=== PATIENT | female | born 1955 | race Caucasian/White ===

== ENCOUNTER 2019-01-13 17:05 | Inpatient (IN) ==
[2019-01-13] MEDS ORDERED: ALBUT/IPRATROP 3MG/0.5MG NEB 3 ML VIAL NEB STA ×2 (17:35→19:48)
--- NOTE | 2019-01-13 17:56 | XRay Report ---
XR chest 1V portable HISTORY: 63 years-old Female febrile, cough, hypoxic, ro pna acute cough with fever and hypoxia COMPARISON: Chest CT 02/14/2016, chest radiograph 02/14/2016 TECHNIQUE: Portable AP view of the chest FINDINGS: Cardiac silhouette is enlarged, unchanged. Mild pulmonary vascular congestion without pneumothorax, l arge pleural effusion or overt pulmonary edema. Ill-defined bibasilar opacities. Bones of the chest a ppear grossly intact. IMPRESSION: 1. Cardiomegaly without overt pulmonary edema. 2. Bibasilar opacities are likely secondary to summation density with mild atelectasis or pneumonitis also in the differential. The above report was generated using voice recognition software. It may contain grammatical, syntax o r spelling errors. Electronically signed by: Bismark Lieberman M.D. 01/13/2019 5:55 PM
[2019-01-13 18:09] LABS: Basophils # (auto) 0.02 K/uL (0-0.2); Basophils % (auto) 0.2 %; Eosinophils # (auto) 0.07 K/uL (0-0.5); Eosinophils % (auto) 0.8 %; Hematocrit (blood only) 45.1 % (37-47); Hemoglobin 13.9 g/dL (12.0-16.0); Immature Granulocytes # (auto) 0.02 K/uL (0.00-0.02); Immature Granulocytes % (auto) 0.2 %; Lymphocytes # (auto) 1.43 K/uL (1.2-3.4); Lymphocytes % (auto) 15.6 %; Mean Corpuscular Hgb Conc 30.8 g/dL (32-36); Mean Corpuscular Volume 97.6 fL (80-100); Mean Platelet Volume 10.3 fL (7.4-10.4); Monocytes # (auto) 0.49 K/uL (0.11-0.59); Monocytes % (auto) 5.4 %; Neutrophils # (auto) 7.11 K/uL (1.4-6.5); Neutrophils % (auto) 77.8 %; Platelet Count 211 K/uL (130-400); RDW Coefficient of Variation 15.3 % (11.5-14.5); RDW Standard Deviation 54.6 fL (36.4-46.3); Red Blood Count 4.62 M/uL (4.2-5.4); White Blood Count 9.14 K/uL (4.8-10.8)
[2019-01-13 18:25] LABS: Base Excess VBG 6.6 mEq/L; Oxygen Saturation VBG 70.8 %; pH VBG 7.37 (7.36-7.41)
[2019-01-13] MEDS ORDERED: KETOROLAC (**for OR use only**) 30 MG/ML VIAL IV ONE (18:25)
[2019-01-13] MEDS ORDERED: METOCLOPRAMIDE HCL INJ 5 MG/ML 2 ML VIAL IV ONE (18:28)
[2019-01-13] MEDS ORDERED: DiphenhydrAMINE HCL 50 MG/ML VIAL IV STA (18:28)
[2019-01-13 18:33] LABS: Alanine Aminotransferase 27 U/L (12-78); Albumin Level 3.6 gm/dl (3.4-5.0); Aspartate Aminotransferase 17 U/L (15-37); BUN Creatinine Ratio 28.3 (10-20); Bilirubin Direct 0.1 mg/dl (0-0.2); Blood Urea Nitrogen 17 mg/dl (7-18); Calcium 9.1 mg/dl (8.5-10.1); Carbon Dioxide 32 mmol/L (21-32); Chloride 99 mmol/L (98-107); Creatinine Clr Calc Pharmacy 103.6 ml/min; Est GFR (African American) 113.4; Est GFR (Non-African American) 97.8; Glucose 107 mg/dl (70-99); Potassium 4.6 mmol/L (3.5-5.1); Sodium 135 mmol/L (136-145)
[2019-01-13 18:37] LABS: Alkaline Phosphatase 79 U/L (45-117); Bilirubin,Total 0.4 mg/dl (0.2-1); Total Protein 8.1 gm/dl (6.4-8.2)
[2019-01-13 18:44] LABS: Appearance Urine Clear (Clear); Bacteria Urine Automated 1+ (Negative); Bilirubin Urine Negative (Negative); Blood Urine Negative (Negative); Color Urine Yellow; Epithelial Cell Urine Auto >30 /lpf (0-5); Glucose Urine UA Negative (Negative); Ketones Urine Negative (Negative); Leukocyte Esterase Urine Negative (Negative); Nitrite Urine Negative (Negative); Protein Urine Trace (Negative); RBC Urine Automated 0-4 /hpf (0-4); Specific Gravity Urine 1.019 (1.000-1.030); Urobilinogen Urine Negative (Negative); pH Urine 6.5 (4.5-7.5)
[2019-01-13 18:48] LABS: Influenza A virus by PCR Neg for Influ A (Neg); Influenza B virus by PCR Neg for Influ B (Neg)
[2019-01-13 18:49] LABS: Partial Thromboplastin Time 26.8 Seconds (21.0-31.0); Prothrombin Time 10.4 Seconds (9.0-12.0)
[2019-01-13 18:59] LABS: Troponin I < 0.015 ng/ml (0-0.045)
[2019-01-13] MEDS ORDERED: OPTIRAY 320 125ml IV PRN (19:19)
--- NOTE | 2019-01-13 19:31 | CT Scan Report ---
CT OF THE HEAD WITHOUT CONTRAST CLINICAL HISTORY: Headache. COMPARISON STUDY: No previous studies for comparison. CT DOSE: 537.48 mGy.cm TECHNIQUE: Helical axial images of the head were obtained without IV contrast. Automated exposure con trol was utilized for the study. A dose lowering technique was utilized adhering to the principles o f ALARA. FINDINGS: No acute intracranial hemorrhage, midline shift or mass effect is present. Exam is mildly c ompromised by artifact. The basilar cisterns are patent. There are no extra-axial collections. Ventri cular system is normal. Aguilar-white differentiation is maintained. There are no findings to suggest ac [place]vik dural sinus thrombosis or acute territorial infarct. There are no significant calvarial abnormali ties. IMPRESSION: No acute intracranial findings. Electronically signed by: Nehemias Holt M.D. 01/13/2019 7:29 PM
--- NOTE | 2019-01-13 19:42 | CT Scan Report ---
CT ANGIOGRAPHY OF THE CHEST, PULMONARY EMBOLUS PROTOCOL CLINICAL HISTORY: Shortness of breath. Evaluate for pulmonary embolus. COMPARISON STUDY: Chest CT February 14, 2016. Chest radiograph performed earlier today. TECHNIQUE: Following IV administration of 119 mL of Optiray-320, helical axial images of the chest we re obtained utilizing the pulmonary embolus protocol. Maximal intensity projections and sagittal and coronal reformats were viewed on an independent 3D workstation. IV contrast was administered withou t complication. Automated exposure control was utilized for the study. A dose lowering technique wa s utilized adhering to the principles of ALARA. CT DOSE: 817.72 mGy.cm FINDINGS: No pulmonary emboli are identified. There is mild dilatation of the central pulmonary daisha kiah. The heart is moderately enlarged. There is moderate coronary artery calcification. There is no pericardial effusion. No enlarged axillary, mediastinal or hilar lymph nodes are present. Central air ways are patent. There is mild emphysema. Mild right lower lobe airspace opacity is present. Mild int erlobular septal thickening is present. There is no pneumothorax or pleural effusion. Bony thorax is unremarkable. Upper abdomen is unremarkable. A 5 mm subpleural lingular nodule on axial image 116 of [address] of February 14, 2016. This is benign given stability. IMPRESSION: 1. No pulmonary emboli identified. 2. Mild right lower lobe airspace opacity which favors atelectasis although a small focus of pneumoni a could appear similar. 3. Moderate cardiomegaly and coronary artery calcification. 4. Mild dilatation of the central pulmonary arteries which raises the possibility of portal hypertens ion. 5. Mild interstitial pulmonary edema. Electronically signed by: Nehemias Holt M.D. 01/13/2019 7:41 PM
[2019-01-13] MEDS ORDERED: methylPREDNISolone 125 MG/2 ML VIAL IV STA (19:48)
--- NOTE | 2019-01-13 20:05 | Emergency Department Note ---
Entered by Moose Denney acting as a scribe for Shaun Mcnulty History of Present Illness General Chief complaint: Fever Stated complaint: FEVER OXYGEN LOW Time Seen by Provider: 01/13/19 17:30 Source: patient Mode of arrival: ambulatory History of Present Illness Provider complaint: Fever Onset (ago): hour(s) 3 Location: head Pain Consistency: + constant Maximum Pain Intensity: 10 Current Pain Intensity: 10 Associated symptoms: + headaches and + shortness of breath; no chest pain Patient is a 63 year old female who presents herself to the ER with complaint of a difficult he breathing beginning yesterday. Patient has been having accompanying symptoms of headaches and subjective fevers. Patient has been a past smoker for 47 years having smoked 2 packs a day. She currently rates her pain as constant at value of 10 on the pain intensity scale. Patient denies chest pain. No nausea, vomiting, diarrhea, neck pain, pain with urination. Home Medications Home Medications Medication Instructions Recorded Confirmed Type acetaminophen [Tylenol Extra 1,500 mg PO Q4H PRN 01/13/19 01/13/19 History Strength] amlodipine 5 mg PO M 01/13/19 01/13/19 History aspirin 81 mg PO QA 01/13/19 01/13/19 History carvedilol 3.125 mg PO BID 01/13/19 01/13/19 History fluticasone propionate [Flonase 2 spray INTRANASAL QA 01/13/19 01/13/19 History Allergy Relief] furosemide 20 mg PO HS 01/13/19 01/13/19 History ipratropium-albuterol [Combivent 1 puff INHALATION Q4H PRN 01/13/19 01/13/19 History Respimat] levothyroxine 125 mcg PO QAM 01/13/19 01/13/19 History lisinopril 40 mg PO QAM 01/13/19 01/13/19 History loratadine 10 mg PO QAM 01/13/19 01/13/19 History simvastatin 20 mg PO HS 01/13/19 01/13/19 History Allergies Allergy/AdvReac Type Severity Reaction Status Date / Time metoprolol AdvReac Mild Hypertensio Verified 01/13/19 18:40 n tetracycline AdvReac Mild HEADACHE Verified 01/13/19 18:00 Past Med/Surg History Medical History Constipation Social History Preferred Language: Bahraini Feels Safe at Home: Yes Smoking Status: Current every day smoker Review of Systems See HPI for pertinent positives & negatives. and A total of 10 systems reviewed and were otherwise negative Physical Exam Vital Signs Vital Signs - 24 hr 01/13/19 17:24 01/13/19 17:50 01/13/19 18:00 Temperature 36.7 C Temperature Source Oral Sepsis Recent Fever Within 48 Hours No Sepsis Action Taken by Nursing No Action Required Pulse Rate 79 80 79 Pulse Rate from SpO2 Sensor 79 79 Pulse Rhythm Regular Pulse Strength Normal Respiratory Rate 16 17 21 Respiratory Effort / Characteristics Non-Labored Respiratory Depth Normal Respiratory Pattern Regular Blood Pressure 160/81 H 171/95 H Blood Pressure Mean 107 120 Blood Pressure Position Sitting Pulse Oximetry 82 L 94 94 Oxygen Delivery Method Room Air Room Air Oxygen Flow Rate 01/13/19 18:01 01/13/19 18:05 01/13/19 18:10 Temperature Temperature Source Sepsis Recent Fever Within 48 Hours Sepsis Action Taken by Nursing Pulse Rate 78 77 Pulse Rate from SpO2 Sensor 79 77 Pulse Rhythm Pulse Strength Respiratory Rate 24 13 Respiratory Effort / Characteristics Respiratory Depth Respiratory Pattern Blood Pressure 178/87 H Blood Pressure Mean 117 Blood Pressure Position Pulse Oximetry 93 94 93 Oxygen Delivery Method Nasal Cannula Nasal Cannula Oxygen Flow Rate 3 3 01/13/19 18:21 01/13/19 18:30 01/13/19 18:32 Temperature Temperature Source Sepsis Recent Fever Within 48 Hours Sepsis Action Taken by Nursing Pulse Rate 84 75 79 Pulse Rate from SpO2 Sensor 75 81 Pulse Rhythm Pulse Strength Respiratory Rate 16 12 12 Respiratory Effort / Characteristics Respiratory Depth Respiratory Pattern Blood Pressure 161/71 H Blood Pressure Mean 101 Blood Pressure Position Pulse Oximetry 93 94 Oxygen Delivery Method Oxygen Flow Rate 01/13/19 18:40 01/13/19 18:50 01/13/19 19:00 Temperature Temperature Source Sepsis Recent Fever Within 48 Hours Sepsis Action Taken by Nursing Pulse Rate 75 81 76 Pulse Rate from SpO2 Sensor 76 80 76 Pulse Rhythm Pulse Strength Respiratory Rate 21 20 23 Respiratory Effort / Characteristics Respiratory Depth Respiratory Pattern Blood Pressure Blood Pressure Mean Blood Pressure Position Pulse Oximetry 93 91 94 Oxygen Delivery Method Oxygen Flow Rate 01/13/19 19:01 01/13/19 19:10 Temperature Temperature Source Sepsis Recent Fever Within 48 Hours Sepsis Action Taken by Nursing Pulse Rate 74 78 Pulse Rate from SpO2 Sensor 75 78 Pulse Rhythm Pulse Strength Respiratory Rate 20 20 Respiratory Effort / Characteristics Respiratory Depth Respiratory Pattern Blood Pressure 141/91 H Blood Pressure Mean 107 Blood Pressure Position Pulse Oximetry 93 95 Oxygen Delivery Method Oxygen Flow Rate GENERAL: She is oriented to person, place, and time. She appears well-developed and well-nourished. She does not appear distressed. HENT: Exam performed. Head: Normocephalic and atraumatic. Pain on palpation of the frontal and maxillary sinuses reproducing the complaint of headache Right Ear: External ear normal. No mastoid tenderness. Left Ear: External ear normal. No mastoid tenderness. Mouth/Throat: The oropharynx is clear and moist. No trismus in the jaw. No dental abscesses or uvula swelling. No oropharyngeal exudate or tonsillar abscesses. EYES: Conjunctivae and EOM are normal. Pupils are equal, round, and reactive to light. Right eye exhibits no discharge. Left eye exhibits no discharge. No scleral icterus. NECK: Normal range of motion. Neck supple. No JVD present. No spinous process tenderness present. No carotid bruit present. No rigidity. No tracheal deviation and normal range of motion present. No Brudzinski's sign and no Kernig's sign noted. CV: Normal rate, regular rhythm, normal heart sounds and intact distal pulses. There is no peripheral edema. Palpable radial pulses bue. PULM/CHEST: Diminished breath sounds bilaterally Chest Wall: She exhibits no tenderness. ABD: The abdomen is soft. Bowel sounds are normal. She has no distension. No mass is present. There is no tenderness. There is no rebound, no guarding, no Jones's sign and no tenderness at McBurney's point. Rovsig negative MUSC/SKEL: Normal range of motion. There is no peripheral edema, tenderness or deformity. LYMPH: No cervical adenopathy. NEURO: She is alert and oriented to person, place, and time. She has normal strength. No cranial nerve deficit or sensory deficit. Coordination and gait no rmal. GCS eye subscore is 4. GCS verbal subscore is 5. GCS motor subscore is 6. cerbellar tests wnl. SKIN: Skin is warm and dry. She is not diaphoretic. PSYCH: She has a normal mood and affect. Her behavior is normal. Judgment and thought content normal. Course 173: Past medical records reviewed. The patient was evaluated in room A10. A complete history and physical examination was performed. She was found to be 82% on room room air 1 pulse oximetry was applied. Placed on 2 L nasal cannula which improved her condition. 1932: The patients vital signs are stable on continuous nasal cannula oxygen. Patient has mild expiratory wheezing. Status post Benadryl and Reglan medication, the headache pain is now 1 out of 10. 1951: Vital signs stable on nasal cannula oxygen. Labs within normal limits. Head CT within normal limits. CTA of the chest showed no PE, mild right lower lobe airspace opacity favoring atelectasis, however the radiologist could not rule out small focus of pneumonia. Patient continues to have mild expiratory wh eezing. We will treat with repeat duo nebs and steroids. Patient will be admitted for hypoxia, although the patient never been formally diagnosed with COPD, it is thought that she has an underlying diagnosis of COPD given her clinical presentation as well as her long smoking history. I spoke with Dr. Harmon regarding the patient's case. He will admit the patient under his care for further treatment. The patient has verbalized agreement of the treatment plan. Dr. Harmon who states that he wishes to evaluate the patient first and determine which if any antibiotics are needed at this time. Administered Medications Ioversol (Optiray 320 125ml) 119 ml IV ONCE PRN PRN Reason: Interaction Checking Stop: 01/17/19 19:18 Last Admin: 01/13/19 19:20 Dose: 119 ml Documented by: [id number] Discontinued Medications Albuterol (Duoneb) 3 ml NEB NOW STA Stop: 01/13/19 17:36 Last Admin: 01/13/19 18:12 Dose: 3 ml Documented by: [id number] Diphenhydramine HCl (Benadryl) 25 mg IV NOW STA Stop: 01/13/19 18:29 Last Admin: 01/13/19 18:39 Dose: 25 mg Documented by: [id number] Ketorolac Tromethamine (Toradol (For Or Use Only)) 15 mg IV ONE ONE Stop: 01/13/19 18:26 Last Admin: 01/13/19 18:43 Dose: Not Given Documented by: [id number] Metoclopramide HCl (Reglan) 5 mg IV ONE ONE Stop: 01/13/19 18:29 Last Admin: 01/13/19 18:39 Dose: 5 mg Documented by: [id number] Medical Decision Making Medical Records Attestation: I reviewed the patient's medical records. Home Medications Current Medication List: was personally reviewed by me Laboratory Data Attestation: I reviewed the patient's lab results. Result diagrams: 01/13/19 17:59 01/13/19 17:59 Lab Results 01/13/19 01/13/19 01/13/19 Range/Units 17:59 17:59 17:59 WBC 9.14 (4.8-10.8) K/uL RBC 4.62 (4.2-5.4) M/uL Hgb 13.9 (12.0-16.0) g/dL Hct 45.1 (37-47) % MCV 97.6 (80-100) fL MCH 30.1 (25-34) pg MCHC 30.8 L (32-36) g/dL RDW Std Deviation 54.6 H (36.4-46.3) fL RDW Coeff of Naa 15.3 H (11.5-14.5) % Plt Count 211 (130-400) K/uL MPV 10.3 (7.4-10.4) fL Immature Gran % (Auto) 0.2 % Neut % (Auto) 77.8 % Lymph % (Auto) 15.6 % [place] % (Auto) 5.4 % Eos % (Auto) 0.8 % Baso % (Auto) 0.2 % Immature Gran # (Auto) 0.02 (0.00-0.02) K/uL Neut # (Auto) 7.11 H (1.4-6.5) K/uL Lymph # (Auto) 1.43 (1.2-3.4) K/uL [place] # (Auto) 0.49 (0.11-0.59) K/uL Eos # (Auto) 0.07 (0-0.5) K/uL Baso # (Auto) 0.02 (0-0.2) K/uL PT 10.4 (9.0-12.0) Seconds INR 1.0 (0.9-1.1) APTT 26.8 (21.0-31.0) Seconds PTT Ratio 1.0 VBG pH (7.36-7.41) VBG pCO2 (38-50) mmHg VBG pO2 mmHg VBG HCO3 mmol/L VBG O2 Saturation % VBG Base Excess mEq/L Barometric Pressure mm/Hg Sodium 135 L (136-145) mmol/L Potassium 4.6 (3.5-5.1) mmol/L Chloride 99 (98-107) mmol/L Carbon Dioxide 32 (21-32) mmol/L Anion Gap 5.0 (3-11) BUN 17 (7-18) mg/dl Creatinine 0.61 (0.6-1.2) mg/dl Est Cr Clr Drug Dosing 103.6 ml/min Est GFR ( Amer) 113.4 Est GFR (Non-Af Amer) 97.8 BUN/Creatinine Ratio 28.3 H (10-20) Glucose 107 H (70-99) mg/dl Lactate (0.4-2.0) mmol/L Calcium 9.1 (8.5-10.1) mg/dl Magnesium 2.0 (1.8-2.4) mg/dl Total Bilirubin 0.4 (0.2-1) mg/dl Direct Bilirubin 0.1 (0-0.2) mg/dl AST 17 (15-37) U/L ALT 27 (12-78) U/L Alkaline Phosphatase 79 (45-117) U/L Troponin I < 0.015 (0-0.045) ng/ml Total Protein 8.1 (6.4-8.2) gm/dl Albumin 3.6 (3.4-5.0) gm/dl Lipase 105 (73-393) U/L Urine Color Urine Appearance (Clear) Urine pH (4.5-7.5) Ur Specific [place] (1.000-1.030) Urine Protein (Negative) Urine Glucose (UA) (Negative) Urine Ketones (Negative) Urine Blood (Negative) Urine Nitrite (Negative) Urine Bilirubin (Negative) Urine Urobilinogen (Negative) Ur Leukocyte Esterase (Negative) Urine WBC (Auto) (0-5) /hpf Urine RBC (Auto) (0-4) /hpf U Hyaline Cast (Auto) (0-5) /lpf U Epithel Cells (Auto) (0-5) /lpf Urine Bacteria (Auto) (Negative) Influenza Type A (PCR) (Neg) Influenza Type B (PCR) (Neg) 01/13/19 01/13/19 01/13/19 Range/Units 17:59 17:59 17:59 WBC (4.8-10.8) K/uL RBC (4.2-5.4) M/uL Hgb (12.0-16.0) g/dL Hct (37-47) % MCV (80-100) fL MCH (25-34) pg MCHC (32-36) g/dL RDW Std Deviation (36.4-46.3) fL RDW Coeff of Naa (11.5-14.5) % Plt Count (130-400) K/uL MPV (7.4-10.4) fL Immature Gran % (Auto) % Neut % (Auto) % Lymph % (Auto) % [place] % (Auto) % Eos % (Auto) % Baso % (Auto) % Immature Gran # (Auto) (0.00-0.02) K/uL Neut # (Auto) (1.4-6.5) K/uL Lymph # (Auto) (1.2-3.4) K/uL [place] # (Auto) (0.11-0.59) K/uL Eos # (Auto) (0-0.5) K/uL Baso # (Auto) (0-0.2) K/uL PT (9.0-12.0) Seconds INR (0.9-1.1) APTT (21.0-31.0) Seconds PTT Ratio VBG pH 7.37 (7.36-7.41) VBG pCO2 61 H (38-50) mmHg VBG pO2 39 mmHg VBG HCO3 34 mmol/L VBG O2 Saturation 70.8 % VBG Base Excess 6.6 mEq/L Barometric Pressure 733.3 mm/Hg Sodium (136-145) mmol/L Potassium (3.5-5.1) mmol/L Chloride (98-107) mmol/L Carbon Dioxide (21-32) mmol/L Anion Gap (3-11) BUN (7-18) mg/dl Creatinine (0.6-1.2) mg/dl Est Cr Clr Drug Dosing ml/min Est GFR ( Amer) Est GFR (Non-Af Amer) BUN/Creatinine Ratio (10-20) Glucose (70-99) mg/dl Lactate 1.0 (0.4-2.0) mmol/L Calcium (8.5-10.1) mg/dl Magnesium Cancelled (1.8-2.4) mg/dl Total Bilirubin (0.2-1) mg/dl Direct Bilirubin (0-0.2) mg/dl AST (15-37) U/L ALT (12-78) U/L Alkaline Phosphatase (45-117) U/L Troponin I Cancelled (0-0.045) ng/ml Total Protein (6.4-8.2) gm/dl Albumin (3.4-5.0) gm/dl Lipase Cancelled (73-393) U/L Urine Color Urine Appearance (Clear) Urine pH (4.5-7.5) Ur Specific [place] (1.000-1.030) Urine Protein (Negative) Urine Glucose (UA) (Negative) Urine Ketones (Negative) Urine Blood (Negative) Urine Nitrite (Negative) Urine Bilirubin (Negative) Urine Urobilinogen (Negative) Ur Leukocyte Esterase (Negative) Urine WBC (Auto) (0-5) /hpf Urine RBC (Auto) (0-4) /hpf U Hyaline Cast (Auto) (0-5) /lpf U Epithel Cells (Auto) (0-5) /lpf Urine Bacteria (Auto) (Negative) Influenza Type A (PCR) (Neg) Influenza Type B (PCR) (Neg) 01/13/19 01/13/19 Range/Units 18:10 18:22 WBC (4.8-10.8) K/uL RBC (4.2-5.4) M/uL Hgb (12.0-16.0) g/dL Hct (37-47) % MCV (80-100) fL MCH (25-34) pg MCHC (32-36) g/dL RDW Std Deviation (36.4-46.3) fL RDW Coeff of Naa (11.5-14.5) % Plt Count (130-400) K/uL MPV (7.4-10.4) fL Immature Gran % (Auto) % Neut % (Auto) % Lymph % (Auto) % [place] % (Auto) % Eos % (Auto) % Baso % (Auto) % Immature Gran # (Auto) (0.00-0.02) K/uL Neut # (Auto) (1.4-6.5) K/uL Lymph # (Auto) (1.2-3.4) K/uL [place] # (Auto) (0.11-0.59) K/uL Eos # (Auto) (0-0.5) K/uL Baso # (Auto) (0-0.2) K/uL PT (9.0-12.0) Seconds INR (0.9-1.1) APTT (21.0-31.0) Seconds PTT Ratio VBG pH (7.36-7.41) VBG pCO2 (38-50) mmHg VBG pO2 mmHg VBG HCO3 mmol/L VBG O2 Saturation % VBG Base Excess mEq/L Barometric Pressure mm/Hg Sodium (136-145) mmol/L Potassium (3.5-5.1) mmol/L Chloride (98-107) mmol/L Carbon Dioxide (21-32) mmol/L Anion Gap (3-11) BUN (7-18) mg/dl Creatinine (0.6-1.2) mg/dl Est Cr Clr Drug Dosing ml/min Est GFR ( Amer) Est GFR (Non-Af Amer) BUN/Creatinine Ratio (10-20) Glucose (70-99) mg/dl Lactate (0.4-2.0) mmol/L Calcium (8.5-10.1) mg/dl Magnesium (1.8-2.4) mg/dl Total Bilirubin (0.2-1) mg/dl Direct Bilirubin (0-0.2) mg/dl AST (15-37) U/L ALT (12-78) U/L Alkaline Phosphatase (45-117) U/L Troponin I (0-0.045) ng/ml Total Protein (6.4-8.2) gm/dl Albumin (3.4-5.0) gm/dl Lipase (73-393) U/L Urine Color Yellow Urine Appearance Clear (Clear) Urine pH 6.5 (4.5-7.5) Ur Specific [place] 1.019 (1.000-1.030) Urine Protein Trace H (Negative) Urine Glucose (UA) Negative (Negative) Urine Ketones Negative (Negative) Urine Blood Negative (Negative) Urine Nitrite Negative (Negative) Urine Bilirubin Negative (Negative) Urine Urobilinogen Negative (Negative) Ur Leukocyte Esterase Negative (Negative) Urine WBC (Auto) 1-5 (0-5) /hpf Urine RBC (Auto) 0-4 (0-4) /hpf U Hyaline Cast (Auto) 1-5 (0-5) /lpf U Epithel Cells (Auto) >30 H (0-5) /lpf Urine Bacteria (Auto) 1+ H (Negative) Influenza Type A (PCR) Neg for Influ A (Neg) Influenza Type B (PCR) Neg for Influ B (Neg) Imaging Data Attestation: I personally reviewed and interpreted this imaging study as follows: Radiologist's Impression: Radiology results as stated below per my review and the radiologist's interpretation: XR chest 1V portable HISTORY: 63 years-old Female febrile, cough, hypoxic, ro pna acute cough with fever and hypoxia COMPARISON: Chest CT 02/14/2016, chest radiograph 02/14/2016 TECHNIQUE: Portable AP view of the chest FINDINGS: Cardiac silhouette is enlarged, unchanged. Mild pulmonary vascular congestion wi thout pneumothorax, large pleural effusion or overt pulmonary edema. Ill-defined bibasilar opacities. Bones of the chest appear grossly intact. IMPRESSION: 1. Cardiomegaly without overt pulmonary edema. CT OF THE HEAD WITHOUT CONTRAST CLINICAL HISTORY: Headache. COMPARISON STUDY: No previous studies for comparison. CT DOSE: 537.48 mGy.cm TECHNIQUE: Helical axial images of the head were obtained without IV contrast. Automated exposure control was utilized for the study. A dose lowering technique was utilized adhering to the principles of ALARA. FINDINGS: No acute intracranial hemorrhage, midline shift or mass effect is present. Exam is mildly compromised by artifact. The basilar cisterns are patent. There are no extra-axial collections. Ventricular system is normal. Aguilar-white differentiation is maintained. There are no findings to suggest acute dural sinus thrombosis or acute territorial infarct. There are no significant calvarial abnormalities. IMPRESSION: No acute intracranial findings. Electronically signed by: Nehemias Holt M.D. 01/13/2019 7:29 PM Dictated: 01/13/191926 Transcribed: 01/13/191926 2. Bibasilar opacities are likely secondary to summation density with mild atelectasis or pneumonitis also in the differential. The above report was generated using voice recognition software. It may contain grammatical, syntax or spelling errors. Electronically signed by: Bismark Lieberman M.D. 01/13/2019 5:55 PM Dictated: 01/13/191752 Transcribed: 01/13/191752 CT ANGIOGRAPHY OF THE CHEST, PULMONARY EMBOLUS PROTOCOL CLINICAL HISTORY: Shortness of breath. Evaluate for pulmonary embolus. COMPARISON STUDY: Chest CT February 14, 2016. Chest radiograph performed earlier today. TECHNIQUE: Following IV administration of 119 mL of Optiray-320, helical axial images of the chest were obtained utilizing the pulmonary embolus protocol. Maximal intensity projections and sagittal and coronal reformats were viewed on an independent 3D workstation. IV contrast was administered without complication. Automated exposure control was utilized for the study. A dose lowering technique was utilized adhering to the principles of ALARA. CT DOSE: 817.72 mGy.cm FINDINGS: No pulmonary emboli are identified. There is mild dilatation of the central pulmonary arteries. The heart is moderately enlarged. There is moderate coronary artery calcification. There is no pericardial effusion. No enlarged axillary, mediastinal or hilar lymph nodes are present. Central airways are patent. There is mild emphysema. Mild right lower lobe airspace opacity is present. Mild interlobular septal thickening is present. There is no pneumothorax or pleural effusion. Bony thorax is unremarkable. Upper abdomen is unremarkable. A 5 mm subpleural lingular nodule on axial image 116 of [address] of February 14, 2016. This is benign given stability. IMPRESSION: 1. No pulmonary emboli identified. 2. Mild right lower lobe airspace opacity which favors atelectasis although a small focus of pneumonia could appear similar. 3. Moderate cardiomegaly and coronary artery calcification. 4. Mild dilatation of the central pulmonary arteries which raises the possibil ity of portal hypertension. 5. Mild interstitial pulmonary edema. Electronically signed by: Nehemias Holt M.D. 01/13/2019 7:41 PM Dictated: 01/13/191930 Transcribed: 01/13/191930 ECG Data Attestation: I personally reviewed and interpreted this ECG as follows: Indication: other (Fever) Rate (beats per minute): 79 Rhythm: normal sinus Findings: + other (Pr qrs qtc wnl ); no ST depression and no ST elevation Blood Pressure Blood Pressure Findings: Elevated blood pressure Blood Pressure Disposition: Referred to patients primary care provider [facility] Narrative 1731: Past medical records reviewed. The patient was evaluated in room A10. A complete history and physical examination was performed. She was found to be 82% on room room air 1 pulse oximetry was applied. Placed on 2 L nasal cannula which improved her condition. 1932: The patients vital signs are stable on continuous nasal cannula oxygen. Patient has mild expiratory wheezing. Status post Benadryl and Reglan medication, the headache pain is now 1 out of 10. 1951: Vital signs stable on nasal cannula oxygen. Labs within normal limits. Head CT within normal limits. CTA of the chest showed no PE, mild right lower lobe airspace opacity favoring atelectasis, however the radiologist could not rule out small focus of pneumonia. Patient continues to have mild expiratory wheezing. We will treat with repeat duo nebs and steroids. Patient will be admitted for hypoxia, although the patient never been formally diagnosed with COPD, it is thought that she has an underlying diagnosis of COPD given her clinical presentation as well as her long smoking history. I spoke with Dr. Harmon regarding the patient's case. He will admit the patient under his care for further treatment. The patient has verbalized agreement of the treatment plan. Dr. Harmon who states that he wishes to evaluate the patient first and determine which if any antibiotics are needed at this time. Impression & Plan Hypoxia Discharge Plan Visit Data Chief Complaint: Fever Stated Complaint: FEVER OXYGEN LOW ED Provider: Shaun Mcnulty Discharge Problem: Hypoxia Forms Stand Alone Forms: My [facility] Prescriptions Prescriptions: No Action amlodipine 5 mg tablet 5 mg PO QAM RF: 0 aspirin 81 mg Tablet,Delayed Release (Dr/Ec) 81 mg PO QAM RF: 0 acetaminophen [Tylenol Extra Strength] 500 mg Tablet 1,500 mg PO Q4H PRN (Reason: Pain) RF: 0 carvedilol 3.125 mg tablet 3.125 mg PO BID RF: 0 simvastatin 20 mg tablet 20 mg PO HS RF: 0 levothyroxine 125 mcg tablet 125 mcg PO QAM RF: 0 furosemide 20 mg tablet 20 mg PO HS RF: 0 lisinopril 40 mg tablet 40 mg PO QAM RF: 0 fluticasone propionate [Flonase Allergy Relief] 50 mcg/actuation [place] ,Suspension 2 spray INTRANASAL QAM RF: 0 loratadine 10 mg Tablet 10 mg PO QAM RF: 0 Combivent Respimat 20-100 mcg/actuation Mist 1 puff INHALATION Q4H PRN (Reason: Wheezing) RF: 0 Referrals Referrals: Jesse Hannon MD [Primary Care Provider] - The scribe's documentation has been prepared under my direction and personally reviewed by me in its entirety. I confirm that the note above accurately reflects all work, treatment, procedures, and medical decision making performed by me.
[2019-01-13] MEDS ORDERED: NITROGLYCERIN SL 0.4 MG/TAB TAB SL PRN (21:41)
[2019-01-13] MEDS ORDERED: IPRATROPIUM BROMIDE/ALBUTEROL respimat INH INH PRN (21:41)
[2019-01-13] MEDS ORDERED: FUROSEMIDE 20 MG TAB PO SCH (21:41)
[2019-01-13] MEDS ORDERED: ONDANSETRON INJ 2 MG/ML 2 ML VIAL IV PRN (21:41)
[2019-01-13] MEDS: HEPARIN SOD 5,000 UNIT/0.5 ML VIAL SQ SCH (22:39)
[2019-01-13] MEDS: SIMVASTATIN 20 MG TAB PO SCH (22:39)
[2019-01-13] MEDS: CARVEDILOL 3.125 MG TAB PO SCH (22:39)
[2019-01-13] MEDS: LEVOFLOXACIN/D5W 750 MG/150 ML BAG IV SCH (22:40)
[2019-01-13] MEDS: IPRATROPIUM BROMIDE NEB SOLN 0.02% 2.5 ML VIAL INH SCH (22:44)
[2019-01-13] MEDS: LEVALBUTEROL 1.25MG/0.5ML NEB INH SCH (22:46)
--- NOTE | 2019-01-13 23:36 | History and Physical Report ---
DATE OF ADMISSION: 01/13/2019 CHIEF COMPLAINT: Headache and fever. HISTORY OF PRESENT ILLNESS: This is a 63-year-old female with past medical history significant for hyperlipidemia, hypothyroidism, prediabetes, coronary artery disease, chronic diastolic heart failure, carotid stenosis, obesity and tobacco use disorder who went to convenient care visit with severe headache and there in the convenient care she was found to have temperature of 101 and she was sent here. In the Emergency Room, her oxygen saturation was 82% on room air and she is saturating okay on 3 liters. She states the headaches are better now. She states she then felt short of breath. Denies any cough. She was having some sinus drainage, but that has improved. No earache. No blurred vision. No sore throat. No difficulty swallowing. Appetite is okay. No chest pain. No nausea. No abdominal pain. Normal bowel and bladder movements. No hematuria. No burning micturition. No melena or hematochezia. No rash. Currently feeling better. She lives alone. She walks without any help. Daughter is in the room. Daughter thinks she snores in the night when asked about it. ALLERGIES: METOPROLOL AND TETRACYCLINE. PAST MEDICAL HISTORY: As mentioned above. PAST SURGICAL HISTORY: Dilatation and curettage, laparoscopic cholecystectomy with cholangiography, ligation of oviducts, tonsillectomy. MEDICATIONS: The patient is on amlodipine 5 mg p.o. daily, levothyroxine 125 mcg p.o. daily, Coreg 3.125 mg p.o. b.i.d., Lasix 20 mg p.o. daily, lisinopril 40 mg p.o. daily, simvastatin 20 mg p.o. at bedtime, Flonase 2 sprays into each nostril daily, Claritin 10 mg p.o. daily, Combivent 1 puff every 4 hours p.r.n., Tylenol 325 mg p.o. q. 6 hours p.r.n. and aspirin 81 mg p.o. daily. FAMILY HISTORY: Significant for mother had rheumatoid arthritis and osteoarthritis, heart disorder in her 60s. Father had chronic obstructive pulmonary disease and asthma. Brother and sister have diabetes. SOCIAL HISTORY: She lives alone. Her about a month ago, quit smoking in 2017, smoked on average 1 pack a day for 35 years. Alcohol occasionally. No drug use. REVIEW OF SYMPTOMS: As per HPI. Rest of the review of symptoms is negative. PHYSICAL EXAMINATION: GENERAL: The patient is obese, currently not in acute distress. VITAL SIGNS: Temperature 36.7, pulse 77, respiratory rate 20, blood pressure 140/73 and oxygen 91% on 3 liters. HEENT: No pallor. No icterus. Pupils are equal, round and reactive to light. NECK: No JVD. No neck masses. No carotid bruits. CARDIOVASCULAR: S1, S2 heard. Regular rate and rhythm. No murmur. No gallop. RESPIRATORY: Normal AP diameter. No accessory muscle use. Diminished bilateral breath sounds. Occasional rhonchi. No wheezing. ABDOMEN: Soft. Bowel sounds present. Nontender. No distention. CENTRAL NERVOUS SYSTEM: Cranial nerves II through XII grossly intact. Nonfocal. EXTREMITIES: Trace pedal edema. No erythema seen. LABORATORY DATA: WBC 9.1, hemoglobin 13.9, hematocrit 45.1 and platelets 211. PT 10.4. INR 1. APTT 26.8. Venous blood gas: pH of 7.3, CO2 of 61, O2 of 39 and bicarbonate 34. Sodium 135, potassium 3.6, chloride 99, bicarbonate 32, BUN 17, creatinine 0.6, serum glucose 107, lactate 1, calcium 9.1, magnesium 2, total bilirubin 0.4, direct bilirubin 0.1, AST 17, ALT 27 and alkaline phosphatase 79. Troponin I less than 0.015. Lipase 105. Urinalysis, trace protein, otherwise unremarkable. Influenza A and B negative PCR. CT of the head, no acute intracranial findings. CT of the chest, no pulmonary emboli identified. Mild right lower airspace opacity which reveals atelectasis although small focus of pneumonia could also appear similar, cardiomegaly and coronary artery calcification, mild dilatation of central pulmonary arteries which there is a possibility of portal hypertension. Chest x-ray, cardiomegaly without overt pulmonary edema, bibasilar opacities mild atelectasis or pneumonitis. Electrocardiogram, normal sinus rhythm with rate of [address] changes seen. ASSESSMENT AND PLAN: This is a 63-year-old female went to care visit with severe headache and found to have fever and sent here to the Emergency Room and found to be in hypoxic at 82% on room air. The patient has a history of tobacco abuse, quit in 2017, smoked about 1 pack a day for 35 years. 1. Hypoxia, could be from chronic obstructive pulmonary disease exacerbation with diminished breath sounds and also possible pneumonia in right lower lobe, received Solu-Medrol and nebs in the Emergency Room. Currently saturating okay on 3 liters. We will continue oxygen, place on I.V. Solu-Medrol 40 mg t.i.d. and I.V. Levaquin. Follow the blood cultures. Nebs around the clock. Closely monitor on Med/Surg Tele. 2. History of non-ST elevation myocardial infarction, status post stent. Continue home medications of aspirin, Coreg and statin. Currently stable. 3. History of hypertension, continue Norvasc, Coreg and lisinopril. Monitor the blood pressure. 4. History of chronic diastolic congestive heart failure, continue home Lasix. The patient is on Coreg and lisinopril. 5. Hyperlipidemia, continue statin. 6. Prediabetes, we will place on diabetic diet and follow HbA1c level. Monitor blood sugars while on steroids. 7. Hypothyroidism, continue Synthroid. 8. Tobacco, quit in 2017. 9. Morbid obesity, may need nocturnal pulse ox study and two step prior to discharge and also may need sleep study as outpatient. 10. Deep venous thrombosis prophylaxis, we will place on heparin subQ. DISPOSITION: Closely monitor in the Med/Surg Tele. Level 1 full code. Physical therapy and occupational therapy prior to discharge. Social Service to help with discharge planning. TALID
[2019-01-14] MEDS: IPRATROPIUM BROMIDE NEB SOLN 0.02% 2.5 ML VIAL INH SCH ×4 (01:57→19:03)
[2019-01-14] MEDS: LEVALBUTEROL 1.25MG/0.5ML NEB INH SCH ×4 (01:58→19:03)
[2019-01-14] MEDS ORDERED: XOPENEX/ATROVENT 1.25mg/0.5MG NEB COMBO NEB SCH (02:00)
[2019-01-14] MEDS: methylPREDNISolone 40 MG in SYRINGE 0 ML IV SCH ×3 (03:57→21:21)
[2019-01-14 05:18] LABS: Eosinophils # (auto) 0.01 K/uL (0-0.5); Eosinophils % (auto) 0.1 %; Hematocrit (blood only) 45.5 % (37-47); Hemoglobin 14.5 g/dL (12.0-16.0); Immature Granulocytes # (auto) 0.03 K/uL (0.00-0.02); Immature Granulocytes % (auto) 0.3 %; Lymphocytes # (auto) 0.61 K/uL (1.2-3.4); Lymphocytes % (auto) 5.7 %; Mean Corpuscular Hgb Conc 31.9 g/dL (32-36); Mean Corpuscular Volume 96.4 fL (80-100); Mean Platelet Volume 9.7 fL (7.4-10.4); Monocytes # (auto) 0.08 K/uL (0.11-0.59); Monocytes % (auto) 0.8 %; Neutrophils # (auto) 9.91 K/uL (1.4-6.5); Neutrophils % (auto) 93.1 %; Platelet Count 195 K/uL (130-400); RDW Coefficient of Variation 14.9 % (11.5-14.5); RDW Standard Deviation 52.7 fL (36.4-46.3); Red Blood Count 4.72 M/uL (4.2-5.4); White Blood Count 10.64 K/uL (4.8-10.8)
[2019-01-14 05:45] LABS: BUN Creatinine Ratio 22.1 (10-20); Creatinine Clr Calc Pharmacy 91.6 ml/min; Est GFR (African American) 108.9; Magnesium 1.9 mg/dl (1.8-2.4); Potassium 4.4 mmol/L (3.5-5.1)
[2019-01-14] MEDS: HEPARIN SOD 5,000 UNIT/0.5 ML VIAL SQ SCH ×3 (06:22→21:23)
[2019-01-14] MEDS: LEVOTHYROXINE SODIUM 125 MCG TABLET PO SCH (06:23)
[2019-01-14 06:34] LABS: Estimated Average Glucose 146 mg/dl; Hemoglobin A1C 6.7 % (4.5-5.6)
[2019-01-14] MEDS: LISINOPRIL 40 MG TAB PO SCH (07:34)
[2019-01-14] MEDS: AMLODIPINE BESYLATE 5 MG TAB PO SCH (07:34)
[2019-01-14] MEDS: FLUTICASONE PROPIONATE NA SPR 16 GM BTL SCH (07:34)
[2019-01-14] MEDS: LORATADINE 10 MG TAB PO SCH (07:34)
[2019-01-14] MEDS: CARVEDILOL 3.125 MG TAB PO SCH ×2 (07:34→21:22)
[2019-01-14] MEDS: ASPIRIN 81 MG ECTAB PO SCH (07:34)
[2019-01-14] MEDS: ACETAMINOPHEN 325 MG TAB PO PRN ×2 (07:37→19:23)
[2019-01-14] MEDS ORDERED: CARBOHYDRATES FOR HYPOGLYCEMIA PO PRN (10:59)
[2019-01-14] MEDS ORDERED: GLUCAGON FOR INJ 1 MG VIAL SQ PRN (10:59)
[2019-01-14] MEDS ORDERED: GLUCOSE 10 TABS/TUBE PO PRN (10:59)
[2019-01-14] MEDS ORDERED: DEXTROSE 50% 50 ML SYRINGE IV PRN (10:59)
[2019-01-14] MEDS ORDERED: GLUCOSE 40% GEL 15 GM TUBE PO PRN (10:59)
[2019-01-14] MEDS ORDERED: PHARMACY GLYCEMIC MGMT CONSULT PRN (11:23)
--- NOTE | 2019-01-14 11:52 | Hospitalist Progress Note ---
Date of Service January 14, 2019 Assessment & Plan (1) Hypoxia: (2) Pneumonia: (3) Obesity (BMI 30.0-34.9): (4) Chronic diastolic (congestive) heart failure: (5) Pre-diabetes: (6) CAD (coronary artery disease): (7) Carotid stenosis: (8) HLD (hyperlipidemia): (9) Hypothyroid: Continue Abx, Nebs and steroids. Continue O2 and titrate as tolerated, Not on home O2, Spirometry, Ambulate, Lasix ROS-No Headache, No Visual Changes, No Nausea, No Vomiting, No Fever, No Chills, No Neck Pain or Stiffness, No Chest Pain, No Palpitations, No SOB, No PLASCENCIA, No Cough, No Sputum, No Wheezing, No Abdominal Pain, No Diarrhea, No Hematemesis, No Hemoptysis, No Unexpected Weight Loss, No Flank pain, No Melena, No Hematochezia, No Frequency, No Urgency, No Burning, No Hematuria, No Rashes, No Diaphoresis. Appetite is Normal, Feels fine Physical Exam Gen-AAO x 3, NAD, Afebrile, Pleasant, Obese, On 3 L to maintain 92% Head-NCAT, EOMI, PERRLA, Anicteric Sclera, No Posterior Pharyngeal Erythema Neck-Supple, No JVD, No Thyromegaly, No Masses, No LAD, No Bruits Lungs-Clear to Auscultation Bilaterally, No Rales, No Rhonchi, No Wheezing, No Crepitus Chest-No S4, +S1, +S2, No S3, No Murmurs, No Rubs, No Gallops, No Ectopy Abdomen-Soft, Bowel Sounds Present, Non Tender, Non Distended, No Hepatomegaly, No Splenomegaly, No Palpable Masses, No Rebound, No Rigidity, No Guarding Musculoskeletal-Full Range of Motion Bilaterally, No CVAT Extremities-No Cyanosis, No Clubbing, No Edema Nuero-Cranial Nerves II-XII grossly intact, Motor WNL, DTRs WNL, Strength WNL, Non Focal Psych-Normal Mood Results & Data Vital Signs (Past 12 Hours) Vital Signs Temp Pulse Pulse Resp BP Pulse Ox 01/14/19 11:17 36.7 C 75 20 118/68 92 01/14/19 08:00 79 01/14/19 07:29 37.1 C 79 18 134/75 90 01/14/19 07:11 76 18 90 01/14/19 04:29 36.6 C 70 18 139/72 96 01/14/19 01:58 84 16 95 01/14/19 01:41 83 Allergies metoprolol Adverse Reaction (Mild, Verified 01/13/19 18:40) Hypertension tetracycline Adverse Reaction (Mild, Verified 01/13/19 18:00) HEADACHE Height/Weight/Isolation Height 5 ft Weight 100.2 kg Chemistry 01/13/19 01/14/19 17:59 05:09 Sodium 135 L 133 L Potassium 4.6 4.4 Chloride 99 97 L Carbon Dioxide 32 34 H Anion Gap 5.0 2.0 L BUN 17 15 Creatinine 0.61 0.69 Glucose 107 H 157 H Urinalysis 01/13/19 18:22 Urine Color Yellow Urine Appearance Clear Urine pH 6.5 Ur Specific [place] 1.019 Urine Protein Trace H Urine Glucose (UA) Negative Urine Ketones Negative Urine Blood Negative Urine Nitrite Negative Urine Bilirubin Negative Microbiology 01/13/19 21:50 Blood Blood Culture - Pending 01/13/19 21:58 Blood Blood Culture - Pending 01/13/19 18:22 Urine,Clean Catch Urine Culture - Pending
[2019-01-14] MEDS: FUROSEMIDE 20 MG in SYRINGE 0 ML IV SCH ×2 (12:06→17:24)
[2019-01-14] MEDS: INSULIN ASPART 100 UNITS/ML 3 ML PEN SC SCH ×3 (12:06→21:21)
[2019-01-14] MEDS ORDERED: INSULIN GLARGINE SOLOSTAR 100 UNITS/ML 3 ML PEN SC ONE ×2 (12:45→20:45)
--- NOTE | 2019-01-14 15:48 | Pharmacy Report ---
Glycemic Control Consultation - Date of Service January 14, 2019 - Scope Scope: Glycemic Pharmacist consulted by Dr Valdez on 5-3 for glycemic control and to write orders per [facility] inpatient glycemic control protocol - Objective Weight: 100.2 kg Accuchecks BSG (last 24hrs): 01/13/19 01/14/19 01/14/19 17:59 05:09 11:23 Glucose 107 H 157 H POC Glucose 226 H Laboratory Data (last 24hrs): 01/13/19 01/14/19 17:59 05:09 Potassium 4.6 4.4 Carbon Dioxide 32 34 H Anion Gap 5.0 2.0 L Creatinine 0.61 0.69 Est Cr Clr Drug Dosing 103.6 91.6 HbA1c: Hemoglobin A1c 6.7 % (4.5-5.6) H 01/14/19 05:09 - Recent Pertinent Medications Outpatient Anti-diabetic Regimen: * none * A1C 6.7% Risk Factors for Insulin Resistance: * Steroids: methylpred 40 iv q 8hr * Diet: T2DM - Assessment & Plan Assessment & Plan: ASSESSMENT: * 63 year old admitted with fever/POZO. PMH significant for hld, hypothyroidism, CAD, HF. No hx of diabetes per H&P * Currently receiving steroids - anticipate steriod induced hyperglycemia, will utilize basal/bolus dosing PLAN FOR INPATIENT GLYCEMIC CONTROL: * Basal insulin * Lantus 15 x 1, then scale for tonight 0-20 units based upon BSG * Bolus insulin * NovoLog per scale ACHS or Q6hrs while NPO * Goal Range: Low 110 mg/dL - High 140 mg/dL * Correction Factor: 20 mg/dL/unit * Nutritional / Prandial insulin per carb ratio of 1 unit per 7 grams CHO consumed * Please note that the plan above was derived based on current level of insulin resistance and hospital stress. These recommendations are appropriate for inpati ent admission only. Plan of care upon discharge will need to be reassessed to avoid potential outpatient hypo/hyperglycemia. Thank you.
[2019-01-14] MEDS ORDERED: INSULIN GLARGINE SOLOSTAR 100 UNITS/ML 3 ML PEN SC SCH (21:00)
[2019-01-14] MEDS: LEVOFLOXACIN/D5W 750 MG/150 ML BAG IV SCH (21:23)
[2019-01-14] MEDS: SIMVASTATIN 20 MG TAB PO SCH (21:23)
[2019-01-15] MEDS: INSULIN ASPART 100 UNITS/ML 3 ML PEN SC SCH ×6 (01:05→21:17)
[2019-01-15] MEDS: LEVALBUTEROL 1.25MG/0.5ML NEB INH SCH ×3 (02:05→13:56)
[2019-01-15] MEDS: IPRATROPIUM BROMIDE NEB SOLN 0.02% 2.5 ML VIAL INH SCH ×3 (02:05→13:56)
[2019-01-15] MEDS: methylPREDNISolone 40 MG in SYRINGE 0 ML IV SCH ×3 (04:30→20:05)
[2019-01-15] MEDS: HEPARIN SOD 5,000 UNIT/0.5 ML VIAL SQ SCH ×3 (07:12→21:20)
[2019-01-15] MEDS: LEVOTHYROXINE SODIUM 125 MCG TABLET PO SCH (07:12)
[2019-01-15] MEDS: LORATADINE 10 MG TAB PO SCH (08:22)
[2019-01-15] MEDS: CARVEDILOL 3.125 MG TAB PO SCH ×2 (08:22→21:16)
[2019-01-15] MEDS: ASPIRIN 81 MG ECTAB PO SCH (08:23)
[2019-01-15] MEDS: FUROSEMIDE 20 MG in SYRINGE 0 ML IV SCH ×2 (08:23→16:07)
[2019-01-15] MEDS: AMLODIPINE BESYLATE 5 MG TAB PO SCH (08:23)
[2019-01-15] MEDS: FLUTICASONE PROPIONATE NA SPR 16 GM BTL SCH (08:23)
[2019-01-15] MEDS: LISINOPRIL 40 MG TAB PO SCH (08:23)
[2019-01-15] MEDS: INSULIN GLARGINE SOLOSTAR 100 UNITS/ML 3 ML PEN SC SCH ×2 (08:23→21:18)
[2019-01-15 08:54] LABS: Hematocrit (blood only) 46.1 % (37-47); Hemoglobin 14.4 g/dL (12.0-16.0); Mean Corpuscular Hgb Conc 31.2 g/dL (32-36); Mean Corpuscular Volume 98.5 fL (80-100); Mean Platelet Volume 10.1 fL (7.4-10.4); Platelet Count 209 K/uL (130-400); RDW Coefficient of Variation 15.3 % (11.5-14.5); RDW Standard Deviation 54.8 fL (36.4-46.3); Red Blood Count 4.68 M/uL (4.2-5.4); White Blood Count 11.74 K/uL (4.8-10.8)
[2019-01-15 09:21] LABS: BUN Creatinine Ratio 35.7 (10-20); Calcium 9.3 mg/dl (8.5-10.1); Creatinine Clr Calc Pharmacy 90.6 ml/min; Est GFR (African American) 108.9; Potassium 4.3 mmol/L (3.5-5.1)
--- NOTE | 2019-01-15 11:00 | Pharmacy Report ---
Pharmacy Glycemic Short Note 2 - Date of Service January 15, 2019 - Glycemic Short BSG Results (Last 24 hours): 01/14/19 01/14/19 01/14/19 11:23 16:45 20:02 Glucose POC Glucose 226 H 159 H 254 H 01/15/19 01/15/19 01/15/19 00:00 04:21 07:36 Glucose POC Glucose 137 H 159 H 134 H 01/15/19 08:31 Glucose 202 H POC Glucose OUTPATIENT ANTIDIABETIC REGIMEN: * N/A- no previous diagnosis ASSESSMENT: * 63yo newly diagnosed T2DM per A1c. * Pt with significant, sustained, hyperglycemia secondary to RTC high dose steroids with Solumedrol 40mg IV Q8hrs * Typically patients require ~0.9units/kg/day (~ 90-100 units/day for patient) for hyperglycemia secondary to high dose steroids. * Will hold outpatient oral antidiabetic medications and start weight based/stress of 3 SQ basal bolus insulin regimen * Will titrate dosing based on BSG trends and add BSG scale to Lantus to prevent hypo/hyperglycemia * Will decrease steroids with each step down in steroid dosing to prevent hypogl ycemia PLAN FOR INPATIENT GLYCEMIC CONTROL: * Hold outpatient oral diabetes medications * Basal insulin * Lantus 17-25 units SQ BID based on BSG/degree of hyperglycemia * Bolus insulin * NovoLog per scale ACHS or Q6hrs while NPO * Goal Range: Low 110 mg/dL - High 140 mg/dL * Correction Factor: 15 mg/dL/unit * Nutritional / Prandial insulin per carb ratio of 1 unit per 5 grams CHO consumed PLAN FOR DISCHARGE: * HbA1c - 6.7% on 01/14/19 * HbA1c of 5.7-6.4% indicates "pre-diabetes" --> ADA recommendation is to insti tute diabetes and atherosclerosis prevention * Recommend starting with first line therapy per ADA of metformin + lifestyle changes (weight reduction + physical activity) * Recommend starting Metformin XR 500mg PO daily with evening meal. Continue to titrate metformin dosing upwards as recommended. Dosage increases should be made in increments of 500 mg weekly, up to 2,000 mg/day PO, given in divided doses. Doses above 2000 mg/day may be better tolerated if divided and given 3 times per day with meals. Max: 2,550 mg/day PO, in divided doses
--- NOTE | 2019-01-15 12:35 | Hospitalist Progress Note ---
Date of Service January 15, 2019 Assessment & Plan (1) Hypoxia: (2) Pneumonia: (3) Obesity (BMI 30.0-34.9): (4) Chronic diastolic (congestive) heart failure: (5) Pre-diabetes: (6) CAD (coronary artery disease): (7) Carotid stenosis: (8) HLD (hyperlipidemia): (9) Hypothyroid: Continue Abx, Nebs and steroids. 2 step today, Now on 1 liter, DC 1-2 days on O2 if qualifies, Continue O2 and titrate as tolerated, Not on home O2, Spirometry, Ambulate, Another Lasix Dose ROS-No Headache, No Visual Changes, No Nausea, No Vomiting, No Fever, No Chills, No Neck Pain or Stiffness, No Chest Pain, No Palpitations, No SOB, No PLASCENCIA, No Cough, No Sputum, No Wheezing, No Abdominal Pain, No Diarrhea, No Hematemesis, No Hemoptysis, No Unexpected Weight Loss, No Flank pain, No Melena, No Hematochezia, No Frequency, No Urgency, No Burning, No Hematuria, No Rashes, No Diaphoresis. Appetite is Normal, Feels fine Physical Exam Gen-AAO x 3, NAD, Afebrile, Pleasant, Obese, On 1 L to maintain 90% Head-NCAT, EOMI, PERRLA, Anicteric Sclera, No Posterior Pharyngeal Erythema Neck-Supple, No JVD, No Thyromegaly, No Masses, No LAD, No Bruits Lungs-Clear to Auscultation Bilaterally, No Rales, No Rhonchi, No Wheezing, No Crepitus Chest-No S4, +S1, +S2, No S3, No Murmurs, No Rubs, No Gallops, No Ectopy Abdomen-Soft, Bowel Sounds Present, Non Tender, Non Distended, No Hepatomegaly, No Splenomegaly, No Palpable Masses, No Rebound, No Rigidity, No Guarding Musculoskeletal-Full Range of Motion Bilaterally, No CVAT Extremities-No Cyanosis, No Clubbing, No Edema Nuero-Cranial Nerves II-XII grossly intact, Motor WNL, DTRs WNL, Strength WNL, Non Focal Psych-Normal Mood Results & Data Vital Signs (Past 12 Hours) Vital Signs Temp Pulse Pulse Resp BP Pulse Ox 01/15/19 12:00 36.4 C L 71 18 134/80 90 05/04/19 08:00 62 01/15/19 07:39 68 18 96 01/15/19 07:04 36.7 C 60 18 118/67 93 01/15/19 04:00 36.7 C 66 20 136/82 92 01/15/19 02:05 70 18 90 01/15/19 01:15 68 Current Diagnoses Hypothyroidism, unspecified (01/13/19) Obesity, unspecified (01/13/19) Hyperlipidemia, unspecified (01/13/19) Atherosclerotic heart disease of [place] coronary artery without angina pectoris (01/13/19) Chronic diastolic (congestive) heart failure (01/13/19) Occlusion and stenosis of unspecified carotid artery (01/13/19) Pneumonia, unspecified organism (01/13/19) Hypoxemia (01/13/19) Prediabetes (01/13/19) Allergies metoprolol Adverse Reaction (Mild, Verified 01/13/19 18:40) Hypertension tetracycline Adverse Reaction (Mild, Verified 01/13/19 18:00) HEADACHE Height/Weight/Isolation Height 5 ft Weight 99.4 kg Chemistry 01/13/19 01/14/19 01/15/19 17:59 05:09 08:31 Sodium 135 L 133 L 138 Potassium 4.6 4.4 4.3 Chloride 99 97 L 99 Carbon Dioxide 32 34 H 31 Anion Gap 5.0 2.0 L 8.0 BUN 17 15 25 H D Creatinine 0.61 0.69 0.69 Glucose 107 H 157 H 202 H Urinalysis 01/13/19 18:22 Urine Color Yellow Urine Appearance Clear Urine pH 6.5 Ur Specific [place] 1.019 Urine Protein Trace H Urine Glucose (UA) Negative Urine Ketones Negative Urine Blood Negative Urine Nitrite Negative Urine Bilirubin Negative Microbiology 01/13/19 18:22 Urine,Clean Catch Urine Culture - Final Three types of organisms present, all low counts probable skin dunia. No further identifications or sensitivities to follow. 01/13/19 21:58 Blood Blood Culture - Preliminary No growth to date. 01/13/19 21:50 Blood Blood Culture - Preliminary No growth to date.
[2019-01-15] MEDS ORDERED: FUROSEMIDE 40 MG in SYRINGE 0 ML IV ONE (13:00)
[2019-01-15] MEDS: ACETAMINOPHEN 325 MG TAB PO PRN ×2 (16:07→21:24)
[2019-01-15] MEDS ORDERED: LEVALBUTEROL 1.25MG/0.5ML NEB INH PRN (18:14)
[2019-01-15] MEDS ORDERED: IPRATROPIUM BROMIDE NEB SOLN 0.02% 2.5 ML VIAL INH PRN (18:14)
[2019-01-15] MEDS: SIMVASTATIN 20 MG TAB PO SCH (21:16)
[2019-01-15] MEDS: IPRATROPIUM BROMIDE/ALBUTEROL respimat INH INH SCH (21:16)
[2019-01-15] MEDS: LEVOFLOXACIN/D5W 750 MG/150 ML BAG IV SCH (21:20)
[2019-01-16] MEDS: methylPREDNISolone 40 MG in SYRINGE 0 ML IV SCH ×2 (03:24→12:22)
[2019-01-16] MEDS: HEPARIN SOD 5,000 UNIT/0.5 ML VIAL SQ SCH ×2 (05:58→14:10)
[2019-01-16] MEDS: LEVOTHYROXINE SODIUM 125 MCG TABLET PO SCH (05:59)
[2019-01-16] MEDS: IPRATROPIUM BROMIDE/ALBUTEROL respimat INH INH SCH ×2 (08:10→12:22)
[2019-01-16] MEDS: LORATADINE 10 MG TAB PO SCH (08:10)
[2019-01-16] MEDS: INSULIN GLARGINE SOLOSTAR 100 UNITS/ML 3 ML PEN SC SCH (08:11)
[2019-01-16] MEDS: FLUTICASONE PROPIONATE NA SPR 16 GM BTL SCH (08:11)
[2019-01-16] MEDS: LISINOPRIL 40 MG TAB PO SCH (08:11)
[2019-01-16] MEDS: ASPIRIN 81 MG ECTAB PO SCH (08:11)
[2019-01-16] MEDS: AMLODIPINE BESYLATE 5 MG TAB PO SCH (08:11)
[2019-01-16] MEDS: FUROSEMIDE 20 MG in SYRINGE 0 ML IV SCH (08:11)
[2019-01-16] MEDS: CARVEDILOL 3.125 MG TAB PO SCH (08:11)
[2019-01-16] MEDS: INSULIN ASPART 100 UNITS/ML 3 ML PEN SC SCH ×2 (08:12→12:22)
[2019-01-16 08:42] LABS: Hematocrit (blood only) 48.2 % (37-47); Hemoglobin 14.7 g/dL (12.0-16.0); Mean Corpuscular Hgb Conc 30.5 g/dL (32-36); Mean Corpuscular Volume 98.4 fL (80-100); Mean Platelet Volume 10.5 fL (7.4-10.4); Platelet Count 204 K/uL (130-400); RDW Coefficient of Variation 15.2 % (11.5-14.5); RDW Standard Deviation 55.4 fL (36.4-46.3); White Blood Count 11.06 K/uL (4.8-10.8)
--- NOTE | 2019-01-16 09:11 | Pharmacy Report ---
Pharmacy Glycemic Short Note 2 - Date of Service January 16, 2019 - Glycemic Short BSG Results (Last 24 hours): 01/15/19 01/15/19 01/15/19 08:31 11:34 16:38 Glucose 202 H POC Glucose 179 H 109 H 01/15/19 01/16/19 01/16/19 20:32 01:38 07:41 Glucose POC Glucose 106 H 122 H 147 H OUTPATIENT ANTIDIABETIC REGIMEN: * N/A- no previous diagnosis ASSESSMENT: * 63yo newly diagnosed T2DM per A1c. * Pt with significant, sustained, hyperglycemia secondary to RTC high dose steroids with Solumedrol 40mg IV Q8hrs * Typically patients require ~0.9units/kg/day (~ 90-100 units/day for patient) for hyperglycemia secondary to high dose steroids. * Started weight based/stress of 3 SQ basal bolus insulin regimen yesterday * Pt received 77 units of insulin over the past 24hrs * BSGs ranging 106-179mg/dl. No changes needed to regimen today; however, will need to decrease insulin regimen if Solumedrol tapered * Will continue to titrate dosing based on BSG trends and add BSG scale to Lantus to prevent hypo/hyperglycemia * Will decrease steroids with each step down in steroid dosing to prevent hypoglycemia PLAN FOR INPATIENT GLYCEMIC CONTROL: No changes needed at this time. Lantus will need decreased if/when Solumedrol tapered * Basal insulin * Lantus 17-25 units SQ BID based on BSG/degree of hyperglycemia * Bolus insulin * NovoLog per scale ACHS or Q6hrs while NPO * Goal Range: Low 110 mg/dL - High 140 mg/dL * Correction Factor: 15 mg/dL/unit * Nutritional / Prandial insulin per carb ratio of 1 unit per 5 grams CHO consumed PLAN FOR DISCHARGE: * HbA1c - 6.7% on 01/14/19 * HbA1c of 5.7-6.4% indicates "pre-diabetes" --> ADA recommendation is to institute diabetes and atherosclerosis prevention * Recommend starting with first line therapy per ADA of metformin + lifestyle changes (weight reduction + physical activity) * Recommend starting Metformin XR 500mg PO daily with evening meal. Continue to titrate metformin dosing upwards as recommended. Dosage increases should be made in increments of 500 mg weekly, up to 2,000 mg/day PO, given in divided doses. Doses above 2000 mg/day may be better tolerated if divided and given 3 times per day with meals. Max: 2,550 mg/day PO, in divided doses
[2019-01-16 09:15] LABS: BUN Creatinine Ratio 44.2 (10-20); Calcium 9.3 mg/dl (8.5-10.1); Creatinine Clr Calc Pharmacy 102.9 ml/min; Est GFR (African American) 113.4; Est GFR (Non-African American) 97.8; Potassium 4.2 mmol/L (3.5-5.1)
--- NOTE | 2019-01-16 12:35 | Discharge Summary ---
Date of Service January 16, 2019 Admission HPI Per Admitting Provider 63-year-old female with past medical history significant for hyperlipidemia, hypothyroidism, prediabetes, coronary artery disease, chronic diastolic heart failure, carotid stenosis, obesity and tobacco use disorder who went to convenient care visit with severe headache and there in the convenient care she was found to have temperature of 101 and she was sent here. In the Emergency Room, her oxygen saturation was 82% on room air and she is saturating okay on 3 liters. She states the headaches are better now. She states she then felt short of breath. Denies any cough. She was having some sinus drainage, but that has improved. No earache. No blurred vision. No sore throat. No difficulty swallowing. Appetite is okay. No chest pain. No nausea. No abdominal pain. Normal bowel and bladder movements. No hematuria. No burning micturition. No melena or hematochezia. No rash. Currently feeling better. She lives alone. She walks without any help. Daughter is in the room. Daughter thinks she snores in the night when asked about it. Admission Exam Per Admitting Provider GENERAL: The patient is obese, currently not in acute distress. VITAL SIGNS: Temperature 36.7, pulse 77, respiratory rate 20, blood pressure 140/73 and oxygen 91% on 3 liters. HEENT: No pallor. No icterus. Pupils are equal, round and reactive to light. NECK: No JVD. No neck masses. No carotid bruits. CARDIOVASCULAR: S1, S2 heard. Regular rate and rhythm. No murmur. No gallop. RESPIRATORY: Normal AP diameter. No accessory muscle use. Diminished bilateral breath sounds. Occasional rhonchi. No wheezing. ABDOMEN: Soft. Bowel sounds present. Nontender. No distention. CENTRAL NERVOUS SYSTEM: Cranial nerves II through XII grossly intact. Nonfocal. EXTREMITIES: Trace pedal edema. No erythema seen. Principal Diagnosis Hypoxic Resp Failure CAD HLD Pneumonia Chronic Diastolic CHF Obesity Hypothyroid Discharge Data Allergies Allergy/AdvReac Type Severity Reaction Status Date / Time metoprolol AdvReac Mild Hypertensio Verified 01/13/19 18:40 n tetracycline AdvReac Mild HEADACHE Verified 01/13/19 18:00 Consultations 01/13/19 19:48 ED Decision to Admit Stat 01/13/19 21:41 Consult Case Management - Discharge Planning Routine Ordered Studies 01/13/19 18:24 CT angio chest PE protocol Stat 01/13/19 18:28 CT head/brain wo con Stat Hospital Course (1) Hypoxia: (2) Pneumonia: (3) Obesity (BMI 30.0-34.9): (4) Chronic diastolic (congestive) heart failure: (5) Pre-diabetes: (6) CAD (coronary artery disease): (7) Carotid stenosis: (8) HLD (hyperlipidemia): (9) Hypothyroid: Continue Abx, Nebs and steroids. 2 step today, Now on 1 liter, DC 1-2 days on O2 if qualifies, Continue O2 and titrate as tolerated, Not on home O2, Spirometry, Ambulate, Another Lasix Dose ROS-No Headache, No Visual Changes, No Nausea, No Vomiting, No Fever, No Chills, No Neck Pain or Stiffness, No Chest Pain, No Palpitations, No SOB, No PLASCENCIA, No Cough, No Sputum, No Wheezing, No Abdominal Pain, No Diarrhea, No Hematemesis, No Hemoptysis, No Unexpected Weight Loss, No Flank pain, No Melena, No Hematochezia, No Frequency, No Urgency, No Burning, No Hematuria, No Rashes, No Diaphoresis. Appetite is Normal, Feels fine Physical Exam Gen-AAO x 3, NAD, Afebrile, Pleasant, Obese, On 1 L to maintain 90% Head-NCAT, EOMI, PERRLA, Anicteric Sclera, No Posterior Pharyngeal Erythema Neck-Supple, No JVD, No Thyromegaly, No Masses, No LAD, No Bruits Lungs-Clear to Auscultation Bilaterally, No Rales, No Rhonchi, No Wheezing, No Crepitus Chest-No S4, +S1, +S2, No S3, No Murmurs, No Rubs, No Gallops, No Ectopy Abdomen-Soft, Bowel Sounds Present, Non Tender, Non Distended, No Hepatomegaly, No Splenomegaly, No Palpable Masses, No Rebound, No Rigidity, No Guarding Musculoskeletal-Full Range of Motion Bilaterally, No CVAT Extremities-No Cyanosis, No Clubbing, No Edema Nuero-Cranial Nerves II-XII grossly intact, Motor WNL, DTRs WNL, Strength WNL, Non Focal Psych-Normal Mood Total Time Total Time Spent Total Time Spent (In Minutes): 45 min Discharge Plan Discharge Items Patient Disposition: Home - Self-Care Reason For Visit: HEADACHE,FEVER Discharge Diagnosis: Hypoxic Resp Failure CAD HLD Pneumonia Chronic Diastolic CHF Obesity Hypothyroid Discharge Goals: Improve function Activity: Resume your previous activity Lifting: Gradually increase as tolerated Bathing: No limitations Sexual Activity: When tolerated Exercise/Sports: Gradually increase as tolerated Driving/Machine Use: No limitations Weightbearing: Left weightbearing and Right weightbearing Non-emergency contact: Primary Care Provider Call non-emergency contact if: you have any medication questions and your symptoms worsen Follow-up/Referrals: Jesse Hannon MD [Primary Care Provider] - 01/18/19 11:25 am Diet: Carb Consistent or DM2 and Heart Healthy Addtl Provider Instructions: f/u Pneumonia to full resolution Prescriptions: New furosemide [Lasix] 40 mg tablet 40 mg PO QAM Qty: 30 RF: 0 levofloxacin [Levaquin] 500 mg tablet 500 mg PO DAILY 7 Days Qty: 7 RF: 0 Continued amlodipine 5 mg tablet 5 mg PO QAM RF: 0 aspirin 81 mg Tablet,Delayed Release (Dr/Ec) 81 mg PO QAM RF: 0 acetaminophen [Tylenol Extra Strength] 500 mg Tablet 1,500 mg PO Q4H PRN (Reason: Pain) RF: 0 carvedilol 3.125 mg tablet 3.125 mg PO BID RF: 0 simvastatin 20 mg tablet 20 mg PO HS RF: 0 levothyroxine 125 mcg tablet 125 mcg PO QAM RF: 0 lisinopril 40 mg tablet 40 mg PO QAM RF: 0 fluticasone propionate [Flonase Allergy Relief] 50 mcg/actuation [place],Suspension 2 spray INTRANASAL QAM RF: 0 loratadine 10 mg Tablet 10 mg PO QAM RF: 0 Combivent Respimat 20-100 mcg/actuation Mist 1 puff INHALATION Q4H PRN (Reason: Wheezing) RF: 0 Discontinued furosemide 20 mg tablet 20 mg PO HS RF: 0 Stand-Alone Forms: My [employer], Work/School Release (Inpt) [employer]/Other Patient Handouts: Prediabetes, Diabetes Type 2 Coping, Diabetes Meal Planning, Diabetes Type 2 Discharge Orders: Discharge Order (Routine); Ordered 01/16/19 Ordered By: Rafael Valdez Admission Data Admit Date/Time: 05/02/19 20:29 Attending Provider: Rafael Valdez Admit Provider: Catrachito Harmon Primary Care Provider: Jesse Hannon Other Providers: Catrachito Harmon Service: Telemetry Medical
--- NOTE | 2019-01-16 12:52 | Discharge Summary ---
Date of Service January 16, 2019 Admission HPI Per Admitting Provider 63-year-old female with past medical history significant for hyperlipidemia, hypothyroidism, prediabetes, coronary artery disease, chronic diastolic heart failure, carotid stenosis, obesity and tobacco use disorder who went to convenient care visit with severe headache and there in the convenient care she was found to have temperature of 101 and she was sent here. In the Emergency Room, her oxygen saturation was 82% on room air and she is saturating okay on 3 liters. She states the headaches are better now. She states she then felt short of breath. Denies any cough. She was having some sinus drainage, but that has improved. No earache. No blurred vision. No sore throat. No difficulty swallowing. Appetite is okay. No chest pain. No nausea. No abdominal pain. Normal bowel and bladder movements. No hematuria. No burning micturition. No melena or hematochezia. No rash. Currently feeling better. She lives alone. She walks without any help. Daughter is in the room. Daughter thinks she snores in the night when asked about it. Principal Diagnosis (1) Hypoxia: (2) Pneumonia: (3) Obesity (BMI 30.0-34.9): (4) Chronic diastolic (congestive) heart failure: (5) Pre-diabetes: (6) CAD (coronary artery disease): (7) Carotid stenosis: (8) HLD (hyperlipidemia): (9) Hypothyroid: Discharge Exam ROS-No Headache, No Visual Changes, No Nausea, No Vomiting, No Fever, No Chills, No Neck Pain or Stiffness, No Chest Pain, No Palpitations, No SOB, No PLASCENCIA, No Cough, No Sputum, No Wheezing, No Abdominal Pain, No Diarrhea, No Hematemesis, No Hemoptysis, No Unexpected Weight Loss, No Flank pain, No Melena, No Hematochezia, No Frequency, No Urgency, No Burning, No Hematuria, No Rashes, No Diaphoresis. Appetite is Normal Physical Exam Gen-AAO x 3, NAD, Afebrile Head-NCAT, EOMI, PERRLA, Anicteric Sclera, No Posterior Pharyngeal Erythema Neck-Supple, No JVD, No Thyromegaly, No Masses, No LAD, No Bruits Lungs-Clear to Auscultation Bilaterally, No Rales, No Rhonchi, No Wheezing, No Crepitus Chest-No S4, +S1, +S2, No S3, No Murmurs, No Rubs, No Gallops, No Ectopy Abdomen-Soft, Bowel Sounds Present, Non Tender, Non Distended, No Hepatomegaly, No Splenomegaly, No Palpable Masses, No Rebound, No Rigidity, No Guarding Musculoskeletal-Full Range of Motion Bilaterally, No CVAT Extremities-No Cyanosis, No Clubbing, No Edema Nuero-Cranial Nerves II-XII grossly intact, Motor WNL, DTRs WNL, Strength WNL, Non Focal Psych-Normal Mood Discharge Data Allergies Allergy/AdvReac Type Severity Reaction Status Date / Time metoprolol AdvReac Mild Hypertensio Verified 01/13/19 18:40 n tetracycline AdvReac Mild HEADACHE Verified 01/13/19 18:00 Consultations 01/13/19 19:48 ED Decision to Admit Stat 01/13/19 21:41 Consult Case Management - Discharge Planning Routine Ordered Studies 01/13/19 18:24 CT angio chest PE protocol Stat 01/13/19 18:28 CT head/brain wo con Stat Current Diagnoses Hypothyroidism, unspecified (01/13/19) Obesity, unspecified (01/13/19) Hyperlipidemia, unspecified (01/13/19) Atherosclerotic heart disease of [place] coronary artery without angina pectoris (01/13/19) Chronic diastolic (congestive) heart failure (01/13/19) Occlusion and stenosis of unspecified carotid artery (01/13/19) Pneumonia, unspecified organism (01/13/19) Hypoxemia (01/13/19) Prediabetes (01/13/19) Allergies metoprolol Adverse Reaction (Mild, Verified 01/13/19 18:40) Hypertension tetracycline Adverse Reaction (Mild, Verified 01/13/19 18:00) HEADACHE Height/Weight/Isolation Height 5 ft Weight 100 kg Chemistry 01/15/19 01/16/19 08:31 08:13 Sodium 138 137 Potassium 4.3 4.2 Chloride 99 100 Carbon Dioxide 31 32 Anion Gap 8.0 5.0 BUN 25 H D 27 H Creatinine 0.69 0.61 Glucose 202 H 130 H Microbiology 01/13/19 18:22 Urine,Clean Catch Urine Culture - Final Three types of organisms present, all low counts p robable skin dunia. No further identifications or sensitivities to follow. 01/13/19 21:58 Blood Blood Culture - Preliminary No growth to date. 01/13/19 21:50 Blood Blood Culture - Preliminary No growth to date. Hospital Course (1) Pneumonia: Assessment & Plan (1) Hypoxia: (2) Pneumonia: (3) Obesity (BMI 30.0-34.9): (4) Chronic diastolic (congestive) heart failure: (5) Pre-diabetes: (6) CAD (coronary artery disease): (7) Carotid stenosis: (8) HLD (hyperlipidemia): (9) Hypothyroid: DC home on Levaquin x 7 days, Lasix 40 mg QQAM, Now off O2. RTW 01/18, Has f/u appt c Dr Hannon 01/18 at 1125 ROS-No Headache, No Visual Changes, No Nausea, No Vomiting, No Fever, No Chills, No Neck Pain or Stiffness, No Chest Pain, No Palpitations, No SOB, No PLASCENCIA, No Cough, No Sputum, No Wheezing, No Abdominal Pain, No Diarrhea, No Hematemesis, No Hemoptysis, No Unexpected Weight Loss, No Flank pain, No Melena, No Hematochezia, No Frequency, No Urgency, No Burning, No Hematuria, No Rashes, No Diaphoresis. Appetite is Normal, Feels fine Physical Exam Gen-AAO x 3, NAD, Afebrile, Pleasant, Obese, Off O2 Head-NCAT, EOMI, PERRLA, Anicteric Sclera, No Posterior Pharyngeal Erythema Neck-Supple, No JVD, No Thyromegaly, No Masses, No LAD, No Bruits Lungs-Clear to Auscultation Bilaterally, No Rales, No Rhonchi, No Wheezing, No Crepitus Chest-No S4, +S1, +S2, No S3, No Murmurs, No Rubs, No Gallops, No Ectopy Abdomen-Soft, Bowel Sounds Present, Non Tender, Non Distended, No Hepatomegaly, No Splenomegaly, No Palpable Masses, No Rebound, No Rigidity, No Guarding Musculoskeletal-Full Range of Motion Bilaterally, No CVAT Extremities-No Cyanosis, No Clubbing, No Edema Nuero-Cranial Nerves II-XII grossly intact, Motor WNL, DTRs WNL, Strength WNL, Non Focal Psych-Normal Mood Total Time Total Time Spent Total Time Spent (In Minutes): 45 min Total Time Includes: Examination of the Patient, Discharge Planning, Medication Reconciliation and Communication With Other Providers Discharge Plan Discharge Items Patient Disposition: Home - Self-Care Reason For Visit: HEADACHE,FEVER Discharge Diagnosis: Hypoxic Resp Failure CAD HLD Pneumonia Chronic Diastolic CHF Obesity Hypothyroid Discharge Goals: Improve function Activity: Resume your previous activity Lifting: Gradually increase as tolerated Bathing: No limitations Sexual Activity: When tolerated Exercise/Sports: Gradually increase as tolerated Driving/Machine Use: No limitations Weightbearing: Left weightbearing and Right weightbearing Non-emergency contact: Primary Care Provider Call non-emergency contact if: you have any medication questions and your symptoms worsen Follow-up/Referrals: Jesse Hannon MD [Primary Care Provider] - 01/18/19 11:25 am Diet: Carb Consistent or DM2 and Heart Healthy Addtl Provider Instructions: f/u Pneumonia to full resolution Prescriptions: New furosemide [Lasix] 40 mg tablet 40 mg PO QAM Qty: 30 RF: 0 levofloxacin [Levaquin] 500 mg tablet 500 mg PO DAILY 7 Days Qty: 7 RF: 0 Continued amlodipine 5 mg tablet 5 mg PO QAM RF: 0 aspirin 81 mg Tablet,Delayed Release (Dr/Ec) 81 mg PO QAM RF: 0 acetaminophen [Tylenol Extra Strength] 500 mg Tablet 1,500 mg PO Q4H PRN (Reason: Pain) RF: 0 carvedilol 3.125 mg tablet 3.125 mg PO BID RF: 0 simvastatin 20 mg tablet 20 mg PO HS RF: 0 levothyroxine 125 mcg tablet 125 mcg PO QAM RF: 0 lisinopril 40 mg tablet 40 mg PO QAM RF: 0 fluticasone propionate [Flonase Allergy Relief] 50 mcg/actuation [place],Suspension 2 spray INTRANASAL QAM RF: 0 loratadine 10 mg Tablet 10 mg PO QAM RF: 0 Combivent Respimat 20-100 mcg/actuation Mist 1 puff INHALATION Q4H PRN (Reason: Wheezing) RF: 0 Discontinued furosemide 20 mg tablet 20 mg PO HS RF: 0 Stand-Alone Forms: My [employer], Work/School Release (Inpt) [employer]/Other Patient Handouts: Prediabetes, Diabetes Type 2 Coping, Diabetes Meal Planning, Diabetes Type 2 Discharge Orders: Discharge Order (Routine); Ordered 01/16/19 Ordered By: Rafael Valdez Admission Data Admit Date/Time: 01/13/19 20:29 Attending Provider: Rafael Valdez Admit Provider: Catrachito Harmon Primary Care Provider: Jesse Hannon Other Providers: Catrachito Harmon Service: Telemetry Medical
[2019-01-16] MEDS ORDERED: FUROSEMIDE 60 MG in SYRINGE 0 ML IV ONE (13:00)
== END 2019-01-16 15:50 | disposition home or self-care (01) | DRG 190 ==
LOC: ED 17:05 → 2W 20:29

== ENCOUNTER 2021-03-18 14:33 | Inpatient (IN) ==
[2021-03-18] MEDS ORDERED: ALBUT/IPRATROP 3MG/0.5MG NEB 3 ML VIAL NEB STA ×2 (15:12→16:27)
[2021-03-18 15:20] LABS: Basophils # (auto) 0.02 K/uL (0-0.2); Basophils % (auto) 0.2 %; Eosinophils # (auto) 0.09 K/uL (0-0.5); Eosinophils % (auto) 0.9 %; Hematocrit (blood only) 48.5 % (37-47); Hemoglobin 14.8 g/dL (12.0-16.0); Immature Granulocytes # (auto) 0.03 K/uL (0.00-0.02); Immature Granulocytes % (auto) 0.3 %; Lymphocytes # (auto) 0.78 K/uL (1.2-3.4); Lymphocytes % (auto) 7.7 %; Mean Corpuscular Hemoglobin 31.8 pg (25-34); Mean Corpuscular Hgb Conc 30.5 g/dL (32-36); Mean Corpuscular Volume 104.1 fL (80-100); Mean Platelet Volume 10.4 fL (7.4-10.4); Monocytes # (auto) 0.71 K/uL (0.11-0.59); Neutrophils # (auto) 8.54 K/uL (1.4-6.5); Neutrophils % (auto) 83.9 %; Platelet Count 227 K/uL (130-400); RDW Coefficient of Variation 15.5 % (11.5-14.5); RDW Standard Deviation 59.3 fL (36.4-46.3); Red Blood Count 4.66 M/uL (4.2-5.4); White Blood Count 10.17 K/uL (4.8-10.8)
[2021-03-18 15:29] LABS: INR 1.1 (0.9-1.1); Partial Thromboplastin Time 27.5 Seconds (21.0-31.0); Prothrombin Time 10.9 Seconds (9.0-12.0)
[2021-03-18 15:32] LABS: Base Excess VBG 7.2 mEq/L; Oxygen Saturation VBG 91.8 %; pH VBG 7.37 (7.36-7.41)
[2021-03-18 15:35] LABS: Alanine Aminotransferase 41 U/L (12-78); Albumin Level 3.7 gm/dl (3.4-5.0); Aspartate Aminotransferase 14 U/L (15-37); BUN Creatinine Ratio 17.3 (10-20); Blood Urea Nitrogen 10 mg/dl (7-18); Calcium 8.9 mg/dl (8.5-10.1); Carbon Dioxide 36 mmol/L (21-32); Chloride 97 mmol/L (98-107); Creatinine Clr Calc Pharmacy 101.1 ml/min; Est GFR (African American) 111.6 ml/min; Est GFR (Non-African American) 96.3 ml/min; Glucose 139 mg/dl (70-99); Magnesium 1.6 mg/dl (1.8-2.4); Sodium 135 mmol/L (136-145)
[2021-03-18 15:41] LABS: Albumin Globulin Ratio 0.9 (0.9-2); Alkaline Phosphatase 84 U/L (45-117); Bilirubin,Total 0.6 mg/dl (0.2-1); Globulin 4.1 gm/dl (2.5-4.0); NT Pro B Type Natriuretic Pept 780 pg/ml (0-900); Total Protein 7.8 gm/dl (6.4-8.2); Troponin I < 0.015 ng/ml (0-0.045)
--- NOTE | 2021-03-18 15:47 | Emergency Department Note ---
Impression & Plan COPD exacerbation, Hypoxia ED Provider Note -NAME: NATO PETTIT AGE: 66 SEX: F : 1955 ARRIVES VIA: Walk-In INFORMANT: Patient, ED PROVIDER(S): Dillon Lopez DO CHIEF COMPLAINT: Shortness of breath HPI: The patient is a 66-year-old female who presented to the emergency department for an evaluation of shortness of breath. The patient describes significant shortness of breath that she has been experiencing over the course the last week. She denies having any nausea or vomiting. She has had weight gain as well as lower extremity swelling. She has a history of tobacco use in the past but has not used tobacco in 3 years. She does have a history of COPD. She was seen by her recruiting and selection consultant a few weeks ago for similar complaints. She continues to have worsening symptoms. She presented to the emergency department today because she was unable to ambulate without having severe shortness of breath. The patient has been compliant with all of her usual outpatient medications. The patient states her symptoms also worsens when she lays flat. ROS: See above HPI for pertinent positives & negatives. A total of 10 systems reviewed and were otherwise negative. PAST MEDICAL HISTORY: See Below PAST SURGICAL HISTORY: See Below FAMILY HISTORY: See Below SOCIAL HISTORY: See Below HOME MEDICATIONS: See Below ALLERGIES: See Below VITALS: See Below PHYSICAL EXAMINATION: GENERAL: The patient is awake and alert. She is somewhat anxious appearing. EYES: The conjunctivae are clear. The pupils are round and reactive. EARS, NOSE, MOUTH AND THROAT: The nose is without any evidence of any deformity. Mucous membranes are moist. Tongue is midline. NECK: The neck is nontender and supple. RESPIRATORY: Diminished breath sounds are noted throughout. Significant conversational dyspnea was noted. Rales were noted at both bases. CARDIOVASCULAR: Regular rate and rhythm noted there no murmurs rubs or gallops normal S1 normal S2. GASTROINTESTINAL: The abdomen is soft. Abdomen is nontender. MUSCULOSKELETAL/EXTREMITIES: There is no evidence of gross deformity full range of motion is noted in the hips and shoulders. SKIN: Skin was warm and dry. Pedal edema was noted bilaterally. NEUROLOGIC: Patient is awake alert and oriented x3. MEDICAL DECISION MAKING: The patient is a 66-year-old female who presented to the emergency department for an evaluation of shortness of breath. The patient also complained of lower extremity swelling. The patient was initially hypoxic. She was placed on supplemental oxygen and given a bronchodilator treatment. She was also treated with IV steroids. I discussed the patient's laboratory and radiographic studies with her. At this time I do feel that her condition is likely consistent with COPD. [facility] have agreed to evaluate the patient in the emergency department for further management and disposition. The patient was also treated with IV steroids and IV antibiotics. Triage Nursing notes reviewed. Prior medical records reviewed Vital Signs: reviewed and remarkable for hypoxia and hypertension. Differential diagnosis: Reactive airway disease, pneumonia, pneumothorax, COPD, CHF, infections, cardiac ischemia, pulmonary embolism, musculoskeletal, gastrointestinal, as well as other pathologies. ER treatment provided: See below Diagnostics interpreted by me: ECG: EKG was obtained in the emergency department. My interpretation is sinus rhythm at 67 bpm. Anterior T wave inversions were noted. There is no ectopy. This was compared to a tracing from January 132018. No significant changes were noted. Cardiac Monitoring: An order was placed for continuous cardiac monitoring. The monitor shows a rate of 69 bpm with sinus rhythm. Laboratory studies: As stated above and show below. Imaging studies: See below Consultation(s): [id number]: I discussed this case with Claudia Velasco who [facility] They will evaluate the patient in the emergency department for further management and disposition. Past Med/Surg History Medical History (Updated 03/18/21 @ 17:24 by Claudia Velasco PA-C) Alcohol use CAD (coronary artery disease) Carotid stenosis Chronic diastolic (congestive) heart failure Constipation Diabetes mellitus, type II HLD (hyperlipidemia) Hypothyroid Obesity (BMI 30.0-34.9) Pneumonia Surgical History S/P cholecystectomy Family History Other Asthma Diabetes Social History (Updated 03/18/21 @ 17:17 by Claudia Velasco PA-C) Smoking Status: Former smoker Smoking End Date: 2016; Do You Dip or Chew Tobacco: No; Hx Alcohol Use: Yes Alcohol type: beer Alcohol type Comment: 3-5 coors light daily Alcohol Intake Frequency: 4 or More x per/Week Hx Substance Use: No Preferred Language: Italian Communication Ability: Effective Beliefs That Will Affect Care: None marital status: / Current Living Situation: Alone Other Information That Helps Us Care for You: No Feels Safe at Home: No Is there a partner from a previous relationship who is making you feel unsafe now?: No Any Concerns about Your Family Situation: No Would You Like to Speak to Someone About Your Situation: No Safety Concerns: Feels Safe At This Time Assistive Devices: Denture - Upper, Denture - Lower and Glasses Allergies Allergies Allergy/AdvReac Type Severity Reaction Status Date / Time metoprolol AdvReac Mild Hypertensio Verified 03/18/21 16:34 n tetracycline AdvReac Mild HEADACHE Verified 03/18/21 16:34 Home Meds Home Medications Medication Instructions Recorded Confirmed Combivent Respimat 1 puff INHALATION Q4H PRN 01/13/19 03/18/21 acetaminophen [Tylenol Extra 1,000 mg PO Q4H PRN 01/13/19 03/18/21 Strength] aspirin 81 mg PO QAM 01/13/19 03/18/21 carvedilol 3.125 mg PO BID 01/13/19 03/18/21 fluticasone propionate [Flonase 2 spray INTRANASAL QAM PRN 01/13/19 03/18/21 Allergy Relief] levothyroxine 125 mcg PO QAM 01/13/19 03/18/21 lisinopril 40 mg PO QAM 01/13/19 03/18/21 loratadine 10 mg PO QAM 01/13/19 03/18/21 simvastatin 20 mg PO HS 01/13/19 03/18/21 Black Elderberry 1 tab PO DAILY 03/18/21 amlodipine 2.5 mg PO DAILY 03/18/21 03/18/21 ezetimibe 10 mg PO DAILY 03/18/21 03/18/21 metformin 500 mg PO BID 03/18/21 03/18/21 turmeric 200 mg PO DAILY 03/18/21 03/18/21 Previous Rx's Medication Instructions Recorded furosemide [Lasix] 40 mg PO QAM #30 tab 01/16/19 Results & Data (ED) Vital Signs Vital Signs - 24 hr 03/18/21 14:48 03/18/21 14:53 03/18/21 14:58 Temperature 36.3 C L Temperature Source Temporal Artery Scan Pulse Rate 76 63 Pulse Rate [Apical] Pulse Rate from SpO2 Sensor 63 Pulse Rhythm Regular Pulse Strength Normal Respiratory Rate 26 H 19 Respiratory Effort / Characteristics Non-Labored Spontaneous Respiratory Depth Normal Respiratory Pattern Regular Blood Pressure 163/89 H 181/97 H Blood Pressure Mean 113 125 Blood Pressure Position Sitting Pulse Oximetry 63 L 89 L 96 Oxygen Delivery Method Room Air Nasal Cannula Oxygen Flow Rate 4 Sepsis Recent Fever Within 48 Hours No Sepsis New/Unexplained Change in Mental Status No Sepsis Action Taken by Nursing No Action Required 03/18/21 15:00 03/18/21 15:12 03/18/21 15:22 Temperature Temperature Source Pulse Rate 62 64 Pulse Rate [Apical] 69 Pulse Rate from SpO2 Sensor 64 Pulse Rhythm Pulse Strength Respiratory Rate 20 17 18 Respiratory Effort / Characteristics Non-Labored Non-Labored Spontaneous Respiratory Depth Respiratory Pattern Blood Pressure Blood Pressure Mean Blood Pressure Position Pulse Oximetry 95 96 95 Oxygen Delivery Method Nasal Cannula Nasal Cannula Oxygen Flow Rate 4 4 Sepsis Recent Fever Within 48 Hours Sepsis New/Unexplained Change in Mental Status Sepsis Action Taken by Nursing 03/18/21 15:30 03/18/21 15:53 03/18/21 16:00 Temperature Temperature Source Pulse Rate 61 61 59 L Pulse Rate [Apical] Pulse Rate from SpO2 Sensor 61 62 60 Pulse Rhythm Pulse Strength Respiratory Rate 22 17 22 Respiratory Effort / Characteristics Respiratory Depth Respiratory Pattern Blood Pressure 146/83 H 138/82 Blood Pressure Mean 104 100 Blood Pressure Position Pulse Oximetry 92 91 89 L Oxygen Delivery Method Oxygen Flow Rate Sepsis Recent Fever Within 48 Hours Sepsis New/Unexplained Change in Mental Status Sepsis Action Taken by Nursing 03/18/21 16:30 03/18/21 16:31 03/18/21 16:37 Temperature Temperature Source Pulse Rate 61 60 Pulse Rate [Apical] 63 Pulse Rate from SpO2 Sensor 61 60 Pulse Rhythm Pulse Strength Respiratory Rate 23 18 19 Respiratory Effort / Characteristics Non-Labored Spontaneous Respiratory Depth Respiratory Pattern Blood Pressure 140/76 Blood Pressure Mean 97 Blood Pressure Position Pulse Oximetry 91 90 91 Oxygen Delivery Method Nasal Cannula Oxygen Flow Rate 4 Sepsis Recent Fever Within 48 Hours Sepsis New/Unexplained Change in Mental Status Sepsis Action Taken by [facility] Medications Current Medication List: was personally reviewed by me Laboratory Data Attestation: I reviewed the patient's lab results. Result diagrams: 03/18/21 15:10 03/18/21 15:10 Lab Results 0703/18/21 03/18/21 Range/Units 15:10 15:10 15:10 WBC 10.17 (4.8-10.8) K/uL RBC 4.66 (4.2-5.4) M/uL Hgb 14.8 (12.0-16.0) g/dL Hct 48.5 H (37-47) % MCV 104.1 H (80-100) fL MCH 31.8 (25-34) pg MCHC 30.5 L (32-36) g/dL RDW Std Deviation 59.3 H (36.4-46.3) fL RDW Coeff of Naa 15.5 H (11.5-14.5) % Plt Count 227 (130-400) K/uL MPV 10.4 (7.4-10.4) fL Immature Gran % (Auto) 0.3 % Neut % (Auto) 83.9 % Lymph % (Auto) 7.7 % [place] % (Auto) 7.0 % Eos % (Auto) 0.9 % Baso % (Auto) 0.2 % Neut # (Auto) 8.54 H (1.4-6.5) K/uL Lymph # (Auto) 0.78 L (1.2-3.4) K/uL [place] # (Auto) 0.71 H (0.11-0.59) K/uL Eos # (Auto) 0.09 (0-0.5) K/uL Baso # (Auto) 0.02 (0-0.2) K/uL Immature Gran # (Auto) 0.03 H (0.00-0.02) K/uL PT 10.9 (9.0-12.0) Seconds INR 1.1 (0.9-1.1) APTT 27.5 (21.0-31.0) Seconds PTT Ratio 1.0 VBG pH (7.36-7.41) VBG pCO2 (38-50) mmHg VBG pO2 mmHg VBG HCO3 mmol/L VBG O2 Saturation % VBG Base Excess mEq/L Barometric Pressure mm/Hg Sodium 135 L (136-145) mmol/L Potassium 4.0 (3.5-5.1) mmol/L Chloride 97 L (98-107) mmol/L Carbon Dioxide 36 H (21-32) mmol/L Anion Gap 2.0 L (3-11) BUN 10 (7-18) mg/dl Creatinine 0.60 (0.6-1.2) mg/dl Est Cr Clr Drug Dosing 101.1 ml/min Est GFR ( Amer) 111.6 ml/min Est GFR (Non-Af Amer) 96.3 ml/min BUN/Creatinine Ratio 17.3 (10-20) Glucose 139 H (70-99) mg/dl Calcium 8.9 (8.5-10.1) mg/dl Magnesium 1.6 L (1.8-2.4) mg/dl Total Bilirubin 0.6 (0.2-1) mg/dl AST 14 L (15-37) U/L ALT 41 (12-78) U/L Alkaline Phosphatase 84 (45-117) U/L Troponin I < 0.015 (0-0.045) ng/ml NT-Pro-B Natriuret Pep 780 (0-900) pg/ml Total Protein 7.8 (6.4-8.2) gm/dl Albumin 3.7 (3.4-5.0) gm/dl Globulin 4.1 H (2.5-4.0) gm/dl Albumin/Globulin Ratio 0.9 (0.9-2) COVID-19 Eval Order SARS-CoV-2 (PCR) (Negative) 03/18/21 03/18/21 03/18/21 Range/Units 15:23 15:55 15:55 WBC (4.8-10.8) K/uL RBC (4.2-5.4) M/uL Hgb (12.0-16.0) g/dL Hct (37-47) % MCV (80-100) fL MCH (25-34) pg MCHC (32-36) g/dL RDW Std Deviation (36.4-46.3) fL RDW Coeff of Naa (11.5-14.5) % Plt Count (130-400) K/uL MPV (7.4-10.4) fL Immature Gran % (Auto) % Neut % (Auto) % Lymph % (Auto) % [place] % (Auto) % Eos % (Auto) % Baso % (Auto) % Neut # (Auto) (1.4-6.5) K/uL Lymph # (Auto) (1.2-3.4) K/uL [place] # (Auto) (0.11-0.59) K/uL Eos # (Auto) (0-0.5) K/uL Baso # (Auto) (0-0.2) K/uL Immature Gran # (Auto) (0.00-0.02) K/uL PT (9.0-12.0) Seconds INR (0.9-1.1) APTT (21.0-31.0) Seconds PTT Ratio VBG pH 7.37 (7.36-7.41) VBG pCO2 62 H (38-50) mmHg VBG pO2 63 mmHg VBG HCO3 35 mmol/L VBG O2 Saturation 91.8 % VBG Base Excess 7.2 mEq/L Barometric Pressure 732.9 mm/Hg Sodium (136-145) mmol/L Potassium (3.5-5.1) mmol/L Chloride (98-107) mmol/L Carbon Dioxide (21-32) mmol/L Anion Gap (3-11) BUN (7-18) mg/dl Creatinine (0.6-1.2) mg/dl Est Cr Clr Drug Dosing ml/min Est GFR ( Amer) ml/min Est GFR (Non-Af Amer) ml/min BUN/Creatinine Ratio (10-20) Glucose (70-99) mg/dl Calcium (8.5-10.1) mg/dl Magnesium (1.8-2.4) mg/dl Total Bilirubin (0.2-1) mg/dl AST (15-37) U/L ALT (12-78) U/L Alkaline Phosphatase (45-117) U/L Troponin I (0-0.045) ng/ml NT-Pro-B Natriuret Pep (0-900) pg/ml Total Protein (6.4-8.2) gm/dl Albumin (3.4-5.0) gm/dl Globulin (2.5-4.0) gm/dl Albumin/Globulin Ratio (0.9-2) COVID-19 Eval Order Covid19 at [facility] SARS-CoV-2 (PCR) NEGATIVE (Negative) Administered Medications Albuterol (Albut/Ipratrop 3mg/0.5mg Neb 3 Ml Vial) 3 ml NEB QIDR NABEEL Stop: 04/17/21 19:41 Last Admin: 03/18/21 19:57 Dose: 3 ml Documented by: [id number] Carvedilol (Carvedilol 3.125 Mg Tab) 3.125 mg PO BID NABEEL Stop: 04/17/21 20:59 Last Admin: 03/18/21 21:10 Dose: 3.125 mg Documented by: [id number] Ezetimibe (Ezetimibe 10 Mg Tablet) 10 mg PO DAILY NABEEL Stop: 04/18/21 08:59 Last Admin: 03/18/21 21:10 Dose: 10 mg Documented by: [id number] Enoxaparin Sodium (Enoxaparin Inj 40 Mg/0.4 Ml Syr) 40 mg SQ Q24H NABEEL Stop: 04/17/21 20:59 Last Admin: 03/18/21 21:10 Dose: 40 mg Documented by: [id number] Magnesium Sulfate/Dextrose (Magnesium Sulfate / D5w) 1 gm in 100 mls @ 50 mls/hr IV Q2H NABEEL Stop: 03/18/21 23:14 Last Admin: 03/18/21 22:20 Dose: 50 mls/hr Documented by: [id number] Infusion: 03/18/21 22:19 Dose: 0 mls/hr Documented by: [id number] Admin: 03/18/21 21:08 Dose: 50 mls/hr Documented by: [id number] Insulin Aspart (Insulin Aspart 100 Units/Ml 3 Ml Pen) 0 units SC ACHS NABEEL Stop: 04/17/21 20:59 Last Admin: 03/18/21 21:22 Dose: 6 units Documented by: [id number] Cosigned by: [id number] Simvastatin (Simvastatin 20 Mg Tab) 20 mg PO HS NABEEL Stop: 04/17/21 20:59 Last Admin: 03/18/21 21:10 Dose: 20 mg Documented by: [id number] Discontinued Medications Albuterol (Albut/Ipratrop 3mg/0.5mg Neb 3 Ml Vial) 3 ml NEB NOW STA Stop: 03/18/21 15:13 Last Admin: 03/18/21 15:22 Dose: 3 ml Documented by: [id number] Albuterol (Albut/Ipratrop 3mg/0.5mg Neb 3 Ml Vial) 3 ml NEB NOW STA Stop: 03/18/21 16:28 Last Admin: 03/18/21 16:37 Dose: 3 ml Documented by: [id number] Piperacillin Sod/Tazobactam Sod (Zosyn) 4.5 gm in 120 mls @ 240 mls/hr IV NOW ONE Stop: 03/18/21 16:48 Last Infusion: 03/18/21 17:36 Dose: 0 mls/hr Documented by: [id number] Admin: 03/18/21 17:06 Dose: 240 mls/hr Documented by: [id number] Methylprednisolone (Methylprednisolone 125 Mg/2 Ml Vial) 125 mg IV NOW STA Stop: 03/18/21 16:20 Last Admin: 03/18/21 17:06 Dose: 125 mg Documented by: [id number] Imaging Data Radiologist's Impression: Chest X-Ray 03/18/21 15:04 SINGLE VIEW CHEST CLINICAL HISTORY: Dyspnea. FINDINGS: An AP, portable, upright chest radiograph is compared to chest x-ray and chest CT dated 01/13/2019. The heart is enlarged noting atherosclerotic calcification of the thoracic aorta. The pulmonary vasculature is noncongested. There are small pleural effusions with bibasilar airspace opacities. No pneumothorax is seen. The skeletal structures are osteopenic. The bony thorax is grossly intact. IMPRESSION: 1. Cardiomegaly without radiographic evidence of congestive failure. 2. Small pleural effusions with bibasilar airspace opacities, left greater than right. This could represent atelectasis versus an infectious/inflammatory pneumonitis and clinical correlation will be required. ACT 112: Negative or not required by law. Electronically signed by: Aris Cobian M.D. 03/18/2021 3:53 PM Discharge Plan Visit Data Chief Complaint: Shortness of Breath/Dyspnea Stated Complaint: SOB ED Provider: Dillon Lopez Discharge Problem: COPD exacerbation, Hypoxia Patient Disposition: Admitted As Inpatient Condition: Good Discharge Instructions Interventions: ED Discharge Assessment Last Done: 03/18/21 19:35
--- NOTE | 2021-03-18 15:55 | XRay Report ---
SINGLE VIEW CHEST CLINICAL HISTORY: Dyspnea. FINDINGS: An AP, portable, upright chest radiograph is compared to chest x-ray and chest CT dated 01/13. The heart is enlarged noting atherosclerotic calcification of the thoracic aorta. The pulmonar y vasculature is noncongested. There are small pleural effusions with bibasilar airspace opacities. N o pneumothorax is seen. The skeletal structures are osteopenic. The bony thorax is grossly intact. IMPRESSION: 1. Cardiomegaly without radiographic evidence of congestive failure. 2. Small pleural effusions with bibasilar airspace opacities, left greater than right. This could rep resent atelectasis versus an infectious/inflammatory pneumonitis and clinical correlation will be req uired. ACT 112: Negative or not required by law. Electronically signed by: Aris Cobian M.D. 03/18/2021 3:53 PM
[2021-03-18] MEDS ORDERED: methylPREDNISolone 125 MG/2 ML VIAL IV STA (16:19)
[2021-03-18] MEDS ORDERED: PIPERACILL/TAZOBAC CONSULT ACTIVE PRN (16:19)
[2021-03-18] MEDS ORDERED: PIPERACILLIN/TAZOBACTAM 4.5 GM/120 ML BAG IV ONE (16:19)
--- NOTE | 2021-03-18 16:41 | History & Physical Report ---
Date of Service March 18, 2021 Assessment & Plan (1) Acute respiratory failure with hypoxia: (2) Pneumonia: (3) COPD exacerbation: This is a 66-year-old female with PMH of COPD, history of long standing tobacco use but quit 3 years ago, alcohol dependence, CAD s/p stent in 2008, type 2 diab etes, chronic diastolic heart failure, hypothyroidism and other medical problems listed below who presents from home with worsening shortness of breath over the past month and was found to have COPD exacerbation and possible PNA. History of URI 1 mo ago with worsening SOB, cough, hypoxia in the mornings in high 60s per home pulse ox - is not on home O2 Initially hypoxic at 63% on RA in ER, now 93% on 4L NC O2 CXR with cardiomegaly without radiographic evidence of congestive failure, small pleural effusions with bibasilar airspace opacities, left > right. This could represent atelectasis versus an infectious/inflammatory pneumonitis Afebrile, no leukocytosis, blood cultures drawn, procal pending Given nebs in ER along with 125mg IV Solu-medrol 125mg x 1 and started on Zosyn Considered likelihood of PE but SOB correlates with URI and seems more consistent with infectious source and COPD- consider CTA chest if no improvement overnight on regimen Continue Zosyn, follow blood cultures, DuoNeb QIDR, Solu-medrol 40mg IV in AM Supplemental O2 Likely underlying nocturnal hypoxemia per history - needs nocturnal pulse ox prior to discharge (4) Chronic diastolic (congestive) heart failure: Appears compensated BNP WNL, no evidence of decompensated heart failure on CXR Continue home dose Lasix 40 mg daily, low-sodium diet (5) Alcohol use: Drinks 3-5 beers every night, cannot remember the last time she did not drink. Denies any history of withdrawal Alcohol withdrawal protocol ordered, at risk Ativan as needed Monitor on telemetry (6) Diabetes mellitus, type II: Hemoglobin A1c 6.5 from December 2020 Hold home agents SSI while in-patient - tightened correction scale due to likely hyperglycemia in setting of IV steroids BSG AC HS (7) HLD (hyperlipidemia): Continue statin (8) Hypothyroid: Continue levothyroxine DVT Ppx: SQ Lovenox Code status: FULL PCP: Rachel Dispo: Admitted to PCU Patient seen in collaboration with Dr. Odell. Please see addendum. History of Present Illness Chief Complaint: Shortness of breath Primary Care Provider: Bipin Ramos MD This is a 66-year-old female with PMH of COPD, history of long standing tobacco use but quit 3 years ago, alcohol dependence, CAD s/p stent in 2008, type 2 diabetes, chronic diastolic heart failure, hypothyroidism and other medical problems listed below who presents from home with worsening shortness of breath over the past month. Had a URI 1 month ago that started to get better before patient again became short of breath. Has pulse ox at home and is usually between 90 to 95% on room air but over the past 10 days, patient has been hypoxic at 67 to 70% in the morning and sometimes throughout the day. Daughter convinced her to come to the ER today for further evaluation. States she is able to do normal tasks around the house but is felt significantly more tired lately. Endorses dry cough and intermittent wheezing as well as nausea. Denies any fever, chills, lightheadedness, headache, chest pain, vomiting, abdominal pain, dysuria, diarrhea or constipation. Patient uses Combivent inhaler as needed every 4 hours at home and has been using much more frequently over the past 3 days. Drinks 3-5 beers every evening and cannot remember the last evening she did not drink. Denies any history of alcohol withdrawal. Denies weight gain, lower extremity edema or orthopnea. Is able to sleep lying flat without issue. Denies any recent medication changes. Allergies Allergy/AdvReac Type Severity Reaction Status Date / Time metoprolol AdvReac Mild Hypertensio Verified 03/18/21 16:34 n tetracycline AdvReac Mild HEADACHE Verified 03/18/21 16:34 Home Medications Medication Instructions Recorded Confirmed Type acetaminophen 500 mg tablet 1,000 mg PO Q4H PRN 01/13/19 03/18/21 History (Tylenol Extra Strength) aspirin 81 mg tablet,delayed 81 mg PO QAM 01/13/19 03/18/21 History release carvedilol 3.125 mg tablet 3.125 mg PO BID 01/13/19 03/18/21 History fluticasone propionate 50 2 spray INTRANASAL QAM PRN 01/13/19 03/18/21 History mcg/actuation nasal spray,suspension (Flonase Allergy Relief) ipratropium 20 mcg-albuterol 100 1 puff INHALATION Q4H PRN 01/13/19 03/18/21 History mcg/actuation mist for inhalation (Combivent Respimat) levothyroxine 125 mcg tablet 125 mcg PO QAM 01/13/19 03/18/21 History lisinopril 40 mg tablet 40 mg PO QAM 01/13/19 03/18/21 History loratadine 10 mg tablet 10 mg PO QAM 01/13/19 03/18/21 History simvastatin 20 mg tablet 20 mg PO HS 01/13/19 03/18/21 History furosemide 40 mg tablet (Lasix) 40 mg PO QAM #30 tab 01/16/19 03/18/21 Rx Black Elderberry 1 tab PO DAILY 03/18/21 History amlodipine 2.5 mg tablet 2.5 mg PO DAILY 03/18/21 03/18/21 History ezetimibe 10 mg tablet 10 mg PO DAILY 03/18/21 03/18/21 History metformin 500 mg tablet 500 mg PO BID 03/18/21 03/18/21 History turmeric 400 mg capsule 200 mg PO DAILY 03/18/21 03/18/21 History budesonide-formoterol HFA 80 2 inh INHALATION BID #10.2 g 03/21/21 Rx mcg-4.5 mcg/actuation aerosol inhaler (Symbicort) prednisone 10 mg tablet 10 mg PO UD #9 tab 03/21/21 Rx tiotropium bromide 18 mcg capsule 1 cap INHALATION DAILY #30 inh 03/21/21 Rx with inhalation device (Spiriva with HandiHaler) Past Med/Surg History Medical History (Updated 03/18/21 @ 17:24 by Claudia Velasco PA-C) Alcohol use CAD (coronary artery disease) Carotid stenosis Chronic diastolic (congestive) heart failure Constipation Diabetes mellitus, type II HLD (hyperlipidemia) Hypothyroid Obesity (BMI 30.0-34.9) Pneumonia Surgical History S/P cholecystectomy Family History Other Asthma Diabetes Social History (Updated 03/18/21 @ 17:17 by Claudia Velasco PA-C) Smoking Status: Former smoker Smoking End Date: 2016; Do You Dip or Chew Tobacco: No; Hx Alcohol Use: Yes Alcohol type: beer Alcohol type Comment: 3-5 coors light daily Alcohol Intake Frequency: 4 or More x per/Week Hx Substance Use: No Preferred Language: Telugu Communication Ability: Effective Beliefs That Will Affect Care: None marital status: / Current Living Situation: Alone Other Information That Helps Us Care for You: No Feels Safe at Home: No Is there a partner from a previous relationship who is making you feel unsafe now?: No Any Concerns about Your Family Situation: No Would You Like to Speak to Someone About Your Situation: No Safety Concerns: Feels Safe At This Time Assistive Devices: None Review of Systems Review of Systems: At least ten systems reviewed and negative except as noted in the HPI. Physical Exam Physical Exam: General Appearance: WD/WN, vitals as above, NAD, sitting up in bed, pleasant, obese, conversing easily Head: normocephalic, atraumatic Eyes: normal inspection, PERRL, conjunctivae normal, anicteric sclerae ENT: external ear and nose normal, oropharynx normal Neck: normal visual inspection, trachea midline, no thyromegaly Respiratory: normal respiratory effort, coarse lung sounds at bases, lung sounds diminished throughout, no wheeze, rales or rhonchi. No accessory muscle use Cardiovascular: regular rate, rhythm, no murmur, normal peripheral pulses, trace BLE edema. Vessels: no JVD Chest: normal inspection of chest Abdomen/GI: normal bowel sounds, soft, nontender, no hepatosplenomegaly Extremities/Musculoskeletal: no cyanosis or clubbing, extremities motor strength 5/5 Neurologic: PERRL, EOMI, accommodation nl, no face palsy, no dysarthria, CN's II-XI intact bilaterally and moves all extremities Psychiatric: A+Ox3, euthymic affect Skin: no rashes, normal color, warm/dry Results & Data Results & Data ([facility]) Vital Signs (Past 12 Hours) Vital Signs Temp Pulse Pulse Resp BP Pulse Ox 03/18/21 16:37 63 19 91 03/18/21 16:00 59 L 22 138/82 89 L 03/18/21 15:53 61 17 146/83 H 91 03/18/21 15:30 61 22 92 03/18/21 15:22 69 18 95 03/18/21 15:12 64 17 96 03/18/21 15:00 62 20 95 03/18/21 14:58 63 19 181/97 H 96 03/18/21 14:53 89 L 03/18/21 14:48 36.3 C L 76 26 H 163/89 H 63 L Laboratory Results Short CBC 03/18/21 Range/Units 15:10 WBC 10.17 (4.8-10.8) K/uL Hgb 14.8 (12.0-16.0) g/dL Hct 48.5 H (37-47) % Plt Count 227 (130-400) K/uL BMP 03/18/21 15:10 Sodium 135 L Potassium 4.0 Chloride 97 L Carbon Dioxide 36 H BUN 10 Creatinine 0.60 Glucose 139 H Calcium 8.9 Cardiac Enzymes 03/18/21 Range/Units 15:10 Troponin I < 0.015 (0-0.045) ng/ml Liver Function 03/18/21 Range/Units 15:10 Total Bilirubin 0.6 (0.2-1) mg/dl AST 14 L (15-37) U/L ALT 41 (12-78) U/L Alkaline Phosphatase 84 (45-117) U/L Albumin 3.7 (3.4-5.0) gm/dl Diagnostic Findings Chest X-Ray 03/18/21 15:04 SINGLE VIEW CHEST CLINICAL HISTORY: Dyspnea. FINDINGS: An AP, portable, upright chest radiograph is compared to chest x-ray and chest CT dated 01/13/2019. The heart is enlarged noting atherosclerotic calcification of the thoracic aorta. The pulmonary vasculature is noncongested. There are small pleural effusions with bibasilar airspace opacities. No pneumothorax is seen. The skeletal structures are osteopenic. The bony thorax is grossly intact. IMPRESSION: 1. Cardiomegaly without radiographic evidence of congestive failure. 2. Small pleural effusions with bibasilar airspace opacities, left greater than right. This could represent atelectasis versus an infectious/inflammatory pneumonitis and clinical correlation will be required. ACT 112: Negative or not required by law. Electronically signed by: Aris Cobian M.D. 03/18/2021 3:53 PM Code Status & VTE Plan VTE Prophylaxis Plan VTE Prophylaxis will be ordered: Yes Supervising Physician Co-Signing Physician Notes Pt was seen and examined. Agreed with Claudia TESFAYE exam, assessment and plan. 66-year-old female with PMH of COPD, history of long standing tobacco used, alcohol dependence, CAD s/p stent in 2008, type 2 diabetes, chronic diastolic heart failure, hypothyroidism who presents from home with worsening shortness of breath over the past month. Pt said that about 1 month ago he had an URI 1 month, but about in the last few days her breathing got worst. Daughter said that her oxygen sat dropped in the 70%. Denies any fever, chills, lightheadedness, headache, chest pain, vomiting, abdominal pain, dysuria, diarrhea or constipation. CXR in the ER showed Small pleural effusions with bibasilar airspace opacities, left greater than right. in ER received 125mg IV Solu-medrol 125mg x 1 and IV Zosyn. Will continue Zosyn, follow blood cultures, DuoNeb QIDR, Solu-medrol 40mg IV in AM. Continue Neb treatment and supplement oxygen. Will continue monitor closely. MD Jose R
[2021-03-18] MEDS ORDERED: CARBOHYDRATES FOR HYPOGLYCEMIA PO PRN (19:42)
[2021-03-18] MEDS ORDERED: DEXTROSE 50% 50 ML SYRINGE IV PRN (19:42)
[2021-03-18] MEDS ORDERED: IPRATROPIUM BROMIDE/ALBUTEROL respimat INH INH PRN (19:42)
[2021-03-18] MEDS ORDERED: ONDANSETRON INJ 2 MG/ML 2 ML VIAL IV PRN (19:42)
[2021-03-18] MEDS ORDERED: POLYETHYLENE (MIRALAX) 17 GM PACK PO PRN (19:42)
[2021-03-18] MEDS ORDERED: LORazepam 1 MG/2 ML VIAL IV PRN (19:42)
[2021-03-18] MEDS ORDERED: GLUCAGON FOR INJ 1 MG VIAL SQ PRN (19:42)
[2021-03-18] MEDS ORDERED: FLUTICASONE PROPIONATE NA SPR 16 GM BTL NAE PRN (19:42)
[2021-03-18] MEDS ORDERED: GLUCOSE 10 TABS/TUBE PO PRN (19:42)
[2021-03-18] MEDS ORDERED: GLUCOSE 40% GEL 15 GM TUBE PO PRN (19:42)
[2021-03-18] MEDS: ALBUT/IPRATROP 3MG/0.5MG NEB 3 ML VIAL NEB SCH (19:57)
[2021-03-18] MEDS: MAGNESIUM SULFATE / D5W 1 GM/100 ML BAG IV SCH ×2 (21:08→22:20)
[2021-03-18] MEDS: ENOXAPARIN INJ 40 MG/0.4 ML SYR SQ SCH (21:10)
[2021-03-18] MEDS: SIMVASTATIN 20 MG TAB PO SCH (21:10)
[2021-03-18] MEDS: carvediloL 3.125 MG TAB PO SCH (21:10)
[2021-03-18] MEDS: EZETIMIBE 10 MG TABLET PO SCH (21:10)
[2021-03-18] MEDS: INSULIN ASPART 100 UNITS/ML 3 ML PEN SC SCH (21:22)
[2021-03-18] MEDS ORDERED: Albuterol HFA 8 GM Inhaler (Combivent Respimat P&T Subs) INH SCH (23:00)
[2021-03-18] MEDS ORDERED: Ipratropium HFA Inhaler (Combivent Respimat P&T Subs) INH SCH (23:00)
[2021-03-18] MEDS ORDERED: Albuterol HFA 8 GM Inhaler (Combivent Respimat P&T Subs) INH PRN (23:00)
[2021-03-18] MEDS ORDERED: Ipratropium HFA Inhaler (Combivent Respimat P&T Subs) INH PRN (23:00)
[2021-03-18] MEDS: PIPERACILLIN/TAZOBACTAM 4.5 GM in DEXTROSE 5% 100 ML IV SCH (23:30)
[2021-03-19] MEDS: PIPERACILLIN/TAZOBACTAM 4.5 GM in DEXTROSE 5% 100 ML IV SCH ×3 (05:53→22:03)
[2021-03-19] MEDS: LEVOTHYROXINE SODIUM 125 MCG TABLET PO SCH (05:53)
[2021-03-19] MEDS: ACETAMINOPHEN 325 MG TAB PO PRN ×2 (05:57→22:03)
--- NOTE | 2021-03-19 06:07 | Electrocardiogram Report ---
Test Reason : Blood Pressure : / mmHG Vent. Rate : 067 BPM Atrial Rate : 067 BPM P-R Int : 128 ms QRS Dur : 086 ms QT Int : 400 ms P-R-T Axes : 057 073 035 degrees QTc Int : 422 ms Normal sinus rhythm Possible Left atrial enlargement T wave abnormality, consider anterior ischemia Abnormal ECG When compared with ECG of 13-JAN-2019 18:05, T wave inversion more evident in Anterior leads Confirmed by Jonathon Wasserman ([id number]) on 03/19/2021 6:07:38 AM Referred By: Confirmed By:Jonathon Wasserman
[2021-03-19 06:48] LABS: Hemoglobin 14.4 g/dL (12.0-16.0); Mean Corpuscular Hgb Conc 30.6 g/dL (32-36); Mean Corpuscular Volume 104.4 fL (80-100); Mean Platelet Volume 10.4 fL (7.4-10.4); Platelet Count 216 K/uL (130-400); RDW Coefficient of Variation 15.3 % (11.5-14.5); RDW Standard Deviation 58.7 fL (36.4-46.3); White Blood Count 9.32 K/uL (4.8-10.8)
[2021-03-19 07:18] LABS: Estimated Average Glucose 131 mg/dl; Hemoglobin A1C 6.2 % (4.5-5.6)
[2021-03-19 07:25] LABS: BUN Creatinine Ratio 18.1 (10-20); Calcium 8.6 mg/dl (8.5-10.1); Creatinine Clr Calc Pharmacy 109.6 ml/min; Est GFR (African American) 114.9 ml/min; Est GFR (Non-African American) 99.1 ml/min; Potassium 4.1 mmol/L (3.5-5.1)
[2021-03-19] MEDS: ALBUT/IPRATROP 3MG/0.5MG NEB 3 ML VIAL NEB SCH ×4 (07:46→19:34)
[2021-03-19] MEDS: INSULIN ASPART 100 UNITS/ML 3 ML PEN SC SCH ×4 (08:32→21:10)
[2021-03-19] MEDS: LORATADINE 10 MG TAB PO SCH (08:33)
[2021-03-19] MEDS: amLODIPine BESYLATE 5 MG TAB PO SCH (08:33)
[2021-03-19] MEDS: FUROSEMIDE 40 MG TAB PO SCH (08:33)
[2021-03-19] MEDS: lisinopril 40 MG TAB PO SCH (08:33)
[2021-03-19] MEDS: ASPIRIN 81 MG ECTAB PO SCH (08:33)
[2021-03-19] MEDS: carvediloL 3.125 MG TAB PO SCH ×2 (08:34→20:09)
[2021-03-19] MEDS ORDERED: methylPREDNISolone 40 MG in SYRINGE 0 ML IV SCH (09:00)
[2021-03-19] MEDS: EZETIMIBE 10 MG TABLET PO SCH (09:44)
--- NOTE | 2021-03-19 18:10 | Hospitalist Progress Note ---
Date of Service March 19, 2021 Assessment & Plan (1) Acute respiratory failure with hypoxia: (2) Pneumonia: (3) COPD exacerbation: 66-year-old female with PMH of COPD, history of tobacco abuse, alcohol dependence, CAD s/p stent in 2008, type 2 diabetes, chronic diastolic heart failure, hypothyroidism presented to the ER for worsening shortness of breath and hypoxia for the past few weeks. CXR on admission with cardiomegaly without radiographic evidence of congestive failure, small pleural effusions with bibasilar airspace opacities, left > right. No leukocytosis with normal procalcitonin In the ER received IV Solu-Medrol and IV Zosyn We will transition IV Zosyn to Levaquin Will transition to PO steroid Continue neb treatment and oxygen supplement flutter valve and guaifenesin added Case discussed with pulmonology (no official consult placed). As per pulmonology recommend to discharge on Incruse We will consider to wean off from the oxygen Blood culture pending Monitor to get overnight multiple oxygen Consider two-step exercise plan discharge (4) Chronic diastolic (congestive) heart failure: Appears compensated BNP WNL, no evidence of decompensated heart failure on CXR Continue home dose Lasix 40 mg daily, low-sodium diet (5) Alcohol use: Drinks 3-5 beers every night, cannot remember the last time she did not drink. Denies any history of withdrawal Alcohol withdrawal protocol ordered, at risk Ativan as needed (6) Diabetes mellitus, type II: Most recent Hemoglobin A1c 6.5 on 03/19/21 Continue to hold home agents On insulin/NovoLog sliding scale (7) HLD (hyperlipidemia): Continue statin (8) Hypothyroid: Continue levothyroxine DVT Ppx: SQ Lovenox Code status: FULL PCP: Rachel Disposition We will discharge once stable Admission and Anticipated Discharge Date Admission Date: March 18, 2021 Subjective Patient was seen and examined for follow-up of shortness of breath Sitting in bed with no distress Patient said that her breathing felt 10 times much better She said that she continues to cough Denies any chest pain, palpitation, dizziness, shortness of breath. Review of Systems Review of Systems: All systems reviewed & are unremarkable except as noted in Subjective Physical Exam Physical Exam: General- No acute distress Head- atraumatic Eyes- PERRL, EOMI, ENT- oropharynx clear Neck- supple, no JVD Lungs- Diminished breath sound Heart- regular rhythm; no murmur Abdomen- normal bowel sounds, soft, nontender Extremities- no calf tenderness Neuro- alert, oriented x 3; PERRL, EOMI; no facial palsy; no dysarthria Skin- warm & dry Results & Data Results & Data ([facility]) Vital Signs (Past 12 Hours) Vital Signs Temp Pulse Resp BP BP Pulse Ox 03/19/21 15:01 76 18 88 L 03/19/21 14:56 36.8 C 63 16 155/75 H 100 03/19/21 11:44 36.6 C 70 18 137/82 90 03/19/21 11:02 70 16 92 03/19/21 07:46 66 15 91 03/19/21 07:27 36.6 C 64 18 137/83 93
[2021-03-19] MEDS: SIMVASTATIN 20 MG TAB PO SCH (20:09)
[2021-03-19] MEDS: ENOXAPARIN INJ 40 MG/0.4 ML SYR SQ SCH (20:09)
[2021-03-20] MEDS: guaiFENesin 200 MG TAB PO SCH ×4 (01:06→21:06)
[2021-03-20] MEDS ORDERED: SODIUM CHLORIDE 0.9% 500 ML IV ONE ×2 (03:51→04:36)
--- NOTE | 2021-03-20 03:53 | Communication Note ---
Date of Service: March 20, 2021 Notified by RN of SBP 70 to 80s. Patient asymptomatic. AP Hypotension IVF Hold amlodipine, lisinopril, Lasix for now Will relay to AM provider.
[2021-03-20] MEDS ORDERED: methylPREDNISolone 40 MG in SYRINGE 0 ML IV SCH (03:55)
[2021-03-20 04:29] LABS: Basophils # (auto) 0.01 K/uL (0-0.2); Basophils % (auto) 0.1 %; Eosinophils # (auto) 0.01 K/uL (0-0.5); Eosinophils % (auto) 0.1 %; Hemoglobin 13.6 g/dL (12.0-16.0); Immature Granulocytes # (auto) 0.02 K/uL (0.00-0.02); Immature Granulocytes % (auto) 0.2 %; Lymphocytes % (auto) 14.9 %; Mean Corpuscular Hemoglobin 31.2 pg (25-34); Mean Corpuscular Hgb Conc 29.6 g/dL (32-36); Mean Corpuscular Volume 105.5 fL (80-100); Monocytes # (auto) 0.81 K/uL (0.11-0.59); Monocytes % (auto) 7.5 %; Neutrophils # (auto) 8.31 K/uL (1.4-6.5); Neutrophils % (auto) 77.2 %; Platelet Count 226 K/uL (130-400); RDW Coefficient of Variation 15.4 % (11.5-14.5); RDW Standard Deviation 59.4 fL (36.4-46.3); Red Blood Count 4.36 M/uL (4.2-5.4); White Blood Count 10.76 K/uL (4.8-10.8)
[2021-03-20 04:31] LABS: BUN Creatinine Ratio 24.7 (10-20); Calcium 8.4 mg/dl (8.5-10.1); Creatinine Clr Calc Pharmacy 70.9 ml/min; Est GFR (African American) 83.9 ml/min; Est GFR (Non-African American) 72.4 ml/min
[2021-03-20 05:00] LABS: Potassium 3.8 mmol/L (3.5-5.1)
[2021-03-20 05:01] LABS: Magnesium 2.3 mg/dl (1.8-2.4)
[2021-03-20] MEDS: LEVOTHYROXINE SODIUM 125 MCG TABLET PO SCH (05:28)
[2021-03-20] MEDS: PIPERACILLIN/TAZOBACTAM 4.5 GM in DEXTROSE 5% 100 ML IV SCH (05:52)
[2021-03-20] MEDS: ALBUT/IPRATROP 3MG/0.5MG NEB 3 ML VIAL NEB SCH ×4 (07:08→19:20)
[2021-03-20] MEDS: ACETAMINOPHEN 325 MG TAB PO PRN ×2 (07:45→20:43)
[2021-03-20] MEDS: predniSONE 20 MG TAB PO SCH (07:46)
[2021-03-20] MEDS: ASPIRIN 81 MG ECTAB PO SCH (07:46)
[2021-03-20] MEDS: EZETIMIBE 10 MG TABLET PO SCH (07:47)
[2021-03-20] MEDS: INSULIN ASPART 100 UNITS/ML 3 ML PEN SC SCH ×4 (07:51→21:09)
[2021-03-20] MEDS: amLODIPine BESYLATE 5 MG TAB PO SCH (11:08)
[2021-03-20] MEDS: carvediloL 3.125 MG TAB PO SCH ×2 (11:08→21:06)
[2021-03-20] MEDS: LORATADINE 10 MG TAB PO SCH (11:08)
[2021-03-20] MEDS: levoFLOXacin 750 MG TAB PO SCH (12:03)
--- NOTE | 2021-03-20 16:30 | Hospitalist Progress Note ---
Date of Service March 20, 2021 Assessment & Plan (1) Acute respiratory failure with hypoxia: (2) Pneumonia: (3) COPD exacerbation: 66-year-old female with PMH of COPD, history of tobacco abuse, alcohol dependence, CAD s/p stent in 2008, type 2 diabetes, chronic diastolic heart failure, hypothyroidism presented to the ER for worsening shortness of breath and hypoxia for the past few weeks. CXR on admission with cardiomegaly without radiographic evidence of congestive failure, small pleural effusions with bibasilar airspace opacities, left > right. No leukocytosis with normal procalcitonin In the ER received IV Solu-Medrol and IV Zosyn We will transition IV Zosyn to Levaquin Continue on p.o. steroids Case discussed with pulmonology (no official consult placed). As per pulmonology recommend to discharge on Incruse Patient is currently in room air Ordered for nocturnal pulse oximetry two-step exercise tomorrow to assess home oxygen needs (4) Chronic diastolic (congestive) heart failure: Appears compensated BNP WNL, no evidence of decompensated heart failure on CXR Continue home dose Lasix 40 mg daily, low-sodium diet (5) Alcohol use: Drinks 3-5 beers every night, cannot remember the last time she did not drink. No sign of symptoms of alcohol withdrawal at present (6) Diabetes mellitus, type II: Most recent Hemoglobin A1c 6.5 on 03/19/21 Continue to hold home agents On insulin/NovoLog sliding scale (7) HLD (hyperlipidemia): Continue statin (8) Hypothyroid: Continue levothyroxine DVT Ppx: SQ Lovenox Code status: FULL PCP: Rachel Disposition Possible discharge home tomorrow. Admission and Anticipated Discharge Date Admission Date: March 18, 2021 Subjective Patient was seen and examined for follow-up of shortness of breath Patient reports her shortness of breath has much improved today, does not have any cough No fever no chills Review of Systems Review of Systems: All systems reviewed & are unremarkable except as noted in Subjective Physical Exam Constitutional: WD/WN, vitals as above no acute distress Eyes: PERRL, conjunctivae normal, anicteric sclerae ENMT: external ear and nose normal, oropharynx normal Neck: trachea midline, no thyromegaly Respiratory: Auscultation: + diminished lung sounds and + wheezes; no crackles and no rales Cardiovascular: RRR, no murmur, no edema Gastrointestinal (Abdomen): Percussion/Palpation: abdomen soft; abdomen nontender Musculoskeletal: no cyanosis or clubbing, extremities motor strength 5/5 Skin: no rashes, warm and dry Neurologic: PERRL, EOMI, accommodation nl, no face palsy, no dysarthria Psychiatric: A+Ox3, euthymic affect Results & Data Results & Data ([facility]) Vital Signs (Past 12 Hours) Vital Signs Temp Pulse Pulse Pulse Resp BP Pulse Ox 03/20/21 16:00 68 03/20/21 15:28 36.7 C 71 18 147/82 H 90 03/20/21 14:56 70 18 91 03/20/21 11:46 36.6 C 76 20 120/68 90 03/20/21 10:44 78 18 98 03/20/21 08:00 66 03/20/21 07:38 36.6 C 81 18 103/67 90 03/20/21 07:11 74 16 91 03/20/21 05:05 53 L 115/75
[2021-03-20] MEDS: SIMVASTATIN 20 MG TAB PO SCH (21:06)
[2021-03-21] MEDS: LEVOTHYROXINE SODIUM 125 MCG TABLET PO SCH (05:58)
[2021-03-21] MEDS: guaiFENesin 200 MG TAB PO SCH ×2 (05:58→13:55)
[2021-03-21] MEDS: ALBUT/IPRATROP 3MG/0.5MG NEB 3 ML VIAL NEB SCH ×3 (07:17→15:04)
[2021-03-21] MEDS: LORATADINE 10 MG TAB PO SCH (08:10)
[2021-03-21] MEDS: carvediloL 3.125 MG TAB PO SCH (08:10)
[2021-03-21] MEDS: ASPIRIN 81 MG ECTAB PO SCH (08:10)
[2021-03-21] MEDS: amLODIPine BESYLATE 5 MG TAB PO SCH (08:10)
[2021-03-21] MEDS: predniSONE 20 MG TAB PO SCH (08:10)
[2021-03-21] MEDS: EZETIMIBE 10 MG TABLET PO SCH (08:10)
[2021-03-21] MEDS: INSULIN ASPART 100 UNITS/ML 3 ML PEN SC SCH ×2 (08:11→12:09)
[2021-03-21] MEDS: FUROSEMIDE 40 MG TAB PO SCH (08:49)
[2021-03-21] MEDS: lisinopril 40 MG TAB PO SCH (08:49)
--- NOTE | 2021-03-21 10:21 | Hospitalist Progress Note ---
Date of Service March 21, 2021 Assessment & Plan (1) Acute respiratory failure with hypoxia: (2) Pneumonia: (3) COPD exacerbation: 66-year-old female with PMH of COPD, history of tobacco abuse, alcohol dependence, CAD s/p stent in 2008, type 2 diabetes, chronic diastolic heart failure, hypothyroidism presented to the ER for worsening shortness of breath and hypoxia for the past few weeks. Admitted on acute hypoxemic respiratory failure secondary to COPD exacerbation CXR on admission with cardiomegaly without radiographic evidence of congestive failure, small pleural effusions with bibasilar airspace opacities, left > right. No leukocytosis with normal procalcitonin We will discontinue antibiotic, given normal procalcitonin Nocturnal pulse oximetry and two-step exercise shows patient requires 2 L oxygen during nighttime and at rest, 3 L with activity Patient is concerned with her chronic oxygen use, and she may not be able to continue her work at [employer] Currently without oxygen, she is high risk for developing respiratory failure, updated patient, She should be followed with a lung specialist/pulmonology, will send message to her primary care physician to schedule As her COPD improves, and with pulmonology help, her oxygen requirement can get less in the future, Will also need a formal lung function test But at present time, patient needs to be on continuous oxygen with above setting, patient voiced understanding (4) Chronic diastolic (congestive) heart failure: Compensated BNP WNL, no evidence of decompensated heart failure on CXR Continue home dose Lasix 40 mg daily, low-sodium diet (5) Alcohol use: Drinks 3-5 beers every night, cannot remember the last time she did not drink. No sign of symptoms of alcohol withdrawal at present Patient counseled to quit drinking alcohol (6) Diabetes mellitus, type II: Most recent Hemoglobin A1c 6.5 on 03/19/21 Home agents resumed on discharge On insulin/NovoLog sliding scale during hospital stay (7) HLD (hyperlipidemia): Continue statin (8) Hypothyroid: Continue levothyroxine DVT Ppx: SQ Lovenox Code status: FULL PCP: Rachel Disposition Stable to be discharged home today Admission and Anticipated Discharge Date Admission Date: March 18, 2021 Subjective She reports of feeling better, Cough and shortness of breath has improved No complaint of chest pain, no fever or chills Patient will need continuous oxygen on discharge home, Review of Systems Review of Systems: All systems reviewed & are unremarkable except as noted in Subjective Physical Exam Constitutional: WD/WN, vitals as above no acute distress Eyes: PERRL, conjunctivae normal, anicteric sclerae ENMT: external ear and nose normal, oropharynx normal Neck: trachea midline, no thyromegaly Respiratory: Auscultation: + diminished lung sounds; no crackles, no rales and no wheezes Cardiovascular: RRR, no murmur, no edema Gastrointestinal (Abdomen): Percussion/Palpation: abdomen soft; abdomen nonten sudha Musculoskeletal: no cyanosis or clubbing, extremities motor strength 5/5 Skin: no rashes, warm and dry Neurologic: PERRL, EOMI, accommodation nl, no face palsy, no dysarthria Psychiatric: A+Ox3, euthymic affect Results & Data Results & Data ([facility]) Vital Signs (Past 12 Hours) Vital Signs Temp Pulse Pulse Pulse Pulse Pulse Pulse 03/21/21 08:00 36.8 C 68 03/21/21 07:45 57 L 71 80 62 03/21/21 07:19 60 03/21/21 03:20 36.4 C L 64 03/21/21 02:47 03/21/21 01:21 66 03/20/21 22:50 36.6 C 67 Pulse Resp Resp Resp Resp Resp Resp 03/21/21 08:00 16 03/21/21 07:45 62 18 20 20 18 18 03/21/21 07:19 18 03/21/21 03:20 18 03/21/21 02:47 72 03/21/21 01:21 03/20/21 22:50 18 BP Pulse Ox Pulse Ox Pulse Ox Pulse Ox Pulse Ox Pulse Ox 03/21/21 08:00 142/68 H 98 03/21/21 07:45 90 92 86 L 90 82 L 03/21/21 07:19 95 03/21/21 03:20 136/84 91 03/21/21 02:47 93 03/21/21 01:21 03/20/21 22:50 143/77 H 95
[2021-03-21] MEDS: levoFLOXacin 750 MG TAB PO SCH (11:15)
[2021-03-21] MEDS: ACETAMINOPHEN 325 MG TAB PO PRN (11:15)
--- NOTE | 2021-03-21 11:18 | Discharge Summary ---
Date of Service March 21, 2021 Admission HPI Per Admitting Provider This is a 66-year-old female with PMH of COPD, history of long standing tobacco use but quit 3 years ago, alcohol dependence, CAD s/p stent in 2008, type 2 diabetes, chronic diastolic heart failure, hypothyroidism and other medical problems listed below who presents from home with worsening shortness of breath over the past month. Had a URI 1 month ago that started to get better before patient again became short of breath. Has pulse ox at home and is usually between 90 to 95% on room air but over the past 10 days, patient has been hypoxic at 67 to 70% in the morning and sometimes throughout the day. Daughter convinced her to come to the ER today for further evaluation. States she is able to do normal tasks around the house but is felt significantly more tired lately. Endorses dry cough and intermittent wheezing as well as nausea. Denies any fever, chills, lightheadedness, headache, chest pain, vomiting, abdominal pain, dysuria, diarrhea or constipation. Patient uses Combivent inhaler as needed every 4 hours at home and has been using much more frequently over the past 3 days. Drinks 3-5 beers every evening and cannot remember the last evening she did not drink. Denies any history of alcohol withdrawal. Denies weight gain, lower extremity edema or orthopnea. Is able to sleep lying flat without issue. Denies any recent medication changes. Principal Diagnosis COPD exacerbation Chronic CHF Type 2 diabetes Discharge Exam Constitutional WD/WN, vitals as above no acute distress Eyes PERRL, conjunctivae normal, anicteric sclerae ENMT external ear and nose normal, oropharynx normal Neck trachea midline, no thyromegaly Respiratory Auscultation: + diminished lung sounds; no crackles, no rales and no wheezes Cardiovascular RRR, no murmur, no edema Gastrointestinal (Abdomen) Percussion/Palpation: abdomen soft; abdomen nontender Musculoskeletal no cyanosis or clubbing, extremities motor strength 5/5 Skin no rashes, warm and dry Neurologic PERRL, EOMI, accommodation nl, no face palsy, no dysarthria Psychiatric A+Ox3, euthymic affect Discharge Data Allergies Allergy/AdvReac Type Severity Reaction Status Date / Time metoprolol AdvReac Mild Hypertensio Verified 03/18/21 16:34 n tetracycline AdvReac Mild HEADACHE Verified 03/18/21 16:34 Consultations 03/18/21 16:33 ED Decision to Admit Stat Hospital Course (1) Acute respiratory failure with hypoxia: (2) Pneumonia: (3) COPD exacerbation: 66-year-old female with PMH of COPD, history of tobacco abuse, alcohol dependence, CAD s/p stent in 2008, type 2 diabetes, chronic diastolic heart failure, hypothyroidism presented to the ER for worsening shortness of breath and hypoxia for the past few weeks. Admitted on acute hypoxemic respiratory failure secondary to COPD exacerbation CXR on admission with cardiomegaly without radiographic evidence of congestive failure, small pleural effusions with bibasilar airspace opacities, left > right. No leukocytosis with normal procalcitonin We will discontinue antibiotic, given normal procalcitonin Nocturnal pulse oximetry and two-step exercise shows patient requires 2 L oxygen during nighttime and at rest, 3 L with activity Patient is concerned with her chronic oxygen use, and she may not be able to continue her work at [employer] Currently without oxygen, she is high risk for developing respiratory failure, updated patient, She should be followed with a lung specialist/pulmonology, will send message to her primary care physician to schedule As her COPD improves, and with pulmonology help, her oxygen requirement can get less in the future, Will also need a formal lung function test But at present time, patient needs to be on continuous oxygen with above setting, patient voiced understanding Patient discharged on prednisone taper (4) Chronic diastolic (congestive) heart failure: Compensated BNP WNL, no evidence of decompensated heart failure on CXR Continue home dose Lasix 40 mg daily, low-sodium diet (5) Alcohol use: Drinks 3-5 beers every night, cannot remember the last time she did not drink. No sign of symptoms of alcohol withdrawal at present Patient counseled to quit drinking alcohol (6) Diabetes mellitus, type II: Most recent Hemoglobin A1c 6.5 on 03/19/21 Home agents resumed on discharge On insulin/NovoLog sliding scale during hospital stay (7) HLD (hyperlipidemia): Continue statin (8) Hypothyroid: Continue levothyroxine DVT Ppx: SQ Lovenox Code status: FULL PCP: Rachel Disposition Stable to be discharged home today Total Time Total Time Spent Total Time Spent (In Minutes): 35 minutes Total Time Includes: Examination of the Patient, Discharge Planning and Medication Reconciliation Discharge Plan Discharge Items Patient Disposition: Home - Self-Care Reason For Visit: ACUTE HYPOXIC RESP FAILURE, COPD EXACERBATION Discharge Diagnosis: COPD exacerbation Chronic CHF Type 2 diabetes Condition on Discharge: Good Activity: Resume your previous activity Non-emergency contact: Primary Care Provider Call non-emergency contact if: you have any medication questions Follow-up/Referrals: Bipin Ramos MD [Primary Care Provider] - (Date & Time 03/26/2021 3:20 PM Provider Bipin Ramos MD Department [facility] ) Diet: Heart Healthy Add Attending Provider Instructions: Please take all medications as instructed on discharge list below. It is recommended that you follow-up with your primary care physician within 1-2 weeks of hospital discharge to ensure you are still doing well. Please call if you have any questions or problems. You can reach a [facility] hospitalist on duty at [facility] 24 hours a day by calling [phone] [employer]tl Ye[employer] Provider Instructions: Need to follow-up with pulmonology for your chronic lung condition, Continue to use 2 L oxygen during nighttime and at rest, and 3 L during activity Need a formal lung function test/pulmonary function test Pending Studies at Discharge: No Stand-Alone Forms: My [facility], Smoking Cessation Medications and DC Order Prescriptions: New budesonide-formoterol [Symbicort] 80-4.5 mcg/actuation HFA aerosol inhaler 2 inh inhalation BID Qty: 10.2 RF: 3 Spiriva with HandiHaler 18 mcg capsule, w/inhalation device 1 cap inhalation DAILY Qty: 30 RF: 3 prednisone 10 mg tablet 10 mg PO UD Qty: 9 RF: 0 Continued aspirin 81 mg Tablet,Delayed Release (Dr/Ec) 81 mg PO QAM RF: 0 acetaminophen [Tylenol Extra Strength] 500 mg Tablet 1,000 mg PO Q4H PRN (Reason: Pain) RF: 0 carvedilol 3.125 mg tablet 3.125 mg PO BID RF: 0 simvastatin 20 mg tablet 20 mg PO HS RF: 0 levothyroxine 125 mcg tablet 125 mcg PO QAM RF: 0 lisinopril 40 mg tablet 40 mg PO QAM RF: 0 fluticasone propionate [Flonase Allergy Relief] 50 mcg/actuation [place],Suspension 2 spray INTRANASAL QAM PRN (Reason: allergies) RF: 0 loratadine 10 mg Tablet 10 mg PO QAM RF: 0 Combivent Respimat 20-100 mcg/actuation Mist 1 puff INHALATION Q4H PRN (Reason: Wheezing) RF: 0 furosemide [Lasix] 40 mg tablet 40 mg PO QAM Qty: 30 RF: 0 metformin 500 mg tablet 500 mg PO BID RF: 0 amlodipine 2.5 mg tablet 2.5 mg PO DAILY RF: 0 ezetimibe 10 mg tablet 10 mg PO DAILY RF: 0 turmeric 400 mg Capsule 200 mg PO DAILY RF: 0 Black Elderberry 1 tab PO DAILY RF: 0 Discharge Orders: Discharge Order (Routine); Ordered 03/21/21 Ordered By: Sharifa Dickson/Other Patient Handouts: High Blood Sugar (Hyperglycemia), Hypoglycemia (Low Blood Sugar), Managing Type 2 Diabetes, Pulmonary Function Tests, Diagnosing COPD, A1C Admission Data Admit Date/Time: 03/18/21 16:40 Attending Provider: Sharifa Sanderson Admit Provider: Bernadette Odell Primary Care Provider: Bipin Ramos Other Providers: Bernadette Odell
--- NOTE | 2021-04-01 13:23 | Coding Query ---
CODING QUERY To promote full compliance with coding requirements relating to patient care, provider participation is requested in all cases of wholesale loan processor uncertainty. Please assist us with the question(s) below: Coding Question(s): Possible Pneumonia is documented on H&P and Progress Notes and Discharge Summary document Pneumonia and Progress Note 03/19 documents, "No leukocytosis with normal procalcitonin In the ER received IV Solu-Medrol and IV Zosyn We will transition IV Zosyn to Levaquin Will transition to PO steroid", and Progress Note 03/21 and Discharge Summary document, "No leukocytosis with normal procalcitonin We will discontinue antibiotic, given normal procalcitonin" and the Discharge Summary does not list the Pneumonia in the Principal Diagnosis area so it is not clear if possible Pneumonia was ruled-out or was still possible and treated. Please specify below, in your clinical opinion, regarding possible Pneumonia. ( ) Possible Pneumonia was treated during this admission ( x ) Possible Pneumonia was Ruled-Out ( ) Other: Please Specify Physician's Response(s): Thank you Judy Chinchilla Principal Diagnosis: "that condition established after study, to be chiefly responsible for occasioning the admission of the patient to the hospital for care." Co-Existing Principal Diagnosis: "when two or more diagnoses equally meet the criteria for principal diagnosis as determined by the circumstances of admission, diagnostic work up, and/or therapy provided, and the Alphabetic Index, Tabular List, or another coding guideline does not provide sequencing direction, any one of the diagnoses may be sequenced first." "When the physician has documented what appears to be a current diagnosis in the body of the record, but has not included the diagnosis in the final diagnostic statement, the physician should be asked whether the diagnosis should be added." (Source Coding Clinic 2 QTR90. p3-4) ESTEPHANIA
== END 2021-03-21 16:05 | disposition home or self-care (01) | DRG 190 ==
LOC: ED 14:33 → 2S 16:40 → SUATTDRO 16:40 → 2S 19:35

== ENCOUNTER 2022-10-18 12:38 | Inpatient (IN) ==
--- NOTE | 2022-10-18 13:37 | XRay Report ---
XR chest 1V portable HISTORY: 67 years-old Female Sepsis acute shortness breath with hypertension COMPARISON: Chest CT 07/25/2022 TECHNIQUE: AP view of the chest FINDINGS: Cardiac silhouette is enlarged. Pulmonary vascular congestion with interstitial coarsening. Small ple ural effusions with bibasilar consolidation. No pneumothorax. The previously noted suspicious lesion of the right lower lobe is not well visualized. Bones appear grossly intact. IMPRESSION: 1. Cardiomegaly with pulmonary edema. 2. Small pleural effusions with right greater than left bibasilar consolidation. ACT 112: Negative or not required by law. The above report was generated using voice recognition software. It may contain grammatical, syntax o r spelling errors. Electronically signed by: Jon Lieberman M.D. 10/18/2022 1:35 PM
[2022-10-18 13:45] LABS: Basophils # (auto) 0.04 K/uL (0-0.2); Basophils % (auto) 0.4 %; Hematocrit (blood only) 40.9 % (37.0-47.0); Hemoglobin 12.9 g/dl (12.0-16.0); Immature Granulocytes # (auto) 0.06 K/uL (0.01-0.20); Immature Granulocytes % (auto) 0.6 %; Lymphocytes % (auto) 9.2 %; Mean Corpuscular Hemoglobin 31.5 pg (25.0-34.0); Mean Corpuscular Hgb Conc 31.5 g/dL (32.0-36.0); Mean Platelet Volume 10.6 fL (9.4-12.4); Monocytes # (auto) 0.45 K/uL (0.11-0.59); Monocytes % (auto) 4.6 %; Neutrophils # (auto) 8.27 K/uL (1.40-6.50); Neutrophils % (auto) 84.2 %; Platelet Count 229 K/uL (130-400); RDW Coefficient of Variation 14.4 % (11.5-14.5); RDW Standard Deviation 52.3 fL (36.4-46.3); Red Blood Count 4.09 M/uL (4.20-5.40); White Blood Count 9.82 K/ul (4.8-10.8)
[2022-10-18 14:24] LABS: Alanine Aminotransferase 26 U/L (7-52); Albumin Level 4.5 gm/dl (3.4-5.0); Alkaline Phosphatase 91 U/L (34-104); Anion Gap 8 (3-11); BUN Creatinine Ratio 29.2 (10-20); Bilirubin,Total 0.4 mg/dl (0.2-1.0); Blood Urea Nitrogen 21 mg/dl (6-23); Calcium 9.5 mg/dl (8.5-10.1); Carbon Dioxide 32 mmol/L (21-32); Chloride 98 mmol/L (98-107); Est GFR (African American) 101.9 ml/min; Est GFR (Non-African American) 87.9 ml/min; Glucose 108 mg/dl (70-99(Fasting)); Magnesium 1.7 mg/dl (1.7-2.4); Sodium 138 mmol/L (136-145); Total Protein 8.1 gm/dl (6.0-8.3); Troponin I High Sensitivity 7.5 pg/ml (0-14)
[2022-10-18 14:29] LABS: Bilirubin Direct 0.1 mg/dl (0-0.2)
[2022-10-18 14:34] LABS: Base Excess ABG 7.6 mEq/L (-9-1.8); HCO3 ABG 34 mmol/L (19-24); Oxygen Saturation ABG 94.2 % (90-95); PCO2 ABG 55 mmHg (35-46); PO2 ABG 68 mmHg (80-95)
[2022-10-18 14:35] LABS: Aspartate Aminotransferase 19 U/L (13-39)
[2022-10-18 14:35] LABS: Allen Test Pos (Pos)
[2022-10-18] MEDS ORDERED: FUROSEMIDE 40 MG/4 ML VIAL IV ONE (14:41)
[2022-10-18] MEDS: SODIUM CHLORIDE 0.9% 1000ML 1,000 ML IV SCH (14:49)
[2022-10-18] MEDS ORDERED: ALBUTEROL 0.5% NEB SOLN 2.5 MG/0.5 ML VIAL NEB STA (14:50)
--- NOTE | 2022-10-18 14:50 | Emergency Department Note ---
Impression & Plan Hypoxia, CHF (congestive heart failure), Asthma exacerbation in COPD ED Provider Note INFORMANT: Patient ED PROVIDER(S): Mannie Drew DO CHIEF COMPLAINT: Shortness of breath PLAN: Disposition: Admission Condition: Stable Outpatient prescription management: none Referral: I spoke with the hospitalist, who will see the patient for admission/observation and further evaluation and consultation. MEDICAL DECISION MAKING: This is a 67-year-old female who presents to the ED with a chief complaint of shortness of breath. She reports that she has been short of breath for the past 2 to 3 days. She has been taking some extra fluid pills without much improvement. She has a history of COPD and CHF. The patient received a DuoNeb treatment at urgent care and was sent here for further evaluation. Her oxygen saturations were low. She does use total liters of oxygen at home. She reports an increased cough the past couple of days. No changes in her pedal edema. Her symptoms are worse with exertion. The patient is tachypneic on vital signs. She is afebrile. Oxygen saturations were 92% on 6 L. She normally is on 2 L saturating in the 90% range. The patient's chest x-ray suggested pulmonary edema. She may have a right greater than left consolidation. Her CBC did not show leukocytosis. Chemistry panel was unremarkable without electrolyte abnormality. Procalcitonin was negative and troponin was negative. The patient initially was ordered IV fluids as she was felt to be an infectious although this was not started. She was given IV Lasix. She empirically given some IV cefepime for the possibility of pneumonia. She will be seen by the hospitalist for further evaluation and care. Triage Nursing notes reviewed. Vital Signs: reviewed Prior /Outside records reviewed: none Differential diagnosis: Differential includes pneumonia, congestive heart failure, pulmonary edema, COPD exacerbation, other. Diagnostics, as interpreted by me: 12 lead ECG: Normal sinus rhythm at a rate of 70 with T wave inversions anteriorly. No ST elevation. No PVCs. Normal QTC. Cardiac Monitoring ordered: none Medical decision rules: none Imaging studies: Chest x-ray: Pulmonary edema with right greater than left consolidations. Procedures: none. Critical care: none. HPI: See MDM above. PAST MEDICAL HISTORY: See Below PAST SURGICAL HISTORY: See Below SOCIAL HISTORY: See Below HOME MEDICATIONS: See Below ALLERGIES: See Below VITALS: See Below PHYSICAL EXAMINATION: CONSTITUTIONAL/VITAL SIGNS: Reviewed GENERAL: Non-toxic in appearance. INTEGUMENTARY: Warm, dry, and [place]. HEAD: Normocephalic. EYES: without scleral icterus. ENT/OROPHARYNX: clear and moist. RESPIRATORY: No increased work of breathing. Lungs diminished with some basilar crackles. CARDIOVASCULAR: Regular rate. Regular rhythm. GI/ABDOMEN: Soft and nontender. . EXTREMITIES: Normal NEUROLOGICAL: Intact without focal deficits. PSYCHIATRIC: Normal affect. MUSCULOSKELETAL: Normal. TRIAGE NURSING DOCUMENTATION REVIEWED. Past Med/Surg History Medical History Alcohol use CAD (coronary artery disease) Carotid stenosis Chronic diastolic (congestive) heart failure Constipation Diabetes mellitus, type II HLD (hyperlipidemia) Hypothyroid Obesity (BMI 30.0-34.9) Pneumonia Surgical History S/P cholecystectomy Family History (Updated 03/19/22 @ 08:02 by Dixie Hatfield RN) Mother , age 69 Heart disease Rheumatoid arthritis Osteoarthritis Father , age 69 Myocardial infarction Asthma COPD (chronic obstructive pulmonary disease) Sister , age 29 Lung disease Other Diabetes Social History (Updated 03/19/22 @ 08:18 by Dixie Hatfield RN) Smoking Status: Former smoker Tobacco Type: Cigarettes Age Started Using Tobacco: 18; Age Quit Using Tobacco: 60; packs per day: 2; Second Hand Exposure: Yes; Hx Alcohol Use: Yes Alcohol type: beer Alcohol type Comment: 3-5 coors light daily Alcohol Intake Frequency: 4 or More x per/Week Hx Substance Use: No Preferred Language: Maltese Communication Ability: Effective Beliefs That Will Affect Care: None marital status: / Current Living Situation: Alone current occupational status: retired and disabled 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 [employer] How many Children do You have: 3 Feels Safe at Home: Yes caffeine: Yes (Diet pepsi - 4 cans/day) Assistive Devices: None Allergies Allergies Allergy/AdvReac Type Severity Reaction Status Date / Time metoprolol AdvReac Mild Hypertensio Verified 07/29/22 10:46 n tetracycline AdvReac Mild HEADACHE Verified 07/29/22 10:46 Home Meds Home Medications Medication Instructions Recorded Confirmed aspirin 81 mg tablet,delayed 81 mg PO QAM 01/13/19 07/29/22 release carvedilol 3.125 mg tablet 3.125 mg PO BID 01/13/19 07/29/22 lisinopril 40 mg tablet 40 mg PO QAM 01/13/19 07/29/22 Black Elderberry 1 tab PO QAM 03/18/21 07/29/22 amlodipine 2.5 mg tablet 2.5 mg PO QAM 03/18/21 07/29/22 ezetimibe 10 mg tablet 10 mg PO HS 03/18/21 07/29/22 metformin 500 mg tablet 500 mg PO BIDM 03/18/21 07/29/22 turmeric 400 mg capsule 200 mg PO QAM 03/18/21 07/29/22 albuterol sulfate 90 mcg/actuation 2 puff inhalation Q6H PRN 03/19/22 07/29/22 aerosol inhaler (Ventolin HFA) fluticasone propionate 50 2 spray intranasal DAILY 03/19/22 07/29/22 mcg/actuation nasal spray,suspension (Flonase Allergy Relief) levothyroxine 125 mcg tablet 150 mcg PO QAM 03/19/22 07/29/22 pravastatin 20 mg tablet 20 mg PO DAILY 03/19/22 07/29/22 acetaminophen 650 mg 650 mg PO Q8H 04/16/22 07/29/22 tablet,extended release (Tylenol Arthritis Pain) Previous Rx's Medication Instructions Recorded furosemide 40 mg tablet (Lasix) 40 mg PO QAM #30 tabs 01/16/19 budesonide-formoterol HFA 80 2 inh inhalation BID #10.2 grams 03/21/21 mcg-4.5 mcg/actuation aerosol inhaler (Symbicort) tiotropium bromide 18 mcg capsule 1 cap inhalation DAILY #30 09/15/21 with inhalation device (Spiriva inhalations with HandiHaler) Results & Data (ED) Vital Signs Vital Signs - 24 hr 10/18/22 12:42 10/18/22 13:19 10/18/22 13:19 Temperature 36.4 C L Temperature Source Temporal Artery Scan Pulse Rate 77 Pulse Rate [Apical] Pulse Rhythm [Apical] Pulse Strength [Apical] Respiratory Rate 19 Respiratory Effort / Characteristics Labored Respiratory Depth Shallow Respiratory Pattern Tachypnea Blood Pressure 157/67 H Blood Pressure [Right Arm] Blood Pressure Mean 97 Blood Pressure Mean [Right Arm] Pulse Oximetry 83 L Oxygen Delivery Method Nasal Cannula Nasal Cannula Nasal Cannula Oxygen Flow Rate 3 6 6 Sepsis Recent Fever Within 48 Hours No Sepsis New/Unexplained Change in Mental Status N/A Sepsis Action Taken by Nursing No Action Required 10/18/22 13:19 10/18/22 13:19 Temperature Temperature Source Pulse Rate Pulse Rate [Apical] 71 Pulse Rhythm [Apical] Regular Pulse Strength [Apical] Normal Respiratory Rate 28 H Respiratory Effort / Characteristics Labored Respiratory Depth Shallow Respiratory Pattern Tachypnea Blood Pressure Blood Pressure [Right Arm] 113/59 L Blood Pressure Mean Blood Pressure Mean [Right Arm] 77 Pulse Oximetry 91 92 Oxygen Delivery Method Nasal Cannula Nasal Cannula Oxygen Flow Rate 6 6 Sepsis Recent Fever Within 48 Hours Sepsis New/Unexplained Change in Mental Status Sepsis Action Taken by Nursing Laboratory Data 10/18/22 13:25 10/18/22 13:25 Lab Results 10/18/22 10/18/22 10/18/22 Range/Units 13:25 13:25 13:25 WBC 9.82 (4.8-10.8) K/ul RBC 4.09 L (4.20-5.40) M/uL Hgb 12.9 (12.0-16.0) g/dl Hct 40.9 (37.0-47.0) % MCV 100.0 (80.0-100.0) fL MCH 31.5 (25.0-34.0) pg MCHC 31.5 L (32.0-36.0) g/dL RDW Std Deviation 52.3 H (36.4-46.3) fL RDW Coeff of Naa 14.4 (11.5-14.5) % Plt Count 229 (130-400) K/uL MPV 10.6 (9.4-12.4) fL Immature Gran % (Auto) 0.6 % Neut % (Auto) 84.2 % Lymph % (Auto) 9.2 % [place] % (Auto) 4.6 % Eos % (Auto) 1.0 % Baso % (Auto) 0.4 % Neut # (Auto) 8.27 H (1.40-6.50) K/uL Lymph # (Auto) 0.90 L (1.2-3.4) K/uL [place] # (Auto) 0.45 (0.11-0.59) K/uL Eos # (Auto) 0.10 (0-0.50) K/uL Baso # (Auto) 0.04 (0-0.2) K/uL Immature Gran # (Auto) 0.06 (0.01-0.20) K/uL ABG pH (7.35-7.45) ABG pCO2 (35-46) mmHg ABG pO2 (80-95) mmHg ABG HCO3 (19-24) mmol/L ABG O2 Saturation (90-95) % ABG Base Excess (-9-1.8) mEq/L Christian Test (Pos) Oxygen Given Sodium 138 (136-145) mmol/L Potassium 5.0 (3.5-5.1) mmol/L Chloride 98 (98-107) mmol/L Carbon Dioxide 32 (21-32) mmol/L Anion Gap 8 (3-11) BUN 21 (6-23) mg/dl Creatinine 0.72 (0.6-1.2) mg/dl Est Cr Clr Drug Dosing Not Reportable Est GFR ( Amer) 101.9 ml/min Est GFR (Non-Af Amer) 87.9 ml/min BUN/Creatinine Ratio 29.2 H (10-20) Glucose 108 H (70-99(Fasting)) mg/dl Calcium 9.5 (8.5-10.1) mg/dl Magnesium 1.7 (1.7-2.4) mg/dl Total Bilirubin 0.4 (0.2-1.0) mg/dl Direct Bilirubin 0.1 (0-0.2) mg/dl AST 19 (13-39) U/L ALT 26 (7-52) U/L Alkaline Phosphatase 91 (34-104) U/L Troponin I High Sens 7.5 (0-14) pg/ml Total Protein 8.1 (6.0-8.3) gm/dl Albumin 4.5 (3.4-5.0) gm/dl Procalcitonin < 0.05 (0-0.5) ng/ml 10/18/22 Range/Units 14:23 WBC (4.8-10.8) K/ul RBC (4.20-5.40) M/uL Hgb (12.0-16.0) g/dl Hct (37.0-47.0) % MCV (80.0-100.0) fL MCH (25.0-34.0) pg MCHC (32.0-36.0) g/dL RDW Std Deviation (36.4-46.3) fL RDW Coeff of Naa (11.5-14.5) % Plt Count (130-400) K/uL MPV (9.4-12.4) fL Immature Gran % (Auto) % Neut % (Auto) % Lymph % (Auto) % [place] % (Auto) % Eos % (Auto) % Baso % (Auto) % Neut # (Auto) (1.40-6.50) K/uL Lymph # (Auto) (1.2-3.4) K/uL [place] # (Auto) (0.11-0.59) K/uL Eos # (Auto) (0-0.50) K/uL Baso # (Auto) (0-0.2) K/uL Immature Gran # (Auto) (0.01-0.20) K/uL ABG pH 7.40 (7.35-7.45) ABG pCO2 55 H (35-46) mmHg ABG pO2 68 L (80-95) mmHg ABG HCO3 34 H (19-24) mmol/L ABG O2 Saturation 94.2 (90-95) % ABG Base Excess 7.6 H (-9-1.8) mEq/L Christian Test Pos (Pos) Oxygen Given 6L Sodium (136-145) mmol/L Potassium (3.5-5.1) mmol/L Chloride (98-107) mmol/L Carbon Dioxide (21-32) mmol/L Anion Gap (3-11) BUN (6-23) mg/dl Creatinine (0.6-1.2) mg/dl Est Cr Clr Drug Dosing Est GFR ( Amer) ml/min Est GFR (Non-Af Amer) ml/min BUN/Creatinine Ratio (10-20) Glucose (70-99(Fasting)) mg/dl Calcium (8.5-10.1) mg/dl Magnesium (1.7-2.4) mg/dl Total Bilirubin (0.2-1.0) mg/dl Direct Bilirubin (0-0.2) mg/dl AST (13-39) U/L ALT (7-52) U/L Alkaline Phosphatase (34-104) U/L Troponin I High Sens (0-14) pg/ml Total Protein (6.0-8.3) gm/dl Albumin (3.4-5.0) gm/dl Procalcitonin (0-0.5) ng/ml Imaging Data Radiologist's Impression: Chest X-Ray 10/18/22 12:58 XR chest 1V portable HISTORY: 67 years-old Female Sepsis acute shortness breath with hypertension COMPARISON: Chest CT 07/25/2022 TECHNIQUE: AP view of the chest FINDINGS: Cardiac silhouette is enlarged. Pulmonary vascular congestion with interstitial coarsening. Small pleural effusions with bibasilar consolidation. No pneumothorax. The previously noted suspicious lesion of the right lower lobe is not well visualized. Bones appear grossly intact. IMPRESSION: 1. Cardiomegaly with pulmonary edema. 2. Small pleural effusions with right greater than left bibasilar consolidation. ACT 112: Negative or not required by law. The above report was generated using voice recognition software. It may contain grammatical, syntax or spelling errors. Electronically signed by: Jon Lieberman M.D. 10/18/2022 1:35 PM Discharge Plan Visit Data Chief Complaint: Shortness of Breath/Dyspnea Stated Complaint: DYSPNEA, REFERRED BY URGENT CARE ED Provider: Mannie Drew Discharge Problem: Hypoxia, CHF (congestive heart failure), Asthma exacerbation in COPD Forms Stand Alone Forms: My [facility] [employer] Prescriptions Prescriptions: No Action pravastatin 20 mg tablet 20 mg PO DAILY fluticasone propionate [Flonase Allergy Relief] 50 mcg/actuation spray,suspension 2 spray intranasal DAILY Rx Instructions: administer into each nostril albuterol sulfate [Ventolin HFA] 90 mcg/actuation HFA aerosol inhaler 2 puff inhalation Q6H PRN acetaminophen [Tylenol Arthritis Pain] 650 mg tablet extended release 650 mg PO Q8H aspirin 81 mg Tablet,Delayed Release (Dr/Ec) 81 mg PO QAM carvedilol 3.125 mg tablet 3.125 mg PO BID lisinopril 40 mg tablet 40 mg PO QAM furosemide [Lasix] 40 mg tablet 40 mg PO QAM Qty: 30 0RF levothyroxine 125 mcg tablet 150 mcg PO QAM metformin 500 mg tablet 500 mg PO BIDM amlodipine 2.5 mg tablet 2.5 mg PO QAM ezetimibe 10 mg tablet 10 mg PO HS turmeric 400 mg Capsule 200 mg PO QAM Black Elderberry 1 tab PO QAM budesonide-formoterol [Symbicort] 80-4.5 mcg/actuation HFA aerosol inhaler 2 inh inhalation BID Qty: 10.2 3RF Spiriva with HandiHaler 18 mcg capsule, w/inhalation device 1 cap inhalation DAILY Qty: 30 0RF Rx Instructions: puncture 1 cap using device; one dose = 2 inhalations Referrals Referrals: Bipin Ramos MD [Primary Care Provider] -
[2022-10-18] MEDS ORDERED: CEFEPIME 2,000 MG/20 ML VIAL IV STA (14:53)
--- NOTE | 2022-10-18 16:21 | History & Physical Report ---
Date of Service October 18, 2022 Assessment & Plan (1) Acute on chronic respiratory failure with hypoxia: (2) Acute on chronic diastolic CHF (congestive heart failure): (3) COPD, group D, by GOLD 2017 classification: Plan: Admit to [facility] with telemetry Patient presenting from home with reports of worsening shortness of breath and increased O2 requirements for the past 2 to 3 days. In the ED, patient found to be hypoxic at 83% on chronic 2 L of oxygen. Curren tly requiring 6 L of oxygen via nasal cannula. CXR shows cardiomegaly with pulmonary edema and bilateral pleural effusions with bibasilar consolidation. Patient is afebrile, no leukocytosis, negative procalcitonin, no change in sputum Bio fire negative Check proBNP S/p Lasix 40 mg IV in the ED, continue Lasix 40 mg IV daily Update echo Consider cardiology consult Given underlying COPD, will cover empirically with IV ceftriaxone and p.o. doxycycline. Hold on steroids at this time (4) CAD (coronary artery disease): Plan: Appears stable, no reports of chest pain Continue ASA, statin, beta-mike (5) HTN (hypertension): Plan: BP controlled, continue amlodipine, carvedilol, lisinopril (6) Hypothyroid: Plan: Continue levothyroxine (7) BHAVIK on CPAP: Plan: CPAP as per home setting (8) Diabetes mellitus, type II: Plan: Hgb A1c 6.3 01/2022 Hold oral agents and utilize NovoLog per protocol while hospitalized Update A1c with a.m. lab DVT PROPHYLAXIS SQ Lovenox History of Present Illness Chief Complaint: Shortness of breath Primary Care Provider: Bipin Ramos MD 67-year-old female with PMH DM type II, COPD, chronic hypoxic respiratory failure on 2 L of oxygen, BHAVIK on CPAP, lung cancer s/p radiation treatment, CAD with history of NSTEMI in 2009 without stenting, carotid stenosis, and other problems listed below who presents to the ED for evaluation of shortness of breath. Patient reports she has been feeling sick for the past 2 to 3 days. P atient reports she typically wears 2 L of oxygen at rest and 3-4 with activity however has had increased oxygen requirements and also has taken her longer to recover from activity. Patient was seen at urgent care today and was found to have crackles on exam and hypoxia, patient was sent to the ED for further evaluation. Patient reports a minimal cough. No fevers or chills. She denies chest pain and palpitations. No lightheadedness, dizziness, diaphoresis, syncopal events. Patient denies abdominal pain, nausea, vomiting, diarrhea. No urinary symptoms. In the ED, patient was found to be hypoxic at 83% on chronic 2 L of oxygen. Currently requiring 6 L of oxygen via nasal cannula. CXR shows cardiomegaly with pulmonary edema, small bilateral pleural effusions with bibasilar consolidation. Patient is afebrile, no leukocytosis. She was given nebulizer treatment, IV cefepime, IV furosemide. Allergies Allergy/AdvReac Type Severity Reaction Status Date / Time metoprolol AdvReac Mild Hypertensio Verified 10/18/22 16:45 n tetracycline AdvReac Mild HEADACHE Verified 10/18/22 16:45 Home Medications Medication Instructions Recorded Confirmed Type aspirin 81 mg tablet,delayed 81 mg PO QAM 01/13/19 10/18/22 History release carvedilol 3.125 mg tablet 3.125 mg PO BID 01/13/19 10/18/22 History lisinopril 40 mg tablet 40 mg PO QAM 01/13/19 10/18/22 History furosemide 40 mg tablet (Lasix) 40 mg PO QAM #30 tabs 01/16/19 10/18/22 Rx Black Elderberry 1 tab PO QAM 03/18/21 10/18/22 History amlodipine 2.5 mg tablet 2.5 mg PO QAM 03/18/21 10/18/22 History ezetimibe 10 mg tablet 10 mg PO HS 03/18/21 10/18/22 History metformin 500 mg tablet 500 mg PO BIDM 03/18/21 10/18/22 History turmeric 400 mg capsule 200 mg PO QAM 03/18/21 10/18/22 History budesonide-formoterol HFA 80 2 inh inhalation BID #10.2 grams 03/21/21 10/18/22 Rx mcg-4.5 mcg/actuation aerosol inhaler (Symbicort) tiotropium bromide 18 mcg capsule 1 cap inhalation DAILY #30 09/15/21 10/18/22 Rx with inhalation device (Spiriva inhalations with HandiHaler) albuterol sulfate 90 mcg/actuation 2 puff inhalation Q6H PRN 03/19/22 10/18/22 History aerosol inhaler (Ventolin HFA) Shortness Of Breath fluticasone propionate 50 2 spray intranasal DAILY 03/19/22 10/18/22 History mcg/actuation nasal spray,suspension (Flonase Allergy Relief) levothyroxine 125 mcg tablet 150 mcg PO QAM 03/19/22 10/18/22 History pravastatin 20 mg tablet 20 mg PO DAILY 03/19/22 10/18/22 History Past Med/Surg History Medical History (Updated 10/18/22 @ 17:26 by BOAZ Benton) Alcohol use CAD (coronary artery disease) NSTEMI 2008 - moderate nonobstructive disease, no stenting Carotid stenosis Chronic diastolic (congestive) heart failure Chronic respiratory failure with hypoxia Constipation COPD, group D, by GOLD 2017 classification Diabetes mellitus, type II HLD (hyperlipidemia) HTN (hypertension) Hypothyroid Obesity (BMI 30.0-34.9) BHAVIK on CPAP Primary cancer of right lower lobe of lung (01/31/22) s/p radiation Surgical History S/P cholecystectomy Family History Mother , age 69 Heart disease Rheumatoid arthritis Osteoarthritis Father , age 69 Myocardial infarction Asthma COPD (chronic obstructive pulmonary disease) Sister , age 29 Lung disease Other Diabetes Social History Smoking Status: Former smoker Tobacco Type: Cigarettes Age Started Using Tobacco: 18; Age Quit Using Tobacco: 60; packs per day: 2; Second Hand Exposure: No; Do You Dip or Chew Tobacco: No; Tobacco Cessation Education Requested by Patient: No Hx Alcohol Use: Yes Alcohol type: beer Alcohol type Comment: 3-5 coors light daily Alcohol Intake Frequency: 4 or More x per/Week Hx Substance Use: No Preferred Language: Malawian Communication Ability: Effective Cinetechnician Required: No Beliefs That Will Affect Care: None marital status: / Current Living Situation: Alone current occupational status: retired and disabled 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 [employer] How many Children do You have: 3 Other Information That Helps Us Care for You: No Feels Safe at Home: No Is there a partner from a previous relationship who is making you feel unsafe now?: No Any Concerns about Your Family Situation: No Would You Like to Speak to Someone About Your Situation: No Safety Concerns: Feels Safe At This Time caffeine: Yes (Diet pepsi - 4 cans/day) Assistive Devices: Glasses and Nebulizer Review of Systems Review of Systems: ROS per HPI, all other systems reviewed and negative Physical Exam Constitutional: WD/WN, vitals as above Eyes: PERRL, conjunctivae normal, anicteric sclerae ENMT: external ear and nose normal, oropharynx normal Respiratory: normal respiratory effort; no respiratory distress Auscultation: + diminished lung sounds Cardiovascular: Rate/Rhythm: regular rate and regular rhythm Vessels: normal peripheral pulses Extremities: + edema (+1 edema BLE) Gastrointestinal (Abdomen): normal bowel sounds, soft, nontender, no hepatosplenomegaly Musculoskeletal: no cyanosis or clubbing, extremities motor strength 5/5 Skin: no rashes, warm and dry Neurologic: PERRL, EOMI, accommodation nl, no face palsy, no dysarthria Psychiatric: A+Ox3, euthymic affect Results & Data Results & Data ([facility]) Vital Signs (Past 12 Hours) Vital Signs Temp Pulse Pulse Resp BP BP Pulse Ox 10/18/22 16:00 65 17 95 10/18/22 15:50 70 18 95 10/18/22 15:40 66 18 95 10/18/22 15:31 76 30 H 10/18/22 15:20 72 25 H 93 10/18/22 15:10 66 17 94 10/18/22 15:00 67 19 95 10/18/22 15:00 97/60 L 10/18/22 14:50 65 23 10/18/22 14:40 68 15 10/18/22 14:30 67 16 10/18/22 14:30 111/70 10/18/22 14:20 67 26 H 10/18/22 14:10 72 15 10/18/22 14:00 66 17 10/18/22 14:00 103/48 L 10/18/22 13:50 72 19 10/18/22 13:40 72 14 92 10/18/22 13:30 70 16 93 10/18/22 13:30 103/58 L 10/18/22 13:20 82 34 H 94 10/18/22 13:19 92 10/18/22 13:19 71 28 H 113/59 L 91 10/18/22 13:19 10/18/22 13:19 10/18/22 12:42 36.4 C L 77 19 157/67 H 83 L O2 Del Method O2 Flow Rate 10/18/22 16:00 10/18/22 15:50 10/18/22 15:40 10/18/22 15:31 10/18/22 15:20 10/18/22 15:10 10/18/22 15:00 10/18/22 15:00 10/18/22 14:50 10/18/22 14:40 10/18/22 14:30 10/18/22 14:30 10/18/22 14:20 10/18/22 14:10 10/18/22 14:00 10/18/22 14:00 10/18/22 13:50 10/18/22 13:40 10/18/22 13:30 10/18/22 13:30 10/18/22 13:20 10/18/22 13:19 Nasal Cannula 6 10/18/22 13:19 Nasal Cannula 6 10/18/22 13:19 Nasal Cannula 6 10/18/22 13:19 Nasal Cannula 6 10/18/22 12:42 Nasal Cannula 3 Laboratory Results Short CBC 10/18/22 Range/Units 13:25 WBC 9.82 (4.8-10.8) K/ul Hgb 12.9 (12.0-16.0) g/dl Hct 40.9 (37.0-47.0) % Plt Count 229 (130-400) K/uL BMP 10/18/22 13:25 Sodium 138 Potassium 5.0 Chloride 98 Carbon Dioxide 32 BUN 21 Creatinine 0.72 Glucose 108 H Calcium 9.5 Liver Function 10/18/22 Range/Units 13:25 Total Bilirubin 0.4 (0.2-1.0) mg/dl Direct Bilirubin 0.1 (0-0.2) mg/dl AST 19 (13-39) U/L ALT 26 (7-52) U/L Alkaline Phosphatase 91 (34-104) U/L Albumin 4.5 (3.4-5.0) gm/dl Diagnostic Findings Chest X-Ray 10/18/22 12:58 XR chest 1V portable HISTORY: 67 years-old Female Sepsis acute shortness breath with hypertension COMPARISON: Chest CT 07/25/2022 TECHNIQUE: AP view of the chest FINDINGS: Cardiac silhouette is enlarged. Pulmonary vascular congestion with interstitial coarsening. Small pleural effusions with bibasilar consolidation. No pneumothorax. The previously noted suspicious lesion of the right lower lobe is not well visualized. Bones appear grossly intact. IMPRESSION: 1. Cardiomegaly with pulmonary edema. 2. Small pleural effusions with right greater than left bibasilar consolidation. ACT 112: Negative or not required by law. The above report was generated using voice recognition software. It may contain grammatical, syntax or spelling errors. Electronically signed by: Jon Lieberman M.D. 10/18/2022 1:35 PM Code Status & VTE Plan Code Status Patient is a full code as per my discussion with her. VTE Prophylaxis Plan VTE Prophylaxis will be ordered: Yes Supervising Physician Co-Signing Physician Notes Attending addendum The patient was seen and examined in the emergency room in presence of the daughter He has been complaining of more shortness of breath for the last 2 to 3 days No chest pain and/or palpitation No cough and or wheezing Denies any fever and or chills and denies any weight gain On examination Sitting at the edge of the bed without any apparent distress Hemodynamically stable Chest-decreased breath sounds bilaterally with minimal crackles at the bases Heart-S1-S2, regular Abdomen-benign Extremities-trace edema bilaterally Her admission labs, EKG and imaging studies reviewed Likely has acute on chronic heart failure Doubt any COPD exacerbation but may have bronchitis Agree with assessment and plan as outlined above by Mayra Elkins
[2022-10-18 17:14] LABS: Adenovirus PCR Not Detected (NotDetected); Bordetella parapertussis PCR Not Detected (NotDetected); Bordetella pertussis PCR Not Detected (NotDetected); Chlamydia pneumoniae PCR Not Detected (NotDetected); Coronavirus 229E PCR Not Detected (NotDetected); Coronavirus CoV-2 (COVID19)PCR Not Detected (NotDetected); Coronavirus HKU1 PCR Not Detected (NotDetected); Coronavirus NL63 PCR Not Detected (NotDetected); Coronavirus OC43PCR Not Detected (NotDetected); Human Metapneumovirus PCR Not Detected (NotDetected); Influenza A PCR Not Detected (NotDetected); Influenza B PCR Not Detected (NotDetected); Mycoplasma pneumoniae PCR Not Detected (NotDetected); Parainfluenza Virus 1 PCR Not Detected (NotDetected); Parainfluenza Virus 2 PCR Not Detected (NotDetected); Parainfluenza Virus 3 PCR Not Detected (NotDetected); Parainfluenza Virus 4 PCR Not Detected (NotDetected); Respiratory Syncytial VirusPCR Not Detected (NotDetected); Rhinovirus/Enterovirus PCR Not Detected (NotDetected)
[2022-10-18] MEDS ORDERED: DEXTROSE 50% 50 ML SYRINGE IV PRN (20:06)
[2022-10-18] MEDS ORDERED: ALBUT/IPRATROP 3MG/0.5MG NEB 3 ML VIAL NEB PRN (20:06)
[2022-10-18] MEDS ORDERED: GLUCAGON FOR INJ 1 MG VIAL SQ PRN (20:06)
[2022-10-18] MEDS ORDERED: GLUCOSE 10 TAB/TUBE PO PRN (20:06)
[2022-10-18] MEDS ORDERED: GLUCOSE 40% GEL 15 GM TUBE PO PRN (20:06)
[2022-10-18] MEDS ORDERED: CARBOHYDRATES FOR HYPOGLYCEMIA PO PRN (20:06)
[2022-10-18] MEDS: EZETIMIBE 10 MG TABLET PO SCH (23:29)
[2022-10-18] MEDS: DOXYCYCLINE HYCLATE 100 MG CAP PO SCH (23:30)
[2022-10-18] MEDS: carvediloL 3.125 MG TAB PO SCH (23:33)
[2022-10-18] MEDS: INSULIN ASPART PER UNIT SC SCH (23:34)
[2022-10-18 23:49] LABS: Appearance Urine Cloudy (Clear); Bacteria Urine Automated Negative (Negative); Bilirubin Urine Negative (Negative); Blood Urine Negative (Negative); Color Urine Yellow; Epithelial Cell Urine Auto >30 /lpf (0-5); Glucose Urine UA Negative (Negative); Ketones Urine Trace (Negative); Leukocyte Esterase Urine 1+ (Negative); Nitrite Urine Negative (Negative); Protein Urine Trace (Negative); RBC Urine Automated 0-4 /hpf (0-4); Specific Gravity Urine 1.019 (1.000-1.030); Urobilinogen Urine Negative (Negative)
[2022-10-19] MEDS: cefTRIAXone SODIUM 1,000 MG in DEXTROSE 5% AD-VAN 50 ML IV SCH ×2 (00:52→21:30)
[2022-10-19] MEDS: ENOXAPARIN INJ 40 MG/0.4 ML SYR SQ SCH ×3 (00:52→21:33)
[2022-10-19] MEDS: LEVOTHYROXINE SODIUM 150 MCG TABLET PO SCH (06:30)
[2022-10-19 06:55] LABS: Hematocrit (blood only) 38.7 % (37.0-47.0); Mean Corpuscular Hemoglobin 31.1 pg (25.0-34.0); Mean Corpuscular Volume 100.3 fL (80.0-100.0); Mean Platelet Volume 10.5 fL (9.4-12.4); Platelet Count 225 K/uL (130-400); RDW Coefficient of Variation 14.4 % (11.5-14.5); RDW Standard Deviation 53.2 fL (36.4-46.3); Red Blood Count 3.86 M/uL (4.20-5.40); White Blood Count 10.54 K/ul (4.8-10.8)
[2022-10-19 07:32] LABS: BUN Creatinine Ratio 29.9 (10-20); Calcium 9.4 mg/dl (8.5-10.1); Creatinine Clr Calc Pharmacy 62.9 ml/min; Est GFR (Non-African American) 61.3 ml/min; Potassium 4.6 mmol/L (3.5-5.1)
[2022-10-19] MEDS: ACETAMINOPHEN 325 MG TAB PO PRN (08:05)
[2022-10-19] MEDS: INSULIN ASPART PER UNIT SC SCH ×4 (08:05→21:18)
[2022-10-19] MEDS: UMECLIDINIUM BROMIDE 62.5MCG/BLISTER 7 PUFFS/INHALER INH SCH (08:08)
[2022-10-19] MEDS: FLUTICASONE/VILANTEROL 100/25MCG 14 PUFFS/INHALER INH SCH (08:08)
[2022-10-19] MEDS: PRAVASTATIN SOD 20 MG TAB PO SCH (08:09)
[2022-10-19] MEDS: DOXYCYCLINE HYCLATE 100 MG CAP PO SCH ×2 (08:09→21:30)
[2022-10-19] MEDS: carvediloL 3.125 MG TAB PO SCH ×2 (08:09→21:22)
[2022-10-19] MEDS: amLODIPine BESYLATE 5 MG TAB PO SCH (08:09)
[2022-10-19] MEDS: ASPIRIN 81 MG ECTAB PO SCH (08:09)
[2022-10-19] MEDS: lisinopril 40 MG TAB PO SCH (08:10)
[2022-10-19 09:00] LABS: D Dimer 7310 ug/L FEU (0-500)
[2022-10-19] MEDS ORDERED: FUROSEMIDE 40 MG/4 ML VIAL IV SCH (09:00)
--- NOTE | 2022-10-19 10:33 | Electrocardiogram Report ---
Test Reason : Blood Pressure : / mmHG Vent. Rate : 071 BPM Atrial Rate : 071 BPM P-R Int : 136 ms QRS Dur : 084 ms QT Int : 400 ms P-R-T Axes : 053 032 020 degrees QTc Int : 434 ms Normal sinus rhythm Possible Left atrial enlargement T wave abnormality, consider anterior ischemia Abnormal ECG When compared with ECG of 15-SEP-2021 10:48, No significant change was found Confirmed by Dillon Ames ([id number]) on 10/19/2022 10:33:22 AM Referred By: REFERRED SELF Confirmed By:Dillon Ames
[2022-10-19] MEDS ORDERED: OPTIRAY 320 500ml IV ONE (11:04)
--- NOTE | 2022-10-19 11:33 | CT Scan Report ---
CT ANGIOGRAM OF THE CHEST CLINICAL HISTORY: Dyspnea. COMPARISON STUDY: Prior chest CT scans, most recently dated 07/25/2022 TECHNIQUE: Following the IV administration of 120 cc of Optiray 320, CT angiogram of the chest is per formed from the upper abdomen to the thoracic inlet using the pulmonary embolus protocol. 3-D MIPS im ages are created and assessed. Images are reviewed in the axial, sagittal, and coronal planes. IV con trast was administered without complication. A dose lowering technique was utilized adhering to the principles of ALARA. CT DOSE: 854.30 mGy.cm FINDINGS: Thyroid: Imaged portions of the thyroid gland are normal in size and attenuation. Thoracic aorta: There is atherosclerotic calcification of the thoracic aorta, which is normal in tesha anais and demonstrates 4-vessel variant arch anatomy. No dissection is seen. Pulmonary vasculature: The main pulmonary arteries are dilated suggesting pulmonary artery hypertensi on. There are no filling defects identified in the main, lobar, or segmental pulmonary arteries to in dicate pulmonary embolus. Heart: The heart is enlarged and without pericardial effusion. The coronary arteries are densely calc ified. Lungs and pleural spaces: Emphysematous change is noted. Diffuse intralobular septal thickening sugge sts congestive failure. There is a small to moderate right pleural effusion with right basilar consol idation. This largely obscures the patient's known right lower lobe lesion. A 7 mm pleural-based nodu le in the lingula on image #106 is unchanged. No new pulmonary lesion is identified. Subsegmental ate lectasis is noted at the left lung base. Mediastinum: There are numerous mildly enlarged mediastinal lymph nodes. A right paratracheal node on image #169 measures 18 mm in short axis. A pretracheal node on image #183 measures 12 mm in short ax is. A prevascular node on image #158 measures 10 mm short axis. Hermila: There is right hilar adenopathy. These nodes measure up to 14 mm in short axis. Axillae: There is no axillary lymphadenopathy. Upper abdomen: The liver appears enlarged and stable ptotic. There is a tiny hiatal hernia. A mildly enlarged gastrohepatic node on image #12 measures 11 mm in short axis. Skeletal structures: The skeletal structures are osteopenic. There are tiny osteoblastic lesions. The largest lesion is in the body of T10 on image #90 and measures 9 mm. Additional smaller lesions are seen in the body of T7 on image #141 and the body of T4 on image #206. There the also be a tiny lesio n in the body of the sternum as seen on image #133. IMPRESSION: 1. There is no evidence of pulmonary embolus in the main, lobar, or segmental pulmonary arteries. 2. Cardiomegaly and emphysema with evidence of fluid overload/congestive failure. 3. There is a small to moderate right pleural effusion with right basilar consolidation. This could r epresent atelectasis versus pneumonia/aspiration pneumonitis. Clinical correlation will be required a nd radiographic follow-up to resolution is recommended. 4. Right lower lobe consolidation largely obscures the patient's known right lower lobe pulmonary les ion. 5. Mediastinal and hilar lymph nodes are nonspecific and likely similar to previous. These could be r eactive and/or neoplastic. 6. There are subtle osteoblastic lesions identified in the thoracic spine which were not present on o lder examinations. These are suspicious for metastases. 7. There is a pathologically enlarged gastrohepatic node seen in the upper abdomen. 8. A subpleural nodule in the lingula is unchanged from prior examinations. 9. Additional findings as above. ACT 112: Negative or not required by law. Electronically signed by: Aris Cobian M.D. 10/19/2022 11:31 AM
--- NOTE | 2022-10-19 13:21 | Hospitalist Progress Note ---
Date of Service October 19, 2022 Assessment & Plan (1) Acute on chronic respiratory failure with hypoxia: (2) Acute on chronic diastolic CHF (congestive heart failure): (3) COPD, group D, by GOLD 2017 classification: Plan: Admitted to [facility] telemetry and is transferred to telemetry unit Patient presenting from home with reports of worsening shortness of breath and increased O2 requirements for the past 2 to 3 days. In the ED, patient found to be hypoxic at 83% on chronic 2 L of oxygen. Currently requiring 6 L of oxygen via nasal cannula. CXR shows cardiomegaly with pulmonary edema and bilateral pleural effusions with bibasilar consolidation. Patient is afebrile, no leukocytosis, negative procalcitonin, no change in sputum Bio fire negative Check proBNP-normal S/p Lasix 40 mg IV in the ED, continue Lasix 40 mg IV daily Update echo-not done yet Consider cardiology consult Given underlying COPD, will cover empirically with IV ceftriaxone and p.o. doxycycline. Hold on steroids at this time CT did not show [id number] right pleural effusion with right basilar consolidation suggestive of pneumonia/pneumonitis We will continue current antibiotic Short duration of shortness of breath History of CT of the lung D-dimer is highly elevated likely secondary to history of cancer CTA did not show any pulmonary embolism Showed 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 and pathologically enlarged gastrohepatic node Will need to have a follow-up with oncologist following discharge (4) CAD (coronary artery disease): Plan: Appears stable, no reports of chest pain Continue ASA, statin, beta-mike No acute cardiac symptoms (5) HTN (hypertension): Plan: BP controlled, continue amlodipine, carvedilol, lisinopril (6) Hypothyroid: Plan: Continue levothyroxine (7) BHAVIK on CPAP: Plan: CPAP as per home setting (8) Diabetes mellitus, type II: Plan: Hgb A1c 6.3 01/2022 Hold oral agents and utilize NovoLog per protocol while hospitalized Update A1c with a.m. lab DVT PROPHYLAXIS SQ Lovenox Admission and Anticipated Discharge Date Admission Date: October 18, 2022 Subjective 10/19/2022 The patient was seen and examined in medical telemetry unit She has been feeling a little better Denies any wheezing and has minimal shortness of breath at rest No chest pain and/or palpitation Review of Systems Review of Systems: All systems reviewed and are unremarkable except as noted below Respiratory: Minimal shortness of breath at rest Cardiovascular: Additional Comments: No palpitation Gastrointestinal: No nausea and or vomiting Neurologic: Generally weak Physical Exam Physical Exam: Sitting at the edge of the bed without any acute distress Constitutional: well developed, well nourished, + ill appearing and + obese Eyes: PERRL, conjunctivae normal, anicteric sclerae ENMT: external ear and nose normal, oropharynx normal Neck: trachea midline, no thyromegaly Respiratory: + respiratory distress (Minimal distress at rest); no labored breathing Auscultation: + diminished lung sounds and + crackles (Minimal bibasilar crackles) Cardiovascular: Rate/Rhythm: regular rate and regular rhythm; not tachycardic Heart Sounds: normal S1 and normal S2; no murmur Extremities: + edema (1+ edema bilaterally) Gastrointestinal (Abdomen): Inspection/Auscultation: normal bowel sounds; abdomen not distended Percussion/Palpation: abdomen soft; abdomen nontender Musculoskeletal: No acute arthritis involving any of the joints Neurologic: Alert, awake and oriented x3. Generally weak but no focal sensory or no motor deficit appreciated Lymphatic: no cervical or axillary lymphadenopathy Results & Data Results & Data ([facility]) Vital Signs (Past 12 Hours) Vital Signs Temp Pulse Pulse Resp BP Pulse Ox O2 Del Method 10/19/22 12:48 60 92 Nasal Cannula 10/19/22 11:51 36.8 C 64 20 112/63 90 Nasal Cannula 10/19/22 08:00 93 Nasal Cannula 10/19/22 08:00 Nasal Cannula 10/19/22 07:22 36.6 C 63 20 100/64 92 Nasal Cannula 10/19/22 06:01 63 10/19/22 02:38 36.6 C 66 18 102/62 90 Nasal Cannula O2 Flow Rate 10/19/22 12:48 6 10/19/22 11:51 6 10/19/22 08:00 6 10/19/22 08:00 6 10/19/22 07:22 6 10/19/22 06:01 10/19/22 02:38 6 Laboratory Results Short CBC 10/18/22 10/19/22 Range/Units 13:25 06:14 WBC 9.82 10.54 (4.8-10.8) K/ul Hgb 12.9 12.0 (12.0-16.0) g/dl Hct 40.9 38.7 (37.0-47.0) % Plt Count 229 225 (130-400) K/uL BMP 10/18/22 10/19/22 13:25 06:14 Sodium 138 137 Potassium 5.0 4.6 Chloride 98 99 Carbon Dioxide 32 35 H BUN 21 29 H Creatinine 0.72 0.97 Glucose 108 H 101 H Calcium 9.5 9.4 Liver Function 10/18/22 Range/Units 13:25 Total Bilirubin 0.4 (0.2-1.0) mg/dl Direct Bilirubin 0.1 (0-0.2) mg/dl AST 19 (13-39) U/L ALT 26 (7-52) U/L Alkaline Phosphatase 91 (34-104) U/L Albumin 4.5 (3.4-5.0) gm/dl Urine 10/18/22 Range/Units 23:15 Urine Color Yellow Urine Appearance Cloudy A (Clear) Urine pH 5.0 (4.5-7.5) Ur Specific Hale 1.019 (1.000-1.030) Urine Protein Trace H (Negative) Urine Glucose (UA) Negative (Negative) Medications Administered Current Inpatient Medications Acetaminophen (Acetaminophen 325 Mg Tab) 650 mg PO Q4H PRN PRN Reason: Pain or Fever Stop: 11/17/22 20:05 Last Admin: 10/19/22 08:05 Dose: 650 mg Albuterol (Albut/Ipratrop 3mg/0.5mg Neb 3 Ml Vial) 3 ml NEB Q4R PRN; Protocol PRN Reason: Shortness Of Breath Or Wheezing Stop: 11/17/22 20:05 Amlodipine Besylate (Amlodipine Besylate 5 Mg Tab) [facility] [place] [place] Stop: 11/18/22 08:59 Last Admin: 10/19/22 08:09 Dose: 2.5 mg Aspirin (Aspirin 81 Mg Ectab) 81 mg PO QAM [facility] Stop: 11/18/22 08:59 Last Admin: 10/19/22 08:09 Dose: 81 mg Carvedilol (Carvedilol 3.125 Mg Tab) 3.125 mg PO BID [facility] Stop: 11/17/22 20:59 Last Admin: 10/19/22 08:09 Dose: 3.125 mg Dextrose (Dextrose 50% 50 Ml Syringe) 25 - 50 ml IV UD PRN; Protocol PRN Reason: Hypoglycemia Protocol Stop: 11/17/22 20:05 Doxycycline Hyclate (Doxycycline Hyclate 100 Mg Cap) 100 mg PO BID [facility] Stop: 10/25/22 20:59 Last Admin: 10/19/22 08:09 Dose: 100 mg Ezetimibe (Ezetimibe 10 Mg Tablet) 10 mg PO HS [facility] Stop: 11/17/22 20:59 Last Admin: 10/18/22 23:29 Dose: 10 mg Enoxaparin Sodium (Enoxaparin Inj 40 Mg/0.4 Ml Syr) 40 mg SQ Q24H [facility] Stop: 11/17/22 20:59 Last Admin: 10/19/22 00:52 Dose: Not Given Fluticasone/Vilanterol (Fluticasone/Vilanterol 100/25mcg 14 Puffs/Inhaler) 1 puffs INH DAILY [facility] Stop: 11/18/22 08:59 Last Admin: 10/19/22 08:08 Dose: 1 puffs Furosemide (Furosemide 40 Mg/4 Ml Vial) 40 mg IV DAILY [facility] Stop: 11/18/22 08:59 Last Admin: 10/19/22 08:10 Dose: 40 mg Glucagon (Glucagon For Inj 1 Mg Vial) 1 mg SQ UD PRN; Protocol PRN Reason: Hypoglycemia Protocol Stop: 11/17/22 20:05 Glucose (Glucose 40% Gel 15 Gm Tube) 15 - 30 gm PO UD PRN; Protocol PRN Reason: Hypoglycemia Protocol Stop: 11/17/22 20:05 Glucose (Glucose 10 Tab/Tube) 4 - 8 tab PO UD PRN; Protocol PRN Reason: Hypoglycemia Treatment Stop: 11/17/22 20:05 Ceftriaxone Sodium 1,000 mg/ (Dextrose) 50 mls @ 100 mls/hr IV Q24H [facility]; Protocol Stop: 10/25/22 20:59 Last Infusion: 10/19/22 02:19 Dose: Infused Insulin Aspart (Insulin Aspart Per Unit) 0 units SC ACHS [facility] Stop: 11/17/22 20:59 Last Admin: 10/19/22 11:57 Dose: 3 units Levothyroxine Sodium (Levothyroxine Sodium 150 Mcg Tablet) 150 mcg PO DAILYBB [facility] Stop: 11/18/22 06:29 Last Admin: 10/19/22 06:30 Dose: 150 mcg Lisinopril (Lisinopril 40 Mg Tab) 40 mg PO QAM [facility] Stop: 11/18/22 08:59 Last Admin: 10/19/22 08:10 Dose: 40 mg Miscellaneous (Carbohydrates For Hypoglycemia ) 15 - 30 gm PO UD PRN PRN Reason: Hypoglycemia Protocol Stop: 11/17/22 20:05 Pravastatin Sodium (Pravastatin Sod 20 Mg Tab) 20 mg PO DAILY [facility] Stop: 11/18/22 08:59 Last Admin: 10/19/22 08:09 Dose: 20 mg Umeclidinium Diamond (Umeclidinium Diamond 62.5mcg/Blister 7 Puffs/Inhaler) 1 puffs INH DAILY [facility] Stop: 11/18/22 08:59 Last Admin: 10/19/22 08:08 Dose: 1 puffs
[2022-10-19] MEDS ORDERED: SODIUM CHLORIDE 0.9% 1000ML 1,000 ML IV SCH (13:30)
[2022-10-19] MEDS: EZETIMIBE 10 MG TABLET PO SCH (21:31)
[2022-10-20 07:06] LABS: Basophils # (auto) 0.06 K/uL (0-0.2); Basophils % (auto) 0.7 %; Eosinophils # (auto) 0.16 K/uL (0-0.50); Eosinophils % (auto) 1.9 %; Hematocrit (blood only) 39.7 % (37.0-47.0); Hemoglobin 11.8 g/dl (12.0-16.0); Immature Granulocytes # (auto) 0.04 K/uL (0.01-0.20); Immature Granulocytes % (auto) 0.5 %; Lymphocytes # (auto) 0.82 K/uL (1.2-3.4); Lymphocytes % (auto) 9.8 %; Mean Corpuscular Hemoglobin 30.7 pg (25.0-34.0); Mean Corpuscular Hgb Conc 29.7 g/dL (32.0-36.0); Mean Corpuscular Volume 103.4 fL (80.0-100.0); Mean Platelet Volume 10.3 fL (9.4-12.4); Monocytes # (auto) 0.59 K/uL (0.11-0.59); Monocytes % (auto) 7.1 %; Neutrophils # (auto) 6.68 K/uL (1.40-6.50); Platelet Count 210 K/uL (130-400); RDW Coefficient of Variation 14.6 % (11.5-14.5); RDW Standard Deviation 55.8 fL (36.4-46.3); Red Blood Count 3.84 M/uL (4.20-5.40); White Blood Count 8.35 K/ul (4.8-10.8)
[2022-10-20] MEDS: LEVOTHYROXINE SODIUM 150 MCG TABLET PO SCH (07:19)
[2022-10-20 07:22] LABS: BUN Creatinine Ratio 34.7 (10-20); Calcium 9.1 mg/dl (8.5-10.1); Creatinine Clr Calc Pharmacy 65.4 ml/min; Est GFR (African American) 72.8 ml/min; Est GFR (Non-African American) 62.9 ml/min; Potassium 4.7 mmol/L (3.5-5.1)
[2022-10-20 07:34] LABS: Estimated Average Glucose 126 mg/dl
[2022-10-20] MEDS: ASPIRIN 81 MG ECTAB PO SCH (08:02)
[2022-10-20] MEDS: FLUTICASONE/VILANTEROL 100/25MCG 14 PUFFS/INHALER INH SCH (08:02)
[2022-10-20] MEDS: UMECLIDINIUM BROMIDE 62.5MCG/BLISTER 7 PUFFS/INHALER INH SCH (08:02)
[2022-10-20] MEDS: PRAVASTATIN SOD 20 MG TAB PO SCH (08:03)
[2022-10-20] MEDS: DOXYCYCLINE HYCLATE 100 MG CAP PO SCH ×2 (08:03→20:41)
[2022-10-20] MEDS: INSULIN ASPART PER UNIT SC SCH ×4 (08:08→20:51)
[2022-10-20] MEDS: carvediloL 3.125 MG TAB PO SCH ×2 (08:15→20:46)
[2022-10-20] MEDS: amLODIPine BESYLATE 5 MG TAB PO SCH (08:15)
[2022-10-20] MEDS: lisinopril 40 MG TAB PO SCH (08:19)
--- NOTE | 2022-10-20 16:00 | Hospitalist Progress Note ---
Date of Service October 20, 2022 Assessment & Plan (1) Acute on chronic respiratory failure with hypoxia: (2) Acute on chronic diastolic CHF (congestive heart failure): (3) COPD, group D, by GOLD 2017 classification: Plan: Admitted to [facility] telemetry and is transferred to telemetry unit Patient presenting from home with reports of worsening shortness of breath and increased O2 requirements for the past 2 to 3 days. In the ED, patient found to be hypoxic at 83% on chronic 2 L of oxygen. Currently requiring 6 L of oxygen via nasal cannula. CXR shows cardiomegaly with pulmonary edema and bilateral pleural effusions with bibasilar consolidation. Patient is afebrile, no leukocytosis, negative procalcitonin, no change in sputum Bio fire negative Check proBNP-normal S/p Lasix 40 mg IV in the ED, continue Lasix 40 mg IV daily Update echo-not done yet Consider cardiology consult Given underlying COPD, will cover empirically with IV ceftriaxone and p.o. doxycycline. 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 and pathologically enlarged gastrohepatic node Will need to have a follow-up with oncologist following discharge Likely discharge tomorrow (4) CAD (coronary artery disease): Plan: Appears stable, no reports of chest pain Continue ASA, statin, beta-mike No acute cardiac symptoms (5) HTN (hypertension): Plan: BP controlled, continue amlodipine, carvedilol, lisinopril Blood pressure is controlled with current medications (6) Hypothyroid: Plan: Continue levothyroxine (7) BHAVIK on CPAP: Plan: CPAP as per home setting (8) Diabetes mellitus, type II: Plan: Hgb A1c 6.3 01/2022 Hold oral agents and utilize NovoLog per protocol while hospitalized Update A1c with a.m. lab-6.0 T. bili elevated DVT PROPHYLAXIS SQ Lovenox Admission and Anticipated Discharge Date Admission Date: October 18, 2022 Subjective 10/19/2022 The patient was seen and examined in medical telemetry unit She has been feeling a little better Denies any wheezing and has minimal shortness of breath at rest No chest pain and/or palpitation 10/20/2022 The patient was seen and examined in medical telemetry unit She has been feeling much better but not yet ready to be discharged Still requiring considerable amount of oxygen to maintain saturation Review of Systems Review of Systems: All systems reviewed and are unremarkable except as noted below Respiratory: Minimal shortness of breath at rest Cardiovascular: Additional Comments: No palpitation Gastrointestinal: No nausea and or vomiting Neurologic: Generally weak Physical Exam Physical Exam: Sitting at the edge of the bed without any acute distress Constitutional: well developed, well nourished, + ill appearing and + obese Eyes: PERRL, conjunctivae normal, anicteric sclerae ENMT: external ear and nose normal, oropharynx normal Neck: trachea midline, no thyromegaly Respiratory: + respiratory distress (Minimal distress at rest); no labored breathing Auscultation: + diminished lung sounds and + crackles (Minimal bibasilar crackles) Cardiovascular: Rate/Rhythm: regular rate and regular rhythm; not tachycardic Heart Sounds: normal S1 and normal S2; no murmur Extremities: + edema (1+ edema bilaterally) Gastrointestinal (Abdomen): Inspection/Auscultation: normal bowel sounds; abdomen not distended Percussion/Palpation: abdomen soft; abdomen nontender Musculoskeletal: No acute arthritis involving any joint Neurologic: Alert, awake and oriented x3. No focal sensory or motor deficit appreciated Lymphatic: no cervical or axillary lymphadenopathy Results & Data Results & Data ([facility]) Vital Signs (Past 12 Hours) Vital Signs Temp Pulse Pulse Resp BP Pulse Ox O2 Del Method 10/20/22 14:14 70 10/20/22 12:08 36.5 C 66 16 117/76 96 Nasal Cannula 10/20/22 08:20 63 10/20/22 08:13 36.4 C L 57 L 16 104/67 98 Nasal Cannula 10/20/22 07:51 Nasal Cannula 10/20/22 05:59 63 O2 Flow Rate 10/20/22 14:14 10/20/22 12:08 10/20/22 08:20 10/20/22 08:13 6 10/20/22 07:51 6 10/20/22 05:59 Laboratory Results Short CBC 10/20/22 Range/Units 06:19 WBC 8.35 (4.8-10.8) K/ul Hgb 11.8 L (12.0-16.0) g/dl Hct 39.7 (37.0-47.0) % Plt Count 210 (130-400) K/uL [facility] 10/20/22 06:19 Sodium 135 L Potassium 4.7 Chloride 99 Carbon Dioxide 33 H BUN 33 H Creatinine 0.95 Glucose 107 H Calcium 9.1 Medications Administered Current Inpatient Medications Acetaminophen (Acetaminophen 325 Mg Tab) 650 mg PO Q4H PRN PRN Reason: Pain or Fever Stop: 11/17/22 20:05 Last Admin: 10/19/22 08:05 Dose: 650 mg Albuterol (Albut/Ipratrop 3mg/0.5mg Neb 3 Ml Vial) 3 ml NEB Q4R PRN; Protocol PRN Reason: Shortness Of Breath Or Wheezing Stop: 11/17/22 20:05 Amlodipine Besylate (Amlodipine Besylate 5 Mg Tab) 2.5 mg PO QAM [facility] Stop: 11/18/22 08:59 Last Admin: 10/20/22 08:15 Dose: 2.5 mg Aspirin (Aspirin 81 Mg Ectab) 81 mg PO QAM NABEEL Stop: 11/18/22 08:59 Last Admin: 10/20/22 08:02 Dose: 81 mg Carvedilol (Carvedilol 3.125 Mg Tab) 3.125 mg PO BID NABEEL Stop: 11/17/22 20:59 Last Admin: 10/20/22 08:15 Dose: 3.125 mg Dextrose (Dextrose 50% 50 Ml Syringe) 25 - 50 ml IV UD PRN; Protocol PRN Reason: Hypoglycemia Protocol Stop: 11/17/22 20:05 Doxycycline Hyclate (Doxycycline Hyclate 100 Mg Cap) 100 mg PO BID NABEEL Stop: 10/25/22 20:59 Last Admin: 10/20/22 08:03 Dose: 100 mg Ezetimibe (Ezetimibe 10 Mg Tablet) 10 mg PO HS NABEEL Stop: 11/17/22 20:59 Last Admin: 10/19/22 21:31 Dose: 10 mg Enoxaparin Sodium (Enoxaparin Inj 40 Mg/0.4 Ml Syr) 40 mg SQ Q24H NABEEL Stop: 11/17/22 20:59 Last Admin: 10/19/22 21:33 Dose: Not Given Fluticasone/Vilanterol (Fluticasone/Vilanterol 100/25mcg 14 Puffs/Inhaler) 1 puffs INH DAILY [facility] Stop: 11/18/22 08:59 Last Admin: 10/20/22 08:02 Dose: 1 puffs Furosemide (Furosemide 40 Mg/4 Ml Vial) 40 mg IV DAILY NABEEL Stop: 11/18/22 08:59 Last Admin: 10/19/22 08:10 Dose: 40 mg Glucagon (Glucagon For Inj 1 Mg Vial) 1 mg SQ UD PRN; Protocol PRN Reason: Hypoglycemia Protocol Stop: 11/17/22 20:05 Glucose (Glucose 40% Gel 15 Gm Tube) 15 - 30 gm PO UD PRN; Protocol PRN Reason: Hypoglycemia Protocol Stop: 11/17/22 20:05 Glucose (Glucose 10 Tab/Tube) 4 - 8 tab PO UD PRN; Protocol PRN Reason: Hypoglycemia Treatment Stop: 11/17/22 20:05 Ceftriaxone Sodium 1,000 mg/ (Dextrose) 50 mls @ 100 mls/hr IV Q24H [facility], [facility]; Protocol Stop: 10/25/22 20:59 Last Infusion: 10/19/22 22:01 Dose: Infused Insulin Aspart (Insulin Aspart Per Unit) 0 units SC ACHS [facility], [facility]1983 Stop: 11/17/22 20:59 Last Admin: 10/20/22 12:09 Dose: 2 units Levothyroxine Sodium (Levothyroxine Sodium 150 Mcg Tablet) 150 mcg PO DAILYBB [facility] Stop: 11/18/22 06:29 Last Admin: 10/20/22 07:19 Dose: 150 mcg Lisinopril (Lisinopril 40 Mg Tab) 40 mg PO QAM NABEEL Stop: 11/18/22 08:59 Last Admin: 10/20/22 08:19 Dose: 40 mg Miscellaneous (Carbohydrates For Hypoglycemia ) 15 - 30 gm PO UD PRN PRN Reason: Hypoglycemia Protocol Stop: 11/17/22 20:05 Pravastatin Sodium (Pravastatin Sod 20 Mg Tab) 20 mg PO DAILY [facility] Stop: 11/18/22 08:59 Last Admin: 10/20/22 08:03 Dose: 20 mg Umeclidinium [place] (Umeclidinium [place] 62.5mcg/Blister 7 Puffs/Inhaler) 1 puffs INH DAILY [facility], [facility] Stop: 11/18/22 08:59 Last Admin: 10/20/22 08:02 Dose: 1 puffs
[2022-10-20] MEDS: EZETIMIBE 10 MG TABLET PO SCH (20:44)
[2022-10-20] MEDS: ACETAMINOPHEN 325 MG TAB PO PRN (20:44)
[2022-10-20] MEDS: ENOXAPARIN INJ 40 MG/0.4 ML SYR SQ SCH (20:45)
[2022-10-20] MEDS: cefTRIAXone SODIUM 1,000 MG in DEXTROSE 5% AD-VAN 50 ML IV SCH (20:58)
[2022-10-21] MEDS: LEVOTHYROXINE SODIUM 150 MCG TABLET PO SCH (06:30)
[2022-10-21] MEDS: FLUTICASONE/VILANTEROL 100/25MCG 14 PUFFS/INHALER INH SCH (08:38)
[2022-10-21] MEDS: UMECLIDINIUM BROMIDE 62.5MCG/BLISTER 7 PUFFS/INHALER INH SCH (08:38)
[2022-10-21] MEDS: PRAVASTATIN SOD 20 MG TAB PO SCH (08:39)
[2022-10-21] MEDS: lisinopril 40 MG TAB PO SCH (08:39)
[2022-10-21] MEDS: ASPIRIN 81 MG ECTAB PO SCH (08:39)
[2022-10-21] MEDS: amLODIPine BESYLATE 5 MG TAB PO SCH (08:40)
[2022-10-21] MEDS: carvediloL 3.125 MG TAB PO SCH (08:40)
[2022-10-21] MEDS: ACETAMINOPHEN 325 MG TAB PO PRN (08:46)
[2022-10-21] MEDS: INSULIN ASPART PER UNIT SC SCH ×2 (08:46→12:15)
[2022-10-21] MEDS: DOXYCYCLINE HYCLATE 100 MG CAP PO SCH (08:48)
[2022-10-21 11:32] VITALS: TEMP 97.3; O2SAT 96
--- NOTE | 2022-10-21 11:46 | Hospitalist Progress Note ---
Date of Service October 21, 2022 Assessment & Plan (1) Acute on chronic respiratory failure with hypoxia: (2) Acute on chronic diastolic CHF (congestive heart failure): (3) COPD, group D, by GOLD 2017 classification: Plan: Admitted to [facility] telemetry and is transferred to telemetry unit Patient presenting from home with reports of worsening shortness of breath and increased O2 requirements for the past 2 to 3 days. In the ED, patient found to be hypoxic at 83% on chronic 2 L of oxygen. Currently requiring 6 L of oxygen via nasal cannula. CXR shows cardiomegaly with pulmonary edema and bilateral pleural effusions with bibasilar consolidation. Patient is afebrile, no leukocytosis, negative procalcitonin, no change in sputum Bio fire negative Check proBNP-normal S/p Lasix 40 mg IV in the ED, continue Lasix 40 mg IV daily Echo of the heart showed-EF of 55 to 60%, mild concentric LVH, grade 1 diastolic dysfunction, mild tricuspid regurgitation and estimated systolic pulmonary artery pressure is 51 mmHg Given underlying COPD, will cover empirically with IV ceftriaxone and p.o. doxycycline. Hold on steroids at this time CT did show [id number] right pleural effusion with right basilar consolidation suggestive of pneumonia/pneumonitis We will continue current antibiotic Has been improving and moving around in the room without any difficulties She has been back to her baseline and has been requiring 4 L of oxygen via nasal cannula to maintain saturation as she has been using at home She ambulates in the room and in the hallway without any acute distress She will be discharged home this afternoon Will be discharged on oral Ceftin and doxycycline to finish the course of 7 days of antibiotic Short duration of shortness of breath History of CT of the lung D-dimer is highly elevated likely secondary to history of cancer CTA did not show any pulmonary embolism Showed 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 and pathologically enlarged gastrohepatic node Will need to have a follow-up with oncologist following discharge Discharge home this afternoon (4) CAD (coronary artery disease): Plan: Appears stable, no reports of chest pain Continue ASA, statin, beta-mike No acute cardiac symptoms (5) HTN (hypertension): Plan: BP controlled, continue amlodipine, carvedilol, lisinopril Blood pressure is controlled with current medications (6) Hypothyroid: Plan: Continue levothyroxine (7) BHAVIK on CPAP: Plan: CPAP as per home setting (8) Diabetes mellitus, type II: Plan: Hgb A1c 6.3 01/2022 Hold oral agents and utilize NovoLog per protocol while hospitalized Update A1c with a.m. lab-6.0 T. bili elevated DVT PROPHYLAXIS SQ Lovenox Admission and Anticipated Discharge Date Admission Date: October 18, 2022 Subjective 10/19/2022 The patient was seen and examined in medical telemetry unit She has been feeling a little better Denies any wheezing and has minimal shortness of breath at rest No chest pain and/or palpitation 10/20/2022 The patient was seen and examined in medical telemetry unit She has been feeling much better but not yet ready to be discharged Still requiring considerable amount of oxygen to maintain saturation 10/21/2022 The patient was seen and examined in medical telemetry unit She has been feeling much better and is back to her baseline Requires 4 L of oxygen as at home to maintain saturation Has been ambulating without any symptoms She wants to go home this afternoon Review of Systems Review of Systems: All systems reviewed and are unremarkable except as noted below Respiratory: No shortness of breath at rest Cardiovascular: Additional Comments: No palpitation Gastrointestinal: No nausea and or vomiting Neurologic: Generally weak Physical Exam Physical Exam: Lying in bed without any acute distress Constitutional: well developed, well nourished and + obese; not ill appearing Eyes: PERRL, conjunctivae normal, anicteric sclerae ENMT: external ear and nose normal, oropharynx normal Neck: trachea midline, no thyromegaly Respiratory: no respiratory distress (Minimal distress at rest) and no labored breathing Auscultation: + diminished lung sounds and + crackles (Minimal bibasilar crackles) Cardiovascular: Rate/Rhythm: regular rate and regular rhythm; not tachycardic Heart Sounds: normal S1 and normal S2; no murmur Extremities: + edema (1+ edema bilaterally) Gastrointestinal (Abdomen): Inspection/Auscultation: normal bowel sounds; abdomen not distended Percussion/Palpation: abdomen soft; abdomen nontender Musculoskeletal: No acute arthritis involving any joint Neurologic: Alert, awake and oriented x3. No focal sensory or motor deficit appreciated Lymphatic: no cervical or axillary lymphadenopathy Results & Data Results & Data ([facility]) Vital Signs (Past 12 Hours) Vital Signs Temp Pulse Pulse Pulse Resp BP Pulse Ox 10/21/22 11:31 36.3 C L 54 L 16 104/66 96 10/21/22 10:37 10/21/22 07:58 36.8 C 57 L 14 110/68 95 10/21/22 05:59 66 10/21/22 02:44 36.9 C 64 20 101/67 90 10/21/22 00:37 60 10/21/22 00:26 78 O2 Del Method O2 Flow Rate 10/21/22 11:31 Nasal Cannula 4 10/21/22 10:37 Nasal Cannula 4 10/21/22 07:58 Nasal Cannula 4 10/21/22 05:59 10/21/22 02:44 Nasal Cannula 4 10/21/22 00:37 10/21/22 00:26 Medications Administered Current Inpatient Medications Acetaminophen (Acetaminophen 325 Mg Tab) 650 mg PO Q4H PRN PRN Reason: Pain or Fever Stop: 11/17/22 20:05 Last Admin: 10/21/22 08:46 Dose: 650 mg Albuterol (Albut/Ipratrop 3mg/0.5mg Neb 3 Ml Vial) 3 ml NEB Q4R PRN; Protocol PRN Reason: Shortness Of Breath Or Wheezing Stop: 11/17/22 20:05 Amlodipine Besylate (Amlodipine Besylate 5 Mg Tab) 2.5 mg PO QAM [facility] Stop: 11/18/22 08:59 Last Admin: 10/21/22 08:40 Dose: 2.5 mg Aspirin (Aspirin 81 Mg Ectab) 81 mg PO QAM NABEEL Stop: 11/18/22 08:59 Last Admin: 10/21/22 08:39 Dose: 81 mg Carvedilol (Carvedilol 3.125 Mg Tab) 3.125 mg PO BID NABEEL Stop: 11/17/22 20:59 Last Admin: 10/21/22 08:40 Dose: 3.125 mg Dextrose (Dextrose 50% 50 Ml Syringe) 25 - 50 ml IV UD PRN; Protocol PRN Reason: Hypoglycemia Protocol Stop: 11/17/22 20:05 Doxycycline Hyclate (Doxycycline Hyclate 100 Mg Cap) 100 mg PO BID NABEEL Stop: 10/25/22 20:59 Last Admin: 10/21/22 08:48 Dose: 100 mg Ezetimibe (Ezetimibe 10 Mg Tablet) 10 mg PO HS NABEEL Stop: 11/17/22 20:59 Last Admin: 10/20/22 20:44 Dose: 10 mg Enoxaparin Sodium (Enoxaparin Inj 40 Mg/0.4 Ml Syr) 40 mg SQ Q24H [facility] Stop: 11/17/22 20:59 Last Admin: 10/20/22 20:45 Dose: 40 mg Fluticasone/Vilanterol (Fluticasone/Vilanterol 100/25mcg 14 Puffs/Inhaler) 1 puffs INH DAILY NABEEL Stop: 11/18/22 08:59 Last Admin: 10/21/22 08:38 Dose: 1 puffs Furosemide (Furosemide 40 Mg/4 Ml Vial) 40 mg IV DAILY NABEEL Stop: 11/18/22 08:59 Last Admin: 10/19/22 08:10 Dose: 40 mg Glucagon (Glucagon For Inj 1 Mg Vial) 1 mg SQ UD PRN; Protocol PRN Reason: Hypoglycemia Protocol Stop: 11/17/22 20:05 Glucose (Glucose 40% Gel 15 Gm Tube) 15 - 30 gm PO UD PRN; Protocol PRN Reason: Hypoglycemia Protocol Stop: 11/17/22 20:05 Glucose (Glucose 10 Tab/Tube) 4 - 8 tab PO UD PRN; Protocol PRN Reason: Hypoglycemia Treatment Stop: 11/17/22 20:05 Ceftriaxone Sodium 1,000 mg/ (Dextrose) 50 mls @ 100 mls/hr IV Q24H [facility]; Protocol Stop: 10/25/22 20:59 Last Infusion: 10/20/22 21:29 Dose: Infused Insulin Aspart (Insulin Aspart Per Unit) 0 units SC ACHS NABEEL Stop: 11/17/22 20:59 Last Admin: 10/21/22 08:46 Dose: 3 units Levothyroxine Sodium (Levothyroxine Sodium 150 Mcg Tablet) 150 mcg PO DAILYBB NABEEL Stop: 11/18/22 06:29 Last Admin: 10/21/22 06:30 Dose: 150 mcg Lisinopril (Lisinopril 40 Mg Tab) 40 mg PO QAM NABEEL Stop: 11/18/22 08:59 Last Admin: 10/21/22 08:39 Dose: 40 mg Miscellaneous (Carbohydrates For Hypoglycemia ) 15 - 30 gm PO UD PRN PRN Reason: Hypoglycemia Protocol Stop: 11/17/22 20:05 Pravastatin Sodium (Pravastatin Sod 20 Mg Tab) 20 mg PO DAILY [facility] Stop: 11/18/22 08:59 Last Admin: 10/21/22 08:39 Dose: 20 mg Umeclidinium [place] (Umeclidinium [place] 62.5mcg/Blister 7 Puffs/Inhaler) 1 puffs INH DAILY [facility] Stop: 11/18/22 08:59 Last Admin: 10/21/22 08:38 Dose: 1 puffs
[2022-10-21] MEDS ORDERED: cefUROXime axetil 500 MG TAB PO SCH (12:00)
[2022-10-21 13:54] VITALS: BP 91/60; PULSE 57
--- NOTE | 2022-10-22 07:54 | Discharge Summary ---
Date of Service October 21, 2022 Admission HPI Per Admitting Provider 67-year-old female with PMH DM type II, COPD, chronic hypoxic respiratory failure on 2 L of oxygen, BHAVIK on CPAP, lung cancer s/p radiation treatment, CAD with history of NSTEMI in 2008 without stenting, carotid stenosis, and other problems listed below who presents to the ED for evaluation of shortness of breath. Patient reports she has been feeling sick for the past 2 to 3 days. Patient reports she typically wears 2 L of oxygen at rest and 3-4 with activity however has had increased oxygen requirements and also has taken her longer to recover from activity. Patient was seen at urgent care today and was found to have crackles on exam and hypoxia, patient was sent to the ED for further evaluation. Patient reports a minimal cough. No fevers or chills. She denies chest pain and palpitations. No lightheadedness, dizziness, diaphoresis, syncopal events. Patient denies abdominal pain, nausea, vomiting, diarrhea. No urinary symptoms. In the ED, patient was found to be hypoxic at 83% on chronic 2 L of oxygen. Currently requiring 6 L of oxygen via nasal cannula. CXR shows cardiomegaly with pulmonary edema, small bilateral pleural effusions with bibasilar consolidation. Patient is afebrile, no leukocytosis. She was given nebulizer treatment, IV cefepime, IV furosemide. Admission Exam Per Admitting Provider Constitutional: WD/WN, vitals as above Eyes: PERRL, conjunctivae normal, anicteric sclerae ENMT: external ear and nose normal, oropharynx normal Respiratory: normal respiratory effort; no respiratory distress Auscultation: + diminished lung sounds Cardiovascular: Rate/Rhythm: regular rate and regular rhythm Vessels: normal peripheral pulses Extremities: + edema (+1 edema BLE) Gastrointestinal (Abdomen): normal bowel sounds, soft, nontender, no hepatosplenomegaly Musculoskeletal: no cyanosis or clubbing, extremities motor strength 5/5 Skin: no rashes, warm and dry Neurologic: PERRL, EOMI, accommodation nl, no face palsy, no dysarthria Psychiatric: A+Ox3, euthymic affect Principal Diagnosis Acute on chronic hypoxic respiratory failure , COPD ,small right basilar pneumonia, hypertension, BHAVIK on CPAP, CAD Discharge Exam Lying in bed without any acute distress Constitutional well developed, well nourished and + obese; not ill appearing Eyes PERRL, conjunctivae normal, anicteric sclerae ENMT external ear and nose normal, oropharynx normal Neck trachea midline, no thyromegaly Respiratory no respiratory distress (Minimal distress at rest) and no labored breathing Auscultation: + diminished lung sounds and + crackles (Minimal bibasilar crackles) Cardiovascular Rate/Rhythm: regular rate and regular rhythm; not tachycardic Heart Sounds: normal S1 and normal S2; no murmur Extremities: + edema (1+ edema bilaterally) Gastrointestinal (Abdomen) Inspection/Auscultation: normal bowel sounds; abdomen not distended Percussion/Palpation: abdomen soft; abdomen nontender Lymphatic no cervical or axillary lymphadenopathy Discharge Data Allergies Allergy/AdvReac Type Severity Reaction Status Date / Time metoprolol AdvReac Mild Hypertensio Verified 10/18/22 16:45 n tetracycline AdvReac Mild HEADACHE Verified 10/18/22 16:45 Consultations 10/18/22 14:47 ED Decision to Admit Stat Ordered Studies 10/19/22 09:03 CTA chest w con [CT angio chest w con] Urgent Hospital Course (1) Acute on chronic respiratory failure with hypoxia: (2) Acute on chronic diastolic CHF (congestive heart failure): (3) COPD, group D, by GOLD 2017 classification: Admitted to [facility] telemetry and is transferred to telemetry unit Patient presenting from home with reports of worsening shortness of breath and increased O2 requirements for the past 2 to 3 days. In the ED, patient found to be hypoxic at 83% on chronic 2 L of oxygen. Currently requiring 6 L of oxygen via nasal cannula. CXR shows cardiomegaly with pulmonary edema and bilateral pleural effusions with bibasilar consolidation. Patient is afebrile, no leukocytosis, negative procalcitonin, no change in sputum Bio fire negative Check proBNP-normal S/p Lasix 40 mg IV in the ED, continue Lasix 40 mg IV daily Echo of the heart showed-EF of 55 to 60%, mild concentric LVH, grade 1 diastolic dysfunction, mild tricuspid regurgitation and estimated systolic pulmonary artery pressure is 51 mmHg Given underlying COPD, will cover empirically with IV ceftriaxone and p.o. doxycycline. Hold on steroids at this time CT did show [id number] right pleural effusion with right basilar consolidation suggestive of pneumonia/pneumonitis We will continue current antibiotic Has been improving and moving around in the room without any difficulties She has been back to her baseline and has been requiring 4 L of oxygen via nasal cannula to maintain saturation as she has been using at home She ambulates in the room and in the hallway without any acute distress She will be discharged home this afternoon Will be discharged on oral Ceftin and doxycycline to finish the course of 7 days of antibiotic Short duration of shortness of breath History of CT of the lung D-dimer is highly elevated likely secondary to history of cancer CTA did not show any pulmonary embolism Showed 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 and pathologically enlarged gastrohepatic node Will need to have a follow-up with oncologist following discharge Discharge home this afternoon (4) CAD (coronary artery disease): Appears stable, no reports of chest pain Continue ASA, statin, beta-mike No acute cardiac symptoms (5) HTN (hypertension): BP controlled, continue amlodipine, carvedilol, lisinopril Blood pressure is controlled with current medications (6) Hypothyroid: Continue levothyroxine (7) BHAVIK on CPAP: CPAP as per home setting (8) Diabetes mellitus, type II: Hgb A1c 6.3 01/2022 Hold oral agents and utilize NovoLog per protocol while hospitalized Update A1c with a.m. lab-6.0 T. bili elevated DVT PROPHYLAXIS SQ Lovenox Total Time Total Time Spent Total Time Spent (In Minutes): 35 minutes Discharge Plan Discharge Items Patient Disposition: Home - Self-Care Reason For Visit: HYPOXIA Discharge Diagnosis: Acute on chronic hypoxic respiratory failure , COPD ,small right basilar pneumonia, hypertension, BHAVIK on CPAP, CAD Condition on Discharge: Good Activity: Resume your previous activity Non-emergency contact: Primary Care Provider Call non-emergency contact if: you have any medication questions and your symptoms worsen Follow-up/Referrals: Bipin Ramos MD [Primary Care Provider] - (Date & Time 10/27/2022 3:20 PM Provider Bipin Ramos MD Department Family Practice [facility] ) Diet: Carb Consistent or DM2 Addtl Attending Provider Instructions: Please take precautions to avoid falls Please finish the course of antibiotic Please give appointments with your healthcare providers Pending Studies at Discharge: No Stand-Alone Forms: My Checki[employer], Smoking Cessation Medications and DC Order Prescriptions: New doxycycline hyclate 100 mg Capsule 100 mg PO BID 4 Days Qty: 8 0RF cefuroxime axetil 500 mg Tablet 500 mg PO BID 4 Days Qty: 8 0RF Continued pravastatin 20 mg tablet 20 mg PO DAILY fluticasone propionate [Flonase Allergy Relief] 50 mcg/actuation spray,suspension 2 spray intranasal DAILY Rx Instructions: administer into each nostril albuterol sulfate [Ventolin HFA] 90 mcg/actuation HFA aerosol inhaler 2 puff inhalation Q6H PRN (Reason: Shortness Of Breath) aspirin 81 mg Tablet,Delayed Release (Dr/Ec) 81 mg PO QAM carvedilol 3.125 mg tablet 3.125 mg PO BID lisinopril 40 mg tablet 40 mg PO QAM furosemide [Lasix] 40 mg tablet 40 mg PO QAM Qty: 30 0RF levothyroxine 125 mcg tablet 150 mcg PO QAM metformin 500 mg tablet 500 mg PO BIDM amlodipine 2.5 mg tablet 2.5 mg PO QAM ezetimibe 10 mg tablet 10 mg PO HS turmeric 400 mg Capsule 200 mg PO QAM Black Elderberry 1 tab PO QAM budesonide-formoterol [Symbicort] 80-4.5 mcg/actuation HFA aerosol inhaler 2 inh inhalation BID Qty: 10.2 3RF Spiriva with HandiHaler 18 mcg capsule, w/inhalation device 1 cap inhalation DAILY Qty: 30 0RF Rx Instructions: puncture 1 cap using device; one dose = 2 inhalations Discharge Orders: Discharge Order (Routine); Ordered 10/21/22 Ordered By: Vidal Dickson/Other Patient Handouts: Managing Type 2 Diabetes Admission Data Admit Date/Time: 10/18/22 15:23 Attending Provider: Vidal Elkins Admit Provider: Vidal Elkins Primary Care Provider: Bipin Ramos Other Providers: Vidal Elkins Other Interventions: Discharge Summary Assessment (RN) Last Done: 10/21/22 13:54
== END 2022-10-21 15:45 | disposition home or self-care (01) | DRG 291 ==
LOC: ED 12:38 → EDINP 15:23 → 2W 21:44 → 2N 10-20 18:51

== ENCOUNTER 2022-10-24 12:38 | Inpatient (IN) ==
--- NOTE | 2022-10-24 12:49 | Emergency Department Note ---
Impression & Plan Acute respiratory failure with hypoxia and hypercarbia, Pulmonary edema, COPD with acute exacerbation ED Provider Note Name: NATO PETTIT Age: 67 Sex: F Arrives Via: Walk-In Informant: Patient, respiratory staff from code and patient's daughter ED Provider: Pedro Melo MD Chief Complaint: Respiratory distress Impression: As per impressions above Medical Decision Makin-year-old female with extensive past medical history of COPD, CHF, diabetes, CAD, hyperlipidemia, hypothyroid amongst alcohol use and hypertension arrives for evaluation of worsening respiratory distress. Patient was a code purple in the parking lot as she was coming to the hospital. Patient is in severe respiratory distress on arrival, she is hypoxic, she is cyanotic and she is quite confused. She was placed on a nonrebreather and O2 started coming up along with confusion mildly improved. She is switched over to BiPAP with vast improvement. At bedside POC ABG does reveal significant acidosis with hypercapnia. Her chest x-ray is with diffuse pulmonary edema but looking at the previous chest x-ray is actually relatively similar. Blood pressure is a little on the soft side thus we will hold off on doing IV Lasix at this time as I suspect this is more respiratory related failure rather than cardiogenic in failure. That said blood pressure 95/50 will hold off on a fluid bolus given her known congestive failure. She does not appear septic she does not have a fever she does not have a significant white count elevation compared to baseline she is not complaining of any specific illness. We will hold off on treating is septic at this time. Labs are relatively stable compared to baseline. I do not feel this is consistent with a PE given her known other histories. I discussed this with the hospitalist and they will evaluate her for further management. Prior Medical Record and Triage/Nursing Notes reviewed by Me Extensive chart review by me including recent hospitalization discharge summary Differentials:COPD exacerbation, CHF, pneumothorax, pneumonia, ischemia, PE, multiple other pathologies considered Vital Signs: reviewed and remarkable for hypoxia Interventions: DuoNeb continuous, BiPAP, Decadron 10 mg IV Labs:Reviewed and remarkable for ABG with acidosis and hypercapnia. White blood cell count at 14. Imagin view chest x-ray interpreted by me reveals bilateral pulmonary edema but is relatively similar to previous chest x-ray EKG:Interpretation by me indication respiratory failure. Normal sinus rhythm at 92 bpm with a QTc of 430. There is no ectopy nor ischemia. When compared to an EKG from October 18, 2022 there is no significant change. Cardiac/Tele Monitoring: Cardiac Monitoring: An Order was placed for continuous cardiac monitoring. The monitor shows a rate of 90 with a normal sinus rhythm. Consults:Michelle gottiist service Plan: Disposition:Hospitalization. Condition: Fair History of Present Illness:67-year-old female arrives for evaluation acute shortness of breath. Patient notes she was recently hospitalized and as she has been feeling short of breath since she was discharged patient. She was in the biking a lot this afternoon and became worsening shortness of breath. She was a code purple. Oxygen was in the 70s despite nasal cannula O2. Despite nonrebre ather oxygen came up to 80. She states she feels severely short of breath. She notes she feels a bit confused. She denies any fevers, chills, chest pain, syncope, abdominal pain, swelling or other concerning signs or symptoms. She has a history of COPD, CHF amongst multiple other comorbidities. She has previously been admitted for acute on chronic respiratory failure. She is a full code. Past History:See Below Home Medications:See Below Allergies:metoprolol, tetracycline Vitals:Blood Pressure: 102/50, Pulse 90, RR 28, T 37.0C, O2 40% on RA Physical Exam: GENERAL: Patient is unwell appearing and in moderate distress. EYES: No scleral icterus, unremarkable pupils. RESPIRATORY: Dyspneic tachypneic with diffuse tight lung sounds. CARDIOVASCULAR: Regular rate and rhythm.No murmurs, rubs, gallops appreciated. GASTROINTESTINAL: Abdomen soft, non-tender, no peritonitis.Bowel sounds positive.No masses appreciated. EXTREMITIES: Normal motion all extremities, no cyanosis, no edema. NEUROLOGIC: Alert and oriented, no focal gross neurologic deficit. SKIN: No rash, no jaundice, no diaphoresis. PSYCH: Appropriate GCS: 15 ED Course: Times/Reassessments: Frequent repeat evaluations patient is much improved with BiPAP Critical Care: I have personally spent 40 minutes of critical care time in the direct management of this patient. Acute hypercapnic and hypoxic respiratory failure requiring bipap. This was a life/limb threatening event. This 40 minutes is in excess of all separately billable procedures. Pedro Melo MD Past Med/Surg History Medical History (Updated 10/24/22 @ 16:54 by Siena Regan PA-C) Alcohol use CAD (coronary artery disease) NSTEMI 2009 - moderate nonobstructive disease, no stenting Carotid stenosis Chronic diastolic (congestive) heart failure Chronic respiratory failure with hypoxia Constipation COPD, group D, by GOLD 2017 classification Diabetes mellitus, type II HLD (hyperlipidemia) HTN (hypertension) Hypothyroid Obesity (BMI 30.0-34.9) BHAVIK on CPAP Primary cancer of right lower lobe of lung (01/31/22) s/p radiation Surgical History S/P cholecystectomy Family History Mother , age 69 Heart disease Rheumatoid arthritis Osteoarthritis Father , age 69 Myocardial infarction Asthma COPD (chronic obstructive pulmonary disease) Sister , age 29 Lung disease Other Diabetes Social History Smoking Status: Former smoker Tobacco Type: Cigarettes Age Started Using Tobacco: 18; Age Quit Using Tobacco: 60; packs per day: 2; Second Hand Exposure: No; Hx Alcohol Use: Yes Alcohol type: beer Alcohol type Comment: 3-5 coors light daily Alcohol Intake Frequency: 4 or More x per/Week Hx Substance Use: No Preferred Language: Cymraes Communication Ability: Effective Electrical Apprentice Required: No Beliefs That Will Affect Care: Spiritual marital status: / Current Living Situation: Alone current occupational status: retired and disabled 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 [employer] How many Children do You have: 3 Feels Safe at Home: Yes caffeine: Yes (Diet pepsi - 4 cans/day) Assistive Devices: CPAP and Oxygen - Continuous Allergies Allergies Allergy/AdvReac Type Severity Reaction Status Date / Time metoprolol AdvReac Mild Hypertensio Verified 10/24/22 16:27 n tetracycline AdvReac Mild HEADACHE Verified 10/24/22 16:27 Home Meds Home Medications Medication Instructions Recorded Confirmed aspirin 81 mg tablet,delayed 81 mg PO QAM 01/13/19 10/24/22 release carvedilol 3.125 mg tablet 3.125 mg PO BID 01/13/19 10/24/22 lisinopril 40 mg tablet 40 mg PO QAM 01/13/19 10/24/22 Black Elderberry 1 tab PO QAM 03/18/21 10/24/22 amlodipine 2.5 mg tablet 2.5 mg PO DAILY 03/18/21 10/24/22 ezetimibe 10 mg tablet 10 mg PO DAILY 03/18/21 10/24/22 metformin 500 mg tablet 500 mg PO BIDM 03/18/21 10/24/22 albuterol sulfate 90 mcg/actuation 2 puff inhalation Q4 PRN Wheezing 03/19/22 10/24/22 aerosol inhaler (Ventolin HFA) fluticasone propionate 50 2 spray intranasal DAILY PRN 03/19/22 10/24/22 mcg/actuation nasal Congestion spray,suspension (Flonase Allergy Relief) budesonide-formoterol HFA 80 2 inh inhalation AMHS 10/24/22 10/24/22 mcg-4.5 mcg/actuation aerosol inhaler (Symbicort) levothyroxine 150 mcg tablet 150 mcg PO QAM 10/24/22 10/24/22 tiotropium bromide 18 mcg capsule 1 cap inhalation QAM 10/24/22 10/24/22 with inhalation device (Spiriva with HandiHaler) turmeric 400 mg capsule 400 mg PO DAILY 10/24/22 10/24/22 Previous Rx's Medication Instructions Recorded furosemide 40 mg tablet (Lasix) 40 mg PO QAM #30 tabs 01/16/19 cefuroxime axetil 500 mg tablet 500 mg PO BID 4 days #8 tabs 10/21/22 doxycycline hyclate 100 mg capsule 100 mg PO BID 4 days #8 caps 10/21/22 Results & Data (ED) Vital Signs Vital Signs - 24 hr 10/24/22 12:47 10/24/22 12:47 10/24/22 13:02 Temperature 37.0 C Temperature Source Axillary Pulse Rate 87 Pulse Rate [Apical] Pulse Rate from SpO2 Sensor Pulse Rhythm Regular Pulse Strength Normal Respiratory Rate 25 H Respiratory Effort / Characteristics Labored Labored Respiratory Depth Respiratory Pattern Regular Blood Pressure 147/69 H Blood Pressure Mean 95 Blood Pressure Position Lying Pulse Oximetry 91 40 L Oxygen Delivery Method BiPAP Room Air Fraction of Inspired Oxygen Sepsis Recent Fever Within 48 Hours No Sepsis New/Unexplained Change in Mental Status No Sepsis Action Taken by Nursing No Action Required Pulse Oximetry Post Tiitration 94 10/24/22 13:00 10/24/22 13:15 10/24/22 13:30 Temperature Temperature Source Pulse Rate 87 85 83 Pulse Rate [Apical] Pulse Rate from SpO2 Sensor 88 Pulse Rhythm Pulse Strength Respiratory Rate 19 22 25 H Respiratory Effort / Characteristics Respiratory Depth Respiratory Pattern Blood Pressure 147/69 H 136/63 127/73 Blood Pressure Mean 95 87 91 Blood Pressure Position Pulse Oximetry 90 96 96 Oxygen Delivery Method BiPAP BiPAP BiPAP Fraction of Inspired Oxygen Sepsis Recent Fever Within 48 Hours Sepsis New/Unexplained Change in Mental Status Sepsis Action Taken by Nursing Pulse Oximetry Post Tiitration 10/24/22 13:46 10/24/22 12:45 10/24/22 12:45 Temperature Temperature Source Pulse Rate 78 91 H Pulse Rate [Apical] 91 H Pulse Rate from SpO2 Sensor 78 Pulse Rhythm Pulse Strength Respiratory Rate 20 22 22 Respiratory Effort / Characteristics Spontaneous Spontaneous Short of Breath Respiratory Depth Shallow Respiratory Pattern Blood Pressure 103/62 Blood Pressure Mean 75 Blood Pressure Position Pulse Oximetry 96 94 94 Oxygen Delivery Method BiPAP BiPAP Fraction of Inspired Oxygen 70 70 Sepsis Recent Fever Within 48 Hours Sepsis New/Unexplained Change in Mental Status Sepsis Action Taken by Nursing Pulse Oximetry Post Tiitration 10/24/22 14:01 10/24/22 14:15 10/24/22 14:20 Temperature Temperature Source Pulse Rate 76 71 72 Pulse Rate [Apical] Pulse Rate from SpO2 Sensor 76 72 Pulse Rhythm Pulse Strength Respiratory Rate 19 19 19 Respiratory Effort / Characteristics Respiratory Depth Respiratory Pattern Blood Pressure 104/52 L 95/54 L Blood Pressure Mean 69 67 Blood Pressure Position Pulse Oximetry 96 96 96 Oxygen Delivery Method Room Air BiPAP Fraction of Inspired Oxygen Sepsis Recent Fever Within 48 Hours Sepsis New/Unexplained Change in Mental Status Sepsis Action Taken by Nursing Pulse Oximetry Post Tiitration 10/24/22 14:30 10/24/22 14:30 10/24/22 14:44 Temperature Temperature Source Pulse Rate 64 66 Pulse Rate [Apical] Pulse Rate from SpO2 Sensor 66 Pulse Rhythm Pulse Strength Respiratory Rate 19 18 Respiratory Effort / Characteristics Respiratory Depth Respiratory Pattern Blood Pressure 97/50 L Blood Pressure Mean 65 Blood Pressure Position Pulse Oximetry 98 Oxygen Delivery Method Fraction of Inspired Oxygen Sepsis Recent Fever Within 48 Hours Sepsis New/Unexplained Change in Mental Status Sepsis Action Taken by Nursing Pulse Oximetry Post Tiitration 10/24/22 14:45 10/24/22 14:45 10/24/22 14:50 Temperature Temperature Source Pulse Rate 71 61 Pulse Rate [Apical] Pulse Rate from SpO2 Sensor 69 62 Pulse Rhythm Pulse Strength Respiratory Rate 16 19 Respiratory Effort / Characteristics Respiratory Depth Respiratory Pattern Blood Pressure 97/66 L Blood Pressure Mean 76 Blood Pressure Position Pulse Oximetry 97 95 Oxygen Delivery Method Fraction of Inspired Oxygen Sepsis Recent Fever Within 48 Hours Sepsis New/Unexplained Change in Mental Status Sepsis Action Taken by Nursing Pulse Oximetry Post Tiitration 10/24/22 15:00 10/24/22 15:00 10/24/22 15:10 Temperature Temperature Source Pulse Rate 76 63 Pulse Rate [Apical] Pulse Rate from SpO2 Sensor 63 Pulse Rhythm Pulse Strength Respiratory Rate 17 16 Respiratory Effort / Characteristics Respiratory Depth Respiratory Pattern Blood Pressure 102/55 L Blood Pressure Mean 70 Blood Pressure Position Pulse Oximetry 95 Oxygen Delivery Method Fraction of Inspired Oxygen Sepsis Recent Fever Within 48 Hours Sepsis New/Unexplained Change in Mental Status Sepsis Action Taken by Nursing Pulse Oximetry Post Tiitration 10/24/22 15:20 10/24/22 15:30 10/24/22 15:30 Temperature Temperature Source Pulse Rate 60 64 Pulse Rate [Apical] Pulse Rate from SpO2 Sensor 61 Pulse Rhythm Pulse Strength Respiratory Rate 15 19 Respiratory Effort / Characteristics Respiratory Depth Respiratory Pattern Blood Pressure 106/63 Blood Pressure Mean 77 Blood Pressure Position Pulse Oximetry 95 Oxygen Delivery Method Fraction of Inspired Oxygen Sepsis Recent Fever Within 48 Hours Sepsis New/Unexplained Change in Mental Status Sepsis Action Taken by Nursing Pulse Oximetry Post Tiitration 10/24/22 15:40 10/24/22 15:50 10/24/22 16:00 Temperature Temperature Source Pulse Rate 66 62 Pulse Rate [Apical] Pulse Rate from SpO2 Sensor 66 63 Pulse Rhythm Pulse Strength Respiratory Rate 20 18 Respiratory Effort / Characteristics Respiratory Depth Respiratory Pattern Blood Pressure 127/89 Blood Pressure Mean 101 Blood Pressure Position Pulse Oximetry 95 94 Oxygen Delivery Method Fraction of Inspired Oxygen Sepsis Recent Fever Within 48 Hours Sepsis New/Unexplained Change in Mental Status Sepsis Action Taken by Nursing Pulse Oximetry Post Tiitration 10/24/22 16:00 10/24/22 16:10 10/24/22 16:20 Temperature Temperature Source Pulse Rate 68 65 78 Pulse Rate [Apical] Pulse Rate from SpO2 Sensor 68 65 77 Pulse Rhythm Pulse Strength Respiratory Rate 23 22 18 Respiratory Effort / Characteristics Respiratory Depth Respiratory Pattern Blood Pressure Blood Pressure Mean Blood Pressure Position Pulse Oximetry 94 94 96 Oxygen Delivery Method Fraction of Inspired Oxygen Sepsis Recent Fever Within 48 Hours Sepsis New/Unexplained Change in Mental Status Sepsis Action Taken by Nursing Pulse Oximetry Post Tiitration 10/24/22 16:30 10/24/22 16:30 10/24/22 16:40 Temperature Temperature Source Pulse Rate 67 72 Pulse Rate [Apical] Pulse Rate from SpO2 Sensor 72 Pulse Rhythm Pulse Strength Respiratory Rate 21 22 Respiratory Effort / Characteristics Respiratory Depth Respiratory Pattern Blood Pressure 144/71 H Blood Pressure Mean 95 Blood Pressure Position Pulse Oximetry 94 Oxygen Delivery Method Fraction of Inspired Oxygen Sepsis Recent Fever Within 48 Hours Sepsis New/Unexplained Change in Mental Status Sepsis Action Taken by Nursing Pulse Oximetry Post Tiitration 10/24/22 16:50 10/24/22 17:00 10/24/22 17:10 Temperature Temperature Source Pulse Rate 74 78 88 Pulse Rate [Apical] Pulse Rate from SpO2 Sensor 75 79 86 Pulse Rhythm Pulse Strength Respiratory Rate 24 22 24 Respiratory Effort / Characteristics Respiratory Depth Respiratory Pattern Blood Pressure Blood Pressure Mean Blood Pressure Position Pulse Oximetry 95 94 93 Oxygen Delivery Method Fraction of Inspired Oxygen Sepsis Recent Fever Within 48 Hours Sepsis New/Unexplained Change in Mental Status Sepsis Action Taken by Nursing Pulse Oximetry Post Tiitration Laboratory Data 10/24/22 12:54 10/24/22 12:54 Lab Results 10/24/22 10/24/22 10/24/22 Range/Units 12:49 12:54 12:54 WBC 14.38 H (4.8-10.8) K/ul RBC 4.11 L (4.20-5.40) M/uL Hgb 12.7 (12.0-16.0) g/dl POC Hgb 14.3 (12.0-16.0) g/dl Hct 42.7 (37.0-47.0) % POC Hct 42 (37-47) % MCV 103.9 H (80.0-100.0) fL MCH 30.9 (25.0-34.0) pg MCHC 29.7 L (32.0-36.0) g/dL RDW Std Deviation 53.0 H (36.4-46.3) fL RDW Coeff of Naa 13.8 (11.5-14.5) % Plt Count 282 (130-400) K/uL MPV 10.9 (9.4-12.4) fL Immature Gran % (Auto) 1.0 % Neut % (Auto) 79.1 % Lymph % (Auto) 10.4 % [place] % (Auto) 7.5 % Eos % (Auto) 1.3 % Baso % (Auto) 0.7 % Neut # (Auto) 11.37 H (1.40-6.50) K/uL Lymph # (Auto) 1.49 (1.2-3.4) K/uL [place] # (Auto) 1.08 H (0.11-0.59) K/uL Eos # (Auto) 0.19 (0-0.50) K/uL Baso # (Auto) 0.10 (0-0.2) K/uL Immature Gran # (Auto) 0.15 (0.01-0.20) K/uL PT 10.9 (9.0-12.0) Seconds INR 1.0 (0.9-1.1) POC pH 7.06 L* (7.35-7.45) POC pCO2 > 115 H (35-46) mmHg POC pO2 172 H (80-95) mmHg POC HCO3 33 H (19-24) janice/L POC Total CO2 36 H (24-31) mmol/L POC Base Excess 3.0 H (-9-1.8) janice/L POC ABG O2 Sat 99.0 H (90-95) % POC Sodium 140 (135-144) mmol/L Sodium (136-145) mmol/L POC Potassium 5.2 H (3.3-5.0) mmol/L Potassium (3.5-5.1) mmol/L Chloride (98-107) mmol/L Carbon Dioxide (21-32) mmol/L Anion Gap (3-11) BUN (6-23) mg/dl Creatinine (0.6-1.2) mg/dl Est Cr Clr Drug Dosing ml/min Est GFR ( Amer) ml/min Est GFR (Non-Af Amer) ml/min BUN/Creatinine Ratio (10-20) Glucose (70-99(Fasting)) mg/dl Lactate (0.4-2.0) mmol/L Calcium (8.5-10.1) mg/dl Magnesium (1.7-2.4) mg/dl Total Bilirubin (0.2-1.0) mg/dl Direct Bilirubin (0-0.2) mg/dl AST (13-39) U/L ALT (7-52) U/L Alkaline Phosphatase (34-104) U/L Troponin I High Sens (0-14) pg/ml B-Natriuretic Peptide (0-100) pg/ml Total Protein (6.0-8.3) gm/dl Albumin (3.4-5.0) gm/dl SARS-CoV-2 (PCR) (Negative) Influenza Type A (PCR) (Neg) Influenza Type B (PCR) (Neg) RSV (RT-PCR) (Neg) 10/24/22 10/24/22 10/24/22 Range/Units 12:54 12:54 16:43 WBC (4.8-10.8) K/ul RBC (4.20-5.40) M/uL Hgb (12.0-16.0) g/dl POC Hgb (12.0-16.0) g/dl Hct (37.0-47.0) % POC Hct (37-47) % MCV (80.0-100.0) fL MCH (25.0-34.0) pg MCHC (32.0-36.0) g/dL RDW Std Deviation (36.4-46.3) fL RDW Coeff of Naa (11.5-14.5) % Plt Count (130-400) K/uL MPV (9.4-12.4) fL Immature Gran % (Auto) % Neut % (Auto) % Lymph % (Auto) % [place] % (Auto) % Eos % (Auto) % Baso % (Auto) % Neut # (Auto) (1.40-6.50) K/uL Lymph # (Auto) (1.2-3.4) K/uL [place] # (Auto) (0.11-0.59) K/uL Eos # (Auto) (0-0.50) K/uL Baso # (Auto) (0-0.2) K/uL Immature Gran # (Auto) (0.01-0.20) K/uL PT (9.0-12.0) Seconds INR (0.9-1.1) POC pH (7.35-7.45) POC pCO2 (35-46) mmHg POC pO2 (80-95) mmHg POC HCO3 (19-24) janice/L POC Total CO2 (24-31) mmol/L POC Base Excess (-9-1.8) janice/L POC ABG O2 Sat (90-95) % POC Sodium (135-144) mmol/L Sodium 140 (136-145) mmol/L POC Potassium (3.3-5.0) mmol/L Potassium 5.2 H (3.5-5.1) mmol/L Chloride 102 (98-107) mmol/L Carbon Dioxide 33 H (21-32) mmol/L Anion Gap 5 (3-11) BUN 30 H (6-23) mg/dl Creatinine 0.71 (0.6-1.2) mg/dl Est Cr Clr Drug Dosing 91.8 ml/min Est GFR ( Amer) 103.6 ml/min Est GFR (Non-Af Amer) 89.4 ml/min BUN/Creatinine Ratio 42.3 H (10-20) Glucose 228 H (70-99(Fasting)) mg/dl Lactate (0.4-2.0) mmol/L Calcium 9.5 (8.5-10.1) mg/dl Magnesium 1.8 (1.7-2.4) mg/dl Total Bilirubin 0.4 (0.2-1.0) mg/dl Direct Bilirubin 0.0 (0-0.2) mg/dl AST 20 (13-39) U/L ALT 35 (7-52) U/L Alkaline Phosphatase 103 (34-104) U/L Troponin I High Sens 18.8 H 52.8 H* D (0-14) pg/ml B-Natriuretic Peptide 291 H (0-100) pg/ml Total Protein 8.4 H (6.0-8.3) gm/dl Albumin 4.3 (3.4-5.0) gm/dl SARS-CoV-2 (PCR) (Negative) Influenza Type A (PCR) (Neg) Influenza Type B (PCR) (Neg) RSV (RT-PCR) (Neg) 10/24/22 10/24/22 Range/Units 16:44 Unknown WBC (4.8-10.8) K/ul RBC (4.20-5.40) M/uL Hgb (12.0-16.0) g/dl POC Hgb (12.0-16.0) g/dl Hct (37.0-47.0) % POC Hct (37-47) % MCV (80.0-100.0) fL MCH (25.0-34.0) pg MCHC (32.0-36.0) g/dL RDW Std Deviation (36.4-46.3) fL RDW Coeff of Naa (11.5-14.5) % Plt Count (130-400) K/uL MPV (9.4-12.4) fL Immature Gran % (Auto) % Neut % (Auto) % Lymph % (Auto) % [place] % (Auto) % Eos % (Auto) % Baso % (Auto) % Neut # (Auto) (1.40-6.50) K/uL Lymph # (Auto) (1.2-3.4) K/uL [place] # (Auto) (0.11-0.59) K/uL Eos # (Auto) (0-0.50) K/uL Baso # (Auto) (0-0.2) K/uL Immature Gran # (Auto) (0.01-0.20) K/uL PT (9.0-12.0) Seconds INR (0.9-1.1) POC pH (7.35-7.45) POC pCO2 (35-46) mmHg POC pO2 (80-95) mmHg POC HCO3 (19-24) janice/L POC Total CO2 (24-31) mmol/L POC Base Excess (-9-1.8) janice/L POC ABG O2 Sat (90-95) % POC Sodium (135-144) mmol/L Sodium (136-145) mmol/L POC Potassium (3.3-5.0) mmol/L Potassium (3.5-5.1) mmol/L Chloride (98-107) mmol/L Carbon Dioxide (21-32) mmol/L Anion Gap (3-11) BUN (6-23) mg/dl Creatinine (0.6-1.2) mg/dl Est Cr Clr Drug Dosing ml/min Est GFR ( Amer) ml/min Est GFR (Non-Af Amer) ml/min BUN/Creatinine Ratio (10-20) Glucose (70-99(Fasting)) mg/dl Lactate 1.1 (0.4-2.0) mmol/L Calcium (8.5-10.1) mg/dl Magnesium (1.7-2.4) mg/dl Total Bilirubin (0.2-1.0) mg/dl Direct Bilirubin (0-0.2) mg/dl AST (13-39) U/L ALT (7-52) U/L Alkaline Phosphatase (34-104) U/L Troponin I High Sens (0-14) pg/ml B-Natriuretic Peptide (0-100) pg/ml Total Protein (6.0-8.3) gm/dl Albumin (3.4-5.0) gm/dl SARS-CoV-2 (PCR) NEGATIVE (Negative) Influenza Type A (PCR) Negative (Neg) Influenza Type B (PCR) Negative (Neg) RSV (RT-PCR) Negative (Neg) Administered Medications Discontinued Medications Albuterol (Albut/Ipratrop 3mg/0.5mg Neb 3 Ml Vial) 12 ml NEB ONE ONE; Protocol Stop: 10/24/22 12:52 Last Admin: 10/24/22 12:51 Dose: 12 ml Documented By: EM Dexamethasone Sodium Phosphate (DexamethasonePf 10 Mg/Ml Vial) 10 mg IV NOW ONE Stop: 10/24/22 12:52 Last Admin: 10/24/22 13:04 Dose: 10 mg Documented By: RDD Imaging Data Radiologist's Impression: Chest X-Ray 10/24/22 12:43 XR chest 1V portable CLINICAL HISTORY: short of breath. Lung cancer. COMPARISON STUDY: Chest radiograph October 18, 2022. Chest CT October 19, 2022. FINDINGS: The known right lower lobe lesion is obscured on this exam. There is no pneumothorax. Small bilateral pleural effusions with associated bibasilar opacities are greater on the right. Cardiomegaly is unchanged. Interstitial pulmonary edema persists. IMPRESSION: 1. Persistent pulmonary edema. 2. Small bilateral pleural effusions with associated bibasilar opacities, greater on the right. ACT 112: Negative or not required by law. Electronically signed by: Nehemias Holt M.D. 10/24/2022 1:11 PM Discharge Plan Visit Data Chief Complaint: Shortness of Breath/Dyspnea ED Provider: Pedro Melo Discharge Problem: Acute respiratory failure with hypoxia and hypercarbia, Pulmonary edema, COPD with acute exacerbation Forms Stand Alone Forms: My [facility] Prescriptions Prescriptions: No Action fluticasone propionate [Flonase Allergy Relief] 50 mcg/actuation spray,suspension 2 spray intranasal DAILY PRN (Reason: Congestion) Rx Instructions: administer into each nostril albuterol sulfate [Ventolin HFA] 90 mcg/actuation HFA aerosol inhaler 2 puff inhalation Q4 PRN (Reason: Wheezing) aspirin 81 mg Tablet,Delayed Release (Dr/Ec) 81 mg PO QAM carvedilol 3.125 mg tablet 3.125 mg PO BID lisinopril 40 mg tablet 40 mg PO QAM furosemide [Lasix] 40 mg tablet 40 mg PO QAM Qty: 30 0RF doxycycline hyclate 100 mg Capsule 100 mg PO BID 4 Days Qty: 8 0RF cefuroxime axetil 500 mg Tablet 500 mg PO BID 4 Days Qty: 8 0RF metformin 500 mg tablet 500 mg PO BIDM amlodipine 2.5 mg tablet 2.5 mg PO DAILY ezetimibe 10 mg tablet 10 mg PO DAILY Black Elderberry 1 tab PO QAM levothyroxine 150 mcg tablet 150 mcg PO QAM Spiriva with HandiHaler 18 mcg capsule, w/inhalation device 1 cap inhalation QAM Rx Instructions: puncture 1 cap using device; one dose = 2 inhalations budesonide-formoterol [Symbicort] 80-4.5 mcg/actuation HFA aerosol inhaler 2 inh inhalation AMHS turmeric 400 mg Capsule 400 mg PO DAILY Referrals Referrals: Bipin Ramos MD [Primary Care Provider] - : Pulmonary edema Qualifiers: Chronicity: acute Qualified Code(s): J81.0 - Acute pulmonary edema
[2022-10-24] MEDS ORDERED: ALBUT/IPRATROP 3MG/0.5MG NEB 3 ML VIAL NEB ONE (12:51)
[2022-10-24] MEDS ORDERED: dexAMETHasone**PF** 10 MG/ML VIAL IV ONE (12:51)
[2022-10-24 13:02] LABS: iSTAT Arterial Blood Gas HCO3 33 meg/L (19-24); iSTAT Arterial Blood Gas pCO2 > 115 mmHg (35-46); iSTAT Arterial Blood Gas pH 7.06 (7.35-7.45); iSTAT Arterial Blood Gas pO2 172 mmHg (80-95); iSTAT Carbon Dioxide 36 mmol/L (24-31); iSTAT Hematocrit 42 % (37-47); iSTAT Hemoglobin 14.3 g/dl (12.0-16.0); iSTAT Potassium 5.2 mmol/L (3.3-5.0); iSTAT Sodium 140 mmol/L (135-144)
--- NOTE | 2022-10-24 13:13 | XRay Report ---
XR chest 1V portable CLINICAL HISTORY: short of breath. Lung cancer. COMPARISON STUDY: Chest radiograph October 18, 2022. Chest CT October 19, 2022. FINDINGS: The known right lower lobe lesion is obscured on this exam. There is no pneumothorax. Small bilateral pleural effusions with associated bibasilar opacities are greater on the right. Cardiomega ly is unchanged. Interstitial pulmonary edema persists. IMPRESSION: 1. Persistent pulmonary edema. 2. Small bilateral pleural effusions with associated bibasilar opacities, greater on the right. ACT 112: Negative or not required by law. Electronically signed by: Nehemias Holt M.D. 10/24/2022 1:11 PM
[2022-10-24 13:20] LABS: Basophils % (auto) 0.7 %; Eosinophils # (auto) 0.19 K/uL (0-0.50); Eosinophils % (auto) 1.3 %; Hematocrit (blood only) 42.7 % (37.0-47.0); Hemoglobin 12.7 g/dl (12.0-16.0); Immature Granulocytes # (auto) 0.15 K/uL (0.01-0.20); Lymphocytes # (auto) 1.49 K/uL (1.2-3.4); Lymphocytes % (auto) 10.4 %; Mean Corpuscular Hemoglobin 30.9 pg (25.0-34.0); Mean Corpuscular Hgb Conc 29.7 g/dL (32.0-36.0); Mean Corpuscular Volume 103.9 fL (80.0-100.0); Mean Platelet Volume 10.9 fL (9.4-12.4); Monocytes # (auto) 1.08 K/uL (0.11-0.59); Monocytes % (auto) 7.5 %; Neutrophils # (auto) 11.37 K/uL (1.40-6.50); Neutrophils % (auto) 79.1 %; Platelet Count 282 K/uL (130-400); RDW Coefficient of Variation 13.8 % (11.5-14.5); Red Blood Count 4.11 M/uL (4.20-5.40); White Blood Count 14.38 K/ul (4.8-10.8)
[2022-10-24 13:35] LABS: Albumin Level 4.3 gm/dl (3.4-5.0); BUN Creatinine Ratio 42.3 (10-20); Bilirubin,Total 0.4 mg/dl (0.2-1.0); Calcium 9.5 mg/dl (8.5-10.1); Creatinine Clr Calc Pharmacy 91.8 ml/min; Est GFR (African American) 103.6 ml/min; Est GFR (Non-African American) 89.4 ml/min; Magnesium 1.8 mg/dl (1.7-2.4); Potassium 5.2 mmol/L (3.5-5.1); Total Protein 8.4 gm/dl (6.0-8.3)
[2022-10-24 13:39] LABS: Troponin I High Sensitivity 18.8 pg/ml (0-14)
[2022-10-24 13:43] LABS: Prothrombin Time 10.9 Seconds (9.0-12.0)
[2022-10-24 14:29] LABS: Influenza A virus by PCR Negative (Neg); Influenza B virus by PCR Negative (Neg); RSV by PCR Negative (Neg); SARS CoV2 RNA(COVID-19) Ceph NEGATIVE (Negative)
--- NOTE | 2022-10-24 15:36 | History & Physical Report ---
Date of Service October 24, 2022 Assessment & Plan (1) Acute respiratory failure with hypoxia and hypercarbia: (2) Acute respiratory acidosis: (3) COPD with acute exacerbation: (4) Pulmonary edema: Plan: -Admit to PCU -Continue with Solu-Medrol IV 40 mg every 12 for now with wheezing, received 10 mg IV dexamethasone in the ER -Continue nebulizer treatments, spiriva, symbicort inh -Remain on BiPAP for now, wean as tolerated, patient wears 4 L O2 via NC at base line -ABG with pH initially 7.0, PCO2 >115, bicarb of 33, PO2 172 : Recheck ABG now -Patient was scheduled to finish course of cefdinir and doxycycline p.o. tomorrow, since she has received 7-day course of antibiotics will hold on further antibiotics -White count is 14.38, was 8.35 at time of discharge 3 d ago, afebrile -Pt denies smoking and quit several years ago (5) Diabetes mellitus, type II: Plan: -A1c of 6.0 recently checked during last hospital stay -ISS with Accu-Cheks ACHS -Holding metformin (6) Chronic diastolic (congestive) heart failure: (7) CAD (coronary artery disease): (8) HLD (hyperlipidemia): Plan: -Continue amlodipine, baby aspirin, carvedilol, lisinopril -Holding Lasix secondary to Borderline low BP, noted that BNP is elevated at 291, and pulmonary edema seen on chest x-ray, if blood pressure improves can consider diuretic if suspected underlying CHF exacerbation however at this time it appears to be more COPD -Troponin slightly elevated at 18.8, trending x1 more set (9) Obesity (BMI 30.0-34.9): Plan: - BMI of 41.2, diet and exercise to be encouraged prior to discharge (10) Hypothyroid: Plan: - Cont levothyroxine DVT ppx: - scds, lovenox subq CODE: Full code Dispo: From home, likely to remain in the hospital x 1-2 days A total of 78 minutes were spent with greater than 50% of that time face to face with the patient, personally reviewing all current laboratories, imaging studies, past medication reconciliation, outpatient chart review, and discussion with specialists to collaborate care for the patient with attending. Please see attending documentation for corrections and/or additions. History of Present Illness Chief Complaint: Shortness of breath Primary Care Provider: Bipin Ramos MD This is a 67-year-old female with PMHx of acute on chronic respiratory failure, chronic diastolic CHF, COPD, CAD, HTN, hypothyroidism, BHAVIK on CPAP, DM type II who was recently admitted here at [facility] 10/18 to 10/21 for acute on chronic respiratory failure where she was treated with IV antibiotics for suspected underlying pneumonia, and sent home on a course of Ceftin and Doxy p.o. to complete a 7-day course which would have completed on 10/25/22. Today the patient was called a code purple as she arrived into the parking lot and was found to be in acute distress and short of breath. She was driving here to the hospital with her 3 small grandchildren to visit a new baby that was born yesterday. The oldest grandchild called their father, who then alerted the hospital. They waved down staff member to get her into the ER. She was hypoxic in the 70s upon presentation to the ER and was found to be on 4 L portable concentrator in her car. She has been placed on BiPAP in the ER. Initially her ABG showed that her pH was 7.0, PCO2 => 115, O2 172, bicarb 33. BNP is elevated to 291, troponin is slightly elevated 18.8, glucose is 228. Her BP is soft at 95/54. At present she appears comfortable on bipap and is able to recall events and talk to me in full sentences. She denies acute distress currently. Her daughter, Ghazala and three grandchildren are present with her at bedside. Allergies Allergy/AdvReac Type Severity Reaction Status Date / Time metoprolol AdvReac Mild Hypertensio Verified 10/24/22 16:27 n tetracycline AdvReac Mild HEADACHE Verified 10/24/22 16:27 Home Medications Medication Instructions Recorded Confirmed Type aspirin 81 mg tablet,delayed 81 mg PO QAM 01/13/19 10/24/22 History release carvedilol 3.125 mg tablet 3.125 mg PO BID 01/13/19 10/24/22 History lisinopril 40 mg tablet 40 mg PO QAM 01/13/19 10/24/22 History furosemide 40 mg tablet (Lasix) 40 mg PO QAM #30 tabs 01/16/19 10/24/22 Rx Black Elderberry 1 tab PO QAM 03/18/21 10/24/22 History amlodipine 2.5 mg tablet 2.5 mg PO DAILY 03/18/21 10/24/22 History ezetimibe 10 mg tablet 10 mg PO DAILY 03/18/21 10/24/22 History metformin 500 mg tablet 500 mg PO BIDM 03/18/21 10/24/22 History albuterol sulfate 90 mcg/actuation 2 puff inhalation Q4 PRN Wheezing 03/19/22 10/24/22 History aerosol inhaler (Ventolin HFA) fluticasone propionate 50 2 spray intranasal DAILY PRN 03/19/22 10/24/22 History mcg/actuation nasal Congestion spray,suspension (Flonase Allergy Relief) cefuroxime axetil 500 mg tablet 500 mg PO BID 4 days #8 tabs 10/21/22 10/24/22 Rx doxycycline hyclate 100 mg capsule 100 mg PO BID 4 days #8 caps 10/21/22 Rx budesonide-formoterol HFA 80 2 inh inhalation AMHS 10/24/22 10/24/22 History mcg-4.5 mcg/actuation aerosol inhaler (Symbicort) levothyroxine 150 mcg tablet 150 mcg PO QAM 10/24/22 10/24/22 History tiotropium bromide 18 mcg capsule 1 cap inhalation QAM 10/24/22 10/24/22 History with inhalation device (Spiriva with HandiHaler) turmeric 400 mg capsule 400 mg PO DAILY 10/24/22 10/24/22 History Past Med/Surg History Medical History (Updated 10/24/22 @ 16:54 by Siena Regan PA-C) Alcohol use CAD (coronary artery disease) NSTEMI 2008 - moderate nonobstructive disease, no stenting Carotid stenosis Chronic diastolic (congestive) heart failure Chronic respiratory failure with hypoxia Constipation COPD, group D, by GOLD 2017 classification Diabetes mellitus, type II HLD (hyperlipidemia) HTN (hypertension) Hypothyroid Obesity (BMI 30.0-34.9) BHAVIK on CPAP Primary cancer of right lower lobe of lung (01/31/22) s/p radiation Surgical History S/P cholecystectomy Family History Mother , age 69 Heart disease Rheumatoid arthritis Osteoarthritis Father , age 69 Myocardial infarction Asthma COPD (chronic obstructive pulmonary disease) Sister , age 29 Lung disease Other Diabetes Social History Smoking Status: Former smoker Tobacco Type: Cigarettes Age Started Using Tobacco: 18; Age Quit Using Tobacco: 60; packs per day: 2; Second Hand Exposure: No; Hx Alcohol Use: Yes Alcohol type: beer Alcohol type Comment: 3-5 coors light da gabe Alcohol Intake Frequency: 4 or More x per/Week Hx Substance Use: No Preferred Language: Andorran Communication Ability: Effective Manager Of Tax Required: No Beliefs That Will Affect Care: None marital status: / Current Living Situation: Alone current occupational status: retired and disabled current occupation: [employer] How many Children do You have: 3 Other Information That Helps Us Care for You: No Feels Safe at Home: Yes Safety Concerns: Feels Safe At This Time caffeine: Yes (Diet pepsi - 4 cans/day) Assistive Devices: Glasses, Nebulizer and Oxygen - Continuous Review of Systems Review of Systems: Constitutional: No fever, sweats or chills Eyes: No diplopia, no worsening or blurred vision ENT: normal hearing, no trouble swallowing Respiratory: + cough, sputum, dyspnea at rest and exertion new today Cardiovascular: No chest pain, tightness or palpitations Abdomen: No pain, nausea, vomiting, diarrhea or constipation Musculoskeletal: No joint pain, calf pain, + lower leg swelling bilaterally, worse on the left Neurologic: No weakness, numbness/tingling, or balance problems Psychiatric: No anxiety or depression Skin: No rash or itch Physical Exam Physical Exam: General: awake, alert, no apparent distress, morbidly obese with BMI of 41.2 Head: Normocephalic, atraumatic ENT: PERRL, EOMI, no pharyngeal exudate, mucous membranes moist Chest: On bipap, diminished breath sounds throughout, faint expiratory wheeze heard in the posterior GRACIELA, no crackles or rales Cardiac: Regular rate and rhythm, + soft systolic murmur, no JVD, normal peripheral pulses, good capillary refill Abdominal: NABS x 4 quadrants, soft, nondistended, nontender to palpation, no rebound or guarding Extremities: Normal inspection,1+ peripheral pitting edema L>R, no erythema, calfs nontender to palpation Psych: Normal mood and affect Neuro: AAO x 3, strength intact bilaterally and rated 5/5, no motor deficits, speech is clear, no peripheral sensory deficits Results & Data Results & Data ([facility]) Vital Signs (Past 12 Hours) Vital Signs Temp Pulse Pulse Resp BP Pulse Ox O2 Del Method 10/24/22 14:15 71 19 95/54 L 96 BiPAP 10/24/22 14:01 76 19 104/52 L 96 Room Air 10/24/22 12:45 91 H 22 94 10/24/22 12:45 91 H 22 94 BiPAP 10/24/22 13:46 78 20 103/62 96 BiPAP 10/24/22 13:30 83 25 H 127/73 96 BiPAP 10/24/22 13:15 85 22 136/63 96 BiPAP 10/24/22 13:00 87 19 147/69 H 90 BiPAP 10/24/22 13:02 40 L Room Air 10/24/22 12:47 37.0 C 87 25 H 147/69 H 91 BiPAP FiO2 10/24/22 14:15 10/24/22 14:01 10/24/22 12:45 70 10/24/22 12:45 70 10/24/22 13:46 10/24/22 13:30 10/24/22 13:15 10/24/22 13:00 10/24/22 13:02 10/24/22 12:47 Laboratory Results Short CBC 10/24/22 Range/Units 12:54 WBC 14.38 H (4.8-10.8) K/ul Hgb 12.7 (12.0-16.0) g/dl Hct 42.7 (37.0-47.0) % Plt Count 282 (130-400) K/uL BMP 10/24/22 12:54 Sodium 140 Potassium 5.2 H Chloride 102 Carbon Dioxide 33 H BUN 30 H Creatinine 0.71 Glucose 228 H Calcium 9.5 Liver Function 10/24/22 Range/Units 12:54 Total Bilirubin 0.4 (0.2-1.0) mg/dl Direct Bilirubin 0.0 (0-0.2) mg/dl AST 20 (13-39) U/L ALT 35 (7-52) U/L Alkaline Phosphatase 103 (34-104) U/L Albumin 4.3 (3.4-5.0) gm/dl Diagnostic Findings Chest X-Ray 10/24/22 12:43 XR chest 1V portable CLINICAL HISTORY: short of breath. Lung cancer. COMPARISON STUDY: Chest radiograph October 18, 2022. Chest CT October 19, 2022. FINDINGS: The known right lower lobe lesion is obscured on this exam. There is no pneumothorax. Small bilateral pleural effusions with associated bibasilar opacities are greater on the right. Cardiomegaly is unchanged. Interstitial pulmonary edema persists. IMPRESSION: 1. Persistent pulmonary edema. 2. Small bilateral pleural effusions with associated bibasilar opacities, greater on the right. ACT 112: Negative or not required by law. Electronically signed by: Nehemias Holt M.D. 10/24/2022 1:11 PM ECG Additional Comments: 24-OCT-2022 12:48:01 [facility]-EDSTAT ROUTINE RETRIEVAL Normal sinus rhythm Low voltage QRS Borderline ECG When compared with ECG of 18-OCT-2022 13:15, No significant change was found 25mm/s10mm/[id number] 241 HDCID: 12Referred by: REFERRED SELF Unconfirmed Vent. rate 92 BPM TX interval 148 ms QRS duration 86 ms QT/QTc 348/430 ms Code Status & VTE Plan Code Status Full code Supervising Physician Co-Signing Physician Notes I have seen and examined the patient and have discussed the case with the provider above. I agree with the assessment and plan as stated with the following exceptions. 67-year-old female presented in acute respiratory failure with hypercarbia. She reports starting to feel more short of breath last night but was able to sleep without much issue. She did report trying to go to the bathroom overnight and was short of breath with exertion. This morning her breathing became worse as she was driving. She has been on BiPAP and is feeling better but remains acidotic. She denies any fevers or other acute symptoms leading up to this and has been on antibiotics for the past week including what was given to her in the hospital. On physical exam she is morbidly obese and in NAD on BIPAP. She is mentating clearly. Lung sounds are diminished but present throughout, decreased at the bases and with scant wheezing. Cardiac exam reveals regular rate and rhythm with S1/2 heard and no murmurs. There is no peripheral edema present. Abdomen is soft NTND. She has no gross focal neuromuscular deficits present. Her BP coming in was 95/54. She was recently admitted for acute on chronic respiratory failure with hypoxia, acute diastolic CHF and was given intravenous diuretics and a course of antibiotics. Work-up reveals a CBC with an elevated white blood cell count of 14 K. H&H is normal and MCV is 104. ABG reveals pH of 7.06 with a PCO2 of greater than 115 and a PO2 of 172. Chemistry reveals a normal sodium with a potassium of 5.2, CO2 of 33, BUN 30 and creatinine 0.71. Glucose is elevated at 228. Lactate is 1.1. Mag is 1.8. LFTs are within normal limits. Highly sensitive troponin is 18 and trended up to 53. BNP is 291. Procalcitonin is pending. Flu RSV and COVID swab is negative. Chest x-ray reveals persistent pulmonary edema with small bilateral pleural effusions and associated bibasilar opacities greater on the right. 1. Acute respiratory failure with acute respiratory acidosis 2. Acute heart failure exacerbation with pulmonary edema 3. Recently treated for pneumonia 4. 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 5. h/o right lower lobe NSCLC (adenocarcinoma) s/p XRT therapy 6. BHAVIK on CPAP Admitted to PCU and continued on BIPAP. Persistent respiratory acidosis after 2-3 hours on BIPAP. Lasix was originally held because of hypotension, however, was then able to give after BP anuel to 140. With ongoing need for persistent BIPAP, nitro paste was later then added. Consulting ICU to assist to evaluate her for intubation. After discussion, will plan to repeat ABG now as she is mentating well. Will plan to continue with intravenous lasix. She has completed a course of antibiotics, so will hold off on this now. Recent echo performed on 10/19 with Grade I diastolic dysfunction, pulmonary hypertension, preserved right and left systolic function, and EF 55-60%. Rising troponin is likely related to demand ischemia in setting of acute heart failure exacerbation. DO Neo (1) Pulmonary edema Chronicity: acute Qualified Code(s): J81.0 - Acute pulmonary edema
--- NOTE | 2022-10-24 17:25 | Electrocardiogram Report ---
Test Reason : Blood Pressure : / mmHG Vent. Rate : 092 BPM Atrial Rate : 092 BPM P-R Int : 148 ms QRS Dur : 086 ms QT Int : 348 ms P-R-T Axes : 055 062 037 degrees QTc Int : 430 ms Normal sinus rhythm Low voltage QRS Borderline ECG When compared with ECG of 18-OCT-2022 13:15, No significant change was found Confirmed by Bipin De Anda ([id number]) on 10/24/2022 5:25:07 PM Referred By: REFERRED SELF Confirmed By:Bipin De Anda
[2022-10-24 17:44] LABS: Base Excess ABG 0.5 mEq/L (-9-1.8); HCO3 ABG 31 mmol/L (19-24); PCO2 ABG 84 mmHg (35-46); PO2 ABG 77 mmHg (80-95)
[2022-10-24] MEDS ORDERED: ONDANSETRON INJ 2 MG/ML 2 ML VIAL IV PRN (18:34)
[2022-10-24] MEDS ORDERED: DEXTROSE 50% 50 ML SYRINGE IV PRN (18:34)
[2022-10-24] MEDS ORDERED: FUROSEMIDE 40 MG/4 ML VIAL IV ONE (18:34)
[2022-10-24] MEDS ORDERED: FLUTICASONE PROPIONATE NA SPR 16 GM BTL PRN (18:34)
[2022-10-24] MEDS ORDERED: GLUCOSE 10 TAB/TUBE PO PRN (18:34)
[2022-10-24] MEDS ORDERED: GLUCAGON FOR INJ 1 MG VIAL SQ PRN (18:34)
[2022-10-24] MEDS ORDERED: CARBOHYDRATES FOR HYPOGLYCEMIA PO PRN (18:34)
[2022-10-24] MEDS ORDERED: GLUCOSE 40% GEL 15 GM TUBE PO PRN (18:34)
[2022-10-24 18:59] LABS: pH ABG 7.18 (7.35-7.45)
[2022-10-24 19:01] LABS: Allen Test Pos (Pos)
[2022-10-24] MEDS: INSULIN ASPART PER UNIT SC SCH ×2 (19:33→21:00)
[2022-10-24] MEDS: NITROGLYCERIN 2% OINTMENT 30GM TUBE EXT SCH (20:00)
[2022-10-24] MEDS: ALBUT/IPRATROP 3MG/0.5MG NEB 3 ML VIAL NEB SCH ×2 (20:19→23:33)
[2022-10-24] MEDS: methylPREDNISolone 40 MG in SYRINGE 0 ML IV SCH (20:35)
[2022-10-24] MEDS: carvediloL 3.125 MG TAB PO SCH (20:38)
[2022-10-24 20:50] LABS: Base Excess ABG 6.2 mEq/L (-9-1.8); HCO3 ABG 36 mmol/L (19-24); Oxygen Saturation ABG 95.1 % (90-95); PCO2 ABG 81 mmHg (35-46); PO2 ABG 71 mmHg (80-95); pH ABG 7.26 (7.35-7.45)
[2022-10-24 21:00] LABS: Allen Test POS (Pos)
[2022-10-24] MEDS ORDERED: LANTUS PER UNIT CHARGE SQ SCH (21:00)
[2022-10-24] MEDS: LANTUS PER UNIT CHARGE SQ SCH (21:34)
--- NOTE | 2022-10-24 22:09 | Critical Care Consultation ---
Date of Consultation October 24, 2022 Assessment & Plan (1) Acute respiratory failure with hypoxia and hypercarbia: Impression: 67-year-old female with diastolic heart failure and severe COPD presents with acute on chronic hypoxic and hypercarbic respiratory failure, requiring continuous BiPAP. Neuro - [facility] ICU: Negative Cardiac - CADEKG with normal sinus rhythm, QTc 430. No ST elevations -Mildly elevated troponin likely due to demand ischemia in the setting of hypoxia. Trend - continue ASA Diastolic heart failureecho from 10/19/2022 with EF 55 to 60% and mild concentric left ventricular hypertrophy with grade 1 diastolic dysfunction, mild tricuspid regurg -BNP elevated to 91 on admission -Continue with diuresis 40 mg Lasix IV twice daily to maintain negative fluid balance -Strict I's and O's and daily weights -Continuous monitor on telemetry -Cardiology consulted Respiratory - Acute on chronic respiratory failure with hypercapnia and hypoxiaimproving with current therapy and BiPAP. Current BiPAP settings 14/8 on 60% FiO2. Most recent ABG 7.26/81/71/36 -Patient currently on 4 L nasal cannula at baseline for severe COPD. Suspect this is mixed etiology between heart failure and COPD exacerbation -Chest x-ray with small bilateral pleural effusions and bibasilar opacities a nd persistent pulmonary edema. Continue with diuresis to maintain negative fluid balance -Continue IV Solu-Medrol and scheduled DuoNeb every 4 hours -Follow-up repeat ABG and chest x-ray in a.m. -Continuous monitoring on pulse ox on PCU -Wean from BiPAP as tolerated -Sign off from ICU service and will follow with pulmonary GI - N.p.o. for now RENAL/LYTES - Creatinine within normal limits. Borderline elevated potassium of 5.2. Expect this will improve following albuterol and Lasix and no indication for treatment at this time. Follow-up on routine BMP in a.m. - Foleystrict I's and O's ENDO - DM type IIhold metformin in favor of sliding scale. Hyperglycemic protocol Hypothyroidcontinue Synthroid HEME - H&H stable, monitor routine CBC ID - Recent treatment for presumed pneumonia and completed 7 day course of antibiotics -COVID, influenza, RSV negative -Procalcitonin negative, lactate WNL, and afebrile. Mild leukocytosis which could be reactionary -No productive cough at this time to obtain sputum culture -Chest x-ray with small bilateral pleural effusions, bibasilar opacities, and persistent pulmonary edema -Hold on antibiotic therapy at this time and continue to trend fever curve LINES/IV ACCESS - Peripheral IVs DVT PROPHYLAXIS - Temo Solano Thank you for allowing us to participate in the care of this patient. Please refer to my attending physician's documentation for any further recommendations. (2) COPD with acute exacerbation: (3) Pulmonary edema: (4) BHAVIK on CPAP: (5) HTN (hypertension): (6) Acute on chronic diastolic CHF (congestive heart failure): (7) Diabetes mellitus, type II: (8) Obesity (BMI 30.0-34.9): (9) CAD (coronary artery disease): (10) HLD (hyperlipidemia): (11) Hypothyroid: History of Present Illness Attending Physician: Sheri Larson DO History of Present Illness Patient is a 67-year-old female with past medical history of COPD (on 4 L nasal cannula baseline), diastolic heart failure, CAD, HTN, hypothyroid, DM type II, BHAVIK (on CPAP at bedtime) who was recently admitted at the beginning of the month for acute on chronic respiratory failure where she was treated with antibiotics for suspected pneumonia and recently completed her 7-day course. Today patient became increasingly short of breath and was found in the ED parking light in her personal vehicle in acute respiratory distress with oxygen saturations in the 70s on 4 L. Patient was taken into the emergency department and placed on BiPAP. Her initial ABG showed CO2 greater than 115 and pH 7.0. She had elevated BNP and mildly elevated troponin. Repeat ABG showed some improvement following BiPAP and patient appeared to be comfortable. She was started on Solu-Medrol and nebulizers and was admitted to PCU. Diuresis was initially held due to soft blood pressure but was given this evening as patient became normotensive. I was consulted by the patient's primary team for persistent hypoxia and respiratory acidosis despite BiPAP. On evaluation the patient is alert and oriented without acute distress. Repeat ABG shows pH now 7.26 with CO2 81 and PO2 of 71 with FiO2 60% on BiPAP. Dominguez was inserted following IV Lasix administration and patient has produced 1 L of urine at this time. She curren tly denies dizziness, headache, fevers, sore throat, congestion, chest pain or palpitations, abdominal pain, nausea vomiting or diarrhea, swelling in hands and feet, changes in gait. She does report a chronic dry cough which has been ongoing for some time and worsening shortness of breath as of today. She denies shortness of breath while on BiPAP. At this time patient appears to be stable to remain in PCU. She is currently being monitored on continuous pulse ox. I did increase her BiPAP settings to 14/8 and will follow-up ABG in a.m. Agree with current plan with treatment of COPD and CHF exacerbations and would continue with diuresis, scheduled nebs, and IV Solu-Medrol. No ICU services needed at this time and would defer to pulmonary for further recommendations regarding respiratory failure. If patient were to deteriorate and need transfer to ICU, please recontact ICU services. Allergies Allergy/AdvReac Type Severity Reaction Status Date / Time metoprolol AdvReac Mild Hypertensio Verified 10/24/22 16:27 n tetracycline AdvReac Mild HEADACHE Verified 10/24/22 16:27 Home Medications Medication Instructions Recorded Confirmed Type aspirin 81 mg tablet,delayed 81 mg PO QAM 01/13/19 10/24/22 History release carvedilol 3.125 mg tablet 3.125 mg PO BID 01/13/19 10/24/22 History lisinopril 40 mg tablet 40 mg PO QAM 01/13/19 10/24/22 History furosemide 40 mg tablet (Lasix) 40 mg PO QAM #30 tabs 01/16/19 10/24/22 Rx Black Elderberry 1 tab PO QAM 03/18/21 10/24/22 History amlodipine 2.5 mg tablet 2.5 mg PO DAILY 03/18/21 10/24/22 History ezetimibe 10 mg tablet 10 mg PO DAILY 03/18/21 10/24/22 History metformin 500 mg tablet 500 mg PO BIDM 03/18/21 10/24/22 History albuterol sulfate 90 mcg/actuation 2 puff inhalation Q4 PRN Wheezing 03/19/22 10/24/22 History aerosol inhaler (Ventolin HFA) fluticasone propionate 50 2 spray intranasal DAILY PRN 03/19/22 10/24/22 History mcg/actuation nasal Congestion spray,suspension (Flonase Allergy Relief) cefuroxime axetil 500 mg tablet 500 mg PO BID 4 days #8 tabs 10/21/22 10/24/22 Rx doxycycline hyclate 100 mg capsule 100 mg PO BID 4 days #8 caps 10/21/22 10/24/22 Rx budesonide-formoterol HFA 80 2 inh inhalation AMHS 10/24/22 10/24/22 History mcg-4.5 mcg/actuation aerosol inhaler (Symbicort) levothyroxine 150 mcg tablet 150 mcg PO QAM 10/24/22 10/24/22 History tiotropium bromide 18 mcg capsule 1 cap inhalation QAM 10/24/22 10/24/22 History with inhalation device (Spiriva with HandiHaler) turmeric 400 mg capsule 400 mg PO DAILY 10/24/22 10/24/22 History Patient History Medical History (Updated 10/24/22 @ 16:54 by Siena Regan PA-C) Alcohol use CAD (coronary artery disease) NSTEMI 2008 - moderate nonobstructive disease, no stenting Carotid stenosis Chronic diastolic (congestive) heart failure Chronic respiratory failure with hypoxia Constipation COPD, group D, by GOLD 2017 classification Diabetes mellitus, type II HLD (hyperlipidemia) HTN (hypertension) Hypothyroid Obesity (BMI 30.0-34.9) BHAVIK on CPAP Primary cancer of right lower lobe of lung (01/31/22) s/p radiation Surgical History S/P cholecystectomy Family History Mother , age 69 Heart disease Rheumatoid arthritis Osteoarthritis Father , age 69 Myocardial infarction Asthma COPD (chronic obstructive pulmonary disease) Sister , age 29 Lung disease Other Diabetes Social History Smoking Status: Former smoker Tobacco Type: Cigarettes Age Started Using Tobacco: 18; Age Quit Using Tobacco: 60; packs per day: 2; Second Hand Exposure: No; Hx Alcohol Use: Yes Alcohol type: beer Alcohol type Comment: 3-5 coors light daily Alcohol Intake Frequency: 4 or More x per/Week Hx Substance Use: No Preferred Language: Ukrainian Communication Ability: Effective Vp Analysis Required: No Beliefs That Will Affect Care: None marital status: / Current Living Situation: Alone current occupational status: retired and disabled 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 [employer] How many Children do You have: 3 Other Information That Helps Us Care for You: No Feels Safe at Home: Yes Safety Concerns: Feels Safe At This Time caffeine: Yes (Diet pepsi - 4 cans/day) Assistive Devices: Glasses, Nebulizer and Oxygen - Continuous Review of Systems Review of Systems: All systems reviewed & are unremarkable except as noted in HPI & below Physical Exam Constitutional: + obese, cooperative and comfortable; no acute distress Eyes: PERRL, conjunctivae normal, anicteric sclerae ENMT: external ear and nose normal, oropharynx normal Neck: trachea midline, no thyromegaly Respiratory: normal respiratory effort and symmetric chest movement; no labored breathing and no tripod positioning Auscultation: lungs clear to auscultation bilaterally; no crackles and no wheezes Cardiovascular: RRR, no murmur, no edema Heart Sounds: normal S1 and normal S2 Vessels: no JVD Extremities: no edema Gastrointestinal (Abdomen): normal bowel sounds, soft, nontender, no hepato splenomegaly Musculoskeletal: no cyanosis or clubbing, extremities motor strength 5/5 Skin: no rashes, warm and dry Neurologic: PERRL, EOMI, accommodation nl, no face palsy, no dysarthria Psychiatric: A+Ox3, euthymic affect Genitourinary: Indwelling Dominguez catheter present Results & Data Results & Data ([facility]) Vital Signs (Past 12 Hours) Vital Signs Temp Pulse Pulse Pulse Resp BP BP 10/24/22 20:37 77 128/76 10/24/22 20:19 85 30 H 10/24/22 20:19 85 30 H 10/24/22 19:59 85 130/76 10/24/22 18:34 10/24/22 18:34 10/24/22 18:26 10/24/22 18:21 36.5 C 94 H 28 H 169/96 H 10/24/22 17:10 88 24 10/24/22 17:00 78 22 10/24/22 16:50 74 24 10/24/22 16:40 72 22 10/24/22 16:30 67 21 10/24/22 16:30 144/71 H 10/24/22 16:20 78 18 10/24/22 16:10 65 22 10/24/22 16:00 68 23 10/24/22 16:00 127/89 10/24/22 15:50 62 18 10/24/22 15:40 66 20 10/24/22 15:30 64 19 10/24/22 15:30 106/63 10/24/22 15:20 60 15 10/24/22 15:10 63 16 10/24/22 15:00 76 17 10/24/22 15:00 102/55 L 10/24/22 14:50 61 19 10/24/22 14:45 97/66 L 10/24/22 14:45 71 16 10/24/22 14:44 66 18 10/24/22 14:30 64 19 10/24/22 14:30 97/50 L 10/24/22 14:20 72 19 10/24/22 14:15 71 19 95/54 L 10/24/22 14:01 76 19 104/52 L 10/24/22 12:45 91 H 22 10/24/22 12:45 91 H 22 10/24/22 13:46 78 20 103/62 10/24/22 13:30 83 25 H 127/73 10/24/22 13:15 85 22 136/63 10/24/22 13:00 87 19 147/69 H 10/24/22 13:02 10/24/22 12:47 37.0 C 87 25 H 147/69 H Pulse Ox Pulse Ox O2 Del Method O2 Del Method FiO2 10/24/22 20:37 10/24/22 20:19 91 60 10/24/22 20:19 91 BiPAP 10/24/22 19:59 10/24/22 18:34 BiPAP 60 10/24/22 18:34 91 BiPAP 10/24/22 18:26 BiPAP 10/24/22 18:21 92 BiPAP 60 10/24/22 17:10 93 10/24/22 17:00 94 10/24/22 16:50 95 10/24/22 16:40 94 10/24/22 16:30 10/24/22 16:30 10/24/22 16:20 96 10/24/22 16:10 94 10/24/22 16:00 94 10/24/22 16:00 10/24/22 15:50 94 10/24/22 15:40 95 10/24/22 15:30 10/24/22 15:30 10/24/22 15:20 95 10/24/22 15:10 95 10/24/22 15:00 10/24/22 15:00 10/24/22 14:50 95 10/24/22 14:45 10/24/22 14:45 97 10/24/22 14:44 10/24/22 14:30 98 10/24/22 14:30 10/24/22 14:20 96 10/24/22 14:15 96 BiPAP 10/24/22 14:01 96 Room Air 10/24/22 12:45 94 70 10/24/22 12:45 94 BiPAP 70 10/24/22 13:46 96 BiPAP 10/24/22 13:30 96 BiPAP 10/24/22 13:15 96 BiPAP 10/24/22 13:00 90 BiPAP 10/24/22 13:02 40 L Room Air 10/24/22 12:47 91 BiPAP Coding Level of Care Code INP/OBS CONSULT LVL 3, 45 MIN Diagnoses Acute respiratory failure with hypoxia and hypercarbia J96.01; J96.02 COPD with acute exacerbation J44.1 Pulmonary edema J81.0 Chronicity: acute BHAVIK on CPAP G47.33; Z99.89 HTN (hypertension) I10 Acute on chronic diastolic CHF (congestive heart failure) I50.33 Diabetes mellitus, type II E11.9 Obesity (BMI 30.0-34.9) E66.9 CAD (coronary artery disease) I25.10 HLD (hyperlipidemia) E78.5 Hypothyroid E03.9 Time Spent (min) 55 (1) Pulmonary edema Chronicity: acute Qualified Code(s): J81.0 - Acute pulmonary edema
[2022-10-25] MEDS: INSULIN ASPART PER UNIT SC SCH ×4 (00:02→18:26)
[2022-10-25] MEDS: NITROGLYCERIN 2% OINTMENT 30GM TUBE EXT SCH ×4 (01:50→20:13)
[2022-10-25] MEDS: ALBUT/IPRATROP 3MG/0.5MG NEB 3 ML VIAL NEB SCH ×5 (02:16→19:18)
[2022-10-25] MEDS: LEVOTHYROXINE SODIUM 150 MCG TABLET PO SCH (05:51)
[2022-10-25 06:09] LABS: Base Excess ABG 3.4 mEq/L (-9-1.8); HCO3 ABG 33 mmol/L (19-24); Oxygen Saturation ABG 97.4 % (90-95); PCO2 ABG 73 mmHg (35-46); PO2 ABG 89 mmHg (80-95); pH ABG 7.26 (7.35-7.45)
[2022-10-25 06:19] LABS: Hematocrit (blood only) 36.2 % (37.0-47.0); Hemoglobin 11.1 g/dl (12.0-16.0); Mean Corpuscular Hemoglobin 31.1 pg (25.0-34.0); Mean Corpuscular Hgb Conc 30.7 g/dL (32.0-36.0); Mean Corpuscular Volume 101.4 fL (80.0-100.0); Mean Platelet Volume 10.8 fL (9.4-12.4); Platelet Count 213 K/uL (130-400); RDW Coefficient of Variation 13.7 % (11.5-14.5); RDW Standard Deviation 51.6 fL (36.4-46.3); Red Blood Count 3.57 M/uL (4.20-5.40); White Blood Count 6.89 K/ul (4.8-10.8)
[2022-10-25 06:20] LABS: Allen Test Pos (Pos)
[2022-10-25 06:33] LABS: BUN Creatinine Ratio 48.4 (10-20); Calcium 9.5 mg/dl (8.5-10.1); Creatinine Clr Calc Pharmacy 101.2 ml/min; Est GFR (African American) 108.5 ml/min; Est GFR (Non-African American) 93.6 ml/min; Magnesium 1.8 mg/dl (1.7-2.4)
[2022-10-25] MEDS ORDERED: FUROSEMIDE 40 MG/4 ML VIAL IV STA (07:15)
[2022-10-25] MEDS ORDERED: DEXTROSE 50% 50 ML SYRINGE IV STA ×2 (07:38)
[2022-10-25] MEDS ORDERED: ALBUTEROL 0.5% NEB SOLN 2.5 MG/0.5 ML VIAL NEB STA (07:38)
[2022-10-25] MEDS ORDERED: INSULIN HUMAN REGULAR PER UNIT 10 UNITS in SYRINGE 0 ML IV STA (07:38)
[2022-10-25] MEDS ORDERED: STAT IV STA ×2 (07:38)
[2022-10-25] MEDS ORDERED: CALCIUM GLUCONATE 10% 1,000 MG in DEXTROSE 5% 50 ML IV ONE (07:38)
[2022-10-25] MEDS ORDERED: CALCIUM GLUCONATE 10% 1,000 MG in DEXTROSE 5% 50 ML IV STA (07:38)
--- NOTE | 2022-10-25 07:39 | Critical Care Progress Note ---
Date of Service October 25, 2022 Assessment & Plan (1) Acute respiratory failure with hypoxia and hypercarbia: (2) COPD with acute exacerbation: (3) Pulmonary edema: (4) BHAVIK on CPAP: (5) HTN (hypertension): (6) Acute on chronic diastolic CHF (congestive heart failure): (7) Diabetes mellitus, type II: (8) Obesity (BMI 30.0-34.9): (9) CAD (coronary artery disease): (10) HLD (hyperlipidemia): (11) Hypothyroid: Plan Impression: 67-year-old female with diastolic heart failure and severe COPD presents with acute on chronic hypoxic and hypercarbic respiratory failure, requ iring continuous BiPAP. Neuro - [facility] ICU: Negative Cardiac - CADEKG with normal sinus rhythm, QTc 430. No ST elevations -- Elevated troponin Likely type II [place] Continue to trend Diastolic heart failureecho from 10/19/2022 with EF 55 to 60% and mild concentric left ventricular hypertrophy with grade 1 diastolic dysfunction, mild tricuspid regurg -BNP elevated to 91 on admission -Continue with diuresis -Strict I's and O's and daily weights -Continuous monitor on telemetry -Cardiology on board Respiratory - Acute on chronic respiratory failure with hypercapnia and hypoxia Combination of CHF and COPD exacerbation BiPAP nightly and as needed shortness of breath GI - N.p.o. for now RENAL/LYTES - --Hyperkalemia Give hyperkalemia cocktail Repeat BMP in 4 hours - Foleystrict I's and O's ENDO - DM type II Continue with ICU hypoglycemia protocol Hypothyroid continue Synthroid HEME - H&H stable, monitor routine CBC ID - Recent treatment for presumed pneumonia and completed 7 day course of antibiotics -COVID, influenza, RSV negative -Procalcitonin negative, lactate WNL, and afebrile. Mild leukocytosis which could be reactionary -No productive cough at this time to obtain sputum culture -Chest x-ray with small bilateral pleural effusions, bibasilar opacities, and persistent pulmonary edema -Hold on antibiotic therapy at this time and continue to trend fever curve --Prophylaxis VTE: Lovenox GI: Pantoprazole Lines: Peripheral Diet: N.p.o. Plan: In/out: -750 mL Patient oxygen requirement is increasing. Give 40 mg of Lasix right now IV We will consider increasing to 40 mg every 8 hours based on the response. Potassium is trending up. We will give the patient Lokelma 10 mg 3 times daily. Hyperkalemia cocktail given to the patient Continue steroid for now. We will make adjustment to the IPAP Change Breo to nebulized Brovana and budesonide If there is any worsening in the respiratory status will intubate the patient Case was discussed with cardiology Magnesium being replaced I have personally spent 55 minutes of critical care time in the direct management of this patient. This is a life/limb threatening event. This includes time spent evaluating patient, direct bedside care, chart review, placing orders, interpretation of diagnostic studies, discussion with consultants, patient, and family members, as well as other required patient management activities. This time is exclusive of all separately billable procedures, and teaching time and separate from and in addition to any other critical care service time. Please note the above document was generated using voice recognition software. It may contain grammatical, syntax or spelling errors. Admission and Anticipated Discharge Date Admission Date: October 24, 2022 Subjective Patient seen and examined at bedside in the ICU. No acute distress She was on BiPAP 14/5, 70% saturating 94% I changed the BiPAP setting to 16/8, 60%. She says she was feeling better since coming to the hospital Denies any chest pain, has been coughing and bringing up clear phlegm Denies any fever. Occasional chills No dysuria, no diarrhea Review of Systems Review of Systems: All systems reviewed & are unremarkable except as noted in Subjective Physical Exam Physical Exam: Constitutional: No acute distress HEENT: EOMI, PERRLA Respiratory system: Decreased air entry bilaterally, no wheeze, rhonchi, positive crackles bilateral lower lobes CVS: S1-S2 positive, no murmurs or gallops, distant heart sounds Abdomen: Soft, nontender, nondistended, positive bowel sounds x4, obese Extremities: +2 pulses bilaterally radialis/ dorsalis pedis, no cyanosis, +2 pitting edema bilateral lower extremity Neuro: Awake alert oriented x3 Psych: Normal mood and affect G/U: Positive Dominguez Skin: no rashes, warm and dry Lymphatic: no cervical or axillary lymphadenopathy Results & Data Results & Data ([facility]) Vital Signs (Past 12 Hours) Vital Signs Temp Pulse Pulse Pulse Resp BP BP 10/25/22 07:11 92 H 23 10/25/22 07:11 92 H 23 10/25/22 04:26 36.7 C 83 20 151/77 H 10/25/22 02:22 68 15 10/25/22 02:17 68 15 10/25/22 01:47 78 112/72 10/24/22 23:29 76 10/24/22 23:06 37.0 C 72 18 121/69 10/24/22 20:00 10/24/22 23:33 67 17 10/24/22 23:33 68 17 10/24/22 20:37 77 128/76 10/24/22 20:19 85 30 H 10/24/22 20:19 85 30 H 10/24/22 19:49 85 130/76 Pulse Ox O2 Del Method FiO2 10/25/22 07:11 95 70 10/25/22 07:11 95 BiPAP 70 10/25/22 04:26 93 BiPAP 10/25/22 02:22 92 80 10/25/22 02:17 92 BiPAP 80 10/25/22 01:47 10/24/22 23:29 10/24/22 23:06 90 BiPAP 10/24/22 20:00 BiPAP 10/24/22 23:33 92 70 10/24/22 23:33 93 BiPAP 70 10/24/22 20:37 10/24/22 20:19 91 60 10/24/22 20:19 91 BiPAP 10/24/22 19:49 Laboratory Results 10/25/22 06:00 10/25/22 06:00 Coding Level of Care Code Critical Care 1st 30-74 mins Diagnoses Acute respiratory failure with hypoxia and hypercarbia J96.01; J96.02 COPD with acute exacerbation J44.1 Pulmonary edema J81.0 Chronicity: acute BHAVIK on CPAP G47.33; Z99.89 HTN (hypertension) I10 Acute on chronic diastolic CHF (congestive heart failure) I50.33 Diabetes mellitus, type II E11.9 Obesity (BMI 30.0-34.9) E66.9 CAD (coronary artery disease) I25.10 HLD (hyperlipidemia) E78.5 Hypothyroid E03.9 Time Spent (min) 55 (1) Pulmonary edema Chronicity: acute Qualified Code(s): J81.0 - Acute pulmonary edema
[2022-10-25] MEDS ORDERED: INSULIN HUMAN REGULAR PER UNIT 10 UNITS in SYRINGE 9.9 ML IV STA (07:42)
[2022-10-25] MEDS: methylPREDNISolone 40 MG in SYRINGE 0 ML IV SCH ×2 (08:01→20:11)
[2022-10-25] MEDS ORDERED: FLUTICASONE/VILANTEROL 100/25MCG 14 PUFFS/INHALER INH SCH (09:00)
[2022-10-25] MEDS ORDERED: amLODIPine BESYLATE 5 MG TAB PO SCH (09:00)
[2022-10-25] MEDS ORDERED: LEVOTHYROXINE SODIUM 150 MCG TABLET PO SCH (09:00)
[2022-10-25] MEDS ORDERED: lisinopril 40 MG TAB PO SCH (09:00)
[2022-10-25] MEDS: FUROSEMIDE 40 MG/4 ML VIAL IV SCH ×2 (09:39→20:09)
[2022-10-25] MEDS: EZETIMIBE 10 MG TABLET PO SCH (10:20)
[2022-10-25] MEDS: ENOXAPARIN INJ 40 MG/0.4 ML SYR SQ SCH ×2 (10:20→10:35)
[2022-10-25] MEDS: ASPIRIN 81 MG ECTAB PO SCH (10:20)
[2022-10-25] MEDS: UMECLIDINIUM BROMIDE 62.5MCG/BLISTER 7 PUFFS/INHALER INH SCH (10:21)
[2022-10-25] MEDS: carvediloL 3.125 MG TAB PO SCH ×2 (10:21→20:14)
[2022-10-25] MEDS: PANTOprazole 40 MG in SYRINGE 0 ML IV SCH (10:21)
[2022-10-25] MEDS: SODIUM ZIRCONIUM CYCLOSILICATE 10 GM PACKET PO SCH ×3 (10:22→20:14)
[2022-10-25] MEDS: LANTUS PER UNIT CHARGE SQ SCH ×2 (10:31→20:25)
[2022-10-25 12:18] LABS: iSTAT Allen Test Pass; iSTAT Arterial Blood Gas HCO3 37 meg/L (19-24); iSTAT Arterial Blood Gas pCO2 64 mmHg (35-46); iSTAT Arterial Blood Gas pH 7.37 (7.35-7.45); iSTAT Arterial Blood Gas pO2 67 mmHg (80-95); iSTAT Carbon Dioxide 39 mmol/L (24-31); iSTAT FiO2 50 %; iSTAT Site R Radial
--- NOTE | 2022-10-25 12:26 | Cardiology Consultation ---
Date of Consultation October 25, 2022 Assessment & Plan (1) Acute respiratory failure with hypoxia and hypercarbia: (2) Acute respiratory acidosis: (3) Acute on chronic diastolic CHF (congestive heart failure): Plan Patient is a 67-year-old female who presents with acute hypoxic and hypercarbic respiratory failure with mixed etiology with underlying hypoxic obstructive lung disease superimposed on diastolic heart failure. Patient being treated with BiPAP in the intensive care unit Agree with plans as already begun including IV diuretics watching for contraction alkalosis, respiratory support Appears improved by patient description and staff description with the use of BiPAP support and diuresis LV systolic function recently assessed with preserved ejection fraction 1 week ago Troponins mildly elevated but flat likely secondary to demand ischemia of acute acidosis and respiratory failure We will continue to follow patient in hospital History of Present Illness Reason for Consultation: Diastolic heart failure, hypercarbic respiratory failure Requesting Physician: Dr. Larson Attending Physician: Sheri Larson, DO History of Present Illness Patient is a 67-year-old female with complex issues which include 1. Chronic obstructive lung disease with chronic hypoxia, O2 dependent group D. Gold criteria 2. Right lower lung carcinoma status postradiation therapy diagnosis January 2022 3. Chronic diastolic heart failure with preserved ejection fraction EF 55 to 60% 4. Morbid obesity 5. Atherosclerotic coronary disease, non-ST segment elevation myocardial infarction 2008 with mild nonobstructive coronary coronary disease, [facility] 6. Hypertension Patient presents with acute hypercarbic respiratory failure with collapse. Recent hospitalization for COPD exacerbation, diastolic heart failure Currently in intensive care unit using BiPAP respiratory support She denies any chest pains or discomfort and is able to vocalize through mask. No arrhythmias on telemetry No edema Persistent vascular congestion on chest x-rays in comparison over the past admission Currently responding to IV diuretics Allergies Allergy/AdvReac Type Severity Reaction Status Date / Time metoprolol AdvReac Mild Hypertensio Verified 10/24/22 16:27 n tetracycline AdvReac Mild HEADACHE Verified 10/24/22 16:27 Home Medications Medication Instructions Recorded Confirmed Type aspirin 81 mg tablet,delayed 81 mg PO QAM 01/13/19 10/24/22 History release carvedilol 3.125 mg tablet 3.125 mg PO BID 01/13/19 10/24/22 History lisinopril 40 mg tablet 40 mg PO QAM 01/13/19 10/24/22 History furosemide 40 mg tablet (Lasix) 40 mg PO QAM #30 tabs 01/16/19 10/24/22 Rx Black Elderberry 1 tab PO QAM 03/18/21 10/24/22 History amlodipine 2.5 mg tablet 2.5 mg PO DAILY 03/18/21 10/24/22 History ezetimibe 10 mg tablet 10 mg PO DAILY 03/18/21 10/24/22 History metformin 500 mg tablet 500 mg PO BIDM 03/18/21 10/24/22 History albuterol sulfate 90 mcg/actuation 2 puff inhalation Q4 PRN Wheezing 03/19/22 10/24/22 History aerosol inhaler (Ventolin HFA) fluticasone propionate 50 2 spray intranasal DAILY PRN 03/19/22 10/24/22 History mcg/actuation nasal Congestion spray,suspension (Flonase Allergy Relief) cefuroxime axetil 500 mg tablet 500 mg PO BID 4 days #8 tabs 10/21/22 10/24/22 Rx doxycycline hyclate 100 mg capsule 100 mg PO BID 4 days #8 caps 10/21/22 10/24/22 Rx budesonide-formoterol HFA 80 2 inh inhalation [facility] 10/24/22 10/24/22 History mcg-4.5 mcg/actuation aerosol inhaler (Symbicort) levothyroxine 150 mcg tablet 150 mcg PO QAM 10/24/22 10/24/22 History tiotropium bromide 18 mcg capsule 1 cap inhalation QAM 10/24/22 10/24/22 History with inhalation device (Spiriva with HandiHaler) turmeric 400 mg capsule 400 mg PO DAILY 10/24/22 10/24/22 History Patient History Medical History Alcohol use CAD (coronary artery disease) NSTEMI 2008 - moderate nonobstructive disease, no stenting Carotid stenosis Chronic diastolic (congestive) heart failure Chronic respiratory failure with hypoxia Constipation COPD, group D, by GOLD 2017 classification Diabetes mellitus, type II HLD (hyperlipidemia) HTN (hypertension) Hypothyroid Obesity (BMI 30.0-34.9) BHAVIK on CPAP Primary cancer of right lower lobe of lung (01/31/22) s/p radiation Surgical History S/P cholecystectomy Family History Mother , age 69 Heart disease Rheumatoid arthritis Osteoarthritis Father , age 69 Myocardial infarction Asthma COPD (chronic obstructive pulmonary disease) Sister , age 29 Lung disease Other Diabetes Social History Smoking Status: Former smoker Tobacco Type: Cigarettes Age Started Using Tobacco: 18; Age Quit Using Tobacco: 60; packs per day: 2; Second Hand Exposure: No; Hx Alcohol Use: Yes Alcohol type: beer Alcohol type Comment: 3-5 coors light daily Alcohol Intake Frequency: 4 or More x per/Week Hx Substance Use: No Preferred Language: Maltese Communication Ability: Effective Chip Applying Machine Tender Required: No Beliefs That Will Affect Care: None marital status: / Current Living Situation: Alone current occupational status: retired and disabled 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 [employer] How many Children do You have: 3 Other Information That Helps Us Care for You: No Feels Safe at Home: Yes Safety Concerns: Feels Safe At This Time caffeine: Yes (Diet pepsi - 4 cans/day) Assistive Devices: CPAP and Oxygen - Continuous Review of Systems Review of Systems: All systems reviewed & are unremarkable except as noted in HPI & below Physical Exam Constitutional: + obese On BiPAP supplementation Eyes: PERRL, conjunctivae normal, anicteric sclerae ENMT: external ear and nose normal, oropharynx normal Neck: + thick neck Respiratory: + audible wheezes (And rhonchi with forced cough) Cardiovascular: RRR, no murmur, no edema Extremities: no edema Gastrointestinal (Abdomen): Percussion/Palpation: abdomen soft (With large panniculus) Musculoskeletal: no cyanosis or clubbing, extremities motor strength 5/5 Results & Data ([facility]) Vital Signs (Past 12 Hours) Vital Signs Temp Pulse Pulse Pulse Resp BP BP 10/25/22 11:09 73 20 10/25/22 09:27 10/25/22 08:39 98 H 16 10/25/22 08:39 98 H 23 10/25/22 08:27 36.5 C 72 22 117/70 10/25/22 07:52 67 10/25/22 07:11 92 H 23 10/25/22 07:11 92 H 23 10/25/22 04:26 36.7 C 83 20 151/77 H 10/25/22 02:22 68 15 10/25/22 02:17 68 15 10/25/22 01:47 78 112/72 Pulse Ox O2 Del Method FiO2 10/25/22 11:09 92 BiPAP 50 10/25/22 09:27 BiPAP 0.7 10/25/22 08:39 93 70 10/25/22 08:39 93 BiPAP 70 10/25/22 08:27 96 BiPAP 10/25/22 07:52 10/25/22 07:11 95 70 10/25/22 07:11 95 BiPAP 70 10/25/22 04:26 93 BiPAP 10/25/22 02:22 92 80 10/25/22 02:17 92 BiPAP 80 10/25/22 01:47 Laboratory Results Laboratory Results - last 24 hr 10/24/22 10/24/22 10/24/22 12:49 12:54 12:54 WBC 14.38 H RBC 4.11 L Hgb 12.7 POC Hgb 14.3 Hct 42.7 POC Hct 42 MCV 103.9 H MCH 30.9 MCHC 29.7 L RDW Std Deviation 53.0 H RDW Coeff of Naa 13.8 Plt Count 282 MPV 10.9 Immature Gran % (Auto) 1.0 Neut % (Auto) 79.1 Lymph % (Auto) 10.4 [place] % (Auto) 7.5 Eos % (Auto) 1.3 Baso % (Auto) 0.7 Neut # (Auto) 11.37 H Lymph # (Auto) 1.49 [place] # (Auto) 1.08 H Eos # (Auto) 0.19 Baso # (Auto) 0.10 Immature Gran # (Auto) 0.15 PT 10.9 INR 1.0 Sample Site POC pH 7.06 L* POC pCO2 > 115 H POC pO2 172 H POC HCO3 33 H POC Total CO2 36 H POC Base Excess 3.0 H ABG pH ABG pCO2 ABG pO2 ABG HCO3 POC ABG O2 Sat 99.0 H ABG O2 Saturation ABG Base Excess Christian Test Oxygen Given O2 Delivery Device POC O2 Rate POC FiO2 IPAP POC Sodium 140 Sodium POC Potassium 5.2 H Potassium Chloride Carbon Dioxide Anion Gap BUN Creatinine Est Cr Clr Drug Dosing Est GFR ( Amer) Est GFR (Non-Af Amer) BUN/Creatinine Ratio Glucose POC Glucose Lactate Calcium Magnesium Total Bilirubin Direct Bilirubin AST ALT Alkaline Phosphatase Troponin I High Sens B-Natriuretic Peptide Total Protein Albumin Procalcitonin SARS-CoV-2 (PCR) Influenza Type A (PCR) Influenza Type B (PCR) RSV (RT-PCR) 10/24/22 10/24/22 10/24/22 12:54 12:54 12:54 WBC RBC Hgb POC Hgb Hct POC Hct MCV MCH MCHC RDW Std Deviation RDW Coeff of Naa Plt Count MPV Immature Gran % (Auto) Neut % (Auto) Lymph % (Auto) [place] % (Auto) Eos % (Auto) Baso % (Auto) Neut # (Auto) Lymph # (Auto) [place] # (Auto) Eos # (Auto) Baso # (Auto) Immature Gran # (Auto) PT INR Sample Site POC pH POC pCO2 POC pO2 POC HCO3 POC Total CO2 POC Base Excess ABG pH ABG pCO2 ABG pO2 ABG HCO3 POC ABG O2 Sat ABG O2 Saturation ABG Base Excess Christian Test Oxygen Given O2 Delivery Device POC O2 Rate POC FiO2 IPAP POC Sodium Sodium 140 POC Potassium Potassium 5.2 H Chloride 102 Carbon Dioxide 33 H Anion Gap 5 BUN 30 H Creatinine 0.71 Est Cr Clr Drug Dosing 91.8 Est GFR ( Amer) 103.6 Est GFR (Non-Af Amer) 89.4 BUN/Creatinine Ratio 42.3 H Glucose 228 H POC Glucose Lactate Calcium 9.5 Magnesium 1.8 Total Bilirubin 0.4 Direct Bilirubin 0.0 AST 20 ALT 35 Alkaline Phosphatase 103 Troponin I High Sens 18.8 H B-Natriuretic Peptide 291 H Total Protein 8.4 H Albumin 4.3 Procalcitonin < 0.05 SARS-CoV-2 (PCR) Influenza Type A (PCR) Influenza Type B (PCR) RSV (RT-PCR) 10/24/22 10/24/22 10/24/22 16:43 16:44 17:06 WBC RBC Hgb POC Hgb Hct POC Hct MCV MCH MCHC RDW Std Deviation RDW Coeff of Naa Plt Count MPV Immature Gran % (Auto) Neut % (Auto) Lymph % (Auto) [place] % (Auto) Eos % (Auto) Baso % (Auto) Neut # (Auto) Lymph # (Auto) [place] # (Auto) Eos # (Auto) Baso # (Auto) Immature Gran # (Auto) PT INR Sample Site POC pH POC pCO2 POC pO2 POC HCO3 POC Total CO2 POC Base Excess ABG pH 7.18 L* ABG pCO2 84 H ABG pO2 77 L ABG HCO3 31 H POC ABG O2 Sat ABG O2 Saturation 95.0 ABG Base Excess 0.5 Christian Test Pos Oxygen Given 60% FIO2 O2 Delivery Device POC O2 Rate POC FiO2 IPAP POC Sodium Sodium POC Potassium Potassium Chloride Carbon Dioxide Anion Gap BUN Creatinine Est Cr Clr Drug Dosing Est GFR ( Amer) Est GFR (Non-Af Amer) BUN/Creatinine Ratio Glucose POC Glucose Lactate 1.1 Calcium Magnesium Total Bilirubin Direct Bilirubin AST ALT Alkaline Phosphatase Troponin I High Sens 52.8 H* D B-Natriuretic Peptide Total Protein Albumin Procalcitonin SARS-CoV-2 (PCR) Influenza Type A (PCR) Influenza Type B (PCR) RSV (RT-PCR) 10/24/22 10/24/22 10/24/22 18:47 19:42 20:32 WBC RBC Hgb POC Hgb Hct POC Hct MCV MCH MCHC RDW Std Deviation RDW Coeff of Naa Plt Count MPV Immature Gran % (Auto) Neut % (Auto) Lymph % (Auto) [place] % (Auto) Eos % (Auto) Baso % (Auto) Neut # (Auto) Lymph # (Auto) [place] # (Auto) Eos # (Auto) Baso # (Auto) Immature Gran # (Auto) PT INR Sample Site POC pH POC pCO2 POC pO2 POC HCO3 POC Total CO2 POC Base Excess ABG pH 7.26 L ABG pCO2 81 H ABG pO2 71 L ABG HCO3 36 H POC ABG O2 Sat ABG O2 Saturation 95.1 H ABG Base Excess 6.2 H Christian Test POS Oxygen Given 60% O2 Delivery Device POC O2 Rate POC FiO2 IPAP POC Sodium Sodium POC Potassium Potassium Chloride Carbon Dioxide Anion Gap BUN Creatinine Est Cr Clr Drug Dosing Est GFR ( Amer) Est GFR (Non-Af Amer) BUN/Creatinine Ratio Glucose POC Glucose 159 H 159 H Lactate Calcium Magnesium Total Bilirubin Direct Bilirubin AST ALT Alkaline Phosphatase Troponin I High Sens B-Natriuretic Peptide Total Protein Albumin Procalcitonin SARS-CoV-2 (PCR) Influenza Type A (PCR) Influenza Type B (PCR) RSV (RT-PCR) 02/10/23 02/10/23 02/10/23 23:09 23:54 Unknown WBC RBC Hgb POC Hgb Hct POC Hct MCV MCH MCHC RDW Std Deviation RDW Coeff of Naa Plt Count MPV Immature Gran % (Auto) Neut % (Auto) Lymph % (Auto) [place] % (Auto) Eos % (Auto) Baso % (Auto) Neut # (Auto) Lymph # (Auto) [place] # (Auto) Eos # (Auto) Baso # (Auto) Immature Gran # (Auto) PT INR Sample Site POC pH POC pCO2 POC pO2 POC HCO3 POC Total CO2 POC Base Excess ABG pH ABG pCO2 ABG pO2 ABG HCO3 POC ABG O2 Sat ABG O2 Saturation ABG Base Excess Christian Test Oxygen Given O2 Delivery Device POC O2 Rate POC FiO2 IPAP POC Sodium Sodium POC Potassium Potassium Chloride Carbon Dioxide Anion Gap BUN Creatinine Est Cr Clr Drug Dosing Est GFR ( Amer) Est GFR (Non-Af Amer) BUN/Creatinine Ratio Glucose POC Glucose 137 H Lactate Calcium Magnesium Total Bilirubin Direct Bilirubin AST ALT Alkaline Phosphatase Troponin I High Sens 65.0 H* D B-Natriuretic Peptide Total Protein Albumin Procalcitonin SARS-CoV-2 (PCR) NEGATIVE Influenza Type A (PCR) Negative Influenza Type B (PCR) Negative RSV (RT-PCR) Negative 10/25/22 10/25/22 10/25/22 03:01 05:42 06:00 WBC 6.89 RBC 3.57 L Hgb 11.1 L POC Hgb Hct 36.2 L POC Hct MCV 101.4 H MCH 31.1 MCHC 30.7 L RDW Std Deviation 51.6 H RDW Coeff of Naa 13.7 Plt Count 213 MPV 10.8 Immature Gran % (Auto) Neut % (Auto) Lymph % (Auto) [place] % (Auto) Eos % (Auto) Baso % (Auto) Neut # (Auto) Lymph # (Auto) [place] # (Auto) Eos # (Auto) Baso # (Auto) Immature Gran # (Auto) PT INR Sample Site POC pH POC pCO2 POC pO2 POC HCO3 POC Total CO2 POC Base Excess ABG pH ABG pCO2 ABG pO2 ABG HCO3 POC ABG O2 Sat ABG O2 Saturation ABG Base Excess Christian Test Oxygen Given O2 Delivery Device POC O2 Rate POC FiO2 IPAP POC Sodium Sodium POC Potassium Potassium Chloride Carbon Dioxide Anion Gap BUN Creatinine Est Cr Clr Drug Dosing Est GFR ( Amer) Est GFR (Non-Af Amer) BUN/Creatinine Ratio Glucose POC Glucose 173 H Lactate Calcium Magnesium Total Bilirubin Direct Bilirubin AST ALT Alkaline Phosphatase Troponin I High Sens 62.5 H* B-Natriuretic Peptide Total Protein Albumin Procalcitonin SARS-CoV-2 (PCR) Influenza Type A (PCR) Influenza Type B (PCR) RSV (RT-PCR) 10/25/22 10/25/22 10/25/22 06:00 06:00 12:01 WBC RBC Hgb POC Hgb Hct POC Hct MCV MCH MCHC RDW Std Deviation RDW Coeff of Naa Plt Count MPV Immature Gran % (Auto) Neut % (Auto) Lymph % (Auto) [place] % (Auto) Eos % (Auto) Baso % (Auto) Neut # (Auto) Lymph # (Auto) [place] # (Auto) Eos # (Auto) Baso # (Auto) Immature Gran # (Auto) PT INR Sample Site POC pH POC pCO2 POC pO2 POC HCO3 POC Total CO2 POC Base Excess ABG pH 7.26 L ABG pCO2 73 H ABG pO2 89 ABG HCO3 33 H POC ABG O2 Sat ABG O2 Saturation 97.4 H ABG Base Excess 3.4 H Chirstian Test Pos Oxygen Given 80 O2 Delivery Device POC O2 Rate POC FiO2 IPAP POC Sodium Sodium 140 POC Potassium Potassium 6.0 H Chloride 103 Carbon Dioxide 35 H Anion Gap 2 L BUN 31 H Creatinine 0.64 Est Cr Clr Drug Dosing 101.2 Est GFR ( Amer) 108.5 Est GFR (Non-Af Amer) 93.6 BUN/Creatinine Ratio 48.4 H Glucose 146 H POC Glucose 134 H Lactate Calcium 9.5 Magnesium 1.8 Total Bilirubin Direct Bilirubin AST ALT Alkaline Phosphatase Troponin I High Sens B-Natriuretic Peptide Total Protein Albumin Procalcitonin SARS-CoV-2 (PCR) Influenza Type A (PCR) Influenza Type B (PCR) RSV (RT-PCR) 10/25/22 12:05 WBC RBC Hgb POC Hgb Hct POC Hct MCV MCH MCHC RDW Std Deviation RDW Coeff of Naa Plt Count MPV Immature Gran % (Auto) Neut % (Auto) Lymph % (Auto) [place] % (Auto) Eos % (Auto) Baso % (Auto) Neut # (Auto) Lymph # (Auto) [place] # (Auto) Eos # (Auto) Baso # (Auto) Immature Gran # (Auto) PT INR Sample Site R Radial POC pH 7.37 POC pCO2 64 H POC pO2 67 L POC HCO3 37 H POC Total CO2 39 H POC Base Excess 12.0 H ABG pH ABG pCO2 ABG pO2 ABG HCO3 POC ABG O2 Sat 92.0 ABG O2 Saturation ABG Base Excess Christian Test Pass Oxygen Given O2 Delivery Device BIPAP POC O2 Rate 20 POC FiO2 50 IPAP 18 POC Sodium Sodium POC Potassium Potassium Chloride Carbon Dioxide Anion Gap BUN Creatinine Est Cr Clr Drug Dosing Est GFR ( Amer) Est GFR (Non-Af Amer) BUN/Creatinine Ratio Glucose POC Glucose Lactate Calcium Magnesium Total Bilirubin Direct Bilirubin AST ALT Alkaline Phosphatase Troponin I High Sens B-Natriuretic Peptide Total Protein Albumin Procalcitonin SARS-CoV-2 (PCR) Influenza Type A (PCR) Influenza Type B (PCR) RSV (RT-PCR)
[2022-10-25 13:01] LABS: BUN Creatinine Ratio 48.4 (10-20); Calcium 9.9 mg/dl (8.5-10.1); Creatinine Clr Calc Pharmacy 100.9 ml/min; Est GFR (African American) 108.5 ml/min; Est GFR (Non-African American) 93.6 ml/min; Magnesium 1.7 mg/dl (1.7-2.4); Potassium 5.5 mmol/L (3.5-5.1)
[2022-10-25] MEDS ORDERED: FUROSEMIDE 40 MG/4 ML VIAL IV ONE (14:30)
[2022-10-25] MEDS: MAGNESIUM SULFATE / D5W 1 GM/100 ML BAG IV SCH ×2 (14:51→16:43)
--- NOTE | 2022-10-25 17:25 | Hospitalist Progress Note ---
Date of Service October 25, 2022 Assessment & Plan (1) Acute respiratory failure with hypoxia and hypercarbia: (2) Acute heart failure with preserved ejection fraction: (3) Acute respiratory acidosis: (4) COPD with acute exacerbation: Plan: Continues on IV diuretics and nitro paste, steroids, BIPAP with intensification, Mg replacement, Brovana and budesonide inhalers. If any worsening of respiratory status, will intubate. Of note, she has recently completed a 7 day course of abx for presumed pneumonia from last admission. (5) Hyperkalemia: Plan: acute hyperkalemia this am, treated with Lokelma, insulin and dextrose as well as calcium given. K went from 6 to 5.5. She continues on Lasix. (6) Diabetes mellitus, type II: Plan: -A1c of 6.0 recently checked during last hospital stay currently at goal cont insulin as needed per ICU protocol. (7) CAD (coronary artery disease): Plan: chronic, stable. Cont medical managment. (8) HLD (hyperlipidemia): Plan: -Continue amlodipine, baby aspirin, carvedilol, lisinopril (9) Obesity (BMI 30.0-34.9): Plan: - BMI of 41.2, diet and exercise to be encouraged prior to discharge (10) Hypothyroid: Plan: - chronic, stable. Cont levothyroxine per home regimen. DVT ppx: scds, lovenox subq CODE: Full code Dispo: ICU DO Michelle Arechiga Hospitalist Admission and Anticipated Discharge Date Admission Date: October 24, 2022 Subjective 67 yo F presented with acute repsiratory failure This morning her ABG was repeated on BIPAP continuously overnight and she was still not optimized. She was transferred to the ICU and BIPAP was intensified, now 18/10 She is feeling better but unhappy about being on the BIPAP and is hungry. She is unable to come off BIPAP even temporarily per RN who states she will dop into the 60% saturation range fairly quickly off the mask. Review of Systems Review of Systems: All systems were reviewed and negative except as indicated in subjective abov.e Physical Exam Physical Exam: CONSTITUTIONAL: morbid obesity, vitals as above, generally NAD on BIPAP EYES: normal conjunctivae, no scleral icterus ENT: external ear and nose normal NECK: trachea midline RESPIRATORY: clear to auscultation bilaterally except for some rales on lower left lung, otherwise she is moving air and no wheezes or crackles were heard, normal respiratory effort CARDIOVASCULAR: regular rate and rhythm, S1 and 2 heard without murmurs, gallops or rubs, no JVD, no peripheral edema CHEST: inspection of chest was normal GASTROINTESTINAL: soft, nontender, ND, no guarding MUSCULOSKELETAL: strength 5/5 throughout, head is normocephalic and atraumatic, SKIN: warm and dry NEUROLOGIC: CN 2-12 grossly intact, no sensory deficit, normal cognition, normal speech, no tremor PSYCHIATRIC: alert cooperative and oriented to person, place and time. Results & Data Results & Data ([facility]) Vital Signs (Past 12 Hours) Vital Signs Temp Pulse Pulse Pulse Resp BP BP 10/25/22 16:00 72 17 10/25/22 16:00 107/56 L 10/25/22 15:00 73 15 10/25/22 15:00 120/64 10/25/22 14:00 74 18 10/25/22 14:00 115/67 10/25/22 13:01 127/64 10/25/22 13:01 74 19 10/25/22 13:00 71 19 10/25/22 12:00 70 17 10/25/22 12:00 104/61 10/25/22 11:00 73 19 10/25/22 11:00 111/65 10/25/22 10:00 73 18 10/25/22 10:00 124/66 10/25/22 16:29 37.1 C 10/25/22 14:38 79 20 10/25/22 14:38 79 20 10/25/22 11:09 73 20 10/25/22 09:27 10/25/22 08:39 98 H 16 10/25/22 08:39 98 H 23 10/25/22 08:27 36.5 C 72 22 117/70 10/25/22 07:52 67 10/25/22 07:11 92 H 23 10/25/22 07:11 92 H 23 Pulse Ox O2 Del Method FiO2 10/25/22 16:00 91 BiPAP 0.5 10/25/22 16:00 10/25/22 15:00 92 10/25/22 15:00 10/25/22 14:00 90 10/25/22 14:00 10/25/22 13:01 10/25/22 13:01 96 10/25/22 13:00 95 BiPAP 0.5 10/25/22 12:00 95 10/25/22 12:00 10/25/22 11:00 92 BiPAP 0.6 10/25/22 11:00 10/25/22 10:00 95 BiPAP 0.7 10/25/22 10:00 10/25/22 16:29 10/25/22 14:38 91 50 10/25/22 14:38 91 BiPAP 50 10/25/22 11:09 92 BiPAP 50 10/25/22 09:27 BiPAP 0.7 10/25/22 08:39 93 70 10/25/22 08:39 93 BiPAP 70 10/25/22 08:27 96 BiPAP 10/25/22 07:52 10/25/22 07:11 95 70 10/25/22 07:11 95 BiPAP 70 Laboratory Results Short CBC 10/25/22 Range/Units 06:00 WBC 6.89 (4.8-10.8) K/ul Hgb 11.1 L (12.0-16.0) g/dl Hct 36.2 L (37.0-47.0) % Plt Count 213 (130-400) K/uL BMP 10/25/22 10/25/22 06:00 12:10 Sodium 140 140 Potassium 6.0 H 5.5 H Chloride 103 101 Carbon Dioxide 35 H 37 H BUN 31 H 31 H Creatinine 0.64 0.64 Glucose 146 H 139 H Calcium 9.5 9.9 Medications Administered Current Inpatient Medications Acetaminophen (Acetaminophen 325 Mg Tab) 650 mg PO Q4H PRN PRN Reason: Moderate Pain Stop: 11/23/22 18:33 Albuterol (Albut/Ipratrop 3mg/0.5mg Neb 3 Ml Vial) 3 ml NEB Q4R [facility]; Protocol Stop: 11/23/22 18:59 Last Admin: 10/25/22 15:34 Dose: Not Given Aspirin (Aspirin 81 Mg Ectab) 81 mg PO QAM NABEEL Stop: 11/24/22 08:59 Last Admin: 10/25/22 10:20 Dose: 81 mg Budesonide (Budesonide 0.25 Mg/2 Ml Vial (Pulmicort)) 0.25 mg NEB BIDR [facility] Stop: 11/24/22 18:59 Carvedilol (Carvedilol 3.125 Mg Tab) 3.125 mg PO BID [facility] Stop: 11/23/22 20:59 Last Admin: 10/25/22 10:21 Dose: 3.125 mg Dextrose (Dextrose 50% 50 Ml Syringe) 25 - 50 ml IV UD PRN; Protocol PRN Reason: Hypoglycemia Protocol Stop: 11/23/22 18:33 Ezetimibe (Ezetimibe 10 Mg Tablet) 10 mg PO DAILY NABEEL Stop: 11/24/22 08:59 Last Admin: 10/25/22 10:20 Dose: 10 mg Enoxaparin Sodium (Enoxaparin Inj 40 Mg/0.4 Ml Syr) 40 mg SQ QAM [facility] Stop: 11/24/22 08:59 Last Admin: 10/25/22 10:35 Dose: Not Given Fluticasone Propionate (Fluticasone Propionate Na Spr 16 Gm Btl) 2 sprays NA DAILY PRN PRN Reason: Congestion Stop: 11/23/22 18:33 Formoterol Fumarate (Formoterol 20 Mcg/2 Ml Vial) 20 mcg INH BIDR [facility] Stop: 11/24/22 18:59 Furosemide (Furosemide 40 Mg/4 Ml Vial) 40 mg IV BID17 [facility] Stop: 11/24/22 08:59 Last Admin: 10/25/22 09:39 Dose: Not Given Glucagon (Glucagon For Inj 1 Mg Vial) 1 mg SQ UD PRN; Protocol PRN Reason: Hypoglycemia Protocol Stop: 11/23/22 18:33 Glucose (Glucose 40% Gel 15 Gm Tube) 15 - 30 gm PO UD PRN; Protocol PRN Reason: Hypoglycemia Protocol Stop: 11/23/22 18:33 Glucose (Glucose 10 Tab/Tube) 4 - 8 tab PO UD PRN; Protocol PRN Reason: Hypoglycemia Treatment Stop: 11/23/22 18:33 Methylprednisolone 40 mg/ (Syringe) 0.64 mls @ 1.5 mls/min IV Q12H [facility] Stop: 11/23/22 19:59 Last Admin: 10/25/22 08:01 Dose: 1.5 mls/min Pantoprazole Sodium 40 mg/ (Syringe) 10 mls @ 5 mls/min IV DAILY@1100 [facility] Stop: 11/24/22 10:59 Last Admin: 10/25/22 10:21 Dose: 5 mls/min Magnesium Sulfate/Dextrose (Magnesium Sulfate / D5w) 1 gm in 100 mls @ 50 mls/hr IV Q2H [facility] Stop: 10/25/22 18:29 Last Admin: 10/25/22 16:43 Dose: 50 mls/hr Insulin Aspart (Insulin Aspart Per Unit) 0 units SC Q6 [facility] Stop: 11/24/22 00:00 Last Admin: 10/25/22 12:30 Dose: Not Given Insulin Glargine (Lantus Per Unit Charge) 5 units SQ BID [facility] Stop: 11/23/22 21:14 Last Admin: 10/25/22 10:31 Dose: 5 units Levothyroxine Sodium (Levothyroxine Sodium 150 Mcg Tablet) 150 mcg PO DAILYBB [facility] Stop: 11/24/22 06:29 Last Admin: 10/25/22 05:51 Dose: 150 mcg Lisinopril (Lisinopril 40 Mg Tab) 40 mg PO QAM [facility] Stop: 11/24/22 08:59 Miscellaneous (Carbohydrates For Hypoglycemia ) 15 - 30 gm PO UD PRN PRN Reason: Hypoglycemia Protocol Stop: 11/23/22 18:33 Nitroglycerin (Nitroglycerin 2% Ointment 30gm Tube) 1 inch EXT Q6H [facility] Stop: 11/23/22 19:59 Last Admin: 10/25/22 15:01 Dose: 1 inch Ondansetron HCl (Ondansetron Inj 2 Mg/Ml 2 Ml Vial) 4 mg IV Q4H PRN PRN Reason: Nausea And Vomiting Stop: 11/23/22 18:33 Sodium Zirconium Cyclosilicate (Sodium Zirconium Cyclosilicate 10 Gm Packet) 10 gm PO TID [facility] Stop: 10/26/22 21:01 Last Admin: 10/25/22 12:37 Dose: 10 gm Umeclidinium [place] (Umeclidinium [place] 62.5mcg/Blister 7 Puffs/Inhaler) 1 p uffs INH DAILY [facility]; Protocol Stop: 11/24/22 08:59 Last Admin: 10/25/22 10:21 Dose: 1 puffs
[2022-10-25] MEDS: BUDESONIDE 0.25 MG/2 ML VIAL (PULMICORT) NEB SCH (19:17)
[2022-10-25] MEDS: FORMOTEROL 20 MCG/2 ML VIAL INH SCH (19:17)
[2022-10-25 19:19] LABS: Magnesium 2.4 mg/dl (1.7-2.4); Phosphorus 3.7 mg/dl (2.5-4.9)
[2022-10-25 19:22] LABS: BUN Creatinine Ratio 46.5 (10-20); Calcium 9.9 mg/dl (8.5-10.1); Est GFR (African American) 103.6 ml/min; Est GFR (Non-African American) 89.4 ml/min
[2022-10-26] MEDS: ALBUT/IPRATROP 3MG/0.5MG NEB 3 ML VIAL NEB SCH ×5 (00:23→14:41)
[2022-10-26] MEDS: INSULIN ASPART PER UNIT SC SCH ×5 (00:27→20:26)
[2022-10-26] MEDS: NITROGLYCERIN 2% OINTMENT 30GM TUBE EXT SCH ×3 (02:48→14:18)
[2022-10-26 05:43] LABS: Basophils # (auto) 0.01 K/uL (0-0.2); Basophils % (auto) 0.1 %; Hematocrit (blood only) 36.1 % (37.0-47.0); Immature Granulocytes # (auto) 0.04 K/uL (0.01-0.20); Immature Granulocytes % (auto) 0.5 %; Lymphocytes # (auto) 0.47 K/uL (1.2-3.4); Lymphocytes % (auto) 5.8 %; Mean Corpuscular Hemoglobin 30.5 pg (25.0-34.0); Mean Corpuscular Hgb Conc 30.5 g/dL (32.0-36.0); Mean Platelet Volume 10.6 fL (9.4-12.4); Monocytes # (auto) 0.46 K/uL (0.11-0.59); Monocytes % (auto) 5.7 %; Neutrophils # (auto) 7.09 K/uL (1.40-6.50); Neutrophils % (auto) 87.9 %; Platelet Count 228 K/uL (130-400); RDW Coefficient of Variation 13.8 % (11.5-14.5); Red Blood Count 3.61 M/uL (4.20-5.40); White Blood Count 8.07 K/ul (4.8-10.8)
[2022-10-26 05:58] LABS: BUN Creatinine Ratio 51.4 (10-20); Calcium 9.9 mg/dl (8.5-10.1); Creatinine Clr Calc Pharmacy 92.3 ml/min; Est GFR (African American) 105.4 ml/min; Est GFR (Non-African American) 90.9 ml/min; Magnesium 2.1 mg/dl (1.7-2.4); Phosphorus 4.7 mg/dl (2.5-4.9); Potassium 5.2 mmol/L (3.5-5.1)
[2022-10-26] MEDS: LEVOTHYROXINE SODIUM 150 MCG TABLET PO SCH (06:39)
--- NOTE | 2022-10-26 07:07 | XRay Report ---
XR chest 1V portable CLINICAL HISTORY: Respiratory failure. Lung cancer. COMPARISON STUDY: Chest CT October 19, 2022. Chest radiograph October 24, 2022. FINDINGS: There is no pneumothorax. Small bilateral pleural effusions persist with hazy bibasilar opa cities. Pulmonary edema has mildly improved. Cardiomegaly is unchanged. Mediastinal contours are stab le. No right lower lobe lesion is obscured on this study. IMPRESSION: 1. Mild interstitial pulmonary edema, improved since prior exam. 2. Small bilateral pleural effusions with persistent bibasilar opacities. Stable cardiomegaly. ACT 112: Negative or not required by law. Electronically signed by: Nehemias Holt M.D. 10/26/2022 7:06 AM
[2022-10-26] MEDS: carvediloL 3.125 MG TAB PO SCH (07:20)
--- NOTE | 2022-10-26 07:32 | Critical Care Progress Note ---
Date of Service October 26, 2022 Assessment & Plan (1) Acute respiratory failure with hypoxia and hypercarbia: (2) COPD with acute exacerbation: (3) Pulmonary edema: (4) BHAVIK on CPAP: (5) HTN (hypertension): (6) Acute on chronic diastolic CHF (congestive heart failure): (7) Diabetes mellitus, type II: (8) Obesity (BMI 30.0-34.9): (9) CAD (coronary artery disease): (10) HLD (hyperlipidemia): (11) Hypothyroid: Plan Impression: 67-year-old female with diastolic heart failure and severe COPD presents with acute on chronic hypoxic and hypercarbic respiratory failure, requ iring continuous BiPAP. Neuro - [facility] ICU: Negative Cardiac - CADEKG with normal sinus rhythm, QTc 430. No ST elevations -- Elevated troponin Likely type II SC Continue to trend Diastolic heart failureecho from 10/19/2022 with EF 55 to 60% and mild concentric left ventricular hypertrophy with grade 1 diastolic dysfunction, mild tricuspid regurg -BNP elevated to 91 on admission -Continue with diuresis -Strict I's and O's and daily weights -Continuous monitor on telemetry -Cardiology on board Respiratory - -- Acute on chronic respiratory failure with hypercapnia and hypoxia Combination of CHF and COPD exacerbation BiPAP nightly and as needed shortness of breath At baseline on 3-4 L oxygen at home --BHAVIK On CPAP at home GI - N.p.o. for now RENAL/LYTES - --Hyperkalemia Give hyperkalemia cocktail Repeat BMP in 4 hours - Foleystrict I's and O's ENDO - DM type II Continue with ICU hypoglycemia protocol Hypothyroid continue Synthroid HEME - H&H stable, monitor routine CBC ID - Recent treatment for presumed pneumonia and completed 7 day course of antibiotics -COVID, influenza, RSV negative -Procalcitonin negative, lactate WNL, and afebrile. --Prophylaxis VTE: Lovenox GI: Pantoprazole Lines: Peripheral Diet: Cardiac diet Plan: In/out: -2.8 L, urine output 3650 Patient did get 3 doses of 40 mg Lasix yesterday. I will hold Coreg as the patient's heart rate is on the lower side so is the blood pressure. Diuresis is more important to the patient right now. Repeat BMP at 1 PM. If BUN/creatinine is stable then give another 40 mg of Lasix in the afternoon Go down on Solu-Medrol to 40 mg on a daily basis BiPAP setting decreased to 16/8, 35%. We will try to see if you are able to get her off BiPAP to nasal cannula We will see if the patient is able to tolerate nasal cannula and if that is a possibility then we will transfer her out of the ICU, if she requires continuous BiPAP then we will continue to monitor her in the ICU Please note the above document was generated using voice recognition software. It may contain grammatical, syntax or spelling errors.Any formal questions or concerns about the content, text or information contained within the body of this dictation should be directly addressed to the provider for clarification. Admission and Anticipated Discharge Date Admission Date: October 24, 2022 Subjective Patient seen and examined at bedside. No acute distress, no adverse events overnight. Patient's heart rate was in the low 60s with systolic blood pressure in the 130s at the time of examination She was on BiPAP 18/10, 50% saturating 94-95%. I went down on the settings to 16/8, 35% and she was still maintaining a saturation 91-92% Denies any chest pain, no nausea or vomiting She stated she is feeling better since coming to the hospital No headache, no blurry vision No nausea vomiting Review of Systems Review of Systems: All systems reviewed & are unremarkable except as noted in HPI & below Physical Exam Physical Exam: Constitutional: No acute distress HEENT: EOMI, PERRLA Respiratory system: Decreased air entry bilaterally, no wheeze, rhonchi, positive crackles bilateral lower lobes CVS: S1-S2 positive, no murmurs or gallops, distant heart sounds Abdomen: Soft, nontender, nondistended, positive bowel sounds x4, obese Extremities: +2 pulses bilaterally radialis/ dorsalis pedis, no cyanosis, +2 pitting edema bilateral lower extremity Neuro: Awake alert oriented x3 Psych: Normal mood and affect G/U: Positive [place] Skin: no rashes, warm and dry Lymphatic: no cervical or axillary lymphadenopathy Results & Data Results & Data ([facility]) Vital Signs (Past 12 Hours) Vital Signs Temp Pulse Pulse Resp BP Pulse Ox O2 Del Method 10/26/22 06:00 54 L 15 95 10/26/22 06:00 93/54 L 10/26/22 05:00 66 15 96 10/26/22 05:00 119/69 10/26/22 04:00 65 17 98 10/26/22 04:00 139/80 10/26/22 03:55 56 L 21 95 10/26/22 03:55 65 21 95 BiPAP 10/26/22 03:00 63 12 95 10/26/22 03:00 142/84 H 10/26/22 02:01 126/73 10/26/22 02:01 65 18 94 10/26/22 01:00 55 L 13 95 10/26/22 01:00 100/57 L 10/26/22 00:00 61 15 95 10/26/22 00:00 97/63 L 10/25/22 23:00 56 L 16 94 10/25/22 23:00 112/64 10/25/22 23:27 62 21 95 10/26/22 00:24 55 L 20 95 BiPAP 10/25/22 22:00 60 15 95 10/25/22 22:00 97/62 L 10/25/22 21:00 61 20 94 10/25/22 21:00 108/58 L 10/25/22 20:00 36.4 C L 66 18 93 10/25/22 20:00 98/55 L 10/25/22 20:00 BiPAP FiO2 10/26/22 06:00 10/26/22 06:00 10/26/22 05:00 10/26/22 05:00 10/26/22 04:00 10/26/22 04:00 10/26/22 03:55 50 10/26/22 03:55 50 10/26/22 03:00 10/26/22 03:00 10/26/22 02:01 10/26/22 02:01 10/26/22 01:00 10/26/22 01:00 10/26/22 00:00 10/26/22 00:00 10/25/22 23:00 10/25/22 23:00 10/25/22 23:27 50 10/26/22 00:24 50 10/25/22 22:00 10/25/22 22:00 10/25/22 21:00 10/25/22 21:00 10/25/22 20:00 10/25/22 20:00 10/25/22 20:00 Laboratory Results 10/26/22 05:13 10/26/22 05:13 Coding Level of Care Code 77952 SUB INP/OBS CARE 3/50MIN Diagnoses Acute respiratory failure with hypoxia and hypercarbia J96.01; J96.02 COPD with acute exacerbation J44.1 Pulmonary edema J81.0 Chronicity: acute BHAVIK on CPAP G47.33; Z99.89 HTN (hypertension) I10 Acute on chronic diastolic CHF (congestive heart failure) I50.33 Diabetes mellitus, type II E11.9 Obesity (BMI 30.0-34.9) E66.9 CAD (coronary artery disease) I25.10 HLD (hyperlipidemia) E78.5 Hypothyroid E03.9 (1) Pulmonary edema Chronicity: acute Qualified Code(s): J81.0 - Acute pulmonary edema
[2022-10-26] MEDS: FORMOTEROL 20 MCG/2 ML VIAL INH SCH ×2 (07:50→18:58)
[2022-10-26] MEDS: BUDESONIDE 0.25 MG/2 ML VIAL (PULMICORT) NEB SCH ×2 (07:50→18:57)
[2022-10-26] MEDS: ASPIRIN 81 MG ECTAB PO SCH (08:55)
[2022-10-26] MEDS: FUROSEMIDE 40 MG/4 ML VIAL IV SCH (08:56)
[2022-10-26] MEDS: EZETIMIBE 10 MG TABLET PO SCH (08:56)
[2022-10-26] MEDS: UMECLIDINIUM BROMIDE 62.5MCG/BLISTER 7 PUFFS/INHALER INH SCH (08:58)
[2022-10-26] MEDS ORDERED: methylPREDNISolone 40 MG in SYRINGE 0 ML IV SCH (09:00)
[2022-10-26] MEDS: LANTUS PER UNIT CHARGE SQ SCH ×2 (09:03→20:28)
[2022-10-26] MEDS: ENOXAPARIN INJ 40 MG/0.4 ML SYR SQ SCH (09:04)
[2022-10-26] MEDS: PANTOprazole 40 MG in SYRINGE 0 ML IV SCH (12:00)
[2022-10-26] MEDS: SODIUM ZIRCONIUM CYCLOSILICATE 10 GM PACKET PO SCH ×3 (12:00→21:00)
[2022-10-26] MEDS: ACETAMINOPHEN 325 MG TAB PO PRN ×2 (12:53→20:38)
--- NOTE | 2022-10-26 13:21 | Cardiology Progress Note ---
Date of Service October 26, 2022 Assessment & Plan (1) Acute respiratory failure with hypoxia and hypercarbia: (2) Acute respiratory acidosis: (3) Acute on chronic diastolic CHF (congestive heart failure): Plan Patient is a 67-year-old female who presents with acute hypoxic and hypercarbic respiratory failure with mixed etiology with underlying hypoxic obstructive lung disease superimposed on diastolic heart failure. Clinically improving. Has responded to IV diuretics as well as respiratory support Coreg held this morning we will discontinue this medication and switch to metoprolol succinate at 12.5 mg twice per day predominantly for rhythm control Past hyperkalemia precludes use of spironolactone Plan: Diuretic switch to oral today Admission and Anticipated Discharge Date Admission Date: October 24, 2022 Subjective Patient seen and examined, chart, medications, telemetry reviewed. Patient sitting at bedside on nasal cannula. Much more comfortable than day prior. No current chest pains. No productive cough. No edema Nearly 3 L diuresis Chest x-ray improved not completely resolved but may be lagging clinic response Physical Exam Constitutional: + obese Eyes: PERRL, conjunctivae normal, anicteric sclerae ENMT: external ear and nose normal, oropharynx normal Neck: + thick neck Respiratory: + audible wheezes (And rhonchi with forced cough) Cardiovascular: RRR, no murmur, no edema Extremities: no edema Gastrointestinal (Abdomen): Percussion/Palpation: abdomen soft (With large panniculus) Musculoskeletal: no cyanosis or clubbing, extremities motor strength 5/5 Results & Data ([facility]) Vital Signs (Past 12 Hours) Vital Signs Temp Pulse Pulse Resp BP Pulse Ox Pulse Ox 10/26/22 12:25 88 L 10/26/22 10:00 69 14 92 10/26/22 10:00 132/56 L 10/26/22 09:00 65 21 97 10/26/22 09:00 127/85 10/26/22 08:00 59 L 14 91 10/26/22 08:00 144/73 H 10/26/22 07:01 57 L 14 95 10/26/22 07:01 136/70 10/26/22 07:00 58 L 19 96 10/26/22 07:53 37.1 C 10/26/22 10:50 81 18 93 10/26/22 08:44 10/26/22 07:51 82 18 92 10/26/22 07:51 83 18 92 10/26/22 06:00 54 L 15 95 10/26/22 06:00 93/54 L 10/26/22 05:00 66 15 96 10/26/22 05:00 119/69 10/26/22 04:00 65 17 98 10/26/22 04:00 139/80 10/26/22 03:55 56 L 21 95 10/26/22 03:55 65 21 95 10/26/22 03:00 63 12 95 10/26/22 03:00 142/84 H 10/26/22 02:01 126/73 10/26/22 02:01 65 18 94 Pulse Ox Pulse Ox O2 Del Method O2 Flow Rate O2 Flow Rate O2 Flow Rate O2 Flow Rate 10/26/22 12:25 90 90 4 4 4 10/26/22 10:00 Nasal Cannula 4 10/26/22 10:00 10/26/22 09:00 10/26/22 09:00 10/26/22 08:00 10/26/22 08:00 10/26/22 07:01 10/26/22 07:01 10/26/22 07:00 10/26/22 07:53 10/26/22 10:50 Nasal Cannula 4 10/26/22 08:44 BiPAP 10/26/22 07:51 10/26/22 07:51 BiPAP 10/26/22 06:00 10/26/22 06:00 10/26/22 05:00 10/26/22 05:00 10/26/22 04:00 10/26/22 04:00 10/26/22 03:55 10/26/22 03:55 BiPAP 10/26/22 03:00 10/26/22 03:00 10/26/22 02:01 10/26/22 02:01 FiO2 10/26/22 12:25 10/26/22 10:00 10/26/22 10:00 10/26/22 09:00 10/26/22 09:00 10/26/22 08:00 10/26/22 08:00 10/26/22 07:01 10/26/22 07:01 10/26/22 07:00 10/26/22 07:53 10/26/22 10:50 10/26/22 08:44 0.5 10/26/22 07:51 35 10/26/22 07:51 35 10/26/22 06:00 10/26/22 06:00 10/26/22 05:00 10/26/22 05:00 10/26/22 04:00 10/26/22 04:00 10/26/22 03:55 50 10/26/22 03:55 50 10/26/22 03:00 10/26/22 03:00 10/26/22 02:01 10/26/22 02:01
[2022-10-26 13:30] LABS: BUN Creatinine Ratio 34.6 (10-20); Calcium 10.3 mg/dl (8.5-10.1); Creatinine Clr Calc Pharmacy 59.7 ml/min; Est GFR (African American) 65.3 ml/min; Est GFR (Non-African American) 56.3 ml/min; Potassium 4.9 mmol/L (3.5-5.1)
--- NOTE | 2022-10-26 14:20 | Hospitalist Progress Note ---
Date of Service October 26, 2022 Assessment & Plan (1) Acute respiratory failure with hypoxia and hypercarbia: (2) Acute heart failure with preserved ejection fraction: (3) Acute respiratory acidosis: (4) COPD with acute exacerbation: Plan: Continues on IV diuretics, stopped nitro paste. Continues on daily steroids at this point and there is no wheezing. bronchodilater nebs PRN. Cont Brovana and budesonide inhalers. Completed a course of abx for presumed pneumonia last admission. (5) Hyperkalemia: Plan: acute hyperkalemia treated with Lokelma, K is improved to <5. (6) Diabetes mellitus, type II: Plan: -A1c of 6.0 recently checked during last hospital stay currently at goal cont insulin as needed per ICU protocol. (7) CAD (coronary artery disease): Plan: chronic, stable. Cont medical managment. (8) HLD (hyperlipidemia): Plan: -Continue amlodipine, baby aspirin, carvedilol, lisinopril (9) Obesity (BMI 30.0-34.9): Plan: - BMI of 41.2, diet and exercise to be encouraged prior to discharge (10) Hypothyroid: Plan: - chronic, stable. Cont levothyroxine per home regimen. DVT ppx: scds, lovenox subq CODE: Full code [facility] Admission and Anticipated Discharge Date Admission Date: October 24, 2022 Subjective 67 yo F presented with acute respiratory failure off bipap and doing well on home oxygen setting. tolerating PO denies cp or other issues Review of Systems Review of Systems: All systems were reviewed and negative except as indicated in subjective above Physical Exam Physical Exam: CONSTITUTIONAL: morbid obesity, vitals as above, generally NAD on BIPAP EYES: normal conjunctivae, no scleral icterus ENT: external ear and nose normal NECK: trachea midline RESPIRATORY: clear to auscultation bilaterally except for some rales on lower left lung, otherwise she is moving air and no wheezes or crackles were heard, normal respiratory effort CARDIOVASCULAR: regular rate and rhythm, S1 and 2 heard without murmurs, gallops or rubs, no JVD, no peripheral edema CHEST: inspection of chest was normal GASTROINTESTINAL: soft, nontender, ND, no guarding MUSCULOSKELETAL: strength 5/5 throughout, head is normocephalic and atraumatic, SKIN: warm and dry NEUROLOGIC: CN 2-12 grossly intact, no sensory deficit, normal cognition, normal speech, no tremor PSYCHIATRIC: alert cooperative and oriented to person, place and time. Results & Data Results & Data ([facility]) Vital Signs (Past 12 Hours) Vital Signs Temp Pulse Pulse Resp BP Pulse Ox Pulse Ox 10/26/22 12:25 88 L 10/26/22 10:00 69 14 92 10/26/22 10:00 132/56 L 10/26/22 09:00 65 21 97 10/26/22 09:00 127/85 10/26/22 08:00 59 L 14 91 10/26/22 08:00 144/73 H 10/26/22 07:01 57 L 14 95 10/26/22 07:01 136/70 10/26/22 07:00 58 L 19 96 10/26/22 07:53 37.1 C 10/26/22 10:50 81 18 93 10/26/22 08:44 10/26/22 07:51 82 18 92 10/26/22 07:51 83 18 92 10/26/22 06:00 54 L 15 95 10/26/22 06:00 93/54 L 10/26/22 05:00 66 15 96 10/26/22 05:00 119/69 10/26/22 04:00 65 17 98 10/26/22 04:00 139/80 10/26/22 03:55 56 L 21 95 10/26/22 03:55 65 21 95 10/26/22 03:00 63 12 95 10/26/22 03:00 142/84 H Pulse Ox Pulse Ox O2 Del Method O2 Flow Rate O2 Flow Rate O2 Flow Rate O2 Flow Rate 10/26/22 12:25 90 90 4 4 4 10/26/22 10:00 Nasal Cannula 4 10/26/22 10:00 10/26/22 09:00 10/26/22 09:00 10/26/22 08:00 10/26/22 08:00 10/26/22 07:01 10/26/22 07:01 10/26/22 07:00 10/26/22 07:53 10/26/22 10:50 Nasal Cannula 4 10/26/22 08:44 BiPAP 10/26/22 07:51 10/26/22 07:51 BiPAP 10/26/22 06:00 10/26/22 06:00 10/26/22 05:00 10/26/22 05:00 10/26/22 04:00 10/26/22 04:00 10/26/22 03:55 10/26/22 03:55 BiPAP 10/26/22 03:00 10/26/22 03:00 FiO2 10/26/22 12:25 10/26/22 10:00 10/26/22 10:00 10/26/22 09:00 10/26/22 09:00 10/26/22 08:00 10/26/22 08:00 10/26/22 07:01 10/26/22 07:01 10/26/22 07:00 10/26/22 07:53 10/26/22 10:50 10/26/22 08:44 0.5 10/26/22 07:51 35 10/26/22 07:51 35 10/26/22 06:00 10/26/22 06:00 10/26/22 05:00 10/26/22 05:00 10/26/22 04:00 10/26/22 04:00 10/26/22 03:55 50 10/26/22 03:55 50 10/26/22 03:00 10/26/22 03:00 Laboratory Results Short CBC 10/26/22 Range/Units 05:13 WBC 8.07 (4.8-10.8) K/ul Hgb 11.0 L (12.0-16.0) g/dl Hct 36.1 L (37.0-47.0) % Plt Count 228 (130-400) K/uL BMP 10/25/22 10/26/22 10/26/22 18:42 05:13 12:51 Sodium 140 139 139 Potassium 5.0 5.2 H 4.9 Chloride 98 96 L 93 L Carbon Dioxide 37 H 40 H 39 H BUN 33 H 36 H 36 H Creatinine 0.71 0.70 1.04 D Glucose 140 H 145 H 195 H Calcium 9.9 9.9 10.3 H Diagnostic Findings Chest X-Ray 10/26/22 07:00 XR chest 1V portable CLINICAL HISTORY: Respiratory failure. Lung cancer. COMPARISON STUDY: Chest CT October 19, 2022. Chest radiograph October 24, 2022. FINDINGS: There is no pneumothorax. Small bilateral pleural effusions persist with hazy bibasilar opacities. Pulmonary edema has mildly improved. Cardiomegaly is unchanged. Mediastinal contours are stable. No right lower lobe lesion is obscured on this study. IMPRESSION: 1. Mild interstitial pulmonary edema, improved since prior exam. 2. Small bilateral pleural effusions with persistent bibasilar opacities. Stable cardiomegaly. ACT 112: Negative or not required by law. Electronically signed by: Nehemias Holt M.D. 10/26/2022 7:06 AM Medications Administered Current Inpatient Medications Acetaminophen (Acetaminophen 325 Mg Tab) 650 mg PO Q4H PRN PRN Reason: Moderate Pain Stop: 11/23/22 18:33 Last Admin: 10/26/22 12:53 Dose: 650 mg Albuterol (Albut/Ipratrop 3mg/0.5mg Neb 3 Ml Vial) 3 ml NEB Q4R [facility]; Protocol Stop: 11/23/22 18:59 Last Admin: 10/26/22 10:49 Dose: 3 ml Aspirin (Aspirin 81 Mg Ectab) 81 mg PO QAM [facility] Stop: 11/24/22 08:59 Last Admin: 10/26/22 08:55 Dose: 81 mg Budesonide (Budesonide 0.25 Mg/2 Ml Vial (Pulmicort)) 0.25 mg NEB BIDR [facility] Stop: 11/24/22 18:59 Last Admin: 10/26/22 07:50 Dose: Not Given Carvedilol (Carvedilol 3.125 Mg Tab) 3.125 mg PO BID [facility] Stop: 11/23/22 20:59 Last Admin: 10/26/22 07:20 Dose: Not Given Dextrose (Dextrose 50% 50 Ml Syringe) 25 - 50 ml IV UD PRN; Protocol PRN Reason: Hypoglycemia Protocol Stop: 11/23/22 18:33 Ezetimibe (Ezetimibe 10 Mg Tablet) 10 mg PO DAILY [facility] Stop: 11/24/22 08:59 Last Admin: 10/26/22 08:56 Dose: 10 mg Enoxaparin Sodium (Enoxaparin Inj 40 Mg/0.4 Ml Syr) 40 mg SQ QAM [facility] Stop: 11/24/22 08:59 Last Admin: 10/26/22 09:04 Dose: Not Given Fluticasone Propionate (Fluticasone Propionate Na Spr 16 Gm Btl) 2 sprays NA DAILY PRN PRN Reason: Congestion Stop: 11/23/22 18:33 Formoterol Fumarate (Formoterol 20 Mcg/2 Ml Vial) 20 mcg INH BIDR [facility] Stop: 11/24/22 18:59 Last Admin: 10/26/22 07:50 Dose: 20 mcg Furosemide (Furosemide 40 Mg Tab) 40 mg PO BID17 [facility] Stop: 11/25/22 17:59 Glucagon (Glucagon For Inj 1 Mg Vial) 1 mg SQ UD PRN; Protocol PRN Reason: Hypoglycemia Protocol Stop: 11/23/22 18:33 Glucose (Glucose 40% Gel 15 Gm Tube) 15 - 30 gm PO UD PRN; Protocol PRN Reason: Hypoglycemia Protocol Stop: 11/23/22 18:33 Glucose (Glucose 10 Tab/Tube) 4 - 8 tab PO UD PRN; Protocol PRN Reason: Hypoglycemia Treatment Stop: 11/23/22 18:33 Pantoprazole Sodium 40 mg/ (Syringe) 10 mls @ 5 mls/min IV DAILY@1100 [facility] Stop: 11/24/22 10:59 Last Admin: 10/26/22 12:00 Dose: 5 mls/min Methylprednisolone 40 mg/ (Syringe) 0.64 mls @ 1.5 mls/min IV DAILY [facility] Stop: 11/25/22 08:59 Last Admin: 10/26/22 08:58 Dose: 1.5 mls/min Insulin Aspart (Insulin Aspart Per Unit) 0 units SC Q6 [facility] Stop: 11/24/22 00:00 Last Admin: 10/26/22 11:56 Dose: Not Given Insulin Glargine (Lantus Per Unit Charge) 5 units SQ BID [facility] Stop: 11/23/22 21:14 Last Admin: 10/26/22 09:03 Dose: 5 units Levothyroxine Sodium (Levothyroxine Sodium 150 Mcg Tablet) 150 mcg PO DAILYBB [facility] Stop: 11/24/22 06:29 Last Admin: 10/26/22 06:39 Dose: 150 mcg Lisinopril (Lisinopril 40 Mg Tab) 40 mg PO QAM [facility] Stop: 11/24/22 08:59 Miscellaneous (Carbohydrates For Hypoglycemia ) 15 - 30 gm PO UD PRN PRN Reason: Hypoglycemia Protocol Stop: 11/23/22 18:33 Nitroglycerin (Nitroglycerin 2% Ointment 30gm Tube) 1 inch EXT Q6H [facility] Stop: 11/23/22 19:59 Last Admin: 10/26/22 14:18 Dose: 1 inch Ondansetron HCl (Ondansetron Inj 2 Mg/Ml 2 Ml Vial) 4 mg IV Q4H PRN PRN Reason: Nausea And Vomiting Stop: 11/23/22 18:33 Sodium Zirconium Cyclosilicate (Sodium Zirconium Cyclosilicate 10 Gm Packet) 10 gm PO TID [facility] Stop: 10/26/22 21:01 Last Admin: 10/26/22 12:00 Dose: 10 gm Umeclidinium Matthews (Umeclidinium Matthews 62.5mcg/Blister 7 Puffs/Inhaler) 1 puffs INH DAILY [facility]; Protocol Stop: 11/24/22 08:59 Last Admin: 10/26/22 08:58 Dose: 1 puffs
[2022-10-26] MEDS: FUROSEMIDE 40 MG TAB PO SCH (17:45)
[2022-10-26] MEDS ORDERED: ALBUT/IPRATROP 3MG/0.5MG NEB 3 ML VIAL NEB PRN (17:56)
[2022-10-26 18:33] LABS: BUN Creatinine Ratio 35.4 (10-20); Calcium 9.8 mg/dl (8.5-10.1); Creatinine Clr Calc Pharmacy 54.9 ml/min; Est GFR (African American) 59.1 ml/min; Potassium 4.3 mmol/L (3.5-5.1)
[2022-10-26] MEDS: METOPROLOL SUCC 25MG EXT REL TAB PO SCH (20:38)
[2022-10-26] MEDS ORDERED: carvediloL 3.125 MG TAB PO SCH (21:00)
[2022-10-27] MEDS: ACETAMINOPHEN 325 MG TAB PO PRN ×3 (01:54→20:30)
[2022-10-27 06:37] LABS: Basophils # (auto) 0.01 K/uL (0-0.2); Basophils % (auto) 0.1 %; Eosinophils # (auto) 0.07 K/uL (0-0.50); Eosinophils % (auto) 0.8 %; Hematocrit (blood only) 36.8 % (37.0-47.0); Hemoglobin 11.5 g/dl (12.0-16.0); Immature Granulocytes # (auto) 0.03 K/uL (0.01-0.20); Immature Granulocytes % (auto) 0.4 %; Lymphocytes # (auto) 1.49 K/uL (1.2-3.4); Mean Corpuscular Hemoglobin 30.8 pg (25.0-34.0); Mean Corpuscular Hgb Conc 31.3 g/dL (32.0-36.0); Mean Corpuscular Volume 98.7 fL (80.0-100.0); Mean Platelet Volume 10.4 fL (9.4-12.4); Monocytes # (auto) 0.91 K/uL (0.11-0.59); Neutrophils # (auto) 5.77 K/uL (1.40-6.50); Neutrophils % (auto) 69.7 %; Platelet Count 215 K/uL (130-400); RDW Coefficient of Variation 13.7 % (11.5-14.5); Red Blood Count 3.73 M/uL (4.20-5.40); White Blood Count 8.28 K/ul (4.8-10.8)
[2022-10-27] MEDS: LEVOTHYROXINE SODIUM 150 MCG TABLET PO SCH (06:37)
[2022-10-27 06:55] LABS: BUN Creatinine Ratio 55.1 (10-20); Calcium 9.6 mg/dl (8.5-10.1); Creatinine Clr Calc Pharmacy 91.5 ml/min; Est GFR (African American) 105.9 ml/min; Est GFR (Non-African American) 91.4 ml/min; Phosphorus 4.4 mg/dl (2.5-4.9); Potassium 3.7 mmol/L (3.5-5.1)
[2022-10-27] MEDS: BUDESONIDE 0.25 MG/2 ML VIAL (PULMICORT) NEB SCH (06:59)
[2022-10-27] MEDS: FORMOTEROL 20 MCG/2 ML VIAL INH SCH (06:59)
[2022-10-27] MEDS: ASPIRIN 81 MG ECTAB PO SCH (08:37)
[2022-10-27] MEDS: FUROSEMIDE 40 MG TAB PO SCH ×2 (08:37→16:57)
[2022-10-27] MEDS: EZETIMIBE 10 MG TABLET PO SCH (08:37)
[2022-10-27] MEDS: PANTOprazole 40 MG TAB PO SCH (08:37)
[2022-10-27] MEDS: UMECLIDINIUM BROMIDE 62.5MCG/BLISTER 7 PUFFS/INHALER INH SCH ×2 (08:37→09:33)
--- NOTE | 2022-10-27 08:37 | Pulmonology Progress Note ---
Date of Service October 27, 2022 Assessment & Plan (1) Acute respiratory failure with hypoxia and hypercarbia: (2) Acute respiratory acidosis: (3) BHAVIK on CPAP: (4) Acute on chronic diastolic CHF (congestive heart failure): (5) Primary cancer of right lower lobe of lung: Plan Impression: 67-year-old female with overlap syndrome (obstructive lung disease/sleep disordered breathing) on CPAP as an outpatient admitted with hypoxemic hypercarbic respiratory failure. She is improved clinically. She has a history of lung cancer treated with stereotactic radiation therapy Recommendations: 1. Sleep disordered breathing: Discussed with patient that if our current unit is uncomfortable for her, we can get her home unit and have her use that. She reports that her last sleep study was performed at [facility] within the last year. I do not have those results available to review. Unclear what her home settings are as she is followed through the [facility] system. 2. Hypoxemic respiratory failure: Secondary to diastolic dysfunction. Diuretics per primary and cardiology. 3. Morbid obesity: Weight loss is imperative. Consider referral to bariatric medicine and outpatient referral to a and p mechanic to assist with weight loss. 4. COPD: Patient was on Symbicort Spiriva and as needed albuterol in the outpatient setting. She appears appropriate to transition off nebulized therapies back to her inhalers. We will transition to oral prednisone. Anticipate 5-day course. 5. Increase activity as tolerated. The patient should ambulate in the hallway. 6. Hypercarbic respiratory failure: The patient's pH is controlled currently. Would not try and normalize her CO2 levels. I think at this point in time compliance with BiPAP and oxygen as per her prior sleep study and clinical follow-up with her outpatient pulmonary group at [facility] and consideration for repeat ABG in 4 to 6 weeks would be appropriate. The above recommendations and plan were discussed with the patient. Questions were answered to the best my ability. Admission and Anticipated Discharge Date Admission Date: October 24, 2022 Subjective Patient seen and examined. EMR reviewed. Discussed with off going gold prospector. The patient is sitting up at the bedside. She just had breakfast. She states she was able to use noninvasive positive pressure ventilation last night. She was bothered by the alarms. She does have CPAP which she uses at home. No one is available to bring her machine in for her. The patient reports that her breathing is about at baseline. She is not really coughing and expectorating phlegm or experiencing any chest tightness. She is tolerating a diet. She has not had any chest pain or palpitations. No fevers chills or night sweats. Review of Systems Review of Systems: All systems reviewed & are unremarkable except as noted in Subjective Physical Exam Constitutional: WD/WN, vitals as above + morbidly obese Neck: trachea midline, no thyromegaly Respiratory: no respiratory distress, no labored breathing and not tachypneic Auscultation: + diminished lung sounds; no crackles and no wheezes Cardiovascular: RRR, no murmur, no edema Gastrointestinal (Abdomen): normal bowel sounds, soft, nontender, no hepatosplenomegaly Musculoskeletal: Extremities: extremities normal to inspection Skin: no rashes, warm and dry Neurologic: Nonfocal exam Lymphatic: no cervical lymphadenopathy Results & Data Results & Data ([facility]) Vital Signs (Past 12 Hours) Vital Signs Temp Pulse Pulse Resp BP Pulse Ox O2 Del Method 10/27/22 08:00 37.0 C 66 22 118/67 97 Nasal Cannula 10/27/22 07:17 63 18 95 Nasal Cannula 10/27/22 03:40 55 L 23 94 10/27/22 01:57 79 20 167/87 H 93 Nasal Cannula 10/26/22 23:30 64 10/26/22 22:45 65 23 95 O2 Flow Rate FiO2 10/27/22 08:00 6.0 10/27/22 07:17 5 10/27/22 03:40 35 10/27/22 01:57 10/26/22 23:30 10/26/22 22:45 35 Critical Care Results & Data Vital Signs (Past 12 Hours) Vital Signs Temp Pulse Pulse Resp BP Pulse Ox O2 Del Method 10/27/22 08:00 37.0 C 66 22 118/67 97 Nasal Cannula 10/27/22 07:17 63 18 95 Nasal Cannula 10/27/22 03:40 55 L 23 94 10/27/22 01:57 79 20 167/87 H 93 Nasal Cannula 10/26/22 23:30 64 10/26/22 22:45 65 23 95 O2 Flow Rate FiO2 10/27/22 08:00 6.0 10/27/22 07:17 5 10/27/22 03:40 35 10/27/22 01:57 10/26/22 23:30 10/26/22 22:45 35 Lab & Micro Results (Past 24 Hours) RBC 3.73 M/uL (4.20-5.40) L 10/27/22 WBC 8.28 K/ul (4.8-10.8) 10/27/22 Hgb 11.5 g/dl (12.0-16.0) L 10/27/22 Hct 36.8 % (37.0-47.0) L 10/27/22 MCV 98.7 fL (80.0-100.0) 10/27/22 MCH 30.8 pg (25.0-34.0) 10/27/22 MCHC 31.3 g/dL (32.0-36.0) L 10/27/22 RDW Standard Deviation 50.0 fL (36.4-46.3) H 10/27/22 RDW Coefficient of Variation 13.7 % (11.5-14.5) 10/27/22 Plt Count 215 K/uL (130-400) 10/27/22 MPV 10.4 fL (9.4-12.4) 10/27/22 Neutrophils (%) (Auto) 69.7 % 10/27/22 Lymphocytes (%) (Auto) 18.0 % 10/27/22 Monocytes # (Auto) 0.91 K/uL (0.11-0.59) H 10/27/22 Eosinophils # (Auto) 0.07 K/uL (0-0.50) 10/27/22 Immature Granulocyte % (Auto) 0.4 % 10/27/22 Neutrophils # (Auto) 5.77 K/uL (1.40-6.50) 10/27/22 Lymphocytes # (Auto) 1.49 K/uL (1.2-3.4) 10/27/22 Monocytes # (Auto) 0.91 K/uL (0.11-0.59) H 10/27/22 Eosinophils # (Auto) 0.07 K/uL (0-0.50) 10/27/22 Basophils # (Auto) 0.01 K/uL (0-0.2) 10/27/22 Immature Granulocyte # (Auto) 0.03 K/uL (0.01-0.20) 3 Na 139 mmol/L (136-145) 10/27/22 K 3.7 mmol/L (3.5-5.1) 10/27/22 Cl 93 mmol/L (98-107) L 10/27/22 CO2 42 mmol/L (21-32) H* 10/27/22 Anion Gap 4 (3-11) 10/27/22 BUN 38 mg/dl (6-23) H 10/27/22 Creatinine 0.69 mg/dl (0.6-1.2) 10/27/22 Estimated GFR ( Amer) 105.9 ml/min 10/27/22 Estimated GFR (Non-Af Amer) 91.4 ml/min 10/27/22 BUN/Creatinine Ratio 55.1 (10-20) H 10/27/22 Glu 93 mg/dl (70-99(Fasting)) 10/27/22 Ca 9.6 mg/dl (8.5-10.1) 10/27/22 Phosphorus Level 4.4 mg/dl (2.5-4.9) 10/27/22 Mg 2.0 mg/dl (1.7-2.4) 10/27/22 06:24 Calcium Level 9.6 mg/dl (8.5-10.1) 10/27/22 06:24 I & O Totals 24 Hours 10/26/22 10/27/22 10/28/22 06:59 06:59 06:59 Intake Total 843.333 / 843.333 750 / 750 Output Total 3650 / 3650 3050 / 3050 Balance -2806.667 / -2806.667 -2300 / -2300 Cumulative 10/24/22 12:38 thru 10/27/22 06:00 Intake Total 2193.333 Output Total 8050 Balance -5856.667 RT Ventilator Mngmt (Last Documented) Ventilator Ordered Settings Respiratory Rate 22 10/27/22 08:00 Fraction of Inspired Oxygen 35 10/27/22 03:40 Ventilator - PT Measurements Respiratory Rate 22 PG Care Time/CCT Total # of Minutes Spent Total Time Spent with Patient: Total time spent is greater than 50% in coordination of care (as documented) at patient's floor/unit and/or counseling patient: Coding Level of Care Code 36948 SUB INP/OBS CARE 2/35MIN Diagnoses Acute respiratory failure with hypoxia and hypercarbia J96.01; J96.02 Acute respiratory acidosis J96.02 BHAVIK on CPAP G47.33; Z99.89 Acute on chronic diastolic CHF (congestive heart failure) I50.33 Primary cancer of right lower lobe of lung C34.31
[2022-10-27] MEDS: METOPROLOL SUCC 25MG EXT REL TAB PO SCH ×3 (08:38→20:51)
[2022-10-27] MEDS: ENOXAPARIN INJ 40 MG/0.4 ML SYR SQ SCH ×2 (08:39→08:44)
[2022-10-27] MEDS: INSULIN ASPART PER UNIT SC SCH ×4 (08:44→20:20)
[2022-10-27] MEDS: LANTUS PER UNIT CHARGE SQ SCH ×2 (08:45→20:27)
[2022-10-27] MEDS: predniSONE 20 MG TAB PO SCH (09:10)
[2022-10-27] MEDS: FLUTICASONE/VILANTEROL 100/25MCG 14 PUFFS/INHALER INH SCH (09:32)
--- NOTE | 2022-10-27 09:51 | Cardiology Progress Note ---
Date of Service October 27, 2022 Assessment & Plan (1) Acute respiratory failure with hypoxia and hypercarbia: (2) Acute respiratory acidosis: (3) Acute on chronic diastolic CHF (congestive heart failure): Plan Patient is a 67-year-old female who presents with acute hypoxic and hypercarbic respiratory failure with mixed etiology with underlying hypoxic obstructive lung disease superimposed on diastolic heart failure. Clinically improving. No signs of fluid retention on exam this morning with BMP reflecting mild contraction alkalosis superimposed on chronic respiratory issues Appreciate pulmonology input Diuretics now oral with increased furosemide to 40 twice daily Coreg discontinued and patient begun on metoprolol succinate 12.5 mg twice per day. Discussed its use in detail with patient she feels in past metoprolol tartrate resulted in hypertension Discussed use and would continue metoprolol succinate at current dosing which has allowed for better blood pressure control as well as antiarrhythmic therapy Lisinopril currently on hold. May consider restart at low-dose depending on blood pressure response to above change. Overall systolic function is preserved with reduced indications for diastolic dysfunction Admission and Anticipated Discharge Date Admission Date: October 24, 2022 Subjective Patient seen and examined, chart, medications, telemetry reviewed. Pulmonary status stable per patient still with mild cough and wheeze on forced expiration No chest pains No worsening edema Using oxygen and BiPAP overnight Physical Exam Constitutional: + obese Eyes: PERRL, conjunctivae normal, anicteric sclerae ENMT: external ear and nose normal, oropharynx normal Neck: + thick neck Respiratory: + audible wheezes (And rhonchi with forced cough) Cardiovascular: RRR, no murmur, no edema Extremities: no edema Gastrointestinal (Abdomen): Percussion/Palpation: abdomen soft (With large panniculus) Musculoskeletal: no cyanosis or clubbing, extremities motor strength 5/5 Results & Data ([facility]) Vital Signs (Past 12 Hours) Vital Signs Temp Pulse Pulse Resp BP Pulse Ox O2 Del Method 10/27/22 09:00 Nasal Cannula 10/27/22 09:00 62 10/27/22 08:00 37.0 C 66 22 118/67 97 Nasal Cannula 10/27/22 07:17 63 18 95 Nasal Cannula 10/27/22 03:40 55 L 23 94 10/27/22 01:57 79 20 167/87 H 93 Nasal Cannula 10/26/22 23:30 64 10/26/22 22:45 65 23 95 O2 Flow Rate FiO2 10/27/22 09:00 4 10/27/22 09:00 10/27/22 08:00 6.0 10/27/22 07:17 5 10/27/22 03:40 35 10/27/22 01:57 10/26/22 23:30 10/26/22 22:45 35 Laboratory Results Laboratory Results - last 24 hr 10/26/22 10/26/22 10/26/22 12:51 17:58 18:27 WBC RBC Hgb Hct MCV MCH MCHC RDW Std Deviation RDW Coeff of Naa Plt Count MPV Immature Gran % (Auto) Neut % (Auto) Lymph % (Auto) [place] % (Auto) Eos % (Auto) Baso % (Auto) Neut # (Auto) Lymph # (Auto) [place] # (Auto) Eos # (Auto) Baso # (Auto) Immature Gran # (Auto) Sodium 139 139 Potassium 4.9 4.3 Chloride 93 L 94 L Carbon Dioxide 39 H 37 H Anion Gap 7 8 BUN 36 H 40 H Creatinine 1.04 D 1.13 Est Cr Clr Drug Dosing 59.7 54.9 Est GFR ( Amer) 65.3 59.1 Est GFR (Non-Af Amer) 56.3 51.0 BUN/Creatinine Ratio 34.6 H 35.4 H Glucose 195 H 187 H POC Glucose 198 H Calcium 10.3 H 9.8 Phosphorus Magnesium PTH Intact 10/26/22 10/27/22 10/27/22 20:18 06:24 06:24 WBC 8.28 RBC 3.73 L Hgb 11.5 L Hct 36.8 L MCV 98.7 MCH 30.8 MCHC 31.3 L RDW Std Deviation 50.0 H RDW Coeff of Naa 13.7 Plt Count 215 MPV 10.4 Immature Gran % (Auto) 0.4 Neut % (Auto) 69.7 Lymph % (Auto) 18.0 [place] % (Auto) 11.0 Eos % (Auto) 0.8 Baso % (Auto) 0.1 Neut # (Auto) 5.77 Lymph # (Auto) 1.49 [place] # (Auto) 0.91 H Eos # (Auto) 0.07 Baso # (Auto) 0.01 Immature Gran # (Auto) 0.03 Sodium Potassium Chloride Carbon Dioxide Anion Gap BUN Creatinine Est Cr Clr Drug Dosing Est GFR ( Amer) Est GFR (Non-Af Amer) BUN/Creatinine Ratio Glucose POC Glucose 128 H Calcium Phosphorus Magnesium PTH Intact 64.4 10/27/22 10/27/22 06:24 07:21 WBC RBC Hgb Hct MCV MCH MCHC RDW Std Deviation RDW Coeff of Naa Plt Count MPV Immature Gran % (Auto) Neut % (Auto) Lymph % (Auto) [place] % (Auto) Eos % (Auto) Baso % (Auto) Neut # (Auto) Lymph # (Auto) [place] # (Auto) Eos # (Auto) Baso # (Auto) Immature Gran # (Auto) Sodium 139 Potassium 3.7 Chloride 93 L Carbon Dioxide 42 H* Anion Gap 4 BUN 38 H Creatinine 0.69 D Est Cr Clr Drug Dosing 91.5 Est GFR ( Amer) 105.9 Est GFR (Non-Af Amer) 91.4 BUN/Creatinine Ratio 55.1 H Glucose 93 POC Glucose 84 Calcium 9.6 Phosphorus 4.4 Magnesium 2.0 PTH Intact
--- NOTE | 2022-10-27 12:18 | Hospitalist Progress Note ---
Date of Service October 27, 2022 Assessment & Plan (1) Acute respiratory failure with hypoxia and hypercarbia: (2) Acute heart failure with preserved ejection fraction: (3) Acute respiratory acidosis: (4) COPD with acute exacerbation: Plan: Continues on IV diuretics with ongoing hypoxia, stopped nitro paste. Continues on daily steroids at this point and there is no wheezing-transitioned to prednisone 20mg this morning by pulm. Bronchodilator nebs PRN. Cont Brovana and budesonide inhalers. Completed a course of abx for presumed pneumonia last admission. Repeat CXR in am. encouraged ambulation. (5) Hyperkalemia: Plan: acute hyperkalemia treated with Lokelma, K is improved to <5. Trend BMP daily (6) Diabetes mellitus, type II: Plan: -A1c of 6.0 recently checked during last hospital stay currently at goal cont insulin for carbohydrate coverage and correction (7) CAD (coronary artery disease): Plan: chronic, stable. Cont medical managment. (8) HLD (hyperlipidemia): Plan: -Continue amlodipine, baby aspirin, carvedilol, lisinopril (9) Obesity (BMI 30.0-34.9): Plan: - BMI of 41.2, diet and exercise to be encouraged prior to discharge (10) Hypothyroid: Plan: - chronic, stable. Cont levothyroxine per home regimen. DVT ppx: scds, lovenox subq CODE: Full code Dispo: PCU, to home when oxygen needs are not as high. Sheri Larson [facility] and Anticipated Discharge Date Admission Date: October 24, 2022 Subjective 67 yo F presented with acute respiratory failure off bipap and doing well on supplemental oxygen. Her script says 2LPM at rest with 3LPM with activity and she is using about 5-6 LPM of oxygen now She is interested in ambulating around the room more. tolerating PO denies cp or other issues Review of Systems Review of Systems: All systems were reviewed and negative except as indicated in subjective above Physical Exam Physical Exam: CONSTITUTIONAL: morbid obesity, vitals as above, generally NAD EYES: normal conjunctivae, no scleral icterus ENT: external ear and nose normal NECK: trachea midline RESPIRATORY: clear to auscultation bilaterally, normal respiratory effort, 96% on 5LPM NC CARDIOVASCULAR: regular rate and rhythm, S1 and 2 heard without murmurs, gallops or rubs, no JVD, no peripheral edema CHEST: inspection of chest was normal GASTROINTESTINAL: soft, nontender, ND, no guarding MUSCULOSKELETAL: strength 5/5 throughout, head is normocephalic and atraumatic, SKIN: warm and dry NEUROLOGIC: CN 2-12 grossly intact, no sensory deficit, normal cognition, normal speech, no tremor PSYCHIATRIC: alert cooperative and oriented to person, place and time. Results & Data Results & Data ([facility]) Vital Signs (Past 12 Hours) Vital Signs Temp Pulse Pulse Resp BP Pulse Ox O2 Del Method 10/27/22 12:02 36.9 C 73 20 115/70 91 Nasal Cannula 10/27/22 09:00 Nasal Cannula 10/27/22 09:00 62 10/27/22 08:00 37.0 C 66 22 118/67 97 Nasal Cannula 10/27/22 07:17 63 18 95 Nasal Cannula 10/27/22 03:40 55 L 23 94 10/27/22 01:57 79 20 167/87 H 93 Nasal Cannula O2 Flow Rate FiO2 10/27/22 12:02 6.0 10/27/22 09:00 4 10/27/22 09:00 10/27/22 08:00 6.0 10/27/22 07:17 5 10/27/22 03:40 35 10/27/22 01:57 Laboratory Results Short CBC 10/27/22 Range/Units 06:24 WBC 8.28 (4.8-10.8) K/ul Hgb 11.5 L (12.0-16.0) g/dl Hct 36.8 L (37.0-47.0) % Plt Count 215 (130-400) K/uL BMP 10/26/22 10/26/22 10/27/22 12:51 17:58 06:24 Sodium 139 139 139 Potassium 4.9 4.3 3.7 Chloride 93 L 94 L 93 L Carbon Dioxide 39 H 37 H 42 H* BUN 36 H 40 H 38 H Creatinine 1.04 D 1.13 0.69 D Glucose 195 H 187 H 93 Calcium 10.3 H 9.8 9.6 Medications Administered Current Inpatient Medications Acetaminophen (Acetaminophen 325 Mg Tab) 650 mg PO Q4H PRN PRN Reason: Moderate Pain Stop: 11/23/22 18:33 Last Admin: 10/27/22 06:37 Dose: 650 mg Albuterol (Albut/Ipratrop 3mg/0.5mg Neb 3 Ml Vial) 3 ml NEB Q4R PRN; Protocol PRN Reason: SOB/wheezing Stop: 11/23/22 18:59 Last Admin: 10/26/22 18:57 Dose: 3 ml Aspirin (Aspirin 81 Mg Ectab) 81 mg PO QAM [facility] Stop: 11/24/22 08:59 Last Admin: 10/27/22 08:37 Dose: 81 mg Dextrose (Dextrose 50% 50 Ml Syringe) 25 - 50 ml IV UD PRN; Protocol PRN Reason: Hypoglycemia Protocol Stop: 11/23/22 18:33 Ezetimibe (Ezetimibe 10 Mg Tablet) 10 mg PO DAILY [facility] Stop: 11/24/22 08:59 Last Admin: 10/27/22 08:37 Dose: 10 mg Enoxaparin Sodium (Enoxaparin Inj 40 Mg/0.4 Ml Syr) 40 mg SQ QAM [facility] Stop: 11/24/22 08:59 Last Admin: 10/27/22 08:44 Dose: Not Given Fluticasone Propionate (Fluticasone Propionate Na Spr 16 Gm Btl) 2 sprays NA DAILY PRN PRN Reason: Congestion Stop: 11/23/22 18:33 Fluticasone/Vilanterol (Fluticasone/Vilanterol 100/25mcg 14 Puffs/Inhaler) 1 puffs INH DAILY [facility] Stop: 11/26/22 08:59 Last Admin: 10/27/22 09:32 Dose: 1 puffs Furosemide (Furosemide 40 Mg Tab) 40 mg PO [id number] [facility] Stop: 11/25/22 17:59 Last Admin: 10/27/22 08:37 Dose: 40 mg Glucagon (Glucagon For Inj 1 Mg Vial) 1 mg SQ UD PRN; Protocol PRN Reason: Hypoglycemia Protocol Stop: 11/23/22 18:33 Glucose (Glucose 40% Gel 15 Gm Tube) 15 - 30 gm PO UD PRN; Protocol PRN Reason: Hypoglycemia Protocol Stop: 11/23/22 18:33 Glucose (Glucose 10 Tab/Tube) 4 - 8 tab PO UD PRN; Protocol PRN Reason: Hypoglycemia Treatment Stop: 11/23/22 18:33 Insulin Aspart (Insulin Aspart Per Unit) 0 units SC ACHS [facility] Stop: 11/25/22 20:59 Last Admin: 10/27/22 11:49 Dose: 5 units Insulin Glargine (Lantus Per Unit Charge) 5 units SQ BID [facility] Stop: 11/23/22 21:14 Last Admin: 10/27/22 08:45 Dose: 5 units Levothyroxine Sodium (Levothyroxine Sodium 150 Mcg Tablet) 150 mcg PO DAILYBB [facility] Stop: 11/24/22 06:29 Last Admin: 10/27/22 06:37 Dose: 150 mcg Lisinopril (Lisinopril 40 Mg Tab) 40 mg PO QAM [facility] Stop: 11/24/22 08:59 Metoprolol Succinate (Metoprolol Succ 25mg Ext Rel Tab) 12.5 mg PO BID [facility] Stop: 11/25/22 20:59 Last Admin: 10/27/22 09:11 Dose: 12.5 mg Miscellaneous (Carbohydrates For Hypoglycemia ) 15 - 30 gm PO UD PRN PRN Reason: Hypoglycemia Protocol Stop: 11/23/22 18:33 Pantoprazole Sodium (Pantoprazole 40 Mg Tab) 40 mg PO QAM [facility] Stop: 11/26/22 08:59 Last Admin: 10/27/22 08:37 Dose: 40 mg Prednisone (Prednisone 20 Mg Tab) 20 mg PO DAILY [facility] Stop: 10/30/22 08:59 Last Admin: 10/27/22 09:10 Dose: 20 mg Umeclidinium [place] (Umeclidinium [place] 62.5mcg/Blister 7 Puffs/Inhaler) 1 puffs INH DAILY [facility]; Protocol Stop: 11/24/22 08:59 Last Admin: 10/27/22 08:37 Dose: 1 puffs Umeclidinium [place] (Umeclidinium [place] 62.5mcg/Blister 7 Puffs/Inhaler) 1 puffs INH DAILY [facility] Stop: 11/26/22 08:59 Last Admin: 10/27/22 09:33 Dose: 1 puffs
[2022-10-27] MEDS ORDERED: ACETAMINOPHEN 500 MG TAB PO STA (14:24)
[2022-10-27] MEDS: TROLAMINE SALICYLATE 10% CRM 255 APPLN/85 GM TUBE EXT SCH ×2 (15:49→20:31)
[2022-10-28] MEDS: LEVOTHYROXINE SODIUM 150 MCG TABLET PO SCH (05:55)
[2022-10-28] MEDS: ACETAMINOPHEN 325 MG TAB PO PRN ×3 (05:57→19:51)
[2022-10-28 06:13] LABS: Basophils # (auto) 0.02 K/uL (0-0.2); Basophils % (auto) 0.3 %; Eosinophils # (auto) 0.14 K/uL (0-0.50); Hematocrit (blood only) 40.3 % (37.0-47.0); Hemoglobin 12.4 g/dl (12.0-16.0); Immature Granulocytes # (auto) 0.01 K/uL (0.01-0.20); Immature Granulocytes % (auto) 0.1 %; Lymphocytes % (auto) 18.7 %; Mean Corpuscular Hemoglobin 30.2 pg (25.0-34.0); Mean Corpuscular Hgb Conc 30.8 g/dL (32.0-36.0); Mean Corpuscular Volume 98.3 fL (80.0-100.0); Mean Platelet Volume 10.3 fL (9.4-12.4); Monocytes # (auto) 0.74 K/uL (0.11-0.59); Monocytes % (auto) 10.6 %; Neutrophils # (auto) 4.76 K/uL (1.40-6.50); Neutrophils % (auto) 68.3 %; Platelet Count 219 K/uL (130-400); RDW Coefficient of Variation 13.7 % (11.5-14.5); RDW Standard Deviation 49.9 fL (36.4-46.3); White Blood Count 6.97 K/ul (4.8-10.8)
[2022-10-28 06:35] LABS: BUN Creatinine Ratio 53.2 (10-20); Calcium 9.6 mg/dl (8.5-10.1); Creatinine Clr Calc Pharmacy 81.5 ml/min; Est GFR (African American) 93.9 ml/min; Magnesium 2.1 mg/dl (1.7-2.4); Phosphorus 4.4 mg/dl (2.5-4.9); Potassium 3.7 mmol/L (3.5-5.1)
[2022-10-28 07:09] LABS: Base Excess ABG 19.4 mEq/L (-9-1.8); HCO3 ABG 46 mmol/L (19-24); Oxygen Saturation ABG 99.3 % (90-95); PCO2 ABG 59 mmHg (35-46); PO2 ABG 102 mmHg (80-95)
[2022-10-28 07:13] LABS: Allen Test POS (Pos)
--- NOTE | 2022-10-28 07:46 | Pulmonology Progress Note ---
Date of Service October 28, 2022 Assessment & Plan (1) Acute respiratory failure with hypoxia and hypercarbia: (2) Acute respiratory acidosis: (3) BHAVIK on CPAP: (4) Acute on chronic diastolic CHF (congestive heart failure): (5) Primary cancer of right lower lobe of lung: Plan Impression: 67-year-old female with overlap syndrome (obstructive lung disease/sleep disordered breathing) on CPAP as an outpatient admitted with hypoxemic hypercarbic respiratory failure. She is improved clinically. She has a history of lung cancer treated with stereotactic radiation therapy Recommendations: 1. Sleep disordered breathing: Patient's daughter brought her CPAP from home. She reports getting much better sleep last night while utilizing this device. Will encourage continued use of this moving forward. She can continue to follow with her sleep specialist and lode miner through [facility] at the time of discharge. 2. Hypoxemic respiratory failure: She continues to diurese and her symptoms have improved. She was on 5 L when I came to the room, however I was able to titrate her down to 3.5 L. Patient can comfortably be with oxygen saturations in the 88-92 range given her significant history of COPD and risk for CO2 retention. Communicated this with nursing staff. Hopefully, patient will be able to ambulate the halls today and we will see how she does with movement. 3. Morbid obesity: Weight loss is imperative. Consider referral to bariatric medicine and outpatient referral to exhibit display representative to assist with weight loss. 4. COPD: Patient was on Symbicort Spiriva and as needed albuterol in the outpatient setting. Patient continues to do well. Transition to home inhalers. She is titrated down off of her prednisone. 5. Discussed increasing activity today. She hopes to be able to ambulate the hallway. 6. Hypercarbic respiratory failure: The patient's pH is controlled currently. Would not try and normalize her CO2 levels. I think at this point in time compliance with BiPAP and oxygen as per her prior sleep study and clinical follow-up with her outpatient pulmonary group at [facility] and consideration for repeat ABG in 4 to 6 weeks would be appropriate. At this point, the patient has improved from a pulmonary standpoint and is near her baseline. We will defer continued diuresis to the cardiology/primary service. Otherwise, her oxygen requirement and pulmonary toilet are near baseline from what the patient utilizes in the outpatient setting. Thank you for allowing us to participate in the care of this patient. Pulmonary will sign off at this time. Please feel free to reach out to us if we can be of any service to this patient. Admission and Anticipated Discharge Date Admission Date: October 24, 2022 Supervising Physician Co-Signing Physician Notes Patient seen and examined. EMR reviewed. The patient is doing better on her home positive airway pressure. Her oxygen requirement appears to be at baseline. Would recommend discontinuation of Dominguez catheter and continuing to mobilize the patient with an active ambulation program. She is likely approaching dismissal from the hospital. She can follow-up with [facility] pulmonary who she is established with. Pulmonary will sign off at this point time. Feel free to contact us with additional questions or concerns. Subjective Patient was seen and evaluated bedside this morning. She is currently eating breakfast. She states that she had a good night sleep as she had her home BiPAP and feels as though it is made quite a difference. She states that she has had no shortness of breath and is able to ambulate around the room without issues. She admits that she has not tried ambulating the hallways yet. She reports feeling almost back to her baseline as far as her breathing is concerned. She endorses no cough or hemoptysis. No chest pain or palpitations. No fevers. Otherwise, she reports feeling better. Review of Systems Review of Systems: A complete 10 point review of systems was reviewed with the patient with pertinent positives and negatives as per history of present illness. All else were negative. Physical Exam Physical Exam: VITAL SIGNS - Vital signs and nursing notes were reviewed. GENERAL - 67-year-old female appearing her stated age who is in no acute distress. Communicates well with provider and answers questions appropriately. LUNGS - Chest wall symmetric without accessory muscle use, intercostals retractions, or central cyanosis. Diminished breath sounds at the bilateral bases. Slight crackles at the bases. No wheezing appreciated CARDIAC - RRR with S1/S2. No murmur, rubs, or gallops appreciated. ABDOMEN - Abdominal contour obese without pulsations or visible masses. BS normoactive all four quadrants. No tenderness, palpable masses, hepatosplenomegaly, or ascites noted. EXTREMITIES - No clubbing or peripheral cyanosis. No pretibial edema present. +3/5 radial and dorsalis pedis pulses palpated throughout. +5/5 strength noted in UE/LE bilaterally. PSYCH - A&Ox3 and cooperates fully with examiner. Pt is very pleasant and i nteracts well with examiner. Results & Data Results & Data ([facility]) Vital Signs (Past 12 Hours) Vital Signs Temp Pulse Pulse Pulse Resp BP BP 10/28/22 07:23 36.4 C L 61 20 107/66 10/28/22 03:00 36.8 C 54 L 20 122/70 10/27/22 23:00 58 L 10/27/22 23:11 36.6 C 62 20 113/65 10/27/22 20:00 10/27/22 20:37 36.8 C 72 20 121/70 Pulse Ox O2 Del Method O2 Flow Rate 10/28/22 07:23 97 Nasal Cannula 7 10/28/22 03:00 91 BiPAP 10/27/22 23:00 10/27/22 23:11 93 BiPAP 10/27/22 20:00 Nasal Cannula, BiPAP 5 10/27/22 20:37 95 Nasal Cannula PG Care Time/CCT Total # of Minutes Spent Total Time Spent with Patient: Total time spent is greater than 50% in coordination of care (as documented) at patient's floor/unit and/or counseling patient: Coding Level of Care Code 21793 SUB INP/OBS CARE 2/35MIN Diagnoses Acute respiratory failure with hypoxia and hypercarbia J96.01; J96.02 Acute respiratory acidosis J96.02 BHAVIK on CPAP G47.33; Z99.89 Acute on chronic diastolic CHF (congestive heart failure) I50.33 Primary cancer of right lower lobe of lung C34.31
[2022-10-28] MEDS: INSULIN ASPART PER UNIT SC SCH ×4 (08:09→21:28)
[2022-10-28] MEDS: LANTUS PER UNIT CHARGE SQ SCH ×2 (08:10→19:59)
[2022-10-28] MEDS: FUROSEMIDE 40 MG TAB PO SCH (08:20)
[2022-10-28] MEDS: predniSONE 20 MG TAB PO SCH (08:20)
[2022-10-28] MEDS: METOPROLOL SUCC 25MG EXT REL TAB PO SCH ×2 (08:21→20:01)
[2022-10-28] MEDS: ASPIRIN 81 MG ECTAB PO SCH (08:21)
[2022-10-28] MEDS: PANTOprazole 40 MG TAB PO SCH (08:21)
[2022-10-28] MEDS: EZETIMIBE 10 MG TABLET PO SCH (08:21)
[2022-10-28] MEDS: UMECLIDINIUM BROMIDE 62.5MCG/BLISTER 7 PUFFS/INHALER INH SCH ×2 (08:21→08:23)
[2022-10-28] MEDS: FLUTICASONE/VILANTEROL 100/25MCG 14 PUFFS/INHALER INH SCH (08:22)
[2022-10-28] MEDS: ENOXAPARIN INJ 40 MG/0.4 ML SYR SQ SCH (08:22)
[2022-10-28] MEDS: TROLAMINE SALICYLATE 10% CRM 255 APPLN/85 GM TUBE EXT SCH ×3 (08:23→20:02)
--- NOTE | 2022-10-28 10:51 | XRay Report ---
XR chest 1V portable CLINICAL HISTORY: persistent hypoxia TECHNIQUE: Single frontal radiograph of the chest was obtained. Comparison: Comparison is made to chest radiograph 10/26/2022 FINDINGS: No lines and tubes are seen. Cardiomegaly is noted. The lungs are clear. No evidence of pleural effus ion or pneumothorax. IMPRESSION: No acute abnormalities and in particular no evidence of pneumonia. ACT 112: Negative or not required by law. Electronically signed by: Marco A Dozier M.D. 10/28/2022 10:49 AM
--- NOTE | 2022-10-28 12:24 | Hospitalist Progress Note ---
Date of Service October 28, 2022 Assessment & Plan (1) Acute respiratory failure with hypoxia and hypercarbia: (2) Acute heart failure with preserved ejection fraction: (3) Acute respiratory acidosis: (4) COPD with acute exacerbation: Plan: IV diuretics put on hold with metabolic alkalosis. Hypoxia improved. Continues on prednisone 20mg PO daily per pulm. Bronchodilator nebs PRN. Cont Brovana and budesonide inhalers. Completed a course of abx for presumed pneumonia last admission. Repeat CXR this am with improvement. (5) Hyperkalemia: Plan: acute hyperkalemia treated with Lokelma, this has resolved. (6) Diabetes mellitus, type II: Plan: -A1c of 6.0 recently checked during last hospital stay currently at goal cont insulin for carbohydrate coverage and correction (7) CAD (coronary artery disease): Plan: chronic, stable. Cont medical managment. (8) HLD (hyperlipidemia): Plan: -Continue amlodipine, baby aspirin, carvedilol, lisinopril (9) Obesity (BMI 30.0-34.9): Plan: - BMI of 41.2, diet and exercise to be encouraged prior to discharge (10) Hypothyroid: Plan: - chronic, stable. Cont levothyroxine per home regimen. DVT ppx: scds, lovenox subq CODE: Full code Dispo: PCU, to home when oxygen needs are closer to baseline, possibly tomorrow. Also, pending cardiology clearing her for discharge. Sheri Larson DO [facility] Hospitalist Admission and Anticipated Discharge Date Admission Date: October 24, 2022 Subjective 67 yo F presented with acute respiratory failure off bipap and doing well on supplemental oxygen. Using home BIPAP overnight Ambulated around the floor tolerating PO denies cp or other issues Review of Systems Review of Systems: All systems were reviewed and negative except as indicated in subjective above Physical Exam Physical Exam: CONSTITUTIONAL: morbid obesity, vitals as above, generally NAD EYES: normal conjunctivae, no scleral icterus ENT: external ear and nose normal NECK: trachea midline RESPIRATORY: clear to auscultation bilaterally, normal respiratory effort, 96% on 5LPM NC CARDIOVASCULAR: regular rate and rhythm, S1 and 2 heard without murmurs, gallops or rubs, no JVD, no peripheral edema CHEST: inspection of chest was normal GASTROINTESTINAL: soft, nontender, ND, no guarding MUSCULOSKELETAL: strength 5/5 throughout, head is normocephalic and atraumatic, SKIN: warm and dry NEUROLOGIC: CN 2-12 grossly intact, no sensory deficit, normal cognition, normal speech, no tremor PSYCHIATRIC: alert cooperative and oriented to person, place and time. Results & Data Results & Data ([facility]) Vital Signs (Past 12 Hours) Vital Signs Temp Pulse Pulse Pulse Resp BP BP 10/28/22 09:00 10/28/22 09:00 59 L 10/28/22 07:23 36.4 C L 61 20 107/66 10/28/22 03:00 36.8 C 54 L 20 122/70 Pulse Ox O2 Del Method O2 Flow Rate 10/28/22 09:00 High Flow Nasal Cannula 3.5 10/28/22 09:00 10/28/22 07:23 97 Nasal Cannula 7 10/28/22 03:00 91 BiPAP Laboratory Results Short CBC 10/28/22 Range/Units 05:53 WBC 6.97 (4.8-10.8) K/ul Hgb 12.4 (12.0-16.0) g/dl Hct 40.3 (37.0-47.0) % Plt Count 219 (130-400) K/uL BMP 10/28/22 05:53 Sodium 142 Potassium 3.7 Chloride 93 L Carbon Dioxide 44 H* BUN 41 H Creatinine 0.77 Glucose 84 Calcium 9.6 Diagnostic Findings Chest X-Ray 10/28/22 07:00 XR chest 1V portable CLINICAL HISTORY: persistent hypoxia TECHNIQUE: Single frontal radiograph of the chest was obtained. Comparison: Comparison is made to chest radiograph 10/26/2022 FINDINGS: No lines and tubes are seen. Cardiomegaly is noted. The lungs are clear. No evidence of pleural effusion or pneumothorax. IMPRESSION: No acute abnormalities and in particular no evidence of pneumonia. ACT 112: Negative or not required by law. Electronically signed by: Marco A Dozier M.D. 10/28/2022 10:49 AM Medications Administered Current Inpatient Medications Acetaminophen (Acetaminophen 325 Mg Tab) 650 mg PO Q4H PRN PRN Reason: Moderate Pain Stop: 11/23/22 18:33 Last Admin: 10/28/22 11:33 Dose: 650 mg Albuterol (Albut/Ipratrop 3mg/0.5mg Neb 3 Ml Vial) 3 ml NEB Q4R PRN; Protocol PRN Reason: SOB/wheezing Stop: 11/23/22 18:59 Last Admin: 10/26/22 18:57 Dose: 3 ml Aspirin (Aspirin 81 Mg Ectab) 81 mg PO QAM [facility] Stop: 11/24/22 08:59 Last Admin: 10/28/22 08:21 Dose: 81 mg Dextrose (Dextrose 50% 50 Ml Syringe) 25 - 50 ml IV UD PRN; Protocol PRN Reason: Hypoglycemia Protocol Stop: 11/23/22 18:33 Ezetimibe (Ezetimibe 10 Mg Tablet) 10 mg PO DAILY [facility] Stop: 11/24/22 08:59 Last Admin: 10/28/22 08:21 Dose: 10 mg Enoxaparin Sodium (Enoxaparin Inj 40 Mg/0.4 Ml Syr) 40 mg SQ QAM [facility] Stop: 11/24/22 08:59 Last Admin: 10/28/22 08:22 Dose: Not Given Fluticasone Propionate (Fluticasone Propionate Na Spr 16 Gm Btl) 2 sprays NA DAILY PRN PRN Reason: Congestion Stop: 11/23/22 18:33 Fluticasone/Vilanterol (Fluticasone/Vilanterol 100/25mcg 14 Puffs/Inhaler) 1 puffs INH DAILY NABEEL Stop: 11/26/22 08:59 Last Admin: 10/28/22 08:22 Dose: 1 puffs Furosemide (Furosemide 40 Mg Tab) 40 mg PO [id number] NABEEL Stop: 11/25/22 17:59 Last Admin: 10/28/22 08:20 Dose: 40 mg Glucagon (Glucagon For Inj 1 Mg Vial) 1 mg SQ UD PRN; Protocol PRN Reason: Hypoglycemia Protocol Stop: 11/23/22 18:33 Glucose (Glucose 40% Gel 15 Gm Tube) 15 - 30 gm PO UD PRN; Protocol PRN Reason: Hypoglycemia Protocol Stop: 11/23/22 18:33 Glucose (Glucose 10 Tab/Tube) 4 - 8 tab PO UD PRN; Protocol PRN Reason: Hypoglycemia Treatment Stop: 11/23/22 18:33 Insulin Aspart (Insulin Aspart Per Unit) 0 units SC ACHS NABEEL Stop: 11/25/22 20:59 Last Admin: 10/28/22 11:57 Dose: 11 units Insulin Glargine (Lantus Per Unit Charge) 5 units SQ BID [facility] Stop: 11/23/22 21:14 Last Admin: 10/28/22 08:10 Dose: 5 units Levothyroxine Sodium (Levothyroxine Sodium 150 Mcg Tablet) 150 mcg PO DAILYBB [facility] Stop: 11/24/22 06:29 Last Admin: 10/28/22 05:55 Dose: 150 mcg Lisinopril (Lisinopril 40 Mg Tab) 40 mg PO QAM [facility] Stop: 11/24/22 08:59 Metoprolol Succinate (Metoprolol Succ 25mg Ext Rel Tab) 12.5 mg PO BID [facility] Stop: 11/25/22 20:59 Last Admin: 10/28/22 08:21 Dose: 12.5 mg Miscellaneous (Carbohydrates For Hypoglycemia ) 15 - 30 gm PO UD PRN PRN Reason: Hypoglycemia Protocol Stop: 11/23/22 18:33 Pantoprazole Sodium (Pantoprazole 40 Mg Tab) 40 mg PO QAM [facility] Stop: 11/26/22 08:59 Last Admin: 10/28/22 08:21 Dose: 40 mg Prednisone (Prednisone 20 Mg Tab) 20 mg PO DAILY [facility] Stop: 10/30/22 08:59 Last Admin: 10/28/22 08:20 Dose: 20 mg Trolamine Salicylate (Trolamine Salicylate 10% Crm 255 Appln/85 Gm Tube) 1 appln EXT TID [facility] Stop: 11/26/22 14:29 Last Admin: 10/28/22 08:23 Dose: 1 appln Umeclidinium [place] (Umeclidinium [place] 62.5mcg/Blister 7 Puffs/Inhaler) 1 puffs INH DAILY [facility]; Protocol Stop: 11/24/22 08:59 Last Admin: 10/28/22 08:21 Dose: 1 puffs
--- NOTE | 2022-10-28 12:36 | Cardiology Progress Note ---
Date of Service October 28, 2022 Assessment & Plan (1) Acute respiratory failure with hypoxia and hypercarbia: (2) Acute respiratory acidosis: (3) Acute on chronic diastolic CHF (congestive heart failure): Plan Patient is a 67-year-old female who presents with acute hypoxic and hypercarbic respiratory failure with mixed etiology with underlying hypoxic obstructive lung disease superimposed on diastolic heart failure. Clinically improving. No signs of fluid retention on exam this morning with BMP reflecting mild contraction alkalosis superimposed on chronic respiratory issues \\ 10/28/2022 Clinically improved. Received oral furosemide this morning and continues to manifest diuresis. Otherwise on hold until assessment. Suspect will spontaneously diurese as respiratory status and oxygenation has improved Agree with increased ambulation Continue low-dose metoprolol succinate Would not restart lisinopril Admission and Anticipated Discharge Date Admission Date: October 24, 2022 Subjective Patient seen and examined, chart, medications telemetry reviewed. Patient clinically appears improved less dyspneic. Was able to use home CPAP last evening. Heart rates are better controlled blood pressure trending downward Patient having significant diuresis likely as oxygenation and acidosis has improved Physical Exam Constitutional: + obese Eyes: PERRL, conjunctivae normal, anicteric sclerae ENMT: external ear and nose normal, oropharynx normal Neck: + thick neck Respiratory: + audible wheezes (And rhonchi with forced cough) Cardiovascular: RRR, no murmur, no edema Extremities: no edema Gastrointestinal (Abdomen): Percussion/Palpation: abdomen soft (With large panniculus) Musculoskeletal: no cyanosis or clubbing, extremities motor strength 5/5 Results & Data ([facility]) Vital Signs (Past 12 Hours) Vital Signs Temp Pulse Pulse Pulse Resp BP BP 10/28/22 09:00 10/28/22 09:00 59 L 10/28/22 07:23 36.4 C L 61 20 107/66 10/28/22 03:00 36.8 C 54 L 20 122/70 Pulse Ox O2 Del Method O2 Flow Rate 10/28/22 09:00 High Flow Nasal Cannula 3.5 10/28/22 09:00 10/28/22 07:23 97 Nasal Cannula 7 10/28/22 03:00 91 BiPAP Laboratory Results Laboratory Results - last 24 hr 10/27/22 10/27/22 10/28/22 16:16 20:16 05:53 WBC 6.97 RBC 4.10 L Hgb 12.4 Hct 40.3 MCV 98.3 MCH 30.2 MCHC 30.8 L RDW Std Deviation 49.9 H RDW Coeff of Naa 13.7 Plt Count 219 MPV 10.3 Immature Gran % (Auto) 0.1 Neut % (Auto) 68.3 Lymph % (Auto) 18.7 [place] % (Auto) 10.6 Eos % (Auto) 2.0 Baso % (Auto) 0.3 Neut # (Auto) 4.76 Lymph # (Auto) 1.30 [place] # (Auto) 0.74 H Eos # (Auto) 0.14 Baso # (Auto) 0.02 Immature Gran # (Auto) 0.01 ABG pH ABG pCO2 ABG pO2 ABG HCO3 ABG O2 Saturation ABG Base Excess Christian Test Oxygen Given Sodium Potassium Chloride Carbon Dioxide Anion Gap BUN Creatinine Est Cr Clr Drug Dosing Est GFR ( Amer) Est GFR (Non-Af Amer) BUN/Creatinine Ratio Glucose POC Glucose 128 H 90 Calcium Phosphorus Magnesium 10/28/22 10/28/22 10/28/22 05:53 06:50 06:59 WBC RBC Hgb Hct MCV MCH MCHC RDW Std Deviation RDW Coeff of Naa Plt Count MPV Immature Gran % (Auto) Neut % (Auto) Lymph % (Auto) [place] % (Auto) Eos % (Auto) Baso % (Auto) Neut # (Auto) Lymph # (Auto) [place] # (Auto) Eos # (Auto) Baso # (Auto) Immature Gran # (Auto) ABG pH 7.50 H ABG pCO2 59 H ABG pO2 102 H ABG HCO3 46 H ABG O2 Saturation 99.3 H ABG Base Excess 19.4 H Christian Test POS Oxygen Given 7L O2 Sodium 142 Potassium 3.7 Chloride 93 L Carbon Dioxide 44 H* Anion Gap 5 BUN 41 H Creatinine 0.77 Est Cr Clr Drug Dosing 81.5 Est GFR ( Amer) 93.9 Est GFR (Non-Af Amer) 81.0 BUN/Creatinine Ratio 53.2 H Glucose 84 POC Glucose 98 Calcium 9.6 Phosphorus 4.4 Magnesium 2.1 10/28/22 11:09 WBC RBC Hgb Hct MCV MCH MCHC RDW Std Deviation RDW Coeff of Naa Plt Count MPV Immature Gran % (Auto) Neut % (Auto) Lymph % (Auto) [place] % (Auto) Eos % (Auto) Baso % (Auto) Neut # (Auto) Lymph # (Auto) [place] # (Auto) Eos # (Auto) Baso # (Auto) Immature Gran # (Auto) ABG pH ABG pCO2 ABG pO2 ABG HCO3 ABG O2 Saturation ABG Base Excess Christian Test Oxygen Given Sodium Potassium Chloride Carbon Dioxide Anion Gap BUN Creatinine Est Cr Clr Drug Dosing Est GFR ( Amer) Est GFR (Non-Af Amer) BUN/Creatinine Ratio Glucose POC Glucose 100 H Calcium Phosphorus Magnesium
[2022-10-29] MEDS: LEVOTHYROXINE SODIUM 150 MCG TABLET PO SCH (06:16)
[2022-10-29 07:18] LABS: BUN Creatinine Ratio 56.3 (10-20); Calcium 9.3 mg/dl (8.5-10.1); Creatinine Clr Calc Pharmacy 88.4 ml/min; Est GFR (African American) 103.6 ml/min; Est GFR (Non-African American) 89.4 ml/min; Magnesium 2.4 mg/dl (1.7-2.4); Phosphorus 3.4 mg/dl (2.5-4.9); Potassium 3.6 mmol/L (3.5-5.1)
[2022-10-29] MEDS: INSULIN ASPART PER UNIT SC SCH ×4 (08:46→20:35)
[2022-10-29] MEDS: LANTUS PER UNIT CHARGE SQ SCH ×2 (08:48→20:35)
[2022-10-29] MEDS: ASPIRIN 81 MG ECTAB PO SCH (08:49)
[2022-10-29] MEDS: ENOXAPARIN INJ 40 MG/0.4 ML SYR SQ SCH (08:49)
[2022-10-29] MEDS: EZETIMIBE 10 MG TABLET PO SCH (08:50)
[2022-10-29] MEDS: FLUTICASONE/VILANTEROL 100/25MCG 14 PUFFS/INHALER INH SCH (08:50)
[2022-10-29] MEDS: METOPROLOL SUCC 25MG EXT REL TAB PO SCH ×2 (08:51→20:23)
[2022-10-29] MEDS: predniSONE 20 MG TAB PO SCH (08:52)
[2022-10-29] MEDS: PANTOprazole 40 MG TAB PO SCH (08:52)
[2022-10-29] MEDS: UMECLIDINIUM BROMIDE 62.5MCG/BLISTER 7 PUFFS/INHALER INH SCH (08:52)
[2022-10-29] MEDS: TROLAMINE SALICYLATE 10% CRM 255 APPLN/85 GM TUBE EXT SCH ×3 (08:53→20:24)
--- NOTE | 2022-10-29 09:01 | Hospitalist Progress Note ---
Date of Service October 29, 2022 Assessment & Plan (1) Acute respiratory failure with hypoxia and hypercarbia: (2) Acute heart failure with preserved ejection fraction: (3) Acute respiratory acidosis: (4) COPD with acute exacerbation: Plan: IV diuretics put on hold with metabolic alkalosis. Hypoxia improved. Continues on prednisone 20mg PO daily per pulm. - anticipate 5 day course Bronchodilator nebs PRN. Cont Brovana and budesonide inhalers. Completed a course of abx for presumed pneumonia last admission. Repeat CXR with improvement. Cardiology following re: CHF (5) Hyperkalemia: Plan: acute hyperkalemia treated with Lokelma, this has resolved. (6) Diabetes mellitus, type II: Plan: -A1c of 6.0 recently checked during last hospital stay currently at goal cont insulin for carbohydrate coverage and correction (7) CAD (coronary artery disease): Plan: chronic, stable. Cont medical managment. (8) HLD (hyperlipidemia): Plan: -Continue amlodipine, baby aspirin, carvedilol, lisinopril (9) Obesity (BMI 30.0-34.9): Plan: - BMI of 41.2, diet and exercise to be encouraged prior to discharge (10) Hypothyroid: Plan: - chronic, stable. Cont levothyroxine per home regimen. DVT ppx: scds, lovenox subq CODE: Full code Dispo: PCU, to home when oxygen needs are closer to baseline, possibly today/tomorrow. Also, pending cardiology clearing her for discharge. Admission and Anticipated Discharge Date Admission Date: October 24, 2022 Subjective 67 yo F presented with acute respiratory failure off bipap and doing well on supplemental oxygen. Using home BIPAP/cpap overnight Ambulated around the floor yesterday tolerating PO Currently sitting up in bed in NAD, on 3-4L of suppl. O2 - feeling much better overall Denies any chest pain or shortness of breath Review of Systems Review of Systems: All systems reviewed & are unremarkable except as noted in Subjective Physical Exam Physical Exam: CONSTITUTIONAL: morbid obesity, generally NAD, on suppl. O2 EYES: normal conjunctivae, no scleral icterus ENT: external ear and nose normal NECK: supple RESPIRATORY: clear to auscultation bilaterally, normal respiratory effort, 93% on 3-4LPM [place] CARDIOVASCULAR: regular rate and rhythm, S1 and 2 heard without murmurs, gallops or rubs, no JVD, no peripheral edema CHEST: inspection of chest was normal GASTROINTESTINAL: soft, nontender, ND, no guarding MUSCULOSKELETAL: strength 5/5 throughout, head is normocephalic and atraumatic, SKIN: warm and dry NEUROLOGIC:Awake alert oriented, speech fluent, no facial asymmetry, moves extremities Results & Data Results & Data ([facility]) Vital Signs (Past 12 Hours) Vital Signs Temp Pulse Pulse Resp BP Pulse Ox O2 Del Method 10/29/22 07:21 36.8 C 61 18 116/60 93 Nasal Cannula 10/29/22 04:12 36.6 C 51 L 20 114/70 94 BiPAP 10/28/22 22:10 53 L 10/28/22 22:00 36.7 C 53 L 20 112/66 94 BiPAP O2 Flow Rate 10/29/22 07:21 4 10/29/22 04:12 10/28/22 22:10 10/28/22 22:00 Laboratory Results 10/29/22 10/29/22 10/28/22 Range/Units 07:10 05:54 19:53 Sodium 138 (136-145) mmol/L Potassium 3.6 (3.5-5.1) mmol/L Chloride 93 L (98-107) mmol/L Carbon Dioxide 42 H* (21-32) mmol/L Anion Gap 3 (3-11) BUN 40 H (6-23) mg/dl Creatinine 0.71 (0.6-1.2) mg/dl Est Cr Clr Drug Dosing 88.4 ml/min Est GFR ( Amer) 103.6 ml/min Est GFR (Non-Af Amer) 89.4 ml/min BUN/Creatinine Ratio 56.3 H (10-20) Glucose 85 (70-99(Fasting)) mg/dl POC Glucose 90 126 H (70-99) mg/dl Calcium 9.3 (8.5-10.1) mg/dl Phosphorus 3.4 D (2.5-4.9) mg/dl Magnesium 2.4 (1.7-2.4) mg/dl 10/28/22 10/28/22 Range/Units 16:23 11:09 Sodium (136-145) mmol/L Potassium (3.5-5.1) mmol/L Chloride (98-107) mmol/L Carbon Dioxide (21-32) mmol/L Anion Gap (3-11) BUN (6-23) mg/dl Creatinine (0.6-1.2) mg/dl Est Cr Clr Drug Dosing ml/min Est GFR ( Amer) ml/min Est GFR (Non-Af Amer) ml/min BUN/Creatinine Ratio (10-20) Glucose (70-99(Fasting)) mg/dl POC Glucose 119 H 100 H (70-99) mg/dl Calcium (8.5-10.1) mg/dl Phosphorus (2.5-4.9) mg/dl Magnesium (1.7-2.4) mg/dl Medications Administered Current Inpatient Medications Acetaminophen (Acetaminophen 325 Mg Tab) 650 mg PO Q4H PRN PRN Reason: Moderate Pain Stop: 11/23/22 18:33 Last Admin: 10/28/22 19:51 Dose: 650 mg Albuterol (Albut/Ipratrop 3mg/0.5mg Neb 3 Ml Vial) 3 ml NEB Q4R PRN; Protocol PRN Reason: SOB/wheezing Stop: 11/23/22 18:59 Last Admin: 10/26/22 18:57 Dose: 3 ml Aspirin (Aspirin 81 Mg Ectab) 81 mg PO QAM [facility] Stop: 11/24/22 08:59 Last Admin: 10/29/22 08:49 Dose: 81 mg Dextrose (Dextrose 50% 50 Ml Syringe) 25 - 50 ml IV UD PRN; Protocol PRN Reason: Hypoglycemia Protocol Stop: 11/23/22 18:33 Ezetimibe (Ezetimibe 10 Mg Tablet) 10 mg PO DAILY [facility] Stop: 11/24/22 08:59 Last Admin: 10/29/22 08:50 Dose: 10 mg Enoxaparin Sodium (Enoxaparin Inj 40 Mg/0.4 Ml Syr) 40 mg SQ QAM [facility] Stop: 11/24/22 08:59 Last Admin: 10/29/22 08:49 Dose: Not Given Fluticasone Propionate (Fluticasone Propionate Na Spr 16 Gm Btl) 2 sprays NA DAILY PRN PRN Reason: Congestion Stop: 11/23/22 18:33 Fluticasone/Vilanterol (Fluticasone/Vilanterol 100/25mcg 14 Puffs/Inhaler) 1 puffs INH DAILY [facility] Stop: 11/26/22 08:59 Last Admin: 10/29/22 08:50 Dose: 1 puffs Furosemide (Furosemide 40 Mg Tab) 40 mg PO [id number] [facility] Stop: 11/25/22 17:59 Last Admin: 10/28/22 08:20 Dose: 40 mg Glucagon (Glucagon For Inj 1 Mg Vial) 1 mg SQ UD PRN; Protocol PRN Reason: Hypoglycemia Protocol Stop: 11/23/22 18:33 Glucose (Glucose 40% Gel 15 Gm Tube) 15 - 30 gm PO UD PRN; Protocol PRN Reason: Hypoglycemia Protocol Stop: 11/23/22 18:33 Glucose (Glucose 10 Tab/Tube) 4 - 8 tab PO UD PRN; Protocol PRN Reason: Hypoglycemia Treatment Stop: 11/23/22 18:33 Insulin Aspart (Insulin Aspart Per Unit) 0 units SC ACHS [facility] Stop: 11/25/22 20:59 Last Admin: 10/29/22 08:46 Dose: 11 units Insulin Glargine (Lantus Per Unit Charge) 5 units SQ BID [facility] Stop: 11/23/22 21:14 Last Admin: 10/29/22 08:48 Dose: 5 units Levothyroxine Sodium (Levothyroxine Sodium 150 Mcg Tablet) 150 mcg PO DAILYBB [facility] Stop: 11/24/22 06:29 Last Admin: 10/29/22 06:16 Dose: 150 mcg Lisinopril (Lisinopril 40 Mg Tab) 40 mg PO QAM [facility] Stop: 11/24/22 08:59 Metoprolol Succinate (Metoprolol Succ 25mg Ext Rel Tab) 12.5 mg PO BID [facility] Stop: 11/25/22 20:59 Last Admin: 10/29/22 08:51 Dose: 12.5 mg Miscellaneous (Carbohydrates For Hypoglycemia ) 15 - 30 gm PO UD PRN PRN Reason: Hypoglycemia Protocol Stop: 11/23/22 18:33 Pantoprazole Sodium (Pantoprazole 40 Mg Tab) 40 mg PO QAM [facility] Stop: 11/26/22 08:59 Last Admin: 10/29/22 08:52 Dose: 40 mg Prednisone (Prednisone 20 Mg Tab) 20 mg PO DAILY [facility] Stop: 10/30/22 08:59 Last Admin: 10/29/22 08:52 Dose: 20 mg Trolamine Salicylate (Trolamine Salicylate 10% Crm 255 Appln/85 Gm Tube) 1 appln EXT TID [facility] Stop: 11/26/22 14:29 Last Admin: 10/29/22 08:53 Dose: 1 appln Umeclidinium [place] (Umeclidinium [place] 62.5mcg/Blister 7 Puffs/Inhaler) 1 puffs INH DAILY [facility]; Protocol Stop: 11/24/22 08:59 Last Admin: 10/29/22 08:52 Dose: 1 puffs
--- NOTE | 2022-10-29 13:31 | Cardiology Progress Note ---
Date of Service October 29, 2022 Assessment & Plan (1) Acute respiratory failure with hypoxia and hypercarbia: (2) Acute respiratory acidosis: (3) Acute on chronic diastolic CHF (congestive heart failure): Plan Patient is a 67-year-old female who presents with acute hypoxic and hypercarbic respiratory failure with mixed etiology with underlying hypoxic obstructive lung disease superimposed on diastolic heart failure. Clinically improving. No signs of fluid retention on exam this morning with BMP reflecting mild contraction alkalosis superimposed on chronic respiratory issues \\ 10/28/2022 Clinically improved. Received oral furosemide this morning and continues to manifest diuresis. Otherwise on hold until assessment. Suspect will spontaneously diurese as respiratory status and oxygenation has improved Agree with increased ambulation Continue low-dose metoprolol succinate Would not restart lisinopril 10/29/2022 once again slowly improving. Pulmonary status less distressed. Slow diuresis As above would not restart lisinopril Tolerating metoprolol succinate 12.5 mg twice per day would continue and would not resume carvedilol Anticipate diuretic dosing at home furosemide 40 mg/day with potassium chloride 10 mEq/day Admission and Anticipated Discharge Date Admission Date: October 24, 2022 Subjective Patient seen and examined, chart, medications, telemetry reviewed. Patient sitting at bedside Complaints today. No dizziness or lightheadedness no chest pain. Respiratory status continues to improve slowly Physical Exam Constitutional: + obese Eyes: PERRL, conjunctivae normal, anicteric sclerae ENMT: external ear and nose normal, oropharynx normal Neck: + thick neck Respiratory: + audible wheezes (And rhonchi with forced cough) Cardiovascular: RRR, no murmur, no edema Extremities: no edema Gastrointestinal (Abdomen): Percussion/Palpation: abdomen soft (With large panniculus) Musculoskeletal: no cyanosis or clubbing, extremities motor strength 5/5 Results & Data ([place]) Vital Signs (Past 12 Hours) Vital Signs Temp Pulse Pulse Resp BP Pulse Ox O2 Del Method 10/29/22 11:58 36.6 C 67 20 116/67 94 Nasal Cannula 10/29/22 11:00 High Flow Nasal Cannula 10/29/22 11:00 52 L 10/29/22 07:21 36.8 C 61 18 116/60 93 Nasal Cannula 10/29/22 04:12 36.6 C 51 L 20 114/70 94 BiPAP O2 Flow Rate 02/15/23 11:58 3 10/29/22 11:00 3 10/29/22 11:00 10/29/22 07:21 4 10/29/22 04:12
[2022-10-29] MEDS ORDERED: POTASSIUM CHLORIDE CRTAB 20 MEQ TABCR PO ONE (13:35)
[2022-10-29] MEDS: ACETAMINOPHEN 325 MG TAB PO PRN (20:23)
[2022-10-30 02:58] VITALS: TEMP 98.1
[2022-10-30] MEDS: LEVOTHYROXINE SODIUM 150 MCG TABLET PO SCH (05:55)
[2022-10-30 06:56] LABS: BUN Creatinine Ratio 47.6 (10-20); Calcium 9.1 mg/dl (8.5-10.1); Creatinine Clr Calc Pharmacy 99.4 ml/min; Est GFR (African American) 109.1 ml/min; Est GFR (Non-African American) 94.1 ml/min; Magnesium 2.2 mg/dl (1.7-2.4); Phosphorus 3.5 mg/dl (2.5-4.9); Potassium 4.2 mmol/L (3.5-5.1)
--- NOTE | 2022-10-30 07:44 | Hospitalist Progress Note ---
Date of Service October 30, 2022 Assessment & Plan (1) Acute respiratory failure with hypoxia and hypercarbia: (2) Acute heart failure with preserved ejection fraction: (3) Acute respiratory acidosis: (4) COPD with acute exacerbation: Plan: Hypoxia improved. Continued on prednisone 20mg PO daily per pulmonary med. Bronchodilator nebs PRN. Cont Brovana and budesonide inhalers. Completed a course of abx for presumed pneumonia last admission. Repeat CXR with improvement. Pulmonary medicine consulted - pt back on home inhalers Cardiology consulted re: CHF Per cardiology, lisinopril was stopped, as well as carvedilol. Patient is to continue with metoprolol succinate 12.5 mg twice daily. And continue home Lasix 40 mg daily. (5) Hyperkalemia: Plan: acute hyperkalemia treated with Lokelma, this has resolved. (6) Diabetes mellitus, type II: Plan: -A1c of 6.0 recently checked during last hospital stay currently at goal cont insulin for carbohydrate coverage and correction (7) CAD (coronary artery disease): Plan: chronic, stable. Cont medical managment. (8) HLD (hyperlipidemia): Plan: - cont. home meds (9) Obesity (BMI 30.0-34.9): Plan: - BMI of 41.2, diet and exercise encouraged prior to discharge (10) Hypothyroid: Plan: - chronic, stable. Cont levothyroxine per home regimen. DVT ppx: scds, lovenox subq CODE: Full code Dispo: Plan to DC home and follow up w/ PCP Admission and Anticipated Discharge Date Admission Date: October 24, 2022 Subjective 67 yo F presented with acute respiratory failure Feeling much better, sitting up on the edge of the bed, on 3L suppl. O2 Ambulated in room and before ambulated in hallway Denies any chest pain or shortness of breath Denies fever, chills, palpitations, or abd. pain Review of Systems Review of Systems: All systems reviewed & are unremarkable except as noted in Subjective Physical Exam Physical Exam: CONSTITUTIONAL: morbidly obese F generally in NAD, on suppl. O2 EYES: normal conjunctivae, no scleral icterus ENT: external ear and nose normal NECK: supple RESPIRATORY:clear to auscultation bilaterally, normal respiratory effort, on 3L suppl. O2 CARDIOVASCULAR: regular rate and rhythm, S1 and 2 heard without murmurs, no JVD, no peripheral edema CHEST: inspection of chest was normal GASTROINTESTINAL: soft, nontender, ND, no guarding MUSCULOSKELETAL:head is normocephalic and atraumatic,moves extremities SKIN: warm and dry NEUROLOGIC:Awake and alert oriented, speech fluent, no facial asymmetry, moves extremities Results & Data Results & Data ([facility]) Vital Signs (Past 12 Hours) Vital Signs Temp Pulse Pulse Pulse Resp BP Pulse Ox 10/30/22 02:57 36.7 C 54 L 16 118/69 97 10/29/22 22:21 54 L 10/29/22 20:20 10/29/22 23:15 36.6 C 48 L 16 159/82 H 98 10/29/22 20:08 36.6 C 58 L 18 135/82 94 O2 Del Method O2 Flow Rate 10/30/22 02:57 BiPAP 10/29/22 22:21 10/29/22 20:20 Nasal Cannula 3 10/29/22 23:15 Nasal Cannula 3 10/29/22 20:08 Nasal Cannula 3.0 Laboratory Results 10/30/22 10/30/22 10/29/22 Range/Units 07:12 06:15 20:24 Sodium 138 (136-145) mmol/L Potassium 4.2 (3.5-5.1) mmol/L Chloride 100 (98-107) mmol/L Carbon Dioxide 36 H (21-32) mmol/L Anion Gap 2 L (3-11) BUN 30 H (6-23) mg/dl Creatinine 0.63 (0.6-1.2) mg/dl Est Cr Clr Drug Dosing 99.4 ml/min Est GFR ( Amer) 109.1 ml/min Est GFR (Non-Af Amer) 94.1 ml/min BUN/Creatinine Ratio 47.6 H (10-20) Glucose 98 (70-99(Fasting)) mg/dl POC Glucose 99 196 H (70-99) mg/dl Calcium 9.1 (8.5-10.1) mg/dl Phosphorus 3.5 (2.5-4.9) mg/dl Magnesium 2.2 (1.7-2.4) mg/dl 10/29/22 10/29/22 Range/Units 16:30 11:25 Sodium (136-145) mmol/L Potassium (3.5-5.1) mmol/L Chloride (98-107) mmol/L Carbon Dioxide (21-32) mmol/L Anion Gap (3-11) BUN (6-23) mg/dl Creatinine (0.6-1.2) mg/dl Est Cr Clr Drug Dosing ml/min Est GFR ( Amer) ml/min Est GFR (Non-Af Amer) ml/min BUN/Creatinine Ratio (10-20) Glucose (70-99(Fasting)) mg/dl POC Glucose 124 H 120 H (70-99) mg/dl Calcium (8.5-10.1) mg/dl Phosphorus (2.5-4.9) mg/dl Magnesium (1.7-2.4) mg/dl Medications Administered Current Inpatient Medications Acetaminophen (Acetaminophen 325 Mg Tab) 650 mg PO Q4H PRN PRN Reason: Moderate Pain Stop: 11/23/22 18:33 Last Admin: 10/29/22 20:23 Dose: 650 mg Albuterol (Albut/Ipratrop 3mg/0.5mg Neb 3 Ml Vial) 3 ml NEB Q4R PRN; Protocol PRN Reason: SOB/wheezing Stop: 11/23/22 18:59 Last Admin: 10/26/22 18:57 Dose: 3 ml Aspirin (Aspirin 81 Mg Ectab) 81 mg PO QAM [facility] Stop: 11/24/22 08:59 Last Admin: 10/29/22 08:49 Dose: 81 mg Dextrose (Dextrose 50% 50 Ml Syringe) 25 - 50 ml IV UD PRN; Protocol PRN Reason: Hypoglycemia Protocol Stop: 11/23/22 18:33 Ezetimibe (Ezetimibe 10 Mg Tablet) 10 mg PO DAILY [facility] Stop: 11/24/22 08:59 Last Admin: 10/29/22 08:50 Dose: 10 mg Enoxaparin Sodium (Enoxaparin Inj 40 Mg/0.4 Ml Syr) 40 mg SQ QAM [facility] Stop: 11/24/22 08:59 Last Admin: 10/29/22 08:49 Dose: Not Given Fluticasone Propionate (Fluticasone Propionate Na Spr 16 Gm Btl) 2 sprays NA DAILY PRN PRN Reason: Congestion Stop: 11/23/22 18:33 Fluticasone/Vilanterol (Fluticasone/Vilanterol 100/25mcg 14 Puffs/Inhaler) 1 puffs INH DAILY [facility] Stop: 11/26/22 08:59 Last Admin: 10/29/22 08:50 Dose: 1 puffs Furosemide (Furosemide 40 Mg Tab) 40 mg PO QAM [facility] Stop: 11/29/22 08:59 Glucagon (Glucagon For Inj 1 Mg Vial) 1 mg SQ UD PRN; Protocol PRN Reason: Hypoglycemia Protocol Stop: 11/23/22 18:33 Glucose (Glucose 40% Gel 15 Gm Tube) 15 - 30 gm PO UD PRN; Protocol PRN Reason: Hypoglycemia Protocol Stop: 11/23/22 18:33 Glucose (Glucose 10 Tab/Tube) 4 - 8 tab PO UD PRN; Protocol PRN Reason: Hypoglycemia Treatment Stop: 11/23/22 18:33 Insulin Aspart (Insulin Aspart Per Unit) 0 units SC ACHS [facility] Stop: 11/25/22 20:59 Last Admin: 10/29/22 20:35 Dose: 4 units Insulin Glargine (Lantus Per Unit Charge) 5 units SQ BID [facility] Stop: 11/23/22 21:14 Last Admin: 10/29/22 20:35 Dose: 5 units Levothyroxine Sodium (Levothyroxine Sodium 150 Mcg Tablet) 150 mcg PO DAILYBB [facility] Stop: 11/24/22 06:29 Last Admin: 10/30/22 05:55 Dose: 150 mcg Lisinopril (Lisinopril 40 Mg Tab) 40 mg PO QAM [facility] Stop: 11/24/22 08:59 Metoprolol Succinate (Metoprolol Succ 25mg Ext Rel Tab) 12.5 mg PO BID [facility] Stop: 11/25/22 20:59 Last Admin: 10/29/22 20:23 Dose: 12.5 mg Miscellaneous (Carbohydrates For Hypoglycemia ) 15 - 30 gm PO UD PRN PRN Reason: Hypoglycemia Protocol Stop: 11/23/22 18:33 Pantoprazole Sodium (Pantoprazole 40 Mg Tab) 40 mg PO QAM [facility] Stop: 11/26/22 08:59 Last Admin: 10/29/22 08:52 Dose: 40 mg Prednisone (Prednisone 20 Mg Tab) 20 mg PO DAILY [facility] Stop: 10/30/22 08:59 Last Admin: 10/29/22 08:52 Dose: 20 mg Trolamine Salicylate (Trolamine Salicylate 10% Crm 255 Appln/85 Gm Tube) 1 appln EXT TID [facility] Stop: 11/26/22 14:29 Last Admin: 10/29/22 20:24 Dose: 1 appln Umeclidinium [place] (Umeclidinium [place] 62.5mcg/Blister 7 Puffs/Inhaler) 1 puffs INH DAILY [facility]; Protocol Stop: 11/24/22 08:59 Last Admin: 10/29/22 08:52 Dose: 1 puffs
[2022-10-30] MEDS: METOPROLOL SUCC 25MG EXT REL TAB PO SCH (08:27)
[2022-10-30] MEDS: EZETIMIBE 10 MG TABLET PO SCH (08:28)
[2022-10-30] MEDS: ASPIRIN 81 MG ECTAB PO SCH (08:28)
[2022-10-30] MEDS: ENOXAPARIN INJ 40 MG/0.4 ML SYR SQ SCH (08:29)
[2022-10-30] MEDS: PANTOprazole 40 MG TAB PO SCH (08:29)
[2022-10-30] MEDS: FLUTICASONE/VILANTEROL 100/25MCG 14 PUFFS/INHALER INH SCH (08:30)
[2022-10-30] MEDS: LANTUS PER UNIT CHARGE SQ SCH (08:31)
[2022-10-30] MEDS: UMECLIDINIUM BROMIDE 62.5MCG/BLISTER 7 PUFFS/INHALER INH SCH (08:31)
[2022-10-30] MEDS: TROLAMINE SALICYLATE 10% CRM 255 APPLN/85 GM TUBE EXT SCH ×2 (08:31→13:55)
[2022-10-30] MEDS: INSULIN ASPART PER UNIT SC SCH ×3 (08:32→17:21)
[2022-10-30] MEDS ORDERED: FUROSEMIDE 40 MG TAB PO SCH (09:00)
--- NOTE | 2022-10-30 11:51 | Discharge Summary ---
Date of Service October 30, 2022 Admission HPI Per Admitting Provider This is a 67-year-old female with PMHx of acute on chronic respiratory failure, chronic diastolic CHF, COPD, CAD, HTN, hypothyroidism, BHAVIK on CPAP, DM type II who was recently admitted here at [facility] 10/18 to 10/21 for acute on chronic respiratory failure where she was treated with IV antibiotics for suspected underlying pneumonia, and sent home on a course of Ceftin and Doxy p.o. to complete a 7-day course which would have completed on 10/25/22. Today the patient was called a francisco j barclay as she arrived into the parking lot and was found to be in acute distress and short of breath. She was driving here to the hospital with her 3 small grandchildren to visit a new baby that was born yesterday. The oldest grandchild called their father, who then alerted the hospital. They waved down staff member to get her into the ER. She was hypoxic in the 70s upon presentation to the ER and was found to be on 4 L portable concentrator in her car. She has been placed on BiPAP in the ER. Initially her ABG showed that her pH was 7.0, PCO2 => 115, O2 172, bicarb 33. BNP is elevated to 291, troponin is slightly elevated 18.8, glucose is 228. Her BP is soft at 95/54. At present she appears comfortable on bipap and is able to recall events and talk to me in full sentences. She denies acute distress currently. Her daughter, Ghazala and three grandchildren are present with her at bedside. Admission Exam Per Admitting Provider General: awake, alert, no apparent distress, morbidly obese with BMI of 41.2 Head: Normocephalic, atraumatic ENT: PERRL, EOMI, no pharyngeal exudate, mucous membranes moist Chest: On bipap, diminished breath sounds throughout, faint expiratory wheeze heard in the posterior GRACIELA, no crackles or rales Cardiac: Regular rate and rhythm, + soft systolic murmur, no JVD, normal peripheral pulses, good capillary refill Abdominal: NABS x 4 quadrants, soft, nondistended, nontender to palpation, no rebound or guarding Extremities: Normal inspection,1+ peripheral pitting edema L>R, no erythema, calfs nontender to palpation Psych: Normal mood and affect Neuro: AAO x 3, strength intact bilaterally and rated 5/5, no motor deficits, speech is clear, no peripheral sensory deficits Principal Diagnosis Acute resp. failure with hypoxia and hypercarbia Acute on chronic CHF Discharge Exam CONSTITUTIONAL: morbidly obese F generally in NAD, on suppl. O2 EYES: normal conjunctivae, no scleral icterus ENT: external ear and nose normal NECK: supple RESPIRATORY:clear to auscultation bilaterally, normal respiratory effort, on 3L suppl. O2 CARDIOVASCULAR: regular rate and rhythm, S1 and 2 heard without murmurs, no JVD, no peripheral edema CHEST: inspection of chest was normal GASTROINTESTINAL: soft, nontender, ND, no guarding MUSCULOSKELETAL:head is normocephalic and atraumatic,moves extremities SKIN: warm and dry NEUROLOGIC:Awake and alert oriented, speech fluent, no facial asymmetry, moves extremities Discharge Data Allergies Allergy/AdvReac Type Severity Reaction Status Date / Time tetracycline AdvReac Mild HEADACHE Verified 10/24/22 16:27 Consultations 10/24/22 15:34 ED Decision to Admit Stat 10/24/22 19:40 Consult Cardiology Routine 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 Continued on prednisone 20mg PO daily per pulmonary med. Bronchodilator nebs PRN. Cont Brovana and budesonide inhalers. Completed a course of abx for presumed pneumonia last admission. Repeat CXR with improvement. Pulmonary medicine consulted - pt back on home inhalers Cardiology consulted re: CHF Per cardiology, lisinopril was stopped, as well as carvedilol. Patient is to continue with metoprolol succinate 12.5 mg twice daily. And continue home Lasix 40 mg daily. (5) Hyperkalemia: acute hyperkalemia treated with Lokelma, this has resolved. (6) Diabetes mellitus, type II: -A1c of 6.0 recently checked during last hospital stay currently at goal cont insulin for carbohydrate coverage and correction (7) CAD (coronary artery disease): chronic, stable. Cont medical managment. (8) HLD (hyperlipidemia): - cont. home meds (9) Obesity (BMI 30.0-34.9): - BMI of 41.2, diet and exercise encouraged prior to discharge (10) Hypothyroid: - chronic, stable. Cont levothyroxine per home regimen. Total Time Total Time Spent Total Time Spent (In Minutes): 40 Discharge Plan Discharge Items Patient Disposition: Home - Self-Care Reason For Visit: ACUTE RESPIRATORY FAILURE Discharge Diagnosis: Acute resp. failure with hypoxia and hypercarbia Acute on chronic CHF Activity: Per Instructions section Non-emergency contact: Primary Care Provider and Jitney Driver Call non-emergency contact if: you have any medication questions and your symptoms worsen Follow-up/Referrals: Bipin Ramos MD [Primary Care Provider] - (Date & Time 11/06/2022 11:20 AM Provider Tiffani Mason MD Department [facility] ) Diet: Heart Healthy Add Attending Provider Instructions: Follow-up with your primary care doctor, the appointment was scheduled for you for November 06. Stop taking lisinopril and carvedilol. Take metoprolol succinate 12.5 mg twice a day. Continue taking furosemide 40 mg daily. Take potassium supplement as prescribed. Addtl Manager Contract Provider Instructions: Call your Primary Care doctor if any of the following symptoms or problems start or get worse: * Shortness of breath or difficulty breathing * Wake up at night short of breath * Chest pain * Cough * Swelling of your hands, feet, or legs * More fatigued or tired with your normal activity * Palpitations - sudden fast heart beats WEIGHT * Weigh yourself every morning after using the bathroom. * Use the same scale. * Wear the same amount of clothing. * Write your weight down on a chart. * Call your Primary Care doctor if you gain more than 2-3 pounds in 1-2 days. MEDICATIONS * Use this discharge instruction sheet for medication instructions. * Take your medications at the time your doctor ordered. * Do not skip a dose of your medicines. * If you miss a dose of medicine, take it as soon as possible, but DO NOT DOUBLE A DOSE. * Read your medicine information when you get home. * Know all of the side effects of your medicine. If in doubt, ask your pharmacist * Call your Primary Care doctor's office if you have any side effects. * Be sure all of your doctors know what medicine and herbs you take (including cold, flu, and herbal medicine). Take the following with you to your follow-up doctor appointments: * Weight Chart * Medication List * List of questions Do not drink excessive alcohol, beer or wine. Pending Studies at Discharge: No Stand-Alone Forms: My [facility] Mtime, Smoking Cessation Medications and DC Order Prescriptions: New metoprolol succinate 25 mg Tablet Extended Release 24 Hr 12.5 mg PO BID 30 Days Qty: 30 0RF potassium chloride 10 mEq tablet extended release 10 meq PO DAILY Qty: 30 0RF Continued fluticasone propionate [Flonase Allergy Relief] 50 mcg/actuation sp ray,suspension 2 spray intranasal DAILY PRN (Reason: Congestion) Rx Instructions: administer into each nostril albuterol sulfate [Ventolin HFA] 90 mcg/actuation HFA aerosol inhaler 2 puff inhalation Q4 PRN (Reason: Wheezing) aspirin 81 mg Tablet,Delayed Release (Dr/Ec) 81 mg PO QAM furosemide [Lasix] 40 mg tablet 40 mg PO QAM Qty: 30 0RF metformin 500 mg tablet 500 mg PO BIDM amlodipine 2.5 mg tablet 2.5 mg PO DAILY ezetimibe 10 mg tablet 10 mg PO DAILY Black Elderberry 1 tab PO QAM levothyroxine 150 mcg tablet 150 mcg PO QAM Spiriva with HandiHaler 18 mcg capsule, w/inhalation device 1 cap inhalation QAM Rx Instructions: puncture 1 cap using device; one dose = 2 inhalations budesonide-formoterol [Symbicort] 80-4.5 mcg/actuation HFA aerosol inhaler 2 inh inhalation [facility] turmeric 400 mg Capsule 400 mg PO DAILY Discontinued carvedilol 3.125 mg tablet 3.125 mg PO BID lisinopril 40 mg tablet 40 mg PO QAM doxycycline hyclate 100 mg Capsule 100 mg PO BID 4 Days Qty: 8 0RF cefuroxime axetil 500 mg Tablet 500 mg PO BID 4 Days Qty: 8 0RF Discharge Orders: Discharge Order (Routine); Ordered 10/30/22 Ordered By: Jluis Ellis Admission Data Admit Date/Time: 10/24/22 16:10 Attending Provider: Jluis Ellis Admit Provider: Sheri Larson Primary Care Provider: Bipin Ramos Other Providers: Sheri Larson ; Mike Recio ; Vincenzo Sosa ; Frank El
[2022-10-30 16:09] VITALS: BP 127/74; PULSE 71; O2SAT 92
== END 2022-10-30 18:10 | disposition home or self-care (01) | DRG 291 ==
LOC: ED 12:38 → SUATTDRO 16:10 → 4W 16:10 → 1E 10-25 07:34 → 2E 10-26 18:47

== ENCOUNTER 2023-01-03 10:56 | Inpatient (IN) ==
[2023-01-03] MEDS ORDERED: ALBUT/IPRATROP 3MG/0.5MG NEB 3 ML VIAL NEB STA (11:26)
--- NOTE | 2023-01-03 11:32 | Emergency Department Note ---
History of Present Illness General Chief complaint: Shortness of Breath/Dyspnea Stated complaint: SOB Time Seen by Provider: 01/03/23 11:18 Source: patient, RN notes reviewed and old records reviewed Mode of arrival: ambulatory Limitations: no limitations History of Present Illness This patient 67-year-old female comes in with increasing shortness of breath. She has been short of breath for about a week but is gotten worse over the last couple days she wears 2 and half liters nasal cannula at home and bumped it to 3. She said her O2 sat was running low at 89 to 90%. She has an occasional dry cough no fever. No chest pain no lower extremity pain or swelling. She has a history of CHF but has had no weight gain. She has a history of COPD and does use an inhaler she does not have a neb. She has a history of lung cancer that apparently has spread to her bones and liver. She said that she stopped taking aspirin 2 days ago because she supposed have a biopsy this week. No abdominal pain. She is not currently receiving any treatment for her cancer but has had radiation in the past no current chemo. No trauma or injury. Home Medications Medication Instructions Recorded Confirmed Type aspirin 81 mg tablet,delayed 81 mg PO QAM 01/13/19 01/03/23 History release furosemide 40 mg tablet (Lasix) 40 mg PO QAM #30 tabs 01/16/19 01/03/23 Rx Black Elderberry 1 tab PO QAM 03/18/21 01/03/23 History amlodipine 2.5 mg tablet 2.5 mg PO DAILY 03/18/21 01/03/23 History ezetimibe 10 mg tablet 10 mg PO DAILY 03/18/21 01/03/23 History metformin 500 mg tablet 500 mg PO BIDM 03/18/21 01/03/23 History albuterol sulfate 90 mcg/actuation 2 puff inhalation Q4 PRN Wheezing 03/19/22 01/03/23 History aerosol inhaler (Ventolin HFA) levothyroxine 150 mcg tablet 150 mcg PO QAM 10/24/22 01/03/23 History turmeric 400 mg capsule 400 mg PO DAILY 10/24/22 01/03/23 History potassium chloride 10 mEq 10 meq PO DAILY #30 tabs 10/30/22 01/03/23 Rx tablet,extended release metoprolol succinate 25 mg 12.5 mg PO BID 12/02/22 01/03/23 History tablet,extended release 24 hr fluticasone fur. 100 mcg-umeclid 1 inh inhalation DAILY 01/03/23 01/03/23 History 62.5 mcg-vilant 25 mcg inhalat.powder (Trelegy Ellipta) pravastatin 20 mg tablet 20 mg PO HS 01/03/23 01/03/23 History Allergies Allergy/AdvReac Type Severity Reaction Status Date / Time tetracycline AdvReac Mild HEADACHE Verified 10/24/22 16:27 Past Med/Surg History Medical History Alcohol use CAD (coronary artery disease) NSTEMI 2008 - moderate nonobstructive disease, no stenting Carotid stenosis Chronic diastolic (congestive) heart failure Chronic respiratory failure with hypoxia Constipation COPD, group D, by GOLD 2017 classification Diabetes mellitus, type II HLD (hyperlipidemia) HTN (hypertension) Hypothyroid Metastatic lung cancer (metastasis from lung to other site) (12/11/22) Obesity (BMI 30.0-34.9) BHAVIK on CPAP Primary cancer of right lower lobe of lung (01/31/22) s/p radiation Surgical History S/P cholecystectomy Family History Mother , age 69 Heart disease Rheumatoid arthritis Osteoarthritis Father , age 69 Myocardial infarction Asthma COPD (chronic obstructive pulmonary disease) Sister , age 29 Lung disease Other Diabetes Social History Smoking Status: Never smoker Tobacco Type: Cigarettes Age Started Using Tobacco: 18; Age Quit Using Tobacco: 60; packs per day: 2; Second Hand Exposure: No; Hx Alcohol Use: Yes Alcohol type: beer Alcohol type Comment: 3-5 coors light daily Alcohol Intake Frequency: 4 or More x per/Week Hx Substance Use: No Preferred Language: Stateless Communication Ability: Effective Rag Inspector Required: No Beliefs That Will Affect Care: None marital status: / Current Living Situation: Alone current occupational status: retired and disabled 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 [employer] How many Children do You have: 3 Feels Safe at Home: Yes Safety Concerns: Feels Safe At This Time caffeine: Yes (Diet pepsi - 4 cans/day) Assistive Devices: CPAP and Oxygen - Continuous Review of Systems A total of 10 systems reviewed and were otherwise negative Physical Exam Vital Signs Vital Signs - 24 hr 01/03/23 11:05 01/03/23 11:35 01/03/23 11:36 Temperature 36.5 C Temperature Source Temporal Artery Scan Pulse Rate 82 77 Pulse Rate from SpO2 Sensor Respiratory Rate 24 Respiratory Effort / Characteristics Spontaneous Short of Breath Labored Short of Breath Respiratory Depth Normal Normal Respiratory Pattern Rapid/Shallow Blood Pressure 167/89 H Blood Pressure Mean 115 Pulse Oximetry 87 L Oxygen Delivery Method Nasal Cannula Nasal Cannula Oxygen Flow Rate 4 Sepsis New/Unexplained Change in Mental Status N/A Sepsis Action Taken by Nursing No Action Required 01/03/23 11:36 01/03/23 11:28 01/03/23 11:30 Temperature Temperature Source Pulse Rate 80 Pulse Rate from SpO2 Sensor 79 Respiratory Rate 23 Respiratory Effort / Characteristics Respiratory Depth Respiratory Pattern Blood Pressure 135/86 Blood Pressure Mean 102 Pulse Oximetry 88 L Oxygen Delivery Method Nasal Cannula Oxygen Flow Rate Sepsis New/Unexplained Change in Mental Status Sepsis Action Taken by Nursing 01/03/23 11:30 01/03/23 11:40 01/03/23 11:50 Temperature Temperature Source Pulse Rate 77 76 73 Pulse Rate from SpO2 Sensor 75 72 Respiratory Rate 26 H 20 15 Respiratory Effort / Characteristics Respiratory Depth Respiratory Pattern Blood Pressure Blood Pressure Mean Pulse Oximetry 89 L 93 Oxygen Delivery Method Oxygen Flow Rate Sepsis New/Unexplained Change in Mental Status Sepsis Action Taken by Nursing 01/03/23 12:00 01/03/23 12:00 01/03/23 12:10 Temperature Temperature Source Pulse Rate 73 75 Pulse Rate from SpO2 Sensor 73 75 Respiratory Rate 21 18 Respiratory Effort / Characteristics Respiratory Depth Respiratory Pattern Blood Pressure 149/83 H Blood Pressure Mean 105 Pulse Oximetry 86 L 88 L Oxygen Delivery Method Oxygen Flow Rate Sepsis New/Unexplained Change in Mental Status Sepsis Action Taken by Nursing 01/03/23 12:20 01/03/23 12:30 01/03/23 12:30 Temperature Temperature Source Pulse Rate 78 82 Pulse Rate from SpO2 Sensor 78 84 Respiratory Rate 23 21 Respiratory Effort / Characteristics Respiratory Depth Respiratory Pattern Blood Pressure 145/107 H Blood Pressure Mean 119 Pulse Oximetry 88 L 84 L Oxygen Delivery Method Oxygen Flow Rate Sepsis New/Unexplained Change in Mental Status Sepsis Action Taken by Nursing 01/03/23 12:40 01/03/23 12:50 01/03/23 13:00 Temperature Temperature Source Pulse Rate 72 71 76 Pulse Rate from SpO2 Sensor 73 71 75 Respiratory Rate 15 13 24 Respiratory Effort / Characteristics Respiratory Depth Respiratory Pattern Blood Pressure Blood Pressure Mean Pulse Oximetry 92 90 86 L Oxygen Delivery Method Oxygen Flow Rate Sepsis New/Unexplained Change in Mental Status Sepsis Action Taken by Nursing 01/03/23 13:01 01/03/23 13:01 Temperature Temperature Source Pulse Rate 77 Pulse Rate from SpO2 Sensor 78 Respiratory Rate 22 Respiratory Effort / Characteristics Respiratory Depth Respiratory Pattern Blood Pressure 179/96 H Blood Pressure Mean 123 Pulse Oximetry 90 Oxygen Delivery Method Oxygen Flow Rate Sepsis New/Unexplained Change in Mental Status Sepsis Action Taken by Nursing General: Well developed well nourished middle-age female who is breathing comfortably on supplemental nasal cannula and appears in no acute distress, speaking full sentences with normal speech HEENT: Normal cephalic atraumatic. Pupils are equal round and reactive to light. Extraocular movements are intact. Oropharynx is pink with moist mucous membranes. No swelling of the mouth lips or tongue. Neck: Supple with a midline trachea. No meningeal signs or stiffness, no JVD or bruits. No Stridor. Chest: Clear to auscultation bilaterally with some rhonchi occasionally.. No increased work of breathing. Breath sounds seem diminished in the right base to midlung compared to the left Heart: Regular rate and rhythm without murmurs or gallops. Abdomen: Soft nontender, nondistended without rebound guarding or rigidity. Extremities: No cyanosis clubbing or edema. No calf tenderness or assymetry Spine/Back. Non tender to palpation. No CVA tenderness Skin: Good turgor without rashes. Neurologic exam: Cranial nerves two through 12 are intact. Motor and sensation are intact and symmetrical throughout. Course Administered Medications Enoxaparin Sodium (Enoxaparin Inj 40 Mg/0.4 Ml Syr) 40 mg SQ Q12H [facility] Stop: 02/02/23 15:59 Last Admin: 01/03/23 16:51 Dose: Not Given Documented By: SHIRLEY Insulin Aspart (Insulin Aspart Per Unit Charge) 0 units SC ACHS NABEEL Stop: 02/02/23 16:29 Last Admin: 01/03/23 16:54 Dose: 4 units Documented By: SHIRLEY Co-signed By: MPC Discontinued Medications Albuterol (Albut/Ipratrop 3mg/0.5mg Neb 3 Ml Vial) 3 ml NEB NOW STA; Protocol Stop: 01/03/23 11:27 Last Admin: 01/03/23 11:43 Dose: 3 ml Documented By: ELLI Furosemide (Furosemide Inj 20 Mg/2 Ml Vial) 20 mg IV ONE ONE Stop: 01/03/23 12:17 Last Admin: 01/03/23 13:08 Dose: 20 mg Documented By: ELLI Ioversol (Optiray 320 500ml) 114 ml IV ONCE ONE Stop: 01/03/23 14:47 Last Admin: 01/03/23 14:49 Dose: 114 ml Documented By: YOAN Medical Decision Making Differential Diagnosis COPD exacerbation, CHF, pneumothorax, pleural effusion, pulmonary edema, PE, infection, pneumonia, sepsis, COVID, electrolyte or metabolic abnormality, cancer related complication Medical Records Attestation: I reviewed the patient's medical records. Home Medications Current Medication List: was personally reviewed by me Laboratory Data Attestation: I reviewed the patient's lab results. 01/03/23 11:28 01/03/23 11:28 Lab Results 01/03/23 01/03/23 01/03/23 Range/Units 11:28 11:28 11:28 WBC 11.40 H (4.8-10.8) K/ul RBC 3.92 L (4.20-5.40) M/uL Hgb 11.8 L (12.0-16.0) g/dl Hct 37.2 (37.0-47.0) % MCV 94.9 (80.0-100.0) fL MCH 30.1 (25.0-34.0) pg MCHC 31.7 L (32.0-36.0) g/dL RDW Std Deviation 52.2 H (36.4-46.3) fL RDW Coeff of Naa 14.9 H (11.5-14.5) % Plt Count 267 (130-400) K/uL MPV 10.7 (9.4-12.4) fL Immature Gran % (Auto) 1.1 % Neut % (Auto) 81.5 % Lymph % (Auto) 7.7 % Sampson % (Auto) 6.4 % Eos % (Auto) 2.7 % Baso % (Auto) 0.6 % Neut # (Auto) 9.28 H (1.40-6.50) K/uL Lymph # (Auto) 0.88 L (1.2-3.4) K/uL Sampson # (Auto) 0.73 H (0.11-0.59) K/uL Eos # (Auto) 0.31 (0-0.50) K/uL Baso # (Auto) 0.07 (0-0.2) K/uL Immature Gran # (Auto) 0.13 (0.01-0.20) K/uL PT 10.7 (9.0-12.0) Seconds INR 1.0 (0.9-1.1) APTT 28.8 (21.0-31.0) Seconds PTT Ratio 1.0 Sodium 138 (136-145) mmol/L Potassium 4.4 (3.5-5.1) mmol/L Chloride 98 (98-107) mmol/L Carbon Dioxide 30 (21-32) mmol/L Anion Gap 10 (3-11) BUN 11 (6-23) mg/dl Creatinine 0.58 L (0.6-1.2) mg/dl Est Cr Clr Drug Dosing 107.0 ml/min Est GFR ( Amer) 112.1 ml/min Est GFR (Non-Af Amer) 96.7 ml/min BUN/Creatinine Ratio 19.0 (10-20) Glucose 137 H (70-99(Fasting)) mg/dl Calcium 9.4 (8.6-10.3) mg/dl Total Bilirubin 0.4 (0.2-1.0) mg/dl AST 23 (13-39) U/L ALT 32 (7-52) U/L Alkaline Phosphatase 101 (34-104) U/L Troponin I High Sens 7.3 (0-14) pg/ml B-Natriuretic Peptide (0-100) pg/ml Total Protein 7.8 (6.0-8.3) gm/dl Albumin 4.2 (3.4-5.0) gm/dl Globulin 3.6 (2.5-4.0) gm/dl Albumin/Globulin Ratio 1.2 (0.9-2) Lipase 75 (11-82) U/L Adenovirus (PCR) (NotDetected) B. pertussis DNA (PCR) (NotDetected) B.parapertussis DNA PCR (NotDetected) C. pneumoniae DNA (PCR) (NotDetected) Coronavirus OC43 (PCR) (NotDetected) Coronavirus HKU1 (PCR) (NotDetected) Coronavirus 229E (PCR) (NotDetected) SARS-CoV-2 (PCR) (Negative) Coronavirus NL63 (PCR) (NotDetected) Human Metapneumovir PCR (NotDetected) Influenza Type A (PCR) (NotDetected) Influenza Type B (PCR) (NotDetected) M. pneumoniae (PCR) (NotDetected) Parainfluenza 1 (PCR) (NotDetected) Parainfluenza 2 (PCR) (NotDetected) Parainfluenza 3 (PCR) (NotDetected) Parainfluenza 4 (PCR) (NotDetected) RSV (PCR) (NotDetected) Entero/Rhino (PCR) (NotDetected) 01/03/23 01/03/23 01/03/23 Range/Units 11:28 11:30 11:30 WBC (4.8-10.8) K/ul RBC (4.20-5.40) M/uL Hgb (12.0-16.0) g/dl Hct (37.0-47.0) % MCV (80.0-100.0) fL MCH (25.0-34.0) pg MCHC (32.0-36.0) g/dL RDW Std Deviation (36.4-46.3) fL RDW Coeff of Naa (11.5-14.5) % Plt Count (130-400) K/uL MPV (9.4-12.4) fL Immature Gran % (Auto) % Neut % (Auto) % Lymph % (Auto) % Sampson % (Auto) % Eos % (Auto) % Baso % (Auto) % Neut # (Auto) (1.40-6.50) K/uL Lymph # (Auto) (1.2-3.4) K/uL Sampson # (Auto) (0.11-0.59) K/uL Eos # (Auto) (0-0.50) K/uL Baso # (Auto) (0-0.2) K/uL Immature Gran # (Auto) (0.01-0.20) K/uL PT (9.0-12.0) Seconds INR (0.9-1.1) APTT (21.0-31.0) Seconds PTT Ratio Sodium (136-145) mmol/L Potassium (3.5-5.1) mmol/L Chloride (98-107) mmol/L Carbon Dioxide (21-32) mmol/L Anion Gap (3-11) BUN (6-23) mg/dl Creatinine (0.6-1.2) mg/dl Est Cr Clr Drug Dosing ml/min Est GFR ( Amer) ml/min Est GFR (Non-Af Amer) ml/min BUN/Creatinine Ratio (10-20) Glucose (70-99(Fasting)) mg/dl Calcium (8.6-10.3) mg/dl Total Bilirubin (0.2-1.0) mg/dl AST (13-39) U/L ALT (7-52) U/L Alkaline Phosphatase (34-104) U/L Troponin I High Sens (0-14) pg/ml B-Natriuretic Peptide 104 H (0-100) pg/ml Total Protein (6.0-8.3) gm/dl Albumin (3.4-5.0) gm/dl Globulin (2.5-4.0) gm/dl Albumin/Globulin Ratio (0.9-2) Lipase (11-82) U/L Adenovirus (PCR) Not Detected (NotDetected) B. pertussis DNA (PCR) Not Detected (NotDetected) B.parapertussis DNA PCR Not Detected (NotDetected) C. pneumoniae DNA (PCR) Not Detected (NotDetected) Coronavirus OC43 (PCR) Not Detected (NotDetected) Coronavirus HKU1 (PCR) Not Detected (NotDetected) Coronavirus 229E (PCR) Not Detected (NotDetected) SARS-CoV-2 (PCR) NEGATIVE Not Detected (Negative) Coronavirus NL63 (PCR) Not Detected (NotDetected) Human Metapneumovir PCR Not Detected (NotDetected) Influenza Type A (PCR) Not Detected (NotDetected) Influenza Type B (PCR) Not Detected (NotDetected) M. pneumoniae (PCR) Not Detected (NotDetected) Parainfluenza 1 (PCR) Not Detected (NotDetected) Parainfluenza 2 (PCR) Not Detected (NotDetected) Parainfluenza 3 (PCR) Not Detected (NotDetected) Parainfluenza 4 (PCR) Not Detected (NotDetected) RSV (PCR) Not Detected (NotDetected) Entero/Rhino (PCR) Not Detected (NotDetected) Imaging Data Attestation: I personally reviewed and interpreted this imaging study as follows: My Impression: Chest x-raycardiomegaly with mild pulmonary edema Radiologist's Impression: Chest X-Ray 01/03/23 11:26 XR chest 1V portable HISTORY: 67 years-old Female Chest pain, nonspecific COMPARISON: PET CT 12/11/2022 TECHNIQUE: AP view of the chest FINDINGS: Hilar prominence with cardiomegaly redemonstrated. Prominent vascular congestion with interstitial coarsening and mild bibasilar densities. No pneumothorax. Oste oblastic skeletal metastasis again noted. No acute pathologic fracture is seen. IMPRESSION: 1. Cardiomegaly with mild pulmonary edema. 2. Mild bibasilar opacities favor atelectasis. 3. Osteoblastic skeletal metastasis again noted. ACT 112: Negative or not required by law. The above report was generated using voice recognition software. It may contain grammatical, syntax or spelling errors. Electronically signed by: Jon Lieberman M.D. 01/03/2023 12:00 PM ECG Data Attestation: I personally reviewed and interpreted this ECG as follows: Indication: + SOB/dyspnea Rate (beats per minute): 82 Rhythm: + normal sinus ECG Intervals/blocks: + Normal QRS, + Normal QT and + Normal [place] ECG [place]: + Normal ECG ST segments: + Normal ST segments ECG Findings: no PACs or no PVCs Comparison ECG Date: from (11/03/22) Change: no significant change MDM Narrative This patient comes in as described above. IV access was established and she was placed on a journeyman operator assistant in room B8. She is short of breath her O2 sat is low at 87 she normally wears oxygen but even with that she is low. She appears in no distress. She has multiple potential etiologies for shortness of breath. I did give her a DuoNeb x1 while we are doing the work-up chest x-ray was obtained as well as EKG and multiple blood testing. She was COVID tested. She was reassessed frequently. Her chest x-ray does show CHF and her BNP was elevated at 104. She has no significant electrolyte or metabolic abnormalities. Given her hypoxemia, I do think she needs to be admitted/observed. This may be multifactorial but I think most likely CHF is a dominant component she does have underlying COPD. I have consulted and discussed case with [facility] they saw her in the ER and will admit/observe her for these measures Continuous cardiac monitoring: Orders placed in EMR for continuous cardiac monitoring: Upon my evaluation patient noted to be in normal sinus with a rate of 80 Impression & Plan CHF (congestive heart failure), COPD, group D, by GOLD 2017 classification, SOB (shortness of breath), Hypoxemia, Lab test negative for COVID-19 virus Discharge Plan Visit Data Chief Complaint: Shortness of Breath/Dyspnea Stated Complaint: SOB ED Provider: Carrington Caldwell Discharge Problem: CHF (congestive heart failure), COPD, group D, by GOLD 2017 classification, SOB (shortness of breath), Hypoxemia, Lab test negative for COVID-19 virus Patient Disposition: Admitted As Inpatient Discharge Instructions Interventions: ED Discharge Assessment Last Done: 01/03/23 14:40
[2023-01-03 11:56] LABS: Basophils # (auto) 0.07 K/uL (0-0.2); Basophils % (auto) 0.6 %; Eosinophils # (auto) 0.31 K/uL (0-0.50); Eosinophils % (auto) 2.7 %; Hematocrit (blood only) 37.2 % (37.0-47.0); Hemoglobin 11.8 g/dl (12.0-16.0); Immature Granulocytes # (auto) 0.13 K/uL (0.01-0.20); Immature Granulocytes % (auto) 1.1 %; Lymphocytes # (auto) 0.88 K/uL (1.2-3.4); Lymphocytes % (auto) 7.7 %; Mean Corpuscular Hemoglobin 30.1 pg (25.0-34.0); Mean Corpuscular Hgb Conc 31.7 g/dL (32.0-36.0); Mean Corpuscular Volume 94.9 fL (80.0-100.0); Mean Platelet Volume 10.7 fL (9.4-12.4); Monocytes # (auto) 0.73 K/uL (0.11-0.59); Monocytes % (auto) 6.4 %; Neutrophils # (auto) 9.28 K/uL (1.40-6.50); Neutrophils % (auto) 81.5 %; Platelet Count 267 K/uL (130-400); RDW Coefficient of Variation 14.9 % (11.5-14.5); RDW Standard Deviation 52.2 fL (36.4-46.3); Red Blood Count 3.92 M/uL (4.20-5.40)
--- NOTE | 2023-01-03 12:02 | XRay Report ---
XR chest 1V portable HISTORY: 67 years-old Female Chest pain, nonspecific COMPARISON: PET CT 12/11/2022 TECHNIQUE: AP view of the chest FINDINGS: Hilar prominence with cardiomegaly redemonstrated. Prominent vascular congestion with interstitial co arsening and mild bibasilar densities. No pneumothorax. Osteoblastic skeletal metastasis again noted. No acute pathologic fracture is seen. IMPRESSION: 1. Cardiomegaly with mild pulmonary edema. 2. Mild bibasilar opacities favor atelectasis. 3. Osteoblastic skeletal metastasis again noted. ACT 112: Negative or not required by law. The above report was generated using voice recognition software. It may contain grammatical, syntax o r spelling errors. Electronically signed by: Jon Lieberman M.D. 01/03/2023 12:00 PM
[2023-01-03 12:14] LABS: Albumin Globulin Ratio 1.2 (0.9-2); Albumin Level 4.2 gm/dl (3.4-5.0); Bilirubin,Total 0.4 mg/dl (0.2-1.0); Calcium 9.4 mg/dl (8.6-10.3); Est GFR (African American) 112.1 ml/min; Est GFR (Non-African American) 96.7 ml/min; Globulin 3.6 gm/dl (2.5-4.0); Potassium 4.4 mmol/L (3.5-5.1); Total Protein 7.8 gm/dl (6.0-8.3)
[2023-01-03] MEDS ORDERED: FUROSEMIDE INJ 20 MG/2 ML VIAL IV ONE (12:16)
[2023-01-03 12:20] LABS: Troponin I High Sensitivity 7.3 pg/ml (0-14)
[2023-01-03 12:23] LABS: Partial Thromboplastin Time 28.8 Seconds (21.0-31.0); Prothrombin Time 10.7 Seconds (9.0-12.0)
--- NOTE | 2023-01-03 13:16 | Electrocardiogram Report ---
Test Reason : Blood Pressure : / mmHG Vent. Rate : 082 BPM Atrial Rate : 082 BPM P-R Int : 130 ms QRS Dur : 086 ms QT Int : 376 ms P-R-T Axes : 050 048 027 degrees QTc Int : 439 ms Normal sinus rhythm Possible Left atrial enlargement Borderline ECG When compared with ECG of 24-OCT-2022 12:48, No significant change was found Confirmed by Dillon Ames ([id number]) on 01/03/2023 1:16:14 PM Referred By: Confirmed By:Dillon Ames
--- NOTE | 2023-01-03 13:19 | History & Physical Report ---
Date of Service January 03, 2023 Assessment & Plan (1) Acute on chronic respiratory failure with hypoxia: (2) Bilateral pleural effusion: (3) Metastatic lung cancer (metastasis from lung to other site): (4) COPD, group D, by GOLD 2017 classification: (5) Chronic diastolic (congestive) heart failure: Plan: Admit to [facility] with telemetry Patient presenting from home with reports of worsening shortness of breath and increased O2 requirement (typically on 2.5L continuous) In the ED, patient requiring 4L O2 via NC to maintain saturation > 90% CXR suggests mild pulmonary edema CTA chest negative for pulmonary embolism, shows small left and moderate right pleural effusions. Etiology of pleural effusions -- ?? acute CHF vs malignant Respiratory viral panel negative, no change in sputum, afebrile --doubt COPD exacerbation or infectious source Echo 11/06-EF 55 to 60%, grade 1 diastolic dysfunction Typically managed on Lasix 40 mg daily. Received Lasix 20 mg IV in ED and took home dose this morning. Will continue with Lasix 40 mg IV daily from tomorrow. Pulmonary consult, Dr. So notified via [place] [facility] Hx lung cancer s/p treatment with recent PET scan showing liver and bone mets. Scheduled for liver biopsy on 01/07/23. (6) CAD (coronary artery disease): Plan: Appears stable, no reports of chest pain ASA on hold due to upcoming liver biopsy Continue beta-mike and statin (7) HTN (hypertension): Plan: Continue metoprolol and amlodipine (8) Diabetes mellitus, type II: Plan: Hgb A1c 6.0 10/2022 Hold metformin and utilize NovoLog per protocol while hospitalized (9) Alcohol use: Plan: Patient reports drinking 3-5 beers/care information associate closely for signs of withdrawal (10) Hypothyroid: Plan: Continue levothyroxine DVT PROPHYLAXIS SQ Lovenox Patient was seen in collaboration with Dr. Moreno. I spent a total of 75 minutes coordinating, documenting, and providing care for this patient excluding time spent in the performance of separately billed services. This included personally reviewing all current laboratories and imaging studies, medication reconciliation, outpatient chart review, and discussion with specialists. History of Present Illness Chief Complaint: Shortness of Breath Primary Care Provider: Bipin Ramos MD 67 year old female with PMH DM type II, COPD, chronic hypoxic respiratory failure on 2.5L O2, hypothyroidism, lung cancer with mets to liver and bone, CAD, carotid stenosis, chronic diastolic CHF, HTN, chronic alochol use, and other problems listed below who presents to the ED for evaluation of shortness of breath. Patient reports symptoms have been ongoing and worsening for about the past 1 week. Patient reports she typically wears 2-1/2 L of oxygen at all t imes however pulse ox was showing oxygen saturations in the low 80s, therefore she increased to 3 L. She reports a chronic dry cough which is unchanged from baseline. No fevers or chills. Was using albuterol rescue inhaler without much improvement. She reports weighing herself on a daily basis and denies weight gain, lower extremity edema, orthopnea. No chest pain. Denies lightheadedness, dizziness, diaphoresis, syncopal events. No abdominal pain, nausea, vomiting, diarrhea. Denies urinary symptoms. In the ED, patient was requiring 4 L of oxygen via nasal cannula to maintain saturations. CXR shows mild pulmonary edema. Patient was given nebulizer treatment and IV Lasix. Allergies Allergy/AdvReac Type Severity Reaction Status Date / Time tetracycline AdvReac Mild HEADACHE Verified 10/24/22 16:27 Home Medications Medication Instructions Recorded Confirmed Type aspirin 81 mg tablet,delayed 81 mg PO QAM 01/13/19 01/03/23 History release furosemide 40 mg tablet (Lasix) 40 mg PO QAM #30 tabs 01/16/19 01/03/23 Rx Black Elderberry 1 tab PO QAM 03/18/21 01/03/23 History amlodipine 2.5 mg tablet 2.5 mg PO DAILY 03/18/21 01/03/23 History ezetimibe 10 mg tablet 10 mg PO DAILY 03/18/21 01/03/23 History metformin 500 mg tablet 500 mg PO BIDM 03/18/21 01/03/23 History albuterol sulfate 90 mcg/actuation 2 puff inhalation Q4 PRN Wheezing 03/19/22 01/03/23 History aerosol inhaler (Ventolin HFA) levothyroxine 150 mcg tablet 150 mcg PO QAM 10/24/22 01/03/23 History turmeric 400 mg capsule 400 mg PO DAILY 10/24/22 01/03/23 History potassium chloride 10 mEq 10 meq PO DAILY #30 tabs 02/16/23 04/22/23 Rx tablet,extended release metoprolol succinate 25 mg 12.5 mg PO BID 12/02/22 01/03/23 History tablet,extended release 24 hr fluticasone fur. 100 mcg-umeclid 1 inh inhalation DAILY 01/03/23 01/03/23 History 62.5 mcg-vilant 25 mcg inhalat.powder (Trelegy Ellipta) pravastatin 20 mg tablet 20 mg PO HS 01/03/23 01/03/23 History Past Med/Surg History Medical History Alcohol use CAD (coronary artery disease) NSTEMI 2008 - moderate nonobstructive disease, no stenting Carotid stenosis Chronic diastolic (congestive) heart failure Chronic respiratory failure with hypoxia Constipation COPD, group D, by GOLD 2017 classification Diabetes mellitus, type II HLD (hyperlipidemia) HTN (hypertension) Hypothyroid Metastatic lung cancer (metastasis from lung to other site) (12/11/22) Obesity (BMI 30.0-34.9) BHAVIK on CPAP Primary cancer of right lower lobe of lung (01/31/22) s/p radiation Surgical History S/P cholecystectomy Family History Mother , age 69 Heart disease Rheumatoid arthritis Osteoarthritis Father , age 69 Myocardial infarction Asthma COPD (chronic obstructive pulmonary disease) Sister , age 29 Lung disease Other Diabetes Social History Smoking Status: Never smoker Tobacco Type: Cigarettes Age Started Using Tobacco: 18; Age Quit Using Tobacco: 60; packs per day: 2; Second Hand Exposure: No; Hx Alcohol Use: Yes Alcohol type: beer Alcohol type Comment: 3-5 coors light daily Alcohol Intake Frequency: 4 or More x per/Week Hx Substance Use: No Preferred Language: Kenyan Communication Ability: Effective Caul Puller Required: No Beliefs That Will Affect Care: None marital status: / Current Living Situation: Alone current occupational status: retired and disabled 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 [employer] How many Children do You have: 3 Feels Safe at Home: Yes Safety Concerns: Feels Safe At This Time caffeine: Yes (Diet pepsi - 4 cans/day) Assistive Devices: CPAP and Oxygen - Continuous Review of Systems Review of Systems: ROS per HPI, all other systems reviewed and negative Physical Exam Constitutional: WD/WN, vitals as above Eyes: PERRL, conjunctivae normal, anicteric sclerae ENMT: external ear and nose normal, oropharynx normal Respiratory: normal respiratory effort; no respiratory distress Auscultation: + diminished lung sounds Cardiovascular: Rate/Rhythm: regular rate and regular rhythm Vessels: normal peripheral pulses Extremities: no edema Gastrointestinal (Abdomen): normal bowel sounds, soft, nontender, no hepatosplenomegaly Musculoskeletal: no cyanosis or clubbing, extremities motor strength 5/5 Skin: no rashes, warm and dry Neurologic: PERRL, EOMI, accommodation nl, no face palsy, no dysarthria Psychiatric: A+Ox3, euthymic affect Results & Data Results & Data Vital Signs (Past 12 Hours) Vital Signs Temp Pulse Resp BP Pulse Ox O2 Del Method O2 Flow Rate 01/03/23 11:36 Nasal Cannula 01/03/23 11:36 Nasal Cannula 01/03/23 11:35 77 01/03/23 11:05 36.5 C 82 24 167/89 H 87 L Nasal Cannula 4 Laboratory Results Short CBC 01/03/23 Range/Units 11:28 WBC 11.40 H (4.8-10.8) K/ul Hgb 11.8 L (12.0-16.0) g/dl Hct 37.2 (37.0-47.0) % Plt Count 267 (130-400) K/uL BMP 01/03/23 11:28 Sodium 138 Potassium 4.4 Chloride 98 Carbon Dioxide 30 BUN 11 Creatinine 0.58 L Glucose 137 H Calcium 9.4 Liver Function 01/03/23 Range/Units 11:28 Total Bilirubin 0.4 (0.2-1.0) mg/dl AST 23 (13-39) U/L ALT 32 (7-52) U/L Alkaline Phosphatase 101 (34-104) U/L Albumin 4.2 (3.4-5.0) gm/dl Diagnostic Findings Chest X-Ray 01/03/23 11:26 XR chest 1V portable HISTORY: 67 years-old Female Chest pain, nonspecific COMPARISON: PET CT 12/11/2022 TECHNIQUE: AP view of the chest FINDINGS: Hilar prominence with cardiomegaly redemonstrated. Prominent vascular congestion with interstitial coarsening and mild bibasilar densities. No pneumothorax. Osteoblastic skeletal metastasis again noted. No acute pathologic fracture is seen. IMPRESSION: 1. Cardiomegaly with mild pulmonary edema. 2. Mild bibasilar opacities favor atelectasis. 3. Osteoblastic skeletal metastasis again noted. ACT 112: Negative or not required by law. The above report was generated using voice recognition software. It may contain grammatical, syntax or spelling errors. Electronically signed by: Jon Lieberman M.D. 01/03/2023 12:00 PM Code Status & VTE Plan Code Status Patient is a full code as per my discussion with her. VTE Prophylaxis Plan VTE Prophylaxis will be ordered: Yes Supervising Physician Co-Signing Physician Notes Pt seen and examined by myself, Naz Moreno MD on the day of service. Care was coordinated with BOAZ Benton. Please refer to her note for additional information. 67yo female with PMHx significant for CHF and metastatic lung cancer presenting with SOB/hypoxia requiring increased oxygen supplementation. Pt states that she uses 2.5L of oxygen at baseline at home, unsure when she last saw pulmonology, states she previously followed with Dr. Gutierres. States she has been receiving cancer treatments over the past year after diagnosis. States she has been trying to watch what she eats, low sodium diet. BNP slightly elevated at 109, procalcitonin wnl. Chest CTA with cardiomegaly with pulm edema, pleural effusions and progressing right basilar consolidation "with obscuration of the known right lower lobe lesion". No pulm emboli noted. Hypoxia likely related to progressing malignant pleural effusions/pulmonary edema. IV Lasix, pulmonary consultation for further evaluation.
[2023-01-03 14:41] LABS: Adenovirus PCR Not Detected (NotDetected); Bordetella parapertussis PCR Not Detected (NotDetected); Bordetella pertussis PCR Not Detected (NotDetected); Chlamydia pneumoniae PCR Not Detected (NotDetected); Coronavirus 229E PCR Not Detected (NotDetected); Coronavirus CoV-2 (COVID19)PCR Not Detected (NotDetected); Coronavirus HKU1 PCR Not Detected (NotDetected); Coronavirus NL63 PCR Not Detected (NotDetected); Coronavirus OC43PCR Not Detected (NotDetected); Human Metapneumovirus PCR Not Detected (NotDetected); Influenza A PCR Not Detected (NotDetected); Influenza B PCR Not Detected (NotDetected); Mycoplasma pneumoniae PCR Not Detected (NotDetected); Parainfluenza Virus 1 PCR Not Detected (NotDetected); Parainfluenza Virus 2 PCR Not Detected (NotDetected); Parainfluenza Virus 3 PCR Not Detected (NotDetected); Parainfluenza Virus 4 PCR Not Detected (NotDetected); Respiratory Syncytial VirusPCR Not Detected (NotDetected); Rhinovirus/Enterovirus PCR Not Detected (NotDetected)
[2023-01-03] MEDS ORDERED: OPTIRAY 320 500ml IV ONE (14:46)
--- NOTE | 2023-01-03 15:05 | CT Scan Report ---
CT angio chest PE protocol CT DOSE: 829.16 mGy.cm HISTORY: 67 years-old Female with PE. Acute chest pain with shortness of breath TECHNIQUE: Multiple CTA images of the chest were obtained after the intravenous administration of 114 ml Optiray. Coronal and sagittal MIPS were obtained from the axial data set and were submitted for review. All measurements were obtained according to NASCET criteria. A dose lowering technique was u tilized adhering to the principles of ALARA. COMPARISON: PET CT 12/11/2022, chest CT 11/27/2022 FINDINGS: CTA: Moderate cardiomegaly with mural fibrofatty changes of the left ventricular apex. Extensive coronary artery calcifications. No pericardial effusion. Atherosclerosis of the thoracic aorta without aneurys m. Mild dilation of the pulmonary arterial tree may represent pulmonary arterial hypertension. No pul monary emboli identified. CT CHEST: No thyroid nodule. Mediastinal and hilar lymphadenopathy appears stable. Trace left and moderate righ t pleural effusions have increased in size from the prior study. Intralobular septal thickening. No p neumothorax. Stable 6 mm subpleural solid nodule of the lingula, image 124. Progressive right basilar consolidation obscures the patient's known right lower lobe lesion. Right basilar air bronchograms. Hepatomegaly with hepatic metastasis again noted, better evaluated on the comparison PET/CT. Unchange d enlarged gastrohepatic lymph nodes. No acute fracture identified. Right scapular metastatic focus. Left proximal humeral osteoblastic lesion is best seen on the front desk receptionist images. No new skeletal lesions a re identified. IMPRESSION: 1. Cardiomegaly with pulmonary edema, small left and moderate right pleural effusions. 2. No pulmonary emboli identified. 3. Progressive right basilar consolidation with obscuration of the known right lower lobe lesion. 4. Pathologic mediastinal and hilar lymphadenopathy appears stable. 5. Hepatic and osseous metastatic disease redemonstrated. No significant changes compared to the 12/11 exam. ACT 112: Negative or not required by law. The above report was generated using voice recognition software. It may contain grammatical, syntax o r spelling errors. Electronically signed by: Jon Lieberman M.D. 01/03/2023 3:03 PM
[2023-01-03] MEDS ORDERED: GLUCAGON FOR INJ 1 MG VIAL SQ PRN (15:23)
[2023-01-03] MEDS ORDERED: GLUCOSE 40% GEL 15 GM TUBE PO PRN (15:23)
[2023-01-03] MEDS ORDERED: GLUCOSE 10 TAB/TUBE PO PRN (15:23)
[2023-01-03] MEDS ORDERED: DEXTROSE 50% 50 ML SYRINGE IV PRN (15:23)
[2023-01-03] MEDS ORDERED: CARBOHYDRATES FOR HYPOGLYCEMIA PO PRN (15:23)
[2023-01-03] MEDS ORDERED: ALBUT/IPRATROP 3MG/0.5MG NEB 3 ML VIAL NEB PRN (15:27)
[2023-01-03] MEDS: ENOXAPARIN INJ 40 MG/0.4 ML SYR SQ SCH (16:51)
[2023-01-03] MEDS: INSULIN ASPART PER UNIT CHARGE SC SCH ×2 (16:54→20:42)
[2023-01-03] MEDS: METOPROLOL SUCC 25MG EXT REL TAB PO SCH (20:51)
[2023-01-03] MEDS: PRAVASTATIN SOD 20 MG TAB PO SCH (20:52)
[2023-01-03] MEDS: ACETAMINOPHEN 325 MG TAB PO PRN (20:54)
[2023-01-04] MEDS: LEVOTHYROXINE SODIUM 150 MCG TABLET PO SCH (06:17)
[2023-01-04] MEDS: ENOXAPARIN INJ 40 MG/0.4 ML SYR SQ SCH ×2 (06:19→17:03)
[2023-01-04] MEDS: FUROSEMIDE 40 MG/4 ML VIAL IV SCH (08:07)
[2023-01-04] MEDS: EZETIMIBE 10 MG TABLET PO SCH (08:07)
[2023-01-04] MEDS: FLUTICASONE FUROATE 100MCG 14 PUFFS/INHALER INH SCH (08:07)
[2023-01-04] MEDS: POTASSIUM CHLORIDE 10 MEQ TABCR PO SCH (08:07)
[2023-01-04] MEDS: METOPROLOL SUCC 25MG EXT REL TAB PO SCH ×2 (08:08→21:47)
[2023-01-04] MEDS: UMECLIDINIUM/VILANTEROL 62.5/25MCG 7 PUFFS/INHALER INH SCH (08:08)
[2023-01-04] MEDS: amLODIPine BESYLATE 5 MG TAB PO SCH (08:08)
[2023-01-04 08:12] LABS: Hematocrit (blood only) 35.9 % (37.0-47.0); Hemoglobin 11.1 g/dl (12.0-16.0); Mean Corpuscular Hemoglobin 30.2 pg (25.0-34.0); Mean Corpuscular Hgb Conc 30.9 g/dL (32.0-36.0); Mean Corpuscular Volume 97.6 fL (80.0-100.0); Mean Platelet Volume 10.5 fL (9.4-12.4); Platelet Count 257 K/uL (130-400); RDW Coefficient of Variation 14.9 % (11.5-14.5); RDW Standard Deviation 53.1 fL (36.4-46.3); Red Blood Count 3.68 M/uL (4.20-5.40); White Blood Count 10.63 K/ul (4.8-10.8)
[2023-01-04] MEDS: INSULIN ASPART PER UNIT CHARGE SC SCH ×4 (08:13→21:40)
[2023-01-04 08:24] LABS: BUN Creatinine Ratio 29.4 (10-20); Calcium 9.4 mg/dl (8.6-10.3); Est GFR (Non-African American) 100.9 ml/min
[2023-01-04] MEDS ORDERED: NON-FORMULARY MEDICATION (Fluticasone-Umeclidin-Vilanter [Trelegy Ellipta] 100-62.5-25 mcg INH SCH (09:00)
[2023-01-04] MEDS ORDERED: FUROSEMIDE 40 MG TAB PO SCH (09:00)
[2023-01-04] MEDS: FOLIC ACID 1 MG TAB PO SCH (09:01)
[2023-01-04] MEDS: THIAMINE HCL 100 MG TAB PO SCH (09:02)
[2023-01-04] MEDS: ACETAMINOPHEN 325 MG TAB PO PRN ×3 (09:03→21:46)
--- NOTE | 2023-01-04 12:11 | Pulmonary Consultation ---
Date of Consultation January 04, 2023 Assessment & Plan (1) CHF (congestive heart failure): Heart failure chronicity: acute on chronic Heart failure type: unspecified Qualified Code(s): I50.9 - Heart failure, unspecified (2) Metastatic lung cancer (metastasis from lung to other site): (3) Bilateral pleural effusion: Plan Chest CTA from 01/03/2023 with evidence of right basilar consolidation, pathological mediastinal and hilar lymphadenopathy, pulmonary edema and bilateral effusions. Agree with diuresis at this time. She appears to be responding favorably. Her oxygen requirements have improved and her dyspnea has improved as well. Recommend oncology and palliative care consultation given likely stage IV metastatic lung cancer. She had a PET scan as noted above on December 11 which revealed FDG avid activity in the liver and mediastinal nodes. There was also findings concerning for osteoblastic metastatic foci. Repeat chest x-ray tomorrow. If persistent dyspnea and increased oxygen demands, can proceed with thoracentesis. History of Present Illness Reason for Consultation: Right pleural effusion Attending Physician: Jose Brito MD History of Present Illness 67-year-old female with a history of COPD with chronic hypercarbic respiratory failure, BHAVIK, hypoxemic respiratory failure on 2-1/2 L of oxygen chronically, metastatic non-small cell lung cancer diagnosed in January 2022, CAD, chronic diastolic heart failure, chronic alcohol abuse and diabetes mellitus type 2 presented to the hospital due to increasing shortness of breath. She was found to have saturations in the 80s and her oxygen was increased to 3 L. She also has had a chronic dry cough. She was started on IV Lasix by the hospitalist service. She does note an improvement in her shortness of breath and they were able to wean her oxygen down from 5 L to 4 L. She notes her cough is improved as well. She denies any fevers, chills or night sweats. Procalcitonin was unremarkable on admission. BNP was elevated to 104. Respiratory viral panel negative on admission. PET/CT 12/11/1929 revealed right lower lobe consolidation demonstrating patchy FDG uptake. FDG avid mediastinal and right hilar lymphadenopathy progressed. Multiple FDG avid hepatic metastatic lesions. Multiple scattered FDG avid osteoblastic metastatic foci. Her outpatient oncologist is Dr. Redmond. Allergies Allergy/AdvReac Type Severity Reaction Status Date / Time tetracycline AdvReac Mild HEADACHE Verified 10/24/22 16:27 Home Medications Medication Instructions Recorded Confirmed Type aspirin 81 mg tablet,delayed 81 mg PO QAM 01/13/19 01/03/23 History release furosemide 40 mg tablet (Lasix) 40 mg PO QAM #30 tabs 01/16/19 01/03/23 Rx Black Elderberry 1 tab PO QAM 03/18/21 01/03/23 History amlodipine 2.5 mg tablet 2.5 mg PO DAILY 03/18/21 01/03/23 History ezetimibe 10 mg tablet 10 mg PO DAILY 03/18/21 01/03/23 History metformin 500 mg tablet 500 mg PO BIDM 03/18/21 01/03/23 History albuterol sulfate 90 mcg/actuation 2 puff inhalation Q4 PRN Wheezing 03/19/22 01/03/23 History aerosol inhaler (Ventolin HFA) levothyroxine 150 mcg tablet 150 mcg PO QAM 10/24/22 01/03/23 History turmeric 400 mg capsule 400 mg PO DAILY 10/24/22 01/03/23 History potassium chloride 10 mEq 10 meq PO DAILY #30 tabs 10/30/22 01/03/23 Rx tablet,extended release metoprolol succinate 25 mg 12.5 mg PO BID 12/02/22 01/03/23 History tablet,extended release 24 hr fluticasone fur. 100 mcg-umeclid 1 inh inhalation DAILY 01/03/23 01/03/23 History 62.5 mcg-vilant 25 mcg inhalat.powder (Trelegy Ellipta) pravastatin 20 mg tablet 20 mg PO HS 01/03/23 01/03/23 History Patient History Medical History Alcohol use CAD (coronary artery disease) NSTEMI 2008 - moderate nonobstructive disease, no stenting Carotid stenosis Chronic diastolic (congestive) heart failure Chronic respiratory failure with hypoxia Constipation COPD, group D, by GOLD 2017 classification Diabetes mellitus, type II HLD (hyperlipidemia) HTN (hypertension) Hypothyroid Metastatic lung cancer (metastasis from lung to other site) (12/11/22) Obesity (BMI 30.0-34.9) BHAVIK on CPAP Primary cancer of right lower lobe of lung (01/31/22) s/p radiation Surgical History S/P cholecystectomy Family History Mother , age 69 Heart disease Rheumatoid arthritis Osteoarthritis Father , age 69 Myocardial infarction Asthma COPD (chronic obstructive pulmonary disease) Sister , age 29 Lung disease Other Diabetes Social History Smoking Status: Never smoker Tobacco Type: Cigarettes Age Started Using Tobacco: 18; Age Quit Using Tobacco: 60; packs per day: 2; Second Hand Exposure: No; Hx Alcohol Use: Yes Alcohol type: beer Alcohol type Comment: 3-5 coors light daily Alcohol Intake Frequency: 4 or More x per/Week Hx Substance Use: No Preferred Language: Beninese Communication Ability: Effective Manager Of Development Required: No Beliefs That Will Affect Care: None marital status: / Current Living Situation: Alone current occupational status: retired and disabled 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 Patient is in no apparent distress. Patient is well-developed. Eyes: Pupils are equal round and reactive to light. Conjunctivae are normal. Anicteric sclera. Ears nose, mouth and throat: Mallampati class 2. Normal posterior oropharynx. Uvula is midline. Neck: Trachea is midline. Visual inspection is normal. Respiratory: Diminished at the bases bilaterally with crackles on the right. Cardiovascular: Regular rate and rhythm. No murmurs. No edema. Gastrointestinal: Normal bowel sounds, soft, nontender and nondistended. No hepatosplenomegaly noted. Musculoskeletal: No cyanosis. Patient is able to move all extremities. Strength is 5 out of 5 in the upper and lower extremities. Skin: No rashes, warm dry and intact. Neurologic: No obvious focal neurological deficits seen. Psychiatric: Alert and oriented x3 with a euthymic affect. Results & Data Results & Data Vital Signs (Past 12 Hours) Vital Signs Temp Pulse Pulse Resp BP Pulse Ox O2 Del Method 01/04/23 08:00 Nasal Cannula 01/04/23 11:19 36.8 C 63 20 110/71 94 Nasal Cannula 01/04/23 08:06 36.6 C 68 20 146/70 H 92 Nasal Cannula 01/04/23 07:09 61 01/04/23 04:00 36.3 C L 76 19 141/74 H 95 Nasal Cannula O2 Flow Rate 01/04/23 08:00 4 01/04/23 11:19 4 01/04/23 08:06 5 01/04/23 07:09 01/04/23 04:00 5 PG Care Time/CCT Total # of Minutes Spent Total Time Spent with Patient: Total time spent is greater than 50% in coordination of care (as documented) at patient's floor/unit and/or counseling patient: Coding Level of Care Code 46687 INT INP/OBS CARE 75MIN Diagnoses CHF (congestive heart failure) I50.9 Heart failure chronicity: acute on chronic Heart failure type: unspecified Metastatic lung cancer (metastasis from lung to other site) C34.90 Bilateral pleural effusion J90
--- NOTE | 2023-01-04 16:23 | Hospitalist Progress Note ---
Date of Service January 04, 2023 Assessment & Plan (1) Acute on chronic respiratory failure with hypoxia: (2) Bilateral pleural effusion: (3) Metastatic lung cancer (metastasis from lung to other site): (4) COPD, group D, by GOLD 2017 classification: (5) Chronic diastolic (congestive) heart failure: Plan: Bilateral pleural effusion Acute on chronic respiratory failure with hypoxia Likely multifactorial-- metastatic lung cancer, COPD, acute on chronic diastolic heart failure Chronic oxygen dependency: On 2.5 L supplemental oxygen chronically --CTA:Cardiomegaly with pulmonary edema, small left and moderate right pleural effusions. No pulmonary emboli identified. Progressive right basilar consolidation with obscuration of the known right lower lobe lesion. Pathologic mediastinal and hilar lymphadenopathy appears stable. Hepatic and osseous metastatic disease redemonstrated. No significant changes compared to the 12/11/2022 exam. --Respiratory viral panel negative, no change in sputum, afebrile --doubt COPD exacerbation or infectious source --Echo 11/06-EF 55 to 60%, grade 1 diastolic dysfunction --Hold p.o. Lasix Continue IV Lasix Monitor I's and O's, daily weight Appreciate pulmonology input May need thoracentesis Plan for repeat chest x-ray tomorrow Metastatic lung cancer Hx lung cancer s/p treatment with recent PET scan showing liver and bone mets. Scheduled for liver biopsy on 01/07/23. Oncology consulted Palliative consulted to help address goals of care (6) CAD (coronary artery disease): Plan: Appears stable, no reports of chest pain ASA on hold due to upcoming liver biopsy Continue beta-mike and statin (7) HTN (hypertension): Plan: Continue metoprolol and amlodipine (8) Diabetes mellitus, type II: Plan: Hgb A1c 6.0 10/2022 Hold metformin and utilize NovoLog per protocol while hospitalized (9) Alcohol use: Plan: Patient reports drinking 3-5 beers/report checker closely for signs of withdrawal Continue thiamine, folic acid (10) Hypothyroid: Plan: Continue levothyroxine DVT Px SQ Lovenox CODE STATUS Full code for now Admission and Anticipated Discharge Date Admission Date: January 03, 2023 Subjective Patient is seen and examined at bedside Less dyspneic today Reports chronic cough No other complaints Saturating well on 4 L supplemental oxygen Review of Systems Review of Systems: All systems reviewed & are unremarkable except as noted in Subjective Physical Exam Physical Exam: Physical Exam: Vitals signs as noted above General Appearance:Morbidly Obese, no apparent distress Head: normocephalic, Atraumatic Eyes: normal inspection, EOMI Neck: supple, Trachea midline Respiratory/Chest: Decreased breath sounds,+basal crackles, No accessory muscle use Cardiovascular: S1, S2, No murmur Abdomen/GI:Soft, Non tender, Bowel sounds present Extremities/Musculoskeletal:normal inspection, Trace edema Neurologic/Psych:AAOX3, grossly no focal neurological deficits Skin: normal color, warm Results & Data Results & Data Vital Signs (Past 12 Hours) Vital Signs Temp Pulse Pulse Resp BP Pulse Ox O2 Del Method 01/04/23 15:27 67 01/04/23 08:00 Nasal Cannula 01/04/23 11:19 36.8 C 63 20 110/71 94 Nasal Cannula 01/04/23 08:06 36.6 C 68 20 146/70 H 92 Nasal Cannula 01/04/23 07:09 61 O2 Flow Rate 01/04/23 15:27 01/04/23 08:00 4 01/04/23 11:19 4 01/04/23 08:06 5 01/04/23 07:09 Laboratory Results Short CBC 01/04/23 Range/Units 07:27 WBC 10.63 (4.8-10.8) K/ul Hgb 11.1 L (12.0-16.0) g/dl Hct 35.9 L (37.0-47.0) % Plt Count 257 (130-400) K/uL BMP 01/04/23 07:27 Sodium 139 Potassium 4.0 Chloride 96 L Carbon Dioxide 35 H BUN 15 Creatinine 0.51 L Glucose 112 H Calcium 9.4
--- NOTE | 2023-01-04 17:53 | Consultation ---
Date of Consultation January 04, 2023 Assessment & Plan (1) Acute on chronic respiratory failure with hypoxia: Would largely defer to pulmonary medicine and hospitalist for optimal treatment. Does seem to be responding to diuresis but do note the progressive consolidation in the right lung. Of note, pathologic adenopathy and other sites of probable metastatic disease are not progressive - would have to consider whether this worsening inflammation of the right lung is purely noninfectious or warrants consideration for antibiotic intervention (2) Metastatic lung cancer (metastasis from lung to other site): Pattern of likely osseous and hepatic metastases is highly concerning for relapse of her previously diagnosed lung adenocarcinoma tough cannot completely exclude another site of origin. She has an already scheduled liver biopsy for January 07 and it would be worthwhile to continue with that so long as she is sufficiently stabilized otherwise. To enable that biopsy to proceed would need to hold her enoxaparin starting 24 hours in advance of the procedure or after tomorrow morning's dose. Would also need to rewrite an order for an inpatient biopsy. Biopsy will be of dual importance: To confirm the histology but also to reassess NGS studies particularly with respect to PDL1 and mutation panel review. Those in turn well help to define noncytotoxic options for systemic treatment. Patient will need MRI scan with and without contrast in time to complete her staging but that is not necessarily an emergent inpatient procedure. In addition to systemic therapy, will need to consider bone directed therapy and possibly palliative radiation to any immediately concerning lesions. Palliative care consultation discussion will complement our specific oncologic diagnostic and therapeutic interventions. Plan 1. Immediate management of her pulmonary issues per hospitalist and pulmonary teams but noting the apparent progressive inflammation in her right lung as opposed to the otherwise stable metastatic findings, may need to consider whether there is a potential evolving inflammatory or infectious component to that 2. If she is sufficiently stable would be very helpful to maintain the currently scheduled plan for ultrasound-guided liver biopsy on Thursday. Should hold enoxaparin after tomorrow morning's dose in anticipation of that and will need to rewrite as an inpatient order for the biopsy. May require interim thoracentesis which could yield material for cytology but the liver biopsy may still be worthwhile to give robust material for NGS studies 3. I am not there to specifically assess the patient in person but if she is having significant localized skeletal pain, palliative radiation to that area may be a consideration 4. Agree that palliative care consultation could importantly complement our oncology specific efforts I will be away on vacation this week but will ask the onsite CCP team to check- in for further review History of Present Illness Reason for Consultation: Patient with what is probably now recurrent/metastatic lung adenocarcinoma admitted with acute on chronic respiratory failure Attending Physician: Jose Brito MD History of Present Illness Please note that this is a consultation constructed purely from review of the electronic database. I am working remotely and unable to speak directly with the patient or examine her. I reviewed both the [facility] and the current admission records which seem to be an accurate source of relevant information but I am completely reliant on that for my conclusions and perspectives. If there are urgent concerns regarding the need for more direct [id number] review, you should consider transferring the patient to another institution. One of my colleagues can follow later this week. The evaluation is consultative in nature and all patient care and treatment decisions can either be accepted or rejected by the patient's primary hospital- based treating physician using their own independent medical judgment for the patient. In the context 1 to 2 pack/day smoking habit for 40 years stopping in 2015 resulting in long-term oxygen requiring COPD she has had multiple episodes of respiratory dysfunction with multiple infections and COPD exacerbations. During a series of those between 2019 and 2021 she had evolution of a right lower lung nodule ultimately diagnosed as adenocarcinoma on a 01/31/2022 bronchoscopy. Of potential note, the lesion was strongly PDL1 at 80% at that time. Radiology indicated stage I disease and she was treated with SBRT 5000 cGy in 5 fractions completed in April 2022. She had successive admissions October 19 and October 24 of this year with respiratory dysfunction, CT imaging at that time suggested osteoblastic lesions in the thoracic spine and pathologic upper abdominal and adenopathy. This led to a 12/11/2022 PET scan which among other findings indicated at least 8 FDG avid lesions within the liver up to 2.7 cm in size and multiple scattered FDG avid sclerotic lesions throughout the visualized skeleton including a pathologic fracture within the right coracoid process. There was consolidation in the right lung that felt to be consistent with post radiation changes though could not rule out pneumonitis. There was also FDG avid adenopathy in the mediastinum, right hilum, though not in the retroperitoneum or pelvic areas. She was seen by me on 12/31/2022 with plans to proceed with an already scheduled ultrasound-guided biopsy of one of the liver lesions and as well with an MRI of the brain. She is diabetic, however, with respiratory distress and possible fluid overload Comorbidities include her oxygen requiring COPD, cardiac issues status post stent, type 2 diabetes, hypertension, hyperlipidemia She does have a history of melanoma of the right cheek but this was apparently of limited stage and there is been no signs of recurrence or new metachronous primary skin cancer. She is status post resection of what was apparently benign ovarian cyst many years ago Allergies Allergy/AdvReac Type Severity Reaction Status Date / Time tetracycline AdvReac Mild HEADACHE Verified 10/24/22 16:27 Home Medications Medication Instructions Recorded Confirmed Type aspirin 81 mg tablet,delayed 81 mg PO QAM 01/13/19 01/03/23 History release furosemide 40 mg tablet (Lasix) 40 mg PO QAM #30 tabs 01/16/19 01/03/23 Rx Black Elderberry 1 tab PO QAM 03/18/21 01/03/23 History amlodipine 2.5 mg tablet 2.5 mg PO DAILY 03/18/21 01/03/23 History ezetimibe 10 mg tablet 10 mg PO DAILY 03/18/21 01/03/23 History metformin 500 mg tablet 500 mg PO BIDM 03/18/21 01/03/23 History albuterol sulfate 90 mcg/actuation 2 puff inhalation Q4 PRN Wheezing 03/19/22 01/03/23 History aerosol inhaler (Ventolin HFA) levothyroxine 150 mcg tablet 150 mcg PO QAM 10/24/22 01/03/23 History turmeric 400 mg capsule 400 mg PO DAILY 10/24/22 01/03/23 History potassium chloride 10 mEq 10 meq PO DAILY #30 tabs 10/30/22 01/03/23 Rx tablet,extended release metoprolol succinate 25 mg 12.5 mg PO BID 12/02/22 01/03/23 History tablet,extended release 24 hr fluticasone fur. 100 mcg-umeclid 1 inh inhalation DAILY 01/03/23 01/03/23 History 62.5 mcg-vilant 25 mcg inhalat.powder (Trelegy Ellipta) pravastatin 20 mg tablet 20 mg PO HS 01/03/23 01/03/23 History Patient History Medical History Alcohol use CAD (coronary artery disease) NSTEMI 2009 - moderate nonobstructive disease, no stenting Carotid stenosis Chronic diastolic (congestive) heart failure Chronic respiratory failure with hypoxia Constipation COPD, group D, by GOLD 2017 classification Diabetes mellitus, type II HLD (hyperlipidemia) HTN (hypertension) Hypothyroid Metastatic lung cancer (metastasis from lung to other site) (12/11/22) Obesity (BMI 30.0-34.9) BHAVIK on CPAP Primary cancer of right lower lobe of lung (01/31/22) s/p radiation Surgical History S/P cholecystectomy Family History Mother , age 69 Heart disease Rheumatoid arthritis Osteoarthritis Father , age 69 Myocardial infarction Asthma COPD (chronic obstructive pulmonary disease) Sister , age 29 Lung disease Other Diabetes Social History Smoking Status: Never smoker Tobacco Type: Cigarettes Age Started Using Tobacco: 18; Age Quit Using Tobacco: 60; packs per day: 2; Second Hand Exposure: No; Hx Alcohol Use: Yes Alcohol type: beer Alcohol type Comment: 3-5 coors light daily Alcohol Intake Frequency: 4 or More x per/Week Hx Substance Use: No Preferred Language: Ug[place] Communication Ability: Effective Integration Director Required: No Beliefs That Will Affect Care: None marital status: / Current Living Situation: Alone current occupational status: retired and disabled 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 [employer] How many Children do You have: 3 Feels Safe at Home: Yes Safety Concerns: Feels Safe At This Time caffeine: Yes (Diet pepsi - 4 cans/day) Assistive Devices: CPAP and Oxygen - Continuous Physical Exam Physical Exam: Vital signs are listed is stable with pulse ox 94% on 4 L nasal cannula Hospitalist note suggest an intact neurological status, some basilar rales and d ecreased breath sounds but no acute respiratory distress, stable cardiac and abdominal exams Results & Data Vital Signs (Past 12 Hours) Vital Signs Temp Pulse Pulse Resp BP Pulse Ox O2 Del Method 01/04/23 16:21 36.7 C 64 20 121/73 94 Nasal Cannula 01/04/23 15:27 67 01/04/23 08:00 Nasal Cannula 01/04/23 11:19 36.8 C 63 20 110/71 94 Nasal Cannula 01/04/23 08:06 36.6 C 68 20 146/70 H 92 Nasal Cannula 01/04/23 07:09 61 O2 Flow Rate 01/04/23 16:21 4 01/04/23 15:27 01/04/23 08:00 4 01/04/23 11:19 4 01/04/23 08:06 5 01/04/23 07:09 Laboratory Results Laboratory Results - last 24 hr 01/03/23 01/04/23 01/04/23 20:35 03:18 07:27 WBC 10.63 RBC 3.68 L Hgb 11.1 L Hct 35.9 L MCV 97.6 MCH 30.2 MCHC 30.9 L RDW Std Deviation 53.1 H RDW Coeff of Naa 14.9 H Plt Count 257 MPV 10.5 Sodium Potassium Chloride Carbon Dioxide Anion Gap BUN Creatinine Est Cr Clr Drug Dosing Est GFR ( Amer) Est GFR (Non-Af Amer) BUN/Creatinine Ratio Glucose POC Glucose 119 H 125 H Calcium 01/04/23 01/04/23 01/04/23 07:27 07:51 11:45 WBC RBC Hgb Hct MCV MCH MCHC RDW Std Deviation RDW Coeff of Naa Plt Count MPV Sodium 139 Potassium 4.0 Chloride 96 L Carbon Dioxide 35 H Anion Gap 8 BUN 15 Creatinine 0.51 L Est Cr Clr Drug Dosing 83.0 Est GFR ( Amer) 117.0 Est GFR (Non-Af Amer) 100.9 BUN/Creatinine Ratio 29.4 H Glucose 112 H POC Glucose 131 H 163 H Calcium 9.4 01/04/23 16:42 WBC RBC Hgb Hct MCV MCH MCHC RDW Std Deviation RDW Coeff of Naa Plt Count MPV Sodium Potassium Chloride Carbon Dioxide Anion Gap BUN Creatinine Est Cr Clr Drug Dosing Est GFR ( Amer) Est GFR (Non-Af Amer) BUN/Creatinine Ratio Glucose POC Glucose 124 H Calcium Diagnostic Findings Chest X-Ray 01/03/23 11:26 XR chest 1V portable HISTORY: 67 years-old Female Chest pain, nonspecific COMPARISON: PET CT 12/11/2022 TECHNIQUE: AP view of the chest FINDINGS: Hilar prominence with cardiomegaly redemonstrated. Prominent vascular congestion with interstitial coarsening and mild bibasilar densities. No pneumothorax. Osteoblastic skeletal metastasis again noted. No acute pathologic fracture is seen. IMPRESSION: 1. Cardiomegaly with mild pulmonary edema. 2. Mild bibasilar opacities favor atelectasis. 3. Osteoblastic skeletal metastasis again noted. ACT 112: Negative or not required by law. The above report was generated using voice recognition software. It may contain grammatical, syntax or spelling errors. Electronically signed by: Jon Lieberman M.D. 01/03/2023 12:00 PM Chest CTA 01/03/23 13:48 CT angio chest PE protocol CT DOSE: 829.16 mGy.cm HISTORY: 67 years-old Female with PE. Acute chest pain with shortness of breath TECHNIQUE: Multiple CTA images of the chest were obtained after the intravenous administration of 114 ml Optiray. Coronal and sagittal MIPS were obtained from the axial data set and were submitted for review. All measurements were obtained according to NASCET criteria. A dose lowering technique was utilized adhering to the principles of ALARA. COMPARISON: PET CT 12/11/2022, chest CT 11/27/2022 FINDINGS: CTA: Moderate cardiomegaly with mural fibrofatty changes of the left ventricular apex. Extensive coronary artery calcifications. No pericardial effusion. Atherosclerosis of the thoracic aorta without aneurysm. Mild dilation of the pulmonary arterial tree may represent pulmonary arterial hypertension. No pulmonary emboli identified. CT CHEST: No thyroid nodule. Mediastinal and hilar lymphadenopathy appears stable. Trace left and moderate right pleural effusions have increased in size from the prior study. Intralobular septal thickening. No pneumothorax. Stable 6 mm subpleural solid nodule of the lingula, image 124. Progressive right basilar consolidation obscures the patient's known right lower lobe lesion. Right basilar air bronchograms. Hepatomegaly with hepatic metastasis again noted, better evaluated on the comparison PET/CT. Unchanged enlarged gastrohepatic lymph nodes. No acute fracture identified. Right scapular metastatic focus. 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 No new skeletal lesions are identified. IMPRESSION: 1. Cardiomegaly with pulmonary edema, small left and moderate right pleural effusions. 2. No pulmonary emboli identified. 3. Progressive right basilar consolidation with obscuration of the known right lower lobe lesion. 4. Pathologic mediastinal and hilar lymphadenopathy appears stable. 5. Hepatic and osseous metastatic disease redemonstrated. No significant changes compared to the 12/11/2022 exam. ACT 112: Negative or not required by law. The above report was generated using voice recognition software. It may contain grammatical, syntax or spelling errors. Electronically signed by: Jon Lieberman M.D. 01/03/2023 3:03 PM PG Care Time/CCT Total # of Minutes Spent Total Time Spent with Patient: Total time spent is greater than 50% in coordination of care (as documented) at patient's floor/unit and/or counseling patient: Coding Level of Care Code 34740 IN/OBS CONSULT LVL 2,35M Diagnoses Acute on chronic respiratory failure with hypoxia J96.21 Metastatic lung cancer (metastasis from lung to other site) C34.90
[2023-01-04] MEDS: PRAVASTATIN SOD 20 MG TAB PO SCH (21:46)
[2023-01-05] MEDS: ENOXAPARIN INJ 40 MG/0.4 ML SYR SQ SCH ×2 (05:29→17:09)
[2023-01-05] MEDS: LEVOTHYROXINE SODIUM 150 MCG TABLET PO SCH (05:29)
[2023-01-05] MEDS: ACETAMINOPHEN 325 MG TAB PO PRN ×3 (07:25→20:36)
[2023-01-05] MEDS: MENTHOL TOP PRN ×2 (07:26→15:45)
[2023-01-05 07:27] LABS: Hematocrit (blood only) 34.9 % (37.0-47.0); Mean Corpuscular Hemoglobin 30.1 pg (25.0-34.0); Mean Corpuscular Hgb Conc 31.5 g/dL (32.0-36.0); Mean Corpuscular Volume 95.6 fL (80.0-100.0); Mean Platelet Volume 10.7 fL (9.4-12.4); Platelet Count 254 K/uL (130-400); RDW Coefficient of Variation 14.7 % (11.5-14.5); RDW Standard Deviation 51.3 fL (36.4-46.3); Red Blood Count 3.65 M/uL (4.20-5.40); White Blood Count 9.58 K/ul (4.8-10.8)
[2023-01-05 07:46] LABS: BUN Creatinine Ratio 27.8 (10-20); Calcium 9.5 mg/dl (8.6-10.3); Creatinine Clr Calc Pharmacy 111.2 ml/min; Est GFR (African American) 114.8 ml/min; Magnesium 1.9 mg/dl (1.7-2.4); Potassium 3.8 mmol/L (3.5-5.1)
[2023-01-05] MEDS: INSULIN ASPART PER UNIT CHARGE SC SCH ×4 (07:57→20:33)
[2023-01-05] MEDS: UMECLIDINIUM/VILANTEROL 62.5/25MCG 7 PUFFS/INHALER INH SCH (08:02)
[2023-01-05] MEDS: FLUTICASONE FUROATE 100MCG 14 PUFFS/INHALER INH SCH (08:02)
[2023-01-05] MEDS: METOPROLOL SUCC 25MG EXT REL TAB PO SCH ×2 (08:03→20:37)
[2023-01-05] MEDS: amLODIPine BESYLATE 5 MG TAB PO SCH (08:03)
[2023-01-05] MEDS: FOLIC ACID 1 MG TAB PO SCH (08:03)
[2023-01-05] MEDS: EZETIMIBE 10 MG TABLET PO SCH (08:03)
[2023-01-05] MEDS: FUROSEMIDE 40 MG/4 ML VIAL IV SCH (08:03)
[2023-01-05] MEDS: THIAMINE HCL 100 MG TAB PO SCH (08:03)
[2023-01-05] MEDS: POTASSIUM CHLORIDE 10 MEQ TABCR PO SCH (08:03)
--- NOTE | 2023-01-05 08:55 | XRay Report ---
XR chest 2V PA/lateral HISTORY: Follow-up pleural effusion. COMPARISON: Chest CT 01/03/2023. FINDINGS: Decrease in size in the now small right pleural effusion. A small left pleural effusion per sists. The heart remains enlarged. No evidence for pulmonary edema. Right basilar densities have also improved. There is a lobular right medial lung base density which may correspond to the patient's kn own pulmonary lesion. IMPRESSION: 1. Decrease in size in the now small right pleural effusion. No pneumothorax. 2. Lobular density within the right medial lung base may correspond to the patient's known pulmonary lesion. ACT 112: Negative or not required by law. Electronically signed by: Josse Mcelroy M.D. 01/05/2023 8:54 AM
--- NOTE | 2023-01-05 13:28 | Pulmonology Progress Note ---
Date of Service January 05, 2023 Assessment & Plan (1) CHF (congestive heart failure): Heart failure chronicity: acute on chronic Heart failure type: unspecified Qualified Code(s): I50.9 - Heart failure, unspecified (2) Metastatic lung cancer (metastasis from lung to other site): (3) Bilateral pleural effusion: Plan IMPRESSION: 67-year-old female with a significant past medical history of COPD with hypercarbic respiratory failure, BHAVIK, chronic hypoxemic respiratory failure on continuous oxygen therapy, and metastatic non-small cell lung CA admitted with worsening shortness of breath and found to have pleural effusions. RECOMMENDATIONS: 1. Bilateral pleural effusions - * Clinically, the patient has been responding to diuresis at this time. * She is back on her baseline oxygen at this point. * Did discuss thoracentesis which the patient would rather avoid at this point as she is to undergo liver biopsy on Thursday. * She should continue with her BiPAP at night and supplemental oxygen [id number]. 2. COPD - * Continue with home inhaler therapies. 3. CHF - * Likely largely driving force on hypoxia and effusions. * She was seen in October for similar presentation and responded well to diuresis at that point. Thank you for allowing us to participate the care of this patient. At this point, pulmonary medicine will sign off. Please feel free to reconsult in the event that we can be of assistance. Admission and Anticipated Discharge Date Admission Date: January 03, 2023 Supervising Physician Co-Signing Physician Notes Patient seen and examined. EMR reviewed. Patient is doing well from a respiratory standpoint. She has minimal effusion on her chest x-ray today. They are working on establishing a tissue diagnosis. Given her lack of pulmonary symptoms at this point time would favor continuing diuresis and expectant management. Pulmonary will sign off at this point time. Feel free to contact us if we can be of additional assistance. Subjective Patient was seen and evaluated at bedside today. She reports that she is breathing much better at this time. She feels that she is back to her baseline. She wears her CPAP at night and 2 to 3 L of oxygen at all times. Patient is scheduled to have liver biopsy performed Thursday. Review of Systems Review of Systems: A complete 6 point review of systems was reviewed with the patient with pertinent positives and negatives as per history of present illness. All else were negative. Physical Exam Physical Exam: VITAL SIGNS - Vital signs and nursing notes were reviewed. GENERAL - 67-year-old female appearing her stated age who is in no acute distress. Communicates well with provider and answers questions appropriately. LUNGS - Auscultation reveals slight bibasilar rales. CARDIAC - RRR with S1/S2. No murmur, rubs, or gallops appreciated. ABDOMEN - Abdominal inspection demonstrates obese. BS normoactive all four quadrants. No tenderness, palpable masses, or ascites noted. EXTREMITIES - No peripheral cyanosis. Mild pretibial edema present. +3/5 radial palpated throughout. PSYCH - A&Ox3 and cooperates fully with examiner. Pt is very pleasant and interacts well with examiner. Results & Data Results & Data Vital Signs (Past 12 Hours) Vital Signs Temp Pulse Pulse Resp BP Pulse Ox O2 Del Method 01/05/23 11:40 71 18 110/69 92 CPAP 01/05/23 08:22 36.3 C L 62 18 125/72 94 Room Air 01/05/23 07:20 Nasal Cannula 01/05/23 07:05 60 01/05/23 04:00 36.0 C L 75 18 123/78 97 CPAP O2 Flow Rate 01/05/23 11:40 3 01/05/23 08:22 01/05/23 07:20 3.5 01/05/23 07:05 01/05/23 04:00 4 PG Care Time/CCT Total # of Minutes Spent Total Time Spent with Patient: Total time spent is greater than 50% in coordination of care (as documented) at patient's floor/unit and/or counseling patient: Coding Level of Care Code 66820 SUB INP/OBS CARE 3/50MIN Diagnoses CHF (congestive heart failure) I50.9 Heart failure chronicity: acute on chronic Heart failure type: unspecified Metastatic lung cancer (metastasis from lung to other site) C34.90 Bilateral pleural effusion J90
--- NOTE | 2023-01-05 17:53 | Hospitalist Progress Note ---
Date of Service January 05, 2023 Assessment & Plan (1) Acute on chronic respiratory failure with hypoxia: (2) Bilateral pleural effusion: (3) Metastatic lung cancer (metastasis from lung to other site): (4) COPD, group D, by GOLD 2017 classification: (5) Chronic diastolic (congestive) heart failure: Plan: Bilateral pleural effusion Acute on chronic respiratory failure with hypoxia Likely multifactorial-- metastatic lung cancer, COPD, acute on chronic diastolic heart failure Chronic oxygen dependency: On 2.5 L supplemental oxygen chronically --CTA:Cardiomegaly with pulmonary edema, small left and moderate right pleural effusions. No pulmonary emboli identified. Progressive right basilar consolidation with obscuration of the known right lower lobe lesion. Pathologic mediastinal and hilar lymphadenopathy appears stable. Hepatic and osseous metastatic disease redemonstrated. No significant changes compared to the 12/11/2022 exam. --Repeat CXR:Decrease in size in the now small right pleural effusion. No pneumothorax. Lobular density within the right medial lung base may correspond to the patient's known pulmonary lesion. --Respiratory viral panel negative, no change in sputum, afebrile --doubt COPD exacerbation or infectious source --Echo 11/06-EF 55 to 60%, grade 1 diastolic dysfunction --Hold p.o. Lasix Continue IV Lasix Monitor I's and O's, daily weight Appreciate pulmonology input No plan for thoracentesis currently Chest x-ray today shows improved pleural effusion Continue supplemental oxygen Continue BiPAP at bedtime Metastatic lung cancer Hx lung cancer s/p treatment with recent PET scan showing liver and bone mets. Scheduled for liver biopsy on 01/07/23. 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 Continue thiamine, folic acid (10) Hypothyroid: Plan: Continue levothyroxine DVT Px SQ Lovenox--patient has been refusing SCDs for now CODE STATUS Full code Admission and Anticipated Discharge Date Admission Date: January 03, 2023 Subjective Patient is seen and examined at bedside States feeling better today Dyspnea continues to improve No new complaints Discussed with oncology today Has chronic cough Saturating well on 4 L supplemental oxygen Review of Systems Review of Systems: All systems reviewed & are unremarkable except as noted in Subjective Physical Exam Physical Exam: Physical Exam: Vitals signs as noted above General Appearance:Morbidly Obese, no apparent distress Head: normocephalic, Atraumatic Eyes: normal inspection, EOMI Neck: supple, Trachea midline Respiratory/Chest: Decreased breath sounds, CTA, No accessory muscle use Cardiovascular: S1, S2, No murmur Abdomen/GI:Soft, Non tender, Bowel sounds present Extremities/Musculoskeletal:normal inspection, Trace edema Neurologic/Psych:AAOX3, grossly no focal neurological deficits Skin: normal color, warm Results & Data Results & Data Vital Signs (Past 12 Hours) Vital Signs Temp Pulse Pulse Resp BP Pulse Ox O2 Del Method 01/05/23 16:49 36.4 C L 65 18 109/60 94 Nasal Cannula 01/05/23 16:17 63 01/05/23 11:40 71 18 110/69 92 CPAP 01/05/23 08:22 36.3 C L 62 18 125/72 94 Room Air 01/05/23 07:20 Nasal Cannula 01/05/23 07:05 60 O2 Flow Rate 01/05/23 16:49 4 01/05/23 16:17 01/05/23 11:40 3 01/05/23 08:22 01/05/23 07:20 3.5 01/05/23 07:05 Laboratory Results Short CBC 01/05/23 Range/Units 06:44 WBC 9.58 (4.8-10.8) K/ul Hgb 11.0 L (12.0-16.0) g/dl Hct 34.9 L (37.0-47.0) % Plt Count 254 (130-400) K/uL BMP 01/05/23 06:44 Sodium 138 Potassium 3.8 Chloride 96 L Carbon Dioxide 35 H BUN 15 Creatinine 0.54 L Glucose 116 H Calcium 9.5
[2023-01-05] MEDS: PRAVASTATIN SOD 20 MG TAB PO SCH (20:37)
[2023-01-06] MEDS: ACETAMINOPHEN 325 MG TAB PO PRN ×4 (00:42→20:35)
[2023-01-06] MEDS: ENOXAPARIN INJ 40 MG/0.4 ML SYR SQ SCH (06:11)
[2023-01-06] MEDS: LEVOTHYROXINE SODIUM 150 MCG TABLET PO SCH (06:27)
--- NOTE | 2023-01-06 07:48 | Palliative Care Consultation ---
Date of Consultation January 05, 2023 late entry note/consult done 01/05/23 Assessment & Plan (1) Palliative care by specialist: Met with pt. Provided overview of Palliative Medicine, a subspecialty that provides specialized medical care for people living with a serious illness by offering a focus on quality of life. Palliative Medicine is often conflated with hospice: I advised patient/family that Palliative and hospice can be partners but we are not the same. It is important to understand the difference so that we may be informed, and not afraid. Palliative Medicine works to improve QOL through reduction of symptom burden/more control over their illness, for both the patient and family. Palliative medicine clinicians are board certified, specially-trained and another member of the patient's medical care team. We often provide an extra layer of support because our care is based on the needs of the patient, not the prognosis; as such, it's appropriate at any age/advancing stage of a serious illness and can be provided along with curative treatment. Palliative Medicine clinicians are also trained in advanced communication methodologies, to facilitate complex discussions about advanced illness planning, which are needed to help assure that the treatment choices match the patient's goals, aka delivering Goal Concordant care. Finally, we discussed that hospice is a visiting nurse service that focuses on care delivered at the very end of life for patients with terminal illness, with life expectancy less than 6 month. patient seemed a bit apprehensive of why Palliative Medicine was consulted. I advised her that my role in her medical provider team is to help her sure that her pain and symptom management is optimized, that her quality of life remains within her desired range and that some conversations about what her wishes/preferences/goals moving forward are done so that the care plan could be developed that is in alignment with what she wants for herself. (2) Advanced care planning/counseling discussion: A 40 minute [id number] advance care planning discussion was held directly with patient at the bedside.We reviewed that all chronic/progressive disease has a declining trajectory over time where facets of patient self-identity and independence are lost. Every acute event leads to a further decline, resulting- many times, in a new baseline. Advised that the greatest priority is to determine what matters most to pt, then family and to develop a plan of care that is aligned with those priorities. Advance illness planning conversations are conducted to review goals and expectations, support shared decision-making, and engage in disease specific advance care planning. This type of advance care planning is sometimes referred to as 'preparedness planning. It is used to review the risks and benefits of offered therapy, elicit and deepen und erstanding of the underlying illness and therapeutic options, ensure adequate psychosocial support, address existential concerns and coping, and engage in end-of-life planning. Preparedness planning is not meant to replace informed consent discussions. Palliative medicine plays a role in the process of deepening a patients understanding of this specific medical intervention and ensuring this treatment aligns with their goals of care remains a central tenet of the planning conversation. We spoke for some time about what patient's goals are for herself. She states that she wants to see the fluid issue resolved so she can return home and go back to living her life. She does not have a very deep insight into the depth and extent of her medical issues, and appears to have some more limited insight into the status of her cancer. When I try to explore her understanding of her cancer, especially the focus of this metastatic spread, she avoided this line of conversation and reverted to saying she just needed the fluid to go away so that she could return home. She also states she is hoping to not have to get another biopsy as she feels that that would be a very painful process, tells me her roommate last admission "had one of those and she seemed to be in an awful lot of pain.". She did not want to discuss code status. (3) Dyspnea and respiratory abnormalities: Plan No thoracentesis planned Liver bx tomorrow Will likely need follow up GOC discussion in partnership with CM and oncology once biopsy results are known. Please note, I will be out of office nixon tomorrow through 01/10/23, returning Thursday01/12/23. Dr. Shira Kothari will be covering in my absence. Thank you for allowing us to participate in the ongoing care of this patient. Please don't hesitate to call or page with any additional concerns. Dr. Charisma Hartmann DNP Director, Palliative Care History of Present Illness Reason for Consultation: goals of care Attending Physician: Jose Brito MD History of Present Illness 67-year-old female with metastatic, lung cancer, chronic hypoxic respiratory failure, COPD, active, smoking, active EtOH consumption, admitted from home with worsening shortness of breath, and found to have recurrent pleural effusion Past medical history, HPI, admitting notes reviewed.Patient seen at bedside, no family present. She tells me that she is hoping for the fluid effusion to resolve so she may be discharged home in the next 1 to 2 days. She also states she's hoping to avoid having another biopsy. She does not feel that the fluid reaccumulation is linked or related to her cancer. She believes this is more a problem related to heart failure. Allergies Allergy/AdvReac Type Severity Reaction Status Date / Time tetracycline AdvReac Mild HEADACHE Verified 10/24/22 16:27 Home Medications Medication Instructions Recorded Confirmed Type aspirin 81 mg tablet,delayed 81 mg PO QAM 01/13/19 01/03/23 History release furosemide 40 mg tablet (Lasix) 40 mg PO QAM #30 tabs 01/16/19 01/03/23 Rx Black Elderberry 1 tab PO QAM 03/18/21 01/03/23 History amlodipine 2.5 mg tablet 2.5 mg PO DAILY 03/18/21 01/03/23 History ezetimibe 10 mg tablet 10 mg PO DAILY 03/18/21 01/03/23 History metformin 500 mg tablet 500 mg PO BIDM 03/18/21 01/03/23 History albuterol sulfate 90 mcg/actuation 2 puff inhalation Q4 PRN Wheezing 03/19/22 01/03/23 History aerosol inhaler (Ventolin HFA) levothyroxine 150 mcg tablet 150 mcg PO QAM 10/24/22 01/03/23 History turmeric 400 mg capsule 400 mg PO DAILY 10/24/22 01/03/23 History potassium chloride 10 mEq 10 meq PO DAILY #30 tabs 10/30/22 01/03/23 Rx tablet,extended release metoprolol succinate 25 mg 12.5 mg PO BID 12/02/22 01/03/23 History tablet,extended release 24 hr fluticasone fur. 100 mcg-umeclid 1 inh inhalation DAILY 01/03/23 01/03/23 History 62.5 mcg-vilant 25 mcg inhalat.powder (Trelegy Ellipta) pravastatin 20 mg tablet 20 mg PO HS 01/03/23 01/03/23 History Patient History Medical History Alcohol use CAD (coronary artery disease) NSTEMI 2009 - moderate nonobstructive disease, no stenting Carotid stenosis Chronic diastolic (congestive) heart failure Chronic respiratory failure with hypoxia Constipation COPD, group D, by GOLD 2017 classification Diabetes mellitus, type II HLD (hyperlipidemia) HTN (hypertension) Hypothyroid Metastatic lung cancer (metastasis from lung to other site) (12/11/22) Obesity (BMI 30.0-34.9) BHAVIK on CPAP Primary cancer of right lower lobe of lung (01/31/22) s/p radiation Surgical History S/P cholecystectomy Family History Mother , age 69 Heart disease Rheumatoid arthritis Osteoarthritis Father , age 69 Myocardial infarction Asthma COPD (chronic obstructive pulmonary disease) Sister , age 29 Lung disease Other Diabetes Social History Smoking Status: Never smoker Tobacco Type: Cigarettes Age Started Using Tobacco: 18; Age Quit Using Tobacco: 60; packs per day: 2; Second Hand Exposure: No; Hx Alcohol Use: Yes Alcohol type: beer Alcohol type Comment: 3-5 coors light daily Alcohol Intake Frequency: 4 or More x per/Week Hx Substance Use: No Preferred Language: Japanese Communication Ability: Effective [employer] Wafers Tester Required: No Beliefs That Will Affect Care: None marital status: / Current Living Situation: Alone current occupational status: retired and disabled 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 She's able to speak in full sentences. There is mild bitemporal wasting noted. Neck is supple. Oral mucosa pink, no thrush is noted. Dentition poor. Breath sounds diminished with a few basal crackles. There's no audible wheezes. +S1 S2. There's no appreciable JVD. Abdomen is obese but soft and nontender. There's plus one edema to the lower extremities. Strength is intact throughout. She's able to follow commands. She is awake, alert, and oriented times three. Her skin is pale, pink, and warm to touch. Results & Data Vital Signs (Past 12 Hours) Vital Signs Temp Pulse Resp BP Pulse Ox O2 Del Method O2 Flow Rate 01/06/23 07:30 36.7 C 65 16 119/71 98 Nasal Cannula 3 01/06/23 03:18 69 18 115/69 95 BiPAP 4 01/05/23 20:00 Nasal Cannula 4 01/05/23 23:49 36.6 C 57 L 20 120/73 93 Nasal Cannula 4 Laboratory Results Data review Diagnostic Findings Data reviewed PG Care Time/CCT Total # of Minutes Spent Total Time Spent: 75 Total Time Spent with Patient: Total time spent is greater than 50% in coordination of care (as documented) at patient's floor/unit and/or counseling patient: Advanced Care Planning 84719 Advanced Care Planning 30 [place] [address] IN/OBS CONSULT LVL 5,80M Patient Type New History Comprehensive Exam Comprehensive Medical Decision Making High Complexity Diagnoses Palliative care by specialist Z51.5 Advanced care planning/counseling discussion Z71.89 Dyspnea and respiratory abnormalities R06.00; R06.89 Additional Codes Advanced Care Planning - 31311 Advanced Care Planning 30 Min: 89703 Advanced Care Planning 30 Min ([id number])
[2023-01-06 07:49] LABS: Calcium 9.4 mg/dl (8.6-10.3); Creatinine Clr Calc Pharmacy 113.8 ml/min; Est GFR (African American) 115.5 ml/min; Est GFR (Non-African American) 99.6 ml/min; Potassium 4.1 mmol/L (3.5-5.1)
[2023-01-06] MEDS: INSULIN ASPART PER UNIT CHARGE SC SCH ×4 (09:44→20:09)
[2023-01-06] MEDS: FOLIC ACID 1 MG TAB PO SCH (09:47)
[2023-01-06] MEDS: THIAMINE HCL 100 MG TAB PO SCH (09:47)
[2023-01-06] MEDS: UMECLIDINIUM/VILANTEROL 62.5/25MCG 7 PUFFS/INHALER INH SCH (09:47)
[2023-01-06] MEDS: FLUTICASONE FUROATE 100MCG 14 PUFFS/INHALER INH SCH (09:47)
[2023-01-06] MEDS: amLODIPine BESYLATE 5 MG TAB PO SCH (09:48)
[2023-01-06] MEDS: METOPROLOL SUCC 25MG EXT REL TAB PO SCH ×2 (09:48→20:31)
[2023-01-06] MEDS: EZETIMIBE 10 MG TABLET PO SCH (09:48)
[2023-01-06] MEDS: POTASSIUM CHLORIDE 10 MEQ TABCR PO SCH (09:49)
[2023-01-06] MEDS: FUROSEMIDE 40 MG/4 ML VIAL IV SCH (09:50)
[2023-01-06] MEDS: MENTHOL TOP PRN ×2 (09:52→15:46)
--- NOTE | 2023-01-06 17:39 | Hospitalist Progress Note ---
Date of Service January 06, 2023 Assessment & Plan (1) Acute on chronic respiratory failure with hypoxia: (2) Bilateral pleural effusion: (3) Metastatic lung cancer (metastasis from lung to other site): (4) COPD, group D, by GOLD 2017 classification: (5) Chronic diastolic (congestive) heart failure: Plan: Bilateral pleural effusion Acute on chronic respiratory failure with hypoxia Likely multifactorial-- metastatic lung cancer, COPD, acute on chronic diastolic heart failure Chronic oxygen dependency: On 2.5 L supplemental oxygen chronically --CTA:Cardiomegaly with pulmonary edema, small left and moderate right pleural effusions. No pulmonary emboli identified. Progressive right basilar consolidation with obscuration of the known right lower lobe lesion. Pathologic mediastinal and hilar lymphadenopathy appears stable. Hepatic and osseous metastatic disease redemonstrated. No significant changes compared to the 12/11/2022 exam. --Repeat CXR:Decrease in size in the now small right pleural effusion. No pneumothorax. Lobular density within the right medial lung base may correspond to the patient's known pulmonary lesion. --Respiratory viral panel negative, no change in sputum, afebrile --doubt COPD exacerbation or infectious source --Echo 11/06-EF 55 to 60%, grade 1 diastolic dysfunction --Hold p.o. Lasix Continue IV Lasix Monitor I's and O's, daily weight Appreciate pulmonology input No plan for thoracentesis currently Repeat Chest x-ray shows improved pleural effusion Continue BiPAP at bedtime Titrate oxygen to keep sats 88 to 92% given history of COPD Metastatic lung cancer Hx lung cancer s/p treatment with recent PET scan showing liver and bone mets. Scheduled for liver biopsy on 01/07/23. --Appreciate oncology Input Palliative consulted to help address goals of care -- Planned for ultrasound-guided liver biopsy tomorrow N.p.o. after midnight for liver biopsy tomorrow (6) CAD (coronary artery disease): Plan: Appears stable, no reports of chest pain ASA on hold due to upcoming liver biopsy Continue beta-mike and statin (7) HTN (hypertension): Plan: Continue metoprolol and amlodipine (8) Diabetes mellitus, type II: Plan: Hgb A1c 6.0 10/2022 Hold metformin and utilize NovoLog per protocol while hospitalized (9) Alcohol use: Plan: Patient reports drinking 3-5 beers/sink maker closely for signs of withdrawal Continue thiamine, folic acid (10) Hypothyroid: Plan: Continue levothyroxine DVT Px SQ Lovenox--patient has been refusing SCDs for now CODE STATUS Full code Admission and Anticipated Discharge Date Admission Date: January 03, 2023 Subjective Patient is seen and examined at bedside Reports only minimal cough Denies any dyspnea today No new complaints Saturating well on 4 L supplemental oxygen Denies any chest pain, dizziness, nausea, abdominal pain Plan for liver biopsy tomorrow Review of Systems Review of Systems: All systems reviewed & are unremarkable except as noted in Subjective Physical Exam Physical Exam: Physical Exam: Vitals signs as noted above General Appearance:Morbidly Obese, no apparent distress Head: normocephalic, Atraumatic Eyes: normal inspection, EOMI Neck: supple, Trachea midline Respiratory/Chest: Decreased breath sounds, CTA, No accessory muscle use Cardiovascular: S1, S2, No murmur Abdomen/GI:Soft, Non tender, Bowel sounds present Extremities/Musculoskeletal:normal inspection, Trace edema Neurologic/Psych:AAOX3, grossly no focal neurological deficits Skin: normal color, warm Results & Data Results & Data Vital Signs (Past 12 Hours) Vital Signs Temp Pulse Pulse Resp BP BP Pulse Ox 01/06/23 14:16 68 01/06/23 10:04 98 01/06/23 14:55 36.5 C 63 18 114/74 95 01/06/23 07:15 66 01/06/23 11:12 36.5 C 65 18 118/74 95 01/06/23 07:46 01/06/23 07:30 36.7 C 65 16 119/71 98 O2 Del Method O2 Flow Rate 01/06/23 14:16 01/06/23 10:04 Nasal Cannula 4 01/06/23 14:55 Nasal Cannula 4 01/06/23 07:15 01/06/23 11:12 Nasal Cannula 4 01/06/23 07:46 Nasal Cannula 4 01/06/23 07:30 Nasal Cannula 3 Laboratory Results BMP 01/06/23 07:05 Sodium 139 Potassium 4.1 Chloride 98 Carbon Dioxide 34 H BUN 18 Creatinine 0.53 L Glucose 110 H Calcium 9.4
[2023-01-06] MEDS: PRAVASTATIN SOD 20 MG TAB PO SCH (20:32)
[2023-01-07] MEDS: LEVOTHYROXINE SODIUM 150 MCG TABLET PO SCH (05:37)
[2023-01-07] MEDS: ACETAMINOPHEN 325 MG TAB PO PRN ×3 (05:43→20:19)
[2023-01-07 07:43] LABS: Hematocrit (blood only) 33.5 % (37.0-47.0); Hemoglobin 10.6 g/dl (12.0-16.0); Mean Corpuscular Hemoglobin 30.3 pg (25.0-34.0); Mean Corpuscular Hgb Conc 31.6 g/dL (32.0-36.0); Mean Corpuscular Volume 95.7 fL (80.0-100.0); Mean Platelet Volume 10.3 fL (9.4-12.4); Platelet Count 256 K/uL (130-400); RDW Coefficient of Variation 14.6 % (11.5-14.5); RDW Standard Deviation 50.5 fL (36.4-46.3); White Blood Count 9.25 K/ul (4.8-10.8)
[2023-01-07] MEDS ORDERED: fentaNYL citrate PF 100 MCG/2 ML VIAL ONE (08:33)
[2023-01-07] MEDS ORDERED: GELATIN SPONGE 12-7MM ONE (08:33)
[2023-01-07 08:54] LABS: BUN Creatinine Ratio 35.3 (10-20); Calcium 9.3 mg/dl (8.6-10.3); Creatinine Clr Calc Pharmacy 117.3 ml/min; Est GFR (Non-African American) 100.9 ml/min
[2023-01-07] MEDS: POTASSIUM CHLORIDE 10 MEQ TABCR PO SCH (09:47)
[2023-01-07] MEDS: THIAMINE HCL 100 MG TAB PO SCH (09:47)
[2023-01-07] MEDS: FOLIC ACID 1 MG TAB PO SCH (09:48)
[2023-01-07] MEDS: amLODIPine BESYLATE 5 MG TAB PO SCH (09:48)
[2023-01-07] MEDS: EZETIMIBE 10 MG TABLET PO SCH (09:48)
[2023-01-07] MEDS: UMECLIDINIUM/VILANTEROL 62.5/25MCG 7 PUFFS/INHALER INH SCH (09:49)
[2023-01-07] MEDS: FLUTICASONE FUROATE 100MCG 14 PUFFS/INHALER INH SCH (09:49)
[2023-01-07] MEDS: METOPROLOL SUCC 25MG EXT REL TAB PO SCH ×2 (09:49→20:53)
[2023-01-07] MEDS: FUROSEMIDE 40 MG/4 ML VIAL IV SCH (10:00)
[2023-01-07] MEDS: INSULIN ASPART PER UNIT CHARGE SC SCH ×4 (11:18→20:52)
--- NOTE | 2023-01-07 13:13 | Ultrasound Report ---
Ultrasound guided right lobe liver lesion core biopsy INDICATION: History of lung carcinoma; multiple liver lesions PROCEDURE: Procedure and risks were explained. Informed consent was obtained. A final timeout was com pleted. The anterior abdomen was prepped and draped in sterile fashion. 1% buffered lidocaine was uti lized for skin anesthesia. Utilizing ultrasound guidance, a 17-gauge coaxial needle was advanced down to the level of the right lobe liver lesion. Ultrasound images were obtained. An 18-gauge core biopsy needle was advanced, and 3 cores were obtained and given to the pathologist for review. The coaxial needle was removed and Ban d-Aid applied. The patient tolerated the procedure well. Vital signs will be monitored on the floor p ostprocedure. IMPRESSION: Right lobe liver lesion core biopsy as above. Performed, dictated, and signed by Krishna Eldridge PA-C; to be co-signed by Dr. Josse Mcelroy. Electronically signed by: Josse Mcelroy M.D. 01/07/2023 1:18 PM
--- NOTE | 2023-01-07 17:37 | XRay Report ---
XR humerus LT 2V CLINICAL HISTORY: Left arm pain. Lung cancer. COMPARISON: PET/CT December 11, 2022. FINDINGS: No acute fracture within the left humerus is identified. Note is made of a 1.9 cm scleroti c lesion within the proximal left humerus which corresponds to a FDG avid lesion of the CT of November 142022. There is no pathologic fracture. Alignment of the left shoulder and left elbow is anatomic. IMPRESSION: 1. No acute fracture within the left humerus. 2. 1.9 cm sclerotic proximal left humeral lesion which corresponds to an FDG avid sclerotic lesion on PET/CT of December 11, 2022. This favors a metastasis. No pathologic fracture. ACT 112: Negative or not required by law. Electronically signed by: Nehemias Holt M.D. 01/07/2023 5:35 PM
--- NOTE | 2023-01-07 19:09 | Hospitalist Progress Note ---
Date of Service January 07, 2023 Assessment & Plan (1) Acute on chronic respiratory failure with hypoxia: (2) Bilateral pleural effusion: (3) Metastatic lung cancer (metastasis from lung to other site): (4) COPD, group D, by GOLD 2017 classification: (5) Chronic diastolic (congestive) heart failure: Plan: Bilateral pleural effusion Acute on chronic respiratory failure with hypoxia Likely multifactorial-- metastatic lung cancer, COPD, acute on chronic diastolic heart failure Chronic oxygen dependency: On 2.5 L supplemental oxygen chronically --CTA:Cardiomegaly with pulmonary edema, small left and moderate right pleural effusions. No pulmonary emboli identified. Progressive right basilar consolidation with obscuration of the known right lower lobe lesion. Pathologic mediastinal and hilar lymphadenopathy appears stable. Hepatic and osseous metastatic disease redemonstrated. No significant changes compared to the 12/11/2022 exam. --Repeat CXR:Decrease in size in the now small right pleural effusion. No pneumothorax. Lobular density within the right medial lung base may correspond to the patient's known pulmonary lesion. --Respiratory viral panel negative, no change in sputum, afebrile --doubt COPD e xacerbation or infectious source --Echo 11/06-EF 55 to 60%, grade 1 diastolic dysfunction --Held p.o. Lasix, Continued IV Lasix -> switch to PO now Monitor I's and O's, daily weight Appreciate pulmonology input No plan for thoracentesis currently Repeat Chest x-ray shows improved pleural effusion Continue BiPAP at bedtime Titrate oxygen to keep sats 88 to 92% given history of COPD Metastatic lung cancer Hx lung cancer s/p treatment with recent PET scan showing liver and bone mets. Scheduled for liver biopsy on 01/07/23. 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 to use suppl. O2, breathing comfortably Review of Systems Review of Systems: All systems reviewed & are unremarkable except as noted in Subjective Physical Exam Physical Exam: General Appearance:Morbidly Obese F in no apparent distress Head: normocephalic, Atraumatic Eyes: normal inspection, EOMI Neck: supple Respiratory/Chest: Decreased breath sounds, CTA, No accessory muscle use Cardiovascular: S1, S2, No murmur Abdomen/GI:Soft, Non tender, Bowel sounds present Extremities/Musculoskeletal:normal inspection, Trace edema, moves extremities Neurologic/Psych:AAOX3, speech fluent, answers appropriately, moves extremities Skin: normal color, warm Results & Data Results & Data Vital Signs (Past 12 Hours) Vital Signs Temp Pulse Pulse Pulse Resp BP BP 01/07/23 14:20 62 01/07/23 07:15 60 01/07/23 15:17 36.5 C 62 18 119/59 L 01/07/23 10:56 36.6 C 68 18 110/70 01/07/23 10:26 36.6 C 67 18 114/68 01/07/23 09:56 36.7 C 68 18 111/71 01/07/23 09:26 36.6 C 65 18 115/78 01/07/23 09:11 36.6 C 64 18 113/74 01/07/23 07:51 36.6 C 62 14 122/70 01/07/23 07:24 Pulse Ox O2 Del Method O2 Flow Rate 01/07/23 14:20 01/07/23 07:15 01/07/23 15:17 94 Nasal Cannula 4 01/07/23 10:56 94 Nasal Cannula 3 01/07/23 10:26 93 Nasal Cannula 3 01/07/23 09:56 95 Nasal Cannula 3 01/07/23 09:26 94 Nasal Cannula 3 01/07/23 09:11 94 Nasal Cannula 3 04/26/23 07:51 95 Nasal Cannula 3 01/07/23 07:24 Nasal Cannula 3 Laboratory Results 01/07/23 01/07/23 01/07/23 Range/Units 16:41 11:37 10:53 WBC (4.8-10.8) K/ul RBC (4.20-5.40) M/uL Hgb (12.0-16.0) g/dl Hct (37.0-47.0) % MCV (80.0-100.0) fL MCH (25.0-34.0) pg MCHC (32.0-36.0) g/dL RDW Std Deviation (36.4-46.3) fL RDW Coeff of Naa (11.5-14.5) % Plt Count (130-400) K/uL MPV (9.4-12.4) fL Sodium (136-145) mmol/L Potassium (3.5-5.1) mmol/L Chloride (98-107) mmol/L Carbon Dioxide (21-32) mmol/L Anion Gap (3-11) BUN (6-23) mg/dl Creatinine (0.6-1.2) mg/dl Est Cr Clr Drug Dosing ml/min Est GFR ( Amer) ml/min Est GFR (Non-Af Amer) ml/min BUN/Creatinine Ratio (10-20) Glucose (70-99(Fasting)) mg/dl POC Glucose 80 269 H 214 H (70-99) mg/dl Calcium (8.6-10.3) mg/dl 01/07/23 01/07/23 01/06/23 Range/Units 06:59 06:59 20:04 WBC 9.25 (4.8-10.8) K/ul RBC 3.50 L (4.20-5.40) M/uL Hgb 10.6 L (12.0-16.0) g/dl Hct 33.5 L (37.0-47.0) % MCV 95.7 (80.0-100.0) fL MCH 30.3 (25.0-34.0) pg MCHC 31.6 L (32.0-36.0) g/dL RDW Std Deviation 50.5 H (36.4-46.3) fL RDW Coeff of Naa 14.6 H (11.5-14.5) % Plt Count 256 (130-400) K/uL MPV 10.3 (9.4-12.4) fL Sodium 137 (136-145) mmol/L Potassium 4.0 (3.5-5.1) mmol/L Chloride 99 (98-107) mmol/L Carbon Dioxide 31 (21-32) mmol/L Anion Gap 7 (3-11) BUN 18 (6-23) mg/dl Creatinine 0.51 L (0.6-1.2) mg/dl Est Cr Clr Drug Dosing 117.3 ml/min Est GFR ( Amer) 117.0 ml/min Est GFR (Non-Af Amer) 100.9 ml/min BUN/Creatinine Ratio 35.3 H (10-20) Glucose 111 H (70-99(Fasting)) mg/dl POC Glucose 123 H (70-99) mg/dl Calcium 9.3 (8.6-10.3) mg/dl Medications Administered Current Inpatient Medications Acetaminophen (Acetaminophen 325 Mg Tab) 650 mg PO Q4H PRN PRN Reason: pain/fever Stop: 02/02/23 15:22 Last Admin: 01/07/23 09:52 Dose: 650 mg Albuterol (Albut/Ipratrop 3mg/0.5mg Neb 3 Ml Vial) 3 ml NEB Q4R PRN; Protocol PRN Reason: shortness of breath Stop: 02/02/23 18:59 Amlodipine Besylate (Amlodipine Besylate 5 Mg Tab) 2.5 mg PO DAILY NABEEL Stop: 02/03/23 08:59 Last Admin: 01/07/23 09:48 Dose: 2.5 mg Dextrose (Dextrose 50% 50 Ml Syringe) 25 - 50 ml IV UD PRN; Protocol PRN Reason: Hypoglycemia Protocol Stop: 02/02/23 15:22 Ezetimibe (Ezetimibe 10 Mg Tablet) 10 mg PO DAILY NABEEL Stop: 02/03/23 08:59 Last Admin: 01/07/23 09:48 Dose: 10 mg Enoxaparin Sodium (Enoxaparin Inj 40 Mg/0.4 Ml Syr) 40 mg SQ Q12H NABEEL Stop: 02/02/23 15:59 Last Admin: 01/06/23 06:11 Dose: Not Given Fluticasone Furoate (Fluticasone Furoate 100mcg 14 Puffs/Inhaler) 1 puffs INH DAILY [facility] Stop: 02/03/23 08:59 Last Admin: 01/07/23 09:49 Dose: 1 puffs Folic Acid (Folic Acid 1 Mg Tab) 1 mg PO QAM [facility] Stop: 02/03/23 08:59 Last Admin: 01/07/23 09:48 Dose: 1 mg Furosemide (Furosemide 40 Mg/4 Ml Vial) 40 mg IV DAILY [facility] Stop: 02/03/23 08:59 Last Admin: 01/07/23 10:00 Dose: 40 mg Glucagon (Glucagon For Inj 1 Mg Vial) 1 mg SQ UD PRN; Protocol PRN Reason: Hypoglycemia Protocol Stop: 02/02/23 15:22 Glucose (Glucose 10 Tab/Tube) 4 - 8 tab PO UD PRN; Protocol PRN Reason: Hypoglycemia Treatment Stop: 02/02/23 15:22 Glucose (Glucose 40% Gel 15 Gm Tube) 15 - 30 gm PO UD PRN; Protocol PRN Reason: Hypoglycemia Protocol Stop: 02/02/23 15:22 Insulin Aspart (Insulin Aspart Per Unit Charge) 0 units SC ACHS [facility] Stop: 02/02/23 16:29 Last Admin: 01/07/23 17:06 Dose: Not Given Levothyroxine Sodium (Levothyroxine Sodium 150 Mcg Tablet) 150 mcg PO DAILYBB [facility] Stop: 02/03/23 06:29 Last Admin: 01/07/23 05:37 Dose: 150 mcg Metoprolol Succinate (Metoprolol Succ 25mg Ext Rel Tab) 12.5 mg PO BID [facility] Stop: 02/02/23 20:59 Last Admin: 01/07/23 09:49 Dose: 12.5 mg Miscellaneous (Carbohydrates For Hypoglycemia ) 15 - 30 gm PO UD PRN PRN Reason: Hypoglycemia Protocol Stop: 02/02/23 15:22 Non-Formulary Patient's Own Med: Menthol 16% Topical Solution 1 each TOP QID PRN PRN Reason: As Needed for Pain Stop: 02/03/23 12:35 Last Admin: 01/06/23 15:46 Dose: 1 each Potassium Chloride (Potassium Chloride 10 Meq Tabcr) 10 meq PO DAILY [facility] Stop: 02/03/23 08:59 Last Admin: 01/07/23 09:47 Dose: 10 meq Pravastatin Sodium (Pravastatin Sod 20 Mg Tab) 20 mg PO HS [facility] Stop: 02/02/23 20:59 Last Admin: 01/06/23 20:32 Dose: 20 mg Thiamine HCl (Thiamine Hcl 100 Mg Tab) 100 mg PO QAM [facility] Stop: 02/03/23 08:59 Last Admin: 01/07/23 09:47 Dose: 100 mg Umeclidinium/Vilanterol (Umeclidinium/Vilanterol 62.5/25mcg 7 Puffs/Inhaler) 1 puffs INH DAILY [facility] Stop: 02/03/23 08:59 Last Admin: 01/07/23 09:49 Dose: 1 puffs
[2023-01-07] MEDS: PRAVASTATIN SOD 20 MG TAB PO SCH (20:53)
[2023-01-08] MEDS: ACETAMINOPHEN 325 MG TAB PO PRN ×2 (01:38→08:12)
[2023-01-08] MEDS: LEVOTHYROXINE SODIUM 150 MCG TABLET PO SCH (06:17)
[2023-01-08 07:56] VITALS: O2SAT 94
[2023-01-08] MEDS: METOPROLOL SUCC 25MG EXT REL TAB PO SCH (08:04)
[2023-01-08] MEDS: amLODIPine BESYLATE 5 MG TAB PO SCH (08:04)
[2023-01-08] MEDS: FOLIC ACID 1 MG TAB PO SCH (08:04)
[2023-01-08] MEDS: POTASSIUM CHLORIDE 10 MEQ TABCR PO SCH (08:04)
[2023-01-08] MEDS: THIAMINE HCL 100 MG TAB PO SCH (08:04)
[2023-01-08] MEDS: FLUTICASONE FUROATE 100MCG 14 PUFFS/INHALER INH SCH (08:05)
[2023-01-08] MEDS: EZETIMIBE 10 MG TABLET PO SCH (08:05)
[2023-01-08] MEDS: UMECLIDINIUM/VILANTEROL 62.5/25MCG 7 PUFFS/INHALER INH SCH (08:05)
[2023-01-08] MEDS: INSULIN ASPART PER UNIT CHARGE SC SCH ×2 (08:10→12:09)
[2023-01-08] MEDS ORDERED: FUROSEMIDE 40 MG TAB PO SCH (09:00)
[2023-01-08 09:07] LABS: Calcium 9.4 mg/dl (8.6-10.3); Creatinine Clr Calc Pharmacy 119.9 ml/min; Est GFR (African American) 117.7 ml/min; Est GFR (Non-African American) 101.6 ml/min; Magnesium 2.1 mg/dl (1.7-2.4)
[2023-01-08 11:45] VITALS: BP 117/69; PULSE 61; TEMP 97.9
--- NOTE | 2023-01-08 12:06 | Discharge Summary ---
Date of Service January 08, 2023 Admission HPI Per Admitting Provider 67 year old female with PMH DM type II, COPD, chronic hypoxic respiratory failure on 2.5L O2, hypothyroidism, lung cancer with mets to liver and bone, CAD, carotid stenosis, chronic diastolic CHF, HTN, chronic alochol use, and other problems listed below who presents to the ED for evaluation of shortness of breath. Patient reports symptoms have been ongoing and worsening for about the past 1 week. Patient reports she typically wears 2-1/2 L of oxygen at all times however pulse ox was showing oxygen saturations in the low 80s, therefore she increased to 3 L. She reports a chronic dry cough which is unchanged from baseline. No fevers or chills. Was using albuterol rescue inhaler without much improvement. She reports weighing herself on a daily basis and denies weight gain, lower extremity edema, orthopnea. No chest pain. Denies lightheadedness, dizziness, diaphoresis, syncopal events. No abdominal pain, nausea, vomiting, diarrhea. Denies urinary symptoms. In the ED, patient was requiring 4 L of oxygen via nasal cannula to maintain saturations. CXR shows mild pulmonary edema. Patient was given nebulizer treatment and IV Lasix. Admission Exam Per Admitting Provider Constitutional: WD/WN, vitals as above Eyes: PERRL, conjunctivae normal, anicteric sclerae ENMT: external ear and nose normal, oropharynx normal Respiratory: normal respiratory effort; no respiratory distress Auscultation: + diminished lung sounds Cardiovascular: Rate/Rhythm: regular rate and regular rhythm Vessels: normal peripheral pulses Extremities: no edema Gastrointestinal (Abdomen): normal bowel sounds, soft, nontender, no hepatosplenomegaly Musculoskeletal: no cyanosis or clubbing, extremities motor strength 5/5 Skin: no rashes, warm and dry Neurologic: PERRL, EOMI, accommodation nl, no face palsy, no dysarthria Psychiatric: A+Ox3, euthymic affect Principal Diagnosis Acute on chronic respiratory failure in the setting of Lung cancer with metastases Pleural effusions Discharge Exam General Appearance:Morbidly Obese F in no apparent distress Head: normocephalic, Atraumatic Eyes: normal inspection, EOMI Neck: supple Respiratory/Chest: Decreased breath sounds, CTA, No accessory muscle use Cardiovascular: S1, S2, No murmur Abdomen/GI: Soft, Non tender, Bowel sounds present Extremities/Musculoskeletal: normal inspection, Trace edema, moves extremities Neurologic/Psych: AAOX3, speech fluent, answers appropriately, moves extremities Skin:normal color, warm Discharge Data Allergies Allergy/AdvReac Type Severity Reaction Status Date / Time tetracycline AdvReac Mild HEADACHE Verified 10/24/22 16:27 Consultations 01/03/23 12:40 ED Decision to Admit Stat 01/03/23 15:10 Consult Pulmonology Routine 01/04/23 16:14 Consult Oncology Routine Consult Palliative Care Routine Ordered Studies 01/03/23 13:48 CT angio chest PE protocol Urgent FINDINGS: CTA: Moderate cardiomegaly with mural fibrofatty changes of the left ventricular apex. Extensive coronary artery calcifications. No pericardial effusion. Atherosclerosis of the thoracic aorta without aneurysm. Mild dilation of the pulmonary arterial tree may represent pulmonary arterial hypertension. No pulmonary emboli identified. CT CHEST: No thyroid nodule. Mediastinal and hilar lymphadenopathy appears stable. Trace left and moderate right pleural effusions have increased in size from the prior study. Intralobular septal thickening. No pneumothorax. Stable 6 mm subpleural solid nodule of the lingula, image 124. Progressive right basilar consolidation obscures the patient's known right lower lobe lesion. Right basilar air bronchograms. Hepatomegaly with hepatic metastasis again noted, better evaluated on the comparison PET/CT. Unchanged enlarged gastrohepatic lymph nodes. No acute fracture identified. Right scapular metastatic focus. Left proximal humeral osteoblastic lesion is best seen on the application technician images. No new skeletal lesions are identified. IMPRESSION: 1. Cardiomegaly with pulmonary edema, small left and moderate right pleural effusions. 2. No pulmonary emboli identified. 3. Progressive right basilar consolidation with obscuration of the known right lower lobe lesion. 4. Pathologic mediastinal and hilar lymphadenopathy appears stable. 5. Hepatic and osseous metastatic disease redemonstrated. No significant changes compared to the 12/11/2022 exam. 01/07/23 IR biopsy liver US Routine PROCEDURE: Procedure and risks were explained. Informed consent was obtained. A final timeout was completed. The anterior abdomen was prepped and draped in sterile fashion. 1% buffered lidocaine was utilized for skin anesthesia. Utilizing ultrasound guidance, a 17-gauge coaxial needle was advanced down to the level of the right lobe liver lesion. Ultrasound images were obtained. An 18-gauge core biopsy needle was advanced, and 3 cores were obtained and given to the pathologist for review. The coaxial needle was removed and Band-Aid applied. The patient tolerated the procedure well. Vital signs will be monitored on the floor postprocedure. IMPRESSION: Right lobe liver lesion core biopsy as above. Hospital Course (1) Acute on chronic respiratory failure with hypoxia: (2) Bilateral pleural effusion: (3) Metastatic lung cancer (metastasis from lung to other site): (4) COPD, group D, by GOLD 2017 classification: (5) Chronic diastolic (congestive) heart failure: Bilateral pleural effusion Acute on chronic respiratory failure with hypoxia Likely multifactorial-- metastatic lung cancer, COPD, acute on chronic diastolic heart failure Chronic oxygen dependency: On 2.5 L supplemental oxygen chronically --CTA:Cardiomegaly with pulmonary edema, small left and moderate right pleural effusions. No pulmonary emboli identified. Progressive right basilar consolidation with obscuration of the known right lower lobe lesion. Pathologic mediastinal and hilar lymphadenopathy appears stable. Hepatic and osseous metastatic disease redemonstrated. No significant changes compared to the 12/11/2022 exam. --Repeat CXR:Decrease in size in the now small right pleural effusion. No pneumothorax. Lobular density within the right medial lung base may correspond to the patient's known pulmonary lesion. --Respiratory viral panel negative, no change in sputum, afebrile --doubt COPD exacerbation or infectious source --Echo 11/06-EF 55 to 60%, grade 1 diastolic dysfunction --Held p.o. Lasix, Continued IV Lasix -> switched to PO Monitor I's and O's, daily weight Appreciate pulmonology input No plan for thoracentesis currently Repeat Chest x-ray shows improved pleural effusion Continue BiPAP at bedtime Titrate oxygen to keep sats 88 to 92% given history of COPD Currently pt back at baseline Metastatic lung cancer Hx lung cancer s/p treatment with recent PET scan showing liver and bone mets. Scheduled for liver biopsy on 01/07/23. --Appreciate oncology Input Palliative consulted to help address goals of care Now s/p ultrasound-guided liver biopsy (01/07/23) - pathology results pending L arm humerus pain XR obtained 1. No acute fracture within the left humerus. 2. 1.9 cm sclerotic proximal left humeral lesion which corresponds to an FDG avid sclerotic lesion on PET/CT of December 11, 2022. This favors a metastasis. No pathologic fracture. 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 Continue thiamine, folic acid (10) Hypothyroid: Continue levothyroxine Total Time Total Time Spent Total Time Spent (In Minutes): 40 Discharge Plan Discharge Items Patient Disposition: Home - Self-Care Reason For Visit: HYPOXIA Discharge Diagnosis: Acute on chronic respiratory failure in the setting of Lung cancer with metastases Pleural effusions Activity: Per Instructions section Non-emergency contact: Primary Care Provider, Specialist and Oncologist Call non-emergency contact if: you have any medication questions and your symptoms worsen Follow-up/Referrals: Bipin Ramos MD [Primary Care Provider] - (Date & Time 01/12/2023 3:20 PM Provider BOAZ Katz Department [facility] ) Diet: Carb Consistent or DM2, Heart Healthy and Low Sodium (2gm) Addtl Attending Provider Instructions: Follow-up with your primary care provider and oncologist. The appointment with your primary care doctor was scheduled for you for January 12, 2023. Results of the liver biopsy are pending. You will need to discuss results with your oncologist, and follow-up with palliative medicine. Pending Studies at Discharge: Yes Studies:: liver biopsy results Stand-Alone Forms: My [employer], Smoking Cessation Medications and DC Order Prescriptions: New oxycodone 5 mg tablet 5 mg PO BID PRN (Reason: pain) Qty: 5 0RF Continued albuterol sulfate [Ventolin HFA] 90 mcg/actuation HFA aerosol inhaler 2 puff inhalation Q4 PRN (Reason: Wheezing) metoprolol succinate 25 mg tablet extended release 24 hr 12.5 mg PO BID aspirin 81 mg Tablet,Delayed Release (Dr/Ec) 81 mg PO QAM furosemide [Lasix] 40 mg tablet 40 mg PO QAM Qty: 30 0RF metformin 500 mg tablet 500 mg PO BIDM amlodipine 2.5 mg tablet 2.5 mg PO DAILY ezetimibe 10 mg tablet 10 mg PO DAILY Black Elderberry 1 tab PO QAM levothyroxine 150 mcg tablet 150 mcg PO QAM turmeric 400 mg Capsule 400 mg PO DAILY potassium chloride 10 mEq tablet extended release 10 meq PO DAILY Qty: 30 0RF Trelegy Ellipta 100-62.5-25 mcg blister with device 1 inh INHALATION DAILY pravastatin 20 mg tablet 20 mg PO HS Discharge Orders: Discharge Order (Routine); Ordered 01/08/23 Ordered By: Jluis Ellis Admission Data Admit Date/Time: 01/03/23 13:02 Attending Provider: Jluis Ellis Admit Provider: Naz Moreno Primary Care Provider: Bipin Ramos Other Providers: Naz Moreno ; Jonathan So ; Mayra Briones ; Margy Beckman ; Alvaro Redmond ; Marine Hernandez ; Yemi Arizmendi ; Mannie Stewart ; Khalif Barrera ; Karime Torrez ; Petar,No Attending ; Shira Kothari ; Jose Brito
== END 2023-01-08 15:43 | disposition home or self-care (01) | DRG 180 ==
LOC: ED 10:56 → SUATTDRO 13:02 → 2W 13:02

== ENCOUNTER 2023-01-18 19:06 | Inpatient (IN) ==
[2023-01-18] MEDS ORDERED: SODIUM CHLORIDE 0.65% NA SOLN 45 ML (OCEAN) ONE (19:38)
--- NOTE | 2023-01-18 19:56 | Emergency Department Note ---
Impression & Plan Acute on chronic respiratory failure with hypoxia, Metastatic lung cancer (metastasis from lung to other site), COPD (chronic obstructive pulmonary disease), Pleural effusion, right ED Provider Note NAME: NATO PETTIT AGE: 67 SEX: F ARRIVES VIA: Walk-In INFORMANT: Patient ED PROVIDER(S): Armando Hensley MD CHIEF COMPLAINT: SOB PLAN: Disposition: Admit MEDICAL DECISION MAKING: The patient is a pleasant 67-year-old woman with a past medical history of chron ic hypoxic respiratory failure on 2.5 L nasal cannula at home, COPD, type 2 diabetes, history of lung cancer with metastases to liver and bone, CAD, chronic diastolic heart failure, hypertension, chronic alcohol use who presents to the emergency department via walk-in, accompanied by her daughter for evaluation of worsening shortness of breath over the past several days which is similar to her prior presentation to this facility where she was admitted from 01/03-01/08 with symptoms suspected be multifactorial including component of metastatic lung cancer, COPD and her diastolic heart failure. She had a echocardiogram performed most recently on 10/2022 with demonstrated EF of 55 to 60% and grade 1 diastolic dysfunction. She reports baseline cough with mild sputum production. Denies fevers, nausea, vomiting, diarrhea or urinary symptoms. On arrival the patient is mildly dyspneic but no acute distress, afebrile with blood pressure 160s/70s and O2 saturation 88 to 90% on 4 L nasal cannula. Lungs with scant intermittent wheezes bilaterally with diminished breath sounds of right mid to lower lung linder. EKG without overt acute ischemia. WBC 11.3K with neutrophil predominance though no left shift. H/H similar to prior. Platelets within normal limits. Chemistry without metabolic acidosis. Electrolytes and FTs without significant abnormality. Lactic acid 1.1, within normal limits. High-sensitivity troponin 6.4 within normal limits. BNP within normal limits. Lipase marginally above normal at 118, nonspecific. Procalcitonin is undetectable. TSH within normal limits. Respiratory viral panel is [employer] was negative. CTA of the chest was performed and was negative for PE though persistence of the patient's right pleural effusion seen with question of possible consolidation suggestive of aspiration. Patient was treated with DuoNeb, Solu-Medrol and guaifenesin for suspected component of COPD flare. Patient agrees with plan for admission for further management. Case was discussed with Dr. Christensen, [facility] who will evaluate the patient for admission. Further management per admitting team. Triage Nursing notes reviewed and agree them. Prior/outside medical records reviewed Vital Signs: reviewed Differential diagnosis: Reactive airway disease, pneumonia, pneumothorax, COPD, CHF, infections, cardiac ischemia, pulmonary embolism, musculoskeletal, gastrointestinal, as well as other pathologies. ER treatment provided: See below. Diagnostics interpreted by me: ECG: Normal sinus rhythm, 72 bpm, no ectopy, nonspecific T wave abnormality, no overt ST elevation or depression, QTc 442, QRS 86 Cardiac Monitoring: An order for continuous cardiac monitoring was placed and demonstrated Normal sinus rhythm, 72 bpm, no ectopy. Laboratory studies: See below Imaging studies: See below Consultation(s): Case was discussed with Dr. Christensen, [facility] who will evaluate the patient for admission. HPI: The patient is a pleasant 67-year-old woman with a past medical history of chronic hypoxic respiratory failure on 2.5 L nasal cannula at home, COPD, type 2 diabetes, history of lung cancer with metastases to liver and bone, CAD, chronic diastolic heart failure, hypertension, chronic alcohol use who presents to the emergency department via walk-in, accompanied by her daughter for evaluation of worsening shortness of breath over the past several days which is similar to her prior presentation to this facility where she was admitted from 01/03-01/08 with symptoms suspected be multifactorial including component of metastatic lung cancer, COPD and her diastolic heart failure. She had a echocardiogram performed most recently on 10/2022 with demonstrated EF of 55 to 60% and grade 1 diastolic dysfunction. She reports baseline cough with mild sputum production. Denies fevers, nausea, vomiting, diarrhea or urinary symptoms. ROS: See above HPI for pertinent positives & negatives. A total of 10 systems reviewed and were otherwise negative. VITALS:See Below PHYSICAL EXAMINATION: GENERAL: Awake, alert, fatigued-appearing, in no distress, BMI 40.9. HENT: Normocephalic, atraumatic. Oropharynx unremarkable. EYES: Normal conjunctiva. Sclera non-icteric. NECK: Supple. No nuchal rigidity. FROM. No JVD. RESPIRATORY: Scant intermittent wheezes bilaterally with diminished breath anca nds of right mid to lower lung linder. Mildly dyspneic with without significant increased work of breathing. CARDIAC: Regular rate, normal rhythm. Extremities warm and well perfused. Pulses equal. ABDOMEN: Soft, non-distended. No tenderness to palpation. No rebound or guarding. No masses. RECTAL: Deferred. MUSCULOSKELETAL: Chest examination reveals no tenderness. The back is symmetrical on inspection without obvious abnormality. There is no CVA tenderness to palpation. No joint edema. LOWER EXTREMITIES: Calves are equal size bilaterally and non-tender. No edema. No discoloration. NEURO: Normal sensorium. No sensory or motor deficits noted. SKIN: No rash or jaundice noted. Armando Hensley MD Past Med/Surg History Medical History Alcohol use CAD (coronary artery disease) NSTEMI 2009 - moderate nonobstructive disease, no stenting Carotid stenosis Chronic diastolic (congestive) heart failure Chronic respiratory failure with hypoxia Constipation COPD, group D, by GOLD 2017 classification Diabetes mellitus, type II HLD (hyperlipidemia) HTN (hypertension) Hypothyroid Metastatic lung cancer (metastasis from lung to other site) (12/11/22) Obesity (BMI 30.0-34.9) BHAVIK on CPAP Primary cancer of right lower lobe of lung (01/31/22) s/p radiation Surgical History S/P cholecystectomy Family History Mother , age 69 Heart disease Rheumatoid arthritis Osteoarthritis Father , age 69 Myocardial infarction Asthma COPD (chronic obstructive pulmonary disease) Sister , age 29 Lung disease Other Diabetes Social History Smoking Status: Former smoker Tobacco Type: Cigarettes Age Started Using Tobacco: 18; Age Quit Using Tobacco: 60; packs per day: 2; Second Hand Exposure: No; Do You Dip or Chew Tobacco: No; Hx Alcohol Use: Yes Alcohol type: beer Alcohol type Comment: 3-5 coors light daily Alcohol Intake Frequency: 4 or More x per/Week Hx Substance Use: No Preferred Language: [place] Communication Ability: Effective Metal Sorter Required: No Beliefs That Will Affect Care: None marital status: / Current Living Situation: Alone current occupational status: retired and disabled 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 [employer] How many Children do You have: 3 Other Information That Helps Us Care for You: No Feels Safe at Home: Yes Safety Concerns: Feels Safe At This Time caffeine: Yes (Diet pepsi - 4 cans/day) Assistive Devices: Cane, Glasses and Oxygen - Continuous Allergies Allergies Allergy/AdvReac Type Severity Reaction Status Date / Time tetracycline AdvReac Mild HEADACHE Verified 01/18/23 20:12 Home Meds Home Medications Medication Instructions Recorded Confirmed aspirin 81 mg tablet,delayed 81 mg PO QAM 01/13/19 01/18/23 release Black Elderberry 1 tab PO QAM 03/18/21 01/18/23 amlodipine 2.5 mg tablet 2.5 mg PO DAILY 03/18/21 01/18/23 ezetimibe 10 mg tablet 10 mg PO DAILY 03/18/21 01/18/23 metformin 500 mg tablet 500 mg PO BIDM 03/18/21 01/18/23 albuterol sulfate 90 mcg/actuation 2 puff inhalation Q4 PRN Wheezing 03/19/22 01/18/23 aerosol inhaler (Ventolin HFA) levothyroxine 150 mcg tablet 150 mcg PO QAM 10/24/22 01/18/23 turmeric 400 mg capsule 400 mg PO DAILY 10/24/22 01/18/23 metoprolol succinate 25 mg 12.5 mg PO BID 12/02/22 01/18/23 tablet,extended release 24 hr fluticasone fur. 100 mcg-umeclid 1 inh inhalation DAILY 01/03/23 01/18/23 62.5 mcg-vilant 25 mcg inhalat.powder (Trelegy Ellipta) pravastatin 20 mg tablet 20 mg PO HS 01/03/23 01/18/23 Previous Rx's Medication Instructions Recorded furosemide 40 mg tablet (Lasix) 40 mg PO QAM #30 tabs 01/16/19 potassium chloride 10 mEq 10 meq PO DAILY #30 tabs 10/30/22 tablet,extended release Results & Data (ED) Vital Signs Vital Signs - 24 hr 01/18/23 19:10 01/18/23 19:20 01/18/23 20:05 Temperature 36.6 C Temperature Source Temporal Artery Scan Pulse Rate 79 76 Pulse Rate from SpO2 Sensor Pulse Rhythm Regular Pulse Strength Normal Respiratory Rate 24 Respiratory Effort / Characteristics Non-Labored Spontaneous Respiratory Depth Normal Respiratory Pattern Regular Blood Pressure 162/75 H Blood Pressure Mean 104 Blood Pressure Position Sitting Pulse Oximetry 88 L 90 Oxygen Delivery Method Nasal Cannula Nasal Cannula Oxygen Flow Rate 4 4 Sepsis Recent Fever Within 48 Hours No Sepsis New/Unexplained Change in Mental Status N/A Sepsis Action Taken by Nursing No Action Required 01/18/23 20:05 01/18/23 20:08 01/18/23 19:21 Temperature Temperature Source Pulse Rate 78 Pulse Rate from SpO2 Sensor 77 Pulse Rhythm Pulse Strength Respiratory Rate 22 Respiratory Effort / Characteristics Respiratory Depth Respiratory Pattern Blood Pressure 146/112 H Blood Pressure Mean 123 Blood Pressure Position Pulse Oximetry 90 Oxygen Delivery Method Nasal Cannula Oxygen Flow Rate 4 Sepsis Recent Fever Within 48 Hours Sepsis New/Unexplained Change in Mental Status Sepsis Action Taken by Nursing 01/18/23 19:24 01/18/23 19:24 01/18/23 19:30 Temperature Temperature Source Pulse Rate 73 Pulse Rate from SpO2 Sensor 73 Pulse Rhythm Pulse Strength Respiratory Rate 22 Respiratory Effort / Characteristics Respiratory Depth Respiratory Pattern Blood Pressure 153/84 H 150/75 H Blood Pressure Mean 107 100 Blood Pressure Position Pulse Oximetry 89 L Oxygen Delivery Method Oxygen Flow Rate Sepsis Recent Fever Within 48 Hours Sepsis New/Unexplained Change in Mental Status Sepsis Action Taken by Nursing 01/18/23 19:30 01/18/23 19:40 01/18/23 19:50 Temperature Temperature Source Pulse Rate 69 71 73 Pulse Rate from SpO2 Sensor 68 70 72 Pulse Rhythm Pulse Strength Respiratory Rate 25 H 22 20 Respiratory Effort / Characteristics Respiratory Depth Respiratory Pattern Blood Pressure Blood Pressure Mean Blood Pressure Position Pulse Oximetry 90 90 88 L Oxygen Delivery Method Oxygen Flow Rate Sepsis Recent Fever Within 48 Hours Sepsis New/Unexplained Change in Mental Status Sepsis Action Taken by Nursing 01/18/23 20:00 01/18/23 20:01 01/18/23 20:01 Temperature Temperature Source Pulse Rate 73 73 Pulse Rate from SpO2 Sensor 72 75 Pulse Rhythm Pulse Strength Respiratory Rate 17 19 Respiratory Effort / Characteristics Respiratory Depth Respiratory Pattern Blood Pressure 146/112 H Blood Pressure Mean 123 Blood Pressure Position Pulse Oximetry 90 87 L Oxygen Delivery Method Oxygen Flow Rate Sepsis Recent Fever Within 48 Hours Sepsis New/Unexplained Change in Mental Status Sepsis Action Taken by Nursing 01/18/23 20:10 01/18/23 20:29 01/18/23 20:30 Temperature Temperature Source Pulse Rate 69 78 Pulse Rate from SpO2 Sensor 70 78 Pulse Rhythm Pulse Strength Respiratory Rate 14 18 Respiratory Effort / Characteristics Respiratory Depth Respiratory Pattern Blood Pressure 140/71 Blood Pressure Mean 94 Blood Pressure Position Pulse Oximetry 89 L 83 L Oxygen Delivery Method Oxygen Flow Rate Sepsis Recent Fever Within 48 Hours Sepsis New/Unexplained Change in Mental Status Sepsis Action Taken by Nursing 01/18/23 20:30 01/18/23 20:40 01/18/23 20:50 Temperature Temperature Source Pulse Rate 74 66 64 Pulse Rate from SpO2 Sensor 74 65 64 Pulse Rhythm Pulse Strength Respiratory Rate 21 20 16 Respiratory Effort / Characteristics Respiratory Depth Respiratory Pattern Blood Pressure Blood Pressure Mean Blood Pressure Position Pulse Oximetry 88 L 90 91 Oxygen Delivery Method Oxygen Flow Rate Sepsis Recent Fever Within 48 Hours Sepsis New/Unexplained Change in Mental Status Sepsis Action Taken by Nursing 01/18/23 21:00 01/18/23 21:01 01/18/23 21:01 Temperature Temperature Source Pulse Rate 65 65 Pulse Rate from SpO2 Sensor 64 64 Pulse Rhythm Pulse Strength Respiratory Rate 15 19 Respiratory Effort / Characteristics Respiratory Depth Respiratory Pattern Blood Pressure 179/84 H Blood Pressure Mean 115 Blood Pressure Position Pulse Oximetry 93 92 Oxygen Delivery Method Oxygen Flow Rate Sepsis Recent Fever Within 48 Hours Sepsis New/Unexplained Change in Mental Status Sepsis Action Taken by Nursing 01/18/23 21:12 01/18/23 21:20 01/18/23 21:30 Temperature Temperature Source Pulse Rate 74 66 Pulse Rate from SpO2 Sensor 95 H 69 65 Pulse Rhythm Pulse Strength Respiratory Rate 14 21 Respiratory Effort / Characteristics Respiratory Depth Respiratory Pattern Blood Pressure Blood Pressure Mean Blood Pressure Position Pulse Oximetry 68 L 88 L 89 L Oxygen Delivery Method Oxygen Flow Rate Sepsis Recent Fever Within 48 Hours Sepsis New/Unexplained Change in Mental Status Sepsis Action Taken by Nursing 01/18/23 21:40 01/18/23 21:50 01/18/23 22:00 Temperature Temperature Source Pulse Rate 65 67 Pulse Rate from SpO2 Sensor 65 67 Pulse Rhythm Pulse Strength Respiratory Rate 20 20 Respiratory Effort / Characteristics Respiratory Depth Respiratory Pattern Blood Pressure 134/77 150/83 H Blood Pressure Mean 96 105 Blood Pressure Position Pulse Oximetry 89 L 90 Oxygen Delivery Method Oxygen Flow Rate Sepsis Recent Fever Within 48 Hours Sepsis New/Unexplained Change in Mental Status Sepsis Action Taken by Nursing 01/18/23 22:00 01/18/23 22:10 01/18/23 22:20 Temperature Temperature Source Pulse Rate 72 68 72 Pulse Rate from SpO2 Sensor 73 68 72 Pulse Rhythm Pulse Strength Respiratory Rate 14 19 19 Respiratory Effort / Characteristics Respiratory Depth Respiratory Pattern Blood Pressure Blood Pressure Mean Blood Pressure Position Pulse Oximetry 92 91 91 Oxygen Delivery Method Oxygen Flow Rate Sepsis Recent Fever Within 48 Hours Sepsis New/Unexplained Change in Mental Status Sepsis Action Taken by Nursing Laboratory Data Attestation: I reviewed the patient's lab results. 01/18/23 19:25 01/18/23 19:25 Lab Results 01/18/23 01/18/23 01/18/23 Range/Units 19:25 19:25 19:25 WBC 11.38 H (4.8-10.8) K/ul RBC 3.84 L (4.20-5.40) M/uL Hgb 11.4 L (12.0-16.0) g/dl POC Hgb (12.0-16.0) g/dl Hct 37.0 (37.0-47.0) % POC Hct (37-47) % MCV 96.4 (80.0-100.0) fL MCH 29.7 (25.0-34.0) pg MCHC 30.8 L (32.0-36.0) g/dL RDW Std Deviation 51.7 H (36.4-46.3) fL RDW Coeff of Naa 14.6 H (11.5-14.5) % Plt Count 305 (130-400) K/uL MPV 10.5 (9.4-12.4) fL Immature Gran % (Auto) 1.1 % Neut % (Auto) 79.1 % Lymph % (Auto) 10.4 % Pierce % (Auto) 6.2 % Eos % (Auto) 2.7 % Baso % (Auto) 0.5 % Neut # (Auto) 8.99 H (1.40-6.50) K/uL Lymph # (Auto) 1.18 L (1.2-3.4) K/uL Pierce # (Auto) 0.71 H (0.11-0.59) K/uL Eos # (Auto) 0.31 (0-0.50) K/uL Baso # (Auto) 0.06 (0-0.2) K/uL Immature Gran # (Auto) 0.13 (0.01-0.20) K/uL POC Sodium (135-144) mmol/L Sodium 138 (136-145) mmol/L POC Potassium (3.3-5.0) mmol/L Potassium 4.2 (3.5-5.1) mmol/L POC Chloride (101-112) mmol/L Chloride 100 (98-107) mmol/L Carbon Dioxide 30 (21-32) mmol/L POC Total CO2 (24-31) mmol/L Anion Gap 8 (3-11) POC Anion Gap (16-25) mmol/L POC BUN (7-18) mg/dl BUN 17 (6-23) mg/dl Creatinine 0.48 L (0.6-1.2) mg/dl POC Creatinine (0.6-1.3) mg/dl Est Cr Clr Drug Dosing Not Reportable Est GFR ( Amer) 119.3 ml/min Est GFR (Non-Af Amer) 102.9 ml/min BUN/Creatinine Ratio 35.4 H (10-20) Glucose 106 H (70-99(Fasting)) mg/dl POC Glucose (other) (70-99) mg/dl Calcium 9.3 (8.6-10.3) mg/dl POC Ioniz Calcium Dandy (1.12-1.32) mmol/l Magnesium 1.8 (1.7-2.4) mg/dl Total Bilirubin 0.3 (0.2-1.0) mg/dl AST 17 (13-39) U/L ALT 19 (7-52) U/L Alkaline Phosphatase 106 H (34-104) U/L Troponin I High Sens 6.4 (0-14) pg/ml B-Natriuretic Peptide 51 (0-100) pg/ml Total Protein 7.4 (6.0-8.3) gm/dl Albumin 4.2 (3.4-5.0) gm/dl Globulin 3.2 (2.5-4.0) gm/dl Albumin/Globulin Ratio 1.3 (0.9-2) Lipase 118 H (11-82) U/L Procalcitonin (0-0.5) ng/ml TSH (0.300-4.500) uIu/ml Ethyl Alcohol mg/dL (<10.0) mg/dl Adenovirus (PCR) (NotDetected) B. pertussis DNA (PCR) (NotDetected) B.parapertussis DNA PCR (NotDetected) C. pneumoniae DNA (PCR) (NotDetected) Coronavirus OC43 (PCR) (NotDetected) Coronavirus HKU1 (PCR) (NotDetected) Coronavirus 229E (PCR) (NotDetected) SARS-CoV-2 (PCR) (NotDetected) Coronavirus NL63 (PCR) (NotDetected) Human Metapneumovir PCR (NotDetected) Influenza Type A (PCR) (NotDetected) Influenza Type B (PCR) (NotDetected) M. pneumoniae (PCR) (NotDetected) Parainfluenza 1 (PCR) (NotDetected) Parainfluenza 2 (PCR) (NotDetected) Parainfluenza 3 (PCR) (NotDetected) Parainfluenza 4 (PCR) (NotDetected) RSV (PCR) (NotDetected) Entero/Rhino (PCR) (NotDetected) 01/18/23 01/18/23 01/18/23 Range/Units 19:42 19:42 19:43 WBC (4.8-10.8) K/ul RBC (4.20-5.40) M/uL Hgb (12.0-16.0) g/dl POC Hgb (12.0-16.0) g/dl Hct (37.0-47.0) % POC Hct (37-47) % MCV (80.0-100.0) fL MCH (25.0-34.0) pg MCHC (32.0-36.0) g/dL RDW Std Deviation (36.4-46.3) fL RDW Coeff of Naa (11.5-14.5) % Plt Count (130-400) K/uL MPV (9.4-12.4) fL Immature Gran % (Auto) % Neut % (Auto) % Lymph % (Auto) % Pierce % (Auto) % Eos % (Auto) % Baso % (Auto) % Neut # (Auto) (1.40-6.50) K/uL Lymph # (Auto) (1.2-3.4) K/uL Pierce # (Auto) (0.11-0.59) K/uL Eos # (Auto) (0-0.50) K/uL Baso # (Auto) (0-0.2) K/uL Immature Gran # (Auto) (0.01-0.20) K/uL POC Sodium (135-144) mmol/L Sodium (136-145) mmol/L POC Potassium (3.3-5.0) mmol/L Potassium (3.5-5.1) mmol/L POC Chloride (101-112) mmol/L Chloride (98-107) mmol/L Carbon Dioxide (21-32) mmol/L POC Total CO2 (24-31) mmol/L Anion Gap (3-11) POC Anion Gap (16-25) mmol/L POC BUN (7-18) mg/dl BUN (6-23) mg/dl Creatinine (0.6-1.2) mg/dl POC Creatinine (0.6-1.3) mg/dl Est Cr Clr Drug Dosing Est GFR ( Amer) ml/min Est GFR (Non-Af Amer) ml/min BUN/Creatinine Ratio (10-20) Glucose (70-99(Fasting)) mg/dl POC Glucose (other) (70-99) mg/dl Calcium (8.6-10.3) mg/dl POC Ioniz Calcium Dandy (1.12-1.32) mmol/l Magnesium (1.7-2.4) mg/dl Total Bilirubin (0.2-1.0) mg/dl AST (13-39) U/L ALT (7-52) U/L Alkaline Phosphatase (34-104) U/L Troponin I High Sens (0-14) pg/ml B-Natriuretic Peptide (0-100) pg/ml Total Protein (6.0-8.3) gm/dl Albumin (3.4-5.0) gm/dl Globulin (2.5-4.0) gm/dl Albumin/Globulin Ratio (0.9-2) Lipase (11-82) U/L Procalcitonin < 0.05 (0-0.5) ng/ml TSH 3.343 (0.300-4.500) uIu/ml Ethyl Alcohol mg/dL < 10.0 (<10.0) mg/dl Adenovirus (PCR) (NotDetected) B. pertussis DNA (PCR) (NotDetected) B.parapertussis DNA PCR (NotDetected) C. pneumoniae DNA (PCR) (NotDetected) Coronavirus OC43 (PCR) (NotDetected) Coronavirus HKU1 (PCR) (NotDetected) Coronavirus 229E (PCR) (NotDetected) SARS-CoV-2 (PCR) (NotDetected) Coronavirus NL63 (PCR) (NotDetected) Human Metapneumovir PCR (NotDetected) Influenza Type A (PCR) (NotDetected) Influenza Type B (PCR) (NotDetected) M. pneumoniae (PCR) (NotDetected) Parainfluenza 1 (PCR) (NotDetected) Parainfluenza 2 (PCR) (NotDetected) Parainfluenza 3 (PCR) (NotDetected) Parainfluenza 4 (PCR) (NotDetected) RSV (PCR) (NotDetected) Entero/Rhino (PCR) (NotDetected) 01/18/23 01/18/23 Range/Units 19:52 20:11 WBC (4.8-10.8) K/ul RBC (4.20-5.40) M/uL Hgb (12.0-16.0) g/dl POC Hgb 11.9 L (12.0-16.0) g/dl Hct (37.0-47.0) % POC Hct 35 L (37-47) % MCV (80.0-100.0) fL MCH (25.0-34.0) pg MCHC (32.0-36.0) g/dL RDW Std Deviation (36.4-46.3) fL RDW Coeff of Naa (11.5-14.5) % Plt Count (130-400) K/uL MPV (9.4-12.4) fL Immature Gran % (Auto) % Neut % (Auto) % Lymph % (Auto) % Pierce % (Auto) % Eos % (Auto) % Baso % (Auto) % Neut # (Auto) (1.40-6.50) K/uL Lymph # (Auto) (1.2-3.4) K/uL Pierce # (Auto) (0.11-0.59) K/uL Eos # (Auto) (0-0.50) K/uL Baso # (Auto) (0-0.2) K/uL Immature Gran # (Auto) (0.01-0.20) K/uL POC Sodium 140 (135-144) mmol/L Sodium (136-145) mmol/L POC Potassium 4.2 (3.3-5.0) mmol/L Potassium (3.5-5.1) mmol/L POC Chloride 100 L (101-112) mmol/L Chloride (98-107) mmol/L Carbon Dioxide (21-32) mmol/L POC Total CO2 28 (24-31) mmol/L Anion Gap (3-11) POC Anion Gap 17.0 (16-25) mmol/L POC BUN 15 (7-18) mg/dl BUN (6-23) mg/dl Creatinine (0.6-1.2) mg/dl POC Creatinine 0.5 L (0.6-1.3) mg/dl Est Cr Clr Drug Dosing Est GFR ( Amer) ml/min Est GFR (Non-Af Amer) ml/min BUN/Creatinine Ratio (10-20) Glucose (70-99(Fasting)) mg/dl POC Glucose (other) 109 H (70-99) mg/dl Calcium (8.6-10.3) mg/dl POC Ioniz Calcium Dandy 1.14 (1.12-1.32) mmol/l Magnesium (1.7-2.4) mg/dl Total Bilirubin (0.2-1.0) mg/dl AST (13-39) U/L ALT (7-52) U/L Alkaline Phosphatase (34-104) U/L Troponin I High Sens (0-14) pg/ml B-Natriuretic Peptide (0-100) pg/ml Total Protein (6.0-8.3) gm/dl Albumin (3.4-5.0) gm/dl Globulin (2.5-4.0) gm/dl Albumin/Globulin Ratio (0.9-2) Lipase (11-82) U/L Procalcitonin (0-0.5) ng/ml TSH (0.300-4.500) uIu/ml Ethyl Alcohol mg/dL (<10.0) mg/dl Adenovirus (PCR) Not Detected (NotDetected) B. pertussis DNA (PCR) Not Detected (NotDetected) B.parapertussis DNA PCR Not Detected (NotDetected) C. pneumoniae DNA (PCR) Not Detected (NotDetected) Coronavirus OC43 (PCR) Not Detected (NotDetected) Coronavirus HKU1 (PCR) Not Detected (NotDetected) Coronavirus 229E (PCR) Not Detected (NotDetected) SARS-CoV-2 (PCR) Not Detected (NotDetected) Coronavirus NL63 (PCR) Not Detected (NotDetected) Human Metapneumovir PCR Not Detected (NotDetected) Influenza Type A (PCR) Not Detected (NotDetected) Influenza Type B (PCR) Not Detected (NotDetected) M. pneumoniae (PCR) Not Detected (NotDetected) Parainfluenza 1 (PCR) Not Detected (NotDetected) Parainfluenza 2 (PCR) Not Detected (NotDetected) Parainfluenza 3 (PCR) Not Detected (NotDetected) Parainfluenza 4 (PCR) Not Detected (NotDetected) RSV (PCR) Not Detected (NotDetected) Entero/Rhino (PCR) Not Detected (NotDetected) Administered Medications Sodium Chloride (Nss 1000ml) 1,000 mls @ 50 mls/hr IV .Q20H ONE Stop: 01/19/23 18:31 Last Admin: 01/19/23 00:32 Dose: 50 mls/hr Documented By: SKYLER Insulin Aspart (Insulin Aspart Per Unit Charge) 0 units SC ACHS [facility] Stop: 02/17/23 23:38 Last Admin: 01/19/23 00:19 Dose: Not Given Documented By: SKYLER Insulin Glargine (Lantus Per Unit Charge) 5 units SQ HS [facility] Stop: 02/17/23 23:38 Last Admin: 01/19/23 00:29 Dose: 5 units Documented By: SKYLER Co-signed By: USAMA Ipratropium Cadet (Ipratropium Cadet Neb Soln 0.02% 2.5 Ml Vial) 0.5 mg INH Q6R [facility] Stop: 02/18/23 00:59 Last Admin: 01/19/23 00:08 Dose: 0.5 mg Documented By: EML Levalbuterol HCl (Levalbuterol 1.25mg/0.5ml Neb) 1.25 mg INH Q6R [facility] Stop: 02/18/23 00:59 Last Admin: 01/19/23 00:11 Dose: Not Given Documented By: EMAgustina Discontinued Medications Acetaminophen (Acetaminophen 325 Mg Tab) 650 mg PO NOW STA Stop: 01/18/23 21:58 Last Admin: 01/18/23 22:07 Dose: 650 mg Documented By: JOEY Albuterol (Albut/Ipratrop 3mg/0.5mg Neb 3 Ml Vial) 3 ml NEB NOW STA; Protocol Stop: 01/18/23 21:11 Last Admin: 01/18/23 21:37 Dose: 3 ml Documented By: JOEY Amlodipine Besylate (Amlodipine Besylate 5 Mg Tab) 2.5 mg PO NOW ONE Stop: 01/18/23 21:46 Last Admin: 01/18/23 22:07 Dose: 2.5 mg Documented By: JOEY Guaifenesin (Guaifenesin 600 Mg Tabcr) 1,200 mg PO NOW STA Stop: 01/18/23 21:14 Last Admin: 01/18/23 21:37 Dose: 1,200 mg Documented By: JOEY Magnesium Sulfate/Dextrose (Magnesium Sulfate / D5w) 1 gm in 100 mls @ 50 mls/hr IV ONE ONE Stop: 01/18/23 23:44 Last Infusion: 01/19/23 00:15 Dose: 0 mls/hr Documented By: Admin: 01/18/23 22:08 Dose: 50 mls/hr Documented By: JOEY Thiamine HCl 100 mg/ Syringe 10 mls @ 2 mls/min IV NOW STA Stop: 01/18/23 22:41 Last Admin: 01/19/23 00:32 Dose: 2 mls/min Documented By: SKYLER Ampicillin Sodium/Sulbactam Sodium 3,000 mg/ Sodium Chloride 108 mls @ 200 mls/hr IV NOW STA Stop: 01/18/23 23:04 Last Infusion: 01/19/23 01:08 Dose: 0 mls/hr Documented By: Admin: 01/19/23 00:32 Dose: 200 mls/hr Documented By: SKYLER Ioversol (Optiray 320 500ml) 114 ml IV ONCE ONE Stop: 01/18/23 20:24 Last Admin: 01/18/23 20:23 Dose: 114 ml Documented By: ABDOULAYE Levalbuterol HCl (Levalbuterol Hcl 0.63 Mg/3 Ml Neb) Confirm Administered Dose 0.63 mg .ROUTE .STK-MED ONE Stop: 01/19/23 00:07 Last Admin: 01/19/23 00:08 Dose: 0.63 mg Documented By: ELVIA Methylprednisolone (Methylprednisolone 125 Mg/2 Ml Vial) 125 mg IV NOW STA Stop: 01/18/23 21:11 Last Admin: 01/18/23 21:37 Dose: 125 mg Documented By: JOEY Sodium Chloride (Sodium Chloride 0.65% Na Soln 45 Ml ([place])) 2 sprays NA NOW ONE Stop: 01/18/23 19:39 Last Admin: 01/18/23 19:55 Dose: 2 sprays Documented By: JOEY Imaging Data Radiologist's Impression: Chest CTA 01/18/23 19:38 Exam(s): CTA CHEST IV Amt: 114ml EXAM: CT Angiography Chest With Intravenous Contrast CLINICAL HISTORY: Reason for exam: sob, metastatic lung ca, r/o PE. TECHNIQUE: Axial computed tomographic angiography images of the chest with intravenous contrast. CTDI is 41 mGy and DLP is 802.71 mGy-cm. Automated exposure control was utilized for the study. A dose lowering technique was utilized adhering to the principles of ALARA. MIP reconstructed images were created and reviewed. COMPARISON: No relevant prior studies available. FINDINGS: Pulmonary arteries: Unremarkable. No acute pulmonary embolism. Aorta: Non-aneurysmal aorta. Atherosclerotic changes of the aorta. Lungs: Airspace consolidation at the RIGHT lung base, concerning for aspiration pneumonia. Mild-moderate RIGHT parapneumonic effusion. Pleural space: Unremarkable. No significant effusion. No pneumothorax. Heart: Cardiomegaly. No pericardial effusion. No evidence of RV dysfunction. Bones/joints: Degenerative changes of the spine. No acute fracture. No dislocation. Soft tissues: Unremarkable. Lymph nodes: Unremarkable. No enlarged lymph nodes. IMPRESSION: 1. No acute pulmonary embolism. 2. Airspace consolidation at the RIGHT lung base, concerning for aspiration pneumonia. Mild-moderate RIGHT parapneumonic effusion. Electronically signed by: Duy Gary MD 01/18/23 21:04 PM Discharge Plan Visit Data Chief Complaint: Shortness of Breath/Dyspnea Stated Complaint: SHORTNESS OF BREATH ED Provider: Armando Hensley Discharge Problem: Acute on chronic respiratory failure with hypoxia, Metastatic lung cancer (met astasis from lung to other site), COPD (chronic obstructive pulmonary disease), Pleural effusion, right Patient Disposition: Admitted As Inpatient Discharge Instructions Interventions: ED Discharge Assessment Last Done: 01/18/23 23:05
[2023-01-18 19:59] LABS: Basophils # (auto) 0.06 K/uL (0-0.2); Basophils % (auto) 0.5 %; Eosinophils # (auto) 0.31 K/uL (0-0.50); Eosinophils % (auto) 2.7 %; Hemoglobin 11.4 g/dl (12.0-16.0); Immature Granulocytes # (auto) 0.13 K/uL (0.01-0.20); Immature Granulocytes % (auto) 1.1 %; Lymphocytes # (auto) 1.18 K/uL (1.2-3.4); Lymphocytes % (auto) 10.4 %; Mean Corpuscular Hemoglobin 29.7 pg (25.0-34.0); Mean Corpuscular Hgb Conc 30.8 g/dL (32.0-36.0); Mean Corpuscular Volume 96.4 fL (80.0-100.0); Mean Platelet Volume 10.5 fL (9.4-12.4); Monocytes # (auto) 0.71 K/uL (0.11-0.59); Monocytes % (auto) 6.2 %; Neutrophils # (auto) 8.99 K/uL (1.40-6.50); Neutrophils % (auto) 79.1 %; Platelet Count 305 K/uL (130-400); RDW Coefficient of Variation 14.6 % (11.5-14.5); RDW Standard Deviation 51.7 fL (36.4-46.3); Red Blood Count 3.84 M/uL (4.20-5.40); White Blood Count 11.38 K/ul (4.8-10.8)
[2023-01-18 20:06] LABS: Alanine Aminotransferase 19 U/L (7-52); Albumin Globulin Ratio 1.3 (0.9-2); Albumin Level 4.2 gm/dl (3.4-5.0); Alkaline Phosphatase 106 U/L (34-104); Anion Gap 8 (3-11); Aspartate Aminotransferase 17 U/L (13-39); BUN Creatinine Ratio 35.4 (10-20); Bilirubin,Total 0.3 mg/dl (0.2-1.0); Blood Urea Nitrogen 17 mg/dl (6-23); Calcium 9.3 mg/dl (8.6-10.3); Carbon Dioxide 30 mmol/L (21-32); Chloride 100 mmol/L (98-107); Est GFR (African American) 119.3 ml/min; Est GFR (Non-African American) 102.9 ml/min; Globulin 3.2 gm/dl (2.5-4.0); Glucose 106 mg/dl (70-99(Fasting)); Lipase 118 U/L (11-82); Magnesium 1.8 mg/dl (1.7-2.4); Potassium 4.2 mmol/L (3.5-5.1); Sodium 138 mmol/L (136-145); Total Protein 7.4 gm/dl (6.0-8.3)
[2023-01-18 20:14] LABS: Troponin I High Sensitivity 6.4 pg/ml (0-14)
[2023-01-18] MEDS ORDERED: OPTIRAY 320 500ml IV ONE (20:23)
[2023-01-18 20:24] LABS: iSTAT Creatinine 0.5 mg/dl (0.6-1.3); iSTAT Hemoglobin 11.9 g/dl (12.0-16.0); iSTAT Ionized Calcium 1.14 mmol/l (1.12-1.32); iSTAT Potassium 4.2 mmol/L (3.3-5.0)
[2023-01-18 21:02] LABS: Adenovirus PCR Not Detected (NotDetected); Bordetella parapertussis PCR Not Detected (NotDetected); Bordetella pertussis PCR Not Detected (NotDetected); Chlamydia pneumoniae PCR Not Detected (NotDetected); Coronavirus 229E PCR Not Detected (NotDetected); Coronavirus CoV-2 (COVID19)PCR Not Detected (NotDetected); Coronavirus HKU1 PCR Not Detected (NotDetected); Coronavirus NL63 PCR Not Detected (NotDetected); Coronavirus OC43PCR Not Detected (NotDetected); Human Metapneumovirus PCR Not Detected (NotDetected); Influenza A PCR Not Detected (NotDetected); Influenza B PCR Not Detected (NotDetected); Mycoplasma pneumoniae PCR Not Detected (NotDetected); Parainfluenza Virus 1 PCR Not Detected (NotDetected); Parainfluenza Virus 2 PCR Not Detected (NotDetected); Parainfluenza Virus 3 PCR Not Detected (NotDetected); Parainfluenza Virus 4 PCR Not Detected (NotDetected); Respiratory Syncytial VirusPCR Not Detected (NotDetected); Rhinovirus/Enterovirus PCR Not Detected (NotDetected)
--- NOTE | 2023-01-18 21:05 | CT Scan Report ---
Exam(s): CTA CHEST IV Amt: 114ml EXAM: CT Angiography Chest With Intravenous Contrast CLINICAL HISTORY: Reason for exam: sob, metastatic lung ca, r/o PE. TECHNIQUE: Axial computed tomographic angiography images of the chest with intravenous contrast. CTDI is 41 mGy and DLP is 802.71 mGy-cm. Automated exposure control was utilized for the study. A dose lowering technique was utilized adhering to the principles of ALARA. MIP reconstructed images were created and reviewed. COMPARISON: No relevant prior studies available. FINDINGS: Pulmonary arteries: Unremarkable. No acute pulmonary embolism. Aorta: Non-aneurysmal aorta. Atherosclerotic changes of the aorta. Lungs: Airspace consolidation at the RIGHT lung base, concerning for aspiration pneumonia. Mild-moderate RIGHT parapneumonic effusion. Pleural space: Unremarkable. No significant effusion. No pneumothorax. Heart: Cardiomegaly. No pericardial effusion. No evidence of RV dysfunction. Bones/joints: Degenerative changes of the spine. No acute fracture. No dislocation. Soft tissues: Unremarkable. Lymph nodes: Unremarkable. No enlarged lymph nodes. IMPRESSION: 1. No acute pulmonary embolism. 2. Airspace consolidation at the RIGHT lung base, concerning for aspiration pneumonia. Mild-moderate RIGHT parapneumonic effusion. Electronically signed by: Duy Gary MD 01/18/23 21:04 PM
[2023-01-18] MEDS ORDERED: ALBUT/IPRATROP 3MG/0.5MG NEB 3 ML VIAL NEB STA (21:10)
[2023-01-18] MEDS ORDERED: methylPREDNISolone 125 MG/2 ML VIAL IV STA (21:10)
[2023-01-18] MEDS ORDERED: guaiFENesin 600 MG TABCR PO STA (21:13)
[2023-01-18] MEDS ORDERED: MAGNESIUM SULFATE / D5W 1 GM/100 ML BAG IV ONE (21:45)
[2023-01-18] MEDS ORDERED: amLODIPine BESYLATE 5 MG TAB PO ONE (21:45)
[2023-01-18] MEDS ORDERED: ACETAMINOPHEN 325 MG TAB PO STA (21:57)
--- NOTE | 2023-01-18 22:24 | History & Physical Report ---
Date of Service January 18, 2023 Assessment & Plan (1) Acute and chronic respiratory failure with hypercapnia: Plan: hx chronic respiratory failure secondary to COPD on home O2 secondary to COPD exacerbation, possible aspiration pneumonia, possible alcohol abuse/? Postobstructive pneumonia/complicated pneumonia with pleural effusion (? residual from 2 weeks ago) Possible sepsis chronic diastolic heart failure (EF 60-65%, TTE 2020), patient euvolemic to dry hx CAD/PVD as per records hypertension, elevated secondary to illness hyperlipidemia, on statin and Ezetemibe Rx metastatic lung cancer status post radiation, bone and liver mets, patient scheduled for outpatient brain MRI at [facility] this week. DM 2 on oral medications, well-controlled as of recent hemoglobin A1c of 5.9 last November 2022 hypothyroidism, last year's TSH slightly elevated at 7 chronic anemia, hemoglobin at baseline past tobacco abuse Medical telemetry Supplemental O2 baseline ABG CS, Zosyn Nebs RTC, prednisone course Will request hospital radiologist to review CT images as Stat Rad did not utilize prior studies for comparison as per report. Pulmonary consult Re: Complicated pneumonia DT precautions, initiate TIM S if with signs of alcohol withdrawal Patient inquiring if Brain MRI scheduled at [facility] this week for her lung cancer work-up can be done while she is admitted. Basal bolus insulin. ISS BG goal 1 10-1 40, carb count coverage Recheck TSH DVT prophylaxis per Lovenox subcu Full code Text document was generated using [employer] voice recognition software. It may contain grammatical or spelling errors. Kindly contact undersigned for clarification of any documentation item in question. History of Present Illness Chief Complaint: Worsening shortness of breath Primary Care Provider: Bipin Ramos MD History obtained from patient, family, and records. Medical history significant for chronic diastolic heart failure (EF 60-65%, TTE 2020), CAD/PVD as per records, hypertension, hyperlipidemia, chronic respiratory failure secondary to COPD on home O2, metastatic lung cancer status post radiation, DM 2 on oral medications, hypothyroidism, chronic anemia (baseline hemoglobin 10-11), history of melanoma, possible alcohol abuse as per records, past tobacco abuse. Recent confinement 2 weeks ago for acute on chronic respiratory failure secondary to decompensated heart failure. CT chest at time of confinement showed 1. Cardiomegaly with pulmonary edema, small left and moderate right pleural effusions. 2. No pulmonary emboli identified. 3. Progressive right basilar consolidation with obscuration of the known right lower lobe lesion. 4. Pathologic mediastinal and hilar lymphadenopathy appears stable. 5. Hepatic and osseous metastatic disease redemonstrated. A few days after discharge, patient noted worsening shortness of breath noted at home without chest pain complaints. Some sinus drainage with junky cough symptoms. No fever, no chills, no fluid retention. Denies aspiration. O2 sat 60s upon arrival at the ER. Solu-Medrol and neb treatment administered for possible COPD exacerbation. 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[employer] Allergies Allergy/AdvReac Type Severity Reaction Status Date / Time tetracycline AdvReac Mild HEADACHE Verified 01/18/23 20:12 Home Medications Medication Instructions Recorded Confirmed Type aspirin 81 mg tablet,delayed 81 mg PO QAM 01/13/19 01/18/23 History release furosemide 40 mg tablet (Lasix) 40 mg PO QAM #30 tabs 01/16/19 01/18/23 Rx Black Elderberry 1 tab PO QAM 03/18/21 01/18/23 History amlodipine 2.5 mg tablet 2.5 mg PO DAILY 03/18/21 01/18/23 History ezetimibe 10 mg tablet 10 mg PO DAILY 03/18/21 01/18/23 History metformin 500 mg tablet 500 mg PO BIDM 03/18/21 01/18/23 History albuterol sulfate 90 mcg/actuation 2 puff inhalation Q4 PRN Wheezing 03/19/22 01/18/23 History aerosol inhaler (Ventolin HFA) levothyroxine 150 mcg tablet 150 mcg PO QAM 10/24/22 01/18/23 History turmeric 400 mg capsule 400 mg PO DAILY 10/24/22 01/18/23 History potassium chloride 10 mEq 10 meq PO DAILY #30 tabs 10/30/22 01/18/23 Rx tablet,extended release metoprolol succinate 25 mg 12.5 mg PO BID 12/02/22 01/18/23 History tablet,extended release 24 hr fluticasone fur. 100 mcg-umeclid 1 inh inhalation DAILY 01/03/23 01/18/23 History 62.5 mcg-vilant 25 mcg inhalat.powder (Trelegy Ellipta) pravastatin 20 mg tablet 20 mg PO HS 01/03/23 01/18/23 History Past Med/Surg History Medical History Alcohol use CAD (coronary artery disease) NSTEMI 2009 - moderate nonobstructive disease, no stenting Carotid stenosis Chronic diastolic (congestive) heart failure Chronic respiratory failure with hypoxia Constipation COPD, group D, by GOLD 2017 classification Diabetes mellitus, type II HLD (hyperlipidemia) HTN (hypertension) Hypothyroid Metastatic lung cancer (metastasis from lung to other site) (12/11/22) Obesity (BMI 30.0-34.9) BHAVIK on CPAP Primary cancer of right lower lobe of lung (01/31/22) s/p radiation Surgical History S/P cholecystectomy Family History Mother , age 69 Heart disease Rheumatoid arthritis Osteoarthritis Father , age 69 Myocardial infarction Asthma COPD (chronic obstructive pulmonary disease) Sister , age 29 Lung disease Other Diabetes Social History Smoking Status: Former smoker Tobacco Type: Cigarettes Age Started Using Tobacco: 18; Age Quit Using Tobacco: 60; packs per day: 2; Second Hand Exposure: No; Do You Dip or Chew Tobacco: No; Hx Alcohol Use: Yes Alcohol type: beer Alcohol type Comment: 3-5 coors light daily Alcohol Intake Frequency: 4 or More x per/Week Hx Substance Use: No Preferred Language: Persian Communication Ability: Effective Mental Health Advanced Practice Nurse Required: No Beliefs That Will Affect Care: None marital status: / Current Living Situation: Alone current occupational status: retired and disabled 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 [employer] How many Children do You have: 3 Other Information That Helps Us Care for You: No Feels Safe at Home: Yes Safety Concerns: Feels Safe At This Time caffeine: Yes (Diet pepsi - 4 cans/day) Assistive Devices: Cane, Glasses and Oxygen - Continuous Review of Systems Review of Systems: As per HPI, all other systems reviewed and negative Physical Exam Physical Exam: GENERAL: Comfortable, morbidly obese, pleasant, no respiratory distress SKIN: Normal color, warm HEENT: [place] palpebral conjunctivae, no ptosis, dry buccal mucosa, nasal cannula in place NECK : Supple, short neck, no tenderness CHEST : Decreased breath sounds, no tenderness HEART : RRR, no obvious murmurs ABDOMEN: Some distention, nontender EXTREMITIES : No LE swelling, no LE tenderness, no other conspicuous deformities noted NEUROLOGIC : Coherent, no facial asymmetry, no other gross focality Results & Data Results & Data Vital Signs (Past 12 Hours) Vital Signs Temp Pulse Resp BP Pulse Ox O2 Del Method O2 Flow Rate 01/18/23 22:20 72 19 91 01/18/23 22:10 68 19 91 01/18/23 22:00 72 14 92 01/18/23 22:00 150/83 H 01/18/23 21:50 67 20 134/77 90 01/18/23 21:40 65 20 89 L 01/18/23 21:30 66 21 89 L 01/18/23 21:20 74 14 88 L 01/18/23 21:12 68 L 01/18/23 21:01 65 19 92 01/18/23 21:01 179/84 H 01/18/23 21:00 65 15 93 01/18/23 20:50 64 16 91 01/18/23 20:40 66 20 90 01/18/23 20:30 74 21 88 L 01/18/23 20:30 140/71 01/18/23 20:29 78 18 83 L 01/18/23 20:10 69 14 89 L 01/18/23 20:01 73 19 87 L 01/18/23 20:01 146/112 H 01/18/23 20:00 73 17 90 01/18/23 19:50 73 20 88 L 01/18/23 19:40 71 22 90 01/18/23 19:30 69 25 H 90 01/18/23 19:30 150/75 H 01/18/23 19:24 153/84 H 01/18/23 19:24 73 22 89 L 01/18/23 19:21 78 22 90 01/18/23 20:08 146/112 H 01/18/23 20:05 Nasal Cannula 4 01/18/23 20:05 90 Nasal Cannula 4 01/18/23 19:20 76 01/18/23 19:10 36.6 C 79 24 162/75 H 88 L Nasal Cannula 4 Laboratory Results Laboratory Results WBC 11.38 K/ul (4.8-10.8) H 01/18/23 19:25 RBC 3.84 M/uL (4.20-5.40) L 01/18/23 19:25 Hgb 11.4 g/dl (12.0-16.0) L 01/18/23 19:25 POC Hgb 11.9 g/dl (12.0-16.0) L 01/18/23 20:11 Hct 37.0 % (37.0-47.0) 01/18/23 19:25 POC Hct 35 % (37-47) L 01/18/23 20:11 MCV 96.4 fL (80.0-100.0) 01/18/23 19:25 MCH 29.7 pg (25.0-34.0) 01/18/23 19:25 MCHC 30.8 g/dL (32.0-36.0) L 01/18/23 19:25 RDW Std Deviation 51.7 fL (36.4-46.3) H 01/18/23 19:25 RDW Coeff of Naa 14.6 % (11.5-14.5) H 01/18/23 19:25 Plt Count 305 K/uL (130-400) 01/18/23 19:25 MPV 10.5 fL (9.4-12.4) 01/18/23 19:25 Immature Gran % (Auto) 1.1 % 01/18/23 19:25 Neut % (Auto) 79.1 % 01/18/23 19:25 Lymph % (Auto) 10.4 % 01/18/23 19:25 [place] % (Auto) 6.2 % 01/18/23 19:25 Eos % (Auto) 2.7 % 01/18/23 19:25 Baso % (Auto) 0.5 % 01/18/23 19:25 Neut # (Auto) 8.99 K/uL (1.40-6.50) H 01/18/23 19:25 Lymph # (Auto) 1.18 K/uL (1.2-3.4) L 01/18/23 19:25 [place] # (Auto) 0.71 K/uL (0.11-0.59) H 01/18/23 19:25 Eos # (Auto) 0.31 K/uL (0-0.50) 01/18/23 19:25 Baso # (Auto) 0.06 K/uL (0-0.2) 01/18/23 19:25 Immature Gran # (Auto) 0.13 K/uL (0.01-0.20) 01/18/23 19:25 POC Sodium 140 mmol/L (135-144) 01/18/23 20:11 Sodium 138 mmol/L (136-145) 01/18/23 19:25 POC Potassium 4.2 mmol/L (3.3-5.0) 01/18/23 20:11 Potassium 4.2 mmol/L (3.5-5.1) 01/18/23 19:25 POC Chloride 100 mmol/L (101-112) L 01/18/23 20:11 Chloride 100 mmol/L (98-107) 01/18/23 19:25 Carbon Dioxide 30 mmol/L (21-32) 01/18/23 19:25 POC Total CO2 28 mmol/L (24-31) 01/18/23 20:11 Anion Gap 8 (3-11) 01/18/23 19:25 POC Anion Gap 17.0 mmol/L (16-25) 01/18/23 20:11 POC BUN 15 mg/dl (7-18) 01/18/23 20:11 BUN 17 mg/dl (6-23) 01/18/23 19:25 Creatinine 0.48 mg/dl (0.6-1.2) L 01/18/23 19:25 POC Creatinine 0.5 mg/dl (0.6-1.3) L 01/18/23 20:11 Est Cr Clr Drug Dosing Not Reportable 01/18/23 19:25 Est GFR ( Amer) 119.3 ml/min 01/18/23 19:25 Est GFR (Non-Af Amer) 102.9 ml/min 01/18/23 19:25 BUN/Creatinine Ratio 35.4 (10-20) H 01/18/23 19:25 Glucose 106 mg/dl (70-99(Fasting)) H 01/18/23 19:25 POC Glucose (other) 109 mg/dl (70-99) H 01/18/23 20:11 Calcium 9.3 mg/dl (8.6-10.3) 01/18/23 19:25 POC Ioniz Calcium Dandy 1.14 mmol/l (1.12-1.32) 01/18/23 20:11 Magnesium 1.8 mg/dl (1.7-2.4) 01/18/23 19:25 Total Bilirubin 0.3 mg/dl (0.2-1.0) 01/18/23 19:25 AST 17 U/L (13-39) 01/18/23 19:25 ALT 19 U/L (7-52) 01/18/23 19:25 Alkaline Phosphatase 106 U/L (34-104) H 01/18/23 19:25 Troponin I High Sens 6.4 pg/ml (0-14) 01/18/23 19:25 B-Natriuretic Peptide 51 pg/ml (0-100) 01/18/23 19:25 Total Protein 7.4 gm/dl (6.0-8.3) 01/18/23 19:25 Albumin 4.2 gm/dl (3.4-5.0) 01/18/23 19:25 Globulin 3.2 gm/dl (2.5-4.0) 01/18/23 19:25 Albumin/Globulin Ratio 1.3 (0.9-2) 01/18/23 19:25 Lipase 118 U/L (11-82) H 01/18/23 19:25 Procalcitonin < 0.05 ng/ml (0-0.5) 01/18/23 19:43 Adenovirus (PCR) Not Detected (NotDetected) 01/18/23 19:52 B. pertussis DNA (PCR) Not Detected (NotDetected) 01/18/23 19:52 B.parapertussis DNA PCR Not Detected (NotDetected) 01/18/23 19:52 C. pneumoniae DNA (PCR) Not Detected (NotDetected) 01/18/23 19:52 Coronavirus OC43 (PCR) Not Detected (NotDetected) 01/18/23 19:52 Coronavirus HKU1 (PCR) Not Detected (NotDetected) 01/18/23 19:52 Coronavirus 229E (PCR) Not Detected (NotDetected) 01/18/23 19:52 SARS-CoV-2 (PCR) Not Detected (NotDetected) 01/18/23 19:52 Coronavirus NL63 (PCR) Not Detected (NotDetected) 01/18/23 19:52 Human Metapneumovir PCR Not Detected (NotDetected) 01/18/23 19:52 Influenza Type A (PCR) Not Detected (NotDetected) 01/18/23 19:52 Influenza Type B (PCR) Not Detected (NotDetected) 01/18/23 19:52 M. pneumoniae (PCR) Not Detected (NotDetected) 01/18/23 19:52 Parainfluenza 1 (PCR) Not Detected (NotDetected) 01/18/23 19:52 Parainfluenza 2 (PCR) Not Detected (NotDetected) 01/18/23 19:52 Parainfluenza 3 (PCR) Not Detected (NotDetected) 01/18/23 19:52 Parainfluenza 4 (PCR) Not Detected (NotDetected) 01/18/23 19:52 RSV (PCR) Not Detected (NotDetected) 01/18/23 19:52 Entero/Rhino (PCR) Not Detected (NotDetected) 01/18/23 19:52 Impressions Chest CTA 01/18/23 19:38 Exam(s): CTA CHEST IV Amt: 114ml EXAM: CT Angiography Chest With Intravenous Contrast CLINICAL HISTORY: Reason for exam: sob, metastatic lung ca, r/o PE. TECHNIQUE: Axial computed tomographic angiography images of the chest with intravenous contrast. CTDI is 41 mGy and DLP is 802.71 mGy-cm. Automated exposure control was utilized for the study. A dose lowering technique was utilized adhering to the principles of ALARA. MIP reconstructed images were created and reviewed. COMPARISON: No relevant prior studies available. FINDINGS: Pulmonary arteries: Unremarkable. No acute pulmonary embolism. Aorta: Non-aneurysmal aorta. Atherosclerotic changes of the aorta. Lungs: Airspace consolidation at the RIGHT lung base, concerning for aspiration pneumonia. Mild-moderate RIGHT parapneumonic effusion. Pleural space: Unremarkable. No significant effusion. No pneumothorax. Heart: Cardiomegaly. No pericardial effusion. No evidence of RV dysfunction. Bones/joints: Degenerative changes of the spine. No acute fracture. No dislocation. Soft tissues: Unremarkable. Lymph nodes: Unremarkable. No enlarged lymph nodes. IMPRESSION: 1. No acute pulmonary embolism. 2. Airspace consolidation at the RIGHT lung base, concerning for aspiration pneumonia. Mild-moderate RIGHT parapneumonic effusion. Electronically signed by: Duy Gary MD 01/18/23 21:04 PM Diagnostic Findings EKG as per my interpretation : Rate 70, NSR, normal axis, T wave abnormalities anteroseptal leads
[2023-01-18] MEDS ORDERED: SODIUM CHLORIDE 0.9% 1000ML 1,000 ML IV ONE (22:32)
[2023-01-18] MEDS ORDERED: AMPICILLIN/SULBACTAM SOD 3,000 MG in 0.9 % SODIUM CHLORIDE 100 ML IV STA (22:32)
[2023-01-18] MEDS ORDERED: THIAMINE HCL 100 MG in SYRINGE 9 ML IV STA (22:37)
[2023-01-18 23:03] LABS: Base Excess ABG 7.8 mEq/L (-9-1.8); HCO3 ABG 34 mmol/L (19-24); Oxygen Saturation ABG 91.9 % (90-95); PCO2 ABG 54 mmHg (35-46); PO2 ABG 63 mmHg (80-95); pH ABG 7.41 (7.35-7.45)
[2023-01-18 23:04] LABS: Allen Test Pos (Pos)
[2023-01-18] MEDS ORDERED: GLUCOSE 10 TAB/TUBE PO PRN (23:39)
[2023-01-18] MEDS ORDERED: CARBOHYDRATES FOR HYPOGLYCEMIA PO PRN (23:39)
[2023-01-18] MEDS ORDERED: PROMETHAZINE HCL 12.5 MG in SODIUM CHLORIDE 0.9% 50 ML IV PRN (23:39)
[2023-01-18] MEDS ORDERED: LORazepam 2 MG/1 ML VIAL IV PRN (23:39)
[2023-01-18] MEDS ORDERED: LANTUS PER UNIT CHARGE SQ SCH (23:39)
[2023-01-18] MEDS ORDERED: GLUCAGON FOR INJ 1 MG VIAL SQ PRN (23:39)
[2023-01-18] MEDS ORDERED: DEXTROSE 50% 50 ML SYRINGE IV PRN (23:39)
[2023-01-18] MEDS ORDERED: GLUCOSE 40% GEL 15 GM TUBE PO PRN (23:39)
[2023-01-19] MEDS ORDERED: LEVALBUTEROL HCL 0.63 MG/3 ML NEB ONE (00:06)
[2023-01-19] MEDS: IPRATROPIUM BROMIDE NEB SOLN 0.02% 2.5 ML VIAL INH SCH ×4 (00:08→18:58)
[2023-01-19] MEDS: LEVALBUTEROL 1.25MG/0.5ML NEB INH SCH ×4 (00:11→19:01)
[2023-01-19] MEDS: INSULIN ASPART PER UNIT CHARGE SC SCH ×5 (00:19→21:36)
[2023-01-19] MEDS ORDERED: XOPENEX/ATROVENT 1.25mg/0.5MG NEB COMBO NEB SCH (01:00)
[2023-01-19] MEDS: LEVOTHYROXINE SODIUM 150 MCG TABLET PO SCH (06:03)
[2023-01-19 06:37] LABS: Hematocrit (blood only) 36.9 % (37.0-47.0); Hemoglobin 11.6 g/dl (12.0-16.0); Mean Corpuscular Hgb Conc 31.4 g/dL (32.0-36.0); Mean Corpuscular Volume 95.3 fL (80.0-100.0); Mean Platelet Volume 10.8 fL (9.4-12.4); Platelet Count 287 K/uL (130-400); RDW Coefficient of Variation 14.5 % (11.5-14.5); RDW Standard Deviation 50.7 fL (36.4-46.3); Red Blood Count 3.87 M/uL (4.20-5.40); White Blood Count 15.36 K/ul (4.8-10.8)
[2023-01-19] MEDS ORDERED: PIPERACILLIN/TAZOBACTAM 4.5 GM (over 30 mins) IV ONE (06:45)
[2023-01-19 06:49] LABS: Calcium 8.7 mg/dl (8.6-10.3); Creatinine Clr Calc Pharmacy 120.3 ml/min; Est GFR (African American) 117.7 ml/min; Est GFR (Non-African American) 101.6 ml/min; Potassium 4.3 mmol/L (3.5-5.1)
[2023-01-19 07:05] LABS: Basophils # (auto) 0.06 K/uL (0-0.2); Basophils % (auto) 0.4 %; Eosinophils # (auto) 0.04 K/uL (0-0.50); Eosinophils % (auto) 0.3 %; Immature Granulocytes # (auto) 0.33 K/uL (0.01-0.20); Immature Granulocytes % (auto) 2.1 %; Lymphocytes # (auto) 0.47 K/uL (1.2-3.4); Lymphocytes % (auto) 3.1 %; Monocytes # (auto) 0.12 K/uL (0.11-0.59); Monocytes % (auto) 0.8 %; Neutrophils # (auto) 14.34 K/uL (1.40-6.50); Neutrophils % (auto) 93.3 %; Polychromasia 1+
--- NOTE | 2023-01-19 07:25 | Pulmonary Consultation ---
Date of Consultation January 19, 2023 History of Present Illness Attending Physician: Jose Brito MD Allergies Allergy/AdvReac Type Severity Reaction Status Date / Time tetracycline AdvReac Mild HEADACHE Verified 01/18/23 20:12 Home Medications Medication Instructions Recorded Confirmed Type aspirin 81 mg tablet,delayed 81 mg PO QAM 01/13/19 01/18/23 History release furosemide 40 mg tablet (Lasix) 40 mg PO QAM #30 tabs 01/16/19 01/18/23 Rx Black Elderberry 1 tab PO QAM 03/18/21 01/18/23 History amlodipine 2.5 mg tablet 2.5 mg PO DAILY 03/18/21 01/18/23 History ezetimibe 10 mg tablet 10 mg PO DAILY 03/18/21 01/18/23 History metformin 500 mg tablet 500 mg PO BIDM 03/18/21 01/18/23 History albuterol sulfate 90 mcg/actuation 2 puff inhalation Q4 PRN Wheezing 03/19/22 01/18/23 History aerosol inhaler (Ventolin HFA) levothyroxine 150 mcg tablet 150 mcg PO QAM 10/24/22 01/18/23 History turmeric 400 mg capsule 400 mg PO DAILY 10/24/22 01/18/23 History potassium chloride 10 mEq 10 meq PO DAILY #30 tabs 10/30/22 01/18/23 Rx tablet,extended release metoprolol succinate 25 mg 12.5 mg PO BID 12/02/22 01/18/23 History tablet,extended release 24 hr fluticasone fur. 100 mcg-umeclid 1 inh inhalation DAILY 01/03/23 01/18/23 History 62.5 mcg-vilant 25 mcg inhalat.powder (Trelegy Ellipta) pravastatin 20 mg tablet 20 mg PO HS 01/03/23 01/18/23 History Patient History Medical History Alcohol use CAD (coronary artery disease) NSTEMI 2008 - moderate nonobstructive disease, no stenting Carotid stenosis Chronic diastolic (congestive) heart failure Chronic respiratory failure with hypoxia Constipation COPD, group D, by GOLD 2017 classification Diabetes mellitus, type II HLD (hyperlipidemia) HTN (hypertension) Hypothyroid Metastatic lung cancer (metastasis from lung to other site) (12/11/22) Obesity (BMI 30.0-34.9) BHAVIK on CPAP Primary cancer of right lower lobe of lung (01/31/22) s/p radiation Surgical History S/P cholecystectomy Family History Mother , age 69 Heart disease Rheumatoid arthritis Osteoarthritis Father , age 69 Myocardial infarction Asthma COPD (chronic obstructive pulmonary disease) Sister , age 29 Lung disease Other Diabetes Social History Smoking Status: Former smoker Tobacco Type: Cigarettes Age Started Using Tobacco: 18; Age Quit Using Tobacco: 60; packs per day: 2; Second Hand Exposure: No; Do You Dip or Chew Tobacco: No; Hx Alcohol Use: Yes Alcohol type: beer Alcohol type Comment: 3-5 coors light daily Alcohol Intake Frequency: 4 or More x per/Week Hx Substance Use: No Preferred Language: Singaporean Communication Ability: Effective Adzing And Boring Machine Operator Required: No Beliefs That Will Affect Care: None marital status: / Current Living Situation: Alone current occupational status: retired and disabled 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 [employer] How many Children do You have: 3 Other Information That Helps Us Care for You: No Feels Safe at Home: Yes Safety Concerns: Feels Safe At This Time caffeine: Yes (Diet pepsi - 4 cans/day) Assistive Devices: Cane, Glasses and Oxygen - Continuous Results & Data Results & Data Vital Signs (Past 12 Hours) Vital Signs Temp Pulse Pulse Resp BP BP BP 01/19/23 07:17 83 14 01/19/23 02:56 37.1 C 85 18 110/66 01/18/23 23:40 75 01/18/23 23:15 01/18/23 23:15 36.6 C 75 20 153/83 H 01/19/23 00:11 70 18 01/18/23 23:05 73 18 01/18/23 22:20 72 19 01/18/23 22:10 68 19 01/18/23 22:00 72 14 01/18/23 22:00 150/83 H 01/18/23 21:50 67 20 134/77 01/18/23 21:40 65 20 01/18/23 21:30 66 21 01/18/23 21:20 74 14 01/18/23 21:12 01/18/23 21:01 65 19 01/18/23 21:01 179/84 H 01/18/23 21:00 65 15 01/18/23 20:50 64 16 01/18/23 20:40 66 20 01/18/23 20:30 74 21 01/18/23 20:30 140/71 01/18/23 20:29 78 18 01/18/23 20:10 69 14 01/18/23 20:01 73 19 01/18/23 20:01 146/112 H 01/18/23 20:00 73 17 01/18/23 19:50 73 20 01/18/23 19:40 71 22 01/18/23 19:30 69 25 H 01/18/23 19:30 150/75 H 01/18/23 20:08 146/112 H 01/18/23 20:05 01/18/23 20:05 Pulse Ox O2 Del Method O2 Flow Rate 01/19/23 07:17 97 Nasal Cannula 5 01/19/23 02:56 90 CPAP 5 01/18/23 23:40 01/18/23 23:15 Nasal Cannula 5 01/18/23 23:15 90 Nasal Cannula 5 01/19/23 00:11 93 Nasal Cannula 4.5 01/18/23 23:05 92 Nasal Cannula 4 01/18/23 22:20 91 01/18/23 22:10 91 01/18/23 22:00 92 01/18/23 22:00 01/18/23 21:50 90 01/18/23 21:40 89 L 01/18/23 21:30 89 L 01/18/23 21:20 88 L 01/18/23 21:12 68 L 01/18/23 21:01 92 01/18/23 21:01 01/18/23 21:00 93 01/18/23 20:50 91 01/18/23 20:40 90 01/18/23 20:30 88 L 01/18/23 20:30 01/18/23 20:29 83 L 01/18/23 20:10 89 L 01/18/23 20:01 87 L 01/18/23 20:01 01/18/23 20:00 90 01/18/23 19:50 88 L 01/18/23 19:40 90 01/18/23 19:30 90 01/18/23 19:30 01/18/23 20:08 01/18/23 20:05 Nasal Cannula 4 01/18/23 20:05 90 Nasal Cannula 4 PG Care Time/CCT Total # of Minutes Spent Total Time Spent with Patient: Total time spent is greater than 50% in coordination of care (as documented) at patient's floor/unit and/or counseling patient: Coding Diagnoses
[2023-01-19] MEDS ORDERED: AMOXICILLIN/CLAVULANATE 875 MG TAB PO SCH (08:00)
[2023-01-19] MEDS: THIAMINE HCL 100 MG TAB PO SCH (08:11)
[2023-01-19] MEDS: ENOXAPARIN INJ 40 MG/0.4 ML SYR SQ SCH (08:11)
[2023-01-19] MEDS: MULTIVITAMIN TAB PO SCH (08:12)
[2023-01-19] MEDS: FOLIC ACID 1 MG TAB PO SCH (08:12)
[2023-01-19] MEDS: METOPROLOL SUCC 25MG EXT REL TAB PO SCH ×2 (08:12→21:35)
[2023-01-19] MEDS: amLODIPine BESYLATE 5 MG TAB PO SCH (08:12)
[2023-01-19] MEDS: ASPIRIN 81 MG ECTAB PO SCH (08:13)
[2023-01-19] MEDS: FLUTICASONE FUROATE 100MCG 14 PUFFS/INHALER INH SCH (08:13)
[2023-01-19] MEDS: EZETIMIBE 10 MG TABLET PO SCH (08:13)
[2023-01-19] MEDS: UMECLIDINIUM/VILANTEROL 62.5/25MCG 7 PUFFS/INHALER INH SCH (08:14)
[2023-01-19] MEDS: LANTUS PER UNIT CHARGE SQ SCH ×2 (08:25→21:37)
[2023-01-19] MEDS ORDERED: NON-FORMULARY MEDICATION (Fluticasone-Umeclidin-Vilanter [Trelegy Ellipta] 100-62.5-25 mcg INH SCH (09:00)
[2023-01-19] MEDS ORDERED: predniSONE 20 MG TAB PO SCH (09:00)
--- NOTE | 2023-01-19 09:02 | Pulmonary Consultation ---
Date of Consultation January 19, 2023 Assessment & Plan (1) Acute and chronic respiratory failure with hypoxia: (2) Pleural effusion, right: (3) Metastatic lung cancer (metastasis from lung to other site): (4) CHF (congestive heart failure): Heart failure chronicity: acute on chronic Heart failure type: unspecified Qualified Code(s): I50.9 - Heart failure, unspecified (5) COPD (chronic obstructive pulmonary disease): Plan IMPRESSION: 67-year-old female with metastatic adenocarcinoma of the lung presenting with acute on chronic hypoxic respiratory failure in the setting of RIGHT-sided pleural effusion and concerning CT findings in the RIGHT lower lobe. RECOMMENDATIONS: 1. Acute on chronic hypoxic respiratory failure - * Patient utilizing 4 L now compared to her home 3 L. * Likely multifactorial in the setting of the COPD patient with CHF, pleural effusion, and lung CA. * On review of chest CT, her films look more consistent with her underlying primary lung lesion as this has been seen and present during previous CTA imaging studies dating back to October of this year. * She provides no historical information concerning for pneumonia including fevers, productive cough, or aspiration events otherwise. * Procalcitonin negative. * Recommend obtaining sputum cultures if possible. * Continue antibiotics for now, but would have a low threshold for discontinuing antibiotics sooner rather than later. 2. RIGHT-sided pleural effusion - * Relatively unchanged from prior admissions. * Likely representing malignant effusion from primary lung lesion on the same si de. * Discussed performing thoracentesis to attempt to provide the patient with symptomatic relief, however she denies complaints of pleuritic pain or significant dyspnea with exertion. * Characterization of the fluid is likely not going to be very helpful as recent diagnosis of metastatic disease was made with liver lesion biopsy. Regardless, patient may benefit from therapeutic removal of fluid we certainly would characterize this at least 1 time. * Patient is hesitant as she has been in the past. We will discuss this again tomorrow. Would defer to interventional radiology for thoracentesis in this patient. * Would continue with the patient's Lasix dosing for now. Would not escalate dosing as the effusion appears relatively stable from last hospitalization. 3. Metastatic adenocarcinoma of the lung - * Patient to have follow-up appointment with oncology on Thursday to establish goals of care moving forward as well as treatment options. * Will defer to oncology for treatment plan moving forward. 4. CHF - * Continue current Lasix dosing. 5. COPD - * Patient can continue her Xopenex, Atrovent, and Anoro inhalers. * She is not bronchospastic on exam today to suggest symptoms consistent with COPD exacerbation. * Uncertain as to the utility of Prednisone dosing at this time. Likely more contributing to the patient's demargination picture on CBC. 6. BHAVIK - * Continue to utilize home CPAP settings. Thank you for allowing us to participate in the care of this patient. We will continue to follow along during the patient's hospitalization. Supervising Physician Co-Signing Physician Notes I saw and evaluated the patient with Jc Anthony PA-C, and agree with findings and plan as documented in the note. 67-year-old female with past medical history of adenocarcinoma of the right lower lobe s/p SBRT presented to the hospital with complaints of shortness of breath Past medical history: Dyslipidemia, hypothyroidism, diabetes, BHAVIK on CPAP Is chronically on 3 L nasal cannula at rest. Patient seen and examined at bedside. No acute distress, no adverse events overnight Patient was saturating 92 L on 4 L nasal cannula, I went down to 4 L She denies any pleuritic chest pain She has been coughing lately but denies any diarrhea No hemoptysis No dysuria She has been compliant with her inhalers. Constitutional: No acute distress HEENT: EOMI, PERRLA Respiratory system: Decreased air entry on the right side, no wheeze, no rhonchi, positive crackles bilateral lower lobes CVS: S1-S2 positive, no murmurs or gallops Abdomen: Soft, nontender, nondistended, positive bowel sounds x4, obese Extremities: +2 pulses bilaterally radialis/ dorsalis pedis, no cyanosis, +1 pitting edema bilateral lower extremity Neuro: Awake alert oriented x3 Psych: Normal mood and affect G/U: No Dominguez Plan: CT chest shows right lower lobe opacities. They have been present since October of this year Patient had right lower lobe adenocarcinoma s/p SBRT approximately a year ago. She had a liver biopsy recently which showed metastatic adenocarcinoma I personally think the opacities in the right lower lobe are worsening of underlying adenocarcinoma of the lung rather than pneumonia Patient does have fluid on the right side which is moderate. I am not sure if it is playing any role in her shortness of breath Spoke to the patient regarding thoracentesis. She is going to think about it and let us know. Recommend MRI of the brain Palliative care consult while in the hospital could be thought of all the patient is good to follow-up with oncology coming Thursday. Please note the above document was generated using voice recognition software. It may contain grammatical, syntax or spelling errors.Any formal questions or concerns about the content, text or information contained within the body of this dictation should be directly addressed to the provider for clarification. History of Present Illness Reason for Consultation: complicated pneumonia Requesting Physician: Dr. Christensen Attending Physician: Jose Brito MD History of Present Illness Patient is a 67-year-old female with a significant past medical history of hypothyroidism, hyperlipidemia, carotid stenosis, coronary artery disease, obesity, diabetes, COPD, hypertension, obstructive sleep apnea, CHF, chronic hypoxemic respiratory failure, and metastatic lung cancer. The patient utilizes 3 L nasal cannula at all times. She uses her CPAP "religiously" on a nightly basis. The patient was recently hospitalized for acute on chronic hypoxic respiratory failure in the setting of worsening bilateral pleural effusions. These did resolve with escalating doses of intravenous Lasix. During her previous hospitalization, she underwent liver biopsy to evaluate suspicious lesions noted during PET/CT. Findings consistent with metastatic adenocarcinoma consistent with primary lung disease. The patient has a follow-up appointment on Thursday with oncology to schedule plan moving forward. The patient had previously been diagnosed and managed for a primary lung malignancy approximately 1 year ago for which she was treated with 5 courses of stereotactic radiation therapy alone. Unfortunately, the patient reports that she was having increasing shortness of breath at home as well as increasing oxygen requirement. She states that she had to turn her oxygen up to 4 L to maintain her saturations in the low 90s. She states that she was in the high 80s on 3 L, but concern to her was her degree of shortness of breath with any ambulation. This had escalated over the past week since being discharged. She reports no new symptoms otherwise. Specifically, she denies a productive cough, fevers, chills, hemoptysis, headaches, dizziness, lightheadedness, chest pain, palpitations, or pleuritic pain. Allergies Allergy/AdvReac Type Severity Reaction Status Date / Time tetracycline AdvReac Mild HEADACHE Verified 01/18/23 20:12 Home Medications Medication Instructions Recorded Confirmed Type aspirin 81 mg tablet,delayed 81 mg PO QAM 05/02/19 05/07/23 History release furosemide 40 mg tablet (Lasix) 40 mg PO QAM #30 tabs 01/16/19 01/18/23 Rx Black Elderberry 1 tab PO QAM 03/18/21 01/18/23 History amlodipine 2.5 mg tablet 2.5 mg PO DAILY 03/18/21 01/18/23 History ezetimibe 10 mg tablet 10 mg PO DAILY 03/18/21 01/18/23 History metformin 500 mg tablet 500 mg PO BIDM 03/18/21 01/18/23 History albuterol sulfate 90 mcg/actuation 2 puff inhalation Q4 PRN Wheezing 03/19/22 01/18/23 History aerosol inhaler (Ventolin HFA) levothyroxine 150 mcg tablet 150 mcg PO QAM 10/24/22 01/18/23 History turmeric 400 mg capsule 400 mg PO DAILY 10/24/22 01/18/23 History potassium chloride 10 mEq 10 meq PO DAILY #30 tabs 10/30/22 01/18/23 Rx tablet,extended release metoprolol succinate 25 mg 12.5 mg PO BID 12/02/22 01/18/23 History tablet,extended release 24 hr fluticasone fur. 100 mcg-umeclid 1 inh inhalation DAILY 01/03/23 01/18/23 History 62.5 mcg-vilant 25 mcg inhalat.powder (Trelegy Ellipta) pravastatin 20 mg tablet 20 mg PO HS 01/03/23 01/18/23 History Patient History Medical History Alcohol use CAD (coronary artery disease) NSTEMI 2008 - moderate nonobstructive disease, no stenting Carotid stenosis Chronic diastolic (congestive) heart failure Chronic respiratory failure with hypoxia Constipation COPD, group D, by GOLD 2017 classification Diabetes mellitus, type II HLD (hyperlipidemia) HTN (hypertension) Hypothyroid Metastatic lung cancer (metastasis from lung to other site) (12/11/22) Obesity (BMI 30.0-34.9) BHAVIK on CPAP Primary cancer of right lower lobe of lung (01/31/22) s/p radiation Surgical History S/P cholecystectomy Family History Mother , age 69 Heart disease Rheumatoid arthritis Osteoarthritis Father , age 69 Myocardial infarction Asthma COPD (chronic obstructive pulmonary disease) Sister , age 29 Lung disease Other Diabetes Social History Smoking Status: Former smoker Tobacco Type: Cigarettes Age Started Using Tobacco: 18; Age Quit Using Tobacco: 60; packs per day: 2; Second Hand Exposure: No; Do You Dip or Chew Tobacco: No; Hx Alcohol Use: Yes Alcohol type: beer Alcohol type Comment: 3-5 coors light daily Alcohol Intake Frequency: 4 or More x per/Week Hx Substance Use: No Preferred Language: Citizen Of [place] Communication Ability: Effective Spray Applicator Required: No Beliefs That Will Affect Care: None marital status: / Current Living Situation: Alone current occupational status: retired and disabled 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 All else were negative. Physical Exam Physical Exam: VITAL SIGNS - Vital signs and nursing notes were reviewed. GENERAL - 67-year-old female appearing her stated age who is in no acute distress. Communicates well with provider and answers questions appropriately. SKIN - Without rashes or lesions. NOSE - Midline and without cyanosis. No epistaxis or purulent drainage noted. MOUTH/OROPHARYNX - Without perioral cyanosis. Buccal mucosa pink and moist. NECK - Neck with FROM. LUNGS - Auscultation reveals diminished breath sounds at the bases, RIGHT > left. CARDIAC - RRR with S1/S2. No murmur, rubs, or gallops appreciated. ABDOMEN - Abdominal inspection demonstrates an obese abdomen. BS normoactive all four quadrants. No tenderness, palpable masses, or ascites noted. EXTREMITIES - Slight pretibial edema present. +3/5 radial palpated throughout. PSYCH - A&Ox3 and cooperates fully with examiner. Pt is very pleasant and interacts well with examiner. Results & Data Results & Data Vital Signs (Past 12 Hours) Vital Signs Temp Pulse Pulse Resp BP BP BP 01/19/23 07:41 36.4 C L 84 20 149/81 H 01/19/23 07:17 83 14 01/19/23 02:56 37.1 C 85 18 110/66 01/18/23 23:40 75 01/18/23 23:15 01/18/23 23:15 36.6 C 75 20 153/83 H 01/19/23 00:11 70 18 01/18/23 23:05 73 18 01/18/23 22:20 72 19 01/18/23 22:10 68 19 01/18/23 22:00 72 14 01/18/23 22:00 150/83 H 01/18/23 21:50 67 20 134/77 01/18/23 21:40 65 20 01/18/23 21:30 66 21 01/18/23 21:20 74 14 01/18/23 21:12 01/18/23 21:01 65 19 01/18/23 21:01 179/84 H 01/18/23 21:00 65 15 01/18/23 20:50 64 16 01/18/23 20:40 66 20 Pulse Ox O2 Del Method O2 Flow Rate 01/19/23 07:41 90 Nasal Cannula 5 01/19/23 07:17 97 Nasal Cannula 5 01/19/23 02:56 90 CPAP 5 01/18/23 23:40 01/18/23 23:15 Nasal Cannula 5 01/18/23 23:15 90 Nasal Cannula 5 01/19/23 00:11 93 Nasal Cannula 4.5 01/18/23 23:05 92 Nasal Cannula 4 01/18/23 22:20 91 01/18/23 22:10 91 01/18/23 22:00 92 01/18/23 22:00 01/18/23 21:50 90 01/18/23 21:40 89 L 01/18/23 21:30 89 L 01/18/23 21:20 88 L 01/18/23 21:12 68 L 01/18/23 21:01 92 01/18/23 21:01 01/18/23 21:00 93 01/18/23 20:50 91 01/18/23 20:40 90 PG Care Time/CCT Total # of Minutes Spent Total Time Spent with Patient: Total time spent is greater than 50% in coordination of care (as documented) at patient's floor/unit and/or counseling patient: Coding Level of Care Code 47479 INT INP/OBS CARE 3/75MIN Diagnoses Acute and chronic respiratory failure with hypoxia J96.21 Pleural effusion, right J90 Metastatic lung cancer (metastasis from lung to other site) C34.90 CHF (congestive heart failure) I50.9 Heart failure chronicity: acute on chronic Heart failure type: unspecified COPD (chronic obstructive pulmonary disease) J44.9
[2023-01-19] MEDS: FUROSEMIDE 40 MG TAB PO SCH (10:21)
[2023-01-19] MEDS ORDERED: LEVALBUTEROL 1.25 MG/3 ML NEB ONE ×3 (13:22→23:58)
[2023-01-19] MEDS: PIPERACILLIN/TAZOBACTAM 4.5 GM in DEXTROSE 5% 100 ML IV SCH ×2 (13:37→21:34)
[2023-01-19] MEDS: ACETAMINOPHEN 325 MG TAB PO PRN (13:44)
--- NOTE | 2023-01-19 14:24 | Hospitalist Progress Note ---
Date of Service January 19, 2023 Assessment & Plan (1) Acute and chronic respiratory failure with hypercapnia: Plan: Acute on chronic respiratory failure with hypoxia and hypercapnia Chronic oxygen dependency--on 3 L at baseline Multifactorial secondary to COPD, CHF, pleural effusion, lung cancer, suspected postobstructive pneumonia, BHAVIK Likely malignant pleural effusion Past tobacco abuse No signs of COPD exacerbation --CTA:No acute pulmonary embolism. Airspace consolidation at the RIGHT lung base, concerning for aspiration pneumonia. Mild-moderate RIGHT parapneumonic effusion. Right pleural effusion is essentially unchanged in size from prior exam. Pulmonary nodules are unchanged. Osseous metastatic disease again noted. --Biofire: Negative -- Normal procalcitonin, lactate --Blood cultures pending Right pleural effusion unchanged from prior CT Continue supplemental oxygen as needed Continue IV antibiotics for now Obtain sputum culture Consider thoracentesis if patient agrees Continue Lasix Continue home inhalers Appreciate pulmonary input Metastatic lung cancer Liver biopsy consistent with Metastatic adenocarcinoma consistent with lung primary S/P radiation We will obtain MRI brain to rule out brain metastasis Follows with oncology as outpatient Chronic diastolic heart failure -ECHO 10/19/22:EF 55 to 60%. Mild concentric LVH. Grade 1 diastolic dysfunction. Mild tricuspid regurgitation. Continue home diuretics Monitor volume status H/O CAD/PVD hypertension Hypertension Hyperlipidemia Continue home medication DM II Last HbA1c 6.0 Continue insulin while hospitalized Monitor blood glucose levels Hypothyroidism Normal TSH Continue levothyroxine Anemia of chronic disease Hb at baseline Ongoing alcohol use disorder Monitor for withdrawal BHAVIK CPAP HS DVT Px: Lovenox SQ Code Status Full code Admission and Anticipated Discharge Date Admission Date: January 18, 2023 Subjective Patient is seen and examined at bedside States having dyspnea associated with intermittent cough Denies any chest pain, dizziness, nausea, abdominal pain Planned for paracentesis today Saturating well on 4 L supplemental oxygen Denies any issues with alcohol withdrawal Review of Systems Review of Systems: All systems reviewed & are unremarkable except as noted in Subjective Physical Exam Physical Exam: Physical Exam: Vitals signs as noted above General Appearance:Morbidly Obese, chronic ill appearing, no apparent distress Head: normocephalic, Atraumatic Eyes: normal inspection, EOMI Neck: supple, Trachea midline Respiratory/Chest: Decreased breath sounds at bases, No accessory muscle use Cardiovascular: S1, S2, No murmur Abdomen/GI:Soft, Non tender, Bowel sounds present Extremities/Musculoskeletal:normal inspection, 1+ pedal edema Neurologic/Psych:AAOX3, grossly no focal neurological deficits Skin: normal color, warm Results & Data Results & Data Vital Signs (Past 12 Hours) Vital Signs Temp Pulse Pulse Resp BP Pulse Ox O2 Del Method 01/19/23 13:26 75 H 95 Nasal Cannula 01/19/23 11:11 36.4 C L 86 20 149/70 H 90 Nasal Cannula 01/19/23 08:00 71 01/19/23 08:00 Nasal Cannula, CPAP 01/19/23 07:41 36.4 C L 84 20 149/81 H 90 Nasal Cannula 01/19/23 07:17 83 14 97 Nasal Cannula 01/19/23 02:56 37.1 C 85 18 110/66 90 CPAP O2 Flow Rate 01/19/23 13:26 4 01/19/23 11:11 4 01/19/23 08:00 01/19/23 08:00 5 01/19/23 07:41 5 01/19/23 07:17 5 01/19/23 02:56 5 Laboratory Results Short CBC 01/18/23 01/19/23 Range/Units 19:25 05:27 WBC 11.38 H 15.36 H (4.8-10.8) K/ul Hgb 11.4 L 11.6 L (12.0-16.0) g/dl Hct 37.0 36.9 L (37.0-47.0) % Plt Count 305 287 (130-400) K/uL BMP 01/18/23 01/19/23 19:25 05:27 Sodium 138 136 Potassium 4.2 4.3 Chloride 100 98 Carbon Dioxide 30 29 BUN 17 16 Creatinine 0.48 L 0.50 L Glucose 106 H 248 H Calcium 9.3 8.7 Liver Function 01/18/23 Range/Units 19:25 Total Bilirubin 0.3 (0.2-1.0) mg/dl AST 17 (13-39) U/L ALT 19 (7-52) U/L Alkaline Phosphatase 106 H (34-104) U/L Albumin 4.2 (3.4-5.0) gm/dl
[2023-01-19] MEDS ORDERED: GADOBUTROL 65ML VIAL IV ONE (15:48)
--- NOTE | 2023-01-19 16:15 | Magnetic Resonance Report ---
MR brain wo/w con CLINICAL HISTORY: Metastatic disease TECHNIQUE: Multiplanar and multisequence MR images of the brain were obtained prior to and following administration of gadolinium contrast. Comparison: Comparison is made to CT head 01/13/2019 FINDINGS: No abnormal restricted diffusion is identified. The white matter is unremarkable. The ventricular sys tem is normal in appearance. No mass or abnormal enhancement is seen. There is no mass effect or midl ine shift. There is no evidence of acute intraparenchymal hemorrhage. No extra axial fluid collection s are seen. The corpus callosum, pituitary gland, and cerebellar tonsils appear grossly unremarkable. Flow voids of the major intracranial arterial vessels are identified. The imaged portions of the para nasal sinuses, mastoid air cells, and orbits are unremarkable. IMPRESSION: No acute abnormality and in particular no evidence of metastatic disease. ACT 112: Negative or not required by law. Electronically signed by: Marco A Dozier M.D. 01/19/2023 4:14 PM
[2023-01-19] MEDS: PRAVASTATIN SOD 20 MG TAB PO SCH (21:36)
[2023-01-20] MEDS: LEVALBUTEROL 1.25MG/0.5ML NEB INH SCH ×4 (00:10→20:13)
[2023-01-20] MEDS: IPRATROPIUM BROMIDE NEB SOLN 0.02% 2.5 ML VIAL INH SCH ×4 (00:10→19:43)
[2023-01-20] MEDS: PIPERACILLIN/TAZOBACTAM 4.5 GM in DEXTROSE 5% 100 ML IV SCH ×3 (04:21→20:41)
[2023-01-20] MEDS: LEVOTHYROXINE SODIUM 150 MCG TABLET PO SCH (06:20)
[2023-01-20 06:47] LABS: Hematocrit (blood only) 34.6 % (37.0-47.0); Hemoglobin 10.9 g/dl (12.0-16.0); Mean Corpuscular Hemoglobin 29.9 pg (25.0-34.0); Mean Corpuscular Hgb Conc 31.5 g/dL (32.0-36.0); Mean Corpuscular Volume 94.8 fL (80.0-100.0); Mean Platelet Volume 10.1 fL (9.4-12.4); Platelet Count 278 K/uL (130-400); RDW Coefficient of Variation 14.6 % (11.5-14.5); RDW Standard Deviation 50.4 fL (36.4-46.3); Red Blood Count 3.65 M/uL (4.20-5.40); White Blood Count 13.17 K/ul (4.8-10.8)
[2023-01-20 06:59] LABS: BUN Creatinine Ratio 30.2 (10-20); Calcium 8.6 mg/dl (8.6-10.3); Creatinine Clr Calc Pharmacy 113.3 ml/min; Est GFR (African American) 115.5 ml/min; Est GFR (Non-African American) 99.6 ml/min; Magnesium 1.9 mg/dl (1.7-2.4); Potassium 3.7 mmol/L (3.5-5.1)
[2023-01-20] MEDS: amLODIPine BESYLATE 5 MG TAB PO SCH (08:10)
[2023-01-20] MEDS: THIAMINE HCL 100 MG TAB PO SCH (08:10)
[2023-01-20] MEDS: EZETIMIBE 10 MG TABLET PO SCH (08:10)
[2023-01-20] MEDS: FOLIC ACID 1 MG TAB PO SCH (08:11)
[2023-01-20] MEDS: ASPIRIN 81 MG ECTAB PO SCH (08:11)
[2023-01-20] MEDS: METOPROLOL SUCC 25MG EXT REL TAB PO SCH ×2 (08:11→20:33)
[2023-01-20] MEDS: FLUTICASONE FUROATE 100MCG 14 PUFFS/INHALER INH SCH (08:11)
[2023-01-20] MEDS: MULTIVITAMIN TAB PO SCH (08:11)
[2023-01-20] MEDS: FUROSEMIDE 40 MG TAB PO SCH (08:11)
[2023-01-20] MEDS: UMECLIDINIUM/VILANTEROL 62.5/25MCG 7 PUFFS/INHALER INH SCH (08:12)
[2023-01-20] MEDS: ENOXAPARIN INJ 40 MG/0.4 ML SYR SQ SCH (08:17)
[2023-01-20] MEDS: INSULIN ASPART PER UNIT CHARGE SC SCH ×4 (08:22→20:42)
[2023-01-20] MEDS: LANTUS PER UNIT CHARGE SQ SCH ×2 (09:12→20:42)
--- NOTE | 2023-01-20 11:47 | Pulmonology Progress Note ---
Date of Service January 20, 2023 Assessment & Plan (1) Acute and chronic respiratory failure with hypoxia: (2) Pleural effusion, right: (3) Metastatic lung cancer (metastasis from lung to other site): (4) CHF (congestive heart failure): Heart failure chronicity: acute on chronic Heart failure type: unspecified Qualified Code(s): I50.9 - Heart failure, unspecified (5) COPD (chronic obstructive pulmonary disease): Plan IMPRESSION: 67-year-old female with metastatic adenocarcinoma of the lung presenting with acute on chronic hypoxic respiratory failure in the setting of RIGHT-sided pleural effusion and concerning CT findings in the RIGHT lower lobe. RECOMMENDATIONS: 1. Acute on chronic hypoxic respiratory failure - * Remains on 4L NC at this time. This is near her baseline. * Likely multifactorial in the setting of the COPD patient with CHF, pleural effusion, and lung CA. * On review of chest CT, her films look more consistent with her underlying primary lung lesion as this has been seen and present during previous CTA imaging studies dating back to October of this year. * She provides no historical information concerning for pneumonia including fevers, productive cough, or aspiration events otherwise. * Procalcitonin negative. White count is trending down. Jump in WBCs from the time of admission likely representing demargination versus infectious re sponse. * Sputum cultures pending. * Continue antibiotics for now, but would have a low threshold for discontinuing antibiotics sooner rather than later. * Continue to encourage incentive spirometry. * Would encourage the patient to be out of bed and ambulating as tolerated as well. 2. RIGHT-sided pleural effusion - * Relatively unchanged from prior admissions. * Likely representing malignant effusion from primary lung lesion on the same side. * Patient is agreeable to thoracentesis after discussing this with her family. * Will consult IR for their assistance. She had a recent liver biopsy done with them and was happy with them. * We will see if this provides any symptomatic relief for the patient moving forward. * She was educated that the effusion could reaccumulate. Did not broach the subject of PleurX at this time. We will see how she does with thoracentesis. * Characterization of the fluid is likely not going to be very helpful as recent diagnosis of metastatic disease was made with liver lesion biopsy. Regardless, patient may benefit from therapeutic removal of fluid we certainly would characterize this at least 1 time. * Would continue with the patient's Lasix dosing for now. Would not escalate dosing as the effusion appears relatively stable from last hospitalization. 3. Metastatic adenocarcinoma of the lung - * Patient to have follow-up appointment with oncology on Thursday to establish goals of care moving forward as well as treatment options. * Will defer to oncology for treatment plan moving forward. 4. CHF - * Continue current Lasix dosing. 5. COPD - * Patient can continue her Xopenex, Atrovent, and Anoro inhalers. * She is not bronchospastic on exam today to suggest symptoms consistent with COPD exacerbation. * Uncertain as to the utility of Prednisone dosing at this time. Likely more contributing to the patient's demargination picture on CBC. 6. BHAVIK - * Continue to utilize home CPAP settings. Thank you for allowing us to participate in the care of this patient. We will continue to follow along during the patient's hospitalization. Admission and Anticipated Discharge Date Admission Date: January 18, 2023 Supervising Physician Co-Signing Physician Notes I saw and evaluated the patient with Jc Anthony PA-C, and agree with findings and plan as documented in the note. Patient seen and examined at bedside. No acute distress, no adverse events overnight Patient was on CPAP when I went to see her She stated that she is feeling the same. Has been coughing up clear phlegm. Denies any hemoptysis No chest pain No headache, no nausea vomiting Fair appetite Constitutional: No acute distress HEENT: EOMI, PERRLA Respiratory system: Decreased air entry on the right side, no wheeze, no rhon chi, positive crackles bilateral lower lobes CVS: S1-S2 positive, no murmurs or gallops Abdomen: Soft, nontender, nondistended, positive bowel sounds x4, obese Extremities: +2 pulses bilaterally radialis/ dorsalis pedis, no cyanosis, +1 pitting edema bilateral lower extremity Neuro: Awake alert oriented x3 Psych: Normal mood and affect G/U: No Dominguez Plan: CT chest shows right lower lobe opacities. They have been present since Oct of this year Patient had right lower lobe adenocarcinoma s/p SBRT approximately a year ago. She had a liver biopsy recently which showed metastatic adenocarcinoma I personally think the opacities in the right lower lobe are worsening of underlying adenocarcinoma of the lung rather than pneumonia MRI of the brain was negative for metastatic disease. Patient is agreeable for thoracentesis. It will be done tomorrow by IR. Please note the above document was generated using voice recognition software. It may contain grammatical, syntax or spelling errors.Any formal questions or concerns about the content, text or information contained within the body of this dictation should be directly addressed to the provider for clarification. Subjective Patient was seen and evaluated by myself. She reports feeling better today. She has been ambulating back and forth to the restroom. She admits that she has not walked the halls yet. Otherwise, she feels improved. Review of Systems Review of Systems: A complete 6 point review of systems was reviewed with the patient with pertinent positives and negatives as per history of present illness. All else were negative. Physical Exam Physical Exam: VITAL SIGNS - Vital signs and nursing notes were reviewed. GENERAL - 67-year-old female appearing her stated age who is in no acute distress. Communicates well with provider and answers questions appropriately. MOUTH/OROPHARYNX - Without perioral cyanosis. Buccal mucosa pink and moist. LUNGS - Auscultation reveals diminished breath sounds at the bases, RIGHT > left. CARDIAC - RRR with S1/S2. No murmur, rubs, or gallops appreciated. ABDOMEN - Abdominal inspection demonstrates an obese abdomen. BS normoactive all four quadrants. No tenderness, palpable masses, or ascites noted. PSYCH - A&Ox3 and cooperates fully with examiner. Pt is very pleasant and interacts well with examiner. Results & Data Results & Data Vital Signs (Past 12 Hours) Vital Signs Temp Pulse Pulse Resp BP Pulse Ox O2 Del Method 01/20/23 11:25 36.5 C 63 16 116/74 90 Nasal Cannula 01/20/23 10:11 Nasal Cannula 01/20/23 07:37 36.4 C L 62 18 135/72 97 BiPAP 01/20/23 06:55 56 L 01/20/23 06:58 57 L 15 91 CPAP 01/20/23 03:51 36.5 C 67 20 118/76 91 Nasal Cannula 01/20/23 00:10 87 90 BiPAP O2 Flow Rate 01/20/23 11:25 4 01/20/23 10:11 4 01/20/23 07:37 01/20/23 06:55 01/20/23 06:58 3 01/20/23 03:51 4 01/20/23 00:10 4 Laboratory Results 01/20/23 06:32 01/20/23 06:32 PG Care Time/CCT Total # of Minutes Spent Total Time Spent with Patient: Total time spent is greater than 50% in coordination of care (as documented) at patient's floor/unit and/or counseling patient: Coding Level of Care Code 94514 SUB INP/OBS CARE 2/35MIN Diagnoses Acute and chronic respiratory failure with hypoxia J96.21 Pleural effusion, right J90 Metastatic lung cancer (metastasis from lung to other site) C34.90 CHF (congestive heart failure) I50.9 Heart failure chronicity: acute on chronic Heart failure type: unspecified COPD (chronic obstructive pulmonary disease) J44.9
[2023-01-20] MEDS ORDERED: LEVALBUTEROL 1.25 MG/3 ML NEB ONE (13:16)
[2023-01-20] MEDS: oxyCODONE HCL IR 5 MG TAB (IMMEDIATE RELEASE) PO PRN (15:42)
--- NOTE | 2023-01-20 17:19 | Hospitalist Progress Note ---
Date of Service January 20, 2023 Assessment & Plan (1) Acute and chronic respiratory failure with hypercapnia: Plan: Acute on chronic respiratory failure with hypoxia and hypercapnia Chronic oxygen dependency--on 3 L at baseline Multifactorial secondary to COPD, CHF, pleural effusion, lung cancer, suspected postobstructive pneumonia, BHAVIK Likely malignant pleural effusion Past tobacco abuse No signs of COPD exacerbation --CTA:No acute pulmonary embolism. Airspace consolidation at the RIGHT lung base, concerning for aspiration pneumonia. Mild-moderate RIGHT parapneumonic effusion. Right pleural effusion is essentially unchanged in size from prior exam. Pulmonary nodules are unchanged. Osseous metastatic disease again noted. --Biofire: Negative -- Normal procalcitonin, lactate --Blood cultures negative to date --Sputum culture pending Right pleural effusion unchanged from prior CT Continue supplemental oxygen as needed Continue IV antibiotics for now Consider thoracentesis if patient agrees Continue Lasix Continue home inhalers Appreciate pulmonary input Plan for thoracentesis by IR tomorrow Metastatic lung cancer Liver biopsy consistent with Metastatic adenocarcinoma consistent with lung primary S/P radiation We will obtain MRI brain to rule out brain metastasis Follows with oncology as outpatient--has follow-up appointment on Thursday per patient Chronic diastolic heart failure -ECHO 10/19/22:EF 55 to 60%. Mild concentric LVH. Grade 1 diastolic dysfunction. Mild tricuspid regurgitation. Continue home diuretics Monitor volume status H/O CAD/PVD hypertension Hypertension Hyperlipidemia Continue home medication DM II Last HbA1c 6.0 Continue insulin while hospitalized Monitor blood glucose levels Hypothyroidism Normal TSH Continue levothyroxine Anemia of chronic disease Hb at baseline Ongoing alcohol use disorder Monitor for withdrawal BHAVIK CPAP HS DVT Px: Lovenox SQ Code Status Full code Admission and Anticipated Discharge Date Admission Date: January 18, 2023 Subjective Patient is seen and examined at bedside States feeling better this morning Less cough, dyspnea today Patient agrees for thoracentesis No other complaints Denies any chest pain, dizziness, nausea, abdominal pain Saturating well on 4 L supplemental oxygen Review of Systems Review of Systems: All systems reviewed & are unremarkable except as noted in Subjective Physical Exam Physical Exam: Physical Exam: Vitals signs as noted above General Appearance:Morbidly Obese, chronic ill appearing, no apparent distress Head: normocephalic, Atraumatic Eyes: normal inspection, EOMI Neck: supple, Trachea midline Respiratory/Chest: Decreased breath sounds at bases, No accessory muscle use Cardiovascular: S1, S2, No murmur Abdomen/GI:Soft, Non tender, Bowel sounds present Extremities/Musculoskeletal:normal inspection, 1+ pedal edema Neurologic/Psych:AAOX3, grossly no focal neurological deficits Skin: normal color, warm Results & Data Results & Data Vital Signs (Past 12 Hours) Vital Signs Temp Pulse Pulse Resp BP Pulse Ox O2 Del Method 01/20/23 15:14 36.5 C 68 18 121/71 91 Nasal Cannula 01/20/23 13:31 66 15 91 CPAP 01/20/23 11:25 36.5 C 63 16 116/74 90 Nasal Cannula 01/20/23 10:11 Nasal Cannula 01/20/23 07:37 36.4 C L 62 18 135/72 97 BiPAP 01/20/23 06:55 56 L 01/20/23 06:58 57 L 15 91 CPAP O2 Flow Rate 01/20/23 15:14 4 01/20/23 13:31 3 01/20/23 11:25 4 01/20/23 10:11 4 01/20/23 07:37 01/20/23 06:55 01/20/23 06:58 3 Laboratory Results Short CBC 01/20/23 Range/Units 06:32 WBC 13.17 H (4.8-10.8) K/ul Hgb 10.9 L (12.0-16.0) g/dl Hct 34.6 L (37.0-47.0) % Plt Count 278 (130-400) K/uL BMP 01/20/23 06:32 Sodium 139 Potassium 3.7 Chloride 99 Carbon Dioxide 34 H BUN 16 Creatinine 0.53 L Glucose 119 H Calcium 8.6
[2023-01-20] MEDS: PRAVASTATIN SOD 20 MG TAB PO SCH (20:33)
[2023-01-20 22:09] LABS: A calco-baum cmplx NotReported Not Detected (NotDetected); Bact fragilis Not Reported Not Detected (NotDetected); C auris Not Reported Not Detected (NotDetected); Calbicans Not Reported Not Detected (NotDetected); Candida glabrata Not Reported Not Detected (NotDetected); Candida krusei Not Reported Not Detected (NotDetected); Cneoformans/gatti Not Reported Not Detected (NotDetected); Cparapsilosis Not Reported Not Detected (NotDetected); Ctropicalis Not Reported Not Detected (NotDetected); E cloacae compx Not Reported Not Detected (NotDetected); Efaecalis Not Reported Not Detected (NotDetected); Efaecium Not Reported Not Detected (NotDetected); Enterobacterales Not Reported Not Detected (NotDetected); Escherichia coli Not Reported Not Detected (NotDetected); H influenzae Not Reported Not Detected (NotDetected); K aerogenes Not Reported Not Detected (NotDetected); Koxytoca Not Reported Not Detected (NotDetected); Kpneumoniae grp Not Reported Not Detected (NotDetected); Lmonocyt Not Reported Not Detected (NotDetected); N meningitidis Not Reported Not Detected (NotDetected); P aeruginosa Not Reported Not Detected (NotDetected); Proteus spp Not Reported Not Detected (NotDetected); Salmonella spp Not Reported Not Detected (NotDetected); Smarcescens Not Reported Not Detected (NotDetected); Staph lugdunensis Not Reported Not Detected (NotDetected); Staph spp. Not Reported DETECTED (NotDetected); Staphaureus Not Reported Not Detected (NotDetected); Staphepi Not Reported Not Detected (NotDetected); Stenmaltophilia Not Reported Not Detected (NotDetected); Strep agal(GrpB) Not Reported Not Detected (NotDetected); Strep pneum Not Reported Not Detected (NotDetected); Strep pyog (GrpA) Not Reported Not Detected (NotDetected); Strep spp Not Reported Not Detected (NotDetected)
--- NOTE | 2023-01-20 22:13 | Electrocardiogram Report ---
Test Reason : Blood Pressure : / mmHG Vent. Rate : 072 BPM Atrial Rate : 072 BPM P-R Int : 138 ms QRS Dur : 086 ms QT Int : 404 ms P-R-T Axes : 052 050 026 degrees QTc Int : 442 ms Normal sinus rhythm T wave abnormality, consider anterior ischemia Abnormal ECG When compared with ECG of 03-JAN-2023 11:19, T wave inversion more evident in Anterior leads Confirmed by Jonathon Wasserman ([id number]) on 01/20/2023 10:13:28 PM Referred By: REFERRED SELF Confirmed By:Jonathon Wasserman
[2023-01-20 22:18] LABS: Staphylococcus spp. DETECTED (NotDetected)
[2023-01-20] MEDS: ACETAMINOPHEN 325 MG TAB PO PRN (23:11)
[2023-01-21] MEDS: IPRATROPIUM BROMIDE NEB SOLN 0.02% 2.5 ML VIAL INH SCH ×2 (00:13→07:36)
[2023-01-21] MEDS: LEVALBUTEROL 1.25MG/0.5ML NEB INH SCH ×2 (00:14→07:40)
[2023-01-21] MEDS ORDERED: LEVALBUTEROL HCL 0.63 MG/3 ML NEB ONE (00:21)
[2023-01-21] MEDS: PIPERACILLIN/TAZOBACTAM 4.5 GM in DEXTROSE 5% 100 ML IV SCH ×3 (05:33→22:22)
[2023-01-21] MEDS: LEVOTHYROXINE SODIUM 150 MCG TABLET PO SCH (05:38)
[2023-01-21] MEDS: ACETAMINOPHEN 325 MG TAB PO PRN (05:38)
[2023-01-21] MEDS ORDERED: LEVALBUTEROL 1.25 MG/3 ML NEB ONE (06:48)
[2023-01-21] MEDS ORDERED: IPRATROPIUM BROMIDE NEB SOLN 0.02% 2.5 ML VIAL INH PRN (07:45)
[2023-01-21] MEDS ORDERED: LEVALBUTEROL 1.25MG/0.5ML NEB INH PRN (07:45)
--- NOTE | 2023-01-21 07:51 | Pulmonology Progress Note ---
Date of Service January 21, 2023 Assessment & Plan (1) Acute and chronic respiratory failure with hypoxia: (2) Pleural effusion, right: (3) Metastatic lung cancer (metastasis from lung to other site): (4) CHF (congestive heart failure): Heart failure chronicity: acute on chronic Heart failure type: unspecified Qualified Code(s): I50.9 - Heart failure, unspecified (5) COPD (chronic obstructive pulmonary disease): Plan IMPRESSION: 67-year-old female with metastatic adenocarcinoma of the lung presenting with acute on chronic hypoxic respiratory failure in the setting of RIGHT-sided pleural effusion and concerning CT findings in the RIGHT lower lobe. RECOMMENDATIONS: 1. Acute on chronic hypoxic respiratory failure - * 3-4 L NC at this time. She can likely be back to her baseline O2 requirement at this time. * Likely multifactorial in the setting of the COPD patient with CHF, pleural effusion, and lung CA. * Sputum cultures pending. * Continue to encourage incentive spirometry. * Would encourage the patient to be out of bed and ambulating as tolerated as well. 2. RIGHT-sided pleural effusion - * Relatively unchanged from prior admissions. * Likely representing malignant effusion from primary lung lesion on the same side. * Thoracentesis planned today at 1 PM by IR. * Patient is agreeable to thoracentesis after discussing this with her family. * Would continue with the patient's Lasix dosing for now. Would not escalate dosing as the effusion appears relatively stable from last hospitalization. 3. Metastatic adenocarcinoma of the lung - * Patient to have follow-up appointment with oncology on Thursday to establish goals of care moving forward as well as treatment options. * Will defer to oncology for treatment plan moving forward. 4. CHF - * Continue current Lasix dosing. 5. COPD - * Will place the patient on her home inhalers. * She continues to be without bronchospastic breath sounds, significant SOB, or cough. 6. BHAVIK - * Continue to utilize home CPAP settings. Thank you for allowing us to participate in the care of this patient. We will continue to follow along during the patient's hospitalization. Admission and Anticipated Discharge Date Admission Date: January 18, 2023 Supervising Physician Co-Signing Physician Notes I saw and evaluated the patient with Jc Anthony PA-C, and agree with findings and plan as documented in the note. Patient seen and examined at bedside. No acute distress, no adverse events overnight She was saturating 93-94% on 3 L nasal cannula Denies any chest pain, coughing up clear phlegm No nausea or vomiting Fair appetite Constitutional: No acute distress HEENT: EOMI, PERRLA Respiratory system: Decreased air entry on the right side, no wheeze, no rhonchi, positive crackles bilateral lower lobes CVS: S1-S2 positive, no murmurs or gallops Abdomen: Soft, nontender, nondistended, positive bowel sounds x4, obese Extremities: +2 pulses bilaterally radialis/ dorsalis pedis, no cyanosis, +1 pitting edema bilateral lower extremity Neuro: Awake alert oriented x3 Psych: Normal mood and affect G/U: No Dominguez Plan: CT chest shows right lower lobe opacities. They have been present since October of this year Patient had right lower lobe adenocarcinoma s/p SBRT approximately a year ago. She had a liver biopsy recently which showed metastatic adenocarcinoma I personally think the opacities in the right lower lobe are worsening of underlying adenocarcinoma of the lung rather than pneumonia MRI of the brain was negative for metastatic disease. Patient for thoracentesis today. Labs ordered. No further recommendation from pulmonary perspective We will sign off, please call directly with any questions Please note the above document was generated using voice recognition software. It may contain grammatical, syntax or spelling errors.Any formal questions or concerns about the content, text or information contained within the body of this dictation should be directly addressed to the provider for clarification. Subjective Patient seen and evaluated at bedside. She reports an uneventful night. Her breathing is back to her baseline. She offers no other complaints. Review of Systems Review of Systems: A complete 6 point review of systems was reviewed with the patient with pertinent positives and negatives as per history of present illness. All else were negative. Physical Exam Physical Exam: VITAL SIGNS - Vital signs and nursing notes were reviewed. GENERAL - 67-year-old female appearing her stated age who is in no acute distress. Communicates well with provider and answers questions appropriately. MOUTH/OROPHARYNX - Without perioral cyanosis. Buccal mucosa pink and moist. LUNGS - Auscultation reveals diminished breath sounds at the bases, RIGHT > left. CARDIAC - RRR with S1/S2. No murmur, rubs, or gallops appreciated. ABDOMEN - Abdominal inspection demonstrates an obese abdomen. BS normoactive all four quadrants. No tenderness, palpable masses, or ascites noted. PSYCH - A&Ox3 and cooperates fully with examiner. Pt is very pleasant and interacts well with examiner. Skin: no rashes, warm and dry Lymphatic: no cervical or axillary lymphadenopathy Results & Data Results & Data Vital Signs (Past 12 Hours) Vital Signs Temp Pulse Pulse Resp BP BP Pulse Ox 01/21/23 07:45 58 L 01/21/23 07:38 36.2 C L 64 18 107/52 L 95 01/21/23 04:00 36.7 C 61 18 111/64 93 01/21/23 00:17 75 19 94 01/20/23 22:00 66 01/20/23 23:28 36.7 C 70 18 127/65 93 01/20/23 20:31 O2 Del Method O2 Flow Rate 01/21/23 07:45 01/21/23 07:38 Nasal Cannula 4 01/21/23 04:00 CPAP 01/21/23 00:17 CPAP 4 01/20/23 22:00 01/20/23 23:28 Nasal Cannula 4 01/20/23 20:31 Room Air 4 Laboratory Results 01/21/23 07:12 01/21/23 07:12 PG Care Time/CCT Total # of Minutes Spent Total Time Spent with Patient: Total time spent is greater than 50% in coordination of care (as documented) at patient's floor/unit and/or counseling patient: Coding Level of Care Code 98754 SUB INP/OBS CARE 2/35MIN Diagnoses Acute and chronic respiratory failure with hypoxia J96.21 Pleural effusion, right J90 Metastatic lung cancer (metastasis from lung to other site) C34.90 CHF (congestive heart failure) I50.9 Heart failure chronicity: acute on chronic Heart failure type: unspecified COPD (chronic obstructive pulmonary disease) J44.9
[2023-01-21 08:00] LABS: Hematocrit (blood only) 34.6 % (37.0-47.0); Hemoglobin 10.9 g/dl (12.0-16.0); Mean Corpuscular Hgb Conc 31.5 g/dL (32.0-36.0); Mean Corpuscular Volume 95.3 fL (80.0-100.0); Mean Platelet Volume 10.3 fL (9.4-12.4); Platelet Count 281 K/uL (130-400); RDW Coefficient of Variation 14.8 % (11.5-14.5); RDW Standard Deviation 51.8 fL (36.4-46.3); Red Blood Count 3.63 M/uL (4.20-5.40); White Blood Count 10.16 K/ul (4.8-10.8)
[2023-01-21 08:12] LABS: BUN Creatinine Ratio 36.7 (10-20); Calcium 8.6 mg/dl (8.6-10.3); Creatinine Clr Calc Pharmacy 100.2 ml/min; Est GFR (African American) 110.9 ml/min; Est GFR (Non-African American) 95.7 ml/min; Potassium 3.8 mmol/L (3.5-5.1)
[2023-01-21] MEDS: METOPROLOL SUCC 25MG EXT REL TAB PO SCH ×2 (08:12→19:37)
[2023-01-21] MEDS: FOLIC ACID 1 MG TAB PO SCH (08:13)
[2023-01-21] MEDS: FUROSEMIDE 40 MG TAB PO SCH (08:13)
[2023-01-21] MEDS: EZETIMIBE 10 MG TABLET PO SCH (08:13)
[2023-01-21] MEDS: amLODIPine BESYLATE 5 MG TAB PO SCH (08:13)
[2023-01-21] MEDS: THIAMINE HCL 100 MG TAB PO SCH (08:14)
[2023-01-21] MEDS: MULTIVITAMIN TAB PO SCH (08:15)
[2023-01-21] MEDS: ASPIRIN 81 MG ECTAB PO SCH (08:15)
[2023-01-21] MEDS: UMECLIDINIUM/VILANTEROL 62.5/25MCG 7 PUFFS/INHALER INH SCH (08:16)
[2023-01-21] MEDS: FLUTICASONE FUROATE 100MCG 14 PUFFS/INHALER INH SCH (08:16)
[2023-01-21] MEDS: INSULIN ASPART PER UNIT CHARGE SC SCH ×4 (08:25→22:17)
[2023-01-21] MEDS: LANTUS PER UNIT CHARGE SQ SCH ×2 (08:25→22:22)
--- NOTE | 2023-01-21 13:46 | XRay Report ---
XR chest 1V not portable HISTORY: 67 years-old Female s/p rt thora right pleural effusion. COMPARISON: CTA chest 01/18/2023, Chest radiograph 01/05/2023 TECHNIQUE: PA view of the chest FINDINGS: Cardiac silhouette is enlarged. Pulmonary vascular congestion with reticular interstitial opacities. No pneumothorax. Decrease size of the small right pleural effusion with improved aeration of the righ t lung base. Degenerative changes of the shoulders and spine. IMPRESSION: 1. Cardiomegaly with pulmonary edema. 2. Small right pleural effusion has decreased in size status post thoracentesis. 3. Mildly improved aeration of the right lung base. 4. No postprocedural pneumothorax identified. ACT 112: Negative or not required by law. The above report was generated using voice recognition software. It may contain grammatical, syntax o r spelling errors. Electronically signed by: Jon Lieberman M.D. 01/21/2023 1:45 PM
--- NOTE | 2023-01-21 14:10 | Ultrasound Report ---
Ultrasound guided thoracentesis. Clinical indication: Right-sided pleural effusion. Procedure: Procedure and risks were explained. Informed consent was obtained from the patient. A warren l timeout was completed. Sonographic examination revealed a small to moderate right pleural effusion. The skin of the right posterior chest was prepped and draped in sterile fashion. 1% buffered lidoc josé antonio was utilized for skin anesthesia. Utilizing ultrasound guidance, a 5 [place] safety centesis cath eter was introduced into the pleural space and 550 ml of yellow fluid was drained and sent to the lab . Ultrasound images were obtained. The catheter was removed. Post procedure scanning revealed signif icant decrease in the size of the pleural effusion. Postprocedural chest x-ray showed no pneumothorax . Complication: No immediate. Graphotype Operator: Krishna Eldridge PA-C. IMPRESSION: Ultrasound guided thoracentesis as described above. Performed, dictated, and signed by Krishna Eldridge PA-C; to be co-signed by Dr. Marco A Dozier. Electronically signed by: Marco A Dozier M.D. 01/22/2023 7:50 PM
[2023-01-21] MEDS: oxyCODONE HCL IR 5 MG TAB (IMMEDIATE RELEASE) PO PRN (14:55)
[2023-01-21 15:00] LABS: Total Protein Pleural Fluid 4.2 gm/dl
[2023-01-21 16:44] LABS: Appearance Pleural Fluid Cloudy; Color Pleural Fluid Yellow; RBC Pleural Fluid Auto 4000 /uL; Source Pleural Fluid Right Lung; WBC Pleural Fluid Auto 4027 /uL
--- NOTE | 2023-01-21 17:21 | Hospitalist Progress Note ---
Date of Service January 21, 2023 Assessment & Plan (1) Acute and chronic respiratory failure with hypercapnia: Plan: Acute on chronic respiratory failure with hypoxia and hypercapnia Chronic oxygen dependency--on 3 L at baseline Multifactorial secondary to COPD, CHF, pleural effusion, lung cancer, suspected postobstructive pneumonia, BHAVIK Likely malignant pleural effusion Status post thoracentesis on 01/21/2023 (550 cc removal). Past tobacco abuse No signs of COPD exacerbation --CTA:No acute pulmonary embolism. Airspace consolidation at the RIGHT lung base, concerning for aspiration pneumonia. Mild-moderate RIGHT parapneumonic effusion. Right pleural effusion is essentially unchanged in size from prior exam. Pulmonary nodules are unchanged. Osseous metastatic disease again noted. --Biofire: Negative -- Normal procalcitonin, lactate --Blood cultures negative to date --Sputum culture pending Right pleural effusion unchanged from prior CT Continue supplemental oxygen as needed Continue IV antibiotics for now Continue Lasix Continue home inhalers Patient to follow-up with oncology on Thursday. Metastatic lung cancer Liver biopsy consistent with Metastatic adenocarcinoma consistent with lung primary S/P radiation MRI brain negative for metastatic disease. Follows with oncology as outpatient--has follow-up appointment on Thursday per patient Chronic diastolic heart failure -ECHO 10/19/22:EF 55 to 60%. Mild concentric LVH. Grade 1 diastolic dysfunction. Mild tricuspid regurgitation. Continue home diuretics Monitor volume status H/O CAD/PVD hypertension Hypertension Hyperlipidemia Continue home medication DM II Last HbA1c 6.0 Continue insulin while hospitalized Monitor blood glucose levels Hypothyroidism Normal TSH Continue levothyroxine Anemia of chronic disease Hb at baseline Ongoing alcohol use disorder Monitor for withdrawal BHAVIK CPAP HS DVT Px: Lovenox SQ Code Status Full code Time spent evaluating patient, direct bedside care, chart review, placing orders, interpretation of diagnostic studies, discussion with consultants, patient, and family members, as well as other required patient management activities is 60 minutes Please note the above document was generated using voice recognition software. It may contain grammatical, syntax or spelling errors. Any formal questions or concerns about the content, text or information contained within the body of this dictation should be directly addressed to the provider for clarification Admission and Anticipated Discharge Date Admission Date: January 18, 2023 Supervising Physician Co-Signing Physician Notes I saw and evaluated the patient with Jc Anthony PA-C, and agree with findings and plan as documented in the note. Patient seen and examined at bedside. No acute distress, no adverse events overnight She was saturating 93-94% on 3 L nasal cannula Denies any chest pain, coughing up clear phlegm No nausea or vomiting Fair appetite Constitutional: No acute distress HEENT: EOMI, PERRLA Respiratory system: Decreased air entry on the right side, no wheeze, no rhonchi, positive crackles bilateral lower lobes CVS: S1-S2 positive, no murmurs or gallops Abdomen: Soft, nontender, nondistended, positive bowel sounds x4, obese Extremities: +2 pulses bilaterally radialis/ dorsalis pedis, no cyanosis, +1 pitting edema bilateral lower extremity Neuro: Awake alert oriented x3 Psych: Normal mood and affect G/U: No Dominguez Plan: CT chest shows right lower lobe opacities. They have been present since October of this year Patient had right lower lobe adenocarcinoma s/p SBRT approximately a year ago. She had a liver biopsy recently which showed metastatic adenocarcinoma I personally think the opacities in the right lower lobe are worsening of underlying adenocarcinoma of the lung rather than pneumonia MRI of the brain was negative for metastatic disease. Patient for thoracentesis today. Labs ordered. No further recommendation from pulmonary perspective We will sign off, please call directly with any questions Please note the above document was generated using voice recognition software. It may contain grammatical, syntax or spelling errors.Any formal questions or concerns about the content, text or information contained within the body of this dictation should be directly addressed to the provider for clarification. Subjective Patient seen and examined at bedside. She is sitting at the side of the bed; not in distress. She is requiring 4 L of oxygen via nasal cannula to maintain saturation. She reports that her breathing is at baseline. Review of Systems Review of Systems: All systems reviewed & are unremarkable except as noted in Subjective Physical Exam Physical Exam: Physical Exam: Vitals signs as noted above General Appearance:Morbidly Obese, chronic ill appearing, no apparent distress Head: normocephalic, Atraumatic Eyes: normal inspection, EOMI Neck: supple, Trachea midline Respiratory/Chest: Decreased breath sounds at bases, No accessory muscle use Cardiovascular: S1, S2, No murmur Abdomen/GI:Soft, Non tender, Bowel sounds present Extremities/Musculoskeletal:normal inspection, 1+ pedal edema Neurologic/Psych:AAOX3, grossly no focal neurological deficits Skin: normal color, warm Results & Data Results & Data Vital Signs (Past 12 Hours) Vital Signs Temp Pulse Pulse Resp BP Pulse Ox O2 Del Method 01/21/23 16:00 70 01/21/23 15:30 36.4 C L 70 18 111/72 90 Nasal Cannula 01/21/23 11:12 36.4 C L 63 18 135/76 93 Nasal Cannula 01/21/23 07:45 58 L 01/21/23 07:38 36.2 C L 64 18 107/52 L 95 Nasal Cannula O2 Flow Rate 01/21/23 16:00 01/21/23 15:30 3 01/21/23 11:12 4 01/21/23 07:45 01/21/23 07:38 4 Laboratory Results Laboratory Results WBC 10.16 K/ul (4.8-10.8) 01/21/23 07:12 RBC 3.63 M/uL (4.20-5.40) L 01/21/23 07:12 Hgb 10.9 g/dl (12.0-16.0) L 01/21/23 07:12 POC Hgb 11.9 g/dl (12.0-16.0) L 01/18/23 20:11 Hct 34.6 % (37.0-47.0) L 01/21/23 07:12 POC Hct 35 % (37-47) L 01/18/23 20:11 MCV 95.3 fL (80.0-100.0) 01/21/23 07:12 MCH 30.0 pg (25.0-34.0) 01/21/23 07:12 MCHC 31.5 g/dL (32.0-36.0) L 01/21/23 07:12 RDW Std Deviation 51.8 fL (36.4-46.3) H 01/21/23 07:12 RDW Coeff of Naa 14.8 % (11.5-14.5) H 01/21/23 07:12 Plt Count 281 K/uL (130-400) 01/21/23 07:12 MPV 10.3 fL (9.4-12.4) 01/21/23 07:12 Immature Gran % (Auto) 2.1 % 01/19/23 05:27 Neut % (Auto) 93.3 % 01/19/23 05:27 Lymph % (Auto) 3.1 % 01/19/23 05:27 [place] % (Auto) 0.8 % 01/19/23 05:27 Eos % (Auto) 0.3 % 01/19/23 05:27 Baso % (Auto) 0.4 % 01/19/23 05:27 Neut # (Auto) 14.34 K/uL (1.40-6.50) H 01/19/23 05:27 Lymph # (Auto) 0.47 K/uL (1.2-3.4) L 01/19/23 05:27 [place] # (Auto) 0.12 K/uL (0.11-0.59) 01/19/23 05:27 Eos # (Auto) 0.04 K/uL (0-0.50) 01/19/23 05:27 Baso # (Auto) 0.06 K/uL (0-0.2) 01/19/23 05:27 Immature Gran # (Auto) 0.33 K/uL (0.01-0.20) H 01/19/23 05:27 Polychromasia 1+ 01/19/23 05:27 ABG pH 7.41 (7.35-7.45) 01/18/23 22:47 ABG pCO2 54 mmHg (35-46) H 01/18/23 22:47 ABG pO2 63 mmHg (80-95) L 01/18/23 22:47 ABG HCO3 34 mmol/L (19-24) H 01/18/23 22:47 ABG O2 Saturation 91.9 % (90-95) 01/18/23 22:47 ABG Base Excess 7.8 mEq/L (-9-1.8) H 01/18/23 22:47 Christian Test Pos (Pos) 01/18/23 22:47 Oxygen Given 4 01/18/23 22:47 POC Sodium 140 mmol/L (135-144) 01/18/23 20:11 Sodium 137 mmol/L (136-145) 01/21/23 07:12 POC Potassium 4.2 mmol/L (3.3-5.0) 01/18/23 20:11 Potassium 3.8 mmol/L (3.5-5.1) 01/21/23 07:12 POC Chloride 100 mmol/L (101-112) L 01/18/23 20:11 Chloride 97 mmol/L (98-107) L 01/21/23 07:12 Carbon Dioxide 31 mmol/L (21-32) 01/21/23 07:12 POC Total CO2 28 mmol/L (24-31) 01/18/23 20:11 Anion Gap 9 (3-11) 01/21/23 07:12 POC Anion Gap 17.0 mmol/L (16-25) 01/18/23 20:11 POC BUN 15 mg/dl (7-18) 01/18/23 20:11 BUN 22 mg/dl (6-23) 01/21/23 07:12 Creatinine 0.60 mg/dl (0.6-1.2) 01/21/23 07:12 POC Creatinine 0.5 mg/dl (0.6-1.3) L 01/18/23 20:11 Est Cr Clr Drug Dosing 100.2 ml/min 01/21/23 07:12 Est GFR ( Amer) 110.9 ml/min 01/21/23 07:12 Est GFR (Non-Af Amer) 95.7 ml/min 01/21/23 07:12 BUN/Creatinine Ratio 36.7 (10-20) H 01/21/23 07:12 Glucose 108 mg/dl (70-99(Fasting)) H 01/21/23 07:12 POC Glucose 161 mg/dl (70-99) H 01/21/23 16:56 POC Glucose (other) 109 mg/dl (70-99) H 01/18/23 20:11 Lactate 1.1 mmol/L (0.4-2.0) 01/18/23 22:47 Calcium 8.6 mg/dl (8.6-10.3) 01/21/23 07:12 POC Ioniz Calcium Dandy 1.14 mmol/l (1.12-1.32) 01/18/23 20:11 Magnesium 2.0 mg/dl (1.7-2.4) 01/21/23 07:12 Total Bilirubin 0.3 mg/dl (0.2-1.0) 01/18/23 19:25 AST 17 U/L (13-39) 01/18/23 19:25 ALT 19 U/L (7-52) 01/18/23 19:25 Alkaline Phosphatase 106 U/L (34-104) H 01/18/23 19:25 Lactate Dehydrogenase 179 U/L (86-244) 01/21/23 14:12 Troponin I High Sens 6.4 pg/ml (0-14) 01/18/23 19:25 B-Natriuretic Peptide 51 pg/ml (0-100) 01/18/23 19:25 Total Protein 7.4 gm/dl (6.0-8.3) 01/18/23 19:25 Albumin 4.2 gm/dl (3.4-5.0) 01/18/23 19:25 Globulin 3.2 gm/dl (2.5-4.0) 01/18/23 19:25 Albumin/Globulin Ratio 1.3 (0.9-2) 01/18/23 19:25 Lipase 118 U/L (11-82) H 01/18/23 19:25 Procalcitonin < 0.05 ng/ml (0-0.5) 01/18/23 19:43 TSH 3.343 uIu/ml (0.300-4.500) 01/18/23 19:42 Fluid Neutrophils % TNP 01/21/23 Unknown Fluid Comment 01/21/23 Unknown Pleural Fluid Source Right Lung 01/21/23 Unknown Pleural Color Yellow 01/21/23 Unknown Pleural Appearance Cloudy 01/21/23 Unknown Pleural pH 7.62 (7.3-7.4) H 01/21/23 Unknown Pleural WBC (Auto) 4027 /uL 01/21/23 Unknown Pleural RBC (Auto) 4000 /uL 01/21/23 Unknown Pleural Total Protein 4.2 gm/dl 01/21/23 Unknown Pleural LDH 230 U/L 01/21/23 Unknown Pleural Glucose 169 mg/dl 01/21/23 Unknown Ethyl Alcohol mg/dL < 10.0 mg/dl (<10.0) 01/18/23 19:42 Adenovirus (PCR) Not Detected (NotDetected) 01/18/23 19:52 B. pertussis DNA (PCR) Not Detected (NotDetected) 01/18/23 19:52 B.parapertussis DNA PCR Not Detected (NotDetected) 01/18/23 19:52 C. pneumoniae DNA (PCR) Not Detected (NotDetected) 01/18/23 19:52 Coronavirus OC43 (PCR) Not Detected (NotDetected) 01/18/23 19:52 Coronavirus HKU1 (PCR) Not Detected (NotDetected) 01/18/23 19:52 Coronavirus 229E (PCR) Not Detected (NotDetected) 01/18/23 19:52 SARS-CoV-2 (PCR) Not Detected (NotDetected) 01/18/23 19:52 Coronavirus NL63 (PCR) Not Detected (NotDetected) 01/18/23 19:52 Human Metapneumovir PCR Not Detected (NotDetected) 01/18/23 19:52 Influenza Type A (PCR) Not Detected (NotDetected) 01/18/23 19:52 Influenza Type B (PCR) Not Detected (NotDetected) 01/18/23 19:52 M. pneumoniae (PCR) Not Detected (NotDetected) 01/18/23 19:52 Parainfluenza 1 (PCR) Not Detected (NotDetected) 01/18/23 19:52 Parainfluenza 2 (PCR) Not Detected (NotDetected) 01/18/23 19:52 Parainfluenza 3 (PCR) Not Detected (NotDetected) 01/18/23 19:52 Parainfluenza 4 (PCR) Not Detected (NotDetected) 01/18/23 19:52 RSV (PCR) Not Detected (NotDetected) 01/18/23 19:52 Entero/Rhino (PCR) Not Detected (NotDetected) 01/18/23 19:52 Staphylococcus sp PCR DETECTED (NotDetected) A 01/18/23 22:28 Bld Cult ID Panel PCR See PCR Comment (NotDetected) 01/18/23 22:28 Impressions Chest CTA 01/18/23 19:38 Exam(s): CTA CHEST IV Amt: 114ml EXAM: CT Angiography Chest With Intravenous Contrast CLINICAL HISTORY: Reason for exam: sob, metastatic lung ca, r/o PE. TECHNIQUE: Axial computed tomographic angiography images of the chest with intravenous contrast. CTDI is 41 mGy and DLP is 802.71 mGy-cm. Automated exposure control was utilized for the study. A dose lowering technique was utilized adhering to the principles of ALARA. MIP reconstructed images were created and reviewed. COMPARISON: No relevant prior studies available. FINDINGS: Pulmonary arteries: Unremarkable. No acute pulmonary embolism. Aorta: Non-aneurysmal aorta. Atherosclerotic changes of the aorta. Lungs: Airspace consolidation at the RIGHT lung base, concerning for aspiration pneumonia. Mild-moderate RIGHT parapneumonic effusion. Pleural space: Unremarkable. No significant effusion. No pneumothorax. Heart: Cardiomegaly. No pericardial effusion. No evidence of RV dysfunction. Bones/joints: Degenerative changes of the spine. No acute fracture. No dislocation. Soft tissues: Unremarkable. Lymph nodes: Unremarkable. No enlarged lymph nodes. IMPRESSION: 1. No acute pulmonary embolism. 2. Airspace consolidation at the RIGHT lung base, concerning for aspiration pneumonia. Mild-moderate RIGHT parapneumonic effusion. Electronically signed by: Duy Gary MD 01/18/23 21:04 PM Brain MRI 01/19/23 12:10 MR brain wo/w con CLINICAL HISTORY: Metastatic disease TECHNIQUE: Multiplanar and multisequence MR images of the brain were obtained prior to and following administration of gadolinium contrast. Comparison: Comparison is made to CT head 01/13/2019 FINDINGS: No abnormal restricted diffusion is identified. The white matter is unremarkable. The ventricular system is normal in appearance. No mass or abnormal enhancement is seen. There is no mass effect or midline shift. There is no evidence of acute intraparenchymal hemorrhage. No extra axial fluid collections are seen. The corpus callosum, pituitary gland, and cerebellar tonsils appear grossly unremarkable. Flow voids of the major intracranial arterial vessels are identified. The imaged portions of the paranasal sinuses, mastoid air cells, and orbits are unremarkable. IMPRESSION: No acute abnormality and in particular no evidence of metastatic disease. ACT 112: Negative or not required by law. Electronically signed by: Marco A Dozier M.D. 01/19/2023 4:14 PM Thoracentesis/Paracentesis 01/21/23 11:40 Ultrasound guided thoracentesis. Clinical indication: Right-sided pleural effusion. Procedure: Procedure and risks were explained. Informed consent was obtained from the patient. A final timeout was completed. Sonographic examination revealed a small to moderate right pleural effusion. The skin of the right posterior chest was prepped and draped in sterile fashion. 1% buffered lidocaine was utilized for skin anesthesia. Utilizing ultrasound guidance, a 5 Vietnamese safety centesis catheter was introduced into the pleural space and 550 ml of yellow fluid was drained and sent to the lab. Ultrasound images were obtained. The catheter was removed. Post procedure scanning revealed significant decrease in the size of the pleural effusion. Postprocedural chest x-ray showed no pneumothorax. Complication: No immediate. Contract Project Manager: Krishna Eldridge PA-C. IMPRESSION: Ultrasound guided thoracentesis as described above. Performed, dictated, and signed by Krishna Eldridge PA-C; to be co-signed by Dr. Marco A Dozier. Chest X-Ray 01/21/23 13:26 XR chest 1V not portable HISTORY: 67 years-old Female s/p rt thora right pleural effusion. COMPARISON: CTA chest 01/18/2023, Chest radiograph 01/05/2023 TECHNIQUE: PA view of the chest FINDINGS: Cardiac silhouette is enlarged. Pulmonary vascular congestion with reticular interstitial opacities. No pneumothorax. Decrease size of the small right pleural effusion with improved aeration of the right lung base. Degenerative changes of the shoulders and spine. IMPRESSION: 1. Cardiomegaly with pulmonary edema. 2. Small right pleural effusion has decreased in size status post thoracentesis. 3. Mildly improved aeration of the right lung base. 4. No postprocedural pneumothorax identified. ACT 112: Negative or not required by law. The above report was generated using voice recognition software. It may contain grammatical, syntax or spelling errors. Electronically signed by: Jon Lieberman M.D. 01/21/2023 1:45 PM
[2023-01-21] MEDS: PRAVASTATIN SOD 20 MG TAB PO SCH (19:38)
[2023-01-22] MEDS: PIPERACILLIN/TAZOBACTAM 4.5 GM in DEXTROSE 5% 100 ML IV SCH (05:04)
[2023-01-22] MEDS: LEVOTHYROXINE SODIUM 150 MCG TABLET PO SCH (05:04)
[2023-01-22] MEDS: ACETAMINOPHEN 325 MG TAB PO PRN (05:59)
[2023-01-22 06:58] LABS: Creatinine Clr Calc Pharmacy 95.1 ml/min; Est GFR (African American) 109.1 ml/min; Est GFR (Non-African American) 94.1 ml/min
[2023-01-22] MEDS: INSULIN ASPART PER UNIT CHARGE SC SCH (08:29)
[2023-01-22] MEDS: LANTUS PER UNIT CHARGE SQ SCH (08:30)
[2023-01-22] MEDS: FLUTICASONE FUROATE 100MCG 14 PUFFS/INHALER INH SCH (08:31)
[2023-01-22] MEDS: amLODIPine BESYLATE 5 MG TAB PO SCH (08:32)
[2023-01-22] MEDS: UMECLIDINIUM/VILANTEROL 62.5/25MCG 7 PUFFS/INHALER INH SCH (08:32)
[2023-01-22] MEDS: FOLIC ACID 1 MG TAB PO SCH (08:33)
[2023-01-22] MEDS: ASPIRIN 81 MG ECTAB PO SCH (08:33)
[2023-01-22] MEDS: EZETIMIBE 10 MG TABLET PO SCH (08:33)
[2023-01-22] MEDS: THIAMINE HCL 100 MG TAB PO SCH (08:34)
[2023-01-22] MEDS: MULTIVITAMIN TAB PO SCH (08:34)
[2023-01-22] MEDS: METOPROLOL SUCC 25MG EXT REL TAB PO SCH (08:34)
[2023-01-22] MEDS: FUROSEMIDE 40 MG TAB PO SCH (08:34)
[2023-01-22 11:31] VITALS: BP 113/65; TEMP 98.1; O2SAT 92
--- NOTE | 2023-01-22 12:06 | Pulmonology Progress Note ---
Date of Service January 22, 2023 Assessment & Plan (1) Acute and chronic respiratory failure with hypoxia: (2) Pleural effusion, right: (3) Metastatic lung cancer (metastasis from lung to other site): (4) CHF (congestive heart failure): Heart failure chronicity: acute on chronic Heart failure type: unspecified Qualified Code(s): I50.9 - Heart failure, unspecified (5) COPD (chronic obstructive pulmonary disease): Plan IMPRESSION: 67-year-old female with metastatic adenocarcinoma of the lung presenting with acute on chronic hypoxic respiratory failure in the setting of RIGHT-sided pleural effusion and concerning CT findings in the RIGHT lower lobe. RECOMMENDATIONS: 1. Acute on chronic hypoxic respiratory failure - * 3 L NC at this time. This is the patient's baseline. * Likely multifactorial in the setting of the COPD patient with CHF, pleural effusion, and lung CA. * Sputum cultures with normal dunia. * Continue to encourage incentive spirometry. * Would encourage the patient to be out of bed and ambulating as tolerated as well. 2. RIGHT-sided pleural effusion - * s/p Thoracentesis yesterday. * Reports some improvement in her breathing today. * Pleural fluid suggestive of Exudative effusion per Lights criteria. Likely representing malignant pleural effusion. * Would continue with the patient's Lasix dosing for now. Would not escalate dosing as the effusion appears relatively stable from last hospitalization. 3. Metastatic adenocarcinoma of the lung - * Patient to have follow-up appointment with oncology on Thursday to establish goals of care moving forward as well as treatment options. * Will defer to oncology for treatment plan moving forward. 4. CHF - * Continue current Lasix dosing. 5. COPD - * Will place the patient on her home inhalers. * She continues to be without bronchospastic breath sounds, significant SOB, or cough. 6. BHAVIK - * Continue to utilize home CPAP settings. Thank you for allowing us to participate in the care of this patient. Pulmonary medicine will sign off at this time. Admission and Anticipated Discharge Date Admission Date: January 18, 2023 Supervising Physician Co-Signing Physician Notes I saw and evaluated the patient with Jc Anthony PA-C, and agree with findings and plan as documented in the note. Patient seen and examined at bedside. No acute distress She was saturating 95-96% on 4 l nasal cannula. I went down to 2 L Advised the patient to keep O2 saturation between 90-92% Denies any chest pain She says she is feeling much better after the fluid was removed. Fair appetite No nausea vomiting Constitutional: No acute distress HEENT: EOMI, PERRLA Respiratory system: Decreased air entry on the right side, no wheeze, no rhonchi, positive crackles bilateral lower lobes CVS: S1-S2 positive, no murmurs or gallops Abdomen: Soft, nontender, nondistended, positive bowel sounds x4, obese Extremities: +2 pulses bilaterally radialis/ dorsalis pedis, no cyanosis, +1 pitting edema bilateral lower extremity Neuro: Awake alert oriented x3 Psych: Normal mood and affect G/U: No Dominguez Plan: CT chest shows right lower lobe opacities. They have been present since October of this year Patient had right lower lobe adenocarcinoma s/p SBRT approximately a year ago. She had a liver biopsy recently which showed metastatic adenocarcinoma I personally think the opacities in the right lower lobe are worsening of underlying adenocarcinoma of the lung rather than pneumonia MRI of the brain was negative for metastatic disease. S/p thoracentesis 01/21/2023, 550 mL fluid was removed, exudative as per lights criteria Pleural fluid: LDH 230, protein 4.2 Recommend following up cytology Case was discussed with Dr. Zimmer No further recommendation from pulmonary perspective We will sign off, please call directly with any questions Please note the above document was generated using voice recognition software. It may contain grammatical, syntax or spelling errors.Any formal questions or concerns about the content, text or information contained within the body of this dictation should be directly addressed to the provider for clarification. Subjective Patient is seen and evaluated at bedside. She reports improvement in shortness of breath after thoracentesis performed. She is back to her baseline and is hoping to be discharged home soon. Review of Systems Review of Systems: A complete 6 point review of systems was reviewed with the patient with pertinent positives and negatives as per history of present illness. All else were negative. Physical Exam Physical Exam: VITAL SIGNS - Vital signs and nursing notes were reviewed. GENERAL - 67-year-old female appearing her stated age who is in no acute distress. Communicates well with provider and answers questions appropriately. MOUTH/OROPHARYNX - Without perioral cyanosis. Buccal mucosa pink and moist. LUNGS - Auscultation reveals diminished breath sounds at the bases, RIGHT > left. CARDIAC - RRR with S1/S2. No murmur, rubs, or gallops appreciated. ABDOMEN - Abdominal inspection demonstrates an obese abdomen. BS normoactive all four quadrants. No tenderness, palpable masses, or ascites noted. PSYCH - A&Ox3 and cooperates fully with examiner. Pt is very pleasant and interacts well with examiner. Skin: no rashes, warm and dry Lymphatic: no cervical or axillary lymphadenopathy Results & Data Results & Data Vital Signs (Past 12 Hours) Vital Signs Temp Pulse Pulse Resp BP BP Pulse Ox 01/22/23 08:00 01/22/23 08:00 70 01/22/23 11:30 36.7 C 69 20 113/65 92 01/22/23 08:08 36.8 C 64 20 107/56 L 95 01/22/23 02:36 36.4 C L 65 18 102/66 94 O2 Del Method O2 Flow Rate 01/22/23 08:00 Nasal Cannula 4 01/22/23 08:00 01/22/23 11:30 Nasal Cannula 2.5 01/22/23 08:08 Nasal Cannula 4 01/22/23 02:36 Nasal Cannula 4 Laboratory Results 01/21/23 07:12 01/22/23 05:24 PG Care Time/CCT Total # of Minutes Spent Total Time Spent with Patient: Total time spent is greater than 50% in coordination of care (as documented) at patient's floor/unit and/or counseling patient: Coding Level of Care Code 63128 SUB INP/OBS CARE 2/35MIN Diagnoses Acute and chronic respiratory failure with hypoxia J96.21 Pleural effusion, right J90 Metastatic lung cancer (metastasis from lung to other site) C34.90 CHF (congestive heart failure) I50.9 Heart failure chronicity: acute on chronic Heart failure type: unspecified COPD (chronic obstructive pulmonary disease) J44.9
[2023-01-22 12:26] VITALS: PULSE 69
--- NOTE | 2023-01-22 16:57 | Discharge Summary ---
Date of Service January 22, 2023 Admission HPI Per Admitting Provider History obtained from patient, family, and records. Medical history significant for chronic diastolic heart failure (EF 60-65%, TTE 2020), CAD/PVD as per records, hypertension, hyperlipidemia, chronic respiratory failure secondary to COPD on home O2, metastatic lung cancer status post radiation, DM 2 on oral medications, hypothyroidism, chronic anemia (baseline hemoglobin 10-11), history of melanoma, possible alcohol abuse as per records, past tobacco abuse. Recent confinement 2 weeks ago for acute on chronic respiratory failure secondary to decompensated heart failure. CT chest at time of confinement showed 1. Cardiomegaly with pulmonary edema, small left and moderate right pleural effusions. 2. No pulmonary emboli identified. 3. Progressive right basilar consolidation with obscuration of the known right lower lobe lesion. 4. Pathologic mediastinal and hilar lymphadenopathy appears stable. 5. Hepatic and osseous metastatic disease redemonstrated. A few days after discharge, patient noted worsening shortness of breath noted at home without chest pain complaints. Some sinus drainage with junky cough symptoms. No fever, no chills, no fluid retention. Denies aspiration. O2 sat 60s upon arrival at the ER. Solu-Medrol and neb treatment administered for possible COPD exacerbation. 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 Admission Exam Per Admitting Provider GENERAL: Comfortable, morbidly obese, pleasant, no respiratory distress SKIN: Normal color, warm HEENT: [place] palpebral conjunctivae, no ptosis, dry buccal mucosa, nasal cannula in place NECK : Supple, short neck, no tenderness CHEST : Decreased breath sounds, no tenderness HEART : RRR, no obvious murmurs ABDOMEN: Some distention, nontender EXTREMITIES : No LE swelling, no LE tenderness, no other conspicuous deformities noted NEUROLOGIC : Coherent, no facial asymmetry, no other gross focality Principal Diagnosis Acute on chronic respiratory failure with hypoxia and hypercapnia Chronic oxygen dependency--on 3 L at baseline Multifactorial secondary to COPD, CHF, pleural effusion, lung cancer, suspected postobstructive pneumonia, BHAVIK Likely malignant pleural effusion Status post thoracentesis on 01/21/2023 (550 cc removal). Discharge Exam Physical Exam: Vitals signs as noted above General Appearance:Morbidly Obese, chronic ill appearing, no apparent distress Head: normocephalic, Atraumatic Eyes: normal inspection, EOMI Neck: supple, Trachea midline Respiratory/Chest: Decreased breath sounds at bases, No accessory muscle use Cardiovascular: S1, S2, No murmur Abdomen/GI:Soft, Non tender, Bowel sounds present Extremities/Musculoskeletal:normal inspection, 1+ pedal edema Neurologic/Psych:AAOX3, grossly no focal neurological deficits Skin: normal color, warm Discharge Data Allergies Allergy/AdvReac Type Severity Reaction Status Date / Time tetracycline AdvReac Mild HEADACHE Verified 01/18/23 20:12 Consultations 01/18/23 21:39 ED Decision to Admit Stat 01/19/23 06:02 Consult Pulmonology Routine Ordered Studies 01/18/23 19:38 CT angio chest PE protocol Stat 01/19/23 12:10 MRI Brain [MR brain wo/w con] Routine 01/21/23 11:40 IR thoracentesis wo tube US Routine Hospital Course (1) Acute and chronic respiratory failure with hypercapnia: Acute on chronic respiratory failure with hypoxia and hypercapnia Chronic oxygen dependency--on 3 L at baseline Likely malignant pleural effusion No signs of COPD exacerbation --CTA on admission:No acute pulmonary embolism. Airspace consolidation at the RIGHT lung base, concerning for aspiration pneumonia. Mild-moderate RIGHT parapneumonic effusion. Right pleural effusion is essentially unchanged in size from prior exam. Pulmonary nodules are unchanged. Osseous metastatic disease again noted. -- Respiratory Biofire: Negative -- Normal procalcitonin, lactate --Blood cultures negative to date --Sputum culture negative During the hospitalization, pulmonology was consulted Patient underwent thoracentesis on 01/21/2023 (550 cc removal) by IR Post- Procedure chest x-ray showed decrease in pleural effusion. Patient oxygenation remained stable at 2 to 3 L of oxygen by nasal cannula. Patient to follow-up with oncology a day after discharge from the hospital. An appointment was made with her primary care doctor as well. All the medication were continued as previously. Please note the above document was generated using voice recognition software. It may contain grammatical, syntax or spelling errors. Any formal questions or concerns about the content, text or information contained within the body of this dictation should be directly addressed to the provider for clarification Total Time Total Time Spent Total Time Spent (In Minutes): 45 Total Time Includes: Examination of the Patient, Discharge Planning, Medication Reconciliation, Communication With Other Providers and Other Discharge Plan Discharge Items Patient Disposition: Home - Self-Care Reason For Visit: RESP FAILURE Discharge Diagnosis: Acute on chronic respiratory failure with hypoxia and hypercapnia Chronic oxygen dependency--on 3 L at baseline Multifactorial secondary to COPD, CHF, pleural effusion, lung cancer, suspected postobstructive pneumonia, BHAVIK Likely malignant pleural effusion Status post thoracentesis on 01/21/2023 (550 cc removal). Activity: Resume your previous activity Non-emergency contact: Primary Care Provider Call non-emergency contact if: you have any medication questions and your symptoms worsen Follow-up/Referrals: Bipin Ramos MD [Primary Care Provider] - (Date & Time 01/26/2023 3:20 PM Provider Bipin Ramos MD Department Family [facility] ) Diet: Regular Addtl Attending Provider Instructions: Please follow-up with oncology as scheduled for tomorrow. Please follow-up with your primary care doctor. An appointment will be set up for you for next week. No changes have been made to your medication regimen. You had 550 cc of pleural fluid removed on 01/21/2023. Pending Studies at Discharge: No Stand-Alone Forms: My [facility] [employer] [place], Smoking Cessation Medications and DC Order Prescriptions: Continued albuterol sulfate [Ventolin HFA] 90 mcg/actuation HFA aerosol inhaler 2 puff inhalation Q4 PRN (Reason: Wheezing) metoprolol succinate 25 mg tablet extended release 24 hr 12.5 mg PO BID aspirin 81 mg Tablet,Delayed Release (Dr/Ec) 81 mg PO QAM furosemide [Lasix] 40 mg tablet 40 mg PO QAM Qty: 30 0RF metformin 500 mg tablet 500 mg PO BIDM amlodipine 2.5 mg tablet 2.5 mg PO DAILY ezetimibe 10 mg tablet 10 mg PO DAILY Black Elderberry 1 tab PO QAM levothyroxine 150 mcg tablet 150 mcg PO QAM turmeric 400 mg Capsule 400 mg PO DAILY potassium chloride 10 mEq tablet extended release 10 meq PO DAILY Qty: 30 0RF Trelegy Ellipta 100-62.5-25 mcg blister with device 1 inh INHALATION DAILY pravastatin 20 mg tablet 20 mg PO HS Discharge Orders: Discharge Order (Routine); Ordered 01/22/23 Ordered By: Arnulfo Zimmer Admission Data Admit Date/Time: 01/18/23 22:28 Attending Provider: Arnulfo Zimmer Admit Provider: Jose Brito Primary Care Provider: Bipin Ramos Other Providers: Arcadio Christensen ; Aris Jacobsen ; Jc Anthony ; Jonathan So ; Palmer Lucero ; Frank El ; Kirti Hui Other Interventions: Discharge Summary Assessment (RN) Last Done: 01/22/23 12:25
== END 2023-01-22 13:03 | disposition home or self-care (01) | DRG 180 ==
LOC: ED 19:06 → SUATTDRO 22:28 → 2W 22:28

== ENCOUNTER 2023-01-30 08:01 | Inpatient (IN) ==
--- NOTE | 2023-01-30 08:14 | Emergency Department Note ---
Impression & Plan Acute hypoxemic respiratory failure, Pleural effusion on right, COPD (chronic obstructive pulmonary disease) ED Provider Note NAME: NATO PETTIT AGE: 67 SEX: F : 1955 ARRIVES VIA: Walk-In INFORMANT: [Patient][, ] ED PROVIDER(S): Magdiel Musa MD CHIEF COMPLAINT: Shortness of breath MEDICAL DECISION MAKING: Patient presents due to concern for shortness of breath. The patient was noted to be significantly hypoxic on her normal oxygen at 77%. IV was established blood was obtained along with an EKG VBG BNP. The patient was ordered a DuoNeb treatment in addition to methylprednisolone. I do suspect given the patient has decreased breath sounds at the right base that she has reaccumulation of fluid in her right lower chest. The patient did have a prior thoracentesis. Chest x-ray does show right-sided pleural effusion. Pain with a hemoglobin 11.2. Platelet count is unremarkable. Patient's blood work shows white count of 14 VBG shows normal pH with likely chronic PCO2 of 51. Magnesium is slightly low. BNP not elevated. Troponin is not elevated procalcitonin elevated. Deferring antibiotics to inpatient team as the patient's Pro-Matt not elevated. Urinalysis does not show evidence of infection. Patient was ordered IV Lasix. I did briefly discuss the case with on-call dock clerk Dr. Martin who stated that given that the patient has had a prior paracentesis he recommends seeing whether or not the patient would benefit from paracentesis before thoracentesis. I did convey this to the on-call hospitalist service. I did speak with the on-call hospital service BOAZ Yusuf and the patient was admitted by Dr. Edmondson. Critical Care: I have personally spent 48 minutes of critical care time in direct management of this patient. This includes bedside care, interpretation of diagnostic studies, and testing, discussion with consultants, patient, and family members, and other require inpatient management activities. This 48 minutes is in excess of all separately billable procedures. Prior /Outside records reviewed: I did review a recent discharge summary from Dr. Sami Israel from 09/24. Patient has known history of diastolic heart failure CAD hypertension hyperlipidemia respiratory failure secondary to COPD on home O2 with metastatic lung CA s/p radiation treatment. Patient did have a CTA completed during her most recent admission which noted no acute PE but did show consolidation in the right lung base concerning for aspiration with associated right parapneumonic effusion. Patient did have a thoracentesis completed by IR on January 21 with 550 cc removed. Patient was discharged on 2 to 3 L of oxygen by nasal cannula. Differential diagnosis: Reactive airway disease, pneumonia, pneumothorax, COPD, CHF, infections, cardiac ischemia, pulmonary embolism, musculoskeletal, gastrointestinal, as well as other pathologies. Diagnostics, as interpreted by me: ECG: Normal sinus rhythm, rate of 67 normal intervals normal axis T wave versions anteriorly with no ST elevations. No significant change from comparison EKG January 18, 2023 Cardiac monitoring: An order was placed for continuous cardiac monitoring. The monitor shows a rate of 68 with sinus rhythm. [Patient was placed on pulse oximetry] Medical decision rules: [none] Imaging studies: See below I informally reviewed the patient's chest x-ray which does show a right-sided pleural effusion. HPI: Patient presents due to concern for shortness of breath. The patient states that she noticed some of that yesterday but seem to worsen this morning as she got up to use the bathroom. Patient states it did not wake her from sleep. The patient does have a history of metastatic lung cancer and has received radiation treatment and is pending chemo within the next week or so per patient. The patient is yet to follow-up with a dock clerk Dr. Colon with [facility] this upcoming Thursday. The patient has had occasional cough that she describes as snotty. Patient denies any chest pains. The patient does have chronic leg swelling which is unchanged. Patient is compliant with her medications. The patient had turned up her oxygen to 4 L and did use her trilogy this morning but without significant improvement in symptoms. PAST MEDICAL HISTORY: [See Below] PAST SURGICAL HISTORY: [See Below] SOCIAL HISTORY: [See Below] HOME MEDICATIONS: [See Below] ALLERGIES: [See Below] VITALS: [See Below] PHYSICAL EXAMINATION: GENERAL: NAD, [wearing a mask,] non-toxic. Older than stated age. EYE EXAM: Normal conjunctiva. PERRL, no anisocoria and EOM's grossly intact w/o pain. NECK: Supple, no nuchal rigidity, no adenopathy, non-tender. No signs of meningismus. FROM of the neck with good chin to chest and neck extension. No stridor. LUNGS: Bibasilar crackles with decreased breath sounds right base. Scant wheezing. Normal chest wall mechanics. HEART: NSR, no MRG. ABDOMEN: Abdomen soft, non-tender, no masses, no rebound or guarding. BACK: No CVA TTP. SKIN: No rashes and no bruising. UPPER EXTREMITIES: Upper extremities are grossly normal. LOWER EXTREMITIES: Grossly normal, trace symmetric pretibial edema without any calf pain. Negative Homans' sign bilaterally NEURO EXAM: A&O x3, cranial nerves II-XII grossly intact, normal speech, moves all 4 extremities. Past Med/Surg History Medical History Alcohol use CAD (coronary artery disease) NSTEMI 2008 - moderate nonobstructive disease, no stenting Carotid stenosis Chronic diastolic (congestive) heart failure Chronic respiratory failure with hypoxia Constipation COPD, group D, by GOLD 2017 classification Diabetes mellitus, type II HLD (hyperlipidemia) HTN (hypertension) Hypothyroid Metastatic lung cancer (metastasis from lung to other site) (12/11/22) Obesity (BMI 30.0-34.9) BHAVIK on CPAP Primary cancer of right lower lobe of lung (01/31/22) s/p radiation Pulmonary hypertension Surgical History S/P cholecystectomy Family History Mother , age 69 Heart disease Rheumatoid arthritis Osteoarthritis Father , age 69 Myocardial infarction Asthma COPD (chronic obstructive pulmonary disease) Sister , age 29 Lung disease Other Diabetes Social History Smoking Status: Former smoker Tobacco Type: Cigarettes Age Started Using Tobacco: 18; Age Quit Using Tobacco: 60; packs per day: 2; Second Hand Exposure: No; Do You Dip or Chew Tobacco: No; Hx Alcohol Use: Yes Alcohol type: beer Alcohol type Comment: 3-5 coors light daily Alcohol Intake Frequency: 4 or More x per/Week Hx Substance Use: No Preferred Language: Setswana Communication Ability: Effective Heading Up Machine Operator Required: No Beliefs That Will Affect Care: None marital status: / Current Living Situation: Alone current occupational status: retired and disabled 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 [employer] How many Children do You have: 3 Feels Safe at Home: Yes caffeine: Yes (Diet pepsi - 4 cans/day) Assistive Devices: CPAP and Oxygen - Continuous Allergies Allergies Allergy/AdvReac Type Severity Reaction Status Date / Time tetracycline AdvReac Mild HEADACHE Verified 01/18/23 20:12 Home Meds Home Medications Medication Instructions Recorded Confirmed aspirin 81 mg tablet,delayed 81 mg PO QAM 01/13/19 01/30/23 release Black Elderberry 1 tab PO QAM 03/18/21 01/30/23 amlodipine 2.5 mg tablet 2.5 mg PO DAILY 03/18/21 01/30/23 ezetimibe 10 mg tablet 10 mg PO DAILY 03/18/21 01/30/23 metformin 500 mg tablet 500 mg PO BIDM 03/18/21 01/30/23 albuterol sulfate 90 mcg/actuation 2 puff inhalation Q4 PRN Wheezing 03/19/22 01/30/23 aerosol inhaler (Ventolin HFA) levothyroxine 150 mcg tablet 150 mcg PO QAM 10/24/22 01/30/23 turmeric 400 mg capsule 400 mg PO DAILY 10/24/22 01/30/23 metoprolol succinate 25 mg 12.5 mg PO BID 12/02/22 01/30/23 tablet,extended release 24 hr fluticasone fur. 100 mcg-umeclid 1 inh inhalation DAILY 01/03/23 01/30/23 62.5 mcg-vilant 25 mcg inhalat.powder (Trelegy Ellipta) pravastatin 40 mg tablet 40 mg PO HS 01/30/23 01/30/23 Previous Rx's Medication Instructions Recorded furosemide 40 mg tablet (Lasix) 40 mg PO QAM #30 tabs 01/16/19 potassium chloride 10 mEq 10 meq PO DAILY #30 tabs 10/30/22 tablet,extended release Results & Data (ED) Vital Signs Vital Signs - 24 hr 01/30/23 08:05 01/30/23 08:17 01/30/23 08:42 Temperature 36.4 C L Temperature Source Temporal Artery Scan Pulse Rate 81 71 Pulse Rate [Apical] Pulse Rhythm Regular Pulse Strength Normal Respiratory Rate 26 H Respiratory Effort / Characteristics Respiratory Depth Normal Blood Pressure 137/74 Blood Pressure [Left Arm] Blood Pressure Mean 95 Blood Pressure Mean [Left Arm] Blood Pressure Position Sitting Pulse Oximetry 77 L 90 Oxygen Delivery Method Nasal Cannula Nasal Cannula Oxygen Flow Rate 4 5 Sepsis Recent Fever Within 48 Hours No Sepsis New/Unexplained Change in Mental Status No Sepsis Action Taken by Nursing No Action Required 01/30/23 08:42 01/30/23 08:42 01/30/23 09:38 Temperature Temperature Source Pulse Rate Pulse Rate [Apical] 71 Pulse Rhythm Pulse Strength Respiratory Rate 18 Respiratory Effort / Characteristics Labored Respiratory Depth Blood Pressure Blood Pressure [Left Arm] 129/85 Blood Pressure Mean Blood Pressure Mean [Left Arm] 99 Blood Pressure Position Pulse Oximetry 88 L Oxygen Delivery Method Oxymask Oxymask Oxygen Flow Rate 6 5 Sepsis Recent Fever Within 48 Hours Sepsis New/Unexplained Change in Mental Status Sepsis Action Taken by Care Home Medications Current Medication List: was personally reviewed by me Laboratory Data Attestation: I reviewed the patient's lab results. 01/30/23 08:39 01/30/23 08:39 Lab Results 01/30/23 01/30/23 01/30/23 Range/Units 08:39 08:39 08:39 WBC 14.73 H (4.8-10.8) K/ul RBC 3.84 L (4.20-5.40) M/uL Hgb 11.2 L (12.0-16.0) g/dl Hct 35.9 L (37.0-47.0) % MCV 93.5 (80.0-100.0) fL MCH 29.2 (25.0-34.0) pg MCHC 31.2 L (32.0-36.0) g/dL RDW Std Deviation 50.9 H (36.4-46.3) fL RDW Coeff of Naa 15.0 H (11.5-14.5) % Plt Count 292 (130-400) K/uL MPV 10.6 (9.4-12.4) fL Immature Gran % (Auto) 1.7 % Neut % (Auto) 84.2 % Lymph % (Auto) 6.7 % [place] % (Auto) 4.4 % Eos % (Auto) 2.4 % Baso % (Auto) 0.6 % Neut # (Auto) 12.40 H (1.40-6.50) K/uL Lymph # (Auto) 0.98 L (1.2-3.4) K/uL [place] # (Auto) 0.65 H (0.11-0.59) K/uL Eos # (Auto) 0.36 (0-0.50) K/uL Baso # (Auto) 0.09 (0-0.2) K/uL Immature Gran # (Auto) 0.25 H (0.01-0.20) K/uL PT 10.9 (9.0-12.0) Seconds INR 1.0 (0.9-1.1) APTT 27.6 (21.0-31.0) Seconds PTT Ratio 1.0 VBG pH (7.36-7.41) VBG pCO2 (38-50) mmHg VBG pO2 mmHg VBG HCO3 mmol/L VBG O2 Saturation % VBG Base Excess mEq/L Sodium 138 (136-145) mmol/L Potassium 4.0 (3.5-5.1) mmol/L Chloride 97 L (98-107) mmol/L Carbon Dioxide 30 (21-32) mmol/L Anion Gap 11 (3-11) BUN 11 (6-23) mg/dl Creatinine 0.52 L (0.6-1.2) mg/dl Est Cr Clr Drug Dosing Not Reportable Est GFR ( Amer) 116.2 ml/min Est GFR (Non-Af Amer) 100.3 ml/min BUN/Creatinine Ratio 21.2 H (10-20) Glucose 155 H (70-99(Fasting)) mg/dl Calcium 9.2 (8.6-10.3) mg/dl Magnesium 1.3 L (1.7-2.4) mg/dl Total Bilirubin 0.3 (0.2-1.0) mg/dl AST 12 L (13-39) U/L ALT 16 (7-52) U/L Alkaline Phosphatase 100 (34-104) U/L Troponin I High Sens 10.2 (0-14) pg/ml B-Natriuretic Peptide (0-100) pg/ml Total Protein 7.4 (6.0-8.3) gm/dl Albumin 4.0 (3.4-5.0) gm/dl Globulin 3.4 (2.5-4.0) gm/dl Albumin/Globulin Ratio 1.2 (0.9-2) Procalcitonin (0-0.5) ng/ml Urine Color Urine Appearance (Clear) Urine pH (4.5-7.5) Ur Specific [place] (1.000-1.030) Urine Protein (Negative) Urine Glucose (UA) (Negative) Urine Ketones (Negative) Urine Blood (Negative) Urine Nitrite (Negative) Urine Bilirubin (Negative) Urine Urobilinogen (Negative) Ur Leukocyte Esterase (Negative) SARS-CoV-2, RNA, NAAT (NEGATIVE) 01/30/23 01/30/23 01/30/23 Range/Units 08:39 08:39 08:39 WBC (4.8-10.8) K/ul RBC (4.20-5.40) M/uL Hgb (12.0-16.0) g/dl Hct (37.0-47.0) % MCV (80.0-100.0) fL MCH (25.0-34.0) pg MCHC (32.0-36.0) g/dL RDW Std Deviation (36.4-46.3) fL RDW Coeff of Ana (11.5-14.5) % Plt Count (130-400) K/uL MPV (9.4-12.4) fL Immature Gran % (Auto) % Neut % (Auto) % Lymph % (Auto) % [place] % (Auto) % Eos % (Auto) % Baso % (Auto) % Neut # (Auto) (1.40-6.50) K/uL Lymph # (Auto) (1.2-3.4) K/uL [place] # (Auto) (0.11-0.59) K/uL Eos # (Auto) (0-0.50) K/uL Baso # (Auto) (0-0.2) K/uL Immature Gran # (Auto) (0.01-0.20) K/uL PT (9.0-12.0) Seconds INR (0.9-1.1) APTT (21.0-31.0) Seconds PTT Ratio VBG pH 7.43 H (7.36-7.41) VBG pCO2 51 H (38-50) mmHg VBG pO2 57 mmHg VBG HCO3 34 mmol/L VBG O2 Saturation 87.0 % VBG Base Excess 8.0 mEq/L Sodium (136-145) mmol/L Potassium (3.5-5.1) mmol/L Chloride (98-107) mmol/L Carbon Dioxide (21-32) mmol/L Anion Gap (3-11) BUN (6-23) mg/dl Creatinine (0.6-1.2) mg/dl Est Cr Clr Drug Dosing Est GFR ( Amer) ml/min Est GFR (Non-Af Amer) ml/min BUN/Creatinine Ratio (10-20) Glucose (70-99(Fasting)) mg/dl Calcium (8.6-10.3) mg/dl Magnesium (1.7-2.4) mg/dl Total Bilirubin (0.2-1.0) mg/dl AST (13-39) U/L ALT (7-52) U/L Alkaline Phosphatase (34-104) U/L Troponin I High Sens (0-14) pg/ml B-Natriuretic Peptide 70 (0-100) pg/ml Total Protein (6.0-8.3) gm/dl Albumin (3.4-5.0) gm/dl Globulin (2.5-4.0) gm/dl Albumin/Globulin Ratio (0.9-2) Procalcitonin (0-0.5) ng/ml Urine Color Urine Appearance (Clear) Urine pH (4.5-7.5) Ur Specific [place] (1.000-1.030) Urine Protein (Negative) Urine Glucose (UA) (Negative) Urine Ketones (Negative) Urine Blood (Negative) Urine Nitrite (Negative) Urine Bilirubin (Negative) Urine Urobilinogen (Negative) Ur Leukocyte Esterase (Negative) SARS-CoV-2, RNA, NAAT NEGATIVE (NEGATIVE) 01/30/23 01/30/23 Range/Units 08:39 09:21 WBC (4.8-10.8) K/ul RBC (4.20-5.40) M/uL Hgb (12.0-16.0) g/dl Hct (37.0-47.0) % MCV (80.0-100.0) fL MCH (25.0-34.0) pg MCHC (32.0-36.0) g/dL RDW Std Deviation (36.4-46.3) fL RDW Coeff of Naa (11.5-14.5) % Plt Count (130-400) K/uL MPV (9.4-12.4) fL Immature Gran % (Auto) % Neut % (Auto) % Lymph % (Auto) % [place] % (Auto) % Eos % (Auto) % Baso % (Auto) % Neut # (Auto) (1.40-6.50) K/uL Lymph # (Auto) (1.2-3.4) K/uL [place] # (Auto) (0.11-0.59) K/uL Eos # (Auto) (0-0.50) K/uL Baso # (Auto) (0-0.2) K/uL Immature Gran # (Auto) (0.01-0.20) K/uL PT (9.0-12.0) Seconds INR (0.9-1.1) APTT (21.0-31.0) Seconds PTT Ratio VBG pH (7.36-7.41) VBG pCO2 (38-50) mmHg VBG pO2 mmHg VBG HCO3 mmol/L VBG O2 Saturation % VBG Base Excess mEq/L Sodium (136-145) mmol/L Potassium (3.5-5.1) mmol/L Chloride (98-107) mmol/L Carbon Dioxide (21-32) mmol/L Anion Gap (3-11) BUN (6-23) mg/dl Creatinine (0.6-1.2) mg/dl Est Cr Clr Drug Dosing Est GFR ( Amer) ml/min Est GFR (Non-Af Amer) ml/min BUN/Creatinine Ratio (10-20) Glucose (70-99(Fasting)) mg/dl Calcium (8.6-10.3) mg/dl Magnesium (1.7-2.4) mg/dl Total Bilirubin (0.2-1.0) mg/dl AST (13-39) U/L ALT (7-52) U/L Alkaline Phosphatase (34-104) U/L Troponin I High Sens (0-14) pg/ml B-Natriuretic Peptide (0-100) pg/ml Total Protein (6.0-8.3) gm/dl Albumin (3.4-5.0) gm/dl Globulin (2.5-4.0) gm/dl Albumin/Globulin Ratio (0.9-2) Procalcitonin 0.15 (0-0.5) ng/ml Urine Color Yellow Urine Appearance Clear (Clear) Urine pH 5.5 (4.5-7.5) Ur Specific [place] 1.006 (1.000-1.030) Urine Protein Negative (Negative) Urine Glucose (UA) Negative (Negative) Urine Ketones Negative (Negative) Urine Blood Negative (Negative) Urine Nitrite Negative (Negative) Urine Bilirubin Negative (Negative) Urine Urobilinogen Negative (Negative) Ur Leukocyte Esterase Negative (Negative) SARS-CoV-2, RNA, NAAT (NEGATIVE) Administered Medications Albuterol (Albuterol 0.083% Nebu Soln 3 Ml Vial) 2.5 mg NEB QID NABEEL; Protocol Stop: 03/01/23 12:59 Last Admin: 01/30/23 12:00 Dose: 2.5 mg Documented By: ANITA Fluticasone/Vilanterol (Fluticasone/Vilanterol 200/25mcg 14 Puffs/Inhaler) 1 puffs INH DAILY NABEEL Stop: 03/01/23 10:59 Last Admin: 01/30/23 12:01 Dose: 1 puffs Documented By: ANITA Azithromycin 500 mg/ Dextrose 255 mls @ 127.5 mls/hr IV Q24H NABEEL Stop: 02/06/23 10:44 Last Infusion: 01/30/23 13:27 Dose: 0 mls/hr Documented By: Admin: 01/30/23 11:31 Dose: 127.5 mls/hr Documented By: LINA Discontinued Medications Albuterol (Albut/Ipratrop 3mg/0.5mg Neb 3 Ml Vial) 3 ml NEB NOW STA; Protocol Stop: 01/30/23 08:23 Last Admin: 01/30/23 08:30 Dose: 3 ml Documented By: JUANY Albuterol (Albuterol 0.083% Nebu Soln 3 Ml Vial) Confirm Administered Dose 2.5 mg .ROUTE .STK-MED ONE Stop: 01/30/23 11:53 Last Admin: 01/30/23 12:01 Dose: 2.5 mg Documented By: ANITA Furosemide (Furosemide 40 Mg/4 Ml Vial) 40 mg IV ONE ONE Stop: 01/30/23 09:54 Last Admin: 01/30/23 10:48 Dose: 40 mg Documented By: JUANY Methylprednisolone (Methylprednisolone 125 Mg/2 Ml Vial) 125 mg IV NOW STA Stop: 01/30/23 08:23 Last Admin: 01/30/23 08:36 Dose: 125 mg Documented By: JUANY Imaging Data Radiologist's Impression: Chest X-Ray 01/30/23 08:22 XR chest 1V portable CLINICAL HISTORY: Dyspnea. Lung cancer. COMPARISON STUDY: Chest CT January 18, 2023. Chest radiograph January 21, 2023. FINDINGS: There is no pneumothorax. A small to moderate right pleural effusion has mildly increased since prior chest radiograph. There is associated right middle lower lung airspace opacity. Interstitial thickening has progressed. Cardiomegaly is unchanged. IMPRESSION: 1. [id number] right pleural effusion, increased since prior chest radi ograph. 2. Cardiomegaly with interstitial thickening suggestive of pulmonary edema. ACT 112: Negative or not required by law. Electronically signed by: Nehemias Holt M.D. 01/30/2023 9:22 AM Discharge Plan Visit Data Chief Complaint: Shortness of Breath/Dyspnea Stated Complaint: SOB ED Provider: Magdiel Musa Discharge Problem: Acute hypoxemic respiratory failure, Pleural effusion on right, COPD (chronic obstructive pulmonary disease) Patient Disposition: Admitted As Inpatient Discharge Instructions Interventions: ED Discharge Assessment Last Done: 01/30/23 12:58
[2023-01-30] MEDS ORDERED: methylPREDNISolone 125 MG/2 ML VIAL IV STA (08:22)
[2023-01-30] MEDS ORDERED: ALBUT/IPRATROP 3MG/0.5MG NEB 3 ML VIAL NEB STA (08:22)
[2023-01-30 08:54] LABS: HCO3 VBG 34 mmol/L; PCO2 VBG 51 mmHg (38-50); PO2 VBG 57 mmHg; pH VBG 7.43 (7.36-7.41)
[2023-01-30 08:59] LABS: Basophils # (auto) 0.09 K/uL (0-0.2); Basophils % (auto) 0.6 %; Eosinophils # (auto) 0.36 K/uL (0-0.50); Eosinophils % (auto) 2.4 %; Hematocrit (blood only) 35.9 % (37.0-47.0); Hemoglobin 11.2 g/dl (12.0-16.0); Immature Granulocytes # (auto) 0.25 K/uL (0.01-0.20); Immature Granulocytes % (auto) 1.7 %; Lymphocytes # (auto) 0.98 K/uL (1.2-3.4); Lymphocytes % (auto) 6.7 %; Mean Corpuscular Hemoglobin 29.2 pg (25.0-34.0); Mean Corpuscular Hgb Conc 31.2 g/dL (32.0-36.0); Mean Corpuscular Volume 93.5 fL (80.0-100.0); Mean Platelet Volume 10.6 fL (9.4-12.4); Monocytes # (auto) 0.65 K/uL (0.11-0.59); Monocytes % (auto) 4.4 %; Neutrophils % (auto) 84.2 %; Platelet Count 292 K/uL (130-400); RDW Standard Deviation 50.9 fL (36.4-46.3); Red Blood Count 3.84 M/uL (4.20-5.40); White Blood Count 14.73 K/ul (4.8-10.8)
--- NOTE | 2023-01-30 09:23 | XRay Report ---
XR chest 1V portable CLINICAL HISTORY: Dyspnea. Lung cancer. COMPARISON STUDY: Chest CT January 18, 2023. Chest radiograph January 21, 2023. FINDINGS: There is no pneumothorax. A small to moderate right pleural effusion has mildly increased s nan prior chest radiograph. There is associated right middle lower lung airspace opacity. Interstiti al thickening has progressed. Cardiomegaly is unchanged. IMPRESSION: 1. [id number] right pleural effusion, increased since prior chest radiograph. 2. Cardiomegaly with interstitial thickening suggestive of pulmonary edema. ACT 112: Negative or not required by law. Electronically signed by: Nehemias Holt M.D. 01/30/2023 9:22 AM
[2023-01-30 09:38] LABS: Appearance Urine Clear (Clear); Bilirubin Urine Negative (Negative); Blood Urine Negative (Negative); Color Urine Yellow; Glucose Urine UA Negative (Negative); Ketones Urine Negative (Negative); Leukocyte Esterase Urine Negative (Negative); Nitrite Urine Negative (Negative); Protein Urine Negative (Negative); Specific Gravity Urine 1.006 (1.000-1.030); Urobilinogen Urine Negative (Negative); pH Urine 5.5 (4.5-7.5)
[2023-01-30 09:46] LABS: Partial Thromboplastin Time 27.6 Seconds (21.0-31.0); Prothrombin Time 10.9 Seconds (9.0-12.0)
[2023-01-30 09:47] LABS: Alanine Aminotransferase 16 U/L (7-52); Albumin Globulin Ratio 1.2 (0.9-2); Alkaline Phosphatase 100 U/L (34-104); Anion Gap 11 (3-11); Aspartate Aminotransferase 12 U/L (13-39); BUN Creatinine Ratio 21.2 (10-20); Bilirubin,Total 0.3 mg/dl (0.2-1.0); Blood Urea Nitrogen 11 mg/dl (6-23); Calcium 9.2 mg/dl (8.6-10.3); Carbon Dioxide 30 mmol/L (21-32); Chloride 97 mmol/L (98-107); Est GFR (African American) 116.2 ml/min; Est GFR (Non-African American) 100.3 ml/min; Globulin 3.4 gm/dl (2.5-4.0); Glucose 155 mg/dl (70-99(Fasting)); Magnesium 1.3 mg/dl (1.7-2.4); Sodium 138 mmol/L (136-145); Total Protein 7.4 gm/dl (6.0-8.3)
[2023-01-30 09:53] LABS: Troponin I High Sensitivity 10.2 pg/ml (0-14)
[2023-01-30] MEDS ORDERED: FUROSEMIDE 40 MG/4 ML VIAL IV ONE ×3 (09:53→15:00)
[2023-01-30] MEDS ORDERED: POLYETHYLENE (MIRALAX) 17 GM PACK PO PRN (10:05)
[2023-01-30] MEDS ORDERED: ONDANSETRON INJ 2 MG/ML 2 ML VIAL IV PRN (10:05)
[2023-01-30] MEDS ORDERED: ALUMINUM/MAGNESIUM SUSP 30 ML UDC PO PRN (10:05)
[2023-01-30] MEDS ORDERED: MAGNESIUM HYDROXIDE SUSP 30 ML UDC PO PRN (10:05)
--- NOTE | 2023-01-30 10:15 | History & Physical Report ---
Date of Service January 30, 2023 Assessment & Plan (1) Metastatic lung cancer (metastasis from lung to other site): (2) Acute and chronic respiratory failure with hypoxia: (3) Pleural effusion, right: (4) COPD (chronic obstructive pulmonary disease): (5) BHAVIK on CPAP: (6) CAD (coronary artery disease): (7) Carotid stenosis: (8) CHF (congestive heart failure): (9) HTN (hypertension): (10) HLD (hyperlipidemia): (11) Diabetes mellitus, type II: (12) Hypothyroid: Plan 67-year-old female presents with shortness of breath. New diagnosis of metastatic adenocarcinoma of the lung with mets mets to bone and liver early January 2023. Symptoms appear to be exacerbated by acute on chronic CHF. Worsening right pleural effusion to be evaluated by pulmonary for thoracentesis or Pleurx cath placement. Diuresis with Lasix, BiPAP as needed antibiotics and nebulizers. Acute on chronic respiratory failure with hypoxia: SOB: Suspect multifactorial in the setting of COPD, CHF, right-sided pleural effusion and metastatic adenocarcinoma. Metastatic Lung Adenocarcinoma: Pleural effusion, right: Saw Dr. Kirby on 01/22; Reccomended Kaytruda and Radiation to left arm. Plan to start treatment in 3 weeks or so; awaiting further liver biopsy results H/O discussed possible eval for pleur-x drain Pulmonary consultation for eval for thoracentesis Leukocytosis: 14.73 Procalcitonin negative CXR in AM CHF: Suspect heart failure has been an exacerbating factor to her symptoms CXR small to moderate pleural effusion; increased from previous imaging. Pt on 6-8L oxymask in ED; SpO2 88% Received Lasix 40 mg IV in ED; will give additional dose at 1500 Takes Lasix 40 mg p.o. daily; switch to IV Starting 01/31; Lasix 40 mg IV BID COPD: BHAVIK on CPAP: Received Methylprednisone 125 IV in ED No wheezing on exam;will hold additional steroids for now; reassess in AM Nebulizer treatment QID and Q2 PRN along with Budesonide/ Inhaler sputum culture Will start emperic Azithromycin 500 mg IV QAM x 3 days; reassess abx pending sputum culture Pulmonary consultation CAD: Carotid stenosis: NSTEMI 2008; takes baby aspirin continue Chest x-ray suggestive of pulmonary edema along with small to moderate pleural effusion (see above under CHF) Last echo 11/06 EF 55 to 60%, G1 DD X, mild TR, mild LVH, right ventricle normal size HTN: Takes amlodipine; continue HLD: Takes Pravacol; continue Last Lipid panel: 10/06: TG 336, HDL 35, LDL 84 Diabetes mellitus type 2: Takes Zetia and metformin; hold while inpatient FSBS ACHS SSI while inpatient Diabetic diet Hypothyroidism: Takes Synthroid; continue Last TSH 08/05: 7.88 Last FT4 08/05: 1.2 Goals of Care conversation;counseling: Lengthy conversation held with patient and her daughter at bedside. Patient is at the beginning of her oncology journey with her initial appointment occurring last week. Hematology oncology did present the possibility of having palliative medicine presents and that was readdressed today in order to develop rapport along with providing symptom management and goals of care throughout her chemotherapy and radiation journey. Patient expressed that at this time she is aware of that service but would like to hold off on official consultation at this time until she is able to begin treatment and see how it affects her daily life. To note patient does live alone at home however does have her daughter providing support. Disposition: PCP: Dr. Ramos CODE STATUS: Full code VTE prophylaxis: Teds/SCD's for now pending possible thoracentesis. I spent a total of 87 minutes coordinating, documenting, and providing care for this patient excluding time spent in the performance of separately billed services. All of the aforementioned completed while collaborating with the assigned attending physician for a full treatment plan. Please see their addendum for further details. History of Present Illness Chief Complaint: SOB Primary Care Provider: Bipin Ramos MD Ms. Ga is a 67-year-old female that presents to the ED today with increasing shortness of breath that has been worsening over past 24 hours even with ambulation. SpO2 was in the high 60's on arrival to ED. Last night she did sleep and used her CPAP. She denies any swelling in her legs since DC, but does report productive cough with yello/rodríguez sputum. Patient has an unfortunate diagnosis recently made 01/26 of metastatic adenocarcinoma with metastasis to bone and liver. Patient has recent admission 01/18 to 01/22 for which pulmonary did evaluate her for acute on chronic respiratory failure and malignant right-sided pleural effusions. Thoracentesis performed 01/21. She did see Dr. Kirby after discharge and they are anticipating starting treatment over the next few weeks. Per review of outpatient records she was possibly a candidate for Keytruda with possible radiation to her left arm. There also was discussion regarding a pleur-x catheter depending on how frequent her effusions returned or worsened. Pt denies POZO, dizziness, fevers, chills, chest tightness, wheezing, abdominal pain, recent falls or trauma, no recent sick contacts. Additional past medical history includes diastolic congestive heart failure, COPD (on CPAP), carotid stenosis, [id number]-[id number] diabetes mellitus type 2, HTN, HLD, hypothyroidism and previous alcohol use. On examination, patient is sitting upright in her hospital bed and able to talk in full complete sentences. She is on 6 liters oxymask and her SpO2 88% and with speaking lengthy sentences she does drop to 86-87%. Throughout our interaction, patient began to get tired and more hypoxic; placed on HFNC. Due to increased O2 needs, pending pulmonary intervention; will place in ICU. Leukocytosis 14.73, Creatinine 0.5, procalcitonin negative. CXR reveals pulmonary edema and small to moderate pleural effusion on right side; appears worse compared to previous CXR.Suspect heart failure has been an exacerbating factor to her symptoms. Received Lasix 40 mg IV once in ED; will give another dose in a few hours; followed by BID dosing. Patient will be admitted for further evaluation and management. Please see A/P for further details. Allergies Allergy/AdvReac Type Severity Reaction Status Date / Time tetracycline AdvReac Mild HEADACHE Verified 01/18/23 20:12 Home Medications Medication Instructions Recorded Confirmed Type aspirin 81 mg tablet,delayed 81 mg PO QAM 01/13/19 01/30/23 History release furosemide 40 mg tablet (Lasix) 40 mg PO QAM #30 tabs 01/16/19 01/30/23 Rx Black Elderberry 1 tab PO QAM 03/18/21 01/30/23 History amlodipine 2.5 mg tablet 2.5 mg PO DAILY 03/18/21 01/30/23 History ezetimibe 10 mg tablet 10 mg PO DAILY 03/18/21 01/30/23 History metformin 500 mg tablet 500 mg PO BIDM 03/18/21 01/30/23 History albuterol sulfate 90 mcg/actuation 2 puff inhalation Q4 PRN Wheezing 03/19/22 01/30/23 History aerosol inhaler (Ventolin HFA) levothyroxine 150 mcg tablet 150 mcg PO QAM 10/24/22 01/30/23 History turmeric 400 mg capsule 400 mg PO DAILY 10/24/22 01/30/23 History potassium chloride 10 mEq 10 meq PO DAILY #30 tabs 10/30/22 01/30/23 Rx tablet,extended release metoprolol succinate 25 mg 12.5 mg PO BID 12/02/22 01/30/23 History tablet,extended release 24 hr fluticasone fur. 100 mcg-umeclid 1 inh inhalation DAILY 01/03/23 01/30/23 History 62.5 mcg-vilant 25 mcg inhalat.powder (Trelegy Ellipta) pravastatin 40 mg tablet 40 mg PO HS 01/30/23 01/30/23 History Past Med/Surg History Medical History Alcohol use CAD (coronary artery disease) NSTEMI 2008 - moderate nonobstructive disease, no stenting Carotid stenosis Chronic diastolic (congestive) heart failure Chronic respiratory failure with hypoxia Constipation COPD, group D, by GOLD 2017 classification Diabetes mellitus, type II HLD (hyperlipidemia) HTN (hypertension) Hypothyroid Metastatic lung cancer (metastasis from lung to other site) (12/11/22) Obesity (BMI 30.0-34.9) BHAVIK on CPAP Primary cancer of right lower lobe of lung (01/31/22) s/p radiation Pulmonary hypertension Surgical History S/P cholecystectomy Family History Mother , age 69 Heart disease Rheumatoid arthritis Osteoarthritis Father , age 69 Myocardial infarction Asthma COPD (chronic obstructive pulmonary disease) Sister , age 29 Lung disease Other Diabetes Social History Smoking Status: Former smoker Tobacco Type: Cigarettes Age Started Using Tobacco: 18; Age Quit Using Tobacco: 60; packs per day: 2; Second Hand Exposure: No; Do You Dip or Chew Tobacco: No; Hx Alcohol Use: Yes Alcohol type: beer Alcohol type Comment: 3-5 coors light daily Alcohol Intake Frequency: 4 or More x per/Week Hx Substance Use: No Preferred Language: Senegalese Communication Ability: Effective Commercial Drafter Required: No Beliefs That Will Affect Care: None marital status: / Current Living Situation: Alone current occupational status: retired and disabled 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[employer] How many Children do You have: 3 Feels Safe at Home: Yes caffeine: Yes (Diet pepsi - 4 cans/day) Assistive Devices: CPAP and Oxygen - Continuous Review of Systems Review of Systems: Neuro: (-) Falls, trauma, slurred speech HEENT: (-) POZO, dizziness, dysphagia, visual or auditory changes CV: (-) CP, palpitations, swelling Resp: (+) SOB GI: (-) appetite changes, N/V/D, bowel changes : (-) urinary changes Skin: (-) rashes Psych: (-) anxiety, depression Physical Exam Physical Exam: Neuro: AAOx4, PERRLA, no aphagia, memory changes, CNII-XII grossly intact HEENT: head normocephalic, moist mucus membranes CV: S1/S2, (-) M/G/R, (-) edema, cap refill < 3 seconds Resp: Lungs decreased bases with crackles on middle right lung. On HFNC GI: Abdomen S/NT/ND, Ax4 bowel sounds, (-) CVA tenderness Musculoskeletal: 5/5 B/L UE strength, 5/5 B/L LE strength. No gait disturbance; current bed rest Skin: (-) rashes , (-) erythema. Psych: euthymic mood Results & Data Results & Data Vital Signs (Past 12 Hours) Vital Signs Temp Pulse Pulse Resp BP BP Pulse Ox 01/30/23 09:38 71 18 129/85 88 L 01/30/23 08:42 01/30/23 08:42 90 01/30/23 08:17 71 01/30/23 08:05 36.4 C L 81 26 H 137/74 77 L O2 Del Method O2 Flow Rate 01/30/23 09:38 Oxymask 5 01/30/23 08:42 Oxymask 6 01/30/23 08:42 Nasal Cannula 5 01/30/23 08:17 01/30/23 08:05 Nasal Cannula 4 Laboratory Results Short CBC 01/30/23 Range/Units 08:39 WBC 14.73 H (4.8-10.8) K/ul Hgb 11.2 L (12.0-16.0) g/dl Hct 35.9 L (37.0-47.0) % Plt Count 292 (130-400) K/uL BMP 01/30/23 08:39 Sodium 138 Potassium 4.0 Chloride 97 L Carbon Dioxide 30 BUN 11 Creatinine 0.52 L Glucose 155 H Calcium 9.2 Liver Function 01/30/23 Range/Units 08:39 Total Bilirubin 0.3 (0.2-1.0) mg/dl AST 12 L (13-39) U/L ALT 16 (7-52) U/L Alkaline Phosphatase 100 (34-104) U/L Albumin 4.0 (3.4-5.0) gm/dl Urine 01/30/23 Range/Units 09:21 Urine Color Yellow Urine Appearance Clear (Clear) Urine pH 5.5 (4.5-7.5) Ur Specific [place] 1.006 (1.000-1.030) Urine Protein Negative (Negative) Urine Glucose (UA) Negative (Negative) Diagnostic Findings Chest X-Ray 01/30/23 08:22 XR chest 1V portable CLINICAL HISTORY: Dyspnea. Lung cancer. COMPARISON STUDY: Chest CT January 18, 2023. Chest radiograph January 21, 2023. FINDINGS: There is no pneumothorax. A small to moderate right pleural effusion has mildly increased since prior chest radiograph. There is associated right middle lower lung airspace opacity. Interstitial thickening has progressed. Car diomegaly is unchanged. IMPRESSION: 1. Srzwt-rv-[id number] right pleural effusion, increased since prior chest radiograph. 2. Cardiomegaly with interstitial thickening suggestive of pulmonary edema. ACT 112: Negative or not required by law. Electronically signed by: Nehemias Holt M.D. 01/30/2023 9:22 AM Code Status & VTE Plan Code Status Full Code in the event of cardiac or respiratory arrest VTE Prophylaxis Plan VTE Prophylaxis will be ordered: Yes Supervising Physician Co-Signing Physician Notes Patient seen and examined independently. Agree with above provider. Patient presents to the hospital with increasing shortness of breath since yesterday. She was recently discharged 1 week ago after she underwent thoracentesis for management of pleural effusion On examination, she has bilateral crackles up to mid lung bases. Labs and chest x-ray independently reviewed. Chest x-ray suggestive of pulm edema. Start diuretics with Lasix 40 mg IV twice daily. DuoNebs every 6; azithromycin 5 00mg daily for 3 days. Pulmonology consulted; patient to be transferred to ICU due to increasing oxygen requirement. Also, pulmonology discussed regarding possible Pleurx catheter placement. (8) CHF (congestive heart failure) Heart failure chronicity: acute on chronic Heart failure type: unspecified Qualified Code(s): I50.9 - Heart failure, unspecified
[2023-01-30] MEDS: AZITHROMYCIN 500 MG in DEXTROSE 5% 250 ML IV SCH (11:31)
[2023-01-30] MEDS ORDERED: ALBUTEROL 0.083% NEBU SOLN 3 ML VIAL ONE (11:52)
[2023-01-30] MEDS: FLUTICASONE/VILANTEROL 200/25MCG 14 PUFFS/INHALER INH SCH (12:01)
--- NOTE | 2023-01-30 12:18 | Critical Care Consultation ---
Date of Consultation January 30, 2023 Assessment & Plan (1) Acute and chronic respiratory failure with hypoxia: Her degree of hypoxemia seems to be somewhat out of proportion to her chest x- ray findings. We will order a CT chest with contrast to evaluate for pulmonary embolism. Her echo from October did reveal pulmonary hypertension likely secondary to COPD. She received a dose of 40 mg IV Lasix in the ER. We will follow clinical response and consider further diuresis. Continue high flow to maintain oxygen saturation above 89%. (2) Dyspnea and respiratory abnormalities: Secondary to acute hypoxia and possibly pleural effusion. (3) Pleural effusion, right: We will perform an ultrasound and consider thoracentesis depending on size of effusion. (4) Metastatic lung cancer (metastasis from lung to other site): She has not yet started Keytruda. Recommend palliative care consult while inpatient. (5) COPD, group D, by GOLD 2017 classification: Continue ICS/LABA/LAMA inhalers. I do not see clear evidence of a COPD exacerbation. She did receive 125 mg of IV methylprednisolone in the ER. She is currently not bronchospastic. We will hold on further steroids. (6) Pulmonary hypertension: Likely secondary to chronic lung disease. I do not think that she would tolerate a right heart catheterization at this time. May need to consider a trial of a vasodilator such as sildenafil. We will try to maintain euvolemia with diuresis. Plan CRITICAL CARE TIME - I have personally spent 36 minutes of critical care time in the direct management of this patient. This is a life/limb threatening event. This includes time spent evaluating patient, direct bedside care, chart review, placing orders, interpretation of diagnostic studies, discussion with consultants, patient, and family members, as well as other required patient management activities. This time is exclusive of all separately billable procedures, and teaching time and separate from and in addition to any other critical care service time. History of Present Illness Reason for Consultation: Acute hypoxic respiratory failure History of Present Illness 67-year-old female with a history of metastatic lung cancer to the liver and bones presenting to the hospital due to increasing shortness of breath over the past 24 to 48 hours. SPO2 was found to be in the 60s in the ER. Denies chest pain. Denies any fevers or chills. She had an ultrasound thoracentesis performed by the radiology PA on the with removal of 550 mL of fluid. Pleural fluid studies indicated an exudate. No cytology was sent. Cultures have been negative to date. She is currently mildly tachypneic and requiring high flow oxygen. Chest x-ray revealed pulmonary edema and right-sided effusion. ABG today reveals compensated chronic hypercapnia. INR is unremarkable. Platelet count normal at 292,000. Patient notes that she has been on oxygen for over a year. She was first diagnosed with lung cancer about a year ago and recently discovered metastases in October. Her shortness of breath is improved with supplemental oxygen. She is currently on high flow. Allergies Allergy/AdvReac Type Severity Reaction Status Date / Time tetracycline AdvReac Mild HEADACHE Verified 01/18/23 20:12 Home Medications Medication Instructions Recorded Confirmed Type aspirin 81 mg tablet,delayed 81 mg PO QAM 01/13/19 01/30/23 History release furosemide 40 mg tablet (Lasix) 40 mg PO QAM #30 tabs 01/16/19 01/30/23 Rx Black Elderberry 1 tab PO QAM 03/18/21 01/30/23 History amlodipine 2.5 mg tablet 2.5 mg PO DAILY 03/18/21 01/30/23 History ezetimibe 10 mg tablet 10 mg PO DAILY 03/18/21 01/30/23 History metformin 500 mg tablet 500 mg PO BIDM 03/18/21 01/30/23 History albuterol sulfate 90 mcg/actuation 2 puff inhalation Q4 PRN Wheezing 03/19/22 01/30/23 History aerosol inhaler (Ventolin HFA) levothyroxine 150 mcg tablet 150 mcg PO QAM 10/24/22 01/30/23 History turmeric 400 mg capsule 400 mg PO DAILY 10/24/22 01/30/23 History potassium chloride 10 mEq 10 meq PO DAILY #30 tabs 10/30/22 01/30/23 Rx tablet,extended release metoprolol succinate 25 mg 12.5 mg PO BID 12/02/22 01/30/23 History tablet,extended release 24 hr fluticasone fur. 100 mcg-umeclid 1 inh inhalation DAILY 01/03/23 01/30/23 History 62.5 mcg-vilant 25 mcg inhalat.powder (Trelegy Ellipta) pravastatin 40 mg tablet 40 mg PO HS 01/30/23 01/30/23 History Patient History Medical History (Updated 01/30/23 @ 13:00 by Jonathan So MD) Alcohol use CAD (coronary artery disease) NSTEMI 2009 - moderate nonobstructive disease, no stenting Carotid stenosis Chronic diastolic (congestive) heart failure Chronic respiratory failure with hypoxia Constipation COPD, group D, by GOLD 2017 classification Diabetes mellitus, type II HLD (hyperlipidemia) HTN (hypertension) Hypothyroid Metastatic lung cancer (metastasis from lung to other site) (12/11/22) Obesity (BMI 30.0-34.9) BHAVIK on CPAP Primary cancer of right lower lobe of lung (01/31/22) s/p radiation Pulmonary hypertension Surgical History S/P cholecystectomy Family History Mother , age 69 Heart disease Rheumatoid arthritis Osteoarthritis Father , age 69 Myocardial infarction Asthma COPD (chronic obstructive pulmonary disease) Sister , age 29 Lung disease Other Diabetes Social History Smoking Status: Former smoker Tobacco Type: Cigarettes Age Started Using Tobacco: 18; Age Quit Using Tobacco: 60; packs per day: 2; Second Hand Exposure: No; Do You Dip or Chew Tobacco: No; Hx Alcohol Use: Yes Alcohol type: beer Alcohol type Comment: 3-5 coors light daily Alcohol Intake Frequency: 4 or More x per/Week Hx Substance Use: No Preferred Language: Wallisian Communication Ability: Effective Operational Risk Manager Required: No Beliefs That Will Affect Care: None marital status: / Current Living Situation: Alone current occupational status: retired and disabled 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 GENERAL - 67-year-old female appearing her stated age who is in no acute distress. Communicates well with provider and answers questions appropriately. MOUTH/OROPHARYNX - Without perioral cyanosis. Buccal mucosa pink and moist. LUNGS - Auscultation reveals diminished breath sounds at the bases, RIGHT > left. CARDIAC - RRR with S1/S2. No murmur, rubs, or gallops appreciated. ABDOMEN - Abdominal inspection demonstrates an obese abdomen. BS normoactive all four quadrants. No tenderness, palpable masses, or ascites noted. PSYCH - A&Ox3 and cooperates fully with examiner. Pt is very pleasant and interacts well with examiner. Skin: no rashes, warm and dry Lymphatic: no cervical or axillary lymphadenopathy Results & Data Results & Data Vital Signs (Past 12 Hours) Vital Signs Temp Pulse Pulse Resp BP BP Pulse Ox 01/30/23 11:57 79 22 144/71 H 94 01/30/23 12:02 82 16 92 01/30/23 11:00 72 28 H 122/64 88 L 01/30/23 10:49 78 18 140/56 L 89 L 01/30/23 09:38 71 18 129/85 88 L 01/30/23 08:42 01/30/23 08:42 90 01/30/23 08:17 71 01/30/23 08:05 36.4 C L 81 26 H 137/74 77 L O2 Del Method O2 Flow Rate FiO2 01/30/23 11:57 High Flow Nasal Cannula 01/30/23 12:02 High Flow Nasal Cannula 40 75 01/30/23 11:00 Oxymask 10 01/30/23 10:49 Oxymask 6 01/30/23 09:38 Oxymask 5 01/30/23 08:42 Oxymask 6 01/30/23 08:42 Nasal Cannula 5 01/30/23 08:17 01/30/23 08:05 Nasal Cannula 4 Coding Level of Care Code 62813 CRITICAL CARE 1ST 30-74M Diagnoses Acute and chronic respiratory failure with hypoxia J96.21 Dyspnea and respiratory abnormalities R06.00; R06.89 Pleural effusion, right J90 Metastatic lung cancer (metastasis from lung to other site) C34.90 COPD, group D, by GOLD 2017 classification J44.9 Pulmonary hypertension I27.20 Time Spent (min) 36
[2023-01-30] MEDS ORDERED: BUDESONIDE/FORMOTEROL FUMARATE 160/4.5 60 PUFFS/INHALER INH SCH (13:00)
[2023-01-30] MEDS ORDERED: ALBUTEROL 0.083% NEBU SOLN 3 ML VIAL NEB SCH (13:00)
[2023-01-30] MEDS ORDERED: OPTIRAY 320 500ml IV ONE (13:45)
[2023-01-30] MEDS ORDERED: GLUCAGON FOR INJ 1 MG VIAL SQ PRN (13:50)
[2023-01-30] MEDS ORDERED: GLUCOSE 10 TAB/TUBE PO PRN (13:50)
[2023-01-30] MEDS ORDERED: DEXTROSE 50% 50 ML SYRINGE IV PRN (13:50)
[2023-01-30] MEDS ORDERED: CARBOHYDRATES FOR HYPOGLYCEMIA PO PRN (13:50)
[2023-01-30] MEDS ORDERED: GLUCOSE 40% GEL 15 GM TUBE PO PRN (13:50)
--- NOTE | 2023-01-30 14:18 | CT Scan Report ---
CT ANGIOGRAPHY OF THE CHEST, PULMONARY EMBOLUS PROTOCOL CLINICAL HISTORY: Dyspnea. Lung cancer. COMPARISON STUDY: Chest CT January 18, 2023 and chest radiograph performed earlier today. PET/CT November. TECHNIQUE: Following IV administration of 120 mL of Optiray, helical axial images of the chest were o btained utilizing the pulmonary embolus protocol. Maximal intensity projections and sagittal and cor onal reformats were viewed on an independent 3D workstation. IV contrast was administered without co mplication. Automated exposure control was utilized for the study. A dose lowering technique was ut ilized adhering to the principles of ALARA. CT DOSE: 867.49 mGy.cm FINDINGS: No pulmonary emboli are identified. Cardiomegaly is noted. There is no pericardial effusio n. Mildly enlarged mediastinal and bilateral hilar lymph nodes are similar to prior CT. Mildly enlarg ed gastrohepatic ligament lymph nodes are also similar to CT of January 18, 2023. Index node measures 1.6 x 1.3 cm. There is no pneumothorax. A small to moderate right pleural effusion is similar to prior CT . Extensive right middle lobe and lower lobe airspace opacity is also similar to prior exam. Areas of decreased enhancement are again noted. No rim-enhancing fluid collection is present. The known right lower lobe lesion is obscured on this exam. Interlobular septal thickening is present. A 7 mm lingul ar nodule is unchanged from earlier exams. This is likely benign. Scattered small sclerotic metastase s and numerous hepatic metastases are again visualized. The appearance of the chest has not significa ntly changed since prior chest CT. IMPRESSION: 1. No pulmonary emboli identified. 2. Small to moderate right pleural effusion, similar to prior CT. Extensive right middle lobe and rig ht lower lobe consolidation which is also similar to prior exam. This could reflect pneumonia or radi ation pneumonitis. 3. Cardiomegaly with mild interstitial pulmonary edema. 4. Redemonstration of jacquelyn, skeletal and hepatic metastases. ACT 112: Negative or not required by law. Electronically signed by: Nehemias Holt M.D. 01/30/2023 2:16 PM
--- NOTE | 2023-01-30 15:30 | Electrocardiogram Report ---
Test Reason : Blood Pressure : / mmHG Vent. Rate : 067 BPM Atrial Rate : 067 BPM P-R Int : 128 ms QRS Dur : 088 ms QT Int : 404 ms P-R-T Axes : 041 048 035 degrees QTc Int : 426 ms Normal sinus rhythm T wave abnormality, consider anterior ischemia Abnormal ECG When compared with ECG of 18-JAN-2023 19:53, No significant change was found Confirmed by Tushar Munoz ([id number]) on 01/30/2023 3:29:51 PM Referred By: REFERRED SELF Confirmed By:Vinicio Munoz
--- NOTE | 2023-01-30 15:43 | Procedure Note ---
Procedure Note Date of Service January 30, 2023 Note PIGTAIL CATHETER PLACEMENT NOTE: Procedure: Pigtail Catheter Chest Tube Placement Indication: Recurrent effusion and pneumonia Anesthesia: 8 mL lidocaine 1% Written consent was obtained and placed on the chart. Timeout was done prior to the procedure. Prior to procedure, chest x-ray films were reviewed by myself and demonstrated a moderate size right pleural effusion. A time-out was completed verifying correct patient, procedure, site, positioning, and implant(s) or special equipment if applicable. Utilizing bedside ultrasound, chest wall was evaluated for location for optimal chest tube placement. Location between the fifth and sixth ribs were marked on the skin using gentle pressure. The right sided chest wall was prepped with chlorhexidine and draped in the typical sterile fashion. 8 mL of 1% Lidocaine without epinephrine was used to anesthetize the skin down to the dorsal surface of the fifth rib. Cirilo-colored fluid return confirmed entry into the pleural space. Lidocaine was injected into the pleural space for increased anesthetization. Introducer needle on syringe was inserted in perpendicular fashion taking care to ride just above the dorsal surface of the fifth rib. Entry into the pleural space was heralded by cirilo-colored fluid return into the syringe while under gentle aspiration. Guide wire was advanced into the pleural space without resistance and the introducer needle was subsequently removed. Scalpel was used to make small incision of the superficial tissue, parallel to the direction of the rib anatomy. Dilator was advanced uneventfully over the guide wire into the pleural space. 14 [place] Pigtail Catheter was inserted into the pleural space. Inner introducer and guide wire were removed. Drain was immediately connected to pre-prepared NEHEMIAS pleur-evac system. Pigtail was sutured securely in place and sterile dressing was applied. Chest tube was placed to -20 cmH2O suction. Patient tolerated procedure well. Blood Loss: Minimal Complications: None Post procedure Chest X-ray was ordered. Coding CPT Codes Pulmonary/Thoracic - Pulmonary and Thoracic: 13485 Tube thoracostomy ([id number]) [facility] [place] Procedure Codes (Charges) Pulmonary/Thoracic Procedure 1: Pulmonary and Thoracic: 54473 Tube thoracostomy
--- NOTE | 2023-01-30 16:30 | XRay Report ---
XR chest 1V portable CLINICAL HISTORY: S/P Thoracentesis COMPARISON STUDY: Chest radiograph and chest CT performed earlier today. FINDINGS: Interval placement of a right pleural catheter is noted. There is a probable tiny right bas ilar pneumothorax. The right pleural effusion has decreased in size since prior exam. Right lower [place] g airspace opacity is again noted. There is cardiomegaly with persistent interstitial thickening. IMPRESSION: 1. Interval placement of a right basilar pleural catheter. Suspected tiny right basilar pneumothorax. 2. Significant decrease in size of the right pleural effusion. Persistent right lower lung airspace o pacity. 3. Cardiomegaly with interstitial thickening suggestive of pulmonary edema, unchanged. ACT 112: Negative or not required by law. Electronically signed by: Nehemias Holt M.D. 01/30/2023 4:28 PM
[2023-01-30] MEDS: INSULIN ASPART PER UNIT CHARGE SC SCH ×2 (16:49→20:40)
[2023-01-30] MEDS: CEFEPIME 2,000 MG in SYRINGE 0 ML IV SCH ×2 (16:49→20:53)
[2023-01-30] MEDS: ACETAMINOPHEN 325 MG TAB PO PRN (17:32)
[2023-01-30] MEDS: ALBUTEROL 0.083% NEBU SOLN 3 ML VIAL NEB SCH (19:39)
[2023-01-30] MEDS: SODIUM CHLOR 7% 4 ML NEB NEB SCH (19:39)
[2023-01-30] MEDS: METOPROLOL SUCC 25MG EXT REL TAB PO SCH (20:50)
[2023-01-30] MEDS: PRAVASTATIN SOD 40 MG TAB PO SCH (20:51)
[2023-01-31 06:00] LABS: Hematocrit (blood only) 33.8 % (37.0-47.0); Hemoglobin 10.5 g/dl (12.0-16.0); Mean Corpuscular Hemoglobin 29.1 pg (25.0-34.0); Mean Corpuscular Hgb Conc 31.1 g/dL (32.0-36.0); Mean Corpuscular Volume 93.6 fL (80.0-100.0); Platelet Count 273 K/uL (130-400); RDW Coefficient of Variation 14.9 % (11.5-14.5); RDW Standard Deviation 50.8 fL (36.4-46.3); Red Blood Count 3.61 M/uL (4.20-5.40); White Blood Count 16.16 K/ul (4.8-10.8)
[2023-01-31] MEDS: LEVOTHYROXINE SODIUM 150 MCG TABLET PO SCH (06:06)
[2023-01-31 06:12] LABS: Albumin Globulin Ratio 1.2 (0.9-2); Albumin Level 3.8 gm/dl (3.4-5.0); BUN Creatinine Ratio 35.8 (10-20); Bilirubin,Total 0.2 mg/dl (0.2-1.0); Creatinine Clr Calc Pharmacy 111.8 ml/min; Est GFR (African American) 115.5 ml/min; Est GFR (Non-African American) 99.6 ml/min; Globulin 3.1 gm/dl (2.5-4.0); Magnesium 1.7 mg/dl (1.7-2.4); Phosphorus 4.2 mg/dl (2.5-4.9); Potassium 4.1 mmol/L (3.5-5.1); Total Protein 6.9 gm/dl (6.0-8.3)
[2023-01-31] MEDS: ALBUTEROL 0.083% NEBU SOLN 3 ML VIAL NEB SCH ×4 (07:30→19:30)
[2023-01-31] MEDS: SODIUM CHLOR 7% 4 ML NEB NEB SCH ×2 (07:30→19:30)
[2023-01-31] MEDS: INSULIN ASPART PER UNIT CHARGE SC SCH ×4 (07:43→20:42)
[2023-01-31 07:45] LABS: Estimated Average Glucose 148 mg/dl; Hemoglobin A1C 6.8 % (4.5-5.6)
[2023-01-31] MEDS: CEFEPIME 2,000 MG in SYRINGE 0 ML IV SCH ×3 (07:45→22:46)
[2023-01-31] MEDS: amLODIPine BESYLATE 5 MG TAB PO SCH (07:48)
[2023-01-31] MEDS: ASPIRIN 81 MG ECTAB PO SCH (07:49)
[2023-01-31] MEDS: FLUTICASONE/VILANTEROL 200/25MCG 14 PUFFS/INHALER INH SCH (07:50)
[2023-01-31] MEDS: METOPROLOL SUCC 25MG EXT REL TAB PO SCH ×2 (07:50→20:32)
[2023-01-31] MEDS: POTASSIUM CHLORIDE 10 MEQ TABCR PO SCH (07:54)
--- NOTE | 2023-01-31 08:29 | XRay Report ---
XR chest 1V portable HISTORY: Respiratory failure. Right-sided chest tube. COMPARISON: Chest 01/30/2023. FINDINGS: A right basilar chest tube remains unchanged in position. A tiny right basilar pneumothorax has likely improved/resolved. Small right pleural effusion and right basilar densities have also imp roved. Trace left pleural effusion and left basilar densities persist. The heart remains enlarged. No left-sided pneumothorax. IMPRESSION: 1. Right basilar chest tube remains unchanged in position. The tiny right basilar pneumothorax has im proved/resolved. 2. Right basilar airspace opacities/effusion have improved. 3. Cardiomegaly again noted. ACT 112: Negative or not required by law. Electronically signed by: Josse Mcelroy M.D. 01/31/2023 8:27 AM
[2023-01-31] MEDS ORDERED: FUROSEMIDE 40 MG/4 ML VIAL IV SCH (09:00)
[2023-01-31 09:20] LABS: Base Excess VBG 9.7 mEq/L; HCO3 VBG 36 mmol/L; Oxygen Saturation VBG 89.5 %; PCO2 VBG 56 mmHg (38-50); PO2 VBG 60 mmHg; pH VBG 7.42 (7.36-7.41)
--- NOTE | 2023-01-31 09:35 | Critical Care Progress Note ---
Date of Service January 31, 2023 Assessment & Plan (1) Acute and chronic respiratory failure with hypoxia: Plan: Chest CTA without evidence of pulmonary embolism. There is a dense right lower lobe consolidation/atelectasis. There is also a moderate-sized right pleural effusion likely contributing to her hypoxemia as well. She is slowly improving status post drainage of the pleural fluid. Continue percussive therapy to the right middle lobe and hypertonic saline twice daily to help open up the right middle lobe. She is not a candidate for bronchoscopy at this time given her tenuous respiratory status. (2) Dyspnea and respiratory abnormalities: Plan: Secondary to all the above. (3) Pleural effusion, right: Plan: Right pigtail catheter in place drained approximately 900 mL of pleural fluid. Cytology sent. Fluid does not appear infected based on pleural pH, LDH and glucose. Fluid does represent an exudate. (4) Metastatic lung cancer (metastasis from lung to other site): Plan: She has not yet started Keytruda. Recommend palliative care consult while inpatient. Patient with poor insight into her disease process. Prognosis is poor overall. (5) COPD, group D, by GOLD 2017 classification: Plan: Continue ICS/LABA/LAMA inhalers. I do not see clear evidence of a COPD exacerbation. She did receive 125 mg of IV methylprednisolone in the ER. She is currently not bronchospastic. We will hold on further steroids. (6) Pulmonary hypertension: Plan: Likely secondary to chronic lung disease. I do not think that she would tolerate a right heart catheterization at this time. May need to consider a trial of a vasodilator such as sildenafil. We will try to maintain euvolemia with diuresis. VBG ordered today given contraction alkalosis. May give a dose of acetazolamide depending on findings. (7) Alkalosis, metabolic: Plan: Considering acetazolamide depending on pH on VBG. (8) Right lower lobe pneumonia: Plan: Continue cefepime for total of 7 days and azithromycin for 5 days. Plan Start heparin 5000 units twice daily for DVT prophylaxis. Continue heart healthy diet. Continue aspirin, statin, antihypertensive medications, levothyroxine and sliding scale insulin. CRITICAL CARE TIME - I have personally spent 34 minutes of critical care time in the direct management of this patient. This is a life/limb threatening event. This includes time spent evaluating patient, direct bedside care, chart review, placing orders, interpretation of diagnostic studies, discussion with consultants, patient, and family members, as well as other required patient management activities. This time is exclusive of all separately billable procedures, and teaching time and separate from and in addition to any other critical care service time. Admission and Anticipated Discharge Date Admission Date: January 30, 2023 Subjective Patient seen and examined. She is complaining of some soreness around the chest tube site. She denies any worsening shortness of breath. She notes that she can actually breathe a lot easier, but can only take shallow breaths due to pleurisy from the chest tube. She denies any fevers, chills or night sweats. She remains on high flow at a flow rate of 25 L/min and 55% FiO2. Review of Systems Review of Systems: All systems reviewed & are unremarkable except as noted in HPI & below Physical Exam Physical Exam: VITAL SIGNS - Vital signs and nursing notes were reviewed. GENERAL - 67-year-old female appearing her stated age who is in no acute distress. Communicates well with provider and answers questions appropriately. MOUTH/OROPHARYNX - Without perioral cyanosis. Buccal mucosa pink and moist. LUNGS - Auscultation reveals diminished breath sounds at the bases, RIGHT > left. Right chest tube in place. CARDIAC - RRR with S1/S2. No murmur, rubs, or gallops appreciated. ABDOMEN - Abdominal inspection demonstrates an obese abdomen. BS normoactive all four quadrants. No tenderness, palpable masses, or ascites noted. PSYCH - A&Ox3 and cooperates fully with examiner. Pt is very pleasant and int eracts well with examiner. Skin: no rashes, warm and dry Lymphatic: no cervical or axillary lymphadenopathy Results & Data Results & Data Vital Signs (Past 12 Hours) Vital Signs Temp Pulse Pulse Resp BP Pulse Ox O2 Del Method 01/31/23 09:00 66 17 91 High Flow Nasal Cannula 01/31/23 09:00 108/62 01/31/23 08:30 76 17 92 High Flow Nasal Cannula 01/31/23 08:00 70 15 94 High Flow Nasal Cannula 01/31/23 08:00 125/63 01/31/23 07:30 71 98 High Flow Nasal Cannula 01/31/23 07:00 69 17 94 High Flow Nasal Cannula 01/31/23 07:00 122/62 01/31/23 07:33 62 20 94 High Flow Nasal Cannula 01/31/23 07:31 62 20 94 High Flow Nasal Cannula 01/31/23 06:00 79 14 90 01/31/23 06:00 126/63 01/31/23 05:30 63 14 92 01/31/23 05:00 61 15 92 01/31/23 05:00 105/63 01/31/23 04:59 36.5 C 01/31/23 00:00 36.7 C 01/31/23 04:30 58 L 15 93 01/31/23 04:00 61 14 92 01/31/23 04:00 109/62 01/31/23 03:30 59 L 15 92 01/31/23 03:00 61 16 90 01/31/23 03:00 106/58 L 01/31/23 02:30 62 24 91 01/31/23 02:00 65 14 95 01/31/23 02:00 108/57 L 01/31/23 01:30 65 15 92 01/31/23 01:00 71 20 94 01/31/23 01:00 112/72 01/31/23 00:30 68 18 93 01/31/23 00:00 67 17 91 01/31/23 00:00 102/59 L 01/30/23 23:30 70 16 92 01/30/23 23:00 73 18 89 L 01/30/23 23:00 109/62 01/30/23 22:30 72 18 89 L 01/30/23 22:00 80 17 90 01/30/23 22:00 142/73 H 01/30/23 21:30 83 18 88 L 01/31/23 02:50 73 13 95 01/30/23 23:02 01/30/23 22:08 75 20 94 01/30/23 21:34 High Flow Nasal Cannula O2 Flow Rate FiO2 01/31/23 09:00 25 55 01/31/23 09:00 01/31/23 08:30 25 55 01/31/23 08:00 25 55 01/31/23 08:00 01/31/23 07:30 25 55 01/31/23 07:00 25 55 01/31/23 07:00 01/31/23 07:33 25 60 01/31/23 07:31 25 60 01/31/23 06:00 01/31/23 06:00 01/31/23 05:30 01/31/23 05:00 01/31/23 05:00 01/31/23 04:59 01/31/23 00:00 01/31/23 04:30 01/31/23 04:00 01/31/23 04:00 01/31/23 03:30 01/31/23 03:00 01/31/23 03:00 01/31/23 02:30 01/31/23 02:00 01/31/23 02:00 01/31/23 01:30 01/31/23 01:00 01/31/23 01:00 01/31/23 00:30 01/31/23 00:00 01/31/23 00:00 01/30/23 23:30 01/30/23 23:00 01/30/23 23:00 01/30/23 22:30 01/30/23 22:00 01/30/23 22:00 01/30/23 21:30 01/31/23 02:50 40 01/30/23 23:02 45 01/30/23 22:08 40 01/30/23 21:34 25 60 Coding Level of Care Code 04774 CRITICAL CARE 1ST 30-74M Diagnoses Acute and chronic respiratory failure with hypoxia J96.21 Dyspnea and respiratory abnormalities R06.00; R06.89 Pleural effusion, right J90 Metastatic lung cancer (metastasis from lung to other site) C34.90 COPD, group D, by GOLD 2017 classification J44.9 Pulmonary hypertension I27.20 Alkalosis, metabolic E87.3 Right lower lobe pneumonia J18.9 Time Spent (min) 34
[2023-01-31] MEDS ORDERED: acetaZOLAMIDE 500 MG in SYRINGE 0 ML IV STA (09:39)
[2023-01-31] MEDS: fentaNYL citrate PF 100 MCG/2 ML VIAL IV PRN (09:53)
[2023-01-31] MEDS: AZITHROMYCIN 500 MG in DEXTROSE 5% 250 ML IV SCH (09:54)
--- NOTE | 2023-01-31 13:38 | Hospitalist Progress Note ---
Date of Service January 31, 2023 Assessment & Plan (1) Metastatic lung cancer (metastasis from lung to other site): (2) Acute and chronic respiratory failure with hypoxia: (3) Pleural effusion, right: (4) COPD (chronic obstructive pulmonary disease): (5) BHAVIK on CPAP: (6) CAD (coronary artery disease): (7) Carotid stenosis: (8) CHF (congestive heart failure): (9) HTN (hypertension): (10) HLD (hyperlipidemia): (11) Diabetes mellitus, type II: (12) Hypothyroid: Plan 67-year-old female presents with shortness of breath. New diagnosis of metastatic adenocarcinoma of the lung with mets mets to bone and liver early January 2023. Symptoms appear to be exacerbated by acute on chronic CHF. Worsening right pleural effusion to be evaluated by pulmonary for thoracentesis or Pleurx cath placement. Diuresis with Lasix, BiPAP as needed antibiotics and nebulizers. CT chest 01/30 1. No pulmonary emboli identified. 2. Small to moderate right pleural effusion, similar to prior CT. Extensive right middle lobe and right lower lobe consolidation which is also similar to prior exam. This could reflect pneumonia or radiation pneumonitis. 3. Cardiomegaly with mild interstitial pulmonary edema. 4. Redemonstration of jacquelyn, skeletal and hepatic metastases. Ultrasound-guided chest tube placement 01/30 with removal of 100 cc of pleural fluid- cultures and pathology pending Repeat chest x-ray this morning 01/31 1. Right basilar chest tube remains unchanged in position. The tiny right basilar pneumothorax has improved/resolved. 2. Right basilar airspace opacities/effusion have improved. 3. Cardiomegaly again noted. Echo 10/2022 with EF 55 to 60%, grade 1 diastolic dysfunction, systolic pulm artery pressure 51 mmHg Acute on chronic respiratory failure with hypoxia: Suspect multifactorial in the setting of right-sided pneumonia with parapneumonic effusion, COPD, and metastatic adenocarcinoma. Saw Dr. Kirby on 01/22; Recommended Keytruda and Radiation to left arm. Plan to start treatment in 3 weeks or so; awaiting further liver biopsy results H/O discussed possible eval for pleur-x drain Leukocytosis noted, procal negative, imaging reviewed Seen by pulmonology evaluation and ICU stay with high flow oxygen - status post chest tube placement with removal of 900 cc of pleural fluid, exudative in nature- cultures and cytology pending -Continue cefepime/azithromycin pending culture and pathology results -Continue supplemental oxygen, wean off as tolerated -Continue Percussive therapy to right middle lobe and hyperlinks saline -Further chest tube management per pulmonology -Per pulmonology, she is not a candidate for bronchoscopy at this time given her tenuous respiratory status Right lower lobe pneumonia with pleural effusio: As above Metastatic lung cancer- as above. COPD group D- not in exacerbation. Continue ICS/LABA/LAMA inhaler. No indication for steroids currently. Pulmonary hypertension-likely secondary chronic lung disease. Per pulmonology, she is not a candidate for right heart cath at this time and they were considering trial of vasodilator such as sildenafil. Optimizing volume status through diuresis.. BHAVIK on CPAP: CAD: Carotid stenosis: NSTEMI 2008; takes baby aspirin continue Chest x-ray suggestive of pulmonary edema along with small to moderate pleural effusion (see above under CHF) Last echo 11/06 EF 55 to 60%, G1 DD X, mild TR, mild LVH, right ventricle normal size HTN: Continue amlodipine HLD: On [place]et[place], [place] Diabetes mellitus type 2: Hold metformin, continue SSI, diabetic diet Hypothyroidism: Continue Synthroid Goals of Care conversation;counseling: Lengthy conversation held with patient and her daughter at bedside. Patient is at the beginning of her oncology journey with her initial appointment occurring last week. Hematology oncology did present the possibility of having palliative medicine presents and that was readdressed today in order to develop rapport along with providing symptom management and goals of care throughout her chemotherapy and radiation journey. Patient expressed that at this time she is aware of that service but would like to hold off on official consultation at this time until she is able to begin treatment and see how it affects her daily life. To note patient does live alone at home however does have her daughter providing support. Disposition: Downgrade to PCU CODE STATUS: Full code VTE prophylaxis: Subcu heparin . Admission and Anticipated Discharge Date Admission Date: January 30, 2023 Subjective Patient was seen and examined at bedside. Still feels much better since admission. Breathing is improved. Has some pain at the chest tube site. No fever, chills, nausea or vomiting. Review of Systems Review of Systems: All systems reviewed & are unremarkable except as noted in Subjective Physical Exam Physical Exam: General: Lying comfortably in bed, not in distress, on NC HEENT: EOMI, NEGIN, MMM Chest: Fair breath sounds anteriorly, chest tube in place CVS: Regular, normal heart sounds, no murmur Abdomen: Soft, non tender, not distended, normal bowel sounds Neuro: Awake, alert, oriented, conversing well, non focal Extremities: No cyanosis, clubbing or edema Results & Data Results & Data Vital Signs (Past 12 Hours) Vital Signs Temp Pulse Pulse Resp BP Pulse Ox O2 Del Method 01/31/23 11:21 Nasal Cannula 01/31/23 10:55 70 20 93 High Flow Nasal Cannula 01/31/23 10:54 70 20 93 High Flow Nasal Cannula 01/31/23 10:30 66 17 91 High Flow Nasal Cannula 01/31/23 10:01 69 19 89 L High Flow Nasal Cannula 01/31/23 10:01 129/67 01/31/23 10:00 69 22 87 L High Flow Nasal Cannula 01/31/23 09:30 70 15 88 L High Flow Nasal Cannula 01/31/23 09:32 71 01/31/23 09:00 66 17 91 High Flow Nasal Cannula 01/31/23 09:00 108/62 01/31/23 08:30 76 17 92 High Flow Nasal Cannula 01/31/23 08:00 70 15 94 High Flow Nasal Cannula 01/31/23 08:00 125/63 01/31/23 07:30 71 98 High Flow Nasal Cannula 01/31/23 07:00 69 17 94 High Flow Nasal Cannula 01/31/23 07:00 122/62 01/31/23 08:00 High Flow Nasal Cannula 01/31/23 07:33 62 20 94 High Flow Nasal Cannula 01/31/23 07:31 62 20 94 High Flow Nasal Cannula 01/31/23 06:00 79 14 90 01/31/23 06:00 126/63 01/31/23 05:30 63 14 92 01/31/23 05:00 61 15 92 01/31/23 05:00 105/63 01/31/23 04:59 36.5 C 01/31/23 04:30 58 L 15 93 01/31/23 04:00 61 14 92 01/31/23 04:00 109/62 01/31/23 03:30 59 L 15 92 01/31/23 03:00 61 16 90 01/31/23 03:00 106/58 L 01/31/23 02:30 62 24 91 01/31/23 02:00 65 14 95 01/31/23 02:00 108/57 L 01/31/23 02:50 73 13 95 O2 Flow Rate FiO2 01/31/23 11:21 5 01/31/23 10:55 20 50 01/31/23 10:54 20 50 01/31/23 10:30 20 50 01/31/23 10:01 20 50 01/31/23 10:01 01/31/23 10:00 20 50 01/31/23 09:30 20 50 01/31/23 09:32 01/31/23 09:00 25 55 01/31/23 09:00 01/31/23 08:30 25 55 01/31/23 08:00 25 55 01/31/23 08:00 01/31/23 07:30 25 55 01/31/23 07:00 25 55 01/31/23 07:00 01/31/23 08:00 25 55 01/31/23 07:33 25 60 01/31/23 07:31 25 60 01/31/23 06:00 01/31/23 06:00 01/31/23 05:30 01/31/23 05:00 01/31/23 05:00 01/31/23 04:59 01/31/23 04:30 01/31/23 04:00 01/31/23 04:00 01/31/23 03:30 01/31/23 03:00 01/31/23 03:00 01/31/23 02:30 01/31/23 02:00 01/31/23 02:00 01/31/23 02:50 40 Laboratory Results Short CBC 01/31/23 Range/Units 05:38 WBC 16.16 H (4.8-10.8) K/ul Hgb 10.5 L (12.0-16.0) g/dl Hct 33.8 L (37.0-47.0) % Plt Count 273 (130-400) K/uL BMP 01/31/23 05:38 Sodium 139 Potassium 4.1 Chloride 97 L Carbon Dioxide 35 H BUN 19 Creatinine 0.53 L Glucose 146 H Calcium 9.0 Liver Function 01/31/23 Range/Units 05:38 Total Bilirubin 0.2 (0.2-1.0) mg/dl AST 9 L (13-39) U/L ALT 12 (7-52) U/L Alkaline Phosphatase 87 (34-104) U/L Albumin 3.8 (3.4-5.0) gm/dl Diagnostic Findings Chest X-Ray 01/31/23 07:00 XR chest 1V portable HISTORY: Respiratory failure. Right-sided chest tube. COMPARISON: Chest 01/30/2023. FINDINGS: A right basilar chest tube remains unchanged in position. A tiny right basilar pneumothorax has likely improved/resolved. Small right pleural effusion and right basilar densities have also improved. Trace left pleural effusion and left basilar densities persist. The heart remains enlarged. No left-sided pneumothorax. IMPRESSION: 1. Right basilar chest tube remains unchanged in position. The tiny right basilar pneumothorax has improved/resolved. 2. Right basilar airspace opacities/effusion have improved. 3. Cardiomegaly again noted. ACT 112: Negative or not required by law. Electronically signed by: Josse Mcelroy M.D. 01/31/2023 8:27 AM Medications Administered Current Inpatient Medications Acetaminophen (Acetaminophen 325 Mg Tab) 650 mg PO Q4H PRN PRN Reason: Pain or Fever Stop: 03/01/23 10:04 Last Admin: 01/30/23 17:32 Dose: 650 mg Al Hydrox/Mg Hydrox/Simethicone (Aluminum/Magnesium Susp 30 Ml Udc) 15 ml PO Q4H PRN PRN Reason: Dyspepsia Stop: 03/01/23 10:04 Albuterol (Albuterol 0.083% Nebu Soln 3 Ml Vial) 2.5 mg NEB QIDR NABEEL; Protocol Stop: 03/01/23 18:59 Last Admin: 01/31/23 10:52 Dose: 2.5 mg Amlodipine Besylate (Amlodipine Besylate 5 Mg Tab) 2.5 mg PO DAILY NABEEL Stop: 03/02/23 08:59 Last Admin: 01/31/23 07:48 Dose: 2.5 mg Aspirin (Aspirin 81 Mg Ectab) 81 mg PO QAM NABEEL Stop: 03/02/23 08:59 Last Admin: 01/31/23 07:49 Dose: 81 mg Dextrose (Dextrose 50% 50 Ml Syringe) 25 - 50 ml IV UD PRN; Protocol PRN Reason: Hypoglycemia Protocol Stop: 03/01/23 13:49 Fentanyl Citrate (Fentanyl Citrate Pf 100 Mcg/2 Ml Vial) 50 mcg IV Q3H PRN PRN Reason: Pain Stop: 02/13/23 19:46 Last Admin: 01/31/23 09:53 Dose: 50 mcg Fluticasone/Vilanterol (Fluticasone/Vilanterol 200/25mcg 14 Puffs/Inhaler) 1 puffs INH DAILY NABEEL Stop: 03/01/23 10:59 Last Admin: 01/31/23 07:50 Dose: 1 puffs Glucagon (Glucagon For Inj 1 Mg Vial) 1 mg SQ UD PRN; Protocol PRN Reason: Hypoglycemia Protocol Stop: 03/01/23 13:49 Glucose (Glucose 10 Tab/Tube) 4 - 8 tab PO UD PRN; Protocol PRN Reason: Hypoglycemia Treatment Stop: 03/01/23 13:49 Glucose (Glucose 40% Gel 15 Gm Tube) 15 - 30 gm PO UD PRN; Protocol PRN Reason: Hypoglycemia Protocol Stop: 03/01/23 13:49 Heparin Sodium (Porcine) (Heparin Sod 5,000 Unit/0.5 Ml Vial) 5,000 units SQ Q12 NABEEL Stop: 03/02/23 20:59 Azithromycin 500 mg/ Dextrose 255 mls @ 127.5 mls/hr IV Q24H [facility] Stop: 02/06/23 10:44 Last Infusion: 01/31/23 12:06 Dose: Infused Cefepime HCl 2,000 mg/ Syringe 20 mls @ 5 mls/min IV Q8H NABEEL; Protocol Stop: 02/06/23 15:59 Last Admin: 01/31/23 07:45 Dose: 5 mls/min Insulin Aspart (Insulin Aspart Per Unit Charge) 0 units SC ACHS NABEEL Stop: 03/01/23 16:29 Last Admin: 01/31/23 11:38 Dose: 5 units Levothyroxine Sodium (Levothyroxine Sodium 150 Mcg Tablet) 150 mcg PO DAILYBB NABEEL Stop: 03/02/23 06:29 Last Admin: 01/31/23 06:06 Dose: 150 mcg Magnesium Hydroxide (Magnesium Hydroxide Susp 30 Ml Udc) 30 ml PO Q12H PRN PRN Reason: Constipation Stop: 03/01/23 10:04 Metoprolol Succinate (Metoprolol Succ 25mg Ext Rel Tab) 12.5 mg PO BID NABEEL Stop: 03/01/23 20:59 Last Admin: 01/31/23 07:50 Dose: 12.5 mg Miscellaneous (Carbohydrates For Hypoglycemia ) 15 - 30 gm PO UD PRN PRN Reason: Hypoglycemia Protocol Stop: 03/01/23 13:49 Ondansetron HCl (Ondansetron Inj 2 Mg/Ml 2 Ml Vial) 4 mg IV Q6H PRN PRN Reason: Nausea Stop: 03/01/23 10:04 Polyethylene Glycol (Polyethylene (Miralax) 17 Gm Pack) 17 gm PO DAILY PRN PRN Reason: Constipation Stop: 03/01/23 10:04 Potassium Chloride (Potassium Chloride 10 Meq Tabcr) 10 meq PO DAILY NABEEL Stop: 03/02/23 08:59 Last Admin: 01/31/23 07:54 Dose: 10 meq Pravastatin Sodium (Pravastatin Sod 40 Mg Tab) 40 mg PO HS NABEEL Stop: 03/01/23 20:59 Last Admin: 01/30/23 20:51 Dose: 40 mg Sodium Chloride (Sodium Chlor 7% 4 Ml Neb) 4 ml NEB BIDR NABEEL Stop: 03/01/23 18:59 Last Admin: 01/31/23 07:30 Dose: 4 ml (8) CHF (congestive heart failure) Heart failure chronicity: acute on chronic Heart failure type: unspecified Qualified Code(s): I50.9 - Heart failure, unspecified
[2023-01-31] MEDS: ACETAMINOPHEN 325 MG TAB PO PRN ×2 (15:37→21:19)
[2023-01-31] MEDS: HEPARIN SOD 5,000 UNIT/0.5 ML VIAL SQ SCH (20:31)
[2023-01-31] MEDS: PRAVASTATIN SOD 40 MG TAB PO SCH (20:32)
[2023-02-01] MEDS: LEVOTHYROXINE SODIUM 150 MCG TABLET PO SCH (02:25)
[2023-02-01] MEDS: fentaNYL citrate PF 100 MCG/2 ML VIAL IV PRN (02:26)
[2023-02-01 05:41] LABS: Hematocrit (blood only) 35.7 % (37.0-47.0); Mean Corpuscular Hemoglobin 29.4 pg (25.0-34.0); Mean Corpuscular Hgb Conc 30.8 g/dL (32.0-36.0); Mean Corpuscular Volume 95.5 fL (80.0-100.0); Platelet Count 266 K/uL (130-400); RDW Coefficient of Variation 15.3 % (11.5-14.5); RDW Standard Deviation 52.9 fL (36.4-46.3); Red Blood Count 3.74 M/uL (4.20-5.40); White Blood Count 11.62 K/ul (4.8-10.8)
[2023-02-01 05:55] LABS: Albumin Globulin Ratio 1.2 (0.9-2); Albumin Level 3.7 gm/dl (3.4-5.0); BUN Creatinine Ratio 32.1 (10-20); Bilirubin,Total 0.2 mg/dl (0.2-1.0); Calcium 9.2 mg/dl (8.6-10.3); Creatinine Clr Calc Pharmacy 105.8 ml/min; Est GFR (African American) 113.4 ml/min; Est GFR (Non-African American) 97.8 ml/min; Globulin 3.1 gm/dl (2.5-4.0); Phosphorus 3.6 mg/dl (2.5-4.9); Potassium 4.1 mmol/L (3.5-5.1); Total Protein 6.8 gm/dl (6.0-8.3)
[2023-02-01] MEDS: ACETAMINOPHEN 325 MG TAB PO PRN ×2 (06:47→19:21)
[2023-02-01] MEDS: ALBUTEROL 0.083% NEBU SOLN 3 ML VIAL NEB SCH ×4 (07:29→19:52)
[2023-02-01] MEDS: SODIUM CHLOR 7% 4 ML NEB NEB SCH ×2 (07:29→19:52)
[2023-02-01] MEDS: FLUTICASONE/VILANTEROL 200/25MCG 14 PUFFS/INHALER INH SCH (08:27)
[2023-02-01] MEDS: amLODIPine BESYLATE 5 MG TAB PO SCH (08:27)
[2023-02-01] MEDS: HEPARIN SOD 5,000 UNIT/0.5 ML VIAL SQ SCH ×2 (08:27→19:22)
[2023-02-01] MEDS: METOPROLOL SUCC 25MG EXT REL TAB PO SCH ×2 (08:28→19:26)
[2023-02-01] MEDS: ASPIRIN 81 MG ECTAB PO SCH (08:28)
[2023-02-01] MEDS: INSULIN ASPART PER UNIT CHARGE SC SCH ×4 (08:29→20:18)
[2023-02-01] MEDS: POTASSIUM CHLORIDE 10 MEQ TABCR PO SCH (08:30)
[2023-02-01] MEDS: CEFEPIME 2,000 MG in SYRINGE 0 ML IV SCH ×3 (08:30→21:17)
--- NOTE | 2023-02-01 09:26 | XRay Report ---
XR chest 1V portable CLINICAL HISTORY: follow up ptx and chest tube TECHNIQUE: Single frontal radiograph of the chest was obtained. Comparison: None available at the time of this dictation. FINDINGS: Right chest tube is stable. Cardiomegaly is noted. The lungs are clear. No evidence of pleural effusi on or pneumothorax. IMPRESSION: The right basilar pneumothorax is no longer seen. Right chest tube is unchanged. ACT 112: Negative or not required by law. Electronically signed by: Marco A Dozier M.D. 02/01/2023 9:25 AM
--- NOTE | 2023-02-01 11:00 | Pulmonology Progress Note ---
Date of Service February 01, 2023 Assessment & Plan (1) Acute and chronic respiratory failure with hypoxia: Plan: Chest CTA without evidence of pulmonary embolism. There is a dense right lower lobe consolidation/atelectasis. There is also a moderate-sized right pleural effusion likely contributing to her hypoxemia as well. Hypoxemia dramatically improved status post drainage of pleural effusion. (2) Dyspnea and respiratory abnormalities: Plan: Secondary to pleural effusion, atelectasis, active malignancy and deconditioning (3) Pleural effusion, right: Plan: Right pigtail catheter in place drained approximately 1100 mL of pleural fluid. Cytology sent. Fluid does not appear infected based on pleural pH, LDH and glucose. If cytology comes back positive from the pleural fluid, recommend discontinuing pigtail catheter and considering placement of Pleurx catheter in the near future. (4) Metastatic lung cancer (metastasis from lung to other site): Plan: She has not yet started Keytruda. Recommend palliative care consult while inpatient. Patient with poor insight into her disease process. Prognosis is poor overall. (5) COPD, group D, by GOLD 2017 classification: Plan: Continue ICS/LABA/LAMA inhalers. I do not see clear evidence of a COPD exacerbation. She did receive 125 mg of IV methylprednisolone in the ER. She is currently not bronchospastic. We will hold on further steroids. Completing a course of azithromycin for 5 days in addition to cefepime. (6) Pulmonary hypertension: Plan: Likely secondary to chronic lung disease. I do not think that she would tolerate a right heart catheterization at this time. May need to consider a trial of a vasodilator such as sildenafil. We will try to maintain euvolemia with diuresis. Received 500 mg of IV acetazolamide 01/31/2023 with improvement in serum bicarbonate from 35-32. We will give an additional dose of 250 mg IV today. (7) Alkalosis, metabolic: Plan: IV acetazolamide as above. (8) Right lower lobe pneumonia: Plan: Continue cefepime for total of 7 days and azithromycin for 5 days. Plan Thank you for the consult. Pulm will continue to follow with you. Admission and Anticipated Discharge Date Admission Date: January 30, 2023 Subjective Patient sitting up in a chair. Shortness of breath significantly improved. Has occasional cough. No fevers, chills. Minimal pain around the chest tube insertion site. Currently on 7 L of oxygen via high flow cannula. Review of Systems Review of Systems: All systems reviewed & are unremarkable except as noted in HPI & below Physical Exam Physical Exam: VITAL SIGNS - Vital signs and nursing notes were reviewed. GENERAL - 67-year-old female appearing her stated age who is in no acute distress. Communicates well with provider and answers questions appropriately. MOUTH/OROPHARYNX - Without perioral cyanosis. Buccal mucosa pink and moist. LUNGS - Auscultation reveals diminished breath sounds at the bases, RIGHT > left. Right chest tube in place. CARDIAC - RRR with S1/S2. No murmur, rubs, or gallops appreciated. ABDOMEN - Abdominal inspection demonstrates an obese abdomen. BS normoactive all four quadrants. No tenderness, palpable masses, or ascites noted. PSYCH - A&Ox3 and cooperates fully with examiner. Pt is very pleasant and interacts well with examiner. Skin: no rashes, warm and dry Lymphatic: no cervical or axillary lymphadenopathy Results & Data Results & Data Vital Signs (Past 12 Hours) Vital Signs Temp Pulse Pulse Resp BP BP Pulse Ox 02/01/23 08:00 02/01/23 08:00 02/01/23 07:15 36.8 C 61 18 109/59 L 92 02/01/23 07:32 66 20 92 02/01/23 06:00 59 L 18 92 02/01/23 05:30 66 19 90 02/01/23 05:00 63 21 91 02/01/23 04:30 64 20 89 L 02/01/23 04:00 60 15 89 L 02/01/23 04:00 98/49 L 02/01/23 03:30 58 L 16 91 02/01/23 03:00 68 25 H 93 02/01/23 02:30 63 18 89 L 02/01/23 02:00 72 18 88 L 02/01/23 01:30 65 13 94 02/01/23 01:00 60 15 93 02/01/23 00:30 61 16 92 02/01/23 00:00 60 17 02/01/23 00:00 87/50 L 01/31/23 23:30 62 16 92 01/31/23 23:00 63 20 92 O2 Del Method O2 Del Method O2 Flow Rate O2 Flow Rate 02/01/23 08:00 High Flow Nasal Cannula 7 02/01/23 08:00 Room Air, High Flow Nasal Cannula 7 02/01/23 07:15 High Flow Nasal Cannula 7 02/01/23 07:32 Nasal Cannula 7 02/01/23 06:00 02/01/23 05:30 02/01/23 05:00 02/01/23 04:30 02/01/23 04:00 02/01/23 04:00 02/01/23 03:30 02/01/23 03:00 02/01/23 02:30 02/01/23 02:00 02/01/23 01:30 02/01/23 01:00 02/01/23 00:30 02/01/23 00:00 02/01/23 00:00 01/31/23 23:30 01/31/23 23:00 PG Care Time/CCT Total # of Minutes Spent Total Time Spent with Patient: Total time spent is greater than 50% in coordination of care (as documented) at patient's floor/unit and/or counseling patient: Coding Level of Care Code 55510 SUB INP/OBS CARE 3/50MIN Diagnoses Acute and chronic respiratory failure with hypoxia J96.21 Dyspnea and respiratory abnormalities R06.00; R06.89 Pleural effusion, right J90 Metastatic lung cancer (metastasis from lung to other site) C34.90 COPD, group D, by GOLD 2017 classification J44.9 Pulmonary hypertension I27.20 Alkalosis, metabolic E87.3 Right lower lobe pneumonia J18.9
[2023-02-01] MEDS ORDERED: acetaZOLAMIDE 250 MG in SYRINGE 0 ML IV STA (11:05)
[2023-02-01] MEDS: AZITHROMYCIN 500 MG in DEXTROSE 5% 250 ML IV SCH (11:28)
--- NOTE | 2023-02-01 13:31 | Hospitalist Progress Note ---
Date of Service February 01, 2023 Assessment & Plan (1) Acute and chronic respiratory failure with hypoxia: Plan: 67-year-old female presents with shortness of breath. New diagnosis of metastatic adenocarcinoma of the lung with mets mets to bone and liver early January 2023. Symptoms appear to be exacerbated by acute on chronic CHF. Worsening right pleural effusion to be evaluated by pulmonary for thoracentesis or Pleurx cath placement. Diuresis with Lasix, BiPAP as needed antibiotics and nebulizers. multifactorial in the setting of right-sided pneumonia with parapneumonic effusion, COPD, and metastatic adenocarcinoma. H/O discussed possible eval for pleur-x drain Leukocytosis noted, procal negative, imaging reviewed Seen by pulmonology evaluation and ICU stay with high flow oxygen -Continue supplemental oxygen, wean off as tolerated -Continue Percussive therapy to right middle lobe and hyperlinks saline -She feels clinically much better -Has been requiring 5 L of high flow nasal cannula oxygen to maintain saturation Right lower lobe pneumonia with pleural effusio: Status post right-sided chest tube placement - status post chest tube placement with removal of 900 cc of pleural fluid, exudative in nature- cultures and cytology pending -Continue cefepime/azithromycin pending culture and pathology results -Further chest tube management per pulmonology -Per pulmonology, she is not a candidate for bronchoscopy at this time given her tenuous respiratory status -We will continue cefepime for a total of 7 days and azithromycin for 5 days Imaging Studies as below: CT chest 01/30 1. No pulmonary emboli identified. 2. Small to moderate right pleural effusion, similar to prior CT. Extensive right middle lobe and right lower lobe consolidation which is also similar to prior exam. This could reflect pneumonia or radiation pneumonitis. 3. Cardiomegaly with mild interstitial pulmonary edema. 4. Redemonstration of jacquelyn, skeletal and hepatic metastases. Ultrasound-guided chest tube placement 01/30 with removal of 100 cc of pleural fluid- cultures and pathology pending Repeat chest x-ray this morning 01/31 1. Right basilar chest tube remains unchanged in position. The tiny right basilar pneumothorax has improved/resolved. 2. Right basilar airspace opacities/effusion have improved. 3. Cardiomegaly again noted. (2) Metastatic lung cancer (metastasis from lung to other site): Plan: Saw Dr. Kirby on 01/22; Recommended Keytruda and Radiation to left arm. Plan to start treatment in 3 weeks or so; awaiting further liver biopsy results (3) Pleural effusion, right: Plan: As above (4) COPD (chronic obstructive pulmonary disease): Plan: COPD group D- not in exacerbation. Continue ICS/LABA/LAMA inhaler. No indication for steroids currently. Pulmonary hypertension-likely secondary chronic lung disease. Per pulmonology, she is not a candidate for right heart cath at this time and they were considering trial of vasodilator such as sildenafil. Optimizing volume status through diuresis. Still requiring 5 L of oxygen through high flow nasal cannula to maintain saturations (5) BHAVIK on CPAP: (6) CAD (coronary artery disease): Plan: No acute cardiac symptoms (7) Carotid stenosis: (8) CHF (congestive heart failure): Plan: Echo 10/2022 with EF 55 to 60%, grade 1 diastolic dysfunction, systolic pulm artery pressure 51 mmHg No acute CHF (9) HTN (hypertension): (10) HLD (hyperlipidemia): (11) Diabetes mellitus, type II: Plan: Diabetes mellitus type 2: Hold metformin, continue SSI, diabetic diet (12) Hypothyroid: Plan: Continue with the replacement Other significant medical condition as follows: CAD: Carotid stenosis: NSTEMI 2008; takes baby aspirin continue Chest x-ray suggestive of pulmonary edema along with small to moderate pleural effusion (see above under CHF) HTN: Continue amlodipine HLD: On Zet[place], [place] Hypothyroidism: Continue Synthroid Goals of Care conversation;counseling: Lengthy conversation held with patient and her daughter at bedside. Patient is at the beginning of her oncology journey with her initial appointment occurring last week. Hematology oncology did present the possibility of having palliative medicine presents and that was readdressed today in order to develop rapport along with providing symptom management and goals of care throughout her chemotherapy and radiation journey. Patient expressed that at this time she is aware of that service but would like to hold off on official consultation at this time until she is able to begin treatment and see how it affects her daily life. To note patient does live alone at home however does have her daughter providing support. Plan CODE STATUS: Full code VTE prophylaxis: Subcu heparin . Admission and Anticipated Discharge Date Admission Date: January 30, 2023 Subjective 02/01/2023 The patient was seen and examined in ICU She is out of bed on a chair and has been feeling better Has minimal pain adjoining the chest tube site but does not have any shortness of breath at rest Has been requiring 5 L through high flow nasal cannula to maintain saturation Review of Systems Review of Systems: All systems reviewed and are unremarkable as noted below Physical Exam Physical Exam: Sitting on a chair without any acute distress Constitutional: well developed, well nourished, + ill appearing and + obese Eyes: PERRL, conjunctivae normal, anicteric sclerae ENMT: external ear and nose normal, oropharynx normal Neck: trachea midline, no thyromegaly Respiratory: + respiratory distress (Minimal shortness of breath at rest) Auscultation: + diminished lung sounds (Right lower lung linder) and + crackles (Right lower lung) Cardiovascular: Rate/Rhythm: regular rate and regular rhythm; not tachycardic Heart Sounds: normal S1 and normal S2; no murmur Extremities: + edema (Trace edema bilaterally) Gastrointestinal (Abdomen): Inspection/Auscultation: normal bowel sounds; abdomen not distended Percussion/Palpation: abdomen soft; abdomen nontender Musculoskeletal: No acute arthritis involving any joint Neurologic: Alert, awake and oriented x3. No focal sensory or no motor deficit appreciated Lymphatic: no cervical or axillary lymphadenopathy Results & Data Results & Data Vital Signs (Past 12 Hours) Vital Signs Temp Pulse Pulse Resp BP BP Pulse Ox 02/01/23 12:00 67 14 94 02/01/23 11:30 64 16 93 02/01/23 11:12 118/66 02/01/23 11:12 60 20 02/01/23 11:00 59 L 21 95 02/01/23 10:30 58 L 21 93 02/01/23 10:00 61 19 92 02/01/23 09:30 63 92 02/01/23 09:00 72 24 91 02/01/23 08:30 71 17 92 02/01/23 08:00 69 17 91 02/01/23 07:30 69 23 93 02/01/23 07:08 60 18 91 02/01/23 07:08 109/59 L 02/01/23 07:00 61 17 89 L 02/01/23 06:30 65 15 91 02/01/23 11:17 36.7 C 58 L 20 118/66 94 02/01/23 11:11 78 20 94 02/01/23 08:00 02/01/23 08:00 02/01/23 07:15 36.8 C 61 18 109/59 L 92 02/01/23 07:32 66 20 92 02/01/23 06:00 59 L 18 92 02/01/23 05:30 66 19 90 02/01/23 05:00 63 21 91 02/01/23 04:30 64 20 89 L 02/01/23 04:00 60 15 89 L 02/01/23 04:00 98/49 L 02/01/23 03:30 58 L 16 91 02/01/23 03:00 68 25 H 93 02/01/23 02:30 63 18 89 L 02/01/23 02:00 72 18 88 L 02/01/23 01:30 65 13 94 O2 Del Method O2 Del Method O2 Flow Rate O2 Flow Rate 02/01/23 12:00 02/01/23 11:30 02/01/23 11:12 02/01/23 11:12 02/01/23 11:00 02/01/23 10:30 02/01/23 10:00 02/01/23 09:30 02/01/23 09:00 02/01/23 08:30 02/01/23 08:00 02/01/23 07:30 02/01/23 07:08 02/01/23 07:08 02/01/23 07:00 02/01/23 06:30 02/01/23 11:17 High Flow Nasal Cannula 5 02/01/23 11:11 Nasal Cannula 5 02/01/23 08:00 High Flow Nasal Cannula 7 02/01/23 08:00 Room Air, High Flow Nasal Cannula 7 02/01/23 07:15 High Flow Nasal Cannula 7 02/01/23 07:32 Nasal Cannula 7 02/01/23 06:00 02/01/23 05:30 02/01/23 05:00 02/01/23 04:30 02/01/23 04:00 02/01/23 04:00 02/01/23 03:30 02/01/23 03:00 02/01/23 02:30 02/01/23 02:00 02/01/23 01:30 Laboratory Results Short CBC 02/01/23 Range/Units 05: WBC 11.62 H (4.8-10.8) K/ul Hgb 11.0 L (12.0-16.0) g/dl Hct 35.7 L (37.0-47.0) % Plt Count 266 (130-400) K/uL BMP 02/01/23 05:22 Sodium 138 Potassium 4.1 Chloride 100 Carbon Dioxide 32 BUN 18 Creatinine 0.56 L Glucose 127 H Calcium 9.2 Liver Function 02/01/23 Range/Units 05:22 Total Bilirubin 0.2 (0.2-1.0) mg/dl AST 12 L (13-39) U/L ALT 13 (7-52) U/L Alkaline Phosphatase 84 (34-104) U/L Albumin 3.7 (3.4-5.0) gm/dl Medications Administered Current Inpatient Medications Acetaminophen (Acetaminophen 325 Mg Tab) 650 mg PO Q4H PRN PRN Reason: Pain or Fever Stop: 03/01/23 10:04 Last Admin: 02/01/23 06:47 Dose: 650 mg Al Hydrox/Mg Hydrox/Simethicone (Aluminum/Magnesium Susp 30 Ml Udc) 15 ml PO Q4H PRN PRN Reason: Dyspepsia Stop: 03/01/23 10:04 Albuterol (Albuterol 0.083% Nebu Soln 3 Ml Vial) 2.5 mg NEB QIDR NABEEL; Protocol Stop: 03/01/23 18:59 Last Admin: 02/01/23 11:10 Dose: 2.5 mg Amlodipine Besylate (Amlodipine Besylate 5 Mg Tab) 2.5 mg PO DAILY [facility] Stop: 03/02/23 08:59 Last Admin: 02/01/23 08:27 Dose: 2.5 mg Aspirin (Aspirin 81 Mg Ectab) 81 mg PO QAM [facility] Stop: 03/02/23 08:59 Last Admin: 02/01/23 08:28 Dose: 81 mg Dextrose (Dextrose 50% 50 Ml Syringe) 25 - 50 ml IV UD PRN; Protocol PRN Reason: Hypoglycemia Protocol Stop: 03/01/23 13:49 Fentanyl Citrate (Fentanyl Citrate Pf 100 Mcg/2 Ml Vial) 50 mcg IV Q3H PRN PRN Reason: Pain Stop: 02/13/23 19:46 Last Admin: 02/01/23 02:26 Dose: 50 mcg Fluticasone/Vilanterol (Fluticasone/Vilanterol 200/25mcg 14 Puffs/Inhaler) 1 puffs INH DAILY NABEEL Stop: 03/01/23 10:59 Last Admin: 02/01/23 08:27 Dose: 1 puffs Glucagon (Glucagon For Inj 1 Mg Vial) 1 mg SQ UD PRN; Protocol PRN Reason: Hypoglycemia Protocol Stop: 03/01/23 13:49 Glucose (Glucose 10 Tab/Tube) 4 - 8 tab PO UD PRN; Protocol PRN Reason: Hypoglycemia Treatment Stop: 03/01/23 13:49 Glucose (Glucose 40% Gel 15 Gm Tube) 15 - 30 gm PO UD PRN; Protocol PRN Reason: Hypoglycemia Protocol Stop: 03/01/23 13:49 Heparin Sodium (Porcine) (Heparin Sod 5,000 Unit/0.5 Ml Vial) 5,000 units SQ Q1 2 NABEEL Stop: 03/02/23 20:59 Last Admin: 02/01/23 08:27 Dose: 5,000 units Azithromycin 500 mg/ Dextrose 255 mls @ 127.5 mls/hr IV Q24H NABEEL Stop: 02/06/23 10:44 Last Admin: 02/01/23 11:28 Dose: 127.5 mls/hr Cefepime HCl 2,000 mg/ Syringe 20 mls @ 5 mls/min IV Q8H [facility]; Protocol Stop: 02/06/23 15:59 Last Admin: 02/01/23 08:30 Dose: 5 mls/min Insulin Aspart (Insulin Aspart Per Unit Charge) 0 units SC ACHS NABEEL Stop: 03/01/23 16:29 Last Admin: 02/01/23 12:01 Dose: 4 units Levothyroxine Sodium (Levothyroxine Sodium 150 Mcg Tablet) 150 mcg PO DAILYBB NABEEL Stop: 03/02/23 06:29 Last Admin: 02/01/23 02:25 Dose: 150 mcg Magnesium Hydroxide (Magnesium Hydroxide Susp 30 Ml Udc) 30 ml PO Q12H PRN PRN Reason: Constipation Stop: 03/01/23 10:04 Metoprolol Succinate (Metoprolol Succ 25mg Ext Rel Tab) 12.5 mg PO BID NABEEL Stop: 03/01/23 20:59 Last Admin: 02/01/23 08:28 Dose: 12.5 mg Miscellaneous (Carbohydrates For Hypoglycemia ) 15 - 30 gm PO UD PRN PRN Reason: Hypoglycemia Protocol Stop: 03/01/23 13:49 Ondansetron HCl (Ondansetron Inj 2 Mg/Ml 2 Ml Vial) 4 mg IV Q6H PRN PRN Reason: Nausea Stop: 03/01/23 10:04 Polyethylene Glycol (Polyethylene (Miralax) 17 Gm Pack) 17 gm PO DAILY PRN PRN Reason: Constipation Stop: 03/01/23 10:04 Potassium Chloride (Potassium Chloride 10 Meq Tabcr) 10 meq PO DAILY NABEEL Stop: 03/02/23 08:59 Last Admin: 02/01/23 08:30 Dose: 10 meq Pravastatin Sodium (Pravastatin Sod 40 Mg Tab) 40 mg PO HS NABEEL Stop: 03/01/23 20:59 Last Admin: 01/31/23 20:32 Dose: 40 mg Sodium Chloride (Sodium Chlor 7% 4 Ml Neb) 4 ml NEB BIDR NABEEL Stop: 03/01/23 18:59 Last Admin: 02/01/23 07:29 Dose: 4 ml (8) CHF (congestive heart failure) Heart failure chronicity: acute on chronic Heart failure type: unspecified Qualified Code(s): I50.9 - Heart failure, unspecified
[2023-02-01] MEDS: PRAVASTATIN SOD 40 MG TAB PO SCH (19:25)
[2023-02-02 05:19] LABS: Basophils # (auto) 0.07 K/uL (0-0.2); Basophils % (auto) 0.6 %; Eosinophils # (auto) 0.42 K/uL (0-0.50); Eosinophils % (auto) 3.7 %; Hematocrit (blood only) 35.9 % (37.0-47.0); Hemoglobin 11.2 g/dl (12.0-16.0); Immature Granulocytes # (auto) 0.09 K/uL (0.01-0.20); Immature Granulocytes % (auto) 0.8 %; Lymphocytes # (auto) 0.94 K/uL (1.2-3.4); Lymphocytes % (auto) 8.3 %; Mean Corpuscular Hemoglobin 29.9 pg (25.0-34.0); Mean Corpuscular Hgb Conc 31.2 g/dL (32.0-36.0); Mean Corpuscular Volume 95.7 fL (80.0-100.0); Mean Platelet Volume 10.6 fL (9.4-12.4); Monocytes # (auto) 0.73 K/uL (0.11-0.59); Monocytes % (auto) 6.4 %; Neutrophils # (auto) 9.07 K/uL (1.40-6.50); Neutrophils % (auto) 80.2 %; Platelet Count 285 K/uL (130-400); RDW Coefficient of Variation 15.2 % (11.5-14.5); RDW Standard Deviation 53.4 fL (36.4-46.3); Red Blood Count 3.75 M/uL (4.20-5.40); White Blood Count 11.32 K/ul (4.8-10.8)
[2023-02-02 05:24] LABS: Creatinine Clr Calc Pharmacy 102.2 ml/min; Est GFR (African American) 112.1 ml/min; Est GFR (Non-African American) 96.7 ml/min; Phosphorus 3.4 mg/dl (2.5-4.9); Potassium 4.2 mmol/L (3.5-5.1)
[2023-02-02] MEDS: LEVOTHYROXINE SODIUM 150 MCG TABLET PO SCH (05:41)
[2023-02-02] MEDS: ACETAMINOPHEN 325 MG TAB PO PRN (07:33)
[2023-02-02] MEDS: ALBUTEROL 0.083% NEBU SOLN 3 ML VIAL NEB SCH ×4 (07:39→19:13)
[2023-02-02] MEDS: SODIUM CHLOR 7% 4 ML NEB NEB SCH ×2 (07:40→19:13)
--- NOTE | 2023-02-02 08:16 | Procedure Note ---
Procedure Note Date of Service February 02, 2023 Note Procedure: Removal of right-sided 8 Romansh pigtail catheter Proceduralist Dr. Lucero Anesthesia none Consent: Risks and benefits were discussed with patient. She agreed to proceed. Procedure patient was placed in an upright seated position. The dressing was taken down. The stay suture was clipped. On full expiration the catheter was pulled. It was observed to be intact. An occlusive dressing was applied. The patient tolerated the procedure well. We will check chest x-ray tomorrow morning. Estimated blood loss none Coding CPT Codes Pulmonary/Thoracic - Pulmonary and Thoracic: 67081 Remove lung catheter ([id number]) [facility] [place], [place] Procedure Codes (Charges) Pulmonary/Thoracic Procedure 1: Pulmonary and Thoracic: 06653 Remove lung catheter
--- NOTE | 2023-02-02 08:26 | Pulmonology Progress Note ---
Date of Service February 02, 2023 Assessment & Plan (1) COPD (chronic obstructive pulmonary disease): COPD type: unspecified COPD Qualified Code(s): J44.9 - Chronic obstructive pulmonary disease, unspecified (2) Pleural effusion on right: (3) Acute hypoxemic respiratory failure: (4) Right lower lobe pneumonia: (5) Pleural effusion, right: Plan Impression: 67-year-old female with overlap syndrome (obstructive lung disease/sleep disordered breathing) on CPAP as well as metastatic adenocarcinoma: Mets to bone and liver). She has not yet been initiated on chemotherapy or immunotherapy. She was admitted 01/30/2023 with hypoxemic respiratory failure. She was diuresed placed on BiPAP and had a pigtail catheter placed. There is been minimal output from the catheter over the last 36 hours and the patient is clinically stable. Her chest radiograph appears stable with persistent consolidation in the right lower lobe. Pigtail catheter was removed today. Recommendations: 1. Sleep disordered breathing: Continue nightly CPAP. The patient can bring her home machine in if it is more comfortable for her. She can follow-up with the [facility] outpatient sleep physicians with whom she is established. 2. Hypoxemic respiratory failure: Diastolic dysfunction questionable pneumonia. Currently day #3 azithromycin and cefepime. Cultures are negative. Can transition azithromycin to oral at 250 mg a day for 5 days and de-escalate cefepime down to cefuroxime orally for 5 days. 3. Morbid obesity: Weight loss is imperative. Consider referral to bariatric medicine and outpatient referral to circus trainer to assist with weight loss. 4. COPD: Patient was on Symbicort Spiriva and as needed albuterol in the outpatient setting. Continue for now. She is not bronchospastic and I do not think she would benefit from additional steroids at this point time. 5. Pleural effusion: Minimal output. The radiograph findings appear to represent right lower lobe consolidation rather than pleural effusion. Catheter will be removed and we will see how she does. If the fluid reaccumulates, consideration for Pleurx catheter in the outpatient setting might be appropriate. 6. Hypercarbic respiratory failure: The patient's pH is controlled currently. Would not try and normalize her CO2 levels. I think at this point in time compliance with BiPAP and oxygen as per her prior sleep study and clinical follow-up with her outpatient pulmonary group at [facility] and consideration for repeat ABG in 4 to 6 weeks would be appropriate. 7. The patient's consolidation the right lower lobe has been present and persistent. Unclear etiology at this point in time. Would not recommend bronchoscopy or biopsy at this point time as the patient is already been proven to have metastatic adenocarcinoma. Would initiate appropriate therapy and continue follow-up imaging. The above recommendations and plan were discussed with the patient. Questions were answered to the best my ability. Total of 35 minutes was spent in evaluation management and coordinating care of this patient including discussion with off going pulmonary service. Admission and Anticipated Discharge Date Admission Date: January 30, 2023 Subjective Patient seen and examined. She sitting up eating breakfast. She appears comfortable. She states her breathing is better. She said minimal output from the pigtail drain. She denies fevers chills or night sweats. No cough or sputum production. She denies any chest pain. Review of Systems Review of Systems: All systems reviewed & are unremarkable except as noted in Subjective Physical Exam Constitutional: WD/WN, vitals as above + morbidly obese Neck: trachea midline, no thyromegaly Respiratory: no respiratory distress, no labored breathing and not tachypneic Auscultation: + diminished lung sounds; no crackles and no wheezes Cardiovascular: RRR, no murmur, no edema Gastrointestinal (Abdomen): normal bowel sounds, soft, nontender, no hepatosplenomegaly Musculoskeletal: Extremities: extremities normal to inspection Skin: no rashes, warm and dry Neurologic: Nonfocal exam Lymphatic: no cervical lymphadenopathy Results & Data Results & Data Vital Signs (Past 12 Hours) Vital Signs Temp Pulse Pulse Resp BP BP Pulse Ox 02/02/23 07:40 80 20 95 02/02/23 07:17 36.5 C 55 L 19 119/73 92 02/02/23 02:54 36.4 C L 62 18 120/67 95 02/01/23 23:22 61 02/01/23 22:26 02/01/23 22:19 36.5 C 69 15 106/67 93 02/01/23 20:21 125/51 L 02/01/23 20:21 65 22 97 O2 Del Method O2 Flow Rate 02/02/23 07:40 Nasal Cannula 5 02/02/23 07:17 High Flow Nasal Cannula 7 02/02/23 02:54 Nasal Cannula 7 02/01/23 23:22 02/01/23 22:26 High Flow Nasal Cannula 7 02/01/23 22:19 High Flow Nasal Cannula 7 02/01/23 20:21 02/01/23 20:21 Laboratory Results Pleural fluid studies from 01/30/2023 showed a pH of 7.61. Pleural LDH 138. Pleural glucose 259. Gram stain and culture negative. Cytology pending. Compared to prior pleural fluid studies from 01/21, LDH was decreased and glucose was increased Critical Care Results & Data Vital Signs (Past 12 Hours) Vital Signs Temp Pulse Pulse Resp BP BP Pulse Ox 02/02/23 07:40 80 20 95 02/02/23 07:17 36.5 C 55 L 19 119/73 92 02/02/23 02:54 36.4 C L 62 18 120/67 95 02/01/23 23:22 61 02/01/23 22:26 02/01/23 22:19 36.5 C 69 15 106/67 93 02/01/23 20:21 125/51 L 02/01/23 20:21 65 22 97 O2 Del Method O2 Flow Rate 02/02/23 07:40 Nasal Cannula 5 02/02/23 07:17 High Flow Nasal Cannula 7 02/02/23 02:54 Nasal Cannula 7 02/01/23 23:22 02/01/23 22:26 High Flow Nasal Cannula 7 02/01/23 22:19 High Flow Nasal Cannula 7 02/01/23 20:21 02/01/23 20:21 Lab & Micro Results (Past 24 Hours) RBC 3.75 M/uL (4.20-5.40) L 02/02/23 WBC 11.32 K/ul (4.8-10.8) H 02/02/23 Hgb 11.2 g/dl (12.0-16.0) L 02/02/23 Hct 35.9 % (37.0-47.0) L 02/02/23 MCV 95.7 fL (80.0-100.0) 02/02/23 MCH 29.9 pg (25.0-34.0) 02/02/23 MCHC 31.2 g/dL (32.0-36.0) L 02/02/23 RDW Standard Deviation 53.4 fL (36.4-46.3) H 02/02/23 RDW Coefficient of Variation 15.2 % (11.5-14.5) H 02/02/23 Plt Count 285 K/uL (130-400) 02/02/23 MPV 10.6 fL (9.4-12.4) 02/02/23 Neutrophils (%) (Auto) 80.2 % 02/02/23 Lymphocytes (%) (Auto) 8.3 % 02/02/23 Monocytes # (Auto) 0.73 K/uL (0.11-0.59) H 02/02/23 Eosinophils # (Auto) 0.42 K/uL (0-0.50) 02/02/23 Immature Granulocyte % (Auto) 0.8 % 02/02/23 Neutrophils # (Auto) 9.07 K/uL (1.40-6.50) H 02/02/23 Lymphocytes # (Auto) 0.94 K/uL (1.2-3.4) L 02/02/23 Monocytes # (Auto) 0.73 K/uL (0.11-0.59) H 02/02/23 Eosinophils # (Auto) 0.42 K/uL (0-0.50) 02/02/23 Basophils # (Auto) 0.07 K/uL (0-0.2) 02/02/23 Immature Granulocyte # (Auto) 0.09 K/uL (0.01-0.20) 3 Na 136 mmol/L (136-145) 02/02/23 K 4.2 mmol/L (3.5-5.1) 02/02/23 Cl 101 mmol/L (98-107) 02/02/23 CO2 28 mmol/L (21-32) 02/02/23 Anion Gap 7 (3-11) 02/02/23 BUN 18 mg/dl (6-23) 02/02/23 Creatinine 0.58 mg/dl (0.6-1.2) L 02/02/23 Estimated GFR ( Amer) 112.1 ml/min 02/02/23 Estimated GFR (Non-Af Amer) 96.7 ml/min 02/02/23 BUN/Creatinine Ratio 31.0 (10-20) H 02/02/23 Glu 127 mg/dl (70-99(Fasting)) H 02/02/23 Ca 9.0 mg/dl (8.6-10.3) 02/02/23 Phosphorus Level 3.4 mg/dl (2.5-4.9) 02/02/23 Calcium Level 9.0 mg/dl (8.6-10.3) 02/02/23 04:17 Microbiology 01/30/23 Unknown Gram Stain - Final Sputum, Expectorated Sputum Culture - Final Light normal dunia. Diagnostic Findings (Past 24 Hours) Chest X-Ray 02/01/23 07:00 XR chest 1V portable CLINICAL HISTORY: follow up ptx and chest tube TECHNIQUE: Single frontal radiograph of the chest was obtained. Comparison: None available at the time of this dictation. FINDINGS: Right chest tube is stable. Cardiomegaly is noted. The lungs are clear. No evidence of pleural effusion or pneumothorax. IMPRESSION: The right basilar pneumothorax is no longer seen. Right chest tube is unchanged. ACT 112: Negative or not required by law. Electronically signed by: Marco A Dozier M.D. 02/01/2023 9:25 AM I & O Totals 24 Hours 02/01/23 02/02/23 02/03/23 06:59 06:59 06:59 Intake Total 255 / 255 1085 / 1085 Output Total 1000 / 1000 2080 / 2080 Balance -745 / -745 -995 / -995 Cumulative 01/30/23 08:01 thru 02/02/23 05:40 Intake Total 1595 Output Total 3780 Balance -2185 RT Ventilator Mngmt (Last Documented) Ventilator Ordered Settings Respiratory Rate 20 02/02/23 07:40 Fraction of Inspired Oxygen 7 02/01/23 19:53 Ventilator - PT Measurements Respiratory Rate 20 PG Care Time/CCT Total # of Minutes Spent Total Time Spent with Patient: Total time spent is greater than 50% in coordination of care (as documented) at patient's floor/unit and/or counseling patient: Coding Level of Care Code 72096 SUB INP/OBS CARE 2/35MIN Diagnoses COPD (chronic obstructive pulmonary disease) J44.9 COPD type: unspecified COPD Pleural effusion on right J90 Acute hypoxemic respiratory failure J96.01 Right lower lobe pneumonia J18.9
[2023-02-02] MEDS: INSULIN ASPART PER UNIT CHARGE SC SCH ×4 (08:28→20:43)
[2023-02-02] MEDS: amLODIPine BESYLATE 5 MG TAB PO SCH (08:30)
[2023-02-02] MEDS: FLUTICASONE/VILANTEROL 200/25MCG 14 PUFFS/INHALER INH SCH (08:31)
[2023-02-02] MEDS: ASPIRIN 81 MG ECTAB PO SCH (08:31)
[2023-02-02] MEDS: METOPROLOL SUCC 25MG EXT REL TAB PO SCH ×2 (08:32→20:44)
[2023-02-02] MEDS: HEPARIN SOD 5,000 UNIT/0.5 ML VIAL SQ SCH ×2 (08:33→20:44)
[2023-02-02] MEDS: POTASSIUM CHLORIDE 10 MEQ TABCR PO SCH (08:36)
[2023-02-02] MEDS: CEFEPIME 2,000 MG in SYRINGE 0 ML IV SCH (08:45)
[2023-02-02] MEDS: cefUROXime axetil 500 MG TAB PO SCH ×2 (09:25→20:44)
[2023-02-02] MEDS: AZITHROMYCIN 250 MG TAB PO SCH (09:25)
--- NOTE | 2023-02-02 09:45 | XRay Report ---
XR chest 1V portable CLINICAL HISTORY: follow up ptx and chest tube COMPARISON STUDY: Chest CT January 30, 2023 and chest radiograph February 01, 2023. FINDINGS: Right basilar pleural catheter is unchanged in position. There is no pneumothorax. Small re sidual right pleural effusion with right basilar opacity is unchanged. Cardiomegaly and mild intersti tial thickening are unchanged. IMPRESSION: No change in appearance of the chest. Right basilar pleural catheter in place with a sma ll residual right pleural effusion and right basilar airspace opacity. No pneumothorax. ACT 112: Negative or not required by law. Electronically signed by: Nehemias Holt M.D. 02/02/2023 9:44 AM
--- NOTE | 2023-02-02 16:26 | Hospitalist Progress Note ---
Date of Service February 02, 2023 Assessment & Plan (1) Acute and chronic respiratory failure with hypoxia: Plan: 67-year-old female presents with shortness of breath. New diagnosis of metastatic adenocarcinoma of the lung with mets mets to bone and liver early January 2023. Symptoms appear to be exacerbated by acute on chronic CHF. Worsening right pleural effusion to be evaluated by pulmonary for thoracentesis or Pleurx cath placement. Diuresis with Lasix, BiPAP as needed antibiotics and nebulizers. Multifactorial in the setting of right-sided pneumonia with parapneumonic effusion, due to on chronic diastolic failure and m lung cancer Status post right-sided chest tube placement and removal on 02/02 Presented to the ED with increasing shortness of breath. CTA chest on admission reviewedno PE. Cardiomegaly and mild pulmonary edema. Also right middle lobe and right lower lobe consolidation present. Was admitted to ICU initially due to need for high flow nasal cannula and BiPAP. Underwent placement of chest tube with removal of 900 cc of pleural effusion Pleural effusion analysis reviewed; exudative. Pulmonology recommendations reviewed; recommend azithromycin and cefuroxime orally for 5 days Started on IV diuresis for now (2) Metastatic lung cancer (metastasis from lung to other site): Plan: Saw Dr. Kirby on 01/22; Recommended Keytruda and Radiation to left arm. Plan to start treatment in 3 weeks or so; awaiting further liver biopsy results (3) Pleural effusion, right: Plan: As above (4) COPD (chronic obstructive pulmonary disease): Plan: COPD group D- not in exacerbation. Continue ICS/LABA/LAMA inhaler. No indication for steroids currently. Pulmonary hypertension-likely secondary chronic lung disease. Per pulmonology, she is not a candidate for right heart cath at this time and they were considering trial of vasodilator such as sildenafil. Optimizing volume status through diuresis. Still requiring 5 L of oxygen through high flow nasal cannula to maintain saturations (5) BHAVIK on CPAP: (6) CAD (coronary artery disease): Plan: No acute cardiac symptoms (7) Carotid stenosis: (8) CHF (congestive heart failure): Plan: Echo 10/2022 with EF 55 to 60%, grade 1 diastolic dysfunction, systolic pulm artery pressure 51 mmHg (9) HTN (hypertension): (10) HLD (hyperlipidemia): (11) Diabetes mellitus, type II: Plan: Diabetes mellitus type 2: Hold metformin, continue SSI, diabetic diet (12) Hypothyroid: Plan: Continue with the replacement Other significant medical condition as follows: CAD: Carotid stenosis: NSTEMI 2008; takes baby aspirin continue HTN: Continue amlodipine HLD: On Zetia, [place] Hypothyroidism: Continue Synthroid Goals of Care conversation;counseling: Lengthy conversation held with patient and her daughter at bedside on admission. Patient is at the beginning of her oncology journey with her initial appointment occurring last week. Hematology oncology did present the poss ibility of having palliative medicine presents and that was readdressed today in order to develop rapport along with providing symptom management and goals of care throughout her chemotherapy and radiation journey. Patient expressed that at this time she is aware of that service but would like to hold off on official consultation at this time until she is able to begin treatment and see how it af fects her daily life. To note patient does live alone at home however does have her daughter providing support. Plan CODE STATUS: Full code VTE prophylaxis: Subcu heparin . Admission and Anticipated Discharge Date Admission Date: January 30, 2023 Subjective Patient seen and examined at bedside. She reports her shortness of breath has slightly improved. She desaturates on exertion. Review of Systems Review of Systems: All systems reviewed & are unremarkable except as noted in Subjective Physical Exam Physical Exam: Constitutional: WD/WN, vitals as above, NAD, sitting up in bed, pleasant, conversing easily Respiratory: Decreased breath sound at right lower base. Bilateral crackles heard. Cardiovascular: RRR, no murmur, no edema Vessels: no JVD or carotid bruit Chest: normal inspection of chest Abdomen: normal bowel sounds, soft, nontender, no hepatosplenomegaly Musculoskeletal: no cyanosis or clubbing, extremities motor strength 5/5 Skin: no rashes, warm and dry normal turgor Neurologic: PERRL, EOMI, accommodation nl, no face palsy, no dysarthria CN's II- XI intact bilaterally and moves all extremities Psychiatric: A+Ox3, euthymic affect Lymphatic: no cervical or axillary lymphadenopathy : deferred Results & Data Results & Data Vital Signs (Past 12 Hours) Vital Signs Temp Pulse Pulse Resp BP BP Pulse Ox 02/02/23 15:28 66 18 96 02/02/23 09:00 58 L 02/02/23 09:00 02/02/23 15:01 36.8 C 71 19 112/62 95 02/02/23 11:58 36.7 C 63 21 115/63 98 02/02/23 11:37 89 18 90 02/02/23 07:40 80 20 95 02/02/23 07:17 36.5 C 55 L 19 119/73 92 O2 Del Method O2 Flow Rate 02/02/23 15:28 Nasal Cannula 7 02/02/23 09:00 02/02/23 09:00 High Flow Nasal Cannula 7 02/02/23 15:01 High Flow Nasal Cannula 7 02/02/23 11:58 High Flow Nasal Cannula 7 02/02/23 11:37 Nasal Cannula 7 02/02/23 07:40 Nasal Cannula 5 02/02/23 07:17 High Flow Nasal Cannula 7 Laboratory Results Laboratory Results WBC 11.32 K/ul (4.8-10.8) H 02/02/23 04:17 RBC 3.75 M/uL (4.20-5.40) L 02/02/23 04:17 Hgb 11.2 g/dl (12.0-16.0) L 02/02/23 04:17 Hct 35.9 % (37.0-47.0) L 02/02/23 04:17 MCV 95.7 fL (80.0-100.0) 02/02/23 04:17 MCH 29.9 pg (25.0-34.0) 02/02/23 04:17 MCHC 31.2 g/dL (32.0-36.0) L 02/02/23 04:17 RDW Std Deviation 53.4 fL (36.4-46.3) H 02/02/23 04:17 RDW Coeff of Naa 15.2 % (11.5-14.5) H 02/02/23 04:17 Plt Count 285 K/uL (130-400) 02/02/23 04:17 MPV 10.6 fL (9.4-12.4) 02/02/23 04:17 Immature Gran % (Auto) 0.8 % 02/02/23 04:17 Neut % (Auto) 80.2 % 02/02/23 04:17 Lymph % (Auto) 8.3 % 02/02/23 04:17 Garrett % (Auto) 6.4 % 02/02/23 04:17 Eos % (Auto) 3.7 % 02/02/23 04:17 Baso % (Auto) 0.6 % 02/02/23 04:17 Neut # (Auto) 9.07 K/uL (1.40-6.50) H 02/02/23 04:17 Lymph # (Auto) 0.94 K/uL (1.2-3.4) L 02/02/23 04:17 Garrett # (Auto) 0.73 K/uL (0.11-0.59) H 02/02/23 04:17 Eos # (Auto) 0.42 K/uL (0-0.50) 02/02/23 04:17 Baso # (Auto) 0.07 K/uL (0-0.2) 02/02/23 04:17 Immature Gran # (Auto) 0.09 K/uL (0.01-0.20) 02/02/23 04:17 PT 10.9 Seconds (9.0-12.0) 01/30/23 08:39 INR 1.0 (0.9-1.1) 01/30/23 08:39 APTT 27.6 Seconds (21.0-31.0) 01/30/23 08:39 PTT Ratio 1.0 01/30/23 08:39 VBG pH 7.42 (7.36-7.41) H 01/31/23 09:14 VBG pCO2 56 mmHg (38-50) H 01/31/23 09:14 VBG pO2 60 mmHg 01/31/23 09:14 VBG HCO3 36 mmol/L 01/31/23 09:14 VBG O2 Saturation 89.5 % 01/31/23 09:14 VBG Base Excess 9.7 mEq/L 01/31/23 09:14 Sodium 136 mmol/L (136-145) 02/02/23 04:17 Potassium 4.2 mmol/L (3.5-5.1) 02/02/23 04:17 Chloride 101 mmol/L (98-107) 02/02/23 04:17 Carbon Dioxide 28 mmol/L (21-32) 02/02/23 04:17 Anion Gap 7 (3-11) 02/02/23 04:17 BUN 18 mg/dl (6-23) 02/02/23 04:17 Creatinine 0.58 mg/dl (0.6-1.2) L 02/02/23 04:17 Est Cr Clr Drug Dosing 102.2 ml/min 02/02/23 04:17 Est GFR ( Amer) 112.1 ml/min 02/02/23 04:17 Est GFR (Non-Af Amer) 96.7 ml/min 02/02/23 04:17 BUN/Creatinine Ratio 31.0 (10-20) H 02/02/23 04:17 Glucose 127 mg/dl (70-99(Fasting)) H 02/02/23 04:17 POC Glucose 140 mg/dl (70-99) H 02/02/23 11:43 Estimat Average Glucose 148 mg/dl 01/31/23 05:38 Hemoglobin A1c 6.8 % (4.5-5.6) H 01/31/23 05:38 Calcium 9.0 mg/dl (8.6-10.3) 02/02/23 04:17 Phosphorus 3.4 mg/dl (2.5-4.9) 02/02/23 04:17 Magnesium 2.0 mg/dl (1.7-2.4) 02/01/23 05:22 Total Bilirubin 0.2 mg/dl (0.2-1.0) 02/01/23 05:22 AST 12 U/L (13-39) L 02/01/23 05:22 ALT 13 U/L (7-52) 02/01/23 05:22 Alkaline Phosphatase 84 U/L (34-104) 02/01/23 05:22 Troponin I High Sens 10.2 pg/ml (0-14) 01/30/23 08:39 B-Natriuretic Peptide 70 pg/ml (0-100) 01/30/23 08:39 Total Protein 6.8 gm/dl (6.0-8.3) 02/01/23 05:22 Albumin 3.7 gm/dl (3.4-5.0) 02/01/23 05:22 Globulin 3.1 gm/dl (2.5-4.0) 02/01/23 05:22 Albumin/Globulin Ratio 1.2 (0.9-2) 02/01/23 05:22 Procalcitonin 0.15 ng/ml (0-0.5) 01/30/23 08:39 Urine Color Yellow 01/30/23 09:21 Urine Appearance Clear (Clear) 01/30/23 09:21 Urine pH 5.5 (4.5-7.5) 01/30/23 09:21 Ur Specific [place] 1.006 (1.000-1.030) 01/30/23 09:21 Urine Protein Negative (Negative) 01/30/23 09:21 Urine Glucose (UA) Negative (Negative) 01/30/23 09:21 Urine Ketones Negative (Negative) 01/30/23 09:21 Urine Blood Negative (Negative) 01/30/23 09:21 Urine Nitrite Negative (Negative) 01/30/23 09:21 Urine Bilirubin Negative (Negative) 01/30/23 09:21 Urine Urobilinogen Negative (Negative) 01/30/23 09:21 Ur Leukocyte Esterase Negative (Negative) 01/30/23 09:21 Pleural pH 7.61 (7.3-7.4) H 01/30/23 Unknown Pleural LDH 138 U/L 01/30/23 Unknown Pleural Glucose 259 mg/dl 01/30/23 Unknown Nasal Screen MRSA (PCR) Negative (Negative) 01/30/23 14:49 SARS-CoV-2, RNA, NAAT NEGATIVE (NEGATIVE) 01/30/23 08:39 Impressions Chest CTA 01/30/23 13:02 CT ANGIOGRAPHY OF THE CHEST, PULMONARY EMBOLUS PROTOCOL CLINICAL HISTORY: Dyspnea. Lung cancer. COMPARISON STUDY: Chest CT January 18, 2023 and chest radiograph performed earlier today. PET/CT December 11, 2022. TECHNIQUE: Following IV administration of 120 mL of Optiray, helical axial images of the chest were obtained utilizing the pulmonary embolus protocol. Maximal intensity projections and sagittal and coronal reformats were viewed on an independent 3D workstation. IV contrast was administered without complication. Automated exposure control was utilized for the study. A dose lowering technique was utilized adhering to the principles of ALARA. CT DOSE: 867.49 mGy.cm FINDINGS: No pulmonary emboli are identified. Cardiomegaly is noted. There is no pericardial effusion. Mildly enlarged mediastinal and bilateral hilar lymph nodes are similar to prior CT. Mildly enlarged gastrohepatic ligament lymph nodes are also similar to CT of January 18, 2023. Index node measures 1.6 x 1.3 cm. There is no pneumothorax. A small to moderate right pleural effusion is similar to prior CT. Extensive right middle lobe and lower lobe airspace opacity is also similar to prior exam. Areas of decreased enhancement are again noted. No rim- enhancing fluid collection is present. The known right lower lobe lesion is obscured on this exam. Interlobular septal thickening is present. A 7 mm lingular nodule is unchanged from earlier exams. This is likely benign. Scattered small sclerotic metastases and numerous hepatic metastases are again visualized. The appearance of the chest has not significantly changed since prior chest CT. IMPRESSION: 1. No pulmonary emboli identified. 2. Small to moderate right pleural effusion, similar to prior CT. Extensive right middle lobe and right lower lobe consolidation which is also similar to prior exam. This could reflect pneumonia or radiation pneumonitis. 3. Cardiomegaly with mild interstitial pulmonary edema. 4. Redemonstration of jacquelyn, skeletal and hepatic metastases. ACT 112: Negative or not required by law. Electronically signed by: Nehemias Holt M.D. 01/30/2023 2:16 PM Chest X-Ray 02/02/23 07:00 XR chest 1V portable CLINICAL HISTORY: follow up ptx and chest tube COMPARISON STUDY: Chest CT January 30, 2023 and chest radiograph February 01, 2023. FINDINGS: Right basilar pleural catheter is unchanged in position. There is no pneumothorax. Small residual right pleural effusion with right basilar opacity is unchanged. Cardiomegaly and mild interstitial thickening are unchanged. IMPRESSION: No change in appearance of the chest. Right basilar pleural catheter in place with a small residual right pleural effusion and right basilar airspace opacity. No pneumothorax. ACT 112: Negative or not required by law. Electronically signed by: Nehemias Holt M.D. 02/02/2023 9:44 AM (8) CHF (congestive heart failure) Heart failure chronicity: acute on chronic Heart failure type: unspecified Qualified Code(s): I50.9 - Heart failure, unspecified
[2023-02-02] MEDS: FUROSEMIDE 40 MG/4 ML VIAL IV SCH (17:47)
[2023-02-02] MEDS: PRAVASTATIN SOD 40 MG TAB PO SCH (20:44)
[2023-02-03] MEDS: LEVOTHYROXINE SODIUM 150 MCG TABLET PO SCH (05:37)
[2023-02-03 06:36] LABS: Basophils # (auto) 0.07 K/uL (0-0.2); Basophils % (auto) 0.6 %; Eosinophils # (auto) 0.43 K/uL (0-0.50); Eosinophils % (auto) 3.6 %; Hematocrit (blood only) 34.5 % (37.0-47.0); Hemoglobin 10.6 g/dl (12.0-16.0); Immature Granulocytes # (auto) 0.11 K/uL (0.01-0.20); Immature Granulocytes % (auto) 0.9 %; Lymphocytes # (auto) 1.01 K/uL (1.2-3.4); Lymphocytes % (auto) 8.3 %; Mean Corpuscular Hemoglobin 28.8 pg (25.0-34.0); Mean Corpuscular Hgb Conc 30.7 g/dL (32.0-36.0); Mean Corpuscular Volume 93.8 fL (80.0-100.0); Mean Platelet Volume 10.1 fL (9.4-12.4); Monocytes % (auto) 6.6 %; Neutrophils # (auto) 9.68 K/uL (1.40-6.50); Platelet Count 249 K/uL (130-400); RDW Coefficient of Variation 14.7 % (11.5-14.5); RDW Standard Deviation 50.8 fL (36.4-46.3); Red Blood Count 3.68 M/uL (4.20-5.40)
--- NOTE | 2023-02-03 06:59 | XRay Report ---
XR chest 1V portable CLINICAL HISTORY: follow up ptx and chest tube COMPARISON STUDY: Chest CT January 30, 2023. Chest radiograph February 02, 2023. FINDINGS: The right chest tube has been removed. There is no pneumothorax. Right basilar opacity and a small right pleural effusion are similar to prior exam. Cardiomegaly is unchanged. IMPRESSION: 1. Interval removal of the right chest tube. No pneumothorax. No change in right basilar opacity with a small right pleural effusion. 2. Cardiomegaly. ACT 112: Negative or not required by law. Electronically signed by: Nehemias Holt M.D. 02/03/2023 6:57 AM
[2023-02-03] MEDS: SODIUM CHLOR 7% 4 ML NEB NEB SCH ×2 (07:03→19:25)
[2023-02-03] MEDS: ALBUTEROL 0.083% NEBU SOLN 3 ML VIAL NEB SCH ×4 (07:03→19:25)
[2023-02-03 07:05] LABS: Albumin Globulin Ratio 1.2 (0.9-2); Albumin Level 3.6 gm/dl (3.4-5.0); BUN Creatinine Ratio 32.7 (10-20); Bilirubin,Total 0.3 mg/dl (0.2-1.0); Calcium 9.1 mg/dl (8.6-10.3); Creatinine Clr Calc Pharmacy 118.4 ml/min; Est GFR (African American) 117.7 ml/min; Est GFR (Non-African American) 101.5 ml/min; Globulin 2.9 gm/dl (2.5-4.0); Total Protein 6.5 gm/dl (6.0-8.3)
[2023-02-03] MEDS: amLODIPine BESYLATE 5 MG TAB PO SCH (08:18)
[2023-02-03] MEDS: AZITHROMYCIN 250 MG TAB PO SCH (08:19)
[2023-02-03] MEDS: METOPROLOL SUCC 25MG EXT REL TAB PO SCH ×2 (08:19→20:15)
[2023-02-03] MEDS: cefUROXime axetil 500 MG TAB PO SCH ×2 (08:19→20:15)
[2023-02-03] MEDS: ASPIRIN 81 MG ECTAB PO SCH (08:19)
[2023-02-03] MEDS: HEPARIN SOD 5,000 UNIT/0.5 ML VIAL SQ SCH ×2 (08:20→20:16)
[2023-02-03] MEDS: FLUTICASONE/VILANTEROL 200/25MCG 14 PUFFS/INHALER INH SCH (08:20)
[2023-02-03] MEDS: INSULIN ASPART PER UNIT CHARGE SC SCH ×4 (08:24→20:58)
[2023-02-03] MEDS: POTASSIUM CHLORIDE 10 MEQ TABCR PO SCH (08:27)
--- NOTE | 2023-02-03 09:32 | Pulmonology Progress Note ---
Date of Service February 03, 2023 Assessment & Plan (1) Metastatic lung cancer (metastasis from lung to other site): (2) COPD (chronic obstructive pulmonary disease): (3) Pleural effusion on right: (4) BHAVIK on CPAP: (5) Acute and chronic respiratory failure with hypoxia: Plan IMPRESSION: 67-year-old female presenting with acute on chronic hypoxemic respiratory failure in the setting of COPD, CHF, and sciatic adenocarcinoma pending first treatment with chemotherapy and immunotherapy. Patient has been admitted recently with thoracentesis and characterization of RIGHT-sided pleural fluid performed. She had pigtail catheter placed during presentation to this hospitalization which was removed yesterday. RECOMMENDATIONS: 1. Acute on chronic hypoxemic respiratory failure - * Multifactorial in the COPD patient with metastatic adenocarcinoma and recurrent pleural effusion. * Patient's effusion is likely medicare sales representative of malignant effusion. As discussed previously, the consolidation of the RIGHT lower lobe is likely medicare sales representative of worsening primary malignancy as opposed to pneumonia process. * Finish course of antibiotics as previously recommended. * Continue to titrate down supplemental oxygen to the patient's baseline of 3 to 4 L. 2. Effusion - * Likely representing malignant effusion. * Chest x-ray demonstrate no significant reaccumulation. * Patient likely will require Pleurx catheter placement if she continues to reaccumulate. 3. BHAVIK - * Continue NIPPV settings. * She may continue to use her own device. 4. COPD - * No bronchospastic on exam today. * Would continue her home inhalers when discharged. 5. Metastatic Adenocarcinoma of the Lung - * Follows with Dr. Kirby. * Had recent appointment and is scheduled to start chemotherapy and radiation. Thank you for allowing us to participate in the care of this patient. We will continue to follow along during inpatient admission. Admission and Anticipated Discharge Date Admission Date: January 30, 2023 Subjective Patient seen and evaluated at bedside. She is awake, alert, and oriented. She reports that her breathing continues to feel improved. She is currently on 6 L nasal cannula. She did ambulate to and from the restroom and developed some shortness of breath. She reports some slight discomfort at the site of the chest tube, but otherwise feels improved. Review of Systems Review of Systems: A complete 6 point review of systems was reviewed with the patient with pertinent positives and negatives as per history of present illness. All else were negative. Physical Exam Physical Exam: VITAL SIGNS - Vital signs and nursing notes were reviewed. GENERAL - 68-year-old female appearing her stated age who is in no acute distress. Communicates well with provider and answers questions appropriately. SKIN - RIGHT sided chest tube site clean, dry, and intact. LUNGS - Auscultation reveals Diminished breath sounds at the bilateral bases. CARDIAC - RRR with S1/S2. No murmur, rubs, or gallops appreciated. EXTREMITIES - No pretibial edema present. +3/5 radial palpated throughout. PSYCH - A&Ox3 and cooperates fully with examiner. Pt is very pleasant and interacts well with examiner. Results & Data Results & Data Vital Signs (Past 12 Hours) Vital Signs Temp Pulse Pulse Pulse Resp BP Pulse Ox 02/03/23 08:00 36.8 C 62 18 132/80 92 02/03/23 07:04 60 18 93 02/03/23 04:27 36.4 C L 70 22 128/77 94 02/03/23 00:58 61 02/02/23 22:57 36.5 C 62 19 106/69 95 O2 Del Method O2 Flow Rate 02/03/23 08:00 CPAP 7 02/03/23 07:04 CPAP 7 02/03/23 04:27 Nasal Cannula 7 02/03/23 00:58 02/02/23 22:57 High Flow Nasal Cannula 7 PG Care Time/CCT Total # of Minutes Spent Total Time Spent with Patient: Total time spent is greater than 50% in coordination of care (as documented) at patient's floor/unit and/or counseling patient: Coding Level of Care Code 25519 SUB INP/OBS CARE 3/50MIN Diagnoses Metastatic lung cancer (metastasis from lung to other site) C34.90 COPD (chronic obstructive pulmonary disease) J44.9 Pleural effusion on right J90 BHAVIK on CPAP G47.33; Z99.89 Acute and chronic respiratory failure with hypoxia J96.21
--- NOTE | 2023-02-03 14:54 | Hospitalist Progress Note ---
Date of Service February 03, 2023 Assessment & Plan (1) Acute and chronic respiratory failure with hypoxia: Plan: 67-year-old female presents with shortness of breath. New diagnosis of metastatic adenocarcinoma of the lung with mets mets to bone and liver early January 2023. Symptoms appear to be exacerbated by acute on chronic CHF. Worsening right pleural effusion to be evaluated by pulmonary for thoracentesis or Pleurx cath placement. Diuresis with Lasix, BiPAP as needed antibiotics and nebulizers. Multifactorial in the setting of right-sided pneumonia with parapneumonic effusion, due to on chronic diastolic failure and m lung cancer Status post right-sided chest tube placement and removal on 02/02 Presented to the ED with increasing shortness of breath. CTA chest on admission reviewedno PE. Cardiomegaly and mild pulmonary edema. Also right middle lobe and right lower lobe consolidation present. Was admitted to ICU initially due to need for high flow nasal cannula and BiPAP. Underwent placement of chest tube with removal of 900 cc of pleural effusion Pleural effusion analysis reviewed; exudative. Pulmonology recommendations reviewed; recommend azithromycin and cefuroxime orally for 5 days Started on IV diuresis for now. Continue on IV Lasix 40 mg twice daily. (2) Metastatic lung cancer (metastasis from lung to other site): Plan: Saw Dr. Kirby on 01/22; Recommended Keytruda and Radiation to left arm. Plan to start treatment in 3 weeks or so; awaiting further liver biopsy results (3) Pleural effusion, right: Plan: As above (4) COPD (chronic obstructive pulmonary disease): Plan: COPD group D- not in exacerbation. Continue ICS/LABA/LAMA inhaler. No indication for steroids currently. Pulmonary hypertension-likely secondary chronic lung disease. Per pulmonology, she is not a candidate for right heart cath at this time and they were considering trial of vasodilator such as sildenafil. Optimizing volume status through diuresis. Still requiring 5 L of oxygen through high flow nasal cannula to maintain saturations (5) BHAVIK on CPAP: (6) CAD (coronary artery disease): Plan: No acute cardiac symptoms (7) Carotid stenosis: (8) CHF (congestive heart failure): Plan: Acute on chronic diastolic CHF Echo 10/2022 with EF 55 to 60%, grade 1 diastolic dysfunction, systolic pulm artery pressure 51 mmHg Continue on Lasix 40 mg IV twice daily. (9) HTN (hypertension): (10) HLD (hyperlipidemia): (11) Diabetes mellitus, type II: Plan: Diabetes mellitus type 2: Hold metformin, continue SSI, diabetic diet (12) Hypothyroid: Plan: Continue with the replacement Other significant medical condition as follows: CAD: Carotid stenosis: NSTEMI 2008; takes baby aspirin continue HTN: Continue amlodipine HLD: On Zet[place], [place] Hypothyroidism: Continue Synthroid Goals of Care conversation;counseling: Lengthy conversation held with patient and her daughter at bedside on admission. Patient is at the beginning of her oncology journey with her initial appointment occurring last week. Hematology oncology did present the possibility of having palliative medicine presents and that was readdressed today in order to develop rapport along with providing symptom management and goals of care throughout her chemotherapy and radiation journey. Patient expressed that at this time she is aware of that service but would like to hold off on official consultation at this time until she is able to begin treatment and see how it affects her daily life. To note patient does live alone at home however does have her daughter providing support. Plan CODE STATUS: Full code VTE prophylaxis: Subcu heparin . Time spent evaluating patient, direct bedside care, chart review, placing orders, interpretation of diagnostic studies, discussion with consultants, patient, and family members, as well as other required patient management activities is 60 minutes. Please note the above document was generated using voice recognition software. It may contain grammatical, syntax or spelling errors. Any formal questions or concerns about the content, text or information contained within the body of this dictation should be directly addressed to the provider for clarification Admission and Anticipated Discharge Date Admission Date: January 30, 2023 Subjective Patient seen and examined at bedside. She appears to be in shortness of breath. She is currently requiring high flow nasal cannula at 6 L/min. Review of Systems Review of Systems: All systems reviewed & are unremarkable except as noted in Subjective Physical Exam Physical Exam: Constitutional: WD/WN, vitals as above, NAD, sitting up in bed, pleasant, conversing easily Respiratory: Decreased breath sound at right lower base. Bilateral crackles heard. Cardiovascular: RRR, no murmur, no edema Vessels: no JVD or carotid bruit Chest: normal inspection of chest Abdomen: normal bowel sounds, soft, nontender, no hepatosplenomegaly Musculoskeletal: no cyanosis or clubbing, extremities motor strength 5/5 Skin: no rashes, warm and dry normal turgor Neurologic: PERRL, EOMI, accommodation nl, no face palsy, no dysarthria CN's II- XI intact bilaterally and moves all extremities Psychiatric: A+Ox3, euthymic affect Lymphatic: no cervical or axillary lymphadenopathy : deferred Results & Data Results & Data Vital Signs (Past 12 Hours) Vital Signs Temp Pulse Pulse Pulse Resp BP BP 02/03/23 12:00 36.3 C L 64 20 103/72 02/03/23 11:53 02/03/23 10:54 67 16 02/03/23 10:10 57 L 02/03/23 08:00 36.8 C 62 18 132/80 02/03/23 07:04 60 18 02/03/23 04:27 36.4 C L 70 22 128/77 Pulse Ox O2 Del Method O2 Flow Rate 02/03/23 12:00 97 Nasal Cannula 6 02/03/23 11:53 High Flow Nasal Cannula 6 02/03/23 10:54 97 Nasal Cannula 7 02/03/23 10:10 02/03/23 08:00 92 CPAP 7 02/03/23 07:04 93 CPAP 7 02/03/23 04:27 94 Nasal Cannula 7 Laboratory Results Laboratory Results WBC 12.10 K/ul (4.8-10.8) H 02/03/23 06:16 RBC 3.68 M/uL (4.20-5.40) L 02/03/23 06:16 Hgb 10.6 g/dl (12.0-16.0) L 02/03/23 06:16 Hct 34.5 % (37.0-47.0) L 02/03/23 06:16 MCV 93.8 fL (80.0-100.0) 02/03/23 06:16 MCH 28.8 pg (25.0-34.0) 02/03/23 06:16 MCHC 30.7 g/dL (32.0-36.0) L 02/03/23 06:16 RDW Std Deviation 50.8 fL (36.4-46.3) H 02/03/23 06:16 RDW Coeff of Naa 14.7 % (11.5-14.5) H 02/03/23 06:16 Plt Count 249 K/uL (130-400) 02/03/23 06:16 MPV 10.1 fL (9.4-12.4) 02/03/23 06:16 Immature Gran % (Auto) 0.9 % 02/03/23 06:16 Neut % (Auto) 80.0 % 02/03/23 06:16 Lymph % (Auto) 8.3 % 02/03/23 06:16 Stone % (Auto) 6.6 % 02/03/23 06:16 Eos % (Auto) 3.6 % 02/03/23 06:16 Baso % (Auto) 0.6 % 02/03/23 06:16 Neut # (Auto) 9.68 K/uL (1.40-6.50) H 02/03/23 06:16 Lymph # (Auto) 1.01 K/uL (1.2-3.4) L 02/03/23 06:16 Stone # (Auto) 0.80 K/uL (0.11-0.59) H 02/03/23 06:16 Eos # (Auto) 0.43 K/uL (0-0.50) 02/03/23 06:16 Baso # (Auto) 0.07 K/uL (0-0.2) 02/03/23 06:16 Immature Gran # (Auto) 0.11 K/uL (0.01-0.20) 02/03/23 06:16 PT 10.9 Seconds (9.0-12.0) 01/30/23 08:39 INR 1.0 (0.9-1.1) 01/30/23 08:39 APTT 27.6 Seconds (21.0-31.0) 01/30/23 08:39 PTT Ratio 1.0 01/30/23 08:39 VBG pH 7.42 (7.36-7.41) H 01/31/23 09:14 VBG pCO2 56 mmHg (38-50) H 01/31/23 09:14 VBG pO2 60 mmHg 01/31/23 09:14 VBG HCO3 36 mmol/L 01/31/23 09:14 VBG O2 Saturation 89.5 % 01/31/23 09:14 VBG Base Excess 9.7 mEq/L 01/31/23 09:14 Sodium 136 mmol/L (136-145) 02/03/23 06:16 Potassium 4.0 mmol/L (3.5-5.1) 02/03/23 06:16 Chloride 99 mmol/L (98-107) 02/03/23 06:16 Carbon Dioxide 30 mmol/L (21-32) 02/03/23 06:16 Anion Gap 7 (3-11) 02/03/23 06:16 BUN 16 mg/dl (6-23) 02/03/23 06:16 Creatinine 0.49 mg/dl (0.6-1.2) L 02/03/23 06:16 Est Cr Clr Drug Dosing 118.4 ml/min 02/03/23 06:16 Est GFR ( Amer) 117.7 ml/min 02/03/23 06:16 Est GFR (Non-Af Amer) 101.5 ml/min 02/03/23 06:16 BUN/Creatinine Ratio 32.7 (10-20) H 02/03/23 06:16 Glucose 126 mg/dl (70-99(Fasting)) H 02/03/23 06:16 POC Glucose 133 mg/dl (70-99) H 02/03/23 12:03 Estimat Average Glucose 148 mg/dl 01/31/23 05:38 Hemoglobin A1c 6.8 % (4.5-5.6) H 01/31/23 05:38 Calcium 9.1 mg/dl (8.6-10.3) 02/03/23 06:16 Phosphorus 3.4 mg/dl (2.5-4.9) 02/02/23 04:17 Magnesium 2.0 mg/dl (1.7-2.4) 02/01/23 05:22 Total Bilirubin 0.3 mg/dl (0.2-1.0) 02/03/23 06:16 AST 20 U/L (13-39) 02/03/23 06:16 ALT 26 U/L (7-52) 02/03/23 06:16 Alkaline Phosphatase 92 U/L (34-104) 02/03/23 06:16 Troponin I High Sens 10.2 pg/ml (0-14) 01/30/23 08:39 B-Natriuretic Peptide 70 pg/ml (0-100) 01/30/23 08:39 Total Protein 6.5 gm/dl (6.0-8.3) 02/03/23 06:16 Albumin 3.6 gm/dl (3.4-5.0) 02/03/23 06:16 Globulin 2.9 gm/dl (2.5-4.0) 02/03/23 06:16 Albumin/Globulin Ratio 1.2 (0.9-2) 02/03/23 06:16 Procalcitonin 0.15 ng/ml (0-0.5) 01/30/23 08:39 Urine Color Yellow 01/30/23 09:21 Urine Appearance Clear (Clear) 01/30/23 09:21 Urine pH 5.5 (4.5-7.5) 01/30/23 09:21 Ur Specific [place] 1.006 (1.000-1.030) 01/30/23 09:21 Urine Protein Negative (Negative) 01/30/23 09:21 Urine Glucose (UA) Negative (Negative) 01/30/23 09:21 Urine Ketones Negative (Negative) 01/30/23 09:21 Urine Blood Negative (Negative) 01/30/23 09:21 Urine Nitrite Negative (Negative) 01/30/23 09:21 Urine Bilirubin Negative (Negative) 01/30/23 09:21 Urine Urobilinogen Negative (Negative) 01/30/23 09:21 Ur Leukocyte Esterase Negative (Negative) 01/30/23 09:21 Pleural pH 7.61 (7.3-7.4) H 01/30/23 Unknown Pleural LDH 138 U/L 01/30/23 Unknown Pleural Glucose 259 mg/dl 01/30/23 Unknown Nasal Screen MRSA (PCR) Negative (Negative) 01/30/23 14:49 SARS-CoV-2, RNA, NAAT NEGATIVE (NEGATIVE) 01/30/23 08:39 Impressions Chest CTA 01/30/23 13:02 CT ANGIOGRAPHY OF THE CHEST, PULMONARY EMBOLUS PROTOCOL CLINICAL HISTORY: Dyspnea. Lung cancer. COMPARISON STUDY: Chest CT January 18, 2023 and chest radiograph performed earlier today. PET/CT December 11, 2022. TECHNIQUE: Following IV administration of 120 mL of Optiray, helical axial images of the chest were obtained utilizing the pulmonary embolus protocol. Maximal intensity projections and sagittal and coronal reformats were viewed on an independent 3D workstation. IV contrast was administered without complication. Automated exposure control was utilized for the study. A dose lowering technique was utilized adhering to the principles of ALARA. CT DOSE: 867.49 mGy.cm FINDINGS: No pulmonary emboli are identified. Cardiomegaly is noted. There is no pericardial effusion. Mildly enlarged mediastinal and bilateral hilar lymph nodes are similar to prior CT. Mildly enlarged gastrohepatic ligament lymph nodes are also similar to CT of January 18, 2023. Index node measures 1.6 x 1.3 cm. There is no pneumothorax. A small to moderate right pleural effusion is similar to prior CT. Extensive right middle lobe and lower lobe airspace opacity is also similar to prior exam. Areas of decreased enhancement are again noted. No rim- enhancing fluid collection is present. The known right lower lobe lesion is obscured on this exam. Interlobular septal thickening is present. A 7 mm lingular nodule is unchanged from earlier exams. This is likely benign. Scattered small sclerotic metastases and numerous hepatic metastases are again visualized. The appearance of the chest has not significantly changed since prior chest CT. IMPRESSION: 1. No pulmonary emboli identified. 2. Small to moderate right pleural effusion, similar to prior CT. Extensive right middle lobe and right lower lobe consolidation which is also similar to prior exam. This could reflect pneumonia or radiation pneumonitis. 3. Cardiomegaly with mild interstitial pulmonary edema. 4. Redemonstration of jacquelyn, skeletal and hepatic metastases. ACT 112: Negative or not required by law. Electronically signed by: Nehemias Holt M.D. 01/30/2023 2:16 PM Chest X-Ray 02/03/23 07:00 XR chest 1V portable CLINICAL HISTORY: follow up ptx and chest tube COMPARISON STUDY: Chest CT January 30, 2023. Chest radiograph February 02, 2023. FINDINGS: The right chest tube has been removed. There is no pneumothorax. Right basilar opacity and a small right pleural effusion are similar to prior exam. Cardiomegaly is unchanged. IMPRESSION: 1. Interval removal of the right chest tube. No pneumothorax. No change in right basilar opacity with a small right pleural effusion. 2. Cardiomegaly. ACT 112: Negative or not required by law. Electronically signed by: Nehemias Holt M.D. 02/03/2023 6:57 AM (8) CHF (congestive heart failure) Heart failure chronicity: acute on chronic Heart failure type: unspecified Qualified Code(s): I50.9 - Heart failure, unspecified
[2023-02-03] MEDS: FUROSEMIDE 40 MG/4 ML VIAL IV SCH (17:40)
[2023-02-03] MEDS: PRAVASTATIN SOD 40 MG TAB PO SCH (20:15)
[2023-02-04] MEDS: LEVOTHYROXINE SODIUM 150 MCG TABLET PO SCH (05:31)
[2023-02-04 06:40] LABS: Basophils # (auto) 0.05 K/uL (0-0.2); Basophils % (auto) 0.4 %; Eosinophils # (auto) 0.43 K/uL (0-0.50); Eosinophils % (auto) 3.6 %; Hematocrit (blood only) 35.5 % (37.0-47.0); Hemoglobin 10.9 g/dl (12.0-16.0); Immature Granulocytes # (auto) 0.29 K/uL (0.01-0.20); Immature Granulocytes % (auto) 2.4 %; Lymphocytes % (auto) 9.1 %; Mean Corpuscular Hemoglobin 29.1 pg (25.0-34.0); Mean Corpuscular Hgb Conc 30.7 g/dL (32.0-36.0); Mean Corpuscular Volume 94.7 fL (80.0-100.0); Mean Platelet Volume 10.4 fL (9.4-12.4); Monocytes # (auto) 0.76 K/uL (0.11-0.59); Monocytes % (auto) 6.3 %; Neutrophils # (auto) 9.44 K/uL (1.40-6.50); Neutrophils % (auto) 78.2 %; Platelet Count 272 K/uL (130-400); RDW Coefficient of Variation 14.6 % (11.5-14.5); Red Blood Count 3.75 M/uL (4.20-5.40); White Blood Count 12.07 K/ul (4.8-10.8)
[2023-02-04 07:01] LABS: BUN Creatinine Ratio 31.3 (10-20); Calcium 9.2 mg/dl (8.6-10.3); Creatinine Clr Calc Pharmacy 121.7 ml/min; Est GFR (African American) 118.5 ml/min; Est GFR (Non-African American) 102.2 ml/min; Potassium 4.1 mmol/L (3.5-5.1)
[2023-02-04] MEDS: SODIUM CHLOR 7% 4 ML NEB NEB SCH ×2 (07:02→19:12)
[2023-02-04] MEDS: ALBUTEROL 0.083% NEBU SOLN 3 ML VIAL NEB SCH ×4 (07:02→19:12)
--- NOTE | 2023-02-04 08:25 | Pulmonology Progress Note ---
Date of Service February 04, 2023 Assessment & Plan (1) COPD (chronic obstructive pulmonary disease): COPD type: unspecified COPD Qualified Code(s): J44.9 - Chronic obstructive pulmonary disease, unspecified (2) Pleural effusion on right: (3) Acute hypoxemic respiratory failure: (4) Right lower lobe pneumonia: (5) Pleural effusion, right: Plan Impression: 67-year-old female with overlap syndrome (obstructive lung disease/sleep disordered breathing) on CPAP as well as metastatic adenocarcinoma (Mets to bone and liver). She has not yet been initiated on chemotherapy or immunotherapy. She was admitted 01/30/2023 with hypoxemic respiratory failure. She was diuresed placed on BiPAP and had a pigtail catheter placed. Pleural fluid is positive for adenocarcinoma. No significant reaccumulation on follow- up chest x-ray Recommendations: 1. Sleep disordered breathing: Continue nightly CPAP. She can follow-up with the [facility] outpatient sleep physicians with whom she is established. 2. Hypoxemic respiratory failure: Diastolic dysfunction questionable pneumonia. Currently day #5 azithromycin and cefepime. Cultures are negative. Can discontinue antibiotics at this point time. 3. Morbid obesity: Weight loss is imperative. 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 4. COPD: Patient was on Symbicort Spiriva and as needed albuterol in the outpatient setting. Continue for now. She is not bronchospastic and I do not think she would benefit from additional steroids at this point time. 5. Metastatic adenocarcinoma of the lung with malignant pleural effusion: No significant reaccumulation on follow-up chest x-ray. Continue to follow. If fluid reaccumulates, consideration for Pleurx catheter as an outpatient might be appropriate. She needs to follow-up in the outpatient setting with medical oncology to initiate appropriate antineoplastic therapy. Average life expectancy with malignant pleural effusion off therapy is typically less than 4 to 6 months. We will check chest x-ray in a.m. 6. Hypercarbic respiratory failure: The patient's pH is controlled currently. Would not try and normalize her CO2 levels. I think at this point in time compliance with BiPAP and oxygen as per her prior sleep study and clinical follow-up with her outpatient pulmonary group at [facility] and consideration for repeat ABG in 4 to 6 weeks would be appropriate. 7. The patient's consolidation the right lower lobe has been present and persistent. Unclear etiology at this point in time. Would not recommend bronchoscopy or biopsy at this point time as the patient is already been proven to have metastatic adenocarcinoma. Would initiate appropriate therapy and continue follow-up imaging. Patient appears to be at her baseline oxygen requirement. If she is ambulatory and is at her baseline oxygen requirement she can likely be dismissed from the hospital Admission and Anticipated Discharge Date Admission Date: January 30, 2023 Subjective Patient seen and examined. EMR reviewed. She is on 3 L nasal cannula. She is sitting up at the bedside. She states she does desaturate slightly when she gets up and moves around. She denies fevers chills or night sweats. No cough o r sputum production. She would like a regular diet. Review of Systems Review of Systems: All systems reviewed & are unremarkable except as noted in Subjective Physical Exam Constitutional: WD/WN, vitals as above + morbidly obese Neck: trachea midline, no thyromegaly Respiratory: no respiratory distress, no labored breathing and not tachypneic Auscultation: + diminished lung sounds; no crackles and no wheezes Cardiovascular: RRR, no murmur, no edema Gastrointestinal (Abdomen): normal bowel sounds, soft, nontender, no hepatosplenomegaly Musculoskeletal: Extremities: extremities normal to inspection Skin: no rashes, warm and dry Lymphatic: no cervical lymphadenopathy Results & Data Results & Data Vital Signs (Past 12 Hours) Vital Signs Temp Pulse Pulse Resp BP Pulse Ox O2 Del Method 02/04/23 08:07 36.5 C 60 20 103/66 90 Nasal Cannula 02/04/23 07:02 59 L 16 89 L CPAP 02/04/23 03:52 36.5 C 63 16 101/62 92 CPAP 02/03/23 23:34 36.9 C 62 20 103/65 97 CPAP 02/03/23 23:34 68 02/03/23 20:45 Nasal Cannula O2 Flow Rate 02/04/23 08:07 4 02/04/23 07:02 5 02/04/23 03:52 4 02/03/23 23:34 4 02/03/23 23:34 02/03/23 20:45 4 Diagnostic Findings Pleural fluid positive for metastatic adenocarcinoma of the lung primary Critical Care Results & Data Vital Signs (Past 12 Hours) Vital Signs Temp Pulse Pulse Resp BP Pulse Ox O2 Del Method 02/04/23 08:07 36.5 C 60 20 103/66 90 Nasal Cannula 02/04/23 07:02 59 L 16 89 L CPAP 02/04/23 03:52 36.5 C 63 16 101/62 92 CPAP 02/03/23 23:34 36.9 C 62 20 103/65 97 CPAP 02/03/23 23:34 68 02/03/23 20:45 Nasal Cannula O2 Flow Rate 02/04/23 08:07 4 02/04/23 07:02 5 02/04/23 03:52 4 02/03/23 23:34 4 02/03/23 23:34 02/03/23 20:45 4 Lab & Micro Results (Past 24 Hours) RBC 3.75 M/uL (4.20-5.40) L 02/04/23 WBC 12.07 K/ul (4.8-10.8) H 02/04/23 Hgb 10.9 g/dl (12.0-16.0) L 02/04/23 Hct 35.5 % (37.0-47.0) L 02/04/23 MCV 94.7 fL (80.0-100.0) 02/04/23 MCH 29.1 pg (25.0-34.0) 02/04/23 MCHC 30.7 g/dL (32.0-36.0) L 02/04/23 RDW Standard Deviation 51.0 fL (36.4-46.3) H 02/04/23 RDW Coefficient of Variation 14.6 % (11.5-14.5) H 02/04/23 Plt Count 272 K/uL (130-400) 02/04/23 MPV 10.4 fL (9.4-12.4) 02/04/23 Neutrophils (%) (Auto) 78.2 % 02/04/23 Lymphocytes (%) (Auto) 9.1 % 02/04/23 Monocytes # (Auto) 0.76 K/uL (0.11-0.59) H 02/04/23 Eosinophils # (Auto) 0.43 K/uL (0-0.50) 02/04/23 Immature Granulocyte % (Auto) 2.4 % 02/04/23 Neutrophils # (Auto) 9.44 K/uL (1.40-6.50) H 02/04/23 Lymphocytes # (Auto) 1.10 K/uL (1.2-3.4) L 02/04/23 Monocytes # (Auto) 0.76 K/uL (0.11-0.59) H 02/04/23 Eosinophils # (Auto) 0.43 K/uL (0-0.50) 02/04/23 Basophils # (Auto) 0.05 K/uL (0-0.2) 02/04/23 Immature Granulocyte # (Auto) 0.29 K/uL (0.01-0.20) H 02/04 Na 136 mmol/L (136-145) 02/04/23 K 4.1 mmol/L (3.5-5.1) 02/04/23 Cl 98 mmol/L (98-107) 02/04/23 CO2 29 mmol/L (21-32) 02/04/23 Anion Gap 9 (3-11) 02/04/23 BUN 15 mg/dl (6-23) 02/04/23 Creatinine 0.48 mg/dl (0.6-1.2) L 02/04/23 Estimated GFR ( Amer) 118.5 ml/min 02/04/23 Estimated GFR (Non-Af Amer) 102.2 ml/min 02/04/23 BUN/Creatinine Ratio 31.3 (10-20) H 02/04/23 Glu 128 mg/dl (70-99(Fasting)) H 02/04/23 Ca 9.2 mg/dl (8.6-10.3) 02/04/23 Calcium Level 9.2 mg/dl (8.6-10.3) 02/04/23 05:34 I & O Totals 24 Hours 02/03/23 02/04/23 02/05/23 06:59 06:59 06:59 Intake Total 1055 / 1055 1475 / 1475 Output Total 301 / 301 Balance 754 / 754 1475 / 1475 Cumulative 01/30/23 08:01 thru 02/04/23 05:31 Intake Total 4125 Output Total 4081 Balance 44 RT Ventilator Mngmt (Last Documented) Ventilator Ordered Settings Respiratory Rate 20 02/04/23 08:07 Fraction of Inspired Oxygen 7 02/01/23 19:53 Ventilator - PT Measurements Respiratory Rate 20 PG Care Time/CCT Total # of Minutes Spent Total Time Spent with Patient: Total time spent is greater than 50% in coordination of care (as documented) at patient's floor/unit and/or counseling patient: Coding Level of Care Code 14428 SUB INP/OBS CARE 3/50MIN Diagnoses COPD (chronic obstructive pulmonary disease) J44.9 COPD type: unspecified COPD Pleural effusion on right J90 Acute hypoxemic respiratory failure J96.01 Right lower lobe pneumonia J18.9
[2023-02-04] MEDS: HEPARIN SOD 5,000 UNIT/0.5 ML VIAL SQ SCH ×2 (08:55→21:19)
[2023-02-04] MEDS: amLODIPine BESYLATE 5 MG TAB PO SCH (09:00)
[2023-02-04] MEDS: INSULIN ASPART PER UNIT CHARGE SC SCH ×4 (09:00→21:19)
[2023-02-04] MEDS: FLUTICASONE/VILANTEROL 200/25MCG 14 PUFFS/INHALER INH SCH (09:00)
[2023-02-04] MEDS: ASPIRIN 81 MG ECTAB PO SCH (09:00)
[2023-02-04] MEDS: METOPROLOL SUCC 25MG EXT REL TAB PO SCH ×2 (09:00→21:25)
[2023-02-04] MEDS: POTASSIUM CHLORIDE 10 MEQ TABCR PO SCH (09:00)
--- NOTE | 2023-02-04 16:17 | Hospitalist Progress Note ---
Date of Service February 04, 2023 Assessment & Plan (1) Acute and chronic respiratory failure with hypoxia: Plan: 67-year-old female presents with shortness of breath. New diagnosis of metastatic adenocarcinoma of the lung with mets mets to bone and liver early January 2023. Symptoms appear to be exacerbated by acute on chronic CHF. Worsening right pleural effusion to be evaluated by pulmonary for thoracentesis or Pleurx cath placement. Diuresis with Lasix, BiPAP as needed antibiotics and nebulizers. Multifactorial in the setting of right-sided pneumonia with parapneumonic effusion, due to on chronic diastolic failure and m lung cancer Status post right-sided chest tube placement and removal on 02/02 Presented to the ED with increasing shortness of breath. CTA chest on admission reviewedno PE. Cardiomegaly and mild pulmonary edema. Also right middle lobe and right lower lobe consolidation present. Was admitted to ICU initially due to need for high flow nasal cannula and BiPAP. Underwent placement of chest tube with removal of 900 cc of pleural effusion Pleural effusion analysis reviewed; exudative. Pulmonology recommendations reviewed; recommend azithromycin and cefuroxime orally for 5 days Started on IV diuresis for now. Continue on IV Lasix 40 mg twice daily. Strict input and output Continue to wean down oxygen as tolerated. (2) Metastatic lung cancer (metastasis from lung to other site): Plan: Saw Dr. Kirby on 01/22; Recommended Keytruda and Radiation to left arm. Plan to start treatment in 3 weeks or so; awaiting further liver biopsy results (3) Pleural effusion, right: Plan: As above (4) COPD (chronic obstructive pulmonary disease): Plan: COPD group D- not in exacerbation. Continue ICS/LABA/LAMA inhaler. No indication for steroids currently. Pulmonary hypertension-likely secondary chronic lung disease. Per pulmonology, she is not a candidate for right heart cath at this time and they were considering trial of vasodilator such as sildenafil. Optimizing volume status through diuresis. Still requiring 5 L of oxygen through high flow nasal cannula to maintain saturations (5) BHAVIK on CPAP: (6) CAD (coronary artery disease): Plan: No acute cardiac symptoms (7) Carotid stenosis: (8) CHF (congestive heart failure): Plan: Acute on chronic diastolic CHF Echo 10/2022 with EF 55 to 60%, grade 1 diastolic dysfunction, systolic pulm artery pressure 51 mmHg Continue on Lasix 40 mg IV twice daily. (9) HTN (hypertension): (10) HLD (hyperlipidemia): (11) Diabetes mellitus, type II: Plan: Diabetes mellitus type 2: Hold metformin, continue SSI, diabetic diet (12) Hypothyroid: Plan: Continue with the replacement Other significant medical condition as follows: CAD: Carotid stenosis: NSTEMI 2008; takes baby aspirin continue HTN: Continue amlodipine HLD: On Zet[place], [place] Hypothyroidism: Continue Synthroid Goals of Care conversation;counseling: Lengthy conversation held with patient and her daughter at bedside on admission. Patient is at the beginning of her oncology journey with her initial appointment occurring last week. Hematology oncology did present the possibil ity of having palliative medicine presents and that was readdressed today in order to develop rapport along with providing symptom management and goals of care throughout her chemotherapy and radiation journey. Patient expressed that at this time she is aware of that service but would like to hold off on official consultation at this time until she is able to begin treatment and see how it affects her daily life. To note patient does live alone at home however does have her daughter providing support. Plan CODE STATUS: Full code VTE prophylaxis: Subcu heparin . Time spent evaluating patient, direct bedside care, chart review, placing orders, interpretation of diagnostic studies, discussion with consultants, patient, and family members, as well as other required patient management activities is 60 minutes. Please note the above document was generated using voice recognition software. It may contain grammatical, syntax or spelling errors. Any formal questions or concerns about the content, text or information contained within the body of this dictation should be directly addressed to the provider for clarification Admission and Anticipated Discharge Date Admission Date: January 30, 2023 Subjective Patient seen and examined at bedside. She reports that she is feeling little better compared to yesterday. Oxygen requirement improving compared to before. She is using CPAP as needed. Review of Systems Review of Systems: All systems reviewed & are unremarkable except as noted in Subjective Physical Exam Physical Exam: Constitutional: WD/WN, vitals as above, NAD, sitting up in bed, pleasant, conversing easily Respiratory: Decreased breath sound at right lower base. Bilateral crackles heard. Cardiovascular: RRR, no murmur, no edema Vessels: no JVD or carotid bruit Chest: normal inspection of chest Abdomen: normal bowel sounds, soft, nontender, no hepatosplenomegaly Musculoskeletal: no cyanosis or clubbing, extremities motor strength 5/5 Skin: no rashes, warm and dry normal turgor Neurologic: PERRL, EOMI, accommodation nl, no face palsy, no dysarthria CN's II- XI intact bilaterally and moves all extremities Psychiatric: A+Ox3, euthymic affect Lymphatic: no cervical or axillary lymphadenopathy : deferred Results & Data Results & Data Vital Signs (Past 12 Hours) Vital Signs Temp Pulse Resp BP Pulse Ox O2 Del Method O2 Flow Rate 02/04/23 15:18 65 20 90 CPAP 6 02/04/23 13:19 Nasal Cannula 3 02/04/23 12:19 36.7 C 63 20 127/70 90 Nasal Cannula 4 02/04/23 11:08 64 18 90 CPAP 6 02/04/23 08:07 36.5 C 60 20 103/66 90 Nasal Cannula 4 02/04/23 07:02 59 L 16 89 L CPAP 5 Laboratory Results Laboratory Results WBC 12.07 K/ul (4.8-10.8) H 02/04/23 05:34 RBC 3.75 M/uL (4.20-5.40) L 02/04/23 05:34 Hgb 10.9 g/dl (12.0-16.0) L 02/04/23 05:34 Hct 35.5 % (37.0-47.0) L 02/04/23 05:34 MCV 94.7 fL (80.0-100.0) 02/04/23 05:34 MCH 29.1 pg (25.0-34.0) 02/04/23 05:34 MCHC 30.7 g/dL (32.0-36.0) L 02/04/23 05:34 RDW Std Deviation 51.0 fL (36.4-46.3) H 02/04/23 05:34 RDW Coeff of Naa 14.6 % (11.5-14.5) H 02/04/23 05:34 Plt Count 272 K/uL (130-400) 02/04/23 05:34 MPV 10.4 fL (9.4-12.4) 02/04/23 05:34 Immature Gran % (Auto) 2.4 % 02/04/23 05:34 Neut % (Auto) 78.2 % 02/04/23 05:34 Lymph % (Auto) 9.1 % 02/04/23 05:34 [place] % (Auto) 6.3 % 02/04/23 05:34 Eos % (Auto) 3.6 % 02/04/23 05:34 Baso % (Auto) 0.4 % 02/04/23 05:34 Neut # (Auto) 9.44 K/uL (1.40-6.50) H 02/04/23 05:34 Lymph # (Auto) 1.10 K/uL (1.2-3.4) L 02/04/23 05:34 [place] # (Auto) 0.76 K/uL (0.11-0.59) H 02/04/23 05:34 Eos # (Auto) 0.43 K/uL (0-0.50) 02/04/23 05:34 Baso # (Auto) 0.05 K/uL (0-0.2) 02/04/23 05:34 Immature Gran # (Auto) 0.29 K/uL (0.01-0.20) H 02/04/23 05:34 PT 10.9 Seconds (9.0-12.0) 01/30/23 08:39 INR 1.0 (0.9-1.1) 01/30/23 08:39 APTT 27.6 Seconds (21.0-31.0) 01/30/23 08:39 PTT Ratio 1.0 01/30/23 08:39 VBG pH 7.42 (7.36-7.41) H 01/31/23 09:14 VBG pCO2 56 mmHg (38-50) H 01/31/23 09:14 VBG pO2 60 mmHg 01/31/23 09:14 VBG HCO3 36 mmol/L 01/31/23 09:14 VBG O2 Saturation 89.5 % 01/31/23 09:14 VBG Base Excess 9.7 mEq/L 01/31/23 09:14 Sodium 136 mmol/L (136-145) 02/04/23 05:34 Potassium 4.1 mmol/L (3.5-5.1) 02/04/23 05:34 Chloride 98 mmol/L (98-107) 02/04/23 05:34 Carbon Dioxide 29 mmol/L (21-32) 02/04/23 05:34 Anion Gap 9 (3-11) 02/04/23 05:34 BUN 15 mg/dl (6-23) 02/04/23 05:34 Creatinine 0.48 mg/dl (0.6-1.2) L 02/04/23 05:34 Est Cr Clr Drug Dosing 121.7 ml/min 02/04/23 05:34 Est GFR ( Amer) 118.5 ml/min 02/04/23 05:34 Est GFR (Non-Af Amer) 102.2 ml/min 02/04/23 05:34 BUN/Creatinine Ratio 31.3 (10-20) H 02/04/23 05:34 Glucose 128 mg/dl (70-99(Fasting)) H 02/04/23 05:34 POC Glucose 138 mg/dl (70-99) H 02/04/23 12:08 Estimat Average Glucose 148 mg/dl 01/31/23 05:38 Hemoglobin A1c 6.8 % (4.5-5.6) H 01/31/23 05:38 Calcium 9.2 mg/dl (8.6-10.3) 02/04/23 05:34 Phosphorus 3.4 mg/dl (2.5-4.9) 02/02/23 04:17 Magnesium 2.0 mg/dl (1.7-2.4) 02/01/23 05:22 Total Bilirubin 0.3 mg/dl (0.2-1.0) 02/03/23 06:16 AST 20 U/L (13-39) 02/03/23 06:16 ALT 26 U/L (7-52) 02/03/23 06:16 Alkaline Phosphatase 92 U/L (34-104) 02/03/23 06:16 Troponin I High Sens 10.2 pg/ml (0-14) 01/30/23 08:39 B-Natriuretic Peptide 70 pg/ml (0-100) 01/30/23 08:39 Total Protein 6.5 gm/dl (6.0-8.3) 02/03/23 06:16 Albumin 3.6 gm/dl (3.4-5.0) 02/03/23 06:16 Globulin 2.9 gm/dl (2.5-4.0) 02/03/23 06:16 Albumin/Globulin Ratio 1.2 (0.9-2) 02/03/23 06:16 Procalcitonin 0.15 ng/ml (0-0.5) 01/30/23 08:39 Urine Color Yellow 01/30/23 09:21 Urine Appearance Clear (Clear) 01/30/23 09:21 Urine pH 5.5 (4.5-7.5) 01/30/23 09:21 Ur Specific [place] 1.006 (1.000-1.030) 01/30/23 09:21 Urine Protein Negative (Negative) 01/30/23 09:21 Urine Glucose (UA) Negative (Negative) 01/30/23 09:21 Urine Ketones Negative (Negative) 01/30/23 09:21 Urine Blood Negative (Negative) 01/30/23 09:21 Urine Nitrite Negative (Negative) 01/30/23 09:21 Urine Bilirubin Negative (Negative) 01/30/23 09:21 Urine Urobilinogen Negative (Negative) 01/30/23 09:21 Ur Leukocyte Esterase Negative (Negative) 01/30/23 09:21 Pleural pH 7.61 (7.3-7.4) H 01/30/23 Unknown Pleural LDH 138 U/L 01/30/23 Unknown Pleural Glucose 259 mg/dl 01/30/23 Unknown Nasal Screen MRSA (PCR) Negative (Negative) 01/30/23 14:49 SARS-CoV-2, RNA, NAAT NEGATIVE (NEGATIVE) 01/30/23 08:39 Impressions Chest CTA 01/30/23 13:02 CT ANGIOGRAPHY OF THE CHEST, PULMONARY EMBOLUS PROTOCOL CLINICAL HISTORY: Dyspnea. Lung cancer. COMPARISON STUDY: Chest CT January 18, 2023 and chest radiograph performed earlier today. PET/CT December 11, 2022. TECHNIQUE: Following IV administration of 120 mL of Optiray, helical axial images of the chest were obtained utilizing the pulmonary embolus protocol. Maximal intensity projections and sagittal and coronal reformats were viewed on an independent 3D workstation. IV contrast was administered without complication. Automated exposure control was utilized for the study. A dose lowering technique was utilized adhering to the principles of ALARA. CT DOSE: 867.49 mGy.cm FINDINGS: No pulmonary emboli are identified. Cardiomegaly is noted. There is no pericardial effusion. Mildly enlarged mediastinal and bilateral hilar lymph nodes are similar to prior CT. Mildly enlarged gastrohepatic ligament lymph nodes are also similar to CT of January 18, 2023. Index node measures 1.6 x 1.3 cm. There is no pneumothorax. A small to moderate right pleural effusion is similar to prior CT. Extensive right middle lobe and lower lobe airspace opacity is also similar to prior exam. Areas of decreased enhancement are again noted. No rim- enhancing fluid collection is present. The known right lower lobe lesion is obscured on this exam. Interlobular septal thickening is present. A 7 mm lingular nodule is unchanged from earlier exams. This is likely benign. Scattered small sclerotic metastases and numerous hepatic metastases are again visualized. The appearance of the chest has not significantly changed since prior chest CT. IMPRESSION: 1. No pulmonary emboli identified. 2. Small to moderate right pleural effusion, similar to prior CT. Extensive right middle lobe and right lower lobe consolidation which is also similar to prior exam. This could reflect pneumonia or radiation pneumonitis. 3. Cardiomegaly with mild interstitial pulmonary edema. 4. Redemonstration of jacquelyn, skeletal and hepatic metastases. ACT 112: Negative or not required by law. Electronically signed by: Nehemias Holt M.D. 01/30/2023 2:16 PM Chest X-Ray 02/03/23 07:00 XR chest 1V portable CLINICAL HISTORY: follow up ptx and chest tube COMPARISON STUDY: Chest CT January 30, 2023. Chest radiograph February 02, 2023. FINDINGS: The right chest tube has been removed. There is no pneumothorax. Right basilar opacity and a small right pleural effusion are similar to prior exam. Cardiomegaly is unchanged. IMPRESSION: 1. Interval removal of the right chest tube. No pneumothorax. No change in right basilar opacity with a small right pleural effusion. 2. Cardiomegaly. ACT 112: Negative or not required by law. Electronically signed by: Nehemias Holt M.D. 02/03/2023 6:57 AM (8) CHF (congestive heart failure) Heart failure chronicity: acute on chronic Heart failure type: unspecified Qualified Code(s): I50.9 - Heart failure, unspecified
[2023-02-04] MEDS: FUROSEMIDE 40 MG/4 ML VIAL IV SCH (17:49)
[2023-02-04] MEDS: PRAVASTATIN SOD 40 MG TAB PO SCH (21:25)
[2023-02-04] MEDS: ACETAMINOPHEN 325 MG TAB PO PRN (21:28)
[2023-02-05] MEDS: LEVOTHYROXINE SODIUM 150 MCG TABLET PO SCH (05:43)
[2023-02-05 06:25] LABS: Basophils # (auto) 0.06 K/uL (0-0.2); Basophils % (auto) 0.5 %; Eosinophils # (auto) 0.44 K/uL (0-0.50); Eosinophils % (auto) 3.9 %; Hematocrit (blood only) 34.4 % (37.0-47.0); Hemoglobin 10.7 g/dl (12.0-16.0); Immature Granulocytes # (auto) 0.09 K/uL (0.01-0.20); Immature Granulocytes % (auto) 0.8 %; Lymphocytes # (auto) 1.16 K/uL (1.2-3.4); Lymphocytes % (auto) 10.3 %; Mean Corpuscular Hemoglobin 29.1 pg (25.0-34.0); Mean Corpuscular Hgb Conc 31.1 g/dL (32.0-36.0); Mean Corpuscular Volume 93.5 fL (80.0-100.0); Mean Platelet Volume 10.1 fL (9.4-12.4); Monocytes # (auto) 0.75 K/uL (0.11-0.59); Monocytes % (auto) 6.6 %; Neutrophils # (auto) 8.78 K/uL (1.40-6.50); Neutrophils % (auto) 77.9 %; Platelet Count 264 K/uL (130-400); RDW Coefficient of Variation 14.6 % (11.5-14.5); RDW Standard Deviation 49.7 fL (36.4-46.3); Red Blood Count 3.68 M/uL (4.20-5.40); White Blood Count 11.28 K/ul (4.8-10.8)
[2023-02-05 06:36] LABS: Calcium 9.2 mg/dl (8.6-10.3); Est GFR (African American) 116.9 ml/min; Est GFR (Non-African American) 100.9 ml/min; Potassium 4.1 mmol/L (3.5-5.1)
[2023-02-05] MEDS: ALBUTEROL 0.083% NEBU SOLN 3 ML VIAL NEB SCH ×4 (07:47→19:18)
[2023-02-05] MEDS: SODIUM CHLOR 7% 4 ML NEB NEB SCH ×2 (07:47→19:18)
[2023-02-05] MEDS: METOPROLOL SUCC 25MG EXT REL TAB PO SCH ×2 (08:19→20:20)
[2023-02-05] MEDS: ASPIRIN 81 MG ECTAB PO SCH (08:19)
[2023-02-05] MEDS: FLUTICASONE/VILANTEROL 200/25MCG 14 PUFFS/INHALER INH SCH (08:19)
[2023-02-05] MEDS: amLODIPine BESYLATE 5 MG TAB PO SCH (08:20)
[2023-02-05] MEDS: HEPARIN SOD 5,000 UNIT/0.5 ML VIAL SQ SCH ×2 (08:21→20:36)
[2023-02-05] MEDS: INSULIN ASPART PER UNIT CHARGE SC SCH ×4 (08:22→21:53)
[2023-02-05] MEDS: POTASSIUM CHLORIDE 10 MEQ TABCR PO SCH (08:28)
[2023-02-05] MEDS: ACETAMINOPHEN 325 MG TAB PO PRN ×4 (08:28→22:22)
--- NOTE | 2023-02-05 08:30 | Pulmonology Progress Note ---
Date of Service February 05, 2023 Assessment & Plan (1) COPD (chronic obstructive pulmonary disease): COPD type: unspecified COPD Qualified Code(s): J44.9 - Chronic obstructive pulmonary disease, unspecified (2) Pleural effusion on right: (3) Acute hypoxemic respiratory failure: (4) Right lower lobe pneumonia: Plan Impression: 67-year-old female with overlap syndrome (obstructive lung disease /sleep disordered breathing) on CPAP as well as metastatic adenocarcinoma (Mets to bone and liver). She has not yet been initiated on chemotherapy or immunotherapy. She was admitted 01/30/2023 with hypoxemic respiratory failure. She was diuresed placed on BiPAP and had a pigtail catheter placed. Pleural fluid is positive for adenocarcinoma. No significant reaccumulation on follow- up chest x-ray. Recommendations: 1. Sleep disordered breathing: Continue nightly CPAP. She can follow-up with the [facility] outpatient sleep physicians with whom she is established. 2. Hypoxemic respiratory failure: Diastolic dysfunction questionable pneumonia. Currently day #5 azithromycin and cefepime. Cultures are negative. Can discontinue antibiotics at this point time. 3. Morbid obesity: Weight loss is imperative. Consider referral to bariatric medicine and outpatient referral to excellence specialist to assist with weight loss. 4. COPD: Patient was on Symbicort Spiriva and as needed albuterol in the outpatient setting. Continue for now. She is not bronchospastic and I do not think she would benefit from additional steroids at this point time. 5. Metastatic adenocarcinoma of the lung with malignant pleural effusion: No significant reaccumulation on follow-up chest x-ray. Continue to follow. If fluid reaccumulates, consideration for Pleurx catheter as an outpatient might be appropriate. She needs to follow-up in the outpatient setting with medical oncology to initiate appropriate antineoplastic therapy. Average life expectancy with malignant pleural effusion off therapy is typically less than 4 to 6 months. We will check chest x-ray in a.m. 6. Hypercarbic respiratory failure: The patient's pH is controlled currently. Would not try and normalize her CO2 levels. I think at this point in time compliance with BiPAP and oxygen as per her prior sleep study and clinical follow-up with her outpatient pulmonary group at [facility] and consideration for repeat ABG in 4 to 6 weeks would be appropriate. 7. The patient's consolidation the right lower lobe has been present and persistent. Unclear etiology at this point in time. Would not recommend bronchoscopy or biopsy at this point time as the patient is already been proven to have metastatic adenocarcinoma. Would initiate appropriate therapy and continue follow-up imaging. Patient appears to be at her baseline oxygen requirement. If she is ambulatory and is at her baseline oxygen requirement she can likely be dismissed from the hospital. Pulmonary medicine will sign off at this time. Admission and Anticipated Discharge Date Admission Date: January 30, 2023 Subjective Patient seen and evaluated at bedside. She reports that her breathing has been "fine" and back near her baseline. She offers no new complaints and is anxious to be discharged. Review of Systems Review of Systems: A complete 6 point review of systems was reviewed with the patient with pertinent positives and negatives as per history of present illness. All else were negative. Physical Exam Physical Exam: VITAL SIGNS - Vital signs and nursing notes were reviewed. GENERAL - 68-year-old female appearing her stated age who is in no acute distress. Communicates well with provider and answers questions appropriately. LUNGS - Auscultation reveals Diminished breath sounds at the bilateral bases. CARDIAC - RRR with S1/S2. No murmur, rubs, or gallops appreciated. EXTREMITIES - No pretibial edema present. +3/5 radial palpated throughout. PSYCH - A&Ox3 and cooperates fully with examiner. Pt is very pleasant and interacts well with examiner. Results & Data Results & Data Vital Signs (Past 12 Hours) Vital Signs Temp Pulse Pulse Resp BP Pulse Ox O2 Del Method 02/05/23 07:47 75 20 95 Nasal Cannula 02/05/23 07:35 62 02/05/23 03:36 36.5 C 57 L 18 116/69 96 Nasal Cannula 02/04/23 23:00 61 02/04/23 23:33 36.5 C 64 18 104/65 92 Nasal Cannula O2 Flow Rate 02/05/23 07:47 5 02/05/23 07:35 02/05/23 03:36 4.5 02/04/23 23:00 02/04/23 23:33 4.0 PG Care Time/CCT Total # of Minutes Spent Total Time Spent with Patient: Total time spent is greater than 50% in coordination of care (as documented) at patient's floor/unit and/or counseling patient: Coding Level of Care Code 97579 SUB INP/OBS CARE 2/35MIN Diagnoses COPD (chronic obstructive pulmonary disease) J44.9 COPD type: unspecified COPD Pleural effusion on right J90 Acute hypoxemic respiratory failure J96.01 Right lower lobe pneumonia J18.9
[2023-02-05] MEDS ORDERED: FUROSEMIDE INJ 20 MG/2 ML VIAL IV ONE (12:46)
--- NOTE | 2023-02-05 12:52 | Hospitalist Progress Note ---
Date of Service February 05, 2023 Assessment & Plan (1) Acute and chronic respiratory failure with hypoxia: Plan: 67-year-old female presents with shortness of breath. New diagnosis of metastatic adenocarcinoma of the lung with mets mets to bone and liver early January 2023. Symptoms appear to be exacerbated by acute on chronic CHF. Worsening right pleural effusion to be evaluated by pulmonary for thoracentesis or Pleurx cath placement. Diuresis with Lasix, BiPAP as needed antibiotics and nebulizers. Multifactorial in the setting of right-sided pneumonia with parapneumonic effusion, due to on chronic diastolic failure and m lung cancer Status post right-sided chest tube placement and removal on 02/02 Presented to the ED with increasing shortness of breath. CTA chest on admission reviewedno PE. Cardiomegaly and mild pulmonary edema. Also right middle lobe and right lower lobe consolidation present. Was admitted to ICU initially due to need for high flow nasal cannula and BiPAP. Underwent placement of chest tube with removal of 900 cc of pleural effusion Pleural effusion analysis reviewed; exudative. Cytology showed metastatic adenocarcinoma of pulmonary origin. Pulmonology recommendations reviewed; recommend azithromycin and cefuroxime orally for 5 days Started on IV diuresis for now. Continue on IV Lasix 40 mg twice daily. We will add another dose of IV Lasix 20 mg today. Strict input and output Continue to wean down oxygen as tolerated. (2) Metastatic lung cancer (metastasis from lung to other site): Plan: Saw Dr. Kirby on 01/22; Recommended Keytruda and Radiation to left arm. Plan to start treatment in 3 weeks (3) Pleural effusion, right: Plan: As above (4) COPD (chronic obstructive pulmonary disease): Plan: COPD group D- not in exacerbation. Continue ICS/LABA/LAMA inhaler. No indication for steroids currently. Pulmonary hypertension-likely secondary chronic lung disease. Per pulmonology, she is not a candidate for right heart cath at this time and they were considering trial of vasodilator such as sildenafil. Optimizing volume status through diuresis. Still requiring 5 L of oxygen through high flow nasal cannula to maintain saturations (5) BHAVIK on CPAP: (6) CAD (coronary artery disease): Plan: No acute cardiac symptoms (7) Carotid stenosis: (8) CHF (congestive heart failure): Plan: Acute on chronic diastolic CHF Chest x-ray from February 05 reviewed; still shows vascular congestion. Echo 10/2022 with EF 55 to 60%, grade 1 diastolic dysfunction, systolic pulm artery pressure 51 mmHg Continue on Lasix 40 mg IV twice daily. Daily weights Strict input and output monitoring. (9) HTN (hypertension): (10) HLD (hyperlipidemia): (11) Diabetes mellitus, type II: Plan: Diabetes mellitus type 2: Hold metformin, continue SSI, diabetic diet (12) Hypothyroid: Plan: Continue with the replacement Other significant medical condition as follows: CAD: Carotid stenosis: NSTEMI 2008; takes baby aspirin continue HTN: Continue amlodipine HLD: On Zetia, [place] Hypothyroidism: Continue Synthroid Goals of Care conversation;counseling: Lengthy conversation held with patient and her daughter at bedside on admission. Patient is at the beginning of her oncology journey with her initial appointment occurring last week. Hematology oncology did present the po ssibility of having palliative medicine presents and that was readdressed today in order to develop rapport along with providing symptom management and goals of care throughout her chemotherapy and radiation journey. Patient expressed that at this time she is aware of that service but would like to hold off on official consultation at this time until she is able to begin treatment and see how it affects her daily life. To note patient does live alone at home however does have her daughter providing support. Plan CODE STATUS: Full code VTE prophylaxis: Subcu heparin . Dispopatient continues to be hospitalized due to acute hypoxic respiratory failure requiring increasing amount of supplemental oxygen. Requires IV diuretics and close monitoring. Plan is to discharge home when medically stable. Prescription for nebulizer machine given to case management. Time spent evaluating patient, direct bedside care, chart review, placing orders, interpretation of diagnostic studies, discussion with consultants, patient, and family members, as well as other required patient management activities is 60 minutes. Please note the above document was generated using voice recognition software. It may contain grammatical, syntax or spelling errors. Any formal questions or concerns about the content, text or information contained within the body of this dictation should be directly addressed to the provider for clarification Admission and Anticipated Discharge Date Admission Date: January 30, 2023 Subjective Patient seen and examined at bedside. Patient desaturates on ambulation to 70%; reports increased shortness of breath as well. She is saturating well at baseline oxygen at rest. Review of Systems Review of Systems: All systems reviewed & are unremarkable except as noted in Subjective Physical Exam Physical Exam: Constitutional: WD/WN, vitals as above, NAD, sitting up in bed, pleasant, conversing easily Respiratory: Decreased breath sound at right lower base. Bilateral crackles heard. Cardiovascular: RRR, no murmur, no edema Vessels: no JVD or carotid bruit Chest: normal inspection of chest Abdomen: normal bowel sounds, soft, nontender, no hepatosplenomegaly Musculoskeletal: no cyanosis or clubbing, extremities motor strength 5/5 Skin: no rashes, warm and dry normal turgor Neurologic: PERRL, EOMI, accommodation nl, no face palsy, no dysarthria CN's II- XI intact bilaterally and moves all extremities Psychiatric: A+Ox3, euthymic affect Lymphatic: no cervical or axillary lymphadenopathy : deferred Results & Data Results & Data Vital Signs (Past 12 Hours) Vital Signs Temp Pulse Pulse Resp BP Pulse Ox O2 Del Method 02/05/23 12:30 36.6 C 114 H 18 121/73 96 Nasal Cannula 02/05/23 11:24 64 18 96 Nasal Cannula 02/05/23 10:26 Nasal Cannula, CPAP 02/05/23 08:36 36.6 C 71 18 136/79 94 Nasal Cannula 02/05/23 07:47 75 20 95 Nasal Cannula 02/05/23 07:35 62 02/05/23 03:36 36.5 C 57 L 18 116/69 96 Nasal Cannula O2 Flow Rate 02/05/23 12:30 5 02/05/23 11:24 5 02/05/23 10:26 5 02/05/23 08:36 5 02/05/23 07:47 5 02/05/23 07:35 02/05/23 03:36 4.5 Laboratory Results Laboratory Results WBC 11.28 K/ul (4.8-10.8) H 02/05/23 05:44 RBC 3.68 M/uL (4.20-5.40) L 02/05/23 05:44 Hgb 10.7 g/dl (12.0-16.0) L 02/05/23 05:44 Hct 34.4 % (37.0-47.0) L 02/05/23 05:44 MCV 93.5 fL (80.0-100.0) 02/05/23 05:44 MCH 29.1 pg (25.0-34.0) 02/05/23 05:44 MCHC 31.1 g/dL (32.0-36.0) L 02/05/23 05:44 RDW Std Deviation 49.7 fL (36.4-46.3) H 02/05/23 05:44 RDW Coeff of Naa 14.6 % (11.5-14.5) H 02/05/23 05:44 Plt Count 264 K/uL (130-400) 02/05/23 05:44 MPV 10.1 fL (9.4-12.4) 02/05/23 05:44 Immature Gran % (Auto) 0.8 % 02/05/23 05:44 Neut % (Auto) 77.9 % 02/05/23 05:44 Lymph % (Auto) 10.3 % 02/05/23 05:44 Bates % (Auto) 6.6 % 02/05/23 05:44 Eos % (Auto) 3.9 % 02/05/23 05:44 Baso % (Auto) 0.5 % 02/05/23 05:44 Neut # (Auto) 8.78 K/uL (1.40-6.50) H 02/05/23 05:44 Lymph # (Auto) 1.16 K/uL (1.2-3.4) L 02/05/23 05:44 Bates # (Auto) 0.75 K/uL (0.11-0.59) H 02/05/23 05:44 Eos # (Auto) 0.44 K/uL (0-0.50) 02/05/23 05:44 Baso # (Auto) 0.06 K/uL (0-0.2) 02/05/23 05:44 Immature Gran # (Auto) 0.09 K/uL (0.01-0.20) 02/05/23 05:44 PT 10.9 Seconds (9.0-12.0) 01/30/23 08:39 INR 1.0 (0.9-1.1) 01/30/23 08:39 APTT 27.6 Seconds (21.0-31.0) 01/30/23 08:39 PTT Ratio 1.0 01/30/23 08:39 VBG pH 7.42 (7.36-7.41) H 01/31/23 09:14 VBG pCO2 56 mmHg (38-50) H 01/31/23 09:14 VBG pO2 60 mmHg 01/31/23 09:14 VBG HCO3 36 mmol/L 01/31/23 09:14 VBG O2 Saturation 89.5 % 01/31/23 09:14 VBG Base Excess 9.7 mEq/L 01/31/23 09:14 Sodium 136 mmol/L (136-145) 02/05/23 05:44 Potassium 4.1 mmol/L (3.5-5.1) 02/05/23 05:44 Chloride 98 mmol/L (98-107) 02/05/23 05:44 Carbon Dioxide 32 mmol/L (21-32) 02/05/23 05:44 Anion Gap 6 (3-11) 02/05/23 05:44 BUN 15 mg/dl (6-23) 02/05/23 05:44 Creatinine 0.50 mg/dl (0.6-1.2) L 02/05/23 05:44 Est Cr Clr Drug Dosing 118.0 ml/min 02/05/23 05:44 Est GFR ( Amer) 116.9 ml/min 02/05/23 05:44 Est GFR (Non-Af Amer) 100.9 ml/min 02/05/23 05:44 BUN/Creatinine Ratio 30.0 (10-20) H 02/05/23 05:44 Glucose 134 mg/dl (70-99(Fasting)) H 02/05/23 05:44 POC Glucose 166 mg/dl (70-99) H 02/05/23 11:57 Estimat Average Glucose 148 mg/dl 01/31/23 05:38 Hemoglobin A1c 6.8 % (4.5-5.6) H 01/31/23 05:38 Calcium 9.2 mg/dl (8.6-10.3) 02/05/23 05:44 Phosphorus 3.4 mg/dl (2.5-4.9) 02/02/23 04:17 Magnesium 2.0 mg/dl (1.7-2.4) 02/01/23 05:22 Total Bilirubin 0.3 mg/dl (0.2-1.0) 02/03/23 06:16 AST 20 U/L (13-39) 02/03/23 06:16 ALT 26 U/L (7-52) 02/03/23 06:16 Alkaline Phosphatase 92 U/L (34-104) 02/03/23 06:16 Troponin I High Sens 10.2 pg/ml (0-14) 01/30/23 08:39 B-Natriuretic Peptide 70 pg/ml (0-100) 01/30/23 08:39 Total Protein 6.5 gm/dl (6.0-8.3) 02/03/23 06:16 Albumin 3.6 gm/dl (3.4-5.0) 02/03/23 06:16 Globulin 2.9 gm/dl (2.5-4.0) 02/03/23 06:16 Albumin/Globulin Ratio 1.2 (0.9-2) 02/03/23 06:16 Procalcitonin 0.15 ng/ml (0-0.5) 01/30/23 08:39 Urine Color Yellow 01/30/23 09:21 Urine Appearance Clear (Clear) 01/30/23 09:21 Urine pH 5.5 (4.5-7.5) 01/30/23 09:21 Ur Specific [place] 1.006 (1.000-1.030) 01/30/23 09:21 Urine Protein Negative (Negative) 01/30/23 09:21 Urine Glucose (UA) Negative (Negative) 01/30/23 09:21 Urine Ketones Negative (Negative) 01/30/23 09:21 Urine Blood Negative (Negative) 01/30/23 09:21 Urine Nitrite Negative (Negative) 01/30/23 09:21 Urine Bilirubin Negative (Negative) 01/30/23 09:21 Urine Urobilinogen Negative (Negative) 01/30/23 09:21 Ur Leukocyte Esterase Negative (Negative) 01/30/23 09:21 Pleural pH 7.61 (7.3-7.4) H 01/30/23 Unknown Pleural LDH 138 U/L 01/30/23 Unknown Pleural Glucose 259 mg/dl 01/30/23 Unknown Nasal Screen MRSA (PCR) Negative (Negative) 01/30/23 14:49 SARS-CoV-2, RNA, NAAT NEGATIVE (NEGATIVE) 01/30/23 08:39 Impressions Chest CTA 01/30/23 13:02 CT ANGIOGRAPHY OF THE CHEST, PULMONARY EMBOLUS PROTOCOL CLINICAL HISTORY: Dyspnea. Lung cancer. COMPARISON STUDY: Chest CT January 18, 2023 and chest radiograph performed earlier today. PET/CT December 11, 2022. TECHNIQUE: Following IV administration of 120 mL of Optiray, helical axial images of the chest were obtained utilizing the pulmonary embolus protocol. Maximal intensity projections and sagittal and coronal reformats were viewed on an independent 3D workstation. IV contrast was administered without complication. Automated exposure control was utilized for the study. A dose lowering technique was utilized adhering to the principles of ALARA. CT DOSE: 867.49 mGy.cm FINDINGS: No pulmonary emboli are identified. Cardiomegaly is noted. There is no pericardial effusion. Mildly enlarged mediastinal and bilateral hilar lymph nodes are similar to prior CT. Mildly enlarged gastrohepatic ligament lymph nodes are also similar to CT of January 18, 2023. Index node measures 1.6 x 1.3 cm. There is no pneumothorax. A small to moderate right pleural effusion is similar to prior CT. Extensive right middle lobe and lower lobe airspace opacity is also similar to prior exam. Areas of decreased enhancement are again noted. No rim- enhancing fluid collection is present. The known right lower lobe lesion is obscured on this exam. Interlobular septal thickening is present. A 7 mm lingular nodule is unchanged from earlier exams. This is likely benign. Scattered small sclerotic metastases and numerous hepatic metastases are again visualized. The appearance of the chest has not significantly changed since prior chest CT. IMPRESSION: 1. No pulmonary emboli identified. 2. Small to moderate right pleural effusion, similar to prior CT. Extensive right middle lobe and right lower lobe consolidation which is also similar to prior exam. This could reflect pneumonia or radiation pneumonitis. 3. Cardiomegaly with mild interstitial pulmonary edema. 4. Redemonstration of jacquelyn, skeletal and hepatic metastases. ACT 112: Negative or not required by law. Electronically signed by: Nehemias Holt M.D. 01/30/2023 2:16 PM (8) CHF (congestive heart failure) Heart failure chronicity: acute on chronic Heart failure type: unspecified Qualified Code(s): I50.9 - Heart failure, unspecified
--- NOTE | 2023-02-05 13:18 | XRay Report ---
XR chest 2V PA/lateral CLINICAL HISTORY: pleural effusion COMPARISON STUDY: Chest CT January 30, 2023. Chest radiograph February 03, 2023. FINDINGS: There is no pneumothorax. Right lower lung airspace opacity persists. There is no significa nt residual pleural effusion. Interstitial thickening is unchanged. Cardiomegaly is unchanged. The ap pearance of the chest is similar to prior study. IMPRESSION: 1. No significant change in appearance of the chest. Persistent right lower lung airspace opacity. 2. Stable cardiomegaly and interstitial thickening. ACT 112: Negative or not required by law. Electronically signed by: Nehemias Holt M.D. 02/05/2023 1:17 PM
[2023-02-05] MEDS: FUROSEMIDE 40 MG/4 ML VIAL IV SCH (18:16)
[2023-02-05] MEDS: PRAVASTATIN SOD 40 MG TAB PO SCH (20:20)
[2023-02-06] MEDS: ACETAMINOPHEN 325 MG TAB PO PRN ×2 (04:35→08:42)
[2023-02-06] MEDS: LEVOTHYROXINE SODIUM 150 MCG TABLET PO SCH (04:35)
[2023-02-06 06:04] LABS: Basophils # (auto) 0.05 K/uL (0-0.2); Basophils % (auto) 0.6 %; Eosinophils % (auto) 4.5 %; Hematocrit (blood only) 33.1 % (37.0-47.0); Hemoglobin 10.4 g/dl (12.0-16.0); Immature Granulocytes # (auto) 0.08 K/uL (0.01-0.20); Immature Granulocytes % (auto) 0.9 %; Lymphocytes # (auto) 0.88 K/uL (1.2-3.4); Lymphocytes % (auto) 9.9 %; Mean Corpuscular Hemoglobin 29.1 pg (25.0-34.0); Mean Corpuscular Hgb Conc 31.4 g/dL (32.0-36.0); Mean Corpuscular Volume 92.7 fL (80.0-100.0); Mean Platelet Volume 10.1 fL (9.4-12.4); Monocytes # (auto) 0.66 K/uL (0.11-0.59); Monocytes % (auto) 7.4 %; Neutrophils # (auto) 6.84 K/uL (1.40-6.50); Neutrophils % (auto) 76.7 %; Platelet Count 248 K/uL (130-400); RDW Coefficient of Variation 14.4 % (11.5-14.5); RDW Standard Deviation 48.8 fL (36.4-46.3); Red Blood Count 3.57 M/uL (4.20-5.40); White Blood Count 8.91 K/ul (4.8-10.8)
[2023-02-06 06:15] LABS: BUN Creatinine Ratio 30.4 (10-20); Creatinine Clr Calc Pharmacy 128.3 ml/min; Est GFR (African American) 120.1 ml/min; Est GFR (Non-African American) 103.7 ml/min; Potassium 3.7 mmol/L (3.5-5.1)
[2023-02-06] MEDS: SODIUM CHLOR 7% 4 ML NEB NEB SCH (07:22)
[2023-02-06] MEDS: ALBUTEROL 0.083% NEBU SOLN 3 ML VIAL NEB SCH ×3 (07:22→15:25)
[2023-02-06] MEDS: METOPROLOL SUCC 25MG EXT REL TAB PO SCH (08:37)
[2023-02-06] MEDS: HEPARIN SOD 5,000 UNIT/0.5 ML VIAL SQ SCH (08:38)
[2023-02-06] MEDS: FLUTICASONE/VILANTEROL 200/25MCG 14 PUFFS/INHALER INH SCH (08:38)
[2023-02-06] MEDS: INSULIN ASPART PER UNIT CHARGE SC SCH ×2 (08:38→12:18)
[2023-02-06] MEDS: amLODIPine BESYLATE 5 MG TAB PO SCH (08:38)
[2023-02-06] MEDS: ASPIRIN 81 MG ECTAB PO SCH (08:38)
[2023-02-06] MEDS: POTASSIUM CHLORIDE 10 MEQ TABCR PO SCH (08:43)
[2023-02-06 15:48] VITALS: BP 113/62; PULSE 64; TEMP 98.6; O2SAT 95
--- NOTE | 2023-02-06 15:52 | Discharge Summary ---
Date of Service February 06, 2023 Admission HPI Per Admitting Provider Ms. Ga is a 67-year-old female that presents to the ED today with increasing shortness of breath that has been worsening over past 24 hours even with ambulation. SpO2 was in the high 60's on arrival to ED. Last night she did sleep and used her CPAP. She denies any swelling in her legs since DC, but does report productive cough with yello/rodríguez sputum. Patient has an unfortunate diagnosis recently made 01/26 of metastatic adenocarcinoma with metastasis to bone and liver. Patient has recent admission 01/18 to 01/22 for which pulmonary did evaluate her for acute on chronic respiratory failure and malignant right- sided pleural effusions. Thoracentesis performed 01/21. She did see Dr. Kirby after discharge and they are anticipating starting treatment over the next few weeks. Per review of outpatient records she was possibly a candidate for Keytruda with possible radiation to her left arm. There also was discussion regarding a pleur-x catheter depending on how frequent her effusions returned or worsened. Pt denies POZO, dizziness, fevers, chills, chest tightness, wheezing, abdominal pain, recent falls or trauma, no recent sick contacts. Additional past medical history includes diastolic congestive heart failure, COPD (on CPAP), carotid stenosis, [id number] diabetes mellitus type 2, HTN, HLD, hypothyroidism and previous alcohol use. On examination, patient is sitting upright in her hospital bed and able to talk in full complete sentences. She is on 6 liters oxymask and her SpO2 88% and with speaking lengthy sentences she does drop to 86-87%. Throughout our interaction, patient began to get tired and more hypoxic; placed on HFNC. Due to increased O2 needs, pending pulmonary intervention; will place in ICU. Leukocytosis 14.73, Creatinine 0.5, procalcitonin negative. CXR reveals pulmonary edema and small to moderate pleural effusion on right side; appears worse compared to previous CXR.Suspect heart failure has been an exacerbating factor to her symptoms. Received Lasix 40 mg IV once in ED; will give another dose in a few hours; followed by BID dosing. Patient will be admitted for further evaluation and management. Please see A/P for further details. Admission Exam Per Admitting Provider Neuro: AAOx4, PERRLA, no aphagia, memory changes, CNII-XII grossly intact HEENT: head normocephalic, moist mucus membranes CV: S1/S2, (-) M/G/R, (-) edema, cap refill < 3 seconds Resp: Lungs decreased bases with crackles on middle right lung. On HFNC GI: Abdomen S/NT/ND, Ax4 bowel sounds, (-) CVA tenderness Musculoskeletal: 5/5 B/L UE strength, 5/5 B/L LE strength. No gait disturbance; current bed rest Skin: (-) rashes , (-) erythema. Psych: euthymic mood Principal Diagnosis Acute hypoxic respiratory failure Acute on chronic diastolic heart failure Malignant pleural effusion status post chest tube placement Discharge Exam Constitutional: WD/WN, vitals as above, NAD, sitting up in bed, pleasant, conversing easily Respiratory: Decreased breath sound at right lower base. Bilateral crackles heard. Cardiovascular: RRR, no murmur, no edema Vessels: no JVD or carotid bruit Chest: normal inspection of chest Abdomen: normal bowel sounds, soft, nontender, no hepatosplenomegaly Musculoskeletal: no cyanosis or clubbing, extremities motor strength 5/5 Skin: no rashes, warm and dry normal turgor Neurologic: PERRL, EOMI, accommodation nl, no face palsy, no dysarthria CN's II- XI intact bilaterally and moves all extremities Psychiatric: A+Ox3, euthymic affect Lymphatic: no cervical or axillary lymphadenopathy : deferred Discharge Data Allergies Allergy/AdvReac Type Severity Reaction Status Date / Time tetracycline AdvReac Mild HEADACHE Verified 01/18/23 20:12 Consultations 01/30/23 10:13 ED Decision to Admit Stat 01/30/23 10:32 Consult Pulmonology Routine 01/30/23 12:22 Consult Improvement Coordinator Routine Ordered Studies 01/30/23 12:10 US point of care ultrasound Stat 01/30/23 13:02 CT angio chest PE protocol Stat Hospital Course (1) Acute and chronic respiratory failure with hypoxia: . (2) Metastatic lung cancer (metastasis from lung to other site): (3) Pleural effusion, right: (4) COPD (chronic obstructive pulmonary disease): (5) BHAVIK on CPAP: (6) CAD (coronary artery disease): (7) Carotid stenosis: (8) CHF (congestive heart failure): (9) HTN (hypertension): (10) HLD (hyperlipidemia): (11) Diabetes mellitus, type II: (12) Hypothyroid: Plan Patient is a 67-year-old female presents with shortness of breath. New diagnosis of metastatic adenocarcinoma of the lung with mets mets to bone and liver early January 2023. On admission, patient was requiring high flow nasal cannula and BiPAP to maintain saturation. Chest x-ray showed pulmonary edema. She was admitted to ICU. CTA chest on admission did not show any PE. Patient underwent placement of right-sided chest tube with removal of 900 cc of pleural effusion, chest tube was removed on February 02. She was diuresed with IV Lasix. Cytology showed metastatic adenocarcinoma of pulmonary origin. Patient was treated with course of antibiotic. Patient's oxygenation down trended over the course of the hospitalization; she was at baseline oxygen requirement at discharge. Her Lasix was increased to 40 mg in a.m. and 20 mg in p.m. She was recommended to weigh herself daily. Nebulizer prescription was sent as well. Patient to follow-up with her primary care doctor and oncology. Please note the above document was generated using voice recognition software. It may contain grammatical, syntax or spelling errors. Any formal questions or concerns about the content, text or information contained within the body of this dictation should be directly addressed to the provider for clarification Total Time Total Time Spent Total Time Spent (In Minutes): 45 Total Time Includes: Examination of the Patient, Discharge Planning, Medication Reconciliation, Communication With Other Providers and Other Discharge Plan Discharge Items Patient Disposition: Home - Self-Care Reason For Visit: SOB Discharge Diagnosis: Acute on chronic hypoxic respiratory failure Acute on chronic diastolic heart failure Malignant pleural effusion status post chest tube placement Activity: Resume your previous activity Non-emergency contact: Primary Care Provider Call non-emergency contact if: you have any medication questions and your symptoms worsen Follow-up/Referrals: Bipin Ramos MD [Primary Care Provider] - (Date & Time 02/12/2023 1:00 PM Provider Andre Gannon DO [facility] ) Diet: Regular Addtl Attending Provider Instructions: You were admitted to the hospital with shortness of breath. The likely cause for the shortness of breath is related with heart failure and pleural effusion. The following changes is made to your medication regimen: 1) Take Lasix 40 mg once daily in the morning and take 20 mg once daily around lunchtime (1 to 2pm). Please measure your weight daily on a standing rating scale at the same time every morning and keep a record of it. If your weight increases by 3 pounds to 5 pounds and you notice increase in the leg swelling or increased shortness of breath; you can increase the dose of Lasix to 40 mg twice a day till your weight decreases back down. Also contact your primary care doctor. 2) you are prescribed nebulizer solution to be used as needed every 8 hours. An appointment is set up for you with your primary care doctor. Please follow-up with oncology and pulmonology. Pending Studies at Discharge: No Stand-Alone Forms: [facility], Smoking Cessation Medications and DC Order Prescriptions: New albuterol sulfate 2.5 mg/0.5 mL solution for nebulization 2.5 mg inhalation Q8H PRN (Reason: bronchospasm) Qty: 30 0RF furosemide [Lasix] 20 mg tablet 20 mg PO DAILYBL Qty: 30 0RF Continued albuterol sulfate [Ventolin HFA] 90 mcg/actuation HFA aerosol inhaler 2 puff inhalation Q4 PRN (Reason: Wheezing) metoprolol succinate 25 mg tablet extended release 24 hr 12.5 mg PO BID aspirin 81 mg Tablet,Delayed Release (Dr/Ec) 81 mg PO QAM furosemide [Lasix] 40 mg tablet 40 mg PO QAM Qty: 30 0RF pravastatin 40 mg tablet 40 mg PO HS metformin 500 mg tablet 500 mg PO BIDM amlodipine 2.5 mg tablet 2.5 mg PO DAILY ezetimibe 10 mg tablet 10 mg PO DAILY Black Elderberry 1 tab PO QAM levothyroxine 150 mcg tablet 150 mcg PO QAM turmeric 400 mg Capsule 400 mg PO DAILY potassium chloride 10 mEq tablet extended release 10 meq PO DAILY Qty: 30 0RF Trelegy Ellipta 100-62.5-25 mcg blister with device 1 inh INHALATION DAILY Discharge Orders: Discharge Order (Routine); Ordered 02/06/23 Ordered By: Arnulfo Dickson/Other Patient Handouts: High Blood Sugar (Hyperglycemia), Hypoglycemia ( Low Blood Sugar), Managing Type 2 Diabetes, How to Check Your Blood Sugar Admission Data Admit Date/Time: 01/30/23 10:05 Attending Provider: Arnulfo Zimmer Admalicia Provider: Arnulfo Zimmer Primary Care Provider: Bipin Ramos Other Providers: Jonathan So ; Arnulfo Zimmer ; Myke Scott ; Vidal Elkins Other Interventions: Discharge Summary Assessment (RN) Last Done: 02/06/23 09:48
== END 2023-02-06 16:20 | disposition home or self-care (01) | DRG 180 ==
LOC: EDSEX → ED 08:01 → EDINP 10:05 → SUATTDRO 10:05 → 1E 12:58 → 4W 02-01 22:16

== ENCOUNTER 2023-02-17 15:37 | Inpatient (IN) ==
--- NOTE | 2023-02-17 16:06 | Emergency Department Note ---
Impression & Plan Acute and chronic respiratory failure with hypercapnia, Pleural effusion, right, Metastatic lung cancer (metastasis from lung to other site), COPD (chronic obstructive pulmonary disease) ED Provider Note NAME: NATO PETTIT AGE: 68 SEX: F : 1955 ARRIVES VIA: Walk-In INFORMANT: Patient, ED PROVIDER(S): Magdiel Musa MD CHIEF COMPLAINT: Shortness of breath MEDICAL DECISION MAKING: Patient presents due to concern for shortness of breath in setting of known history of lung cancer with prior history of malignant pleural effusion. The patient was noted to be hypoxemic on her regular 4 L in triage at 79%. The pat ient was placed on increasing amounts of supplemental oxygen per patient did have IV established blood was obtained the patient was placed on BiPAP. The patient was ordered neb treatments magnesium IV fluids and steroids. The patient's blood work shows mild white count of 12.8 with mild anemia he moglobin 11.7. Platelet count is unremarkable. Patient did have a VBG completed which shows chronic hypercarbia with a normal VBG pH. Kidney function unremarkable but with prerenal azotemia. Hypomagnesemia noted but the patient was already ordered magnesium for treatment of her COPD. COVID flu and RSV negative. Patient's chest x-ray shows moderate right-sided pleural effusion. I did reassess the patient was feeling improved. I did speak the on-call hospitalist Dr. Elkins who wanted an ABG which was ordered. The patient was admitted to the medicine service. Critical Care: I have personally spent 47 minutes of critical care time in direct management of this patient. This includes bedside care, interpretation of diagnostic studies, and testing, discussion with consultants, patient, and family members, and other require inpatient management activities. This 47 minutes is in excess of all separately billable procedures. Prior /Outside records reviewed: Did review a recent pulmonology note which notes the patient does have a history of COPD pleural effusion right lower lobe pneumonia. 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 Patient did have a chest tube placed during her most recent admission for removal of a pleural effusion. Differential diagnosis: Reactive airway disease, pneumonia, pneumothorax, COPD, CHF, infections, cardiac ischemia, pulmonary embolism, musculoskeletal, gastrointestinal, as well as other pathologies. Diagnostics, as interpreted by me: ECG: Normal sinus rhythm, rate of 86, normal intervals normal axis no ST elevations, T wave versions anteriorly. Cardiac monitoring: An order was placed for continuous cardiac monitoring. The monitor shows a rate of 82 with sinus rhythm. Patient was placed on pulse oximetry Medical decision rules: None Imaging studies: See below I informally reviewed the patient's chest x-ray which does show right-sided pleural effusion HPI: Patient presents due to concerns for worsening shortness of breath and associated exertional dyspnea that got worse yesterday. The patient does have a known history of metastatic lung disease currently does follow with oncology as well as pulmonology. The patient does require 4 L at all times. While exerting herself at home she is going to and from the bathroom which may be no more than 20 feet the patient was at 60%. The patient was noted to be in the 70s on 4 L upon presentation here. Patient has had some associated cough primarily dry in nature. Patient is a former smoker. No chest pains. The patient has not noticed any leg swelling. Patient did require drainage of the right side of the chest secondary to fluid accumulation. The patient was discharged at the end of January. Patient denies any nausea vomiting or diarrhea. Patient is accompanied by family over the bedside. Patient has had associated PLASCENCIA. Patient states that she has been out of her albuterol. Patient has been wearing CPAP at nighttime PAST MEDICAL HISTORY: See Below PAST SURGICAL HISTORY: See Below SOCIAL HISTORY: See Below HOME MEDICATIONS: See Below ALLERGIES: See Below VITALS: See Below PHYSICAL EXAMINATION: GENERAL: NAD, wearing a mask, non-toxic. EYE EXAM: Normal conjunctiva. PERRL, no anisocoria and EOM's grossly intact w/o pain. Oropharynx: Edentulous. NECK: Supple, no nuchal rigidity, no adenopathy, non-tender. No signs of meningismus. FROM of the neck with good chin to chest and neck extension. No stridor. LUNGS: Decreased breath sounds throughout most prominent in the right chest. Normal chest wall mechanics. HEART: NSR, no MRG. ABDOMEN: Abdomen soft, non-tender, no masses, no rebound or guarding. BACK: No CVA TTP. SKIN: No rashes and no bruising. UPPER EXTREMITIES: Upper extremities are grossly normal. LOWER EXTREMITIES: Grossly normal, no edema. NEURO EXAM: A&O x3, cranial nerves II-XII grossly intact, normal speech, moves all 4 extremities. Past Med/Surg History Medical History Acute and chronic respiratory failure with hypoxia Alcohol use Alkalosis, metabolic CAD (coronary artery disease) NSTEMI 2009 - moderate nonobstructive disease, no stenting Carotid stenosis Chronic diastolic (congestive) heart failure Chronic respiratory failure with hypoxia Constipation COPD, group D, by GOLD 2017 classification Diabetes mellitus, type II HLD (hyperlipidemia) HTN (hypertension) Hypothyroid Metastatic lung cancer (metastasis from lung to other site) (12/11/22) Obesity (BMI 30.0-34.9) BHAVIK on CPAP Primary cancer of right lower lobe of lung (01/31/22) s/p radiation Pulmonary hypertension Right lower lobe pneumonia Surgical History S/P cholecystectomy Family History Mother , age 69 Heart disease Rheumatoid arthritis Osteoarthritis Father , age 69 Myocardial infarction Asthma COPD (chronic obstructive pulmonary disease) Sister , age 29 Lung disease Other Diabetes Social History Smoking Status: Former smoker Tobacco Type: Cigarettes Age Started Using Tobacco: 18; Age Quit Using Tobacco: 60; packs per day: 2; Second Hand Exposure: No; Do You Dip or Chew Tobacco: No; Hx Alcohol Use: Yes Alcohol type: beer Alcohol type Comment: 3-5 coors light daily Alcohol Intake Frequency: 4 or More x per/Week Hx Substance Use: No Preferred Language: Japanese Communication Ability: Effective Ware Finisher Required: No Beliefs That Will Affect Care: None marital status: / Current Living Situation: Alone Current Living Situation Comment: Pt's daughters lives near by current occupational status: retired and disabled 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 [employer] How many Children do You have: 3 Feels Safe at Home: Yes Safety Concerns: Feels Safe At This Time caffeine: Yes (Diet pepsi - 4 cans/day) Assistive Devices: CPAP and Oxygen - Continuous Allergies Allergies Allergy/AdvReac Type Severity Reaction Status Date / Time tetracycline AdvReac Mild HEADACHE Verified 02/17/23 17:37 Home Meds Home Medications Medication Instructions Recorded Confirmed aspirin 81 mg tablet,delayed 81 mg PO QAM 05/02/19 06/06/23 release Black Elderberry 1 tab PO QAM 03/18/21 02/17/23 amlodipine 2.5 mg tablet 2.5 mg PO DAILY 03/18/21 02/17/23 ezetimibe 10 mg tablet 10 mg PO DAILY 03/18/21 02/17/23 metformin 500 mg tablet 500 mg PO BIDM 03/18/21 02/17/23 albuterol sulfate 90 mcg/actuation 2 puff inhalation Q4 PRN Wheezing 03/19/22 02/17/23 aerosol inhaler (Ventolin HFA) levothyroxine 150 mcg tablet 150 mcg PO QAM 10/24/22 02/17/23 turmeric 400 mg capsule 400 mg PO DAILY 10/24/22 02/17/23 metoprolol succinate 25 mg 12.5 mg PO BID 12/02/22 02/17/23 tablet,extended release 24 hr fluticasone fur. 100 mcg-umeclid 1 inh inhalation DAILY 01/03/23 02/17/23 62.5 mcg-vilant 25 mcg inhalat.powder (Trelegy Ellipta) pravastatin 40 mg tablet 40 mg PO HS 01/30/23 02/17/23 Previous Rx's Medication Instructions Recorded furosemide 40 mg tablet (Lasix) 40 mg PO QAM #30 tabs 01/16/19 potassium chloride 10 mEq 10 meq PO DAILY #30 tabs 10/30/22 tablet,extended release albuterol sulfate 2.5 mg/0.5 mL 2.5 mg (0.5 mL) inhalation Q8H PRN 02/06/23 solution for nebulization bronchospasm #30 ea furosemide 20 mg tablet (Lasix) 20 mg PO DAILYBL #30 tabs 02/06/23 Results & Data (ED) Vital Signs Vital Signs - 24 hr 02/17/23 15:46 02/17/23 15:59 02/17/23 16:00 Temperature 36.6 C Temperature Source Temporal Artery Scan Pulse Rate 83 82 Pulse Rate [Apical] 80 Pulse Rate from SpO2 Sensor Pulse Rhythm Respiratory Rate 28 H 24 24 Respiratory Effort / Characteristics Short of Breath Respiratory Depth Shallow Respiratory Pattern Tachypnea Blood Pressure 124/67 130/76 Blood Pressure Mean 86 94 Blood Pressure Position Sitting Pulse Oximetry 79 L 83 L 95 Oxygen Delivery Method Nasal Cannula Nasal Cannula Non-rebreather Oxygen Flow Rate 4 3 15 Fraction of Inspired Oxygen Sepsis Recent Fever Within 48 Hours Yes Sepsis New/Unexplained Change in Mental Status No Sepsis Action Taken by Nursing No Action Required 02/17/23 15:55 02/17/23 16:10 02/17/23 16:16 Temperature Temperature Source Pulse Rate 79 79 Pulse Rate [Apical] Pulse Rate from SpO2 Sensor Pulse Rhythm Regular Respiratory Rate 24 Respiratory Effort / Characteristics Respiratory Depth Respiratory Pattern Blood Pressure Blood Pressure Mean Blood Pressure Position Pulse Oximetry 80 L 95 Oxygen Delivery Method Nasal Cannula Non-rebreather Oxygen Flow Rate 4 15 Fraction of Inspired Oxygen Sepsis Recent Fever Within 48 Hours Sepsis New/Unexplained Change in Mental Status Sepsis Action Taken by Nursing 02/17/23 16:32 02/17/23 16:33 02/17/23 15:54 Temperature Temperature Source Pulse Rate 79 81 Pulse Rate [Apical] 79 Pulse Rate from SpO2 Sensor 82 Pulse Rhythm Respiratory Rate 27 H 27 H 29 H Respiratory Effort / Characteristics Spontaneous Spontaneous Respiratory Depth Normal Respiratory Pattern Tachypnea Blood Pressure Blood Pressure Mean Blood Pressure Position Pulse Oximetry 92 597 H 87 L Oxygen Delivery Method BiPAP Oxygen Flow Rate Fraction of Inspired Oxygen 45 45 Sepsis Recent Fever Within 48 Hours Sepsis New/Unexplained Change in Mental Status Sepsis Action Taken by Nursing 02/17/23 15:55 02/17/23 15:55 02/17/23 16:00 Temperature Temperature Source Pulse Rate 82 Pulse Rate [Apical] Pulse Rate from SpO2 Sensor 82 Pulse Rhythm Respiratory Rate 29 H Respiratory Effort / Characteristics Respiratory Depth Respiratory Pattern Blood Pressure 130/76 136/75 Blood Pressure Mean 89 102 Blood Pressure Position Pulse Oximetry 84 L Oxygen Delivery Method Oxygen Flow Rate Fraction of Inspired Oxygen Sepsis Recent Fever Within 48 Hours Sepsis New/Unexplained Change in Mental Status Sepsis Action Taken by Nursing 02/17/23 16:00 02/17/23 16:10 02/17/23 16:20 Temperature Temperature Source Pulse Rate 78 80 80 Pulse Rate [Apical] Pulse Rate from SpO2 Sensor 78 79 82 Pulse Rhythm Respiratory Rate 30 H 25 H 17 Respiratory Effort / Characteristics Respiratory Depth Respiratory Pattern Blood Pressure Blood Pressure Mean Blood Pressure Position Pulse Oximetry 96 95 89 L Oxygen Delivery Method Oxygen Flow Rate Fraction of Inspired Oxygen Sepsis Recent Fever Within 48 Hours Sepsis New/Unexplained Change in Mental Status Sepsis Action Taken by Nursing 02/17/23 16:30 02/17/23 16:40 06/06/23 16:50 Temperature Temperature Source Pulse Rate 78 79 79 Pulse Rate [Apical] Pulse Rate from SpO2 Sensor 77 79 80 Pulse Rhythm Respiratory Rate 27 H 29 H 19 Respiratory Effort / Characteristics Respiratory Depth Respiratory Pattern Blood Pressure Blood Pressure Mean Blood Pressure Position Pulse Oximetry 96 92 92 Oxygen Delivery Method Oxygen Flow Rate Fraction of Inspired Oxygen Sepsis Recent Fever Within 48 Hours Sepsis New/Unexplained Change in Mental Status Sepsis Action Taken by Nursing 02/17/23 17:00 02/17/23 17:10 02/17/23 17:20 Temperature Temperature Source Pulse Rate 75 76 77 Pulse Rate [Apical] Pulse Rate from SpO2 Sensor 75 77 76 Pulse Rhythm Respiratory Rate 22 28 H 24 Respiratory Effort / Characteristics Respiratory Depth Respiratory Pattern Blood Pressure Blood Pressure Mean Blood Pressure Position Pulse Oximetry 92 92 92 Oxygen Delivery Method Oxygen Flow Rate Fraction of Inspired Oxygen Sepsis Recent Fever Within 48 Hours Sepsis New/Unexplained Change in Mental Status Sepsis Action Taken by [facility] Medications Current Medication List: was personally reviewed by me Laboratory Data Attestation: I reviewed the patient's lab results. 02/17/23 16:00 02/17/23 16:00 Lab Results 02/17/23 02/17/23 02/17/23 Range/Units 16:00 16:00 16:44 WBC 12.86 H (4.8-10.8) K/ul RBC 4.06 L (4.20-5.40) M/uL Hgb 11.7 L (12.0-16.0) g/dl Hct 37.9 (37.0-47.0) % MCV 93.3 (80.0-100.0) fL MCH 28.8 (25.0-34.0) pg MCHC 30.9 L (32.0-36.0) g/dL RDW Std Deviation 50.9 H (36.4-46.3) fL RDW Coeff of Naa 14.8 H (11.5-14.5) % Plt Count 278 (130-400) K/uL MPV 10.5 (9.4-12.4) fL Immature Gran % (Auto) 0.9 % Neut % (Auto) 84.0 % Lymph % (Auto) 6.5 % Dane % (Auto) 5.0 % Eos % (Auto) 3.0 % Baso % (Auto) 0.6 % Neut # (Auto) 10.80 H (1.40-6.50) K/uL Lymph # (Auto) 0.84 L (1.2-3.4) K/uL Dane # (Auto) 0.64 H (0.11-0.59) K/uL Eos # (Auto) 0.38 (0-0.50) K/uL Baso # (Auto) 0.08 (0-0.2) K/uL Immature Gran # (Auto) 0.12 (0.01-0.20) K/uL VBG pH (7.36-7.41) VBG pCO2 (38-50) mmHg VBG pO2 mmHg VBG HCO3 mmol/L VBG O2 Saturation % VBG Base Excess mEq/L Sodium 139 (136-145) mmol/L Potassium 4.0 (3.5-5.1) mmol/L Chloride 94 L (98-107) mmol/L Carbon Dioxide 36 H (21-32) mmol/L Anion Gap 9 (3-11) BUN 16 (6-23) mg/dl Creatinine 0.58 L (0.6-1.2) mg/dl Est Cr Clr Drug Dosing 101.5 ml/min Est GFR ( Amer) 111.3 ml/min Est GFR (Non-Af Amer) 96.1 ml/min BUN/Creatinine Ratio 27.6 H (10-20) Glucose 129 H (70-99(Fasting)) mg/dl Calcium 9.4 (8.6-10.3) mg/dl Magnesium 1.6 L (1.7-2.4) mg/dl Total Bilirubin 0.4 (0.2-1.0) mg/dl AST 17 (13-39) U/L ALT 20 (7-52) U/L Alkaline Phosphatase 117 H (34-104) U/L Troponin I High Sens 5.7 (0-14) pg/ml Total Protein 7.6 (6.0-8.3) gm/dl Albumin 4.1 (3.4-5.0) gm/dl Globulin 3.5 (2.5-4.0) gm/dl Albumin/Globulin Ratio 1.2 (0.9-2) SARS-CoV-2 (PCR) NEGATIVE (Negative) Influenza Type A (PCR) Negative (Neg) Influenza Type B (PCR) Negative (Neg) RSV (RT-PCR) Negative (Neg) 06/06/23 Range/Units 17:21 WBC (4.8-10.8) K/ul RBC (4.20-5.40) M/uL Hgb (12.0-16.0) g/dl Hct (37.0-47.0) % MCV (80.0-100.0) fL MCH (25.0-34.0) pg MCHC (32.0-36.0) g/dL RDW Std Deviation (36.4-46.3) fL RDW Coeff of Naa (11.5-14.5) % Plt Count (130-400) K/uL MPV (9.4-12.4) fL Immature Gran % (Auto) % Neut % (Auto) % Lymph % (Auto) % Dane % (Auto) % Eos % (Auto) % Baso % (Auto) % Neut # (Auto) (1.40-6.50) K/uL Lymph # (Auto) (1.2-3.4) K/uL Dane # (Auto) (0.11-0.59) K/uL Eos # (Auto) (0-0.50) K/uL Baso # (Auto) (0-0.2) K/uL Immature Gran # (Auto) (0.01-0.20) K/uL VBG pH 7.44 H (7.36-7.41) VBG pCO2 57 H (38-50) mmHg VBG pO2 124 mmHg VBG HCO3 39 mmol/L VBG O2 Saturation 98.4 % VBG Base Excess 12.1 mEq/L Sodium (136-145) mmol/L Potassium (3.5-5.1) mmol/L Chloride (98-107) mmol/L Carbon Dioxide (21-32) mmol/L Anion Gap (3-11) BUN (6-23) mg/dl Creatinine (0.6-1.2) mg/dl Est Cr Clr Drug Dosing ml/min Est GFR ( Amer) ml/min Est GFR (Non-Af Amer) ml/min BUN/Creatinine Ratio (10-20) Glucose (70-99(Fasting)) mg/dl Calcium (8.6-10.3) mg/dl Magnesium (1.7-2.4) mg/dl Total Bilirubin (0.2-1.0) mg/dl AST (13-39) U/L ALT (7-52) U/L Alkaline Phosphatase (34-104) U/L Troponin I High Sens (0-14) pg/ml Total Protein (6.0-8.3) gm/dl Albumin (3.4-5.0) gm/dl Globulin (2.5-4.0) gm/dl Albumin/Globulin Ratio (0.9-2) SARS-CoV-2 (PCR) (Negative) Influenza Type A (PCR) (Neg) Influenza Type B (PCR) (Neg) RSV (RT-PCR) (Neg) Administered Medications Furosemide (Furosemide 40 Mg/4 Ml Vial) 40 mg IV DAILY NABEEL Stop: 03/19/23 19:59 Last Admin: 02/17/23 21:21 Dose: 40 mg Documented By: DEEJAY Heparin Sodium (Porcine) (Heparin Sod 5,000 Unit/0.5 Ml Vial) 5,000 units SQ Q12 NABEEL Stop: 03/19/23 20:59 Last Admin: 02/17/23 21:21 Dose: Not Given Documented By: DEEJAY Cefepime HCl 2,000 mg/ Syringe 20 mls @ 5 mls/min IV Q8H NABEEL; Protocol Stop: 02/24/23 19:59 Last Admin: 02/17/23 21:21 Dose: 5 mls/min Documented By: DEEJAY Doxycycline Hyclate 100 mg/ (Dextrose) 110 mls @ 50 mls/hr IV Q12H NABEEL Stop: 02/24/23 19:59 Last Admin: 02/17/23 22:12 Dose: 50 mls/hr Documented By: DEEJAY Metoprolol Succinate (Metoprolol Succ 25mg Ext Rel Tab) 12.5 mg PO BID NABEEL Stop: 03/19/23 20:59 Last Admin: 02/17/23 21:21 Dose: 12.5 mg Documented By: DEEJAY Pravastatin Sodium (Pravastatin Sod 40 Mg Tab) 40 mg PO HS NABEEL Stop: 03/19/23 20:59 Last Admin: 02/17/23 21:22 Dose: 40 mg Documented By: DEEJAY Discontinued Medications Magnesium Sulfate/Dextrose (Magnesium Sulfate / D5w) 1 gm in 100 mls @ 100 mls/hr IV NOW STA Stop: 02/17/23 17:17 Last Infusion: 02/17/23 18:39 Dose: 0 mls/hr Documented By: Admin: 02/17/23 16:40 Dose: 100 mls/hr Documented By: CHARLES Levalbuterol HCl (Levalbuterol 1.25 Mg/3 Ml Neb) 1.25 mg NEB NOW STA; Protocol Stop: 02/17/23 16:17 Last Admin: 02/17/23 16:28 Dose: 1.25 mg Documented By: DAWNA Methylprednisolone (Methylprednisolone 125 Mg/2 Ml Vial) 60 mg IV NOW STA Stop: 02/17/23 16:19 Last Admin: 02/17/23 16:38 Dose: 60 mg Documented By: CHARLES Imaging Data Radiologist's Impression: Chest X-Ray 02/17/23 16:16 XR chest 1V portable CLINICAL HISTORY: Dyspnea TECHNIQUE: Single frontal radiograph of the chest was obtained. Comparison: Comparison is made to chest radiograph 02/05/2023 FINDINGS: No lines and tubes are seen. Cardiomegaly is noted. The aortic arch is calcified. Right greater than left airspace opacities are seen. There is a mo derate right pleural effusion. IMPRESSION: Moderate right pleural effusion and right greater than left airspace opacities, increased from prior exam. This likely reflects atelectasis with or without superimposed aspiration. ACT 112: Negative or not required by law. Electronically signed by: Marco A Dozier M.D. 02/17/2023 4:47 PM Discharge Plan Visit Data Chief Complaint: Shortness of Breath/Dyspnea Stated Complaint: SOB ED Provider: Magdiel Musa Discharge Problem: Acute and chronic respiratory failure with hypercapnia, Pleural effusion, right, Metastatic lung cancer (metastasis from lung to other site), COPD (chronic obstructive pulmonary disease) Patient Disposition: Admitted As Inpatient Discharge Instructions Interventions: ED Discharge Assessment Last Done: 02/17/23 19:10
[2023-02-17] MEDS ORDERED: LEVALBUTEROL 1.25 MG/3 ML NEB NEB STA (16:16)
[2023-02-17] MEDS ORDERED: methylPREDNISolone 125 MG/2 ML VIAL IV STA (16:18)
[2023-02-17] MEDS ORDERED: MAGNESIUM SULFATE / D5W 1 GM/100 ML BAG IV STA (16:18)
[2023-02-17 16:44] LABS: Basophils # (auto) 0.08 K/uL (0-0.2); Basophils % (auto) 0.6 %; Eosinophils # (auto) 0.38 K/uL (0-0.50); Hematocrit (blood only) 37.9 % (37.0-47.0); Hemoglobin 11.7 g/dl (12.0-16.0); Immature Granulocytes # (auto) 0.12 K/uL (0.01-0.20); Immature Granulocytes % (auto) 0.9 %; Lymphocytes # (auto) 0.84 K/uL (1.2-3.4); Lymphocytes % (auto) 6.5 %; Mean Corpuscular Hemoglobin 28.8 pg (25.0-34.0); Mean Corpuscular Hgb Conc 30.9 g/dL (32.0-36.0); Mean Corpuscular Volume 93.3 fL (80.0-100.0); Mean Platelet Volume 10.5 fL (9.4-12.4); Monocytes # (auto) 0.64 K/uL (0.11-0.59); Platelet Count 278 K/uL (130-400); RDW Coefficient of Variation 14.8 % (11.5-14.5); RDW Standard Deviation 50.9 fL (36.4-46.3); Red Blood Count 4.06 M/uL (4.20-5.40); White Blood Count 12.86 K/ul (4.8-10.8)
--- NOTE | 2023-02-17 16:48 | XRay Report ---
XR chest 1V portable CLINICAL HISTORY: Dyspnea TECHNIQUE: Single frontal radiograph of the chest was obtained. Comparison: Comparison is made to chest radiograph 02/05/2023 FINDINGS: No lines and tubes are seen. Cardiomegaly is noted. The aortic arch is calcified. Right greater than left airspace opacities are seen. There is a moderate right pleural effusion. IMPRESSION: Moderate right pleural effusion and right greater than left airspace opacities, increased from prior exam. This likely reflects atelectasis with or without superimposed aspiration. ACT 112: Negative or not required by law. Electronically signed by: Marco A Dozier M.D. 02/17/2023 4:47 PM
[2023-02-17 16:59] LABS: Albumin Globulin Ratio 1.2 (0.9-2); Albumin Level 4.1 gm/dl (3.4-5.0); BUN Creatinine Ratio 27.6 (10-20); Bilirubin,Total 0.4 mg/dl (0.2-1.0); Calcium 9.4 mg/dl (8.6-10.3); Creatinine Clr Calc Pharmacy 101.5 ml/min; Est GFR (African American) 111.3 ml/min; Est GFR (Non-African American) 96.1 ml/min; Globulin 3.5 gm/dl (2.5-4.0); Magnesium 1.6 mg/dl (1.7-2.4); Total Protein 7.6 gm/dl (6.0-8.3)
[2023-02-17 17:05] LABS: Troponin I High Sensitivity 5.7 pg/ml (0-14)
[2023-02-17 17:33] LABS: Base Excess VBG 12.1 mEq/L; HCO3 VBG 39 mmol/L; Oxygen Saturation VBG 98.4 %; PCO2 VBG 57 mmHg (38-50); PO2 VBG 124 mmHg; pH VBG 7.44 (7.36-7.41)
[2023-02-17 17:34] LABS: Influenza A virus by PCR Negative (Neg); Influenza B virus by PCR Negative (Neg); RSV by PCR Negative (Neg); SARS CoV2 RNA(COVID-19) Ceph NEGATIVE (Negative)
--- NOTE | 2023-02-17 18:05 | History & Physical Report ---
Date of Service February 17, 2023 Assessment & Plan (1) Acute on chronic respiratory failure with hypoxia: Plan: Has chronic respiratory failure on 4 L of oxygen at home Has been requiring initially nonrebreather followed by BiPAP in the emergency room to maintain saturation We will continue with BiPAP for now Pulmonary consult for further evaluation and recommendation (2) Right lower lobe pneumonia: Plan: She may have right lower lobe infiltration could be aspiration pneumonia Will start intravenous cefepime and Doxy to cover atypicals as well (3) Pleural effusion on right: Plan: Status post chest tube and drainage during last admission Pathology came back negative for malignancy Pulmonary evaluation for possible repeat thoracentesis (4) COPD (chronic obstructive pulmonary disease): Plan: We will continue with intravenous steroid and antibiotics We will continue with her usual nebulized bronchodilators (5) Metastatic lung cancer (metastasis from lung to other site): Plan: As per record she saw Dr. Kirby on 511 and recommended Keytruda and radiation treatment There is plan to start treatment in 3 weeks She has not had follow-up with Dr. Redmond since discharge from the hospital (6) BHAVIK on CPAP: Plan: Continue CPAP at night (7) HTN (hypertension): Plan: We will continue her usual blood pressure medications (8) Diabetes mellitus, type II: Plan: Hold metformin Blood sugar ACHS and SSI (9) CAD (coronary artery disease): Plan: No acute issue (10) HLD (hyperlipidemia): Plan: Continue current management (11) Hypothyroid: Plan: Continue supplement DVT prophylaxis Subcu heparin for now if no thoracentesis will start Lovenox CODE STATUS Full History of Present Illness Chief Complaint: Increasing shortness of breath and desaturation since yesterday Primary Care Provider: Bipin Ramos MD She is a 68 years old obese female with significant past medical history of metastatic adenocarcinoma of the lung with right pleural effusion, COPD, BHAVIK on CPAP, chronic congestive heart failure, hypertension, diabetes, hyperlipidemia apparently has been complaining of more shortness of breath at rest and with minimal exertion with significant desaturation since yesterday. She usually takes 4 L of oxygen to maintain saturation at home but as of yesterday her saturation is getting around 70s and has been requiring more than 4 L to maintain saturation. Denies any fever and or chills but she does have chronic c ough without any phlegm. Denies any chest pain and/or palpitation. No abdominal distention, pain, nausea and or vomiting. She initially required nonrebreather but during my examination she was on BiPAP and was saturating at 92% and is getting minimally improved. Her chest x-ray did not show increasing infiltration/effusion more on the right side. She was started with intravenous Solu-Medrol, intravenous antibiotic and also Lasix and was admitted to telemetry unit for continuation of care Allergies Allergy/AdvReac Type Severity Reaction Status Date / Time tetracycline AdvReac Mild HEADACHE Verified 02/17/23 17:37 Home Medications Medication Instructions Recorded Confirmed Type aspirin 81 mg tablet,delayed 81 mg PO QAM 01/13/19 02/17/23 History release furosemide 40 mg tablet (Lasix) 40 mg PO QAM #30 tabs 01/16/19 02/17/23 Rx Black Elderberry 1 tab PO QAM 03/18/21 02/17/23 History amlodipine 2.5 mg tablet 2.5 mg PO DAILY 03/18/21 02/17/23 History ezetimibe 10 mg tablet 10 mg PO DAILY 03/18/21 02/17/23 History metformin 500 mg tablet 500 mg PO BIDM 03/18/21 02/17/23 History albuterol sulfate 90 mcg/actuation 2 puff inhalation Q4 PRN Wheezing 03/19/22 02/17/23 History aerosol inhaler (Ventolin HFA) levothyroxine 150 mcg tablet 150 mcg PO QAM 10/24/22 02/17/23 History turmeric 400 mg capsule 400 mg PO DAILY 10/24/22 02/17/23 History potassium chloride 10 mEq 10 meq PO DAILY #30 tabs 10/30/22 02/17/23 Rx tablet,extended release metoprolol succinate 25 mg 12.5 mg PO BID 12/02/22 02/17/23 History tablet,extended release 24 hr fluticasone fur. 100 mcg-umeclid 1 inh inhalation DAILY 01/03/23 02/17/23 History 62.5 mcg-vilant 25 mcg inhalat.powder (Trelegy Ellipta) pravastatin 40 mg tablet 40 mg PO HS 01/30/23 02/17/23 History albuterol sulfate 2.5 mg/0.5 mL 2.5 mg (0.5 mL) inhalation Q8H PRN 02/06/23 02/17/23 Rx solution for nebulization bronchospasm #30 ea furosemide 20 mg tablet (Lasix) 20 mg PO DAILYBL #30 tabs 02/06/23 02/17/23 Rx Past Med/Surg History Medical History (Updated 02/08/23 @ 00:07 by Mark Welch) Acute and chronic respiratory failure with hypoxia Alcohol use Alkalosis, metabolic CAD (coronary artery disease) NSTEMI 2008 - moderate nonobstructive disease, no stenting Carotid stenosis Chronic diastolic (congestive) heart failure Chronic respiratory failure with hypoxia Constipation COPD, group D, by GOLD 2017 classification Diabetes mellitus, type II HLD (hyperlipidemia) HTN (hypertension) Hypothyroid Metastatic lung cancer (metastasis from lung to other site) (12/11/22) Obesity (BMI 30.0-34.9) BHAVIK on CPAP Primary cancer of right lower lobe of lung (01/31/22) s/p radiation Pulmonary hypertension Right lower lobe pneumonia Surgical History S/P cholecystectomy Family History Mother , age 69 Heart disease Rheumatoid arthritis Osteoarthritis Father , age 69 Myocardial infarction Asthma COPD (chronic obstructive pulmonary disease) Sister , age 29 Lung disease Other Diabetes Social History Smoking Status: Never smoker Tobacco Type: Cigarettes Age Started Using Tobacco: 18; Age Quit Using Tobacco: 60; packs per day: 2; Second Hand Exposure: No; Do You Dip or Chew Tobacco: No; Hx Alcohol Use: Yes Alcohol type: beer Alcohol type Comment: 3-5 coors light daily Alcohol Intake Frequency: 4 or More x per/Week Hx Substance Use: No Preferred Language: Macedonian Communication Ability: Effective Underground Bolting Machine Operator Required: No Beliefs That Will Affect Care: None marital status: / Current Living Situation: Alone Current Living Situation Comment: Pt's daughters lives near by current occupational status: retired and disabled 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 [employer] How many Children do You have: 3 Feels Safe at Home: Yes caffeine: Yes (Diet pepsi - 4 cans/day) Assistive Devices: CPAP and Oxygen - Continuous Review of Systems Review of Systems: All systems reviewed & are unremarkable except as noted in HPI & below Physical Exam Physical Exam: Lying in bed with BiPAP and minimally shortness of breath at rest Constitutional: well developed, well nourished, + ill appearing and + obese Eyes: PERRL, conjunctivae normal, anicteric sclerae ENMT: external ear and nose normal, oropharynx normal Neck: trachea midline, no thyromegaly Respiratory: + respiratory distress (Mild to moderate shortness of breath at rest 1 BiPAP) Auscultation: + diminished lung sounds (More on the right base than the left) and + crackles (Bibasally) Cardiovascular: Rate/Rhythm: regular rate and regular rhythm; not tachycardic Heart Sounds: normal S1 and normal S2; no murmur Extremities: + edema (Trace edema bilaterally) Gastrointestinal (Abdomen): Inspection/Auscultation: + abdomen distended and normal bowel sounds Percussion/Palpation: abdomen soft; abdomen nontender Musculoskeletal: No acute arthritis involving any of the joint Neurologic: normal touch/pain/proprioception and moves all extremities; no focal motor deficits Psychiatric: A+Ox3, euthymic affect Lymphatic: no cervical or axillary lymphadenopathy Results & Data Results & Data Vital Signs (Past 12 Hours) Vital Signs Temp Pulse Pulse Resp BP Pulse Ox O2 Del Method 02/17/23 17:20 77 24 92 02/17/23 17:10 76 28 H 92 02/17/23 17:00 75 22 92 02/17/23 16:50 79 19 92 02/17/23 16:40 79 29 H 92 02/17/23 16:30 78 27 H 96 02/17/23 16:20 80 17 89 L 02/17/23 16:10 80 25 H 95 02/17/23 16:00 78 30 H 96 02/17/23 16:00 136/75 02/17/23 15:55 82 29 H 84 L 02/17/23 15:55 130/76 02/17/23 15:54 81 29 H 87 L 02/17/23 16:33 79 27 H 597 H 02/17/23 16:32 79 27 H 92 BiPAP 02/17/23 16:16 79 24 95 Non-rebreather 02/17/23 16:10 79 02/17/23 15:55 80 L Nasal Cannula 02/17/23 16:00 82 24 130/76 95 Non-rebreather 02/17/23 15:59 80 24 83 L Nasal Cannula 02/17/23 15:46 36.6 C 83 28 H 124/67 79 L Nasal Cannula O2 Flow Rate FiO2 02/17/23 17:20 02/17/23 17:10 02/17/23 17:00 02/17/23 16:50 02/17/23 16:40 02/17/23 16:30 02/17/23 16:20 02/17/23 16:10 02/17/23 16:00 02/17/23 16:00 02/17/23 15:55 02/17/23 15:55 02/17/23 15:54 02/17/23 16:33 45 02/17/23 16:32 45 02/17/23 16:16 15 02/17/23 16:10 02/17/23 15:55 4 02/17/23 16:00 15 02/17/23 15:59 3 02/17/23 15:46 4 Laboratory Results Short CBC 02/17/23 Range/Units 16:00 WBC 12.86 H (4.8-10.8) K/ul Hgb 11.7 L (12.0-16.0) g/dl Hct 37.9 (37.0-47.0) % Plt Count 278 (130-400) K/uL BMP 02/17/23 16:00 Sodium 139 Potassium 4.0 Chloride 94 L Carbon Dioxide 36 H BUN 16 Creatinine 0.58 L Glucose 129 H Calcium 9.4 Liver Function 02/17/23 Range/Units 16:00 Total Bilirubin 0.4 (0.2-1.0) mg/dl AST 17 (13-39) U/L ALT 20 (7-52) U/L Alkaline Phosphatase 117 H (34-104) U/L Albumin 4.1 (3.4-5.0) gm/dl Medications Administered Current Inpatient Medications Heparin Sodium (Porcine) (Heparin Sod 5,000 Unit/0.5 Ml Vial) 5,000 units SQ Q12 NABEEL Stop: 03/19/23 20:59 Code Status & VTE Plan VTE Prophylaxis Plan VTE Prophylaxis will be ordered: Yes (4) COPD (chronic obstructive pulmonary disease) COPD type: unspecified COPD Qualified Code(s): J44.9 - Chronic obstructive pulmonary disease, unspecified
[2023-02-17 18:35] LABS: Base Excess ABG 12.7 mEq/L (-9-1.8); HCO3 ABG 39 mmol/L (19-24); Oxygen Saturation ABG 95.9 % (90-95); PCO2 ABG 56 mmHg (35-46); PO2 ABG 75 mmHg (80-95); pH ABG 7.45 (7.35-7.45)
[2023-02-17 18:38] LABS: Allen Test Pos (Pos)
[2023-02-17] MEDS ORDERED: ALBUTEROL HFA 8 GM INHALER INH PRN (19:46)
[2023-02-17] MEDS ORDERED: ALBUTEROL 0.5% NEB SOLN 2.5 MG/0.5 ML VIAL INH PRN (19:46)
[2023-02-17] MEDS: CEFEPIME 2,000 MG in SYRINGE 0 ML IV SCH (21:21)
[2023-02-17] MEDS: HEPARIN SOD 5,000 UNIT/0.5 ML VIAL SQ SCH (21:21)
[2023-02-17] MEDS: METOPROLOL SUCC 25MG EXT REL TAB PO SCH (21:21)
[2023-02-17] MEDS: FUROSEMIDE 40 MG/4 ML VIAL IV SCH (21:21)
[2023-02-17] MEDS: PRAVASTATIN SOD 40 MG TAB PO SCH (21:22)
[2023-02-17] MEDS: DOXYCYCLINE HYCLATE 100 MG in DEXTROSE 5% 100 ML IV SCH (22:12)
[2023-02-18 03:42] LABS: Appearance Urine Clear (Clear); Bilirubin Urine Negative (Negative); Blood Urine Negative (Negative); Color Urine Yellow; Glucose Urine UA Negative (Negative); Ketones Urine Negative (Negative); Leukocyte Esterase Urine Negative (Negative); Nitrite Urine Negative (Negative); Protein Urine Negative (Negative); Specific Gravity Urine 1.016 (1.000-1.030); Urobilinogen Urine Negative (Negative)
[2023-02-18] MEDS: CEFEPIME 2,000 MG in SYRINGE 0 ML IV SCH ×3 (04:58→20:54)
[2023-02-18] MEDS: LEVOTHYROXINE SODIUM 150 MCG TABLET PO SCH (05:57)
[2023-02-18 06:15] LABS: Hematocrit (blood only) 37.3 % (37.0-47.0); Hemoglobin 11.5 g/dl (12.0-16.0); Mean Corpuscular Hemoglobin 28.8 pg (25.0-34.0); Mean Corpuscular Hgb Conc 30.8 g/dL (32.0-36.0); Mean Corpuscular Volume 93.5 fL (80.0-100.0); Mean Platelet Volume 10.1 fL (9.4-12.4); Platelet Count 283 K/uL (130-400); RDW Coefficient of Variation 14.6 % (11.5-14.5); RDW Standard Deviation 50.4 fL (36.4-46.3); Red Blood Count 3.99 M/uL (4.20-5.40); White Blood Count 13.24 K/ul (4.8-10.8)
[2023-02-18 06:34] LABS: Albumin Globulin Ratio 1.1 (0.9-2); BUN Creatinine Ratio 38.5 (10-20); Bilirubin,Total 0.3 mg/dl (0.2-1.0); Calcium 9.1 mg/dl (8.6-10.3); Creatinine Clr Calc Pharmacy 109.8 ml/min; Est GFR (African American) 115.4 ml/min; Est GFR (Non-African American) 99.6 ml/min; Globulin 3.6 gm/dl (2.5-4.0); Magnesium 2.1 mg/dl (1.7-2.4); Phosphorus 3.6 mg/dl (2.5-4.9); Potassium 4.8 mmol/L (3.5-5.1); Total Protein 7.6 gm/dl (6.0-8.3)
[2023-02-18 06:38] LABS: Basophils # (auto) 0.04 K/uL (0-0.2); Basophils % (auto) 0.3 %; Eosinophils # (auto) 0.01 K/uL (0-0.50); Eosinophils % (auto) 0.1 %; Immature Granulocytes # (auto) 0.14 K/uL (0.01-0.20); Immature Granulocytes % (auto) 1.1 %; Lymphocytes # (auto) 0.63 K/uL (1.2-3.4); Lymphocytes % (auto) 4.8 %; Monocytes # (auto) 0.46 K/uL (0.11-0.59); Monocytes % (auto) 3.5 %; Neutrophils # (auto) 11.96 K/uL (1.40-6.50); Neutrophils % (auto) 90.2 %; Polychromasia 1+
[2023-02-18] MEDS ORDERED: POLYETHYLENE (MIRALAX) 17 GM PACK PO PRN (08:04)
[2023-02-18] MEDS ORDERED: MAGNESIUM HYDROXIDE SUSP 30 ML UDC PO PRN (08:04)
[2023-02-18] MEDS ORDERED: ALUMINUM/MAGNESIUM SUSP 30 ML UDC PO PRN (08:04)
[2023-02-18] MEDS: METOPROLOL SUCC 25MG EXT REL TAB PO SCH ×2 (08:26→20:53)
[2023-02-18] MEDS: amLODIPine BESYLATE 5 MG TAB PO SCH (08:27)
[2023-02-18] MEDS: ASPIRIN 81 MG ECTAB PO SCH (08:27)
[2023-02-18] MEDS: EZETIMIBE 10 MG TABLET PO SCH (08:27)
[2023-02-18] MEDS: POTASSIUM CHLORIDE 10 MEQ TABCR PO SCH (08:27)
[2023-02-18] MEDS: FUROSEMIDE 40 MG/4 ML VIAL IV SCH (08:28)
[2023-02-18] MEDS: FLUTICASONE FUROATE 100MCG 14 PUFFS/INHALER INH SCH (08:28)
[2023-02-18] MEDS: DOXYCYCLINE HYCLATE 100 MG in DEXTROSE 5% 100 ML IV SCH ×2 (08:31→20:54)
--- NOTE | 2023-02-18 08:49 | Pulmonary Consultation ---
Date of Consultation February 18, 2023 Assessment & Plan (1) Acute and chronic respiratory failure with hypercapnia: IMPRESSION: 68-year-old female with overlap syndrome (obstructive lung disease/sleep disordered breathing) on CPAP presenting with acute on chronic hypoxic respiratory failure. Patient with underlying metastatic adenocarcinoma. She has yet to undergo chemotherapy or immunotherapy. She presents today with recurrent RIGHT-sided pleural effusion and worsening hypoxia. Patient presents again with similar symptoms of hypoxia in the setting of worsening RIGHT-sided pleural effusion. Effusion represents malignant pleural effusion from known underlying metastatic adenocarcinoma. She has had tho racentesis performed as well as subsequent pigtail catheter placement with drainage of fluid. Patient warrants Pleurx catheter placement at this time. She is agreeable to procedure. Otherwise, she is back to her baseline oxygen requirement. She will receive clinical benefit as she has had before after placement. Continue with home nebulizers and inhalers as previously prescribed. (2) Malignant pleural effusion: As per above and recent hospitalizations. Patient will benefit from Pleurx catheter placement moving forward. (3) COPD (chronic obstructive pulmonary disease): Continue with current inhaler therapy. Patient is not bronchospastic on exam today. This has been consistent with her prior admissions as well. COPD type: unspecified COPD Qualified Code(s): J44.9 - Chronic obstructive pulmonary disease, unspecified (4) Metastatic lung cancer (metastasis from lung to other site): Patient has an appointment next week with Dr. Redmond to finalize her treatment moving forward. Hopefully the PleurX placement will help keep her out of the hospital so she can undergo treatments as outlined by oncology. Laterality: unspecified laterality Qualified Code(s): C34.90 - Malignant neoplasm of unspecified part of unspecified bronchus or lung (5) Primary cancer of right lower lobe of lung: Patient has large lesion to the RIGHT lower lobe which is likely what is being considered pneumonia process. She has been on multiple antibiotics in the past. Uncertain of the utility of antibiotics as this is likely more high school admissions representative of pulmonary mass with effusion. History of Present Illness Reason for Consultation: Recurrent pleural effusion. ?pleurx catheter Requesting Physician: Dr. Zimmer Attending Physician: Arnulfo Zimmer MD History of Present Illness Patient is a 68-year-old female with a significant past medical history of hypothyroidism, hyperlipidemia, carotid stenosis, coronary artery disease, obesity, diabetes, COPD, hypertension, obstructive sleep apnea, CHF, chronic hypoxic respiratory failure on 4 L nasal cannula, and metastatic lung cancer. Patient has been admitted to this institution multiple times over the last year with recurrent malignant pleural effusion to the RIGHT-sided lung field. She reports that she had worsening shortness of breath this weekend, but her symptoms progressively worsened yesterday. She presented to the emergency department and required high levels of oxygen as well as BiPAP. She was diuresed and treated with antibiotics. Chest x-ray concerning for reaccumulation of RIGHT-sided pleural fluid. During recent hospitalizations, the patient had undergone liver biopsy which confirmed diagnosis of metastatic adenocarcinoma consistent with primary lung disease. She follows with Dr. Redmond, however therapy has not been instituted at this point. She does report that she was able to follow-up with her new escrow secretary after her last discharge. During previous hospitalization, the patient had undergone no catheter placement with drainage of effusion. She reports that she did talk to her escrow secretary and he concurred that she would likely require Pleurx catheter placement. Allergies Allergy/AdvReac Type Severity Reaction Status Date / Time tetracycline AdvReac Mild HEADACHE Verified 02/17/23 17:37 Home Medications Medication Instructions Recorded Confirmed Type aspirin 81 mg tablet,delayed 81 mg PO QAM 01/13/19 02/17/23 History release furosemide 40 mg tablet (Lasix) 40 mg PO QAM #30 tabs 01/16/19 02/17/23 Rx Black Elderberry 1 tab PO QAM 03/18/21 02/17/23 History amlodipine 2.5 mg tablet 2.5 mg PO DAILY 03/18/21 02/17/23 History ezetimibe 10 mg tablet 10 mg PO DAILY 03/18/21 02/17/23 History metformin 500 mg tablet 500 mg PO BIDM 03/18/21 02/17/23 History albuterol sulfate 90 mcg/actuation 2 puff inhalation Q4 PRN Wheezing 03/19/22 02/17/23 History aerosol inhaler (Ventolin HFA) levothyroxine 150 mcg tablet 150 mcg PO QAM 10/24/22 02/17/23 History turmeric 400 mg capsule 400 mg PO DAILY 10/24/22 02/17/23 History potassium chloride 10 mEq 10 meq PO DAILY #30 tabs 10/30/22 02/17/23 Rx tablet,extended release metoprolol succinate 25 mg 12.5 mg PO BID 12/02/22 02/17/23 History tablet,extended release 24 hr fluticasone fur. 100 mcg-umeclid 1 inh inhalation DAILY 01/03/23 02/17/23 History 62.5 mcg-vilant 25 mcg inhalat.powder (Trelegy Ellipta) pravastatin 40 mg tablet 40 mg PO HS 01/30/23 02/17/23 History albuterol sulfate 2.5 mg/0.5 mL 2.5 mg (0.5 mL) inhalation Q8H PRN 02/06/23 02/17/23 Rx solution for nebulization bronchospasm #30 ea furosemide 20 mg tablet (Lasix) 20 mg PO DAILYBL #30 tabs 02/06/23 02/17/23 Rx Patient History Medical History Acute and chronic respiratory failure with hypoxia Alcohol use Alkalosis, metabolic CAD (coronary artery disease) NSTEMI 2008 - moderate nonobstructive disease, no stenting Carotid stenosis Chronic diastolic (congestive) heart failure Chronic respiratory failure with hypoxia Constipation COPD, group D, by GOLD 2017 classification Diabetes mellitus, type II HLD (hyperlipidemia) HTN (hypertension) Hypothyroid Metastatic lung cancer (metastasis from lung to other site) (12/11/22) Obesity (BMI 30.0-34.9) BHAVIK on CPAP Primary cancer of right lower lobe of lung (01/31/22) s/p radiation Pulmonary hypertension Right lower lobe pneumonia Surgical History S/P cholecystectomy Family History Mother , age 69 Heart disease Rheumatoid arthritis Osteoarthritis Father , age 69 Myocardial infarction Asthma COPD (chronic obstructive pulmonary disease) Sister , age 29 Lung disease Other Diabetes Social History Smoking Status: Former smoker Tobacco Type: Cigarettes Age Started Using Tobacco: 18; Age Quit Using Tobacco: 60; packs per day: 2; Second Hand Exposure: No; Do You Dip or Chew Tobacco: No; Hx Alcohol Use: Yes Alcohol type: beer Alcohol type Comment: 3-5 coors light daily Alcohol Intake Frequency: 4 or More x per/Week Hx Substance Use: No Preferred Language: Portuguese Communication Ability: Effective Senior Information Security Architect Required: No Beliefs That Will Affect Care: None marital status: / Current Living Situation: Alone Current Living Situation Comment: Pt's daughters lives near by current occupational status: retired and disabled 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 All else were negative. Physical Exam Physical Exam: VITAL SIGNS - Vital signs and nursing notes were reviewed. GENERAL - 68-year-old female appearing her stated age who is in no acute distress. Communicates well with provider and answers questions appropriately. LUNGS - Auscultation reveals Diminished breath sounds at the bilateral bases. CARDIAC - RRR with S1/S2. No murmur, rubs, or gallops appreciated. EXTREMITIES - No pretibial edema present. +3/5 radial palpated throughout. PSYCH - A&Ox3 and cooperates fully with examiner. Pt is very pleasant and interacts well with examiner. Results & Data Results & Data Vital Signs (Past 12 Hours) Vital Signs Temp Pulse Pulse Resp BP Pulse Ox O2 Del Method 02/18/23 07:27 36.8 C 105 H 19 164/98 H 94 Room Air 02/18/23 07:18 65 02/18/23 07:12 36.2 C L 64 20 125/75 94 High Flow Nasal Cannula 02/18/23 04:52 36.4 C L 66 18 117/73 95 Nasal Cannula 02/17/23 23:42 81 02/17/23 23:38 36.8 C 80 18 124/70 92 Nasal Cannula 02/17/23 23:01 High Flow Nasal Cannula O2 Flow Rate 02/18/23 07:27 02/18/23 07:18 02/18/23 07:12 7 02/18/23 04:52 3 02/17/23 23:42 02/17/23 23:38 10 02/17/23 23:01 8 PG Care Time/CCT Total # of Minutes Spent Total Time Spent with Patient: Total time spent is greater than 50% in coordination of care (as documented) at patient's floor/unit and/or counseling patient: Coding Level of Care Code 96169 INT INP/OBS CARE 3/75MIN Diagnoses Acute and chronic respiratory failure with hypercapnia J96.22 Malignant pleural effusion J91.0 COPD (chronic obstructive pulmonary disease) J44.9 COPD type: unspecified COPD Metastatic lung cancer (metastasis from lung to other site) C34.90 Laterality: unspecified laterality Primary cancer of right lower lobe of lung C34.31
[2023-02-18] MEDS ORDERED: NON-FORMULARY MEDICATION (Fluticasone-Umeclidin-Vilanter [Trelegy Ellipta] 100-62.5-25 mcg INH SCH (09:00)
[2023-02-18] MEDS ORDERED: UMECLIDINIUM/VILANTEROL 62.5/25MCG 7 PUFFS/INHALER INH SCH (09:00)
--- NOTE | 2023-02-18 09:56 | Palliative Care Consultation ---
Date of Consultation February 18, 2023 Assessment & Plan (1) Palliative care by specialist: Met with pt, reviewed overview of Palliative Medicine, a subspecialty that provides specialized medical care for people living with a serious illness by offering a focus on quality of life. There is strong evidence supporting the initiation of Palliative Care into the management of this patient with advanced met lung cancer; palliative care, when provided alongside oncologic care, leads to improved QOL, fewer depressive symptoms, better prognosis understanding and longer median survival carlos when given the overall poor prognosis and QOL issues at hand. (Tereza et al. (2010). Early palliative care for patients with metastatic sjl-zugrx-nryf lung cancer. [place] J [facility] Med 363(1), 733-742. Doi: [id number].) We discussed that cancer patients experience significant symptom and psychosocial burden for which the early integration of supportive oncology with palliative medicine (early findings from the research of Tereza and Willie) help address a growing need to manage patients comprehensively, with an emphasis on symptom control, nutritional and psychosocial support, and pharmaceutical review. Palliative care consultation in patients with advanced cancer is not only associated with an improvement in the quality of oncology care, but also a reduction in downstream healthcare utilization. In Jones et al 2017, when the automatic palliative medicine consult was triggered by specific oncology criteria, 30-day readmission rates and use of chemotherapy after discharge declined, whereas hospice referrals and uptake of support services post-disch arge increased. Patients with advanced cancer admitted to an acute care hospital often have short life expectancies and high morbidity - for these patients, the integration of palliative care has improved symptom burden, reduced patient and caregiver distress, increased referral to hospice, and improved outcomes. Palliative Medicine is often conflated with hospice: I advised patient/family that Palliative and hospice can be partners but we are not the same. It is important to understand the difference so that we may be informed, and not afraid. Palliative Medicine works to improve QOL through reduction of symptom burden/more control over their illness, for both the patient and family. Palliative medicine clinicians are board certified, specially-trained and another member of the patient's medical care team. We often provide an extra layer of support because our care is based on the needs of the patient, not the prognosis; as such, it's appropriate at any age/advancing stage of a serious illness and can be provided along with curative treatment. Palliative Medicine clinicians are also trained in advanced communication methodologies, to facilitate complex discussions about advanced illness planning, which are needed to help assure that the treatment choices match the patient's goals, aka delivering Goal Concordant care. Finally, we discussed that hospice is a visiting nurse service that focuses on care delivered at the very end of life for patients with terminal illness, with life expectancy less than 6 month. (2) Advanced care planning/counseling discussion: face to face w/pt x 45min to review ACP/goals of care. she wants pleura then keytruda - plans to keep appt w/onc next week - Dr. Redmond she perceives her cancer is curable and wants 'to do everything I can to cure it.' has continued trouble connecting frequency of readmission, recurrent effusions as sign of cancer complications. wants full code - feels this is needed to assure cancer care continues information processing seems limited but does better when information is provided in succinct, simple language tells me about needing more help with getting resources and dme - needs an electric wheelchair that folds bc she's on her own for some cancer clinic appointments and can't tolerate the walk from main entrance to chemo clinic. also notes financial struggles - still awaiting auth for albuterol, >10 days / cannot afford self pay. (3) Dyspnea and respiratory abnormalities: (4) Metastatic lung cancer (metastasis from lung to other site): Laterality: unspecified laterality Qualified Code(s): C34.90 - Malignant neoplasm of unspecified part of unspecified bronchus or lung (5) Acute and chronic respiratory failure with hypercapnia: (6) Malignant pleural effusion: (7) Pleural effusion, right: (8) COPD (chronic obstructive pulmonary disease): (9) Primary cancer of right lower lobe of lung: (10) BHAVIK on CPAP: (11) COPD, group D, by GOLD 2017 classification: Plan Will remain full code for pleurx today. anxious to start cancer rx w/keytruda needs cancer navigator assistance for med copay's & dme needs - will cc note to them for early integration. she would like outpt pall med follow up - I will see her in my oncology-pall clinic. psychosocial support & reassurance provided her insight & health literacy are low she will benefit from MDT oncology education/reinforcement. I updated primary team. Thank you for allowing us to participate in the ongoing care of this patient. Please don't hesitate to call or page with any additional concerns. Dr. Charisma Hartmann DNP Director, Palliative Care History of Present Illness Reason for Consultation: stage 4 lung ca, recurrent hospitalizations Attending Physician: Arnulfo Zimmer MD History of Present Illness Summer is well known to me from prior admission, with us recurrent effusions d/t met lung ca. she has a confirmed diagnosis of metastatic adenocarcinoma of the lung w/mets to bone and liver early (January 2023.) She's had numerous admissions for the same reasons , complicated further by smoking related copd & hypox resp failure. during our prior consult she did not want to discuss ACP or GOC she wished to remain full code and did not demonstrate a clear understanding of or insight into her cancer. Allergies Allergy/AdvReac Type Severity Reaction Status Date / Time tetracycline AdvReac Mild HEADACHE Verified 02/17/23 17:37 Home Medications Medication Instructions Recorded Confirmed Type aspirin 81 mg tablet,delayed 81 mg PO QAM 01/13/19 02/17/23 History release furosemide 40 mg tablet (Lasix) 40 mg PO QAM #30 tabs 01/16/19 02/17/23 Rx Black Elderberry 1 tab PO QAM 03/18/21 02/17/23 History amlodipine 2.5 mg tablet 2.5 mg PO DAILY 03/18/21 02/17/23 History ezetimibe 10 mg tablet 10 mg PO DAILY 03/18/21 02/17/23 History metformin 500 mg tablet 500 mg PO BIDM 03/18/21 02/17/23 History albuterol sulfate 90 mcg/actuation 2 puff inhalation Q4 PRN Wheezing 03/19/22 02/17/23 History aerosol inhaler (Ventolin HFA) levothyroxine 150 mcg tablet 150 mcg PO QAM 10/24/22 02/17/23 History turmeric 400 mg capsule 400 mg PO DAILY 10/24/22 02/17/23 History potassium chloride 10 mEq 10 meq PO DAILY #30 tabs 10/30/22 02/17/23 Rx tablet,extended release metoprolol succinate 25 mg 12.5 mg PO BID 12/02/22 02/17/23 History tablet,extended release 24 hr fluticasone fur. 100 mcg-umeclid 1 inh inhalation DAILY 01/03/23 02/17/23 History 62.5 mcg-vilant 25 mcg inhalat.powder (Trelegy Ellipta) pravastatin 40 mg tablet 40 mg PO HS 01/30/23 02/17/23 History albuterol sulfate 2.5 mg/0.5 mL 2.5 mg (0.5 mL) inhalation Q8H PRN 02/06/23 02/17/23 Rx solution for nebulization bronchospasm #30 ea furosemide 20 mg tablet (Lasix) 20 mg PO DAILYBL #30 tabs 02/06/23 02/17/23 Rx Patient History Medical History (Updated 02/19/23 @ 00:45 by Charisma Hartmann, GALDINO) Acute and chronic respiratory failure with hypoxia Alcohol use Alkalosis, metabolic CAD (coronary artery disease) NSTEMI 2008 - moderate nonobstructive disease, no stenting Carotid stenosis Chronic diastolic (congestive) heart failure Chronic respiratory failure with hypoxia Constipation COPD, group D, by GOLD 2017 classification Diabetes mellitus, type II HLD (hyperlipidemia) HTN (hypertension) Hypothyroid Metastatic lung cancer (metastasis from lung to other site) (12/11/22) Obesity (BMI 30.0-34.9) BHAVIK on CPAP Primary cancer of right lower lobe of lung (01/31/22) s/p radiation Pulmonary hypertension Right lower lobe pneumonia Surgical History S/P cholecystectomy Family History Mother , age 69 Heart disease Rheumatoid arthritis Osteoarthritis Father , age 69 Myocardial infarction Asthma COPD (chronic obstructive pulmonary disease) Sister , age 29 Lung disease Other Diabetes Social History Smoking Status: Former smoker Tobacco Type: Cigarettes Age Started Using Tobacco: 18; Age Quit Using Tobacco: 60; packs per day: 2; Second Hand Exposure: No; Do You Dip or Chew Tobacco: No; Hx Alcohol Use: Yes Alcohol type: beer Alcohol type Comment: 3-5 coors light daily Alcohol Intake Frequency: 4 or More x per/Week Hx Substance Use: No Preferred Language: Hungarian Communication Ability: Effective Talent Acquisition Partner Required: No Beliefs That Will Affect Care: None marital status: / Current Living Situation: Alone Current Living Situation Comment: Pt's daughters lives near by current occupational status: retired and disabled 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 [employer] How many Children do You have: 3 Feels Safe at Home: Yes Safety Concerns: Feels Safe At This Time caffeine: Yes (Diet pepsi - 4 cans/day) Assistive Devices: Oxygen - Continuous Review of Systems Constitutional: + fatigue Eyes: + dry eyes Ear, Nose, Mouth, Throat: + snoring, + dry mouth, + dental caries and + loose teeth Respiratory: + cough, + change in sputum, + dyspnea, + dyspnea on exertion and + snoring (+pap) Cardiovascular: + dyspnea and + palpitations; no orthopnea Gastrointestinal: + belching and + heartburn Genitourinary: + nocturia Musculoskeletal: + stiffness, + limited range of motion, + muscle weakness and + muscle atrophy Integumentary: no dry skin Neurologic: + generalized weakness Psychiatric: + depression Hematologic / Lymphatic: + easy bruising and + lymphadenopathy Physical Exam Constitutional: + ill appearing and cooperative; not obese Eyes: PERRL, conjunctivae normal, anicteric sclerae ENMT: Nose: + dry nasal mucous membranes Mouth: + poor dentition Neck: trachea midline, no thyromegaly Respiratory: normal respiratory effort (at rest) and + cough (intermittent & dry) conversational dyspnea Cardiovascular: RRR, no murmur, no edema Gastrointestinal (Abdomen): normal bowel sounds, soft, nontender, no hepatosplenomegaly Musculoskeletal: Gait: + antalgic gait generalized weakness , dyspnea with minimal exertion Skin: pale, warm; dry Neurologic: PERRL, EOMI, accommodation nl, no face palsy, no dysarthria Psychiatric: Thought Process: + circumstantial thought process Thought Content: + thought insertion Cognition: recent memory grossly intact, remote memory grossly intact and language grossly intact Estimated Intelligence: average estimated intelligence Insight: + limited insight Judgment: good judgement Results & Data Vital Signs (Past 12 Hours) Vital Signs Temp Pulse Pulse Resp BP Pulse Ox O2 Del Method 02/18/23 07:27 36.8 C 105 H 19 164/98 H 94 Room Air 02/18/23 07:18 65 02/18/23 07:12 36.2 C L 64 20 125/75 94 High Flow Nasal Cannula 02/18/23 04:52 36.4 C L 66 18 117/73 95 Nasal Cannula 02/17/23 23:42 81 02/17/23 23:38 36.8 C 80 18 124/70 92 Nasal Cannula 02/17/23 23:01 High Flow Nasal Cannula O2 Flow Rate 02/18/23 07:27 02/18/23 07:18 02/18/23 07:12 7 02/18/23 04:52 3 02/17/23 23:42 02/17/23 23:38 10 02/17/23 23:01 8 Laboratory Results data reviewed Diagnostic Findings data reviewed PG Care Time/CCT Total # of Minutes Spent Total Time Spent: 90 Total Time Spent with Patient: Total time spent is greater than 50% in coordination of care (as documented) at patient's floor/unit and/or counseling patient: I spent 90minutes overall addressing this case: 10 in medical data review/discussion with referring provider(s) and/or preparation for the visit 15 in direct interaction with the patient 45 Advance Care Planning/Goals of Care discussions as detailed above in note (must be >16min) 10 in subsequent review and synthesis of assessment and plan 10 in communicating with other providers regarding the patient's case: [] Prolonged Care Time Prolonged Care Time: Yes Advanced Care Planning 34000 Advanced Care Planning 30 Min 88963 Advanced Care Planning Additional 30 [place] [address] IN/OBS CONSULT LVL 5,80M Patient Type New History Comprehensive Exam Comprehensive Medical Decision Making High Complexity Diagnoses Palliative care by specialist Z51.5 Advanced care planning/counseling discussion Z71.89 Dyspnea and respiratory abnormalities R06.00; R06.89 Metastatic lung cancer (metastasis from lung to other site) C34.90 Laterality: unspecified laterality Acute and chronic respiratory failure with hypercapnia J96.22 Malignant pleural effusion J91.0 Pleural effusion, right J90 COPD (chronic obstructive pulmonary disease) J44.9 Primary cancer of right lower lobe of lung C34.31 BHAVIK on CPAP G47.33; Z99.89 COPD, group D, by GOLD 2017 classification J44.9 Additional Codes Advanced Care Planning - 52635 Advanced Care Planning 30 Min: 50346 Advanced Care Planning 30 Min ([id number]) Advanced Care Planning - 91185 Advanced Care Planning Additional 30 Min: 06184 Advanced Care Planning Additional 30 Min ([id number]) Prolonged Care Time - Prolonged Care Time: Yes ([id number])
[2023-02-18 10:39] LABS: Prothrombin Time 11.1 Seconds (9.0-12.0)
[2023-02-18] MEDS: ALBUT/IPRATROP 3MG/0.5MG NEB 3 ML VIAL NEB SCH ×3 (11:10→19:17)
[2023-02-18] MEDS ORDERED: LIDOCAINE 1% LOCAL 20 ML VIAL INJ ONE (14:25)
--- NOTE | 2023-02-18 15:05 | Procedure Note ---
Procedure Note Date of Service February 18, 2023 Note PREOPERATIVE DIAGNOSIS: Recurrent malignant right pleural effusion. POSTOPERATIVE DIAGNOSIS: Recurrent malignant right pleural effusion. PROCEDURE PERFORMED: Right PleurX catheter placement. ANESTHESIA: [Local lidocaine given (15 ml)] COMPLICATIONS: None. Written consent was obtained and placed on the chart. Timeout was done prior to the procedure. INDICATION FOR PROCEDURE: The patient is a 68-year-old male with a complex past medical history, most pertinent for metastatic lung cancer. The patient has developed a recurrent right pleural effusion. In an effort to palliate her respiratory symptoms, the patient was referred for a PleurX catheter placement for home drainage. The patient and her family understood the risks and possible complications of the procedure and wished to proceed. OPERATIVE FINDINGS: The right chest was opacified on preoperative chest x-ray, and 800 ml of serous fluid was withdrawn before clamping the drainage tube. There were no bleeding complications, and the fluid was not blood tinged. DESCRIPTION OF PROCEDURE: The patient was placed in a semirecumbent position. I evaluated the right pleura with the ultrasound and located an adequate spot insert the finder needle to inject lidocaine and aspirate pleural fluid. The right chest and upper abdomen were prepped and draped in the usual sterile fashion. Lidocaine 1% was used to infiltrate two areas; one in the right upper quadrant where the tube would exit and the other along the anterior axillary line in the seventh intercostal space. A small counterincision was made in the right upper quadrant area. Through the anterior axillary line area, the pleural space was accessed by Seldinger technique. The counterincision was made around the guidewire and then the PleurX catheter was tunneled from the right upper quadrant small incision to the one overlying the ribs. A sheath introducer was then passed over the wire and then the PleurX catheter was placed through the sheath introducer. There was good return of fluid. 800 ml of serous fluid was withdrawn slowly as the small counterincision was closed with Monocryl stitch. The catheter was capped off, and sterile dressings were applied. The patient tolerated the procedure well without any complications. Post chest x-ray demonstrated adequate placement of the catheter with no significant pneumothorax. Coding CPT Codes Pulmonary/Thoracic - Pulmonary and Thoracic: 76892 Insert pleural cathereter w/cuff ([id number]) [facility] [place] Procedure Codes (Charges) Pulmonary/Thoracic Procedure 1: Pulmonary and Thoracic: 60549 Insert pleural cathereter w/cuff
--- NOTE | 2023-02-18 15:58 | XRay Report ---
XR chest 1V portable CLINICAL HISTORY: s/p right pleurx TECHNIQUE: Single frontal radiograph of the chest was obtained. Comparison: Comparison is made to chest radiograph 02/17/2023 FINDINGS: Interval placement of a right pleural catheter. Cardiomegaly is noted. The aortic arch is calcified. Right lower lung airspace opacity is noted. There is a [id number] right pleural effusion. IMPRESSION: 1. Small moderate right pleural effusion has improved from prior exam status post placement of a ple ural catheter. No pneumothorax is seen. 2. Right lower lung airspace opacity has improved from prior exam likely representing atelectasis. ACT 112: Negative or not required by law. Electronically signed by: Marco A Dozier M.D. 02/18/2023 3:57 PM
--- NOTE | 2023-02-18 16:24 | Hospitalist Progress Note ---
Date of Service February 18, 2023 Assessment & Plan (1) Acute on chronic respiratory failure with hypoxia: (2) COPD (chronic obstructive pulmonary disease): (3) Malignant pleural effusion: (4) Metastatic lung cancer (metastasis from lung to other site): Plan: 67-year-old female presents with shortness of breath. New diagnosis of metastatic adenocarcinoma of the lung with mets mets to bone and liver early January 2023. Multiple admission in the last month due to acute hypoxic respiratory failure. She had undergone repeated thoracentesis for right-sided malignant pleural effusion. Chest x-ray on admission personally reviewed; increase in pleural effusion on left side compared to previous day Cytology from last admissions thoracentesis showed metastatic adenocarcinoma of pulmonary origin. Consulted pulmonology; patient will likely need Pleurx catheter placement due to recurrent malignant pleural effusion Continue on IV Lasix 40 mg once a day. Currently on antibiotics; will obtain Pro-Matt. Right lower lobe consolidation likely due to malignancy. Just completed antibiotic course Patient to follow-up outpatient with radiation oncology and oncology next week. Wean off oxygen as tolerated; she is at 4 L of oxygen at baseline Continue home inhalers for COPD. Not on acute exacerbation for now. (5) BHAVIK on CPAP: Plan: Continue CPAP at night and sleeping during the day (6) HTN (hypertension): Plan: We will continue her usual blood pressure medications (7) Diabetes mellitus, type II: Plan: Hold metformin Blood sugar ACHS and SSI (8) CAD (coronary artery disease): Plan: No acute issue. Continue on aspirin (9) HLD (hyperlipidemia): Plan: Continue on Zetia, pravastatin (10) Hypothyroid: Plan: Continue home levothyroxine DVT prophylaxis Heparin CODE STATUS Full Plan Time spent evaluating patient, direct bedside care, chart review, placing orders, interpretation of diagnostic studies, discussion with consultants, patient, and family members, as well as other required patient management activities is 60 minutes. Please note the above document was generated using voice recognition software. It may contain grammatical, syntax or spelling errors. Any formal questions or concerns about the content, text or information contained within the body of this dictation should be directly addressed to the provider for clarification Admission and Anticipated Discharge Date Admission Date: February 17, 2023 Subjective Patient seen and examined at bedside. She reports that her breathing is slightly better compared to yesterday. She is requiring 7 L of oxygen by nasal cannula to maintain saturation. Afebrile, hemodynamically stable. Review of Systems Review of Systems: All systems reviewed & are unremarkable except as noted in Subjective Physical Exam Physical Exam: Constitutional: WD/WN, vitals as above, NAD, sitting up in bed, pleasant, conversing easily Respiratory: Decreased breath sound at right lower base. Cardiovascular: RRR, no murmur, no edema Vessels: no JVD or carotid bruit Chest: normal inspection of chest Abdomen: normal bowel sounds, soft, nontender, no hepatosplenomegaly Musculoskeletal: no cyanosis or clubbing, extremities motor strength 5/5 Skin: no rashes, warm and dry normal turgor Neurologic: PERRL, EOMI, accommodation nl, no face palsy, no dysarthria CN's II- XI intact bilaterally and moves all extremities Psychiatric: A+Ox3, euthymic affect Lymphatic: no cervical or axillary lymphadenopathy : deferred Results & Data Results & Data Vital Signs (Past 12 Hours) Vital Signs Temp Pulse Pulse Resp BP Pulse Ox O2 Del Method 02/18/23 15:59 36.4 C L 69 18 99/60 L 92 Nasal Cannula 02/18/23 15:02 77 19 91 Nasal Cannula 02/18/23 12:06 36.6 C 68 20 125/75 92 Nasal Cannula 02/18/23 11:10 80 18 95 CPAP 02/18/23 08:30 High Flow Nasal Cannula 02/18/23 07:27 36.8 C 105 H 19 164/98 H 94 Room Air 02/18/23 07:18 65 02/18/23 07:12 36.2 C L 64 20 125/75 94 High Flow Nasal Cannula 02/18/23 04:52 36.4 C L 66 18 117/73 95 Nasal Cannula O2 Flow Rate 02/18/23 15:59 7 02/18/23 15:02 7 02/18/23 12:06 7 02/18/23 11:10 02/18/23 08:30 7 02/18/23 07:27 02/18/23 07:18 02/18/23 07:12 7 02/18/23 04:52 3 Laboratory Results Laboratory Results WBC 13.24 K/ul (4.8-10.8) H 02/18/23 05:50 RBC 3.99 M/uL (4.20-5.40) L 02/18/23 05:50 Hgb 11.5 g/dl (12.0-16.0) L 02/18/23 05:50 Hct 37.3 % (37.0-47.0) 02/18/23 05:50 MCV 93.5 fL (80.0-100.0) 02/18/23 05:50 MCH 28.8 pg (25.0-34.0) 02/18/23 05:50 MCHC 30.8 g/dL (32.0-36.0) L 02/18/23 05:50 RDW Std Deviation 50.4 fL (36.4-46.3) H 02/18/23 05:50 RDW Coeff of Naa 14.6 % (11.5-14.5) H 02/18/23 05:50 Plt Count 283 K/uL (130-400) 02/18/23 05:50 MPV 10.1 fL (9.4-12.4) 02/18/23 05:50 Immature Gran % (Auto) 1.1 % 02/18/23 05:50 Neut % (Auto) 90.2 % 02/18/23 05:50 Lymph % (Auto) 4.8 % 02/18/23 05:50 [place] % (Auto) 3.5 % 02/18/23 05:50 Eos % (Auto) 0.1 % 02/18/23 05:50 Baso % (Auto) 0.3 % 02/18/23 05:50 Neut # (Auto) 11.96 K/uL (1.40-6.50) H 02/18/23 05:50 Lymph # (Auto) 0.63 K/uL (1.2-3.4) L 02/18/23 05:50 [place] # (Auto) 0.46 K/uL (0.11-0.59) 02/18/23 05:50 Eos # (Auto) 0.01 K/uL (0-0.50) 02/18/23 05:50 Baso # (Auto) 0.04 K/uL (0-0.2) 02/18/23 05:50 Immature Gran # (Auto) 0.14 K/uL (0.01-0.20) 02/18/23 05:50 Polychromasia 1+ 02/18/23 05:50 PT 11.1 Seconds (9.0-12.0) 02/18/23 09:39 INR 1.0 (0.9-1.1) 02/18/23 09:39 ABG pH 7.45 (7.35-7.45) 02/17/23 18:29 ABG pCO2 56 mmHg (35-46) H 02/17/23 18:29 ABG pO2 75 mmHg (80-95) L 02/17/23 18:29 ABG HCO3 39 mmol/L (19-24) H 02/17/23 18:29 ABG O2 Saturation 95.9 % (90-95) H 02/17/23 18:29 ABG Base Excess 12.7 mEq/L (-9-1.8) H 02/17/23 18:29 Christian Test Pos (Pos) 02/17/23 18:29 VBG pH 7.44 (7.36-7.41) H 02/17/23 17:21 VBG pCO2 57 mmHg (38-50) H 02/17/23 17:21 VBG pO2 124 mmHg 02/17/23 17:21 VBG HCO3 39 mmol/L 02/17/23 17:21 VBG O2 Saturation 98.4 % 02/17/23 17:21 VBG Base Excess 12.1 mEq/L 02/17/23 17:21 Oxygen Given BIPAP 02/17/23 18:29 Sodium 136 mmol/L (136-145) 02/18/23 05:50 Potassium 4.8 mmol/L (3.5-5.1) 02/18/23 05:50 Chloride 93 mmol/L (98-107) L 02/18/23 05:50 Carbon Dioxide 37 mmol/L (21-32) H 02/18/23 05:50 Anion Gap 6 (3-11) 02/18/23 05:50 BUN 20 mg/dl (6-23) 02/18/23 05:50 Creatinine 0.52 mg/dl (0.6-1.2) L 02/18/23 05:50 Est Cr Clr Drug Dosing 109.8 ml/min 02/18/23 05:50 Est GFR ( Amer) 115.4 ml/min 02/18/23 05:50 Est GFR (Non-Af Amer) 99.6 ml/min 02/18/23 05:50 BUN/Creatinine Ratio 38.5 (10-20) H 02/18/23 05:50 Glucose 135 mg/dl (70-99(Fasting)) H 02/18/23 05:50 Calcium 9.1 mg/dl (8.6-10.3) 02/18/23 05:50 Phosphorus 3.6 mg/dl (2.5-4.9) 02/18/23 05:50 Magnesium 2.1 mg/dl (1.7-2.4) 02/18/23 05:50 Total Bilirubin 0.3 mg/dl (0.2-1.0) 02/18/23 05:50 AST 14 U/L (13-39) 02/18/23 05:50 ALT 19 U/L (7-52) 02/18/23 05:50 Alkaline Phosphatase 107 U/L (34-104) H 02/18/23 05:50 Troponin I High Sens 5.7 pg/ml (0-14) 02/17/23 16:00 Total Protein 7.6 gm/dl (6.0-8.3) 02/18/23 05:50 Albumin 4.0 gm/dl (3.4-5.0) 02/18/23 05:50 Globulin 3.6 gm/dl (2.5-4.0) 02/18/23 05:50 Albumin/Globulin Ratio 1.1 (0.9-2) 02/18/23 05:50 Urine Color Yellow 02/18/23 Unknown Urine Appearance Clear (Clear) 02/18/23 Unknown Urine pH 5.0 (4.5-7.5) 02/18/23 Unknown Ur Specific [place] 1.016 (1.000-1.030) 02/18/23 Unknown Urine Protein Negative (Negative) 02/18/23 Unknown Urine Glucose (UA) Negative (Negative) 02/18/23 Unknown Urine Ketones Negative (Negative) 02/18/23 Unknown Urine Blood Negative (Negative) 02/18/23 Unknown Urine Nitrite Negative (Negative) 02/18/23 Unknown Urine Bilirubin Negative (Negative) 02/18/23 Unknown Urine Urobilinogen Negative (Negative) 02/18/23 Unknown Ur Leukocyte Esterase Negative (Negative) 02/18/23 Unknown SARS-CoV-2 (PCR) NEGATIVE (Negative) 02/17/23 16:44 Influenza Type A (PCR) Negative (Neg) 02/17/23 16:44 Influenza Type B (PCR) Negative (Neg) 02/17/23 16:44 RSV (RT-PCR) Negative (Neg) 02/17/23 16:44 Impressions Chest X-Ray 02/18/23 15:00 XR chest 1V portable CLINICAL HISTORY: s/p right pleurx TECHNIQUE: Single frontal radiograph of the chest was obtained. Comparison: Comparison is made to chest radiograph 02/17/2023 FINDINGS: Interval placement of a right pleural catheter. Cardiomegaly is noted. The aortic arch is calcified. Right lower lung airspace opacity is noted. There is a [id number] right pleural effusion. IMPRESSION: 1. Small moderate right pleural effusion has improved from prior exam status post placement of a pleural catheter. No pneumothorax is seen. 2. Right lower lung airspace opacity has improved from prior exam likely representing atelectasis. ACT 112: Negative or not required by law. Electronically signed by: Marco A Dozier M.D. 02/18/2023 3:57 PM (2) COPD (chronic obstructive pulmonary disease) COPD type: unspecified COPD Qualified Code(s): J44.9 - Chronic obstructive pulmonary disease, unspecified (4) Metastatic lung cancer (metastasis from lung to other site) Laterality: unspecified laterality Qualified Code(s): C34.90 - Malignant neoplasm of unspecified part of unspecified bronchus or lung
[2023-02-18] MEDS: PRAVASTATIN SOD 40 MG TAB PO SCH (20:53)
[2023-02-18] MEDS: ACETAMINOPHEN 325 MG TAB PO PRN (20:53)
[2023-02-19] MEDS: CEFEPIME 2,000 MG in SYRINGE 0 ML IV SCH ×2 (03:29→12:41)
[2023-02-19] MEDS: LEVOTHYROXINE SODIUM 150 MCG TABLET PO SCH (05:58)
[2023-02-19] MEDS: ACETAMINOPHEN 325 MG TAB PO PRN ×4 (06:01→21:53)
[2023-02-19 06:25] LABS: Basophils # (auto) 0.05 K/uL (0-0.2); Basophils % (auto) 0.4 %; Eosinophils # (auto) 0.39 K/uL (0-0.50); Eosinophils % (auto) 3.5 %; Hematocrit (blood only) 37.4 % (37.0-47.0); Hemoglobin 11.5 g/dl (12.0-16.0); Immature Granulocytes # (auto) 0.08 K/uL (0.01-0.20); Immature Granulocytes % (auto) 0.7 %; Lymphocytes # (auto) 0.82 K/uL (1.2-3.4); Lymphocytes % (auto) 7.3 %; Mean Corpuscular Hemoglobin 28.8 pg (25.0-34.0); Mean Corpuscular Hgb Conc 30.7 g/dL (32.0-36.0); Mean Corpuscular Volume 93.7 fL (80.0-100.0); Mean Platelet Volume 10.7 fL (9.4-12.4); Monocytes # (auto) 0.76 K/uL (0.11-0.59); Monocytes % (auto) 6.8 %; Neutrophils # (auto) 9.13 K/uL (1.40-6.50); Neutrophils % (auto) 81.3 %; Platelet Count 290 K/uL (130-400); RDW Coefficient of Variation 14.9 % (11.5-14.5); RDW Standard Deviation 51.1 fL (36.4-46.3); Red Blood Count 3.99 M/uL (4.20-5.40); White Blood Count 11.23 K/ul (4.8-10.8)
[2023-02-19] MEDS: ALBUT/IPRATROP 3MG/0.5MG NEB 3 ML VIAL NEB SCH ×4 (07:14→19:37)
[2023-02-19 07:23] LABS: Calcium 9.3 mg/dl (8.6-10.3); Potassium 3.9 mmol/L (3.5-5.1)
[2023-02-19 07:29] LABS: BUN Creatinine Ratio 37.5 (10-20); Creatinine Clr Calc Pharmacy 102.5 ml/min; Est GFR (African American) 112.6 ml/min; Est GFR (Non-African American) 97.2 ml/min
[2023-02-19] MEDS: amLODIPine BESYLATE 5 MG TAB PO SCH (08:47)
[2023-02-19] MEDS: FUROSEMIDE 40 MG/4 ML VIAL IV SCH (08:48)
[2023-02-19] MEDS: METOPROLOL SUCC 25MG EXT REL TAB PO SCH ×2 (08:48→21:53)
[2023-02-19] MEDS: ASPIRIN 81 MG ECTAB PO SCH (08:48)
[2023-02-19] MEDS: FLUTICASONE FUROATE 100MCG 14 PUFFS/INHALER INH SCH (08:48)
[2023-02-19] MEDS: EZETIMIBE 10 MG TABLET PO SCH (08:48)
[2023-02-19] MEDS: POTASSIUM CHLORIDE 10 MEQ TABCR PO SCH (08:48)
[2023-02-19] MEDS: HEPARIN SOD 5,000 UNIT/0.5 ML VIAL SQ SCH ×2 (08:49→21:52)
[2023-02-19] MEDS: DOXYCYCLINE HYCLATE 100 MG in DEXTROSE 5% 100 ML IV SCH (08:49)
--- NOTE | 2023-02-19 08:55 | Pulmonology Progress Note ---
Date of Service February 19, 2023 Assessment & Plan (1) Acute and chronic respiratory failure with hypercapnia: Plan: IMPRESSION: 68-year-old female with overlap syndrome (obstructive lung disease/sleep disordered breathing) on CPAP presenting with acute on chronic hypoxic respiratory failure. Patient with underlying metastatic adenocarcinoma. She has yet to undergo chemotherapy or immunotherapy. She presents today with recurrent RIGHT-sided pleural effusion and worsening hypoxia. Patient presents again with similar symptoms of hypoxia in the setting of worsening RIGHT-sided pleural effusion. Effusion represents malignant pleural effusion from known underlying metastatic adenocarcinoma. Patient underwent Pleurx catheter placement yesterday. She had moderate relief of symptoms yesterday evening. Today, she reports great improvement. She is back down to her baseline oxygen requirement of 4 L nasal cannula. Patient can continue with all home pulmonary treatments at this time. (2) Malignant pleural effusion: Plan: As per above and recent hospitalizations. Patient will benefit from Pleurx catheter placement moving forward. We will set the patient up with outpatient follow-up in 2 weeks from date of placement of Pleurx catheter for suture removal. We can arrange nursing education for drainage of catheter and she may benefit from home health for the first week or so being home to help with drainage as well. She reports that she has daughters who will be able to help her moving forward otherwise. (3) COPD (chronic obstructive pulmonary disease): Plan: Continue with current inhaler therapy. Patient is not bronchospastic on exam today. This has been consistent with her prior admissions as well. COPD type: unspecified COPD Qualified Code(s): J44.9 - Chronic obstructive pulmonary disease, unspecified (4) Metastatic lung cancer (metastasis from lung to other site): Plan: Patient has an appointment next week with Dr. Redmond to finalize her treatment moving forward. Hopefully the PleurX placement will help keep her out of the hospital so she can undergo treatments as outlined by oncology. Laterality: unspecified laterality Qualified Code(s): C34.90 - Malignant neoplasm of unspecified part of unspecified bronchus or lung (5) Primary cancer of right lower lobe of lung: Plan: Patient has large lesion to the RIGHT lower lobe which is likely what is being considered pneumonia process. She has been on multiple antibiotics in the past. 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 Antibiotics can likely be discontinued at this time. Admission and Anticipated Discharge Date Admission Date: February 17, 2023 Review of Systems Review of Systems: A complete 10 point review of systems was reviewed with the patient with pertinent positives and negatives as per history of present illness. All else were negative. Physical Exam Physical Exam: VITAL SIGNS - Vital signs and nursing notes were reviewed. GENERAL - 68-year-old female appearing her stated age who is in no acute distress. Communicates well with provider and answers questions appropriately. LUNGS - Auscultation reveals Diminished breath sounds at the bilateral bases. CARDIAC - RRR with S1/S2. No murmur, rubs, or gallops appreciated. EXTREMITIES - No pretibial edema present. +3/5 radial palpated throughout. PSYCH - A&Ox3 and cooperates fully with examiner. Pt is very pleasant and interacts well with examiner. Results & Data Results & Data Vital Signs (Past 12 Hours) Vital Signs Temp Pulse Pulse Resp BP Pulse Ox Pulse Ox 02/19/23 08:20 60 02/19/23 08:15 36.3 C L 54 L 21 109/69 95 02/19/23 08:04 95 02/19/23 07:16 58 L 18 95 02/19/23 03:40 36.5 C 18 112/70 92 02/18/23 23:25 36.6 C 65 18 103/61 95 O2 Del Method O2 Del Method O2 Flow Rate O2 Flow Rate 02/19/23 08:20 02/19/23 08:15 Nasal Cannula 7 02/19/23 08:04 Nasal Cannula 6 02/19/23 07:16 Nasal Cannula 6 02/19/23 03:40 Nasal Cannula 7.0 02/18/23 23:25 Nasal Cannula 7.0 PG Care Time/CCT Total # of Minutes Spent Total Time Spent with Patient: Total time spent is greater than 50% in coordination of care (as documented) at patient's floor/unit and/or counseling patient: Coding Level of Care Code 43524 SUB INP/OBS CARE 3/50MIN Diagnoses Acute and chronic respiratory failure with hypercapnia J96.22 Malignant pleural effusion J91.0 COPD (chronic obstructive pulmonary disease) J44.9 COPD type: unspecified COPD Metastatic lung cancer (metastasis from lung to other site) C34.90 Laterality: unspecified laterality Primary cancer of right lower lobe of lung C34.31
--- NOTE | 2023-02-19 14:58 | Hospitalist Progress Note ---
Date of Service February 19, 2023 Assessment & Plan (1) Acute on chronic respiratory failure with hypoxia: (2) COPD (chronic obstructive pulmonary disease): (3) Malignant pleural effusion: (4) Metastatic lung cancer (metastasis from lung to other site): Plan: 67-year-old female presents with shortness of breath. New diagnosis of metastatic adenocarcinoma of the lung with mets mets to bone and liver early January 2023. Multiple admission in the last month due to acute hypoxic respiratory failure. She had undergone repeated thoracentesis for right-sided malignant pleural effusion. Chest x-ray on admission personally reviewed; increase in pleural effusion on left side compared to previous day Cytology from last admissions thoracentesis showed metastatic adenocarcinoma of pulmonary origin. Status post Pleurx catheter placement on February 18, 2023 Wean down oxygen as tolerated to keep saturation at 88 to 92%. Continue on IV Lasix 40 mg once a day. Pro-Matt negative. Right lower lobe consolidation likely due to malignancy. Just completed antibiotic course. DC antibiotics Patient to follow-up outpatient with radiation oncology and oncology next week. Wean off oxygen as tolerated; she is at 4 L of oxygen at baseline Continue home inhalers for COPD. Not on acute exacerbation for now. Will need home health set up for Pleurx catheter management. Patient reports that her daughters can help her with the Pleurx catheter. (5) BHAVIK on CPAP: Plan: Continue CPAP at night and sleeping during the day (6) HTN (hypertension): Plan: Continue on amlodipine and metoprolol. (7) Diabetes mellitus, type II: Plan: Hold metformin Blood sugar ACHS and SSI (8) CAD (coronary artery disease): Plan: No acute issue. Continue on aspirin (9) HLD (hyperlipidemia): Plan: Continue on Zetia, pravastatin (10) Hypothyroid: Plan: Continue home levothyroxine DVT prophylaxis Heparin CODE STATUS Full Plan Time spent evaluating patient, direct bedside care, chart review, placing orde rs, interpretation of diagnostic studies, discussion with consultants, patient, and family members, as well as other required patient management activities is 60 minutes. Please note the above document was generated using voice recognition software. It may contain grammatical, syntax or spelling errors. Any formal questions or concerns about the content, text or information contained within the body of this dictation should be directly addressed to the provider for clarification Admission and Anticipated Discharge Date Admission Date: February 17, 2023 Subjective Patient seen and examined at bedside. She is sitting up on the bed; reports getting short of breath on exertion. Requiring 5 L of oxygen at rest. Review of Systems Review of Systems: All systems reviewed & are unremarkable except as noted in Subjective Physical Exam Physical Exam: Constitutional: WD/WN, vitals as above, NAD, sitting up in bed, pleasant, conversing easily Respiratory: Decreased breath sound at right lower base. PleurX catheter in situ Cardiovascular: RRR, no murmur, no edema Vessels: no JVD or carotid bruit Chest: normal inspection of chest Abdomen: normal bowel sounds, soft, nontender, no hepatosplenomegaly Musculoskeletal: no cyanosis or clubbing, extremities motor strength 5/5 Skin: no rashes, warm and dry normal turgor Neurologic: PERRL, EOMI, accommodation nl, no face palsy, no dysarthria CN's II- XI intact bilaterally and moves all extremities Psychiatric: A+Ox3, euthymic affect Lymphatic: no cervical or axillary lymphadenopathy : deferred Results & Data Results & Data Vital Signs (Past 12 Hours) Vital Signs Temp Pulse Pulse Resp BP Pulse Ox Pulse Ox 02/19/23 12:17 56 L 18 91 02/19/23 11:45 36.5 C 71 19 114/68 90 02/19/23 09:00 02/19/23 08:20 60 02/19/23 08:15 36.3 C L 54 L 21 109/69 95 02/19/23 08:04 95 02/19/23 07:16 58 L 18 95 02/19/23 03:40 36.5 C 18 112/70 92 O2 Del Method O2 Del Method O2 Flow Rate O2 Flow Rate 02/19/23 12:17 Nasal Cannula 5 02/19/23 11:45 Nasal Cannula 5 02/19/23 09:00 Nasal Cannula 5 02/19/23 08:20 02/19/23 08:15 Nasal Cannula 7 02/19/23 08:04 Nasal Cannula 6 02/19/23 07:16 Nasal Cannula 6 02/19/23 03:40 Nasal Cannula 7.0 Laboratory Results Laboratory Results WBC 11.23 K/ul (4.8-10.8) H 02/19/23 05:41 RBC 3.99 M/uL (4.20-5.40) L 02/19/23 05:41 Hgb 11.5 g/dl (12.0-16.0) L 02/19/23 05:41 Hct 37.4 % (37.0-47.0) 02/19/23 05:41 MCV 93.7 fL (80.0-100.0) 02/19/23 05:41 MCH 28.8 pg (25.0-34.0) 02/19/23 05:41 MCHC 30.7 g/dL (32.0-36.0) L 02/19/23 05:41 RDW Std Deviation 51.1 fL (36.4-46.3) H 02/19/23 05:41 RDW Coeff of Naa 14.9 % (11.5-14.5) H 02/19/23 05:41 Plt Count 290 K/uL (130-400) 02/19/23 05:41 MPV 10.7 fL (9.4-12.4) 02/19/23 05:41 Immature Gran % (Auto) 0.7 % 02/19/23 05:41 Neut % (Auto) 81.3 % 02/19/23 05:41 Lymph % (Auto) 7.3 % 02/19/23 05:41 [place] % (Auto) 6.8 % 02/19/23 05:41 Eos % (Auto) 3.5 % 02/19/23 05:41 Baso % (Auto) 0.4 % 02/19/23 05:41 Neut # (Auto) 9.13 K/uL (1.40-6.50) H 02/19/23 05:41 Lymph # (Auto) 0.82 K/uL (1.2-3.4) L 02/19/23 05:41 [place] # (Auto) 0.76 K/uL (0.11-0.59) H 02/19/23 05:41 Eos # (Auto) 0.39 K/uL (0-0.50) 02/19/23 05:41 Baso # (Auto) 0.05 K/uL (0-0.2) 02/19/23 05:41 Immature Gran # (Auto) 0.08 K/uL (0.01-0.20) 02/19/23 05:41 Polychromasia 1+ 02/18/23 05:50 PT 11.1 Seconds (9.0-12.0) 02/18/23 09:39 INR 1.0 (0.9-1.1) 02/18/23 09:39 ABG pH 7.45 (7.35-7.45) 02/17/23 18:29 ABG pCO2 56 mmHg (35-46) H 02/17/23 18:29 ABG pO2 75 mmHg (80-95) L 02/17/23 18:29 ABG HCO3 39 mmol/L (19-24) H 02/17/23 18:29 ABG O2 Saturation 95.9 % (90-95) H 02/17/23 18:29 ABG Base Excess 12.7 mEq/L (-9-1.8) H 02/17/23 18:29 Christian Test Pos (Pos) 02/17/23 18:29 VBG pH 7.44 (7.36-7.41) H 02/17/23 17:21 VBG pCO2 57 mmHg (38-50) H 02/17/23 17:21 VBG pO2 124 mmHg 02/17/23 17:21 VBG HCO3 39 mmol/L 02/17/23 17:21 VBG O2 Saturation 98.4 % 02/17/23 17:21 VBG Base Excess 12.1 mEq/L 02/17/23 17:21 Oxygen Given BIPAP 02/17/23 18:29 Sodium 137 mmol/L (136-145) 02/19/23 05:41 Potassium 3.9 mmol/L (3.5-5.1) 02/19/23 05:41 Chloride 94 mmol/L (98-107) L 02/19/23 05:41 Carbon Dioxide 35 mmol/L (21-32) H 02/19/23 05:41 Anion Gap 8 (3-11) 02/19/23 05:41 BUN 21 mg/dl (6-23) 02/19/23 05:41 Creatinine 0.56 mg/dl (0.6-1.2) L 02/19/23 05:41 Est Cr Clr Drug Dosing 102.5 ml/min 02/19/23 05:41 Est GFR ( Amer) 112.6 ml/min 02/19/23 05:41 Est GFR (Non-Af Amer) 97.2 ml/min 02/19/23 05:41 BUN/Creatinine Ratio 37.5 (10-20) H 02/19/23 05:41 Glucose 102 mg/dl (70-99(Fasting)) H 02/19/23 05:41 Calcium 9.3 mg/dl (8.6-10.3) 02/19/23 05:41 Phosphorus 3.6 mg/dl (2.5-4.9) 02/18/23 05:50 Magnesium 2.1 mg/dl (1.7-2.4) 02/18/23 05:50 Total Bilirubin 0.3 mg/dl (0.2-1.0) 02/18/23 05:50 AST 14 U/L (13-39) 02/18/23 05:50 ALT 19 U/L (7-52) 02/18/23 05:50 Alkaline Phosphatase 107 U/L (34-104) H 02/18/23 05:50 Troponin I High Sens 5.7 pg/ml (0-14) 02/17/23 16:00 B-Natriuretic Peptide 45 pg/ml (0-100) 02/19/23 05:41 Total Protein 7.6 gm/dl (6.0-8.3) 02/18/23 05:50 Albumin 4.0 gm/dl (3.4-5.0) 02/18/23 05:50 Globulin 3.6 gm/dl (2.5-4.0) 02/18/23 05:50 Albumin/Globulin Ratio 1.1 (0.9-2) 02/18/23 05:50 Procalcitonin 0.06 ng/ml (0-0.5) 02/19/23 05:41 Urine Color Yellow 02/18/23 Unknown Urine Appearance Clear (Clear) 02/18/23 Unknown Urine pH 5.0 (4.5-7.5) 02/18/23 Unknown Ur Specific [place] 1.016 (1.000-1.030) 02/18/23 Unknown Urine Protein Negative (Negative) 02/18/23 Unknown Urine Glucose (UA) Negative (Negative) 02/18/23 Unknown Urine Ketones Negative (Negative) 02/18/23 Unknown Urine Blood Negative (Negative) 02/18/23 Unknown Urine Nitrite Negative (Negative) 02/18/23 Unknown Urine Bilirubin Negative (Negative) 02/18/23 Unknown Urine Urobilinogen Negative (Negative) 02/18/23 Unknown Ur Leukocyte Esterase Negative (Negative) 02/18/23 Unknown SARS-CoV-2 (PCR) NEGATIVE (Negative) 02/17/23 16:44 Hepatitis C Ab (EIA) NON-REACTIVE (NON-REACTIVE) 02/18/23 05:50 Hep C Ab Signal/Cutoff 0.04 (<1.00) 02/18/23 05:50 Influenza Type A (PCR) Negative (Neg) 02/17/23 16:44 Influenza Type B (PCR) Negative (Neg) 02/17/23 16:44 RSV (RT-PCR) Negative (Neg) 02/17/23 16:44 Impressions Chest X-Ray 02/18/23 15:00 XR chest 1V portable CLINICAL HISTORY: s/p right pleurx TECHNIQUE: Single frontal radiograph of the chest was obtained. Comparison: Comparison is made to chest radiograph 02/17/2023 FINDINGS: Interval placement of a right pleural catheter. Cardiomegaly is noted. The ao rtic arch is calcified. Right lower lung airspace opacity is noted. There is a [id number] right pleural effusion. IMPRESSION: 1. Small moderate right pleural effusion has improved from prior exam status post placement of a pleural catheter. No pneumothorax is seen. 2. Right lower lung airspace opacity has improved from prior exam likely representing atelectasis. ACT 112: Negative or not required by law. Electronically signed by: Marco A Dozier M.D. 02/18/2023 3:57 PM (2) COPD (chronic obstructive pulmonary disease) COPD type: unspecified COPD Qualified Code(s): J44.9 - Chronic obstructive pulmonary disease, unspecified (4) Metastatic lung cancer (metastasis from lung to other site) Laterality: unspecified laterality Qualified Code(s): C34.90 - Malignant neoplasm of unspecified part of unspecified bronchus or lung
[2023-02-19] MEDS: PRAVASTATIN SOD 40 MG TAB PO SCH (21:52)
--- NOTE | 2023-02-20 04:55 | Electrocardiogram Report ---
Test Reason : Blood Pressure : / mmHG Vent. Rate : 086 BPM Atrial Rate : 086 BPM P-R Int : 132 ms QRS Dur : 084 ms QT Int : 334 ms P-R-T Axes : 073 079 052 degrees QTc Int : 399 ms Normal sinus rhythm Low voltage QRS Septal infarct , age undetermined Nonspecific T wave abnormality Abnormal ECG When compared with ECG of 30-JAN-2023 08:28, Septal infarct is now Present Nonspecific T wave abnormality now evident in Lateral leads Confirmed by Jonathon Wasserman ([id number]) on 02/20/2023 4:55:25 AM Referred By: Confirmed By:Jonathon Wasserman
[2023-02-20] MEDS: LEVOTHYROXINE SODIUM 150 MCG TABLET PO SCH (05:55)
[2023-02-20] MEDS: ACETAMINOPHEN 325 MG TAB PO PRN (05:56)
[2023-02-20 06:43] LABS: Basophils # (auto) 0.06 K/uL (0-0.2); Basophils % (auto) 0.5 %; Eosinophils # (auto) 0.39 K/uL (0-0.50); Eosinophils % (auto) 3.6 %; Hematocrit (blood only) 37.3 % (37.0-47.0); Hemoglobin 11.4 g/dl (12.0-16.0); Immature Granulocytes # (auto) 0.07 K/uL (0.01-0.20); Immature Granulocytes % (auto) 0.6 %; Lymphocytes % (auto) 6.4 %; Mean Corpuscular Hemoglobin 28.9 pg (25.0-34.0); Mean Corpuscular Hgb Conc 30.6 g/dL (32.0-36.0); Mean Corpuscular Volume 94.4 fL (80.0-100.0); Mean Platelet Volume 10.5 fL (9.4-12.4); Monocytes # (auto) 0.85 K/uL (0.11-0.59); Monocytes % (auto) 7.8 %; Neutrophils # (auto) 8.84 K/uL (1.40-6.50); Neutrophils % (auto) 81.1 %; Platelet Count 280 K/uL (130-400); RDW Coefficient of Variation 14.8 % (11.5-14.5); RDW Standard Deviation 51.5 fL (36.4-46.3); Red Blood Count 3.95 M/uL (4.20-5.40); White Blood Count 10.91 K/ul (4.8-10.8)
[2023-02-20] MEDS: ALBUT/IPRATROP 3MG/0.5MG NEB 3 ML VIAL NEB SCH ×4 (07:16→19:18)
[2023-02-20] MEDS: ASPIRIN 81 MG ECTAB PO SCH (09:07)
[2023-02-20] MEDS: HEPARIN SOD 5,000 UNIT/0.5 ML VIAL SQ SCH ×3 (09:07→20:27)
[2023-02-20] MEDS: POTASSIUM CHLORIDE 10 MEQ TABCR PO SCH (09:07)
[2023-02-20] MEDS: EZETIMIBE 10 MG TABLET PO SCH (09:07)
[2023-02-20] MEDS: amLODIPine BESYLATE 5 MG TAB PO SCH (09:08)
[2023-02-20] MEDS: FLUTICASONE FUROATE 100MCG 14 PUFFS/INHALER INH SCH (09:08)
[2023-02-20] MEDS: FUROSEMIDE 40 MG/4 ML VIAL IV SCH (09:08)
[2023-02-20] MEDS: METOPROLOL SUCC 25MG EXT REL TAB PO SCH ×2 (09:08→20:26)
[2023-02-20 11:04] LABS: Calcium 9.3 mg/dl (8.6-10.3)
[2023-02-20 11:10] LABS: BUN Creatinine Ratio 33.3 (10-20); Creatinine Clr Calc Pharmacy 112.6 ml/min; Est GFR (African American) 116.1 ml/min; Est GFR (Non-African American) 100.2 ml/min
--- NOTE | 2023-02-20 11:17 | XRay Report ---
XR chest 1V portable CLINICAL HISTORY: follow up pleurx TECHNIQUE: Single frontal radiograph of the chest was obtained. Comparison: Comparison is made to chest radiograph 02/18/2023 FINDINGS: There is a right lung base pleural catheter. Right lower lobe airspace opacity is seen, minimally imp roved from prior exam. Cardiac silhouette is stable. Right pleural effusion has somewhat decreased in size. IMPRESSION: 1. Minimal decrease in size of right pleural effusion without evidence of atelectasis in this patien t with a right pleural catheter. 2. Right lower lung airspace opacity likely represents improving atelectasis. ACT 112: Negative or not required by law. Electronically signed by: Marco A Dozier M.D. 02/20/2023 11:16 AM
--- NOTE | 2023-02-20 11:33 | Pulmonology Progress Note ---
Date of Service February 20, 2023 Assessment & Plan (1) Acute and chronic respiratory failure with hypercapnia: Plan: Continue home CPAP and supplemental oxygen to maintain sats of 88 to 92%. I am not sure that she is stable for discharge home and I suspect she would benefit from [facility] facility. Recommend reengaging with palliative care given the advanced nature of her pulmonary disease and malignancy. (2) Malignant pleural effusion: Plan: Continue Pleurx catheter drainage every other day. I took down the dressing today and the Pleurx site looks clean, dry and intact. Sutures to be removed within the next 10 days. (3) COPD (chronic obstructive pulmonary disease): Plan: Continue with current inhaler therapy. COPD type: unspecified COPD Qualified Code(s): J44.9 - Chronic obstructive pulmonary disease, unspecified (4) Metastatic lung cancer (metastasis from lung to other site): Plan: Recommend palliative care consultation. She has been declining overall it is unclear how well she would tolerate chemo or immunotherapy at this point. Laterality: unspecified laterality Qualified Code(s): C34.90 - Malignant neoplasm of unspecified part of unspecified bronchus or lung Plan I have nothing further to add at this time. Please call with questions. Thank you for the consultation. Admission and Anticipated Discharge Date Admission Date: February 17, 2023 Subjective Patient seen and examined. She remains dyspneic with minimal exertion. She is on 5 to 6 L of oxygen. Discharge plan unclear at this time. Review of Systems Review of Systems: All systems reviewed & are unremarkable except as noted in HPI & below Physical Exam Physical Exam: VITAL SIGNS - Vital signs and nursing notes were reviewed. GENERAL - 68-year-old female appearing her stated age who is in no acute distress. Communicates well with provider and answers questions appropriately. LUNGS - Auscultation reveals Diminished breath sounds at the bilateral bases. CARDIAC - RRR with S1/S2. No murmur, rubs, or gallops appreciated. EXTREMITIES - No pretibial edema present. +3/5 radial palpated throughout. PSYCH - A&Ox3 and cooperates fully with examiner. Pt is very pleasant and interacts well with examiner. Results & Data Results & Data Vital Signs (Past 12 Hours) Vital Signs Temp Pulse Pulse Resp BP Pulse Ox O2 Del Method 02/20/23 11:24 36.4 C L 70 20 92 Nasal Cannula 02/20/23 11:07 76 18 89 L CPAP 02/20/23 08:00 65 02/20/23 08:00 02/20/23 07:45 36.7 C 63 20 118/70 95 Nasal Cannula 02/20/23 07:18 60 18 94 Nasal Cannula 02/20/23 03:38 36.4 C L 59 L 18 119/65 92 Nasal Cannula O2 Del Method O2 Flow Rate O2 Flow Rate 02/20/23 11:24 5 02/20/23 11:07 5 02/20/23 08:00 02/20/23 08:00 Nasal Cannula 5 02/20/23 07:45 5 02/20/23 07:18 6 02/20/23 03:38 6.0 PG Care Time/CCT Total # of Minutes Spent Total Time Spent with Patient: Total time spent is greater than 50% in coordination of care (as documented) at patient's floor/unit and/or counseling patient: Coding Level of Care Code 50086 SUB INP/OBS CARE 2/35MIN Diagnoses Acute and chronic respiratory failure with hypercapnia J96.22 Malignant pleural effusion J91.0 COPD (chronic obstructive pulmonary disease) J44.9 COPD type: unspecified COPD Metastatic lung cancer (metastasis from lung to other site) C34.90 Laterality: unspecified laterality
--- NOTE | 2023-02-20 12:45 | Palliative Care Progress Note ---
Date of Service February 20, 2023 Assessment & Plan (1) Palliative care by specialist: (2) Advanced care planning/counseling discussion: Plan: I met with pt face to face at bedside for 45min and we had a detailed ACP discussion: I revisited the code status & goals of care discussion. She remains fixed on conviction of "give me more lasix and this fluid in my lung will go away then I can have keytruda." She feels keytruda will bring cancer into remission. She downplays her metastatic disease (she states "give me lasix to fix the fluid" + "it's slow growing, they've known about it since 2016 so it can't be all that bad" + "my liver's not the problem it's this fluid in the lungs you have to fix so I can have keytruda") desat events (into the low 80s with minimal exertion) and says the monitor is wrong, she's only dropping 4-5 %. We spoke about how the escalating oxygen needs and worsening exercise tolerance in the broader context of metastatic adenocarcinoma is a concern to medical teams that we may be heading in the direction of things that are not as fixable as we might've hoped they would be. We explored code status/discussed CPR viability in setting of adv illness/met lung ca/adv copd and reviewed data about CPR survival: Only about 10% of patients who have cof-ev-sehgqzty sudden cardiac arrest survive to hospital discharge, with many survivors having neurologic impairment. This rate is even lower among patients with serious coexisting conditions, ie chance of survival to hospital discharge for in-hospital CPR in older people is low to moderate (15%) and decreases with age, comorbidities, performance status and frailty: for pts > 70 yo, more than half of the patients who initially survived resuscitation in the hospital before hospital discharge. The pooled survival to discharge after in-hospital CPR was 18% for patients between 70 and 79 years old, 15% for patients between 80 and 89 years old and 11% for patients of 90 years and older. (Vu ECHAVARRIA, Cristopher LJ, Salvador F, et al. Trends in short- and long-term survival among [id number] cardiac arrest patients alive at hospital arrival. Circulation 2014;130:3949-3789. AND Lilliam Evans, Yahir T, Kentrell R, et al. Performance of clinical risk scores to predict mortality and neurological outcome in cardiac arrest patients. Resuscitation 2019;136:21-29.) For example, I asked her what she would want if was on life support but could not be weaned off a vent and she states she would not want to live on a vent retirement nor would she want trach/PEG and vent-SNF. She ultimately wants to be in her own home. Summer states "so what you're saying is there is no hope!" I re-reviewed the concerns the teams are having with current medical findings and it is our worry that prompts the need for ongoing conversations. We spoke about how as disease worsens, the goals we set for ourselves may shift and it is really important for medical teams to know what matters most to our patients so that we are able to develop plans of care that are in alignment with patients wishes/preferences and that the plans of care respect and honor what our patients want for themselves. I also spoke with her about rehab and she reluctantly agreed to go if PT recommends it (they are seeing her this afternoon) but says she gets feeling "locked down" when she's away from home more than a few days. I encouraged her to keep an open mind about rehab, and discussed how therapy can help improver her strength/conditioning - for an adv lung patient this is important since a stronger muscle will use less oxygen to function and this in turn can improve her dyspnea/maybe reduce oxygen needs. She was in agreement for me to call her daughters to given them update of above discussion and advised me "it doesn't matter which one you call, just call one and she'll update the other." (3) Dyspnea and respiratory abnormalities: (4) Pleural effusion, right: (5) Acute and chronic respiratory failure with hypercapnia: (6) COPD (chronic obstructive pulmonary disease): (7) Malignant pleural effusion: (8) Pulmonary hypertension: (9) Metastatic lung cancer (metastasis from lung to other site): (10) COPD, group D, by GOLD 2017 classification: (11) BHAVIK on CPAP: Plan * Summer has some limited insight into the overall complexity of her illness. She perceives that since her lung findings "were being followed since 2105, then that means this isn't a very bad cancer. I know a lot of people who have lived for 20, 30 years with lung cancer." She notes that many lung complications (recurrent PNA for example) began after she quit smoking and began taking the PNA vaccine. She perceives the Keytruda would be a medication to bring about cure/remission. She does not agree that worsening/escalating O2 needs are indicating that things might be worsening. * Detailed ACP discussion as noted above. I recc she have some further discussions with her daughters. I reassured her she did not need to make a code status decision right this minute, but to consider it as part of the broader picture of adv illness planning and to help give us, her medical teams, a sense of her personal wishes, preferences and desires for herself if / when things get worse, carlos important to for us to know is what are her boundaries/preferred limits if any to advanced care/utilization of life support. She was quite clear she did not want to live on life support or retirement SNF care. * I called pt dtr, Nigel Gibbs, at 2pm. She asked me to call her back in approx 20min because she was "finishing up a few things before leaving work." We agr eed to speak around 230pm. I called again approx 3pm (was held up with another patient/family) and this time it went to voicecail. I [facility] req call back. * I have updated Drs. Goran/primary, Nyla/oncology and Saray/pulm ccm. I have also updated nursing/Ghazala RN. Thank you for allowing us to participate in the ongoing care of this patient. Please don't hesitate to call or page with any additional concerns. Dr. Charisma Hartmann DNP Director, Palliative Care Admission and Anticipated Discharge Date Admission Date: February 17, 2023 Subjective Summer is seen in follow up She denies new complaints but her overall resp failure and PS remain suboptimal: she remains very easily dyspneic with minimal exertion, SpO2s drop into low 80s with exertion and O2 now increased to 6lpm with any exertion Pulm med notes she may be too marginal candidate for aggressive cancer directed care She is worried about her current portable concentrator which goes yp to 4lpm PULSED. She feels additional lasix will correct the effusion issues and get her to her clinic appt to begin keytruda Appetite remains stable She is starting to feel "antsy" being in the hospital and wants to know about going home Review of Systems Review of Systems: All systems reviewed & are unremarkable except as noted in Subjective Physical Exam Physical Exam: Seated at edge of bed SOB with conversation while at rest with mild use of accessory muscles Diminished breath sounds Inc effort Color pale BLE with inc edema, non pitting. +dry skin Results & Data Vital Signs (Past 12 Hours) Vital Signs Temp Pulse Pulse Resp BP Pulse Ox O2 Del Method 02/20/23 11:24 36.4 C L 70 20 92 Nasal Cannula 02/20/23 11:07 76 18 89 L CPAP 02/20/23 08:00 65 02/20/23 08:00 02/20/23 07:45 36.7 C 63 20 118/70 95 Nasal Cannula 02/20/23 07:18 60 18 94 Nasal Cannula 02/20/23 03:38 36.4 C L 59 L 18 119/65 92 Nasal Cannula O2 Del Method O2 Flow Rate O2 Flow Rate 02/20/23 11:24 5 02/20/23 11:07 5 02/20/23 08:00 02/20/23 08:00 Nasal Cannula 5 02/20/23 07:45 5 02/20/23 07:18 6 02/20/23 03:38 6.0 Laboratory Results data reviewed Diagnostic Findings data reviewed PETCT November 2022: 1. Right lobe consolidation demonstrating patchy FDG uptake. This obscures the previously described right lower lobe nodule. This is likely due to post radiation changes. A pneumonitis could also have a similar appearance. 2. FDG avid mediastinal and right hilar lymphadenopathy which has progressed. 3. Multiple FDG avid hepatic metastatic lesions. 4. Multiple scattered FDG avid osteoblastic metastatic foci. HEAD AND NECK: There is no FDG-avid disease or significant lymphadenopathy in the imaged portions of the head and the neck. CHEST: Multiple FDG avid right paratracheal, subcarinal, and right hilar lymph nodes which have progressed in the interval. Right hilar lymph nodes demonstrate an SUV max of 5. The right lower lobe consolidation appears to obscure the patient's known right lower lobe pulmonary nodule. This area of consolidation demonstrates patchy FDG uptake with an SUV max of 4.0. No abnormal FDG uptake within the subcentimeter nodules within the left lung. Mild diffuse interlobular septal thickening persists. This is nonspecific could be due to pulmonary edema. Lymphangitic spread of tumor is considered less likely but not entirely excluded. ABDOMEN/PELVIS: Below the diaphragm, tracer is distributed physiologically in the gastrointestinal and genitourinary tracts. There are at least 8 FDG avid lesions within the liver with the largest in the right hepatic lobe on image 155 measuring 2.7 cm. These are consistent with metastatic foci and demonstrate an SUV max of 8.2. No retroperitoneal or pelvic lymphadenopathy. There is a mod erate size fat-containing umbilical hernia. Prior cholecystectomy. MUSCULOSKELETAL: Multiple scattered FDG avid sclerotic lesions seen throughout the visualized osseous structures. There is a pathologic fracture within the right coracoid process. These are consistent with sites of metastatic disease. PG Care Time/CCT Total # of Minutes Spent Total Time Spent: 90 Total Time Spent with Patient: Total time spent is greater than 50% in coordination of care (as documented) at patient's floor/unit and/or counseling patient: I spent 90 minutes overall addressing this case: 10 in medical data review/discussion with referring provider(s) and/or preparation for the visit 15 in direct interaction with the patient 45 Advance Care Planning/Goals of Care discussions as detailed above in note (must be >16min) 10 in subsequent review and synthesis of assessment and plan 10 in communicating with other providers regarding the patient's case: [] Advanced Care Planning 32819 Advanced Care Planning 30 Min 40546 Advanced Care Planning Additional 30 Min [place] [address] SUB INP/OBS CARE 3/50MIN Patient Type Established Medical Decision Making High Complexity Diagnoses Palliative care by specialist Z51.5 Advanced care planning/counseling discussion Z71.89 Dyspnea and respiratory abnormalities R06.00; R06.89 Pleural effusion, right J90 Acute and chronic respiratory failure with hypercapnia J96.22 COPD (chronic obstructive pulmonary disease) J44.9 Malignant pleural effusion J91.0 Pulmonary hypertension I27.20 Metastatic lung cancer (metastasis from lung to other site) C34.90 Laterality: unspecified laterality COPD, group D, by GOLD 2017 classification J44.9 BHAVIK on CPAP G47.33; Z99.89 Additional Codes Advanced Care Planning - 10507 Advanced Care Planning 30 Min: 59077 Advanced Care Planning 30 Min ([id number]) Advanced Care Planning - 61994 Advanced Care Planning Additional 30 Min: 94987 Advanced Care Planning Additional 30 Min ([id number]) (9) Metastatic lung cancer (metastasis from lung to other site) Laterality: unspecified laterality Qualified Code(s): C34.90 - Malignant neoplasm of unspecified part of unspecified bronchus or lung
--- NOTE | 2023-02-20 15:56 | Hospitalist Progress Note ---
Date of Service February 20, 2023 Assessment & Plan (1) Acute on chronic respiratory failure with hypoxia: (2) COPD (chronic obstructive pulmonary disease): (3) Malignant pleural effusion: (4) Metastatic lung cancer (metastasis from lung to other site): Plan: 67-year-old female presents with shortness of breath. New diagnosis of metastatic adenocarcinoma of the lung with mets mets to bone and liver early January 2023. Multiple admission in the last month due to acute hypoxic respiratory failure. She had undergone repeated thoracentesis for right-sided malignant pleural effusion. Chest x-ray on admission personally reviewed; increase in pleural effusion on left side compared to previous day Cytology from last admissions thoracentesis showed metastatic adenocarcinoma of pulmonary origin. Status post Pleurx catheter placement on February 18, 2023 Wean down oxygen as tolerated to keep saturation at 88 to 92%. Continue on IV Lasix 40 mg once a day. Pro-Matt negative. Right lower lobe consolidation likely due to malignancy. Just completed antibiotic course. DC antibiotics Patient to follow-up outpatient with radiation oncology and oncology next week. Wean off oxygen as tolerated; she is at 4 L of oxygen at baseline Continue home inhalers for COPD. Not on acute exacerbation for now. Will need home health set up for Pleurx catheter management. Patient reports that her daughters can help her with the Pleurx catheter. (5) BHAVIK on CPAP: Plan: Continue CPAP at night and sleeping during the day (6) HTN (hypertension): Plan: Continue on amlodipine and metoprolol. (7) Diabetes mellitus, type II: Plan: Hold metformin Blood sugar ACHS and SSI (8) CAD (coronary artery disease): Plan: No acute issue. Continue on aspirin (9) HLD (hyperlipidemia): Plan: Continue on Zetia, pravastatin (10) Hypothyroid: Plan: Continue home levothyroxine DVT prophylaxis Heparin CODE STATUS Full Dispositionpatient can be discharged home after she is weaned down to baseline oxygen requirement and home health is set up for Pleurx catheter Plan Time spent evaluating patient, direct bedside care, chart review, placing orders, interpretation of diagnostic studies, discussion with consultants, patient, and family members, as well as other required patient management activities is 60 minutes. Please note the above document was generated using voice recognition software. It may contain grammatical, syntax or spelling errors. Any formal questions or concerns about the content, text or information contained within the body of this dictation should be directly addressed to the provider for clarification Admission and Anticipated Discharge Date Admission Date: February 17, 2023 Subjective Patient seen and examined at bedside. She is lying in the bed comfortably; denies any pain or discomfort. Requiring 5 L of oxygen per minute by nasal cannula. Review of Systems Review of Systems: All systems reviewed & are unremarkable except as noted in Subjective Physical Exam Physical Exam: Constitutional: WD/WN, vitals as above, NAD, sitting up in bed, pleasant, conversing easily Respiratory: Decreased breath sound at right lower base. PleurX catheter in situ Cardiovascular: RRR, no murmur, no edema Vessels: no JVD or carotid bruit Chest: normal inspection of chest Abdomen: normal bowel sounds, soft, nontender, no hepatosplenomegaly Musculoskeletal: no cyanosis or clubbing, extremities motor strength 5/5 Skin: no rashes, warm and dry normal turgor Neurologic: PERRL, EOMI, accommodation nl, no face palsy, no dysarthria CN's II- XI intact bilaterally and moves all extremities Psychiatric: A+Ox3, euthymic affect Lymphatic: no cervical or axillary lymphadenopathy : deferred Results & Data Results & Data Vital Signs (Past 12 Hours) Vital Signs Temp Pulse Pulse Resp BP BP Pulse Ox 02/20/23 15:34 36.6 C 83 18 129/70 98 02/20/23 14:57 73 18 93 02/20/23 14:38 95 02/20/23 09:00 02/20/23 11:24 36.4 C L 70 20 92 02/20/23 11:07 76 18 89 L 02/20/23 08:00 65 02/20/23 08:00 02/20/23 07:45 36.7 C 63 20 118/70 95 02/20/23 07:18 60 18 94 O2 Del Method O2 Del Method O2 Flow Rate O2 Flow Rate 02/20/23 15:34 Nasal Cannula 5 02/20/23 14:57 Nasal Cannula 02/20/23 14:38 02/20/23 09:00 Nasal Cannula 5 02/20/23 11:24 Nasal Cannula 5 02/20/23 11:07 CPAP 5 02/20/23 08:00 02/20/23 08:00 Nasal Cannula 5 02/20/23 07:45 Nasal Cannula 5 02/20/23 07:18 Nasal Cannula 6 Laboratory Results Laboratory Results WBC 10.91 K/ul (4.8-10.8) H 02/20/23 05:48 RBC 3.95 M/uL (4.20-5.40) L 02/20/23 05:48 Hgb 11.4 g/dl (12.0-16.0) L 02/20/23 05:48 Hct 37.3 % (37.0-47.0) 02/20/23 05:48 MCV 94.4 fL (80.0-100.0) 02/20/23 05:48 MCH 28.9 pg (25.0-34.0) 02/20/23 05:48 MCHC 30.6 g/dL (32.0-36.0) L 02/20/23 05:48 RDW Std Deviation 51.5 fL (36.4-46.3) H 02/20/23 05:48 RDW Coeff of Naa 14.8 % (11.5-14.5) H 02/20/23 05:48 Plt Count 280 K/uL (130-400) 02/20/23 05:48 MPV 10.5 fL (9.4-12.4) 02/20/23 05:48 Immature Gran % (Auto) 0.6 % 02/20/23 05:48 Neut % (Auto) 81.1 % 02/20/23 05:48 Lymph % (Auto) 6.4 % 02/20/23 05:48 [place] % (Auto) 7.8 % 02/20/23 05:48 Eos % (Auto) 3.6 % 02/20/23 05:48 Baso % (Auto) 0.5 % 02/20/23 05:48 Neut # (Auto) 8.84 K/uL (1.40-6.50) H 02/20/23 05:48 Lymph # (Auto) 0.70 K/uL (1.2-3.4) L 02/20/23 05:48 [place] # (Auto) 0.85 K/uL (0.11-0.59) H 02/20/23 05:48 Eos # (Auto) 0.39 K/uL (0-0.50) 02/20/23 05:48 Baso # (Auto) 0.06 K/uL (0-0.2) 02/20/23 05:48 Immature Gran # (Auto) 0.07 K/uL (0.01-0.20) 02/20/23 05:48 Polychromasia 1+ 02/18/23 05:50 PT 11.1 Seconds (9.0-12.0) 02/18/23 09:39 INR 1.0 (0.9-1.1) 02/18/23 09:39 ABG pH 7.45 (7.35-7.45) 02/17/23 18:29 ABG pCO2 56 mmHg (35-46) H 02/17/23 18:29 ABG pO2 75 mmHg (80-95) L 02/17/23 18:29 ABG HCO3 39 mmol/L (19-24) H 02/17/23 18:29 ABG O2 Saturation 95.9 % (90-95) H 02/17/23 18:29 ABG Base Excess 12.7 mEq/L (-9-1.8) H 02/17/23 18:29 Christian Test Pos (Pos) 02/17/23 18:29 VBG pH 7.44 (7.36-7.41) H 02/17/23 17:21 VBG pCO2 57 mmHg (38-50) H 02/17/23 17:21 VBG pO2 124 mmHg 02/17/23 17:21 VBG HCO3 39 mmol/L 02/17/23 17:21 VBG O2 Saturation 98.4 % 02/17/23 17:21 VBG Base Excess 12.1 mEq/L 02/17/23 17:21 Oxygen Given BIPAP 02/17/23 18:29 Sodium 136 mmol/L (136-145) 02/20/23 05:48 Potassium 4.0 mmol/L (3.5-5.1) 02/20/23 05:48 Chloride 95 mmol/L (98-107) L 02/20/23 05:48 Carbon Dioxide 31 mmol/L (21-32) 02/20/23 05:48 Anion Gap 10 (3-11) 02/20/23 05:48 BUN 17 mg/dl (6-23) 02/20/23 05:48 Creatinine 0.51 mg/dl (0.6-1.2) L 02/20/23 05:48 Est Cr Clr Drug Dosing 112.6 ml/min 02/20/23 05:48 Est GFR ( Amer) 116.1 ml/min 02/20/23 05:48 Est GFR (Non-Af Amer) 100.2 ml/min 02/20/23 05:48 BUN/Creatinine Ratio 33.3 (10-20) H 02/20/23 05:48 Glucose 116 mg/dl (70-99(Fasting)) H 02/20/23 05:48 Calcium 9.3 mg/dl (8.6-10.3) 02/20/23 05:48 Phosphorus 3.6 mg/dl (2.5-4.9) 02/18/23 05:50 Magnesium 2.0 mg/dl (1.7-2.4) 02/20/23 05:48 Total Bilirubin 0.3 mg/dl (0.2-1.0) 02/18/23 05:50 AST 14 U/L (13-39) 02/18/23 05:50 ALT 19 U/L (7-52) 02/18/23 05:50 Alkaline Phosphatase 107 U/L (34-104) H 02/18/23 05:50 Troponin I High Sens 5.7 pg/ml (0-14) 02/17/23 16:00 B-Natriuretic Peptide 45 pg/ml (0-100) 02/19/23 05:41 Total Protein 7.6 gm/dl (6.0-8.3) 02/18/23 05:50 Albumin 4.0 gm/dl (3.4-5.0) 02/18/23 05:50 Globulin 3.6 gm/dl (2.5-4.0) 02/18/23 05:50 Albumin/Globulin Ratio 1.1 (0.9-2) 02/18/23 05:50 Procalcitonin 0.06 ng/ml (0-0.5) 02/19/23 05:41 Urine Color Yellow 02/18/23 Unknown Urine Appearance Clear (Clear) 02/18/23 Unknown Urine pH 5.0 (4.5-7.5) 02/18/23 Unknown Ur Specific [place] 1.016 (1.000-1.030) 02/18/23 Unknown Urine Protein Negative (Negative) 02/18/23 Unknown Urine Glucose (UA) Negative (Negative) 02/18/23 Unknown Urine Ketones Negative (Negative) 02/18/23 Unknown Urine Blood Negative (Negative) 02/18/23 Unknown Urine Nitrite Negative (Negative) 02/18/23 Unknown Urine Bilirubin Negative (Negative) 02/18/23 Unknown Urine Urobilinogen Negative (Negative) 02/18/23 Unknown Ur Leukocyte Esterase Negative (Negative) 02/18/23 Unknown SARS-CoV-2 (PCR) NEGATIVE (Negative) 02/17/23 16:44 Hepatitis C Ab (EIA) NON-REACTIVE (NON-REACTIVE) 02/18/23 05:50 Hep C Ab Signal/Cutoff 0.04 (<1.00) 02/18/23 05:50 Influenza Type A (PCR) Negative (Neg) 02/17/23 16:44 Influenza Type B (PCR) Negative (Neg) 02/17/23 16:44 RSV (RT-PCR) Negative (Neg) 02/17/23 16:44 Impressions Chest X-Ray 02/20/23 10:41 XR chest 1V portable CLINICAL HISTORY: follow up pleurx TECHNIQUE: Single frontal radiograph of the chest was obtained. Comparison: Comparison is made to chest radiograph 02/18/2023 FINDINGS: There is a right lung base pleural catheter. Right lower lobe airspace opacity is seen, minimally improved from prior exam. Cardiac silhouette is stable. Right pleural effusion has somewhat decreased in size. IMPRESSION: 1. Minimal decrease in size of right pleural effusion without evidence of atelectasis in this patient with a right pleural catheter. 2. Right lower lung airspace opacity likely represents improving atelectasis. ACT 112: Negative or not required by law. Electronically signed by: Marco A Dozier M.D. 02/20/2023 11:16 AM (2) COPD (chronic obstructive pulmonary disease) COPD type: unspecified COPD Qualified Code(s): J44.9 - Chronic obstructive pulmonary disease, unspecified (4) Metastatic lung cancer (metastasis from lung to other site) Laterality: unspecified laterality Qualified Code(s): C34.90 - Malignant neoplasm of unspecified part of unspecified bronchus or lung
[2023-02-20] MEDS: PRAVASTATIN SOD 40 MG TAB PO SCH (20:26)
[2023-02-21 05:04] LABS: Basophils # (auto) 0.06 K/uL (0-0.2); Basophils % (auto) 0.5 %; Eosinophils # (auto) 0.37 K/uL (0-0.50); Eosinophils % (auto) 2.8 %; Hematocrit (blood only) 32.3 % (37.0-47.0); Hemoglobin 10.2 g/dl (12.0-16.0); Immature Granulocytes # (auto) 0.11 K/uL (0.01-0.20); Immature Granulocytes % (auto) 0.8 %; Lymphocytes # (auto) 1.07 K/uL (1.2-3.4); Lymphocytes % (auto) 8.2 %; Mean Corpuscular Hgb Conc 31.6 g/dL (32.0-36.0); Mean Corpuscular Volume 91.8 fL (80.0-100.0); Mean Platelet Volume 10.2 fL (9.4-12.4); Monocytes # (auto) 0.98 K/uL (0.11-0.59); Monocytes % (auto) 7.5 %; Neutrophils # (auto) 10.52 K/uL (1.40-6.50); Neutrophils % (auto) 80.2 %; Platelet Count 262 K/uL (130-400); RDW Coefficient of Variation 14.9 % (11.5-14.5); RDW Standard Deviation 49.8 fL (36.4-46.3); Red Blood Count 3.52 M/uL (4.20-5.40); White Blood Count 13.11 K/ul (4.8-10.8)
[2023-02-21 05:12] LABS: Calcium 8.9 mg/dl (8.6-10.3); Creatinine Clr Calc Pharmacy 147.3 ml/min; Est GFR (African American) 126.8 ml/min; Est GFR (Non-African American) 109.4 ml/min; Potassium 3.8 mmol/L (3.5-5.1)
[2023-02-21] MEDS: LEVOTHYROXINE SODIUM 150 MCG TABLET PO SCH (05:35)
[2023-02-21] MEDS: ALBUT/IPRATROP 3MG/0.5MG NEB 3 ML VIAL NEB SCH ×4 (07:44→19:04)
[2023-02-21] MEDS: EZETIMIBE 10 MG TABLET PO SCH (08:34)
[2023-02-21] MEDS: FUROSEMIDE 40 MG/4 ML VIAL IV SCH (08:34)
[2023-02-21] MEDS: amLODIPine BESYLATE 5 MG TAB PO SCH (08:34)
[2023-02-21] MEDS: METOPROLOL SUCC 25MG EXT REL TAB PO SCH ×2 (08:34→20:42)
[2023-02-21] MEDS: POTASSIUM CHLORIDE 10 MEQ TABCR PO SCH (08:35)
[2023-02-21] MEDS: ASPIRIN 81 MG ECTAB PO SCH (08:36)
[2023-02-21] MEDS: FLUTICASONE FUROATE 100MCG 14 PUFFS/INHALER INH SCH (08:37)
[2023-02-21] MEDS: HEPARIN SOD 5,000 UNIT/0.5 ML VIAL SQ SCH ×3 (08:41→20:47)
--- NOTE | 2023-02-21 14:31 | Hospitalist Progress Note ---
Date of Service February 21, 2023 Assessment & Plan (1) Acute on chronic respiratory failure with hypoxia: (2) COPD (chronic obstructive pulmonary disease): (3) Malignant pleural effusion: (4) Metastatic lung cancer (metastasis from lung to other site): Plan: 67-year-old female presents with shortness of breath. New diagnosis of metastatic adenocarcinoma of the lung with mets mets to bone and liver early January 2023. Multiple admission in the last month due to acute hypoxic respiratory failure. She had undergone repeated thoracentesis for right-sided malignant pleural effusion. Chest x-ray on admission personally reviewed; increase in pleural effusion on le ft side compared to previous day Cytology from last admissions thoracentesis showed metastatic adenocarcinoma of pulmonary origin. Status post Pleurx catheter placement on February 18, 2023 Wean down oxygen as tolerated to keep saturation at 88 to 92%. Continue on IV Lasix 40 mg once a day. Pro-Matt negative. Right lower lobe consolidation likely due to malignancy. Just completed antibiotic course. DC antibiotics Patient to follow-up outpatient with radiation oncology and oncology next week. Wean off oxygen as tolerated; she is at 4 L of oxygen at baseline Continue home inhalers for COPD. Not on acute exacerbation for now. Will need home health set up for Pleurx catheter management. Patient reports that her daughters can help her with the Pleurx catheter. (5) BHAVIK on CPAP: Plan: Continue CPAP at night and sleeping during the day (6) HTN (hypertension): Plan: Continue on amlodipine and metoprolol. (7) Diabetes mellitus, type II: Plan: Hold metformin Blood sugar ACHS and SSI (8) CAD (coronary artery disease): Plan: No acute issue. Continue on aspirin (9) HLD (hyperlipidemia): Plan: Continue on Zetia, pravastatin (10) Hypothyroid: Plan: Continue home levothyroxine DVT prophylaxis Heparin CODE STATUS Full Dispositionpatient can be discharged home after she is weaned down to baseline oxygen requirement and home health is set up for Pleurx catheter Plan Time spent evaluating patient, direct bedside care, chart review, placing orders, interpretation of diagnostic studies, discussion with consultants, patient, and family members, as well as other required patient management activities is 60 minutes. Please note the above document was generated using voice recognition software. It may contain grammatical, syntax or spelling errors. Any formal questions or concerns about the content, text or information contained within the body of this dictation should be directly addressed to the provider for clarification Admission and Anticipated Discharge Date Admission Date: February 17, 2023 Subjective Patient seen and examined at bedside. She is sitting up on the bed; not in distress. Requires 5 L of oxygen by nasal cannula. Review of Systems Review of Systems: All systems reviewed & are unremarkable except as noted in Subjective Physical Exam Physical Exam: Constitutional: WD/WN, vitals as above, NAD, sitting up in bed, pleasant, conversing easily Respiratory: Decreased breath sound at right lower base. PleurX catheter in situ Cardiovascular: RRR, no murmur, no edema Vessels: no JVD or carotid bruit Chest: normal inspection of chest Abdomen: normal bowel sounds, soft, nontender, no hepatosplenomegaly Musculoskeletal: no cyanosis or clubbing, extremities motor strength 5/5 Skin: no rashes, warm and dry normal turgor Neurologic: PERRL, EOMI, accommodation nl, no face palsy, no dysarthria CN's II- XI intact bilaterally and moves all extremities Psychiatric: A+Ox3, euthymic affect Lymphatic: no cervical or axillary lymphadenopathy : deferred Results & Data Results & Data Vital Signs (Past 12 Hours) Vital Signs Temp Pulse Pulse Resp BP Pulse Ox O2 Del Method 02/21/23 11:50 36.4 C L 78 18 139/88 93 Nasal Cannula 02/21/23 10:56 74 18 89 L CPAP 02/21/23 10:13 63 02/21/23 10:13 Nasal Cannula 02/21/23 07:48 36.4 C L 61 19 107/65 96 Nasal Cannula 02/21/23 07:45 63 18 95 Nasal Cannula 02/21/23 04:02 37 C 78 16 114/62 96 Nasal Cannula O2 Flow Rate 02/21/23 11:50 5 02/21/23 10:56 02/21/23 10:13 02/21/23 10:13 5 02/21/23 07:48 5 02/21/23 07:45 5 02/21/23 04:02 5 Laboratory Results Laboratory Results WBC 13.11 K/ul (4.8-10.8) H 02/21/23 04:36 RBC 3.52 M/uL (4.20-5.40) L 02/21/23 04:36 Hgb 10.2 g/dl (12.0-16.0) L 02/21/23 04:36 Hct 32.3 % (37.0-47.0) L 02/21/23 04:36 MCV 91.8 fL (80.0-100.0) 02/21/23 04:36 MCH 29.0 pg (25.0-34.0) 02/21/23 04:36 MCHC 31.6 g/dL (32.0-36.0) L 02/21/23 04:36 RDW Std Deviation 49.8 fL (36.4-46.3) H 02/21/23 04:36 RDW Coeff of Naa 14.9 % (11.5-14.5) H 02/21/23 04:36 Plt Count 262 K/uL (130-400) 02/21/23 04:36 MPV 10.2 fL (9.4-12.4) 02/21/23 04:36 Immature Gran % (Auto) 0.8 % 02/21/23 04:36 Neut % (Auto) 80.2 % 02/21/23 04:36 Lymph % (Auto) 8.2 % 02/21/23 04:36 [place] % (Auto) 7.5 % 02/21/23 04:36 Eos % (Auto) 2.8 % 02/21/23 04:36 Baso % (Auto) 0.5 % 02/21/23 04:36 Neut # (Auto) 10.52 K/uL (1.40-6.50) H 02/21/23 04:36 Lymph # (Auto) 1.07 K/uL (1.2-3.4) L 02/21/23 04:36 [place] # (Auto) 0.98 K/uL (0.11-0.59) H 02/21/23 04:36 Eos # (Auto) 0.37 K/uL (0-0.50) 02/21/23 04:36 Baso # (Auto) 0.06 K/uL (0-0.2) 02/21/23 04:36 Immature Gran # (Auto) 0.11 K/uL (0.01-0.20) 02/21/23 04:36 Polychromasia 1+ 02/18/23 05:50 PT 11.1 Seconds (9.0-12.0) 02/18/23 09:39 INR 1.0 (0.9-1.1) 02/18/23 09:39 ABG pH 7.45 (7.35-7.45) 02/17/23 18:29 ABG pCO2 56 mmHg (35-46) H 02/17/23 18:29 ABG pO2 75 mmHg (80-95) L 02/17/23 18:29 ABG HCO3 39 mmol/L (19-24) H 02/17/23 18:29 ABG O2 Saturation 95.9 % (90-95) H 02/17/23 18:29 ABG Base Excess 12.7 mEq/L (-9-1.8) H 02/17/23 18:29 Christian Test Pos (Pos) 02/17/23 18:29 VBG pH 7.44 (7.36-7.41) H 02/17/23 17:21 VBG pCO2 57 mmHg (38-50) H 02/17/23 17:21 VBG pO2 124 mmHg 02/17/23 17:21 VBG HCO3 39 mmol/L 02/17/23 17:21 VBG O2 Saturation 98.4 % 02/17/23 17:21 VBG Base Excess 12.1 mEq/L 02/17/23 17:21 Oxygen Given BIPAP 02/17/23 18:29 Sodium 134 mmol/L (136-145) L 02/21/23 04:36 Potassium 3.8 mmol/L (3.5-5.1) 02/21/23 04:36 Chloride 96 mmol/L (98-107) L 02/21/23 04:36 Carbon Dioxide 33 mmol/L (21-32) H 02/21/23 04:36 Anion Gap 5 (3-11) 02/21/23 04:36 BUN 16 mg/dl (6-23) 02/21/23 04:36 Creatinine 0.39 mg/dl (0.6-1.2) L 02/21/23 04:36 Est Cr Clr Drug Dosing 147.3 ml/min 02/21/23 04:36 Est GFR ( Amer) 126.8 ml/min 02/21/23 04:36 Est GFR (Non-Af Amer) 109.4 ml/min 02/21/23 04:36 BUN/Creatinine Ratio 41.0 (10-20) H 02/21/23 04:36 Glucose 134 mg/dl (70-99(Fasting)) H 02/21/23 04:36 Calcium 8.9 mg/dl (8.6-10.3) 02/21/23 04:36 Phosphorus 3.6 mg/dl (2.5-4.9) 02/18/23 05:50 Magnesium 2.0 mg/dl (1.7-2.4) 02/20/23 05:48 Total Bilirubin 0.3 mg/dl (0.2-1.0) 02/18/23 05:50 AST 14 U/L (13-39) 02/18/23 05:50 ALT 19 U/L (7-52) 02/18/23 05:50 Alkaline Phosphatase 107 U/L (34-104) H 02/18/23 05:50 Troponin I High Sens 5.7 pg/ml (0-14) 02/17/23 16:00 B-Natriuretic Peptide 45 pg/ml (0-100) 02/19/23 05:41 Total Protein 7.6 gm/dl (6.0-8.3) 02/18/23 05:50 Albumin 4.0 gm/dl (3.4-5.0) 02/18/23 05:50 Globulin 3.6 gm/dl (2.5-4.0) 02/18/23 05:50 Albumin/Globulin Ratio 1.1 (0.9-2) 02/18/23 05:50 Procalcitonin 0.06 ng/ml (0-0.5) 02/19/23 05:41 Urine Color Yellow 02/18/23 Unknown Urine Appearance Clear (Clear) 02/18/23 Unknown Urine pH 5.0 (4.5-7.5) 02/18/23 Unknown Ur Specific [place] 1.016 (1.000-1.030) 02/18/23 Unknown Urine Protein Negative (Negative) 02/18/23 Unknown Urine Glucose (UA) Negative (Negative) 02/18/23 Unknown Urine Ketones Negative (Negative) 02/18/23 Unknown Urine Blood Negative (Negative) 02/18/23 Unknown Urine Nitrite Negative (Negative) 02/18/23 Unknown Urine Bilirubin Negative (Negative) 02/18/23 Unknown Urine Urobilinogen Negative (Negative) 02/18/23 Unknown Ur Leukocyte Esterase Negative (Negative) 02/18/23 Unknown SARS-CoV-2 (PCR) NEGATIVE (Negative) 02/17/23 16:44 Hepatitis C Ab (EIA) NON-REACTIVE (NON-REACTIVE) 02/18/23 05:50 Hep C Ab Signal/Cutoff 0.04 (<1.00) 02/18/23 05:50 Influenza Type A (PCR) Negative (Neg) 02/17/23 16:44 Influenza Type B (PCR) Negative (Neg) 02/17/23 16:44 RSV (RT-PCR) Negative (Neg) 02/17/23 16:44 Impressions Chest X-Ray 02/20/23 10:41 XR chest 1V portable CLINICAL HISTORY: follow up pleurx TECHNIQUE: Single frontal radiograph of the chest was obtained. Comparison: Comparison is made to chest radiograph 02/18/2023 FINDINGS: There is a right lung base pleural catheter. Right lower lobe airspace opacity is seen, minimally improved from prior exam. Cardiac silhouette is stable. Right pleural effusion has somewhat decreased in size. IMPRESSION: 1. Minimal decrease in size of right pleural effusion without evidence of atelectasis in this patient with a right pleural catheter. 2. Right lower lung airspace opacity likely represents improving atelectasis. ACT 112: Negative or not required by law. Electronically signed by: Marco A Dozier M.D. 02/20/2023 11:16 AM (2) COPD (chronic obstructive pulmonary disease) COPD type: unspecified COPD Qualified Code(s): J44.9 - Chronic obstructive pulmonary disease, unspecified (4) Metastatic lung cancer (metastasis from lung to other site) Laterality: unspecified laterality Qualified Code(s): C34.90 - Malignant neoplasm of unspecified part of unspecified bronchus or lung
[2023-02-21] MEDS: ACETAMINOPHEN 325 MG TAB PO PRN (14:39)
[2023-02-21] MEDS: PRAVASTATIN SOD 40 MG TAB PO SCH (20:42)
[2023-02-22 05:20] LABS: Basophils # (auto) 0.06 K/uL (0-0.2); Basophils % (auto) 0.5 %; Eosinophils # (auto) 0.35 K/uL (0-0.50); Eosinophils % (auto) 2.8 %; Hematocrit (blood only) 34.1 % (37.0-47.0); Hemoglobin 10.7 g/dl (12.0-16.0); Immature Granulocytes # (auto) 0.11 K/uL (0.01-0.20); Immature Granulocytes % (auto) 0.9 %; Lymphocytes # (auto) 1.03 K/uL (1.2-3.4); Lymphocytes % (auto) 8.1 %; Mean Corpuscular Hemoglobin 28.7 pg (25.0-34.0); Mean Corpuscular Hgb Conc 31.4 g/dL (32.0-36.0); Mean Corpuscular Volume 91.4 fL (80.0-100.0); Mean Platelet Volume 10.5 fL (9.4-12.4); Monocytes # (auto) 0.96 K/uL (0.11-0.59); Monocytes % (auto) 7.6 %; Neutrophils # (auto) 10.18 K/uL (1.40-6.50); Neutrophils % (auto) 80.1 %; Platelet Count 284 K/uL (130-400); RDW Coefficient of Variation 14.6 % (11.5-14.5); RDW Standard Deviation 49.1 fL (36.4-46.3); Red Blood Count 3.73 M/uL (4.20-5.40); White Blood Count 12.69 K/ul (4.8-10.8)
[2023-02-22 05:35] LABS: Calcium 8.9 mg/dl (8.6-10.3); Creatinine Clr Calc Pharmacy 124.3 ml/min; Est GFR (African American) 120.1 ml/min; Est GFR (Non-African American) 103.7 ml/min
[2023-02-22] MEDS: LEVOTHYROXINE SODIUM 150 MCG TABLET PO SCH (06:19)
[2023-02-22] MEDS: ALBUT/IPRATROP 3MG/0.5MG NEB 3 ML VIAL NEB SCH ×4 (07:04→19:19)
[2023-02-22] MEDS: amLODIPine BESYLATE 5 MG TAB PO SCH (08:45)
[2023-02-22] MEDS: METOPROLOL SUCC 25MG EXT REL TAB PO SCH ×2 (08:46→20:09)
[2023-02-22] MEDS: POTASSIUM CHLORIDE 10 MEQ TABCR PO SCH (08:47)
[2023-02-22] MEDS: FUROSEMIDE 40 MG/4 ML VIAL IV SCH (08:47)
[2023-02-22] MEDS: EZETIMIBE 10 MG TABLET PO SCH (08:48)
[2023-02-22] MEDS: FLUTICASONE FUROATE 100MCG 14 PUFFS/INHALER INH SCH (08:48)
[2023-02-22] MEDS: ASPIRIN 81 MG ECTAB PO SCH (08:48)
[2023-02-22] MEDS: ACETAMINOPHEN 325 MG TAB PO PRN ×2 (08:53→23:40)
[2023-02-22] MEDS: HEPARIN SOD 5,000 UNIT/0.5 ML VIAL SQ SCH ×2 (08:54→20:11)
--- NOTE | 2023-02-22 12:43 | Hospitalist Progress Note ---
Date of Service February 22, 2023 Assessment & Plan (1) Acute on chronic respiratory failure with hypoxia: (2) COPD (chronic obstructive pulmonary disease): (3) Malignant pleural effusion: (4) Metastatic lung cancer (metastasis from lung to other site): Plan: 67-year-old female presents with shortness of breath. New diagnosis of metastatic adenocarcinoma of the lung with mets mets to bone and liver early January 2023. Multiple admission in the last month due to acute hypoxic respiratory failure. She had undergone repeated thoracentesis for right-sided malignant pleural effusion. Chest x-ray on admission personally reviewed; increase in pleural effusion on le ft side compared to previous day Cytology from last admissions thoracentesis showed metastatic adenocarcinoma of pulmonary origin. Status post Pleurx catheter placement on February 18, 2023 Wean down oxygen as tolerated to keep saturation at 88 to 92%. Continue on IV Lasix 40 mg once a day. Pro-Matt negative. Right lower lobe consolidation likely due to malignancy. Just completed antibiotic course. DC antibiotics Patient to follow-up outpatient with radiation oncology and oncology later this week. Wean off oxygen as tolerated; she is at 4 L of oxygen at baseline Continue home inhalers for COPD. Not on acute exacerbation for now. Will need home health set up for Pleurx catheter management. Patient reports that her daughters can help her with the Pleurx catheter. (5) BHAVIK on CPAP: Plan: Continue CPAP at night and sleeping during the day (6) HTN (hypertension): Plan: Continue on amlodipine and metoprolol. (7) Diabetes mellitus, type II: Plan: Hold metformin Blood sugar ACHS and SSI (8) CAD (coronary artery disease): Plan: No acute issue. Continue on aspirin (9) HLD (hyperlipidemia): Plan: Continue on Zetia, pravastatin (10) Hypothyroid: Plan: Continue home levothyroxine DVT prophylaxis Heparin CODE STATUS Full Dispositionpatient can be discharged home after she is weaned down to baseline oxygen requirement and home health is set up for Pleurx catheter. Requires continued inpatient monitoring due to acute on chronic hypoxic respiratory failure. Plan Time spent evaluating patient, direct bedside care, chart review, placing orders, interpretation of diagnostic studies, discussion with consultants, patient, and family members, as well as other required patient management activities is 60 minutes. Please note the above document was generated using voice recognition software. It may contain grammatical, syntax or spelling errors. Any formal questions or concerns about the content, text or information contained within the body of this dictation should be directly addressed to the provider for clarification Admission and Anticipated Discharge Date Admission Date: February 17, 2023 Subjective Patient seen and examined at bedside. She is saturating well on 5 L of nasal cannula; not in any distress. She continues to desaturate on minimal exertion Review of Systems Review of Systems: All systems reviewed & are unremarkable except as noted in Subjective Physical Exam Physical Exam: Constitutional: WD/WN, vitals as above, NAD, sitting up in bed, pleasant, conversing easily Respiratory: Decreased breath sound at right lower base. PleurX catheter in situ Cardiovascular: RRR, no murmur, no edema Vessels: no JVD or carotid bruit Chest: normal inspection of chest Abdomen: normal bowel sounds, soft, nontender, no hepatosplenomegaly Musculoskeletal: no cyanosis or clubbing, extremities motor strength 5/5 Skin: no rashes, warm and dry normal turgor Neurologic: PERRL, EOMI, accommodation nl, no face palsy, no dysarthria CN's II- XI intact bilaterally and moves all extremities Psychiatric: A+Ox3, euthymic affect Lymphatic: no cervical or axillary lymphadenopathy : deferred Results & Data Results & Data Vital Signs (Past 12 Hours) Vital Signs Temp Pulse Pulse Resp BP Pulse Ox O2 Del Method 02/22/23 11:46 36.5 C 72 20 109/70 91 Nasal Cannula 02/22/23 11:02 81 16 95 Nasal Cannula 02/22/23 10:00 61 02/22/23 10:00 Nasal Cannula 02/22/23 08:13 65 20 97/58 L 93 Nasal Cannula 02/22/23 07:05 62 18 94 Nasal Cannula 02/22/23 03:00 36.4 C L 61 20 120/77 90 Nasal Cannula O2 Flow Rate 02/22/23 11:46 5 02/22/23 11:02 5 02/22/23 10:00 02/22/23 10:00 5 02/22/23 08:13 5 02/22/23 07:05 5 02/22/23 03:00 5 Laboratory Results Laboratory Results WBC 12.69 K/ul (4.8-10.8) H 02/22/23 04:37 RBC 3.73 M/uL (4.20-5.40) L 02/22/23 04:37 Hgb 10.7 g/dl (12.0-16.0) L 02/22/23 04:37 Hct 34.1 % (37.0-47.0) L 02/22/23 04:37 MCV 91.4 fL (80.0-100.0) 02/22/23 04:37 MCH 28.7 pg (25.0-34.0) 02/22/23 04:37 MCHC 31.4 g/dL (32.0-36.0) L 02/22/23 04:37 RDW Std Deviation 49.1 fL (36.4-46.3) H 02/22/23 04:37 RDW Coeff of Naa 14.6 % (11.5-14.5) H 02/22/23 04:37 Plt Count 284 K/uL (130-400) 02/22/23 04:37 MPV 10.5 fL (9.4-12.4) 02/22/23 04:37 Immature Gran % (Auto) 0.9 % 02/22/23 04:37 Neut % (Auto) 80.1 % 02/22/23 04:37 Lymph % (Auto) 8.1 % 02/22/23 04:37 [place] % (Auto) 7.6 % 02/22/23 04:37 Eos % (Auto) 2.8 % 02/22/23 04:37 Baso % (Auto) 0.5 % 02/22/23 04:37 Neut # (Auto) 10.18 K/uL (1.40-6.50) H 02/22/23 04:37 Lymph # (Auto) 1.03 K/uL (1.2-3.4) L 02/22/23 04:37 [place] # (Auto) 0.96 K/uL (0.11-0.59) H 02/22/23 04:37 Eos # (Auto) 0.35 K/uL (0-0.50) 02/22/23 04:37 Baso # (Auto) 0.06 K/uL (0-0.2) 02/22/23 04:37 Immature Gran # (Auto) 0.11 K/uL (0.01-0.20) 02/22/23 04:37 Polychromasia 1+ 02/18/23 05:50 PT 11.1 Seconds (9.0-12.0) 02/18/23 09:39 INR 1.0 (0.9-1.1) 02/18/23 09:39 ABG pH 7.45 (7.35-7.45) 02/17/23 18:29 ABG pCO2 56 mmHg (35-46) H 02/17/23 18:29 ABG pO2 75 mmHg (80-95) L 02/17/23 18:29 ABG HCO3 39 mmol/L (19-24) H 02/17/23 18:29 ABG O2 Saturation 95.9 % (90-95) H 02/17/23 18:29 ABG Base Excess 12.7 mEq/L (-9-1.8) H 02/17/23 18:29 Christian Test Pos (Pos) 02/17/23 18:29 VBG pH 7.44 (7.36-7.41) H 02/17/23 17:21 VBG pCO2 57 mmHg (38-50) H 02/17/23 17:21 VBG pO2 124 mmHg 02/17/23 17:21 VBG HCO3 39 mmol/L 02/17/23 17:21 VBG O2 Saturation 98.4 % 02/17/23 17:21 VBG Base Excess 12.1 mEq/L 02/17/23 17:21 Oxygen Given BIPAP 02/17/23 18:29 Sodium 134 mmol/L (136-145) L 02/22/23 04:37 Potassium 4.0 mmol/L (3.5-5.1) 02/22/23 04:37 Chloride 96 mmol/L (98-107) L 02/22/23 04:37 Carbon Dioxide 34 mmol/L (21-32) H 02/22/23 04:37 Anion Gap 4 (3-11) 02/22/23 04:37 BUN 17 mg/dl (6-23) 02/22/23 04:37 Creatinine 0.46 mg/dl (0.6-1.2) L 02/22/23 04:37 Est Cr Clr Drug Dosing 124.3 ml/min 02/22/23 04:37 Est GFR ( Amer) 120.1 ml/min 02/22/23 04:37 Est GFR (Non-Af Amer) 103.7 ml/min 02/22/23 04:37 BUN/Creatinine Ratio 37.0 (10-20) H 02/22/23 04:37 Glucose 120 mg/dl (70-99(Fasting)) H 02/22/23 04:37 Calcium 8.9 mg/dl (8.6-10.3) 02/22/23 04:37 Phosphorus 3.6 mg/dl (2.5-4.9) 02/18/23 05:50 Magnesium 2.0 mg/dl (1.7-2.4) 02/20/23 05:48 Total Bilirubin 0.3 mg/dl (0.2-1.0) 02/18/23 05:50 AST 14 U/L (13-39) 02/18/23 05:50 ALT 19 U/L (7-52) 02/18/23 05:50 Alkaline Phosphatase 107 U/L (34-104) H 02/18/23 05:50 Troponin I High Sens 5.7 pg/ml (0-14) 02/17/23 16:00 B-Natriuretic Peptide 45 pg/ml (0-100) 02/19/23 05:41 Total Protein 7.6 gm/dl (6.0-8.3) 02/18/23 05:50 Albumin 4.0 gm/dl (3.4-5.0) 02/18/23 05:50 Globulin 3.6 gm/dl (2.5-4.0) 02/18/23 05:50 Albumin/Globulin Ratio 1.1 (0.9-2) 02/18/23 05:50 Procalcitonin 0.06 ng/ml (0-0.5) 02/19/23 05:41 Urine Color Yellow 02/18/23 Unknown Urine Appearance Clear (Clear) 02/18/23 Unknown Urine pH 5.0 (4.5-7.5) 02/18/23 Unknown Ur Specific [place] 1.016 (1.000-1.030) 02/18/23 Unknown Urine Protein Negative (Negative) 02/18/23 Unknown Urine Glucose (UA) Negative (Negative) 02/18/23 Unknown Urine Ketones Negative (Negative) 02/18/23 Unknown Urine Blood Negative (Negative) 02/18/23 Unknown Urine Nitrite Negative (Negative) 02/18/23 Unknown Urine Bilirubin Negative (Negative) 02/18/23 Unknown Urine Urobilinogen Negative (Negative) 02/18/23 Unknown Ur Leukocyte Esterase Negative (Negative) 02/18/23 Unknown SARS-CoV-2 (PCR) NEGATIVE (Negative) 02/17/23 16:44 Hepatitis C Ab (EIA) NON-REACTIVE (NON-REACTIVE) 02/18/23 05:50 Hep C Ab Signal/Cutoff 0.04 (<1.00) 02/18/23 05:50 Influenza Type A (PCR) Negative (Neg) 02/17/23 16:44 Influenza Type B (PCR) Negative (Neg) 02/17/23 16:44 RSV (RT-PCR) Negative (Neg) 02/17/23 16:44 Impressions Chest X-Ray 02/20/23 10:41 XR chest 1V portable CLINICAL HISTORY: follow up pleurx TECHNIQUE: Single frontal radiograph of the chest was obtained. Comparison: Comparison is made to chest radiograph 02/18/2023 FINDINGS: There is a right lung base pleural catheter. Right lower lobe airspace opacity is seen, minimally improved from prior exam. Cardiac silhouette is stable. Right pleural effusion has somewhat decreased in size. IMPRESSION: 1. Minimal decrease in size of right pleural effusion without evidence of atelectasis in this patient with a right pleural catheter. 2. Right lower lung airspace opacity likely represents improving atelectasis. ACT 112: Negative or not required by law. Electronically signed by: Marco A Dozier M.D. 02/20/2023 11:16 AM (2) COPD (chronic obstructive pulmonary disease) COPD type: unspecified COPD Qualified Code(s): J44.9 - Chronic obstructive pulmonary disease, unspecified (4) Metastatic lung cancer (metastasis from lung to other site) Laterality: unspecified laterality Qualified Code(s): C34.90 - Malignant neoplasm of unspecified part of unspecified bronchus or lung
[2023-02-22] MEDS: PRAVASTATIN SOD 40 MG TAB PO SCH (20:09)
[2023-02-23] MEDS: LEVOTHYROXINE SODIUM 150 MCG TABLET PO SCH (05:55)
[2023-02-23] MEDS: ACETAMINOPHEN 325 MG TAB PO PRN (06:06)
[2023-02-23 06:22] LABS: Calcium 8.9 mg/dl (8.6-10.3); Creatinine Clr Calc Pharmacy 114.4 ml/min; Est GFR (African American) 116.9 ml/min; Est GFR (Non-African American) 100.9 ml/min; Potassium 3.8 mmol/L (3.5-5.1)
[2023-02-23] MEDS: ALBUT/IPRATROP 3MG/0.5MG NEB 3 ML VIAL NEB SCH ×3 (07:11→15:33)
[2023-02-23] MEDS: amLODIPine BESYLATE 5 MG TAB PO SCH (11:13)
[2023-02-23] MEDS: EZETIMIBE 10 MG TABLET PO SCH (11:13)
[2023-02-23] MEDS: ASPIRIN 81 MG ECTAB PO SCH (11:13)
[2023-02-23] MEDS: FUROSEMIDE 40 MG/4 ML VIAL IV SCH (11:14)
[2023-02-23] MEDS: FLUTICASONE FUROATE 100MCG 14 PUFFS/INHALER INH SCH (11:14)
[2023-02-23] MEDS: HEPARIN SOD 5,000 UNIT/0.5 ML VIAL SQ SCH (11:14)
[2023-02-23] MEDS: METOPROLOL SUCC 25MG EXT REL TAB PO SCH (11:15)
[2023-02-23] MEDS: POTASSIUM CHLORIDE 10 MEQ TABCR PO SCH (11:15)
[2023-02-23 12:22] VITALS: O2SAT 95
--- NOTE | 2023-02-23 13:56 | Discharge Summary ---
Date of Service February 23, 2023 Admission HPI Per Admitting Provider She is a 68 years old obese female with significant past medical history of metastatic adenocarcinoma of the lung with right pleural effusion, COPD, BHAVIK on CPAP, chronic congestive heart failure, hypertension, diabetes, hyperlipidemia apparently has been complaining of more shortness of breath at rest and with minimal exertion with significant desaturation since yesterday. She usually takes 4 L of oxygen to maintain saturation at home but as of yesterday her saturation is getting around 70s and has been requiring more than 4 L to maintain saturation. Denies any fever and or chills but she does have chronic cough without any phlegm. Denies any chest pain and/or palpitation. No abdominal distention, pain, nausea and or vomiting. She initially required nonrebreather but during my examination she was on BiPAP and was saturating at 92% and is getting minimally improved. Her chest x-ray did not show increasing infiltration/effusion more on the right side. She was started with intravenous Solu-Medrol, intravenous antibiotic and also Lasix and was admitted to telemetry unit for continuation of care Admission Exam Per Admitting Provider Physical Exam: Lying in bed with BiPAP and minimally shortness of breath at rest Constitutional: well developed, well nourished, + ill appearing and + obese Eyes: PERRL, conjunctivae normal, anicteric sclerae ENMT: external ear and nose normal, oropharynx normal Neck: trachea midline, no thyromegaly Respiratory: + respiratory distress (Mild to moderate shortness of breath at rest 1 BiPAP) Auscultation: + diminished lung sounds (More on the right base than the left) and + crackles (Bibasally) Cardiovascular: Rate/Rhythm: regular rate and regular rhythm; not tachycardic Heart Sounds: normal S1 and normal S2; no murmur Extremities: + edema (Trace edema bilaterally) Gastrointestinal (Abdomen): Inspection/Auscultation: + abdomen distended and normal bowel sounds Percussion/Palpation: abdomen soft; abdomen nontender Musculoskeletal: No acute arthritis involving any of the joint Neurologic: normal touch/pain/proprioception and moves all extremities; no focal motor deficits Psychiatric: A+Ox3, euthymic affect Lymphatic: no cervical or axillary lymphadenopathy Principal Diagnosis Malignant pleural effusion Status post Pleurx catheter placement on February 18, 2023 Discharge Exam Constitutional: WD/WN, vitals as above, NAD, sitting up in bed, pleasant, conversing easily Respiratory: Decreased breath sound at right lower base. PleurX catheter in situ Cardiovascular: RRR, no murmur, no edema Vessels: no JVD or carotid bruit Chest: normal inspection of chest Abdomen: normal bowel sounds, soft, nontender, no hepatosplenomegaly Musculoskeletal: no cyanosis or clubbing, extremities motor strength 5/5 Skin: no rashes, warm and dry normal turgor Neurologic: PERRL, EOMI, accommodation nl, no face palsy, no dysarthria CN's II- XI intact bilaterally and moves all extremities Psychiatric: A+Ox3, euthymic affect Lymphatic: no cervical or axillary lymphadenopathy : deferred Discharge Data Allergies Allergy/AdvReac Type Severity Reaction Status Date / Time tetracycline AdvReac Mild HEADACHE Verified 02/17/23 17:37 Consultations 02/17/23 17:14 ED Decision to Admit Stat 02/18/23 07:28 Consult Pulmonology Routine 02/18/23 07:42 Consult Palliative Care Routine Ordered Studies 02/18/23 07:54 sono, invasive monitoring [US point of care ultrasound] Urgent Hospital Course (1) Acute on chronic respiratory failure with hypoxia: (2) COPD (chronic obstructive pulmonary disease): (3) Malignant pleural effusion: (4) Metastatic lung cancer (metastasis from lung to other site): (5) BHAVIK on CPAP: (6) HTN (hypertension): (7) Diabetes mellitus, type II: (8) CAD (coronary artery disease): (9) HLD (hyperlipidemia): (10) Hypothyroid: Plan 67-year-old female presents with shortness of breath. New diagnosis of metastatic adenocarcinoma of the lung with mets mets to bone and liver early January 2023. Multiple admission in the last month due to acute hypoxic respiratory failure. She had undergone repeated thoracentesis for right-sided malignant pleural effusion. Chest x-ray on admission personally reviewed; increase in pleural effusion Cytology from last admissions thoracentesis showed metastatic adenocarcinoma of pulmonary origin. Patient was admitted to telemetry floor and pulmonology was consulted. Status post right sided Pleurx catheter placement on February 18, 2023 Patient was drained from Pleurx catheter every other day during the hospi talization She was diuresed with IV Lasix 40 mg once daily Patient required 5 L of oxygen for last few days of the admission Home health was set up and her daughter and [id number] will help her with the Pleurx catheter drainage every other day Patient has follow-up set up with PCP, pulmonology, radiation oncology and oncology All her home medications were continued at its before. Please note the above document was generated using voice recognition software. It may contain grammatical, syntax or spelling errors. Any formal questions or concerns about the content, text or information contained within the body of this dictation should be directly addressed to the provider for clarification Total Time Total Time Spent Total Time Spent (In Minutes): 45 Total Time Includes: Examination of the Patient, Discharge Planning, Medication Reconciliation, Communication With Other Providers and Other Discharge Plan Discharge Items Patient Disposition: Home - Self-Care Reason For Visit: SOB Discharge Diagnosis: Malignant right-sided pleural effusion status post Pleurx catheter placement on February 18, 2023 Activity: Resume your previous activity Non-emergency contact: Primary Care Provider Call non-emergency contact if: you have any medication questions Follow-up/Referrals: Jonathan So MD [Physician] - 02/27/23 11:30 am (Pulmonary nurse visit for suture removal at [facility] Bipin Ramos MD [Primary Care Provider] - (Date & Time 02/25/2023 11:00 AM Provider Bipin Ramos MD Department Family Practice [facility] ) Diet: Regular Addtl Attending Provider Instructions: You were admitted to the hospital with increasing shortness of breath. You underwent Pleurx catheter placement on February 18, 2023. You need to have your catheter drained every other day. Please follow-up with pulmonology as scheduled on February 27. Please follow-up with your primary care doctor as scheduled. Pending Studies at Discharge: No Stand-Alone Forms: [employer], Smoking Cessation Medications and DC Order Prescriptions: Continued albuterol sulfate [Ventolin HFA] 90 mcg/actuation HFA aerosol inhaler 2 puff inhalation Q4 PRN (Reason: Wheezing) metoprolol succinate 25 mg tablet extended release 24 hr 12.5 mg PO BID aspirin 81 mg Tablet,Delayed Release (Dr/Ec) 81 mg PO QAM furosemide [Lasix] 40 mg tablet 40 mg PO QAM Qty: 30 0RF pravastatin 40 mg tablet 40 mg PO HS albuterol sulfate 2.5 mg/0.5 mL solution for nebulization 2.5 mg inhalation Q8H PRN (Reason: bronchospasm) Qty: 30 0RF Rx Instructions: Has not been able to get nebulizer yet. furosemide [Lasix] 20 mg tablet 20 mg PO DAILYBL Qty: 30 0RF Rx Instructions: TAKE BEFORE LUNCH metformin 500 mg tablet 500 mg PO BIDM amlodipine 2.5 mg tablet 2.5 mg PO DAILY ezetimibe 10 mg tablet 10 mg PO DAILY Black Elderberry 1 tab PO QAM levothyroxine 150 mcg tablet 150 mcg PO QAM turmeric 400 mg Capsule 400 mg PO DAILY potassium chloride 10 mEq tablet extended release 10 meq PO DAILY Qty: 30 0RF Trelegy Ellipta 100-62.5-25 mcg blister with device 1 inh INHALATION DAILY Discharge Orders: Discharge Order (Routine); Ordered 02/23/23 Ordered By: Arnulfo Zimmer Admission Data Admit Date/Time: 02/17/23 17:44 Attending Provider: Arnulfo Zimmer Admit Provider: Vidal Elkins Primary Care Provider: Bipin Ramos Other Providers: Vidal Elkins ; Jonathan So ; Shira Kothari ; [facility]
[2023-02-23 15:15] VITALS: BP 120/72; PULSE 89; TEMP 97.9
== END 2023-02-23 15:40 | disposition home health service (06) | DRG 180 ==
LOC: ED 15:37 → SUATTDRO 17:44 → 4W 17:44

== ENCOUNTER 2023-03-17 11:06 | Inpatient (IN) ==
--- NOTE | 2023-03-17 11:24 | XRay Report ---
SINGLE VIEW CHEST CLINICAL HISTORY: Dyspnea. FINDINGS: An AP, portable, upright chest radiograph is compared to study dated 02/20/2023. Correlation is made with chest CT dated 01/30/2023. The heart is enlarged noting atherosclerotic calcification of the thoracic aorta. There is pulmonary vascular congestion. A pleural catheter is again seen at the r ight lung base. There is a moderate layering right pleural effusion with consolidation of the right l ower lung. Trace pleural effusion is suspected on the left. Emphysema and chronic interstitial thicke omi is similar to previous. No pneumothorax is seen. The skeletal structures are osteopenic. The bon y thorax is grossly intact. IMPRESSION: 1. Cardiomegaly and emphysema with pulmonary vascular congestion. 2. A pleural catheter since the right lung base. There is a layering or pleural effusion with dense c onsolidation of the right lung base, which has increased from 02/20/2023. Radiographic follow-up to res olution is recommended. 3. Trace pleural effusion is suggested on the left. ACT 112: Negative or not required by law. Electronically signed by: Aris Cobian M.D. 03/17/2023 11:23 AM
[2023-03-17] MEDS ORDERED: FUROSEMIDE 40 MG/4 ML VIAL IV ONE (11:40)
--- NOTE | 2023-03-17 11:40 | Emergency Department Note ---
Impression & Plan Respiratory failure, Hypoxemia, Acute on chronic respiratory failure with hypoxia ED Provider Note Provider: Chencho Rebolledo MD DATE OF SERVICE: 03/17/2023 CHIEF COMPLAINT: Shortness of breath HISTORY OF PRESENT ILLNESS: Patient is a 68-year-old female history of adenocarcinoma of the lung, COPD on oxygen, CHF, hypertension, and diabetes presenting here via ambulance today with worsening shortness of breath. Hospitalized here several weeks ago. Uses BiPAP at night. On home oxygen during the day by her report. For EMS received 2 DuoNebs 120 mg Solu-Medrol and placed on BiPAP with some improvement of her symptoms. Denies significant pain. Ports maybe little bit increased swelling. Has been using her right Pleurx catheter placed for effusion during last admission having it drained every other day. Last drained on Thursday. Patient reports some improvement with the treatment thus far. Denies confusion. Denies GI pain or upset. Did not take her morning medicines yet today PAST MEDICAL HISTORY: As noted above MEDICATIONS: Reviewed home medications SOCIAL HISTORY: Smoker PHYSICAL EXAM: GENERAL: alert and oriented in no acute distress on stretcher seated upright with BiPAP mask in place Head: normocephalic and atraumatic EYES: No injection, discharge or icterus. NECK: Trachea midline. Supple. ENT: Mucous membranes pink and moist. LUNGS: Airway patent. No retractions but some tachypnea. Scattered wheeze on exam with a right Pleurx catheter noted in the right axilla. HEART: Regular rate and rhythm. ABDOMEN: Soft and non-tender, without guarding or rebound. SKIN: Acyanotic, warm, dry, without rashes EXTREMITIES: Without tenderness with 1+ lower extremity edema NEUROLOGICAL: No focal deficits moving all extremities to command. No aphasia. No facial droop or slurred speech. EK bpm normal sinus rhythm. No PVC or PAC. No acute ST segment elevation CONTINUOUS CARDIAC MONITORING: was ordered and showed a heart rate of 90s-100s bpm in normal sinus rhythm to sinus tachycardia Patient's laboratory studies and imaging reviewed. Differential includes Reactive airway disease, pneumonia, pneumothorax, COPD, CHF, infections, cardiac ischemia, pulmonary embolism, musculoskeletal, gastrointestinal, as well as other pathologies. IMPRESSION/MEDICAL DECISION MAKING: Patient with extensive history including COPD as well as lung cancer. Right Pleurx catheter in place. X-ray obtained. We will see if he can drain anything from this Pleurx catheter given this x-ray findings. Slight swelling in the legs and with improvement of BiPAP question some component of fluid overload as well given her history of CHF. Received steroids and DuoNebs already to help with any COPD component. No fevers reported. No trauma reported. EKG obtained as well as troponin but lower suspicion for primary cardiac etiology. We will give some Lasix to help with diuresis. Blood work with leukocytosis of 18.5 unclear if it is infectious or not. Lactate normal. Procalcitonin pending. Likely noninfectious. Renal function stable. Troponin normal and no severe BNP elevation. Discussed with pulmonary physician studio assistant who came and drained right Pleurx catheter at bedside just over 700 cc of yellow pleural effusion. Do not believe this is infected. Having some improvement but given the severity exacerbation today will bring in for observation. Discussed with the hospitalist. DIAGNOSIS: Respiratory failure, right pleural effusion, COPD exacerbation DISPOSITION: Hospitalist will evaluate Patient was agreeable with this plan. Critical Care I have personally spent 32 minutes of critical care time in the direct ma nagement of this patient. This includes bedside care, interpretation of diagnostic studies, and testing, discussion with consultants, patient, and other required patient management activities. These 32 minutes is in excess of all separately billable procedures. Past Med/Surg History Medical History (Updated 03/17/23 @ 16:27 by Chencho Rebolledo M.D.) Acute and chronic respiratory failure with hypoxia Alcohol use Alkalosis, metabolic CAD (coronary artery disease) NSTEMI 2008 - moderate nonobstructive disease, no stenting Carotid stenosis Chronic diastolic (congestive) heart failure Chronic respiratory failure with hypoxia Constipation COPD, group D, by GOLD 2017 classification Diabetes mellitus, type II HLD (hyperlipidemia) HTN (hypertension) Hypothyroid Malignant pleural effusion Metastatic lung cancer (metastasis from lung to other site) (12/11/22) Obesity (BMI 30.0-34.9) BHAVIK on CPAP Primary cancer of right lower lobe of lung (01/31/22) s/p radiation Pulmonary hypertension Right lower lobe pneumonia Surgical History S/P cholecystectomy Family History Mother , age 69 Heart disease Rheumatoid arthritis Osteoarthritis Father , age 69 Myocardial infarction Asthma COPD (chronic obstructive pulmonary disease) Sister , age 29 Lung disease Other Diabetes Social History (Updated 03/17/23 @ 14:53 by Bettye Hernandez MD) Smoking Status: Former smoker Tobacco Type: Cigarettes Age Started Using Tobacco: 18; Age Quit Using Tobacco: 60; packs per day: 2; Second Hand Exposure: No; Do You Dip or Chew Tobacco: No; Hx Alcohol Use: Yes Alcohol type: beer Alcohol type Comment: 2-3 beers per week Alcohol Intake Frequency: 2-3 x/Week Hx Substance Use: No Preferred Language: Arabic Communication Ability: Effective School Vocational Educator Required: No Beliefs That Will Affect Care: None marital status: / Current Living Situation: Alone Current Living Situation Comment: Pt's daughters lives near by current occupational status: retired and disabled 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 [employer] How many Children do You have: 3 Feels Safe at Home: Yes caffeine: Yes (Diet pepsi - 4 cans/day) Assistive Devices: Oxygen - Continuous Allergies Allergies Allergy/AdvReac Type Severity Reaction Status Date / Time tetracycline AdvReac Mild HEADACHE Verified 02/24/23 09:38 Home Meds Home Medications Medication Instructions Recorded Confirmed aspirin 81 mg tablet,delayed 81 mg PO QAM 01/13/19 02/24/23 release amlodipine 2.5 mg tablet 2.5 mg PO DAILY 03/18/21 03/17/23 elderberry fruit 200 mg capsule 200 mg PO QAM ##0 03/18/21 02/24/23 ezetimibe 10 mg tablet 10 mg PO DAILY 03/18/21 03/17/23 metformin 500 mg tablet 500 mg PO BIDM 03/18/21 03/17/23 levothyroxine 150 mcg tablet 150 mcg PO QAM 10/24/22 03/17/23 turmeric 400 mg capsule 400 mg PO DAILY 10/24/22 02/24/23 metoprolol succinate 25 mg 12.5 mg PO BID 12/02/22 03/17/23 tablet,extended release 24 hr fluticasone fur. 100 mcg-umeclid 1 inh inhalation QAM 01/03/23 03/17/23 62.5 mcg-vilant 25 mcg inhalat.powder (Trelegy Ellipta) pravastatin 40 mg tablet 40 mg PO HS 05/19/23 07/04/23 ondansetron HCl 8 mg tablet 8 mg PO Q8H PRN Nausea or Vomiting 03/17/23 03/17/23 potassium chloride 10 mEq 10 meq PO QAM 03/17/23 03/17/23 tablet,extended release Previous Rx's Medication Instructions Recorded furosemide 40 mg tablet (Lasix) 40 mg PO QAM #30 tabs 01/16/19 Results & Data (ED) Vital Signs Vital Signs - 24 hr 03/17/23 11:10 03/17/23 11:27 03/17/23 11:27 Temperature 37.2 C Temperature Source Axillary Pulse Rate 102 H 105 H Pulse Rate from SpO2 Sensor Respiratory Rate 28 H 33 H Respiratory Effort / Characteristics Spontaneous Short of Breath Accessory Muscle Use Labored Nasal Flaring Pursed Lip Short of Breath Tripoding Respiratory Depth Shallow Respiratory Pattern Tachypnea Rapid/Shallow Tachypnea Blood Pressure 166/69 H Blood Pressure Mean 101 Blood Pressure Position Sitting Pulse Oximetry 94 80 L 80 L Oxygen Delivery Method Room Air Room Air Oxygen Flow Rate 0 Fraction of Inspired Oxygen 50 Sepsis Recent Fever Within 48 Hours No Sepsis New/Unexplained Change in Mental Status N/A Sepsis Action Taken by Nursing Physician Notified Oxygen Flow Rate - Titration 15 Pulse Oximetry Post Tiitration 88 L 03/17/23 11:24 03/17/23 11:48 03/17/23 12:00 Temperature Temperature Source Pulse Rate 93 H 108 H Pulse Rate from SpO2 Sensor 99 H Respiratory Rate 25 H Respiratory Effort / Characteristics Labored Respiratory Depth Shallow Respiratory Pattern Tachypnea Blood Pressure 111/78 Blood Pressure Mean 89 Blood Pressure Position Pulse Oximetry 89 L Oxygen Delivery Method BiPAP Oxygen Flow Rate Fraction of Inspired Oxygen 66 Sepsis Recent Fever Within 48 Hours Sepsis New/Unexplained Change in Mental Status Sepsis Action Taken by Nursing Oxygen Flow Rate - Titration Pulse Oximetry Post Tiitration 03/17/23 12:30 03/17/23 13:00 03/17/23 16:09 Temperature Temperature Source Pulse Rate 96 H 91 H 86 Pulse Rate from SpO2 Sensor 96 H 91 H Respiratory Rate 28 H 26 H Respiratory Effort / Characteristics Respiratory Depth Respiratory Pattern Blood Pressure 127/62 116/79 Blood Pressure Mean 83 91 Blood Pressure Position Pulse Oximetry 90 88 L Oxygen Delivery Method Oxygen Flow Rate Fraction of Inspired Oxygen Sepsis Recent Fever Within 48 Hours Sepsis New/Unexplained Change in Mental Status Sepsis Action Taken by Nursing Oxygen Flow Rate - Titration Pulse Oximetry Post Tiitration 03/17/23 16:00 03/17/23 16:05 03/17/23 16:15 Temperature Temperature Source Pulse Rate Pulse Rate from SpO2 Sensor Respiratory Rate Respiratory Effort / Characteristics Respiratory Depth Respiratory Pattern Blood Pressure Blood Pressure Mean Blood Pressure Position Pulse Oximetry 85 L 86 L 89 L Oxygen Delivery Method Nasal Cannula Oxymask BiPAP Oxygen Flow Rate 6 15 Fraction of Inspired Oxygen Sepsis Recent Fever Within 48 Hours Sepsis New/Unexplained Change in Mental Status Sepsis Action Taken by Nursing Oxygen Flow Rate - Titration Pulse Oximetry Post Tiitration Laboratory Data 03/17/23 11:15 03/17/23 11:15 Lab Results 03/17/23 03/17/23 03/17/23 Range/Units 11:15 11:15 11:15 WBC 18.53 H (4.8-10.8) K/ul RBC 4.21 (4.20-5.40) M/uL Hgb 11.9 L (12.0-16.0) g/dl Hct 40.1 (37.0-47.0) % MCV 95.2 (80.0-100.0) fL MCH 28.3 (25.0-34.0) pg MCHC 29.7 L (32.0-36.0) g/dL RDW Std Deviation 53.7 H (36.4-46.3) fL RDW Coeff of Naa 15.3 H (11.5-14.5) % Plt Count 397 (130-400) K/uL MPV 10.4 (9.4-12.4) fL Immature Gran % (Auto) 0.9 % Neut % (Auto) 83.2 % Lymph % (Auto) 4.9 % [place] % (Auto) 7.0 % Eos % (Auto) 3.4 % Baso % (Auto) 0.6 % Neut # (Auto) 15.43 H (1.40-6.50) K/uL Lymph # (Auto) 0.90 L (1.2-3.4) K/uL [place] # (Auto) 1.29 H (0.11-0.59) K/uL Eos # (Auto) 0.63 H (0-0.50) K/uL Baso # (Auto) 0.11 (0-0.2) K/uL Immature Gran # (Auto) 0.17 (0.01-0.20) K/uL PT (9.0-12.0) Seconds INR (0.9-1.1) APTT (21.0-31.0) Seconds PTT Ratio Sodium 141 (136-145) mmol/L Potassium 4.2 (3.5-5.1) mmol/L Chloride 98 (98-107) mmol/L Carbon Dioxide 37 H (21-32) mmol/L Anion Gap 6 (3-11) BUN 17 (6-23) mg/dl Creatinine 0.50 L (0.6-1.2) mg/dl Est Cr Clr Drug Dosing 117.2 ml/min Est GFR ( Amer) 116.9 ml/min Est GFR (Non-Af Amer) 100.9 ml/min BUN/Creatinine Ratio 34.0 H (10-20) Glucose 148 H (70-99(Fasting)) mg/dl Lactate (0.4-2.0) mmol/L Calcium 8.9 (8.6-10.3) mg/dl Magnesium 1.8 (1.7-2.4) mg/dl Total Bilirubin 0.3 (0.2-1.0) mg/dl AST 28 (13-39) U/L ALT 36 (7-52) U/L Alkaline Phosphatase 148 H (34-104) U/L Troponin I High Sens 6.0 (0-14) pg/ml B-Natriuretic Peptide (0-100) pg/ml Total Protein 7.2 (6.0-8.3) gm/dl Albumin 3.5 (3.4-5.0) gm/dl Globulin 3.7 (2.5-4.0) gm/dl Albumin/Globulin Ratio 0.9 (0.9-2) Procalcitonin 0.20 (0-0.5) ng/ml Urine Color Urine Appearance (Clear) Urine pH (4.5-7.5) Ur Specific [place] (1.000-1.030) Urine Protein (Negative) Urine Glucose (UA) (Negative) Urine Ketones (Negative) Urine Blood (Negative) Urine Nitrite (Negative) Urine Bilirubin (Negative) Urine Urobilinogen (Negative) Ur Leukocyte Esterase (Negative) SARS-CoV-2, RNA, NAAT (NEGATIVE) 03/17/23 03/17/23 03/17/23 Range/Units 11:15 11:15 11:15 WBC (4.8-10.8) K/ul RBC (4.20-5.40) M/uL Hgb (12.0-16.0) g/dl Hct (37.0-47.0) % MCV (80.0-100.0) fL MCH (25.0-34.0) pg MCHC (32.0-36.0) g/dL RDW Std Deviation (36.4-46.3) fL RDW Coeff of Naa (11.5-14.5) % Plt Count (130-400) K/uL MPV (9.4-12.4) fL Immature Gran % (Auto) % Neut % (Auto) % Lymph % (Auto) % [place] % (Auto) % Eos % (Auto) % Baso % (Auto) % Neut # (Auto) (1.40-6.50) K/uL Lymph # (Auto) (1.2-3.4) K/uL [place] # (Auto) (0.11-0.59) K/uL Eos # (Auto) (0-0.50) K/uL Baso # (Auto) (0-0.2) K/uL Immature Gran # (Auto) (0.01-0.20) K/uL PT 11.0 (9.0-12.0) Seconds INR 1.0 (0.9-1.1) APTT 27.9 (21.0-31.0) Seconds PTT Ratio 1.0 Sodium (136-145) mmol/L Potassium (3.5-5.1) mmol/L Chloride (98-107) mmol/L Carbon Dioxide (21-32) mmol/L Anion Gap (3-11) BUN (6-23) mg/dl Creatinine (0.6-1.2) mg/dl Est Cr Clr Drug Dosing ml/min Est GFR ( Amer) ml/min Est GFR (Non-Af Amer) ml/min BUN/Creatinine Ratio (10-20) Glucose (70-99(Fasting)) mg/dl Lactate 1.6 (0.4-2.0) mmol/L Calcium (8.6-10.3) mg/dl Magnesium (1.7-2.4) mg/dl Total Bilirubin (0.2-1.0) mg/dl AST (13-39) U/L ALT (7-52) U/L Alkaline Phosphatase (34-104) U/L Troponin I High Sens (0-14) pg/ml B-Natriuretic Peptide 81 (0-100) pg/ml Total Protein (6.0-8.3) gm/dl Albumin (3.4-5.0) gm/dl Globulin (2.5-4.0) gm/dl Albumin/Globulin Ratio (0.9-2) Procalcitonin (0-0.5) ng/ml Urine Color Urine Appearance (Clear) Urine pH (4.5-7.5) Ur Specific [place] (1.000-1.030) Urine Protein (Negative) Urine Glucose (UA) (Negative) Urine Ketones (Negative) Urine Blood (Negative) Urine Nitrite (Negative) Urine Bilirubin (Negative) Urine Urobilinogen (Negative) Ur Leukocyte Esterase (Negative) SARS-CoV-2, RNA, NAAT (NEGATIVE) 03/17/23 03/17/23 Range/Units 12:42 14:56 WBC (4.8-10.8) K/ul RBC (4.20-5.40) M/uL Hgb (12.0-16.0) g/dl Hct (37.0-47.0) % MCV (80.0-100.0) fL MCH (25.0-34.0) pg MCHC (32.0-36.0) g/dL RDW Std Deviation (36.4-46.3) fL RDW Coeff of Naa (11.5-14.5) % Plt Count (130-400) K/uL MPV (9.4-12.4) fL Immature Gran % (Auto) % Neut % (Auto) % Lymph % (Auto) % [place] % (Auto) % Eos % (Auto) % Baso % (Auto) % Neut # (Auto) (1.40-6.50) K/uL Lymph # (Auto) (1.2-3.4) K/uL [place] # (Auto) (0.11-0.59) K/uL Eos # (Auto) (0-0.50) K/uL Baso # (Auto) (0-0.2) K/uL Immature Gran # (Auto) (0.01-0.20) K/uL PT (9.0-12.0) Seconds INR (0.9-1.1) APTT (21.0-31.0) Seconds PTT Ratio Sodium (136-145) mmol/L Potassium (3.5-5.1) mmol/L Chloride (98-107) mmol/L Carbon Dioxide (21-32) mmol/L Anion Gap (3-11) BUN (6-23) mg/dl Creatinine (0.6-1.2) mg/dl Est Cr Clr Drug Dosing ml/min Est GFR ( Amer) ml/min Est GFR (Non-Af Amer) ml/min BUN/Creatinine Ratio (10-20) Glucose (70-99(Fasting)) mg/dl Lactate (0.4-2.0) mmol/L Calcium (8.6-10.3) mg/dl Magnesium (1.7-2.4) mg/dl Total Bilirubin (0.2-1.0) mg/dl AST (13-39) U/L ALT (7-52) U/L Alkaline Phosphatase (34-104) U/L Troponin I High Sens (0-14) pg/ml B-Natriuretic Peptide (0-100) pg/ml Total Protein (6.0-8.3) gm/dl Albumin (3.4-5.0) gm/dl Globulin (2.5-4.0) gm/dl Albumin/Globulin Ratio (0.9-2) Procalcitonin (0-0.5) ng/ml Urine Color Yellow Urine Appearance Clear (Clear) Urine pH 5.0 (4.5-7.5) Ur Specific [place] 1.011 (1.000-1.030) Urine Protein Negative (Negative) Urine Glucose (UA) Negative (Negative) Urine Ketones Negative (Negative) Urine Blood Negative (Negative) Urine Nitrite Negative (Negative) Urine Bilirubin Negative (Negative) Urine Urobilinogen Negative (Negative) Ur Leukocyte Esterase Negative (Negative) SARS-CoV-2, RNA, NAAT NEGATIVE (NEGATIVE) Administered Medications Discontinued Medications Furosemide (Furosemide 40 Mg/4 Ml Vial) 40 mg IV ONE ONE Stop: 03/17/23 11:41 Last Admin: 03/17/23 12:36 Dose: 40 mg Documented By: MT Imaging Data Radiologist's Impression: Chest X-Ray 03/17/23 11:11 SINGLE VIEW CHEST CLINICAL HISTORY: Dyspnea. FINDINGS: An AP, portable, upright chest radiograph is compared to study dated 02/20/2023. Correlation is made with chest CT dated 01/30/2023. The heart is enlarged noting atherosclerotic calcification of the thoracic aorta. There is pulmonary vascular congestion. A pleural catheter is again seen at the right lung base. There is a moderate layering right pleural effusion with consolidation of the right lower lung. Trace pleural effusion is suspected on the left. Emphysema and chronic interstitial thickening is similar to previous. No pneumothorax is seen. The skeletal structures are osteopenic. The bony thorax is grossly intact. IMPRESSION: 1. Cardiomegaly and emphysema with pulmonary vascular congestion. 2. A pleural catheter since the right lung base. There is a layering or pleural effusion with dense consolidation of the right lung base, which has increased from 02/20/2023. Radiographic follow-up to resolution is recommended. 3. Trace pleural effusion is suggested on the left. ACT 112: Negative or not required by law. Electronically signed by: Aris Cobian M.D. 03/17/2023 11:23 AM Discharge Plan Visit Data Chief Complaint: Respiratory Distress Stated Complaint: RESPIRATORY DISTRESS ED Provider: Chencho Rebolledo Discharge Problem: Respiratory failure, Hypoxemia, Acute on chronic respiratory failure with hypoxia Patient Disposition: Being Evaluated by Hospitalist Forms Stand Alone Forms: My [facility] Prescriptions Prescriptions: No Action metoprolol succinate 25 mg tablet extended release 24 hr 12.5 mg PO BID aspirin 81 mg Tablet,Delayed Release (Dr/Ec) 81 mg PO QAM furosemide [Lasix] 40 mg tablet 40 mg PO QAM Qty: 30 0RF pravastatin 40 mg tablet 40 mg PO HS metformin 500 mg tablet 500 mg PO BIDM amlodipine 2.5 mg tablet 2.5 mg PO DAILY ezetimibe 10 mg tablet 10 mg PO DAILY Elderberry 200 mg Capsule 200 mg PO QAM Qty: 0 levothyroxine 150 mcg tablet 150 mcg PO QAM turmeric 400 mg Capsule 400 mg PO DAILY Trelegy Ellipta 100-62.5-25 mcg blister with device 1 inh INHALATION QAM ondansetron HCl 8 mg tablet 8 mg PO Q8H PRN (Reason: Nausea or Vomiting) potassium chloride 10 mEq tablet extended release 10 meq PO QAM Referrals Referrals: Bipin Ramos MD [Primary Care Provider] -
[2023-03-17 11:47] LABS: Basophils # (auto) 0.11 K/uL (0-0.2); Basophils % (auto) 0.6 %; Eosinophils # (auto) 0.63 K/uL (0-0.50); Eosinophils % (auto) 3.4 %; Hematocrit (blood only) 40.1 % (37.0-47.0); Hemoglobin 11.9 g/dl (12.0-16.0); Immature Granulocytes # (auto) 0.17 K/uL (0.01-0.20); Immature Granulocytes % (auto) 0.9 %; Lymphocytes % (auto) 4.9 %; Mean Corpuscular Hemoglobin 28.3 pg (25.0-34.0); Mean Corpuscular Hgb Conc 29.7 g/dL (32.0-36.0); Mean Corpuscular Volume 95.2 fL (80.0-100.0); Mean Platelet Volume 10.4 fL (9.4-12.4); Monocytes # (auto) 1.29 K/uL (0.11-0.59); Neutrophils # (auto) 15.43 K/uL (1.40-6.50); Neutrophils % (auto) 83.2 %; Platelet Count 397 K/uL (130-400); RDW Coefficient of Variation 15.3 % (11.5-14.5); RDW Standard Deviation 53.7 fL (36.4-46.3); Red Blood Count 4.21 M/uL (4.20-5.40); White Blood Count 18.53 K/ul (4.8-10.8)
[2023-03-17 12:01] LABS: Albumin Globulin Ratio 0.9 (0.9-2); Albumin Level 3.5 gm/dl (3.4-5.0); Bilirubin,Total 0.3 mg/dl (0.2-1.0); Calcium 8.9 mg/dl (8.6-10.3); Creatinine Clr Calc Pharmacy 117.2 ml/min; Est GFR (African American) 116.9 ml/min; Est GFR (Non-African American) 100.9 ml/min; Globulin 3.7 gm/dl (2.5-4.0); Magnesium 1.8 mg/dl (1.7-2.4); Potassium 4.2 mmol/L (3.5-5.1); Total Protein 7.2 gm/dl (6.0-8.3)
[2023-03-17 12:18] LABS: Partial Thromboplastin Time 27.9 Seconds (21.0-31.0)
[2023-03-17] MEDS ORDERED: DEXTROSE 50% 50 ML SYRINGE IV PRN (14:35)
[2023-03-17] MEDS ORDERED: GLUCOSE 10 TAB/TUBE PO PRN (14:35)
[2023-03-17] MEDS ORDERED: POLYETHYLENE (MIRALAX) 17 GM PACK PO PRN (14:35)
[2023-03-17] MEDS ORDERED: GLUCAGON FOR INJ 1 MG VIAL SQ PRN (14:35)
[2023-03-17] MEDS ORDERED: CARBOHYDRATES FOR HYPOGLYCEMIA PO PRN (14:35)
[2023-03-17] MEDS ORDERED: MAGNESIUM HYDROXIDE SUSP 30 ML UDC PO PRN (14:35)
[2023-03-17] MEDS ORDERED: GLUCOSE 40% GEL 15 GM TUBE PO PRN (14:35)
[2023-03-17] MEDS ORDERED: ONDANSETRON INJ 2 MG/ML 2 ML VIAL IV PRN (14:35)
--- NOTE | 2023-03-17 15:03 | History & Physical Report ---
Date of Service March 17, 2023 Assessment & Plan (1) Acute and chronic respiratory failure with hypoxia: Plan: presented in respiratory distress that rapidly improved with Lasix, BiPAP, and pleural cath drainage Imaging consistent with acute on chronic HFpEF and worsened pleural effusion d/t underlying lung ca may need to increase to daily from every other day. Pt reports medication compliance no e/o COPD exacerbation on exam continue with supplemental O2, BiPAP for sleep and prn, Furosemide, and daily drainage of pleural cath for now (normally done at home by family members and BULK DRIVER) Present on Admission?: Yes (2) Pleural effusion on right: Plan: continue to drain with catheter, for now increase to daily continue to treat HFpEF continue to treat lung ca, recently started Keytruda Present on Admission?: Yes (3) Acute and chronic respiratory failure with hypercapnia: Plan: as above under acute and chronic respiratory failure with hypoxia continue BiPAP for sleep Present on Admission?: Yes (4) Chronic diastolic (congestive) heart failure: Plan: acute on chronic diastolic CHF, + vascular congestion on imaging improved with IV Furosemide and BiPAP continue home dose of furosemide, titrate up if needed Present on Admission?: Yes (5) Pulmonary hypertension: Plan: continue furosemide, BiPAP Present on Admission?: Yes (6) CAD (coronary artery disease): Plan: no complaints at this time continue BB, asa, statin therapy Present on Admission?: Yes (7) Diabetes mellitus, type II: Plan: continue metformin, diabetic diet, hypoglycemic protocol glucose checks achs, CDI if needed Present on Admission?: Yes (8) Metastatic lung cancer (metastasis from lung to other site): Plan: recently started Keytruda Present on Admission?: Yes (9) COPD, group D, by GOLD 2017 classification: Plan: continue Trelegy Ellipita not currently with exacerbation Present on Admission?: Yes (10) HTN (hypertension): Plan: continue metoprolol, furosemide (titrate up if needed) Present on Admission?: Yes (11) Hypothyroid: Plan: continue levothyroxine no indication to check TSH at this time Present on Admission?: Yes (12) HLD (hyperlipidemia): Plan: continue statin therapy no indication to check a lipid panel at this time Present on Admission?: Yes History of Present Illness Chief Complaint: respiratory distress Primary Care Provider: Bipin Ramos MD Ms. Ga is a 68 year old female with pmhx including but not limited to COPD, pulmonary hypertension, BHAVIK, lung cancer (s/p pleural catheter to drain pleural effusion every other day, started Keytruda 2.5 weeks ago), chronic respiratory failure with hypoxia and hypercapnia on 5 LPM O2 with BiPAP for sleep, CAD, carotid stenosis, chronic HFpEF, NIDDM-II (associated with HTN and HLP), hypothyroidism, and chronic alcohol use. She presented with acute onset of respiratory failure, likely due to worsening pleural effusions as well as equipment malfunction at home. Ms. Ga states she was in her usual health up through Thursday. Thursday her O2 concentrator was not working so the O2 company delivered a new one. She instructed the person who delivered it that she is on 5L. Somehow they set it at 4 LPM and she did not realize it. When she woke up Thursday morning she was extremely short of breath, struggling to breath. Her daughter arrived and drained the Pleurex catheter and adjusted the concentrator. Ms. Ga was feeling much better afterward. She woke up today () feeling as though she was extremely short of breath again. She denies any associated dizziness, lightheadedness, f/c/n/v, POZO, change in appetite, malaise, fatigue, weakness, CP/pressure/tightness, palpitations, abdominal pain, and dysuria. She has intermittent diarrhea at baseline since her gallbladder was removed, that remains at baseline. She has no other complaints. By the time of my exam she is feeling much better. ED Course: VS notable for: BP 166/69. HR 108, RR 33, O2 80% ORA, 89% on BiPAP. Afebrile. b/w notable for: wbc 18.5, CO2 37, Alk Phos 148. Remaining CMP, CBC unimpressive. PT INR wnl. CXR read as right pleural effusion, RLL dense opacities worse since February. Notable for vascular congestion. She was placed on BiPAP and given Furosemide. Pulm was consulted and drained her pleural catheter. BP normalized. By the time of my exam she is feeling much better Allergies Allergy/AdvReac Type Severity Reaction Status Date / Time tetracycline AdvReac Mild HEADACHE Verified 02/24/23 09:38 Home Medications Medication Instructions Recorded Confirmed Type aspirin 81 mg tablet,delayed 81 mg PO QAM 01/13/19 02/24/23 History release furosemide 40 mg tablet (Lasix) 40 mg PO QAM #30 tabs 01/16/19 03/17/23 Rx amlodipine 2.5 mg tablet 2.5 mg PO DAILY 03/18/21 03/17/23 History elderberry fruit 200 mg capsule 200 mg PO QAM ##0 03/18/21 02/24/23 History ezetimibe 10 mg tablet 10 mg PO DAILY 03/18/21 03/17/23 History metformin 500 mg tablet 500 mg PO BIDM 03/18/21 03/17/23 History levothyroxine 150 mcg tablet 150 mcg PO QAM 10/24/22 03/17/23 History turmeric 400 mg capsule 400 mg PO DAILY 10/24/22 02/24/23 History metoprolol succinate 25 mg 12.5 mg PO BID 12/02/22 03/17/23 History tablet,extended release 24 hr fluticasone fur. 100 mcg-umeclid 1 inh inhalation QAM 01/03/23 03/17/23 History 62.5 mcg-vilant 25 mcg inhalat.powder (Trelegy Ellipta) pravastatin 40 mg tablet 40 mg PO HS 01/30/23 03/17/23 History ondansetron HCl 8 mg tablet 8 mg PO Q8H PRN Nausea or Vomiting 03/17/23 03/17/23 History potassium chloride 10 mEq 10 meq PO QAM 03/17/23 03/17/23 History tablet,extended release Past Med/Surg History Medical History (Updated 03/17/23 @ 17:14 by Bettye Hernandez MD) Acute and chronic respiratory failure with hypoxia Alcohol use Alkalosis, metabolic CAD (coronary artery disease) NSTEMI 2008 - moderate nonobstructive disease, no stenting Carotid stenosis Chronic diastolic (congestive) heart failure Chronic respiratory failure with hypoxia Constipation COPD, group D, by GOLD 2017 classification Diabetes mellitus, type II HLD (hyperlipidemia) HTN (hypertension) Hypothyroid Malignant pleural effusion Metastatic lung cancer (metastasis from lung to other site) (12/11/22) Obesity (BMI 30.0-34.9) BHAVIK on CPAP Primary cancer of right lower lobe of lung (01/31/22) s/p radiation Pulmonary hypertension Right lower lobe pneumonia Surgical History S/P cholecystectomy Family History Mother , age 69 Heart disease Rheumatoid arthritis Osteoarthritis Father , age 69 Myocardial infarction Asthma COPD (chronic obstructive pulmonary disease) Sister , age 29 Lung disease Other Diabetes Social History (Updated 03/17/23 @ 14:53 by Bettye Hernandez MD) Smoking Status: Former smoker Tobacco Type: Cigarettes Age Started Using Tobacco: 18; Age Quit Using Tobacco: 60; packs per day: 2; Second Hand Exposure: No; Do You Dip or Chew Tobacco: No; Hx Alcohol Use: Yes Alcohol type: beer Alcohol type Comment: 2-3 beers per week Alcohol Intake Frequency: 2-3 x/Week Hx Substance Use: No Preferred Language: Peruvian Communication Ability: Effective Nail Tech Required: No Beliefs That Will Affect Care: None marital status: / Current Living Situation: Alone Current Living Situation Comment: Pt's daughters lives near by current occupational status: retired and disabled 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 [employer] How many Children do You have: 3 Feels Safe at Home: Yes caffeine: Yes (Diet pepsi - 4 cans/day) Assistive Devices: Oxygen - Continuous Review of Systems Review of Systems: All systems reviewed & are unremarkable except as noted in HPI & below Physical Exam Physical Exam: General: NAD, non-toxic appearing, appears comfortable on BiPAP, speaking in full sentences, obese (BMI 40) Head: NC AT Eyes: anicteric sclera, no conjunctival injection Nose: nares patent, normal Mouth: MMM, poor dentition Neck: supple, trachea midline CV: RRR S1 S2 Pulm: + crackles, rhonchi Abd/GI: + BS, soft, NT, ND, no guarding : no sherman Ext: no pretibial edema, peripheral pulses intact MSK: normal bulk and tone Neuro: no gross deficits, moving all 4 extremities symmetrically Psych: pleasant mood and affect Skin: visible skin is warm, dry, and without rash. Pt not fully undressed for exam. Results & Data Results & Data Vital Signs (Past 12 Hours) Vital Signs Temp Pulse Resp BP Pulse Ox O2 Del Method O2 Flow Rate 03/17/23 13:00 91 H 26 H 116/79 88 L 07/04/23 12:30 96 H 28 H 127/62 90 03/17/23 12:00 108 H 25 H 111/78 89 L BiPAP 03/17/23 11:48 93 H 03/17/23 11:27 80 L Room Air 0 03/17/23 11:27 37.2 C 105 H 33 H 166/69 H 80 L Room Air 03/17/23 11:10 102 H 28 H 94 FiO2 03/17/23 13:00 03/17/23 12:30 03/17/23 12:00 66 03/17/23 11:48 03/17/23 11:27 03/17/23 11:27 03/17/23 11:10 50 Laboratory Results Short CBC 03/17/23 Range/Units 11:15 WBC 18.53 H (4.8-10.8) K/ul Hgb 11.9 L (12.0-16.0) g/dl Hct 40.1 (37.0-47.0) % Plt Count 397 (130-400) K/uL BMP 03/17/23 11:15 Sodium 141 Potassium 4.2 Chloride 98 Carbon Dioxide 37 H BUN 17 Creatinine 0.50 L Glucose 148 H Calcium 8.9 Liver Function 03/17/23 Range/Units 11:15 Total Bilirubin 0.3 (0.2-1.0) mg/dl AST 28 (13-39) U/L ALT 36 (7-52) U/L Alkaline Phosphatase 148 H (34-104) U/L Albumin 3.5 (3.4-5.0) gm/dl Diagnostic Findings Chest X-Ray 03/17/23 11:11 SINGLE VIEW CHEST CLINICAL HISTORY: Dyspnea. FINDINGS: An AP, portable, upright chest radiograph is compared to study dated 02/20/2023. Correlation is made with chest CT dated 01/30/2023. The heart is enlarged noting atherosclerotic calcification of the thoracic aorta. There is pulmonary vascular congestion. A pleural catheter is again seen at the right lung base. There is a moderate layering right pleural effusion with consolidation of the right lower lung. Trace pleural effusion is suspected on the left. Emphysema and chronic interstitial thickening is similar to previous. No pneumothorax is seen. The skeletal structures are osteopenic. The bony thorax is grossly intact. IMPRESSION: 1. Cardiomegaly and emphysema with pulmonary vascular congestion. 2. A pleural catheter since the right lung base. There is a layering or pleural effusion with dense consolidation of the right lung base, which has increased from 02/20/2023. Radiographic follow-up to resolution is recommended. 3. Trace pleural effusion is suggested on the left. Electronically signed by: Aris Cobian M.D. 03/17/2023 11:23 AM Code Status & VTE Plan Code Status Full. Patient would like to be resuscitated, if intubated > 3 days without any hope of extubation would like withdrawal of care. Pt states she has discussed this with her family. VTE Prophylaxis Plan VTE Prophylaxis will be ordered: Yes (8) Metastatic lung cancer (metastasis from lung to other site) Laterality: unspecified laterality Qualified Code(s): C34.90 - Malignant neoplasm of unspecified part of unspecified bronchus or lung
[2023-03-17 15:28] LABS: Appearance Urine Clear (Clear); Bilirubin Urine Negative (Negative); Blood Urine Negative (Negative); Color Urine Yellow; Glucose Urine UA Negative (Negative); Ketones Urine Negative (Negative); Leukocyte Esterase Urine Negative (Negative); Nitrite Urine Negative (Negative); Protein Urine Negative (Negative); Specific Gravity Urine 1.011 (1.000-1.030); Urobilinogen Urine Negative (Negative)
[2023-03-17] MEDS ORDERED: INSULIN ASPART PER UNIT CHARGE SC SCH (16:30)
[2023-03-17] MEDS: metFORMIN HCL 500 MG TAB PO SCH (18:40)
[2023-03-17] MEDS: FUROSEMIDE 20 MG TAB PO SCH (18:40)
[2023-03-17] MEDS: ENOXAPARIN INJ 40 MG/0.4 ML SYR SQ SCH (18:42)
[2023-03-17] MEDS ORDERED: LANTUS PER UNIT CHARGE SQ SCH (21:00)
[2023-03-17] MEDS: METOPROLOL SUCC 25MG EXT REL TAB PO SCH (21:19)
[2023-03-17] MEDS: PRAVASTATIN SOD 40 MG TAB PO SCH (21:21)
[2023-03-18] MEDS: ENOXAPARIN INJ 40 MG/0.4 ML SYR SQ SCH ×2 (05:53→17:09)
[2023-03-18] MEDS: LEVOTHYROXINE SODIUM 150 MCG TABLET PO SCH (05:56)
[2023-03-18 07:59] LABS: Hematocrit (blood only) 36.6 % (37.0-47.0); Hemoglobin 10.7 g/dl (12.0-16.0); Mean Corpuscular Hemoglobin 27.7 pg (25.0-34.0); Mean Corpuscular Hgb Conc 29.2 g/dL (32.0-36.0); Mean Corpuscular Volume 94.8 fL (80.0-100.0); Mean Platelet Volume 10.6 fL (9.4-12.4); Platelet Count 370 K/uL (130-400); RDW Coefficient of Variation 15.3 % (11.5-14.5); Red Blood Count 3.86 M/uL (4.20-5.40); White Blood Count 17.05 K/ul (4.8-10.8)
[2023-03-18] MEDS: METOPROLOL SUCC 25MG EXT REL TAB PO SCH ×2 (08:26→21:41)
[2023-03-18] MEDS: ASPIRIN 81 MG ECTAB PO SCH (08:26)
[2023-03-18] MEDS: ACETAMINOPHEN 325 MG TAB PO PRN ×3 (08:26→19:44)
[2023-03-18] MEDS: UMECLIDINIUM/VILANTEROL 62.5/25MCG 7 PUFFS/INHALER INH SCH (08:26)
[2023-03-18] MEDS: amLODIPine BESYLATE 5 MG TAB PO SCH (08:26)
[2023-03-18] MEDS: EZETIMIBE 10 MG TABLET PO SCH (08:27)
[2023-03-18] MEDS: metFORMIN HCL 500 MG TAB PO SCH ×2 (08:27→17:09)
[2023-03-18] MEDS: FLUTICASONE FUROATE 100MCG 14 PUFFS/INHALER INH SCH (08:27)
[2023-03-18] MEDS: FUROSEMIDE 40 MG TAB PO SCH (08:27)
[2023-03-18 08:28] LABS: Calcium 8.7 mg/dl (8.6-10.3); Creatinine Clr Calc Pharmacy 96.7 ml/min; Est GFR (African American) 110.7 ml/min; Est GFR (Non-African American) 95.5 ml/min; Potassium 3.9 mmol/L (3.5-5.1)
[2023-03-18] MEDS: POTASSIUM CHLORIDE 10 MEQ TABCR PO SCH (08:28)
[2023-03-18] MEDS ORDERED: NON-FORMULARY MEDICATION (Fluticasone-Umeclidin-Vilanter [Trelegy Ellipta] 100-62.5-25 mcg INH SCH (09:00)
[2023-03-18] MEDS: FUROSEMIDE 20 MG TAB PO SCH (17:09)
--- NOTE | 2023-03-18 17:14 | Hospitalist Progress Note ---
Date of Service March 18, 2023 Assessment & Plan (1) Acute and chronic respiratory failure with hypoxia: Plan: presented in respiratory distress that rapidly improved with Lasix, BiPAP, and pleural cath drainage Imaging consistent with acute on chronic HFpEF and worsened pleural effusion d/t underlying lung ca Pt reports medication compliance no e/o COPD exacerbation on exam continue with supplemental O2, BiPAP for sleep and prn, Furosemide, and daily drainage of pleural cath for now (normally done at home by family members and DRAFTING LAYOUT WORKER) Has been feeling much better with daily drainage from the pleural catheter Discussed with the aerial applicator pilot and the drainage will be done daily as planned She has been feeling a lot better and will have PT OT evaluation Likely discharge tomorrow-she will need to have close follow-up with the core checker (2) Pleural effusion on right: Plan: continue to drain with catheter, for now increase to daily continue to treat HFpEF continue to treat lung ca, recently started Keytruda (3) Acute and chronic respiratory failure with hypercapnia: Plan: as above under acute and chronic respiratory failure with hypoxia continue BiPAP for sleep Denies any significant respiratory symptoms (4) Chronic diastolic (congestive) heart failure: Plan: acute on chronic diastolic CHF, + vascular congestion on imaging improved with IV Furosemide and BiPAP continue home dose of furosemide, titrate up if needed No significant fluid overload Continue the current dose of medication (5) Pulmonary hypertension: Plan: continue furosemide, BiPAP (6) CAD (coronary artery disease): Plan: no complaints at this time continue BB, asa, statin therapy (7) Diabetes mellitus, type II: Plan: continue metformin, diabetic diet, hypoglycemic protocol glucose checks achs, CDI if needed (8) Metastatic lung cancer (metastasis from lung to other site): Plan: recently started Keytruda We will continue current dose of Keytruda (9) COPD, group D, by GOLD 2017 classification: Plan: continue Trelegy Ellipita not currently with exacerbation (10) HTN (hypertension): Plan: continue metoprolol, furosemide (titrate up if needed) (11) Hypothyroid: Plan: continue levothyroxine no indication to check TSH at this time (12) HLD (hyperlipidemia): Plan: continue statin therapy no indication to check a lipid panel at this time Admission and Anticipated Discharge Date Admission Date: March 17, 2023 Subjective 03/18/2023 The patient was seen and examined in medical telemetry unit She has been feeling much better since admission Denies any significant shortness of breath at rest We will get PT and OT evaluation Discussed with the him specialist and advised to have daily drainages of fluid Review of Systems Review of Systems: All systems reviewed and are unremarkable except as noted below Physical Exam Physical Exam: Lying in bed without any acute distress Constitutional: well developed, well nourished, + ill appearing and + obese Eyes: PERRL, conjunctivae normal, anicteric sclerae ENMT: external ear and nose normal, oropharynx normal Neck: trachea midline, no thyromegaly Respiratory: no respiratory distress Auscultation: + diminished lung sounds and + crackles (Bibasally more on the right) Cardiovascular: Rate/Rhythm: regular rate and regular rhythm; not tachycardic Heart Sounds: normal S1 and normal S2; no murmur Extremities: no edema Gastrointestinal (Abdomen): Inspection/Auscultation: normal bowel sounds; abdomen not distended Percussion/Palpation: abdomen soft; abdomen nontender Musculoskeletal: No acute arthritis involving any of the joint Neurologic: normal touch/pain/proprioception and moves all extremities; no focal motor deficits Psychiatric: A+Ox3, euthymic affect Lymphatic: no cervical or axillary lymphadenopathy Results & Data Results & Data Vital Signs (Past 12 Hours) Vital Signs Temp Pulse Pulse Resp BP Pulse Ox O2 Del Method 03/18/23 16:27 36.8 C 64 18 101/65 90 High Flow Nasal Cannula 03/18/23 15:57 77 03/18/23 15:07 69 20 93 High Flow Nasal Cannula 03/18/23 11:35 36.5 C 69 20 100/50 L 92 High Flow Nasal Cannula 03/18/23 10:56 69 20 94 High Flow Nasal Cannula 03/18/23 08:20 High Flow Nasal Cannula 03/18/23 08:15 36.4 C L 73 18 113/69 92 High Flow Nasal Cannula 03/18/23 07:22 72 20 92 High Flow Nasal Cannula 03/18/23 07:16 76 O2 Flow Rate FiO2 03/18/23 16:27 25 50 03/18/23 15:57 03/18/23 15:07 25 60 03/18/23 11:35 25 03/18/23 10:56 25 70 03/18/23 08:20 25 70 03/18/23 08:15 25 70 07/05/23 07:22 25 75 03/18/23 07:16 Laboratory Results Short CBC 03/18/23 Range/Units 07:25 WBC 17.05 H (4.8-10.8) K/ul Hgb 10.7 L (12.0-16.0) g/dl Hct 36.6 L (37.0-47.0) % Plt Count 370 (130-400) K/uL BMP 03/18/23 07:25 Sodium 140 Potassium 3.9 Chloride 96 L Carbon Dioxide 39 H BUN 23 Creatinine 0.59 L Glucose 190 H Calcium 8.7 Medications Administered Current Inpatient Medications Acetaminophen (Acetaminophen 325 Mg Tab) 650 mg PO Q4H PRN PRN Reason: pain/fever Stop: 04/16/23 14:34 Last Admin: 03/18/23 14:01 Dose: 650 mg Amlodipine Besylate (Amlodipine Besylate 5 Mg Tab) 2.5 mg PO DAILY NABEEL Stop: 04/17/23 08:59 Last Admin: 03/18/23 08:26 Dose: 2.5 mg Aspirin (Aspirin 81 Mg Ectab) 81 mg PO DAILY NABEEL Stop: 04/17/23 08:59 Last Admin: 03/18/23 08:26 Dose: 81 mg Dextrose (Dextrose 50% 50 Ml Syringe) 25 - 50 ml IV UD PRN; Protocol PRN Reason: Hypoglycemia Protocol Stop: 04/16/23 14:34 Ezetimibe (Ezetimibe 10 Mg Tablet) 10 mg PO DAILY NABEEL Stop: 04/17/23 08:59 Last Admin: 03/18/23 08:27 Dose: 10 mg Enoxaparin Sodium (Enoxaparin Inj 40 Mg/0.4 Ml Syr) 40 mg SQ Q12H NABEEL Stop: 04/16/23 17:59 Last Admin: 03/18/23 17:09 Dose: Not Given Fluticasone Furoate (Fluticasone Furoate 100mcg 14 Puffs/Inhaler) 1 puffs INH DAILY NABEEL Stop: 04/17/23 08:59 Last Admin: 03/18/23 08:27 Dose: 1 puffs Furosemide (Furosemide 40 Mg Tab) 40 mg PO QAM NABEEL Stop: 04/17/23 08:59 Last Admin: 03/18/23 08:27 Dose: 40 mg Furosemide (Furosemide 20 Mg Tab) 20 mg PO DAILY@1700 [facility] Stop: 04/16/23 18:14 Last Admin: 03/18/23 17:09 Dose: 20 mg Glucagon (Glucagon For Inj 1 Mg Vial) 1 mg SQ UD PRN; Protocol PRN Reason: Hypoglycemia Protocol Stop: 04/16/23 14:34 Glucose (Glucose 10 Tab/Tube) 4 - 8 tab PO UD PRN; Protocol PRN Reason: Hypoglycemia Treatment Stop: 04/16/23 14:34 Glucose (Glucose 40% Gel 15 Gm Tube) 15 - 30 gm PO UD PRN; Protocol PRN Reason: Hypoglycemia Protocol Stop: 04/16/23 14:34 Levothyroxine Sodium (Levothyroxine Sodium 150 Mcg Tablet) 150 mcg PO DAILYBB [facility] Stop: 04/17/23 06:29 Last Admin: 03/18/23 05:56 Dose: 150 mcg Magnesium Hydroxide (Magnesium Hydroxide Susp 30 Ml Udc) 30 ml PO Q6H PRN PRN Reason: Constipation Stop: 04/16/23 14:34 Metformin HCl (Metformin Hcl 500 Mg Tab) 500 mg PO BIDM [facility] Stop: 04/16/23 16:59 Last Admin: 03/18/23 17:09 Dose: 500 mg Metoprolol Succinate (Metoprolol Succ 25mg Ext Rel Tab) 12.5 mg PO BID [facility] Stop: 04/16/23 20:59 Last Admin: 03/18/23 08:26 Dose: 12.5 mg Miscellaneous (Carbohydrates For Hypoglycemia ) 15 - 30 gm PO UD PRN PRN Reason: Hypoglycemia Protocol Stop: 04/16/23 14:34 Ondansetron HCl (Ondansetron Inj 2 Mg/Ml 2 Ml Vial) 4 mg IV Q6H PRN PRN Reason: Nausea Stop: 04/16/23 14:34 Polyethylene Glycol (Polyethylene (Miralax) 17 Gm Pack) 17 gm PO DAILY PRN PRN Reason: Constipation Stop: 04/16/23 14:34 Potassium Chloride (Potassium Chloride 10 Meq Tabcr) 10 meq PO QAM [facility] Stop: 04/17/23 08:59 Last Admin: 03/18/23 08:28 Dose: 10 meq Pravastatin Sodium (Pravastatin Sod 40 Mg Tab) 40 mg PO HS [facility] Stop: 04/16/23 20:59 Last Admin: 03/17/23 21:21 Dose: 40 mg Umeclidinium/Vilanterol (Umeclidinium/Vilanterol 62.5/25mcg 7 Puffs/Inhaler) 1 puffs INH DAILY NABEEL Stop: 04/17/23 08:59 Last Admin: 03/18/23 08:26 Dose: 1 puffs (8) Metastatic lung cancer (metastasis from lung to other site) Laterality: unspecified laterality Qualified Code(s): C34.90 - Malignant ne oplasm of unspecified part of unspecified bronchus or lung
[2023-03-18] MEDS: PRAVASTATIN SOD 40 MG TAB PO SCH (21:39)
[2023-03-18] MEDS ORDERED: ALBUMIN 25% 25 GM/100 ML VIAL IV ONE (21:48)
[2023-03-19] MEDS ORDERED: ALBUMIN 25% 25 GM/100 ML VIAL IV ONE (00:13)
[2023-03-19] MEDS ORDERED: MAGNESIUM SULFATE / D5W 1 GM/100 ML BAG IV ONE ×2 (00:15→01:14)
[2023-03-19 00:43] LABS: Basophils # (auto) 0.09 K/uL (0-0.2); Basophils % (auto) 0.6 %; Eosinophils # (auto) 0.73 K/uL (0-0.50); Eosinophils % (auto) 4.9 %; Hematocrit (blood only) 33.9 % (37.0-47.0); Immature Granulocytes % (auto) 0.7 %; Lymphocytes % (auto) 5.4 %; Mean Corpuscular Hemoglobin 27.5 pg (25.0-34.0); Mean Corpuscular Hgb Conc 29.5 g/dL (32.0-36.0); Mean Corpuscular Volume 93.1 fL (80.0-100.0); Mean Platelet Volume 10.3 fL (9.4-12.4); Monocytes % (auto) 6.1 %; Neutrophils # (auto) 12.25 K/uL (1.40-6.50); Neutrophils % (auto) 82.3 %; Platelet Count 320 K/uL (130-400); RDW Coefficient of Variation 15.1 % (11.5-14.5); RDW Standard Deviation 51.8 fL (36.4-46.3); Red Blood Count 3.64 M/uL (4.20-5.40); White Blood Count 14.87 K/ul (4.8-10.8)
[2023-03-19 01:01] LABS: Calcium 8.4 mg/dl (8.6-10.3); Magnesium 1.4 mg/dl (1.7-2.4); Potassium 3.6 mmol/L (3.5-5.1)
[2023-03-19 01:07] LABS: Creatinine Clr Calc Pharmacy 93.5 ml/min; Est GFR (African American) 109.5 ml/min; Est GFR (Non-African American) 94.5 ml/min
[2023-03-19] MEDS: ACETAMINOPHEN 325 MG TAB PO PRN ×4 (02:31→20:09)
[2023-03-19] MEDS: ENOXAPARIN INJ 40 MG/0.4 ML SYR SQ SCH ×2 (05:02→18:38)
[2023-03-19] MEDS: LEVOTHYROXINE SODIUM 150 MCG TABLET PO SCH (05:54)
[2023-03-19] MEDS: FLUTICASONE FUROATE 100MCG 14 PUFFS/INHALER INH SCH (08:44)
[2023-03-19] MEDS: UMECLIDINIUM/VILANTEROL 62.5/25MCG 7 PUFFS/INHALER INH SCH (08:44)
[2023-03-19] MEDS: METOPROLOL SUCC 25MG EXT REL TAB PO SCH ×2 (08:45→20:02)
[2023-03-19] MEDS: amLODIPine BESYLATE 5 MG TAB PO SCH (08:46)
[2023-03-19] MEDS: metFORMIN HCL 500 MG TAB PO SCH ×2 (08:46→16:52)
[2023-03-19] MEDS: EZETIMIBE 10 MG TABLET PO SCH (08:46)
[2023-03-19] MEDS: FUROSEMIDE 40 MG TAB PO SCH (08:46)
[2023-03-19] MEDS: ASPIRIN 81 MG ECTAB PO SCH (08:46)
[2023-03-19] MEDS: POTASSIUM CHLORIDE 10 MEQ TABCR PO SCH (08:50)
[2023-03-19] MEDS ORDERED: POTASSIUM CHLORIDE CRTAB 20 MEQ TABCR PO STA (11:41)
[2023-03-19] MEDS ORDERED: FUROSEMIDE 40 MG/4 ML VIAL IV ONE (11:41)
--- NOTE | 2023-03-19 16:14 | Hospitalist Progress Note ---
Date of Service March 19, 2023 Assessment & Plan (1) Acute and chronic respiratory failure with hypoxia: Plan: presented in respiratory distress that rapidly improved with Lasix, BiPAP, and pleural cath drainage Imaging consistent with acute on chronic HFpEF and worsened pleural effusion d/t underlying lung ca Pt reports medication compliance no e/o COPD exacerbation on exam continue with supplemental O2, BiPAP for sleep and prn, Furosemide, and daily drainage of pleural cath for now (normally done at home by family members and CAP INSPECTOR) Has been feeling much better with daily drainage from the pleural catheter Discussed with the air pumper and the drainage will be done daily as planned She has been feeling a lot better and will have PT OT evaluation Clinically not yet any better to be discharged Has been requiring more oxygen Will give an extra Lasix today We will get a repeat chest x-ray tomorrow to evaluate congestion further Likely discharge tomorrow if she feels well and back to baseline (2) Pleural effusion on right: Plan: continue to drain with catheter, for now increase to daily continue to treat HFpEF continue to treat lung ca, recently started Keytruda Will have drainage from the Pleurx catheter daily Catheter management will be done by fitness director as an outpatient (3) Acute and chronic respiratory failure with hypercapnia: Plan: as above under acute and chronic respiratory failure with hypoxia continue BiPAP for sleep Denies any significant respiratory symptoms (4) Chronic diastolic (congestive) heart failure: Plan: acute on chronic diastolic CHF, + vascular congestion on imaging improved with IV Furosemide and BiPAP continue home dose of furosemide, titrate up if needed No significant fluid overload Continue the current dose of medication Received 1 dose of Lasix intravenously today with potassium supplement (5) Pulmonary hypertension: Plan: continue furosemide, BiPAP (6) CAD (coronary artery disease): Plan: no complaints at this time continue BB, asa, statin therapy (7) Diabetes mellitus, type II: Plan: continue metformin, diabetic diet, hypoglycemic protocol glucose checks achs, CDI if needed (8) Metastatic lung cancer (metastasis from lung to other site): Plan: recently started Keytruda We will continue current dose of Keytruda (9) COPD, group D, by GOLD 2017 classification: Plan: continue Trelegy Ellipita not currently with exacerbation (10) HTN (hypertension): Plan: continue metoprolol, furosemide (titrate up if needed) (11) Hypothyroid: Plan: continue levothyroxine no indication to check TSH at this time (12) HLD (hyperlipidemia): Plan: continue statin therapy no indication to check a lipid panel at this time Admission and Anticipated Discharge Date Admission Date: March 17, 2023 Subjective 03/18/2023 The patient was seen and examined in medical telemetry unit She has been feeling much better since admission Denies any significant shortness of breath at rest We will get PT and OT evaluation Discussed with the it technical support specialist and advised to have daily drainages of fluid 03/19/2023 The patient was seen and examined in medical telemetry unit She is requiring more oxygen to maintain saturation A little shortness of breath at rest Denies any chest pain and/or palpitation Review of Systems Review of Systems: All systems reviewed and are unremarkable except as noted below Physical Exam Physical Exam: Lying in bed without any acute distress Constitutional: well developed, well nourished, + ill appearing and + obese Eyes: PERRL, conjunctivae normal, anicteric sclerae ENMT: external ear and nose normal, oropharynx normal Neck: trachea midline, no thyromegaly Respiratory: no respiratory distress Auscultation: + diminished lung sounds and + crackles (Bibasally more on the right) Cardiovascular: Rate/Rhythm: regular rate and regular rhythm; not tachycardic Heart Sounds: normal S1 and normal S2; no murmur Extremities: no edema Gastrointestinal (Abdomen): Inspection/Auscultation: normal bowel sounds; abdomen not distended Percussion/Palpation: abdomen soft; abdomen nontender Musculoskeletal: No acute arthritis involving of the joint Neurologic: normal touch/pain/proprioception and moves all extremities; no focal motor deficits Psychiatric: A+Ox3, euthymic affect Lymphatic: no cervical or axillary lymphadenopathy Results & Data Results & Data Vital Signs (Past 12 Hours) Vital Signs Temp Pulse Pulse Resp BP Pulse Ox Pulse Ox 03/19/23 15:00 74 03/19/23 12:59 90 03/19/23 08:00 03/19/23 08:09 37.0 C 79 18 110/71 94 03/19/23 07:35 73 20 91 03/19/23 07:00 69 Pulse Ox Pulse Ox O2 Del Method O2 Flow Rate O2 Flow Rate O2 Flow Rate O2 Flow Rate 03/19/23 15:00 03/19/23 12:59 93 87 L 30 30 30 03/19/23 08:00 High Flow Nasal Cannula 30 03/19/23 08:09 High Flow Nasal Cannula 35 03/19/23 07:35 High Flow Nasal Cannula 30 03/19/23 07:00 FiO2 03/19/23 15:00 03/19/23 12:59 03/19/23 08:00 65 03/19/23 08:09 80 03/19/23 07:35 65 03/19/23 07:00 Laboratory Results Short CBC 03/19/23 Range/Units 00:22 WBC 14.87 H (4.8-10.8) K/ul Hgb 10.0 L (12.0-16.0) g/dl Hct 33.9 L (37.0-47.0) % Plt Count 320 (130-400) K/uL BMP 03/19/23 00:22 Sodium 138 Potassium 3.6 Chloride 95 L Carbon Dioxide 36 H BUN 25 H Creatinine 0.61 Glucose 159 H Calcium 8.4 L Medications Administered Current Inpatient Medications Acetaminophen (Acetaminophen 325 Mg Tab) 650 mg PO Q4H PRN PRN Reason: pain/fever Stop: 04/16/23 14:34 Last Admin: 03/19/23 15:39 Dose: 650 mg Amlodipine Besylate (Amlodipine Besylate 5 Mg Tab) 2.5 mg PO DAILY NABEEL Stop: 04/17/23 08:59 Last Admin: 03/19/23 08:46 Dose: 2.5 mg Aspirin (Aspirin 81 Mg Ectab) 81 mg PO DAILY NABEEL Stop: 04/17/23 08:59 Last Admin: 03/19/23 08:46 Dose: 81 mg Dextrose (Dextrose 50% 50 Ml Syringe) 25 - 50 ml IV UD PRN; Protocol PRN Reason: Hypoglycemia Protocol Stop: 04/16/23 14:34 Ezetimibe (Ezetimibe 10 Mg Tablet) 10 mg PO DAILY NABEEL Stop: 04/17/23 08:59 Last Admin: 03/19/23 08:46 Dose: 10 mg Enoxaparin Sodium (Enoxaparin Inj 40 Mg/0.4 Ml Syr) 40 mg SQ Q12H NABEEL Stop: 04/16/23 17:59 Last Admin: 03/19/23 05:02 Dose: Not Given Fluticasone Furoate (Fluticasone Furoate 100mcg 14 Puffs/Inhaler) 1 puffs INH DAILY NABEEL Stop: 04/17/23 08:59 Last Admin: 03/19/23 08:44 Dose: 1 puffs Furosemide (Furosemide 40 Mg Tab) 40 mg PO QAM N[facility]EEL Stop: 04/17/23 08:59 Last Admin: 03/19/23 08:46 Dose: 40 mg Furosemide (Furosemide 20 Mg Tab) 20 mg PO DAILY@1700 N[facility]EEL Stop: 04/16/23 18:14 Last Admin: 03/18/23 17:09 Dose: 20 mg Glucagon (Glucagon For Inj 1 Mg Vial) 1 mg SQ UD PRN; Protocol PRN Reason: Hypoglycemia Protocol Stop: 04/16/23 14:34 Glucose (Glucose 10 Tab/Tube) 4 - 8 tab PO UD PRN; Protocol PRN Reason: Hypoglycemia Treatment Stop: 04/16/23 14:34 Glucose (Glucose 40% Gel 15 Gm Tube) 15 - 30 gm PO UD PRN; Protocol PRN Reason: Hypoglycemia Protocol Stop: 04/16/23 14:34 Levothyroxine Sodium (Levothyroxine Sodium 150 Mcg Tablet) 150 mcg PO DAILYBB NABEEL Stop: 04/17/23 06:29 Last Admin: 03/19/23 05:54 Dose: 150 mcg Magnesium Hydroxide (Magnesium Hydroxide Susp 30 Ml Udc) 30 ml PO Q6H PRN PRN Reason: Constipation Stop: 04/16/23 14:34 Metformin HCl (Metformin Hcl 500 Mg Tab) 500 mg PO BIDM [facility] Stop: 04/16/23 16:59 Last Admin: 03/19/23 08:46 Dose: 500 mg Metoprolol Succinate (Metoprolol Succ 25mg Ext Rel Tab) 12.5 mg PO BID [facility] Stop: 04/16/23 20:59 Last Admin: 03/19/23 08:45 Dose: 12.5 mg Miscellaneous (Carbohydrates For Hypoglycemia ) 15 - 30 gm PO UD PRN PRN Reason: Hypoglycemia Protocol Stop: 04/16/23 14:34 Ondansetron HCl (Ondansetron Inj 2 Mg/Ml 2 Ml Vial) 4 mg IV Q6H PRN PRN Reason: Nausea Stop: 04/16/23 14:34 Polyethylene Glycol (Polyethylene (Miralax) 17 Gm Pack) 17 gm PO DAILY PRN PRN Reason: Constipation Stop: 04/16/23 14:34 Potassium Chloride (Potassium Chloride 10 Meq Tabcr) 10 meq PO QAM NABEEL Stop: 04/17/23 08:59 Last Admin: 03/19/23 08:50 Dose: 10 meq Pravastatin Sodium (Pravastatin Sod 40 Mg Tab) 40 mg PO HS NABEEL Stop: 04/16/23 20:59 Last Admin: 03/18/23 21:39 Dose: 40 mg Umeclidinium/Vilanterol (Umeclidinium/Vilanterol 62.5/25mcg 7 Puffs/Inhaler) 1 puffs INH DAILY NABEEL Stop: 04/17/23 08:59 Last Admin: 03/19/23 08:44 Dose: 1 puffs (8) Metastatic lung cancer (metastasis from lung to other site) Laterality: unspecified laterality Qualified Code(s): C34.90 - Malignant neoplasm of unspecified part of unspecified bronchus or lung
[2023-03-19] MEDS: FUROSEMIDE 20 MG TAB PO SCH (16:52)
[2023-03-19] MEDS ORDERED: MICONAZOLE NITRATE POWDER 85 GM EXT PRN (18:42)
[2023-03-19] MEDS: PRAVASTATIN SOD 40 MG TAB PO SCH (20:02)
[2023-03-20] MEDS: ENOXAPARIN INJ 40 MG/0.4 ML SYR SQ SCH ×2 (05:12→15:09)
--- NOTE | 2023-03-20 05:32 | Electrocardiogram Report ---
Test Reason : Blood Pressure : / mmHG Vent. Rate : 099 BPM Atrial Rate : 099 BPM P-R Int : 138 ms QRS Dur : 082 ms QT Int : 328 ms P-R-T Axes : 058 054 053 degrees QTc Int : 420 ms Normal sinus rhythm Possible Left atrial enlargement Borderline ECG When compared with ECG of 17-FEB-2023 15:51, Criteria for Septal infarct are no longer Present Nonspecific T wave abnormality no longer evident in Inferior leads Nonspecific T wave abnormality, improved in Anterolateral leads Confirmed by Jonathon Wasserman ([id number]) on 03/20/2023 5:31:40 AM Referred By: REFERRED SELF Confirmed By:Jonathon Wasserman
[2023-03-20] MEDS: LEVOTHYROXINE SODIUM 150 MCG TABLET PO SCH (05:41)
[2023-03-20] MEDS: ACETAMINOPHEN 325 MG TAB PO PRN ×3 (06:23→22:26)
[2023-03-20 07:55] LABS: BUN Creatinine Ratio 36.6 (10-20); Calcium 8.6 mg/dl (8.6-10.3); Creatinine Clr Calc Pharmacy 140.5 ml/min; Est GFR (African American) 124.8 ml/min; Est GFR (Non-African American) 107.7 ml/min
[2023-03-20] MEDS: ASPIRIN 81 MG ECTAB PO SCH (08:53)
[2023-03-20] MEDS: amLODIPine BESYLATE 5 MG TAB PO SCH (08:54)
[2023-03-20] MEDS: FUROSEMIDE 40 MG TAB PO SCH (08:54)
[2023-03-20] MEDS: EZETIMIBE 10 MG TABLET PO SCH (08:54)
[2023-03-20] MEDS: metFORMIN HCL 500 MG TAB PO SCH ×2 (08:54→17:23)
[2023-03-20] MEDS: METOPROLOL SUCC 25MG EXT REL TAB PO SCH ×2 (08:54→20:12)
[2023-03-20] MEDS: UMECLIDINIUM/VILANTEROL 62.5/25MCG 7 PUFFS/INHALER INH SCH (08:58)
[2023-03-20] MEDS: FLUTICASONE FUROATE 100MCG 14 PUFFS/INHALER INH SCH (08:58)
[2023-03-20] MEDS: POTASSIUM CHLORIDE 10 MEQ TABCR PO SCH (09:00)
--- NOTE | 2023-03-20 13:21 | XRay Report ---
XR chest 1V portable CLINICAL HISTORY: SOB/fluid overload. COMPARISON STUDY: Chest radiograph March 17, 2023. Chest CT January 30, 2023. FINDINGS: Right pleural catheter remains in place. Suspected moderate right pleural effusion is simil ar to prior exam. Asymmetric interstitial thickening and right lung opacities persist. There is mild interstitial thickening within the left lung. No pneumothorax. Cardiomediastinal silhouette is stable . IMPRESSION: 1. Right pleural catheter in place. No significant change in a suspected moderate right pleural effus ion with associated airspace opacity and asymmetric interstitial thickening within the right lung. 2. No pneumothorax. ACT 112: Negative or not required by law. Electronically signed by: Nehemias Holt M.D. 03/20/2023 1:20 PM
[2023-03-20] MEDS ORDERED: FUROSEMIDE 40 MG/4 ML VIAL IV ONE (14:00)
--- NOTE | 2023-03-20 14:08 | Hospitalist Progress Note ---
Date of Service March 20, 2023 Assessment & Plan (1) Acute and chronic respiratory failure with hypoxia: Plan: presented in respiratory distress that rapidly improved with Lasix, BiPAP, and pleural cath drainage Imaging consistent with acute on chronic HFpEF and worsened pleural effusion d/t underlying lung ca Pt reports medication compliance no e/o COPD exacerbation on exam continue with supplemental O2, BiPAP for sleep and prn, Furosemide, and daily drainage of pleural cath for now (normally done at home by family members and FLAP MAKER) Has been feeling much better with daily drainage from the pleural catheter Discussed with the picker packer and the drainage will be done daily as planned She has been feeling a lot better and will have PT OT evaluation Clinically not yet any better to be discharged Has been requiring more oxygen Will give an extra Lasix today We will get a repeat chest x-ray tomorrow to evaluate congestion further Seems to be not yet ready to go home and is still requiring 10 L of oxygen to maintain saturation Chest x-ray showed increasing congestion mostly on the right side with effusion Will give extra dose of 40 mg Lasix IV and continue drainage (2) Pleural effusion on right: Plan: continue to drain with catheter, for now increase to daily continue to treat HFpEF continue to treat lung ca, recently started Keytruda Will have drainage from the Pleurx catheter daily Catheter management will be done by marking clerk as an outpatient (3) Acute and chronic respiratory failure with hypercapnia: Plan: as above under acute and chronic respiratory failure with hypoxia continue BiPAP for sleep Denies any significant respiratory symptoms (4) Chronic diastolic (congestive) heart failure: Plan: acute on chronic diastolic CHF, + vascular congestion on imaging improved with IV Furosemide and BiPAP continue home dose of furosemide, titrate up if needed No significant fluid overload Continue the current dose of medication Received 1 dose of Lasix intravenously today with potassium supplement (5) Pulmonary hypertension: Plan: continue furosemide, BiPAP (6) CAD (coronary artery disease): Plan: no complaints at this time continue BB, asa, statin therapy (7) Diabetes mellitus, type II: Plan: continue metformin, diabetic diet, hypoglycemic protocol glucose checks achs, CDI if needed (8) Metastatic lung cancer (metastasis from lung to other site): Plan: recently started Keytruda We will continue current dose of Keytruda (9) COPD, group D, by GOLD 2017 classification: Plan: continue Trelegy Ellipita not currently with exacerbation Will give 1 treatment of nebulized bronchodilator (10) HTN (hypertension): Plan: continue metoprolol, furosemide (titrate up if needed) (11) Hypothyroid: Plan: continue levothyroxine no indication to check TSH at this time (12) HLD (hyperlipidemia): Plan: continue statin therapy no indication to check a lipid panel at this time Admission and Anticipated Discharge Date Admission Date: March 17, 2023 Subjective 03/18/2023 The patient was seen and examined in medical telemetry unit She has been feeling much better since admission Denies any significant shortness of breath at rest We will get PT and OT evaluation Discussed with the health safety specialist and advised to have daily drainages of fluid 03/19/2023 The patient was seen and examined in medical telemetry unit She is requiring more oxygen to maintain saturation A little shortness of breath at rest Denies any chest pain and/or palpitation 03/20/2023 The patient was seen and examined in medical telemetry unit She has been more wheezy today and is still requiring 10 L to maintain saturation Chest x-ray done and showed more congestion specially in the right lung She will have another dose of Lasix today and will not be discharged Review of Systems Review of Systems: All systems reviewed and are unremarkable except as noted below Physical Exam Physical Exam: Lying in bed without any acute distress Constitutional: well developed, well nourished, + ill appearing and + obese Eyes: PERRL, conjunctivae normal, anicteric sclerae ENMT: external ear and nose normal, oropharynx normal Neck: trachea midline, no thyromegaly Respiratory: no respiratory distress Auscultation: + diminished lung sounds and + crackles (Bibasally more on the right) Cardiovascular: Rate/Rhythm: regular rate and regular rhythm; not tachycardic Heart Sounds: normal S1 and normal S2; no murmur Extremities: no edema Gastrointestinal (Abdomen): Inspection/Auscultation: normal bowel sounds; abdomen not distended Percussion/Palpation: abdomen soft; abdomen nontender Neurologic: normal touch/pain/proprioception and moves all extremities; no focal motor deficits Psychiatric: A+Ox3, euthymic affect Lymphatic: no cervical or axillary lymphadenopathy Results & Data Results & Data Vital Signs (Past 12 Hours) Vital Signs Temp Pulse Pulse Pulse Resp BP BP 03/20/23 12:30 36.8 C 73 20 110/50 L 03/20/23 12:11 03/20/23 09:09 03/20/23 07:00 79 03/20/23 07:35 75 18 03/20/23 07:37 36.9 C 74 20 105/65 03/20/23 02:58 36.7 C 73 18 106/67 Pulse Ox O2 Del Method O2 Flow Rate 03/20/23 12:30 92 High Flow Nasal Cannula 10 03/20/23 12:11 High Flow Nasal Cannula 03/20/23 09:09 High Flow Nasal Cannula 10 03/20/23 07:00 03/20/23 07:35 92 Nasal Cannula 10 03/20/23 07:37 93 High Flow Nasal Cannula 03/20/23 02:58 91 High Flow Nasal Cannula Laboratory Results BMP 03/20/23 07:04 Sodium 138 Potassium 4.0 Chloride 94 L Carbon Dioxide 38 H BUN 15 Creatinine 0.41 L Glucose 121 H Calcium 8.6 Medications Administered Current Inpatient Medications Acetaminophen (Acetaminophen 325 Mg Tab) 650 mg PO Q4H PRN PRN Reason: pain/fever Stop: 04/16/23 14:34 Last Admin: 03/20/23 06:23 Dose: 650 mg Amlodipine Besylate (Amlodipine Besylate 5 Mg Tab) 2.5 mg PO DAILY NABEEL Stop: 04/17/23 08:59 Last Admin: 03/20/23 08:54 Dose: 2.5 mg Aspirin (Aspirin 81 Mg Ectab) 81 mg PO DAILY NABEEL Stop: 04/17/23 08:59 Last Admin: 03/20/23 08:53 Dose: 81 mg Dextrose (Dextrose 50% 50 Ml Syringe) 25 - 50 ml IV UD PRN; Protocol PRN Reason: Hypoglycemia Protocol Stop: 04/16/23 14:34 Ezetimibe (Ezetimibe 10 Mg Tablet) 10 mg PO DAILY NABEEL Stop: 04/17/23 08:59 Last Admin: 03/20/23 08:54 Dose: 10 mg Enoxaparin Sodium (Enoxaparin Inj 40 Mg/0.4 Ml Syr) 40 mg SQ Q12H NABEEL Stop: 04/16/23 17:59 Last Admin: 03/20/23 05:12 Dose: Not Given Fluticasone Furoate (Fluticasone Furoate 100mcg 14 Puffs/Inhaler) 1 puffs INH DAILY NABEEL Stop: 04/17/23 08:59 Last Admin: 03/20/23 08:58 Dose: 1 puffs Furosemide (Furosemide 40 Mg Tab) 40 mg PO QAM [facility] Stop: 04/17/23 08:59 Last Admin: 03/20/23 08:54 Dose: 40 mg Furosemide (Furosemide 20 Mg Tab) 20 mg PO DAILY@1700 [facility] Stop: 04/16/23 18:14 Last Admin: 03/19/23 16:52 Dose: 20 mg Glucagon (Glucagon For Inj 1 Mg Vial) 1 mg SQ UD PRN; Protocol PRN Reason: Hypoglycemia Protocol Stop: 04/16/23 14:34 Glucose (Glucose 10 Tab/Tube) 4 - 8 tab PO UD PRN; Protocol PRN Reason: Hypoglycemia Treatment Stop: 04/16/23 14:34 Glucose (Glucose 40% Gel 15 Gm Tube) 15 - 30 gm PO UD PRN; Protocol PRN Reason: Hypoglycemia Protocol Stop: 04/16/23 14:34 Levothyroxine Sodium (Levothyroxine Sodium 150 Mcg Tablet) 150 mcg PO DAILYBB [facility] Stop: 04/17/23 06:29 Last Admin: 03/20/23 05:41 Dose: 150 mcg Magnesium Hydroxide (Magnesium Hydroxide Susp 30 Ml Udc) 30 ml PO Q6H PRN PRN Reason: Constipation Stop: 04/16/23 14:34 Metformin HCl (Metformin Hcl 500 Mg Tab) 500 mg PO BIDM [facility] Stop: 04/16/23 16:59 Last Admin: 03/20/23 08:54 Dose: 500 mg Metoprolol Succinate (Metoprolol Succ 25mg Ext Rel Tab) 12.5 mg PO BID [facility] Stop: 04/16/23 20:59 Last Admin: 03/20/23 08:54 Dose: 12.5 mg Miconazole Nitrate (Miconazole Nitrate Powder 85 Gm) 1 appln EXT BID PRN PRN Reason: Affected Skin Folds Stop: 04/18/23 18:41 Miscellaneous (Carbohydrates For Hypoglycemia ) 15 - 30 gm PO UD PRN PRN Reason: Hypoglycemia Protocol Stop: 04/16/23 14:34 Ondansetron HCl (Ondansetron Inj 2 Mg/Ml 2 Ml Vial) 4 mg IV Q6H PRN PRN Reason: Nausea Stop: 04/16/23 14:34 Polyethylene Glycol (Polyethylene (Miralax) 17 Gm Pack) 17 gm PO DAILY PRN PRN Reason: Constipation Stop: 04/16/23 14:34 Potassium Chloride (Potassium Chloride 10 Meq Tabcr) 10 meq PO QAM NABEEL Stop: 04/17/23 08:59 Last Admin: 03/20/23 09:00 Dose: 10 meq Pravastatin Sodium (Pravastatin Sod 40 Mg Tab) 40 mg PO HS NABEEL Stop: 04/16/23 20:59 Last Admin: 03/19/23 20:02 Dose: 40 mg Umeclidinium/Vilanterol (Umeclidinium/Vilanterol 62.5/25mcg 7 Puffs/Inhaler) 1 puffs INH DAILY NABEEL Stop: 04/17/23 08:59 Last Admin: 03/20/23 08:58 Dose: 1 puffs (8) Metastatic lung cancer (metastasis from lung to other site) Laterality: unspecified laterality Qualified Code(s): C34.90 - Malignant neoplasm of unspecified part of unspecified bronchus or lung
[2023-03-20] MEDS ORDERED: ALBUTEROL 0.083% NEBU SOLN 3 ML VIAL NEB ONE (14:09)
[2023-03-20] MEDS: FUROSEMIDE 20 MG TAB PO SCH (17:23)
[2023-03-20] MEDS: PRAVASTATIN SOD 40 MG TAB PO SCH (20:41)
[2023-03-21] MEDS ORDERED: METOPROLOL TARTRATE 1 MG/ML VIAL IV STA ×2 (02:09→02:30)
[2023-03-21] MEDS ORDERED: METOPROLOL TARTRATE 1 MG/ML VIAL IV ONE (02:14)
[2023-03-21] MEDS ORDERED: DEXTROSE 50% 50 ML SYRINGE IV PRN (02:50)
[2023-03-21] MEDS ORDERED: GLUCOSE 40% GEL 15 GM TUBE PO PRN (02:50)
[2023-03-21] MEDS ORDERED: CARBOHYDRATES FOR HYPOGLYCEMIA PO PRN (02:50)
[2023-03-21] MEDS ORDERED: GLUCAGON FOR INJ 1 MG VIAL SQ PRN (02:50)
[2023-03-21] MEDS ORDERED: Heparin IV Adult Wt-Based Low-Dose *NO* Bolus Protocol IV ONE (02:50)
[2023-03-21] MEDS ORDERED: METOPROLOL TARTRATE 1 MG/ML VIAL IV PRN (02:50)
[2023-03-21] MEDS ORDERED: GLUCOSE 10 TAB/TUBE PO PRN (02:50)
[2023-03-21 03:04] LABS: BUN Creatinine Ratio 34.6 (10-20); Calcium 8.8 mg/dl (8.6-10.3); Creatinine Clr Calc Pharmacy 110.8 ml/min; Est GFR (African American) 115.4 ml/min; Est GFR (Non-African American) 99.6 ml/min; Magnesium 1.8 mg/dl (1.7-2.4)
[2023-03-21 03:22] LABS: Albumin Level 3.4 gm/dl (3.4-5.0); Bilirubin,Total 0.3 mg/dl (0.2-1.0); Globulin 3.5 gm/dl (2.5-4.0); Total Protein 6.9 gm/dl (6.0-8.3)
[2023-03-21 03:28] LABS: Troponin I High Sensitivity 4.3 pg/ml (0-14)
[2023-03-21] MEDS: HEPARIN SODIUM/DEXTROSE 25,000 UNITS/500 ML BAG IV SCH (04:03)
[2023-03-21] MEDS: LEVOTHYROXINE SODIUM 150 MCG TABLET PO SCH (06:24)
--- NOTE | 2023-03-21 07:15 | Communication Note ---
Date of Service: March 21, 2023 Went to [facility] last night. Received iv Lopressor and was started on low dose iv heparin and transferred to tele. echo and cardiology consulted. Gerard limon.
[2023-03-21] MEDS: ACETAMINOPHEN 325 MG TAB PO PRN ×2 (07:19→12:58)
--- NOTE | 2023-03-21 08:48 | Pulmonary Consultation ---
Date of Consultation March 21, 2023 Assessment & Plan (1) Acute and chronic respiratory failure with hypoxia: (2) Pleural effusion on right: (3) COPD (chronic obstructive pulmonary disease): COPD type: unspecified COPD Qualified Code(s): J44.9 - Chronic obstructive pulmonary disease, unspecified (4) BHAVIK on CPAP: (5) CHF (congestive heart failure): Heart failure chronicity: acute on chronic Heart failure type: unspecified Qualified Code(s): I50.9 - Heart failure, unspecified (6) Metastatic lung cancer (metastasis from lung to other site): Laterality: unspecified laterality Qualified Code(s): C34.90 - Malignant neoplasm of unspecified part of unspecified bronchus or lung Plan -- Acute on chronic hypoxic respiratory failure Multifactorial Underlying right-sided pleural effusion as well as lung cancer New onset A-fib also playing a role Treated with O2 supplementation to keep O2 saturation 90-92% BiPAPCPAP nightly and as needed shortness of breath COVID-19 NAAT negative BNP 81, procalcitonin 0.2 --COPD Not in acute exacerbation On Trelegy at home Continue with bronchodilators --Metastatic lung cancer with malignant right-sided pleural effusion On Keytruda --BHAVIK Continue with CPAP -- New onset A-fib On heparin drip Plan: The chest x-ray today shows effusion on the right side, left lungs looks clear. The degree of hypoxia which the patient has along with new onset A-fib, pulmonary emboli should be ruled out CTA chest will be ordered Continue with diuretics to keep the patient negative balance Case discussed with Dr. Elkins Palliative care should also be consulted for the patient Please note the above document was generated using voice recognition software. It may contain grammatical, syntax or spelling errors.Any formal questions or concerns about the content, text or information contained within the body of this dictation should be directly addressed to the provider for clarification. History of Present Illness Attending Physician: Vidal Elkins MD History of Present Illness 68-year-old female presented to the hospital with complaints of shortness of breath Past medical history: HFpEF, pulmonary hypertension, coronary artery disease, diabetes, COPD, hypertension, hypothyroidism, dyslipidemia At the time of examination patient was saturating 93-95% on 100% FiO2, 25 L high flow She stated that she is feeling much better since coming to the hospital She has diuresed well. She denied any fever or chills at home She coughs and brings up yellowish phlegm. No hemoptysis No dysuria, no diarrhea. Had any headache, no blurry vision Has been draining her Pleurx catheter every other day Social history: [id number] smoking history, quit approximately 15 years ago. Allergies Allergy/AdvReac Type Severity Reaction Status Date / Time tetracycline AdvReac Mild HEADACHE Verified 02/24/23 09:38 Home Medications Medication Instructions Recorded Confirmed Type aspirin 81 mg tablet,delayed 81 mg PO QAM 01/13/19 02/24/23 History release furosemide 40 mg tablet (Lasix) 40 mg PO QAM #30 tabs 01/16/19 03/17/23 Rx amlodipine 2.5 mg tablet 2.5 mg PO DAILY 03/18/21 03/17/23 History elderberry fruit 200 mg capsule 200 mg PO QAM ##0 03/18/21 02/24/23 History ezetimibe 10 mg tablet 10 mg PO DAILY 03/18/21 03/17/23 History metformin 500 mg tablet 500 mg PO BIDM 03/18/21 03/17/23 History levothyroxine 150 mcg tablet 150 mcg PO QAM 10/24/22 03/17/23 History turmeric 400 mg capsule 400 mg PO DAILY 10/24/22 02/24/23 History metoprolol succinate 25 mg 12.5 mg PO BID 12/02/22 03/17/23 History tablet,extended release 24 hr fluticasone fur. 100 mcg-umeclid 1 inh inhalation QAM 01/03/23 03/17/23 History 62.5 mcg-vilant 25 mcg inhalat.powder (Trelegy Ellipta) pravastatin 40 mg tablet 40 mg PO HS 01/30/23 03/17/23 History ondansetron HCl 8 mg tablet 8 mg PO Q8H PRN Nausea or Vomiting 03/17/23 03/17/23 History potassium chloride 10 mEq 10 meq PO QAM 03/17/23 03/17/23 History tablet,extended release Patient History Medical History (Updated 03/17/23 @ 17:14 by Bettye Hernandez MD) Acute and chronic respiratory failure with hypoxia Alcohol use Alkalosis, metabolic CAD (coronary artery disease) NSTEMI 2008 - moderate nonobstructive disease, no stenting Carotid stenosis Chronic diastolic (congestive) heart failure Chronic respiratory failure with hypoxia Constipation COPD, group D, by GOLD 2017 classification Diabetes mellitus, type II HLD (hyperlipidemia) HTN (hypertension) Hypothyroid Malignant pleural effusion Metastatic lung cancer (metastasis from lung to other site) (12/11/22) Obesity (BMI 30.0-34.9) BHAVIK on CPAP Primary cancer of right lower lobe of lung (01/31/22) s/p radiation Pulmonary hypertension Right lower lobe pneumonia Surgical History S/P cholecystectomy Family History Mother , age 69 Heart disease Rheumatoid arthritis Osteoarthritis Father , age 69 Myocardial infarction Asthma COPD (chronic obstructive pulmonary disease) Sister , age 29 Lung disease Other Diabetes Social History (Updated 03/17/23 @ 14:53 by Bettye Hernandez MD) Smoking Status: Former smoker Tobacco Type: Cigarettes Age Started Using Tobacco: 18; Age Quit Using Tobacco: 60; packs per day: 2; Second Hand Exposure: No; Do You Dip or Chew Tobacco: No; Hx Alcohol Use: Yes Alcohol type: beer Alcohol type Comment: 2-3 beers per week Alcohol Intake Frequency: 2-3 x/Week Hx Substance Use: No Preferred Language: [place] Communication Ability: Effective Forklift Wheel Loader Required: No Beliefs That Will Affect Care: None marital status: / Current Living Situation: Alone Current Living Situation Comment: Pt's daughters lives near by current occupational status: retired and disabled 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 [employer] How many Children do You have: 3 Feels Safe at Home: Yes caffeine: Yes (Diet pepsi - 4 cans/day) Assistive Devices: CPAP, Glasses and Oxygen - Continuous Review of Systems Review of Systems: All systems reviewed & are unremarkable except as noted in HPI & below Physical Exam Physical Exam: Constitutional: No acute distress HEENT: EOMI, PERRLA Respiratory system: Decreased air entry on the right side, no wheeze, rhonchi, positive crackles bilateral lower lobes CVS: S1-S2 positive, no murmurs or gallops Abdomen: Soft, nontender, nondistended, positive bowel sounds x4, obese Extremities: +2 pulses bilaterally radialis/ dorsalis pedis, no cyanosis, +1 pitting edema bilateral lower extremity Neuro: Awake alert oriented x3 Psych: Normal mood and affect G/U: Positive Dominguez Skin: no rashes, warm and dry Lymphatic: no cervical or axillary lymphadenopathy Results & Data Results & Data Vital Signs (Past 12 Hours) Vital Signs Temp Pulse Pulse Pulse Resp BP BP 03/21/23 08:13 36.9 C 71 20 03/21/23 08:00 92 H 20 03/21/23 02:53 88 96/61 L 03/21/23 03:46 03/21/23 02:56 88 26 H 03/21/23 02:18 156 H 150/74 H 03/21/23 02:11 160 H 124/83 03/21/23 02:07 133 H 03/21/23 02:54 36.8 C 82 21 03/21/23 02:35 152 H 20 03/21/23 02:35 143 H 104/67 03/21/23 02:34 150 H 104/67 03/21/23 02:15 163 H 150/74 H 03/20/23 23:51 36.6 C 81 20 104/64 03/20/23 22:00 77 BP Pulse Ox O2 Del Method O2 Flow Rate FiO2 03/21/23 08:13 109/66 93 High Flow Nasal Cannula 03/21/23 08:00 92 High Flow Nasal Cannula 30 100 03/21/23 02:53 03/21/23 03:46 BiPAP 03/21/23 02:56 92 65 03/21/23 02:18 83 L High Flow Nasal Cannula 03/21/23 02:11 83 L High Flow Nasal Cannula 03/21/23 02:07 88 L High Flow Nasal Cannula 03/21/23 02:54 96/61 L 92 BiPAP 03/21/23 02:35 104/62 90 High Flow Nasal Cannula 15 03/21/23 02:35 03/21/23 02:34 03/21/23 02:15 03/20/23 23:51 92 Room Air, CPAP 03/20/23 22:00 Laboratory Results 03/19/23 00:22 03/21/23 02:50 PG Care Time/CCT Total # of Minutes Spent Total Time Spent with Patient: Total time spent is greater than 50% in coordination of care (as documented) at patient's floor/unit and/or counseling patient: Coding Level of Care Code 00377 INT INP/OBS CARE 3MIN Diagnoses Acute and chronic respiratory failure with hypoxia J96.21 Pleural effusion on right J90 COPD (chronic obstructive pulmonary disease) J44.9 COPD type: unspecified COPD BHAVIK on CPAP G47.33; Z99.89 CHF (congestive heart failure) I50.9 Heart failure chronicity: acute on chronic Heart failure type: unspecified Metastatic lung cancer (metastasis from lung to other site) C34.90 Laterality: unspecified laterality
[2023-03-21] MEDS: amLODIPine BESYLATE 5 MG TAB PO SCH (09:26)
[2023-03-21] MEDS: ASPIRIN 81 MG ECTAB PO SCH (09:27)
[2023-03-21] MEDS: METOPROLOL SUCC 25MG EXT REL TAB PO SCH ×2 (09:27→20:17)
[2023-03-21] MEDS: FUROSEMIDE 40 MG TAB PO SCH (09:28)
[2023-03-21] MEDS: EZETIMIBE 10 MG TABLET PO SCH (09:29)
[2023-03-21] MEDS: FLUTICASONE FUROATE 100MCG 14 PUFFS/INHALER INH SCH (09:30)
[2023-03-21] MEDS: UMECLIDINIUM/VILANTEROL 62.5/25MCG 7 PUFFS/INHALER INH SCH (09:31)
--- NOTE | 2023-03-21 09:35 | Cardiology Consultation ---
Date of Consultation March 21, 2023 Assessment & Plan (1) Acute and chronic respiratory failure with hypoxia: (2) COPD (chronic obstructive pulmonary disease): (3) Metastatic lung cancer (metastasis from lung to other site): (4) PAF (paroxysmal atrial fibrillation): Plan Cardiology does not have much to offer here. The patient is currently in sinus rhythm. I agree with heparin for now and she may benefit from long-term anticoagulation of which I would recommend Eliquis. No additional cardiac testing is indicated at this time. If you need rate control for atrial fibrillation I think the best route of would be digoxin. History of Present Illness Attending Physician: Vidal Elkins MD History of Present Illness 68 year old female who carries a history of coronary artery disease S/P NSTEMI in 2008 with moderate non obstructive disease at that time, hypertensive heart disease, B/L carotid vascular disease, dyslipidemia, and prior history of tobacco abuse with COPD on chronic supplemental O2. Last year diagnosed with Lung CA S/P radiation. Considered inoperable due to comorbidities. PET scan with metastatic disease to liver and bones. She was hospitalized in October 2022 with worsening shortness of breath, multifactorial with acute on chronic respiratory failure with hypoxia and heart failure with preserved EF. Followed by Cardiology, Dr. Recio. Echo was updated demonstrating preserved LV systolic function with ejection fraction 55-60%, grade 1 diastolic dysfunction and no significant valvular heart disease. Treated with IV diuretics for several days with improvement in her volume status. Carvedilol was transition to metoprolol. Lisinopril was discontinued due to hyperkalemia. She was discharged on metoprolol succinate 12.5 mg daily, furosemide 40 mg daily and potassium 10 mEq. Follow-up BMP was stable. The patient was admitted with respiratory failure and has been seen by pulmonology who have recommended palliative care. She is currently clinically stable and has improved since hospital admission. She did have some atrial fibrillation this morning and was started on IV heparin. She is currently in a sinus mechanism. Allergies Allergy/AdvReac Type Severity Reaction Status Date / Time tetracycline AdvReac Mild HEADACHE Verified 02/24/23 09:38 Home Medications Medication Instructions Recorded Confirmed Type aspirin 81 mg tablet,delayed 81 mg PO QAM 01/13/19 02/24/23 History release furosemide 40 mg tablet (Lasix) 40 mg PO QAM #30 tabs 01/16/19 03/17/23 Rx amlodipine 2.5 mg tablet 2.5 mg PO DAILY 03/18/21 03/17/23 History elderberry fruit 200 mg capsule 200 mg PO QAM ##0 03/18/21 02/24/23 History ezetimibe 10 mg tablet 10 mg PO DAILY 03/18/21 03/17/23 History metformin 500 mg tablet 500 mg PO BIDM 03/18/21 03/17/23 History levothyroxine 150 mcg tablet 150 mcg PO QAM 10/24/22 03/17/23 History turmeric 400 mg capsule 400 mg PO DAILY 10/24/22 02/24/23 History metoprolol succinate 25 mg 12.5 mg PO BID 12/02/22 03/17/23 History tablet,extended release 24 hr fluticasone fur. 100 mcg-umeclid 1 inh inhalation QAM 01/03/23 03/17/23 History 62.5 mcg-vilant 25 mcg inhalat.powder (Trelegy Ellipta) pravastatin 40 mg tablet 40 mg PO HS 01/30/23 03/17/23 History ondansetron HCl 8 mg tablet 8 mg PO Q8H PRN Nausea or Vomiting 03/17/23 03/17/23 History potassium chloride 10 mEq 10 meq PO QAM 03/17/23 03/17/23 History tablet,extended release Patient History Medical History Acute and chronic respiratory failure with hypoxia Alcohol use Alkalosis, metabolic CAD (coronary artery disease) NSTEMI 2008 - moderate nonobstructive disease, no stenting Carotid stenosis Chronic diastolic (congestive) heart failure Chronic respiratory failure with hypoxia Constipation COPD, group D, by GOLD 2017 classification Diabetes mellitus, type II HLD (hyperlipidemia) HTN (hypertension) Hypothyroid Malignant pleural effusion Metastatic lung cancer (metastasis from lung to other site) (12/11/22) Obesity (BMI 30.0-34.9) BHAVIK on CPAP Primary cancer of right lower lobe of lung (01/31/22) s/p radiation Pulmonary hypertension Right lower lobe pneumonia Surgical History S/P cholecystectomy Family History Mother , age 69 Heart disease Rheumatoid arthritis Osteoarthritis Father , age 69 Myocardial infarction Asthma COPD (chronic obstructive pulmonary disease) Sister , age 29 Lung disease Other Diabetes Social History Smoking Status: Former smoker Tobacco Type: Cigarettes Age Started Using Tobacco: 18; Age Quit Using Tobacco: 60; packs per day: 2; Second Hand Exposure: No; Do You Dip or Chew Tobacco: No; Hx Alcohol Use: Yes Alcohol type: beer Alcohol type Comment: 2-3 beers per week Alcohol Intake Frequency: 2-3 x/Week Hx Substance Use: No Preferred Language: Dutch Communication Ability: Effective Fancy Needleworker Required: No Beliefs That Will Affect Care: None marital status: / Current Living Situation: Alone Current Living Situation Comment: Pt's daughters lives near by current occupational status: retired and disabled 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 All other 10 point review of systems are negative. Physical Exam Physical Exam: General: no acute distress and stated age Head: normocephalic, no masses, lesions, tenderness or abnormalities Eyes: conjunctiva are pink and non-injected, sclera clear Neck: supple, no adenopathy, no bruits, normal jugular venous pulse, no hepatojugular reflux Chest: normal shape and normal respiratory effort Lungs: clear to auscultation and percussion Cardiac Exam: - regular rate & rhythm, no murmurs gallops or rubs - normal S1, normal S2 Pulses: 2(+) throughout Abdomen: abdomen soft, non-tender, no abnormal masses and no hepatosplenomegaly Musculoskeletal: no gait disturbance, no joint inflammation, no deforming arthritis Extremities: no edema and no cyanosis Neuro: grossly normal exam Results & Data Vital Signs (Past 12 Hours) Vital Signs Temp Pulse Pulse Pulse Resp BP BP 03/21/23 08:13 36.9 C 71 20 03/21/23 08:00 92 H 20 03/21/23 02:53 88 96/61 L 03/21/23 03:46 03/21/23 02:56 88 26 H 03/21/23 02:18 156 H 150/74 H 03/21/23 02:11 160 H 124/83 03/21/23 02:07 133 H 03/21/23 02:54 36.8 C 82 21 03/21/23 02:35 152 H 20 03/21/23 02:35 143 H 104/67 03/21/23 02:34 150 H 104/67 03/21/23 02:15 163 H 150/74 H 03/20/23 23:51 36.6 C 81 20 104/64 03/20/23 22:00 77 BP Pulse Ox O2 Del Method O2 Flow Rate FiO2 03/21/23 08:13 109/66 93 High Flow Nasal Cannula 10 03/21/23 08:00 92 High Flow Nasal Cannula 30 100 03/21/23 02:53 03/21/23 03:46 BiPAP 03/21/23 02:56 92 65 03/21/23 02:18 83 L High Flow Nasal Cannula 10 03/21/23 02:11 83 L High Flow Nasal Cannula 10 03/21/23 02:07 88 L High Flow Nasal Cannula 10 03/21/23 02:54 96/61 L 92 BiPAP 03/21/23 02:35 104/62 90 High Flow Nasal Cannula 15 03/21/23 02:35 03/21/23 02:34 03/21/23 02:15 03/20/23 23:51 92 Room Air, CPAP 03/20/23 22:00 Laboratory Results Laboratory Results - last 24 hr 03/20/23 03/20/23 03/21/23 16:35 20:11 02:32 APTT PTT Ratio Sodium 139 Potassium 4.0 Chloride 95 L Carbon Dioxide 39 H Anion Gap 5 BUN 18 Creatinine 0.52 L Est Cr Clr Drug Dosing 110.8 Est GFR ( Amer) 115.4 Est GFR (Non-Af Amer) 99.6 BUN/Creatinine Ratio 34.6 H Glucose 114 H POC Glucose 140 H 121 H Calcium 8.8 Magnesium 1.8 Total Bilirubin 0.3 AST 19 ALT 34 Alkaline Phosphatase 125 H Troponin I High Sens 4.3 Total Protein 6.9 Albumin 3.4 Globulin 3.5 Albumin/Globulin Ratio 1.0 03/21/23 03/21/23 03/21/23 02:32 02:50 07:23 APTT PTT Ratio Sodium Cancelled Potassium Cancelled Chloride Cancelled Carbon Dioxide Cancelled Anion Gap Cancelled BUN Cancelled Creatinine Cancelled Est Cr Clr Drug Dosing Cancelled Est GFR ( Amer) Cancelled Est GFR (Non-Af Amer) Cancelled BUN/Creatinine Ratio Cancelled Glucose Cancelled POC Glucose Calcium Cancelled Magnesium Total Bilirubin Cancelled AST Cancelled ALT Cancelled Alkaline Phosphatase Cancelled Troponin I High Sens Cancelled 6.4 Total Protein Cancelled Albumin Cancelled Globulin Cancelled Albumin/Globulin Ratio Cancelled 03/21/23 03/21/23 03/21/23 08:09 09:42 12:12 APTT 30.8 PTT Ratio 1.1 Sodium Potassium Chloride Carbon Dioxide Anion Gap BUN Creatinine Est Cr Clr Drug Dosing Est GFR ( Amer) Est GFR (Non-Af Amer) BUN/Creatinine Ratio Glucose POC Glucose 118 H 142 H Calcium Magnesium Total Bilirubin AST ALT Alkaline Phosphatase Troponin I High Sens Total Protein Albumin Globulin Albumin/Globulin Ratio Medications Administered Current Inpatient Medications Acetaminophen (Acetaminophen 325 Mg Tab) 650 mg PO Q4H PRN PRN Reason: pain/fever Stop: 04/16/23 14:34 Last Admin: 03/21/23 07:19 Dose: 650 mg Amlodipine Besylate (Amlodipine Besylate 5 Mg Tab) 2.5 mg PO DAILY NABEEL Stop: 04/17/23 08:59 Last Admin: 03/21/23 09:26 Dose: 2.5 mg Aspirin (Aspirin 81 Mg Ectab) 81 mg PO DAILY NABEEL Stop: 04/17/23 08:59 Last Admin: 03/21/23 09:27 Dose: 81 mg Dextrose (Dextrose 50% 50 Ml Syringe) 25 - 50 ml IV UD PRN; Protocol PRN Reason: Hypoglycemia Protocol Stop: 04/16/23 14:34 Ezetimibe (Ezetimibe 10 Mg Tablet) 10 mg PO DAILY NABEEL Stop: 04/17/23 08:59 Last Admin: 03/21/23 09:29 Dose: 10 mg Fluticasone Furoate (Fluticasone Furoate 100mcg 14 Puffs/Inhaler) 1 puffs INH DAILY NABEEL Stop: 04/17/23 08:59 Last Admin: 03/21/23 09:30 Dose: 1 puffs Furosemide (Furosemide 40 Mg Tab) 40 mg PO QAM NABEEL Stop: 04/17/23 08:59 Last Admin: 03/21/23 09:28 Dose: 40 mg Furosemide (Furosemide 20 Mg Tab) 20 mg PO DAILY@1700 NABEEL Stop: 04/16/23 18:14 Last Admin: 03/20/23 17:23 Dose: 20 mg Glucagon (Glucagon For Inj 1 Mg Vial) 1 mg SQ UD PRN; Protocol PRN Reason: Hypoglycemia Protocol Stop: 04/16/23 14:34 Glucose (Glucose 10 Tab/Tube) 4 - 8 tab PO UD PRN; Protocol PRN Reason: Hypoglycemia Treatment Stop: 04/16/23 14:34 Glucose (Glucose 40% Gel 15 Gm Tube) 15 - 30 gm PO UD PRN; Protocol PRN Reason: Hypoglycemia Protocol Stop: 04/16/23 14:34 Heparin Sodium/Dextrose (Heparin Sodium/Dextrose) 25,000 units in 500 mls @ 19 mls/hr IV .Q24H NABEEL; Protocol Stop: 04/20/23 02:49 Last Titration: 03/21/23 11:36 Dose: 950 units/hr, 19 mls/hr Insulin Aspart (Insulin Aspart Per Unit Charge) 0 units SC ACHS [facility] Stop: 04/20/23 07:29 Last Admin: 03/21/23 09:40 Dose: 1 units Levothyroxine Sodium (Levothyroxine Sodium 150 Mcg Tablet) 150 mcg PO DAILYBB [facility] Stop: 04/17/23 06:29 Last Admin: 03/21/23 06:24 Dose: 150 mcg Magnesium Hydroxide (Magnesium Hydroxide Susp 30 Ml Udc) 30 ml PO Q6H PRN PRN Reason: Constipation Stop: 04/16/23 14:34 Metoprolol Succinate (Metoprolol Succ 25mg Ext Rel Tab) 12.5 mg PO BID [facility] Stop: 04/16/23 20:59 Last Admin: 03/21/23 09:27 Dose: 12.5 mg Metoprolol Tartrate (Metoprolol Tartrate 1 Mg/Ml Vial) 5 mg IV Q6 PRN PRN Reason: Tachycardia Stop: 04/20/23 02:49 Miconazole Nitrate (Miconazole Nitrate Powder 85 Gm) 1 appln EXT BID PRN PRN Reason: Affected Skin Folds Stop: 04/18/23 18:41 Miscellaneous (Carbohydrates For Hypoglycemia ) 15 - 30 gm PO UD PRN PRN Reason: Hypoglycemia Protocol Stop: 04/16/23 14:34 Ondansetron HCl (Ondansetron Inj 2 Mg/Ml 2 Ml Vial) 4 mg IV Q6H PRN PRN Reason: Nausea Stop: 04/16/23 14:34 Polyethylene Glycol (Polyethylene (Miralax) 17 Gm Pack) 17 gm PO DAILY PRN PRN Reason: Constipation Stop: 04/16/23 14:34 Potassium Chloride (Potassium Chloride 10 Meq Tabcr) 10 meq PO QAM [facility] Stop: 04/17/23 08:59 Last Admin: 03/21/23 11:33 Dose: 10 meq Pravastatin Sodium (Pravastatin Sod 40 Mg Tab) 40 mg PO HS [facility] Stop: 04/16/23 20:59 Last Admin: 03/20/23 20:41 Dose: 40 mg Umeclidinium/Vilanterol (Umeclidinium/Vilanterol 62.5/25mcg 7 Puffs/Inhaler) 1 puffs INH DAILY [facility] Stop: 04/17/23 08:59 Last Admin: 03/21/23 09:31 Dose: 1 puffs (2) COPD (chronic obstructive pulmonary disease) COPD type: unspecified COPD Qualified Code(s): J44.9 - Chronic obstructive pulmonary disease, unspecified (3) Metastatic lung cancer (metastasis from lung to other site) Laterality: unspecified laterality Qualified Code(s): C34.90 - Malignant neoplasm of unspecified part of unspecified bronchus or lung
[2023-03-21] MEDS: INSULIN ASPART PER UNIT CHARGE SC SCH ×4 (09:40→20:21)
[2023-03-21 10:28] LABS: Partial Thromboplastin Ratio 1.1; Partial Thromboplastin Time 30.8 Seconds (21.0-31.0)
[2023-03-21] MEDS ORDERED: HEPARIN SOD (PORCINE) 1000 UNIT/ML IV ONE ×2 (11:15→18:30)
[2023-03-21] MEDS ORDERED: OPTIRAY 320 125ml IV ONE (11:16)
[2023-03-21] MEDS: POTASSIUM CHLORIDE 10 MEQ TABCR PO SCH (11:33)
--- NOTE | 2023-03-21 11:47 | CT Scan Report ---
CT angio chest PE protocol CT DOSE: 888.19 mGy.cm HISTORY: 68 years-old Female with r/o PE. Acute hypoxia TECHNIQUE: Multiple CTA images of the chest were obtained after the intravenous administration of 110 ml Optiray. Coronal and sagittal MIPS were obtained from the axial data set and were submitted for review. All measurements were obtained according to NASCET criteria. A dose lowering technique was u tilized adhering to the principles of ALARA. COMPARISON: Chest radiograph 03/20/2023, CTA chest 01/30/2023 FINDINGS: CTA: Moderate cardiomegaly with moderate to extensive coronary artery calcifications. Atherosclerosis of t he thoracic aorta without aneurysm or dissection. There is at least 60% stenosis involving the proxim al left subclavian artery image 177 series 4 were which is similar to prior. No pulmonary emboli are identified. CT CHEST: No thyroid nodule. Stable appearance of the pathologically enlarged mediastinal and hilar lymph nodes . Stable index lymph node of the upper abdomen on image 22 series 4 measuring 1.7.-Hepatic lymph node s are generally stable. A pleural catheter is noted with distal tip projected along the medial right lung base on image 48 se kiah 4. Emphysema. Right greater than left intralobular septal thickening. Right lung predominant kiana undglass densities are noted with progressive extensive segmental consolidation which is most pronoun conrad in the right lung base. Right lung bronchial wall thickening. Narrowing of the bronchus intermedi us with occlusion of the right lower lobe bronchus, image 102. Stable 7 mm subpleural solid nodule th e lingula on image 109 series 4. Mild left basilar consolidation is also progressed. Small right pleu ral effusion. Hepatic metastasis increased in size from prior. Lesions in the right hepatic lobe measure up to appr oximately 3.3 cm, previously 2.6 cm. Unremarkable soft tissues. Skeletal metastasis have also progres sed. IMPRESSION: 1. No pulmonary emboli identified. 2. Small right pleural effusion with right basilar pleural catheter. 3. Progressive right greater than left intralobular septal thickening suggestive of asymmetric pulmon yumiko edema. Lymphangitic carcinomatosis could appear similarly. 4. Progressive extensive consolidation of the right lung, most pronounced in the basilar segments. 5. Narrowing of the bronchus intermedius with occlusion of the right lower lobe bronchus. 6. Tyra metastasis redemonstrated along with progressive hepatic and skeletal metastasis. ACT 112: Negative or not required by law. The above report was generated using voice recognition software. It may contain grammatical, syntax o r spelling errors. Electronically signed by: Jon Lieberman M.D. 03/21/2023 11:45 AM
--- NOTE | 2023-03-21 12:53 | Hospitalist Progress Note ---
Date of Service March 21, 2023 Assessment & Plan (1) Acute and chronic respiratory failure with hypoxia: Plan: presented in respiratory distress that rapidly improved with Lasix, BiPAP, and pleural cath drainage Imaging consistent with acute on chronic HFpEF and worsened pleural effusion d/t underlying lung ca Pt reports medication compliance no e/o COPD exacerbation on exam continue with supplemental O2, BiPAP for sleep and prn, Furosemide, and daily drainage of pleural cath for now (normally done at home by family members and [employer]) Has been feeling much better with daily drainage from the pleural catheter Discussed with the shot examiner and the drainage will be done daily as planned She has been feeling a lot better and will have PT OT evaluation Clinically not yet any better to be discharged Has been requiring more oxygen Will give an extra Lasix today We will get a repeat chest x-ray tomorrow to evaluate congestion further Seems to be not yet ready to go home and is still requiring 10 L of oxygen to maintain saturation Chest x-ray showed increasing congestion mostly on the right side with effusion Will give extra dose of 40 mg Lasix IV and continue drainage Condition got worse with the atrial fibrillation and more shortness of breath Chest x-ray showed more effusion on the right side otherwise clear Appreciate cardiology input and recommendation CTA did not show any pulmonary embolism We will continue with current medications as recommended including Lasix for more diuresis A-fib with RVR The patient developed atrial fibrillation with RVR last night Started with intravenous heparin and subcu Lovenox is discontinued Echo of the heart showed-normal LV size, LV systolic function is normal, EF 60 to 65%, grade 1 diastolic dysfunction, no significant valvular pathology, no pericardial effusion and mild pulmonary hypertension Rate is controlled this morning Appreciate cardiology input and recommendation Has been on beta-mike and the rate is controlled now (2) Pleural effusion on right: Plan: Metastatic lung cancer with pleural effusion continue to drain with catheter, for now increase to daily continue to treat HFpEF continue to treat lung ca, recently started Keytruda Will have drainage from the Pleurx catheter daily Catheter management will be done by cardiopulmonary physical therapist as an outpatient Will have more drainage from the right pleural effusion this morning (3) Acute and chronic respiratory failure with hypercapnia: Plan: as above under acute and chronic respiratory failure with hypoxia continue BiPAP for sleep Denies any significant respiratory symptoms Patient got worse and requiring more oxygen to maintain saturation (4) Chronic diastolic (congestive) heart failure: Plan: acute on chronic diastolic CHF, + vascular congestion on imaging improved with IV Furosemide and BiPAP continue home dose of furosemide, titrate up if needed No significant fluid overload Continue the current dose of medication Received 1 dose of Lasix intravenously today with potassium supplement We will be getting more Lasix for diuresis (5) Pulmonary hypertension: Plan: continue furosemide, BiPAP (6) CAD (coronary artery disease): Plan: no complaints at this time continue BB, asa, statin therapy (7) Diabetes mellitus, type II: Plan: continue metformin, diabetic diet, hypoglycemic protocol glucose checks achs, CDI if needed (8) Metastatic lung cancer (metastasis from lung to other site): Plan: recently started Keytruda We will continue current dose of Keytruda (9) COPD, group D, by GOLD 2017 classification: Plan: continue Trelegy Ellipita not currently with exacerbation Will give 1 treatment of nebulized bronchodilator (10) HTN (hypertension): Plan: continue metoprolol, furosemide (titrate up if needed) (11) Hypothyroid: Plan: continue levothyroxine no indication to check TSH at this time (12) HLD (hyperlipidemia): Plan: continue statin therapy no indication to check a lipid panel at this time Admission and Anticipated Discharge Date Admission Date: March 17, 2023 Subjective 03/18/2023 The patient was seen and examined in medical telemetry unit She has been feeling much better since admission Denies any significant shortness of breath at rest We will get PT and OT evaluation Discussed with the credit collections specialist and advised to have daily drainages of fluid 03/19/2023 The patient was seen and examined in medical telemetry unit She is requiring more oxygen to maintain saturation A little shortness of breath at rest Denies any chest pain and/or palpitation 03/20/2023 The patient was seen and examined in medical telemetry unit She has been more wheezy today and is still requiring 10 L to maintain saturation Chest x-ray done and showed more congestion specially in the right lung She will have another dose of Lasix today and will not be discharged 03/21/2023 The patient was seen and examined in telemetry unit She went into atrial fibrillation with more shortness of breath last night and was transferred to telemetry unit Has been requiring more oxygen to maintain saturation Has been feeling much better this morning when I saw her Still complains to have shortness of breath with minimal exertion Review of Systems Review of Systems: All systems reviewed and are unremarkable except as noted below Physical Exam Physical Exam: Lying in bed without any acute distress Constitutional: well developed, well nourished, + ill appearing and + obese Eyes: PERRL, conjunctivae normal, anicteric sclerae ENMT: external ear and nose normal, oropharynx normal Neck: trachea midline, no thyromegaly Respiratory: no respiratory distress Auscultation: + diminished lung sounds and + crackles (Bibasally more on the right) Cardiovascular: Rate/Rhythm: regular rate and regular rhythm; not tachycardic Heart Sounds: normal S1 and normal S2; no murmur Extremities: no edema Gastrointestinal (Abdomen): Inspection/Auscultation: normal bowel sounds; abdomen not distended Percussion/Palpation: abdomen soft; abdomen nontender Musculoskeletal: No acute arthritis involving any joint Neurologic: normal touch/pain/proprioception and moves all extremities; no focal motor deficits Psychiatric: A+Ox3, euthymic affect Lymphatic: no cervical or axillary lymphadenopathy Results & Data Results & Data Vital Signs (Past 12 Hours) Vital Signs Temp Pulse Pulse Pulse Resp BP BP 03/21/23 11:34 79 20 03/21/23 08:13 36.9 C 71 20 03/21/23 08:00 92 H 20 03/21/23 02:53 88 96/61 L 03/21/23 03:46 03/21/23 02:56 88 26 H 03/21/23 02:18 156 H 150/74 H 03/21/23 02:11 160 H 124/83 03/21/23 02:07 133 H 03/21/23 02:54 36.8 C 82 21 03/21/23 02:35 152 H 20 03/21/23 02:35 143 H 104/67 03/21/23 02:34 150 H 104/67 03/21/23 02:15 163 H 150/74 H BP Pulse Ox O2 Del Method O2 Flow Rate FiO2 03/21/23 11:34 92 High Flow Nasal Cannula 25 90 03/21/23 08:13 109/66 93 High Flow Nasal Cannula 10 03/21/23 08:00 92 High Flow Nasal Cannula 30 100 03/21/23 02:53 03/21/23 03:46 BiPAP 03/21/23 02:56 92 65 03/21/23 02:18 83 L High Flow Nasal Cannula 10 03/21/23 02:11 83 L High Flow Nasal Cannula 10 03/21/23 02:07 88 L High Flow Nasal Cannula 10 03/21/23 02:54 96/61 L 92 BiPAP 03/21/23 02:35 104/62 90 High Flow Nasal Cannula 15 03/21/23 02:35 03/21/23 02:34 03/21/23 02:15 Laboratory Results BMP 03/21/23 03/21/23 02:32 02:50 Sodium 139 Cancelled Potassium 4.0 Cancelled Chloride 95 L Cancelled Carbon Dioxide 39 H Cancelled BUN 18 Cancelled Creatinine 0.52 L Cancelled Glucose 114 H Cancelled Calcium 8.8 Cancelled Liver Function 03/21/23 03/21/23 Range/Units 02:32 02:50 Total Bilirubin 0.3 Cancelled (0.2-1.0) mg/dl AST 19 Cancelled (13-39) U/L ALT 34 Cancelled (7-52) U/L Alkaline Phosphatase 125 H Cancelled (34-104) U/L Albumin 3.4 Cancelled (3.4-5.0) gm/dl Medications Administered Current Inpatient Medications Acetaminophen (Acetaminophen 325 Mg Tab) 650 mg PO Q4H PRN PRN Reason: pain/fever Stop: 04/16/23 14:34 Last Admin: 03/21/23 07:19 Dose: 650 mg Amlodipine Besylate (Amlodipine Besylate 5 Mg Tab) 2.5 mg PO DAILY NABEEL Stop: 04/17/23 08:59 Last Admin: 03/21/23 09:26 Dose: 2.5 mg Aspirin (Aspirin 81 Mg Ectab) 81 mg PO DAILY NABEEL Stop: 04/17/23 08:59 Last Admin: 03/21/23 09:27 Dose: 81 mg Dextrose (Dextrose 50% 50 Ml Syringe) 25 - 50 ml IV UD PRN; Protocol PRN Reason: Hypoglycemia Protocol Stop: 04/16/23 14:34 Ezetimibe (Ezetimibe 10 Mg Tablet) 10 mg PO DAILY NABEEL Stop: 04/17/23 08:59 Last Admin: 03/21/23 09:29 Dose: 10 mg Fluticasone Furoate (Fluticasone Furoate 100mcg 14 Puffs/Inhaler) 1 puffs INH DAILY NABEEL Stop: 04/17/23 08:59 Last Admin: 03/21/23 09:30 Dose: 1 puffs Furosemide (Furosemide 40 Mg Tab) 40 mg PO QAM [facility] Stop: 04/17/23 08:59 Last Admin: 03/21/23 09:28 Dose: 40 mg Furosemide (Furosemide 20 Mg Tab) 20 mg PO DAILY@1700 NABEEL Stop: 04/16/23 18:14 Last Admin: 03/20/23 17:23 Dose: 20 mg Glucagon (Glucagon For Inj 1 Mg Vial) 1 mg SQ UD PRN; Protocol PRN Reason: Hypoglycemia Protocol Stop: 04/16/23 14:34 Glucose (Glucose 10 Tab/Tube) 4 - 8 tab PO UD PRN; Protocol PRN Reason: Hypoglycemia Treatment Stop: 04/16/23 14:34 Glucose (Glucose 40% Gel 15 Gm Tube) 15 - 30 gm PO UD PRN; Protocol PRN Reason: Hypoglycemia Protocol Stop: 04/16/23 14:34 Heparin Sodium/Dextrose (Heparin Sodium/Dextrose) 25,000 units in 500 mls @ 19 mls/hr IV .Q24H NABEEL; Protocol Stop: 04/20/23 02:49 Last Titration: 03/21/23 11:36 Dose: 950 units/hr, 19 mls/hr Insulin Aspart (Insulin Aspart Per Unit Charge) 0 units SC ACHS [facility] Stop: 04/20/23 07:29 Last Admin: 03/21/23 09:40 Dose: 1 units Levothyroxine Sodium (Levothyroxine Sodium 150 Mcg Tablet) 150 mcg PO DAILYBB [facility] Stop: 04/17/23 06:29 Last Admin: 03/21/23 06:24 Dose: 150 mcg Magnesium Hydroxide (Magnesium Hydroxide Susp 30 Ml Udc) 30 ml PO Q6H PRN PRN Reason: Constipation Stop: 04/16/23 14:34 Metoprolol Succinate (Metoprolol Succ 25mg Ext Rel Tab) 12.5 mg PO BID [facility] Stop: 04/16/23 20:59 Last Admin: 03/21/23 09:27 Dose: 12.5 mg Metoprolol Tartrate (Metoprolol Tartrate 1 Mg/Ml Vial) 5 mg IV Q6 PRN PRN Reason: Tachycardia Stop: 04/20/23 02:49 Miconazole Nitrate (Miconazole Nitrate Powder 85 Gm) 1 appln EXT BID PRN PRN Reason: Affected Skin Folds Stop: 04/18/23 18:41 Miscellaneous (Carbohydrates For Hypoglycemia ) 15 - 30 gm PO UD PRN PRN Reason: Hypoglycemia Protocol Stop: 04/16/23 14:34 Ondansetron HCl (Ondansetron Inj 2 Mg/Ml 2 Ml Vial) 4 mg IV Q6H PRN PRN Reason: Nausea Stop: 04/16/23 14:34 Polyethylene Glycol (Polyethylene (Miralax) 17 Gm Pack) 17 gm PO DAILY PRN PRN Reason: Constipation Stop: 04/16/23 14:34 Potassium Chloride (Potassium Chloride 10 Meq Tabcr) 10 meq PO QAM NABEEL Stop: 04/17/23 08:59 Last Admin: 03/21/23 11:33 Dose: 10 meq Pravastatin Sodium (Pravastatin Sod 40 Mg Tab) 40 mg PO HS NABEEL Stop: 04/16/23 20:59 Last Admin: 03/20/23 20:41 Dose: 40 mg Umeclidinium/Vilanterol (Umeclidinium/Vilanterol 62.5/25mcg 7 Puffs/Inhaler) 1 puffs INH DAILY NABEEL Stop: 04/17/23 08:59 Last Admin: 03/21/23 09:31 Dose: 1 puffs (8) Metastatic lung cancer (metastasis from lung to other site) Laterality: unspecified laterality Qualified Code(s): C34.90 - Malignant neoplasm of unspecified part of unspecified bronchus or lung
[2023-03-21 18:03] LABS: Partial Thromboplastin Ratio 1.1; Partial Thromboplastin Time 30.7 Seconds (21.0-31.0)
[2023-03-21] MEDS: FUROSEMIDE 20 MG TAB PO SCH (18:08)
[2023-03-21] MEDS: PRAVASTATIN SOD 40 MG TAB PO SCH (20:17)
[2023-03-22 02:14] LABS: Basophils # (auto) 0.07 K/uL (0-0.2); Basophils % (auto) 0.5 %; Eosinophils # (auto) 0.52 K/uL (0-0.50); Eosinophils % (auto) 3.5 %; Hematocrit (blood only) 33.3 % (37.0-47.0); Hemoglobin 9.9 g/dl (12.0-16.0); Immature Granulocytes # (auto) 0.07 K/uL (0.01-0.20); Immature Granulocytes % (auto) 0.5 %; Lymphocytes # (auto) 0.72 K/uL (1.2-3.4); Lymphocytes % (auto) 4.9 %; Mean Corpuscular Hemoglobin 27.7 pg (25.0-34.0); Mean Corpuscular Hgb Conc 29.7 g/dL (32.0-36.0); Mean Platelet Volume 10.6 fL (9.4-12.4); Monocytes # (auto) 1.07 K/uL (0.11-0.59); Monocytes % (auto) 7.3 %; Neutrophils # (auto) 12.22 K/uL (1.40-6.50); Neutrophils % (auto) 83.3 %; Platelet Count 300 K/uL (130-400); RDW Coefficient of Variation 15.2 % (11.5-14.5); RDW Standard Deviation 51.7 fL (36.4-46.3); Red Blood Count 3.58 M/uL (4.20-5.40); White Blood Count 14.67 K/ul (4.8-10.8)
[2023-03-22 02:23] LABS: BUN Creatinine Ratio 35.3 (10-20); Calcium 8.5 mg/dl (8.6-10.3); Creatinine Clr Calc Pharmacy 112.4 ml/min; Est GFR (African American) 116.1 ml/min; Est GFR (Non-African American) 100.2 ml/min; Magnesium 1.8 mg/dl (1.7-2.4); Potassium 3.9 mmol/L (3.5-5.1)
[2023-03-22 02:41] LABS: Partial Thromboplastin Ratio 1.1; Partial Thromboplastin Time 31.7 Seconds (21.0-31.0)
[2023-03-22] MEDS ORDERED: HEPARIN SOD (PORCINE) 1000 UNIT/ML IV ONE ×3 (03:00→20:23)
[2023-03-22] MEDS: ACETAMINOPHEN 325 MG TAB PO PRN ×3 (03:14→21:32)
[2023-03-22] MEDS: HEPARIN SODIUM/DEXTROSE 25,000 UNITS/500 ML BAG IV SCH ×2 (05:37→22:32)
[2023-03-22] MEDS: LEVOTHYROXINE SODIUM 150 MCG TABLET PO SCH (05:41)
--- NOTE | 2023-03-22 06:58 | Electrocardiogram Report ---
Test Reason : Blood Pressure : / mmHG Vent. Rate : 154 BPM Atrial Rate : 166 BPM P-R Int : 000 ms QRS Dur : 088 ms QT Int : 262 ms P-R-T Axes : 000 042 222 degrees QTc Int : 419 ms Atrial fibrillation with rapid ventricular response Abnormal ECG When compared with ECG of 17-MAR-2023 11:16, Atrial fibrillation has replaced Sinus rhythm Vent. rate has increased BY [address] now depressed in Anterior leads T wave inversion now evident in Inferior leads T wave inversion now evident in Lateral leads Confirmed by Tushar Munoz ([id number] on 03/22/2023 6:57:49 AM Referred By: REFERRED SELF Confirmed By:Vinicio Munoz
[2023-03-22] MEDS: FLUTICASONE FUROATE 100MCG 14 PUFFS/INHALER INH SCH (09:34)
[2023-03-22] MEDS: METOPROLOL SUCC 25MG EXT REL TAB PO SCH ×2 (09:34→20:28)
[2023-03-22] MEDS: FUROSEMIDE 40 MG TAB PO SCH (09:35)
[2023-03-22] MEDS: EZETIMIBE 10 MG TABLET PO SCH (09:35)
[2023-03-22] MEDS: amLODIPine BESYLATE 5 MG TAB PO SCH (09:35)
[2023-03-22] MEDS: UMECLIDINIUM/VILANTEROL 62.5/25MCG 7 PUFFS/INHALER INH SCH (09:36)
[2023-03-22] MEDS: POTASSIUM CHLORIDE 10 MEQ TABCR PO SCH (09:37)
--- NOTE | 2023-03-22 09:38 | Pulmonology Progress Note ---
Date of Service March 22, 2023 Assessment & Plan (1) Acute and chronic respiratory failure with hypoxia: (2) Pleural effusion on right: (3) COPD (chronic obstructive pulmonary disease): COPD type: unspecified COPD Qualified Code(s): J44.9 - Chronic obstructive pulmonary disease, unspecified (4) BHAVIK on CPAP: (5) CHF (congestive heart failure): Heart failure chronicity: acute on chronic Heart failure type: unspecified Qualified Code(s): I50.9 - Heart failure, unspecified (6) Metastatic lung cancer (metastasis from lung to other site): Laterality: unspecified laterality Qualified Code(s): C34.90 - Malignant neoplasm of unspecified part of unspecified bronchus or lung Plan CTA chest 03/21/2023 personally reviewed: Centrilobular emphysema appreciated bilaterally Interlobular thickening appreciated in the right upper lobe Large mass obstructing the right lower lobe Minimal dependent atelectasis left lower lobe Right hilar lymphadenopathy -- Acute on chronic hypoxic respiratory failure Multifactorial Underlying right-sided pleural effusion as well as lung cancer New onset A-fib also playing a role CTA chest negative for PE Treated with O2 supplementation to keep O2 saturation 90-92% BiPAPCPAP nightly and as needed shortness of breath COVID-19 NAAT negative BNP 81, procalcitonin 0.2 --COPD Not in acute exacerbation On Trelegy at home Continue with bronchodilators --Metastatic lung cancer with malignant right-sided pleural effusion On Keytruda --BHAVIK Continue with CPAP -- New onset A-fib On heparin drip Plan: CTA chest was negative for PE. There is some interlobular thickening which could be secondary to pulmonary edema, lymphocytic spread of her underlying cancer is also possibility Continue with diuretics to keep the patient negative balance. Would recommend to change Lasix to IV Continue with CPAP/BiPAP nightly and as needed shortness of breath Try to keep O2 saturation between 90-92% Case discussed with Dr. Elkins Overall prognosis of the patient is guarded, Palliative care should also be consulted for the patient Please note the above document was generated using voice recognition software. It may contain grammatical, syntax or spelling errors.Any formal questions or concerns about the content, text or information contained within the body of this dictation should be directly addressed to the provider for clarification. Admission and Anticipated Discharge Date Admission Date: March 17, 2023 Subjective Patient seen and examined at bedside. No acute distress, no adverse events overnight. Denies any headache, no nausea, no vomiting Shortness of breath is okay when she is sitting but on minimal exertion she does get significantly short of breath Denies any headache, no nausea, no vomiting Was saturating 91-92% on 80% FiO2, 25 L high flow Uses CPAP/BiPAP when she is sleeping Review of Systems Review of Systems: All systems reviewed & are unremarkable except as noted in Subjective Physical Exam Physical Exam: Constitutional: No acute distress HEENT: EOMI, PERRLA Respiratory system: Decreased air entry on the right side, no wheeze, rhonchi, positive crackles bilateral lower lobes CVS: S1-S2 positive, no murmurs or gallops Abdomen: Soft, nontender, nondistended, positive bowel sounds x4, obese Extremities: +2 pulses bilaterally radialis/ dorsalis pedis, no cyanosis, +1 pitting edema bilateral lower extremity Neuro: Awake alert oriented x3 Psych: Normal mood and affect G/U: Positive [place] Skin: no rashes, warm and dry Lymphatic: no cervical or axillary lymphadenopathy Results & Data Results & Data Vital Signs (Past 12 Hours) Vital Signs Temp Pulse Pulse Pulse Resp BP Pulse Ox 03/22/23 08:00 36.4 C L 73 24 114/74 90 03/22/23 07: 78 18 91 03/22/23 03:29 37.0 C 82 18 97/57 L 95 03/22/23 02:25 76 93 03/21/23 23:33 36.7 C 78 16 102/66 93 03/21/23 23:24 74 03/21/23 22:15 76 91 O2 Del Method O2 Flow Rate FiO2 03/22/23 08:00 High Flow Nasal Cannula 25 80 03/22/23 07:23 High Flow Nasal Cannula 25 80 03/22/23 03:29 High Flow Nasal Cannula 25 80 03/22/23 02:25 High Flow Nasal Cannula 25 80 03/21/23 23:33 BiPAP 85 03/21/23 23:24 03/21/23 22:15 High Flow Nasal Cannula 25 85 Laboratory Results 03/22/23 01:49 03/22/23 01:49 PG Care Time/CCT Total # of Minutes Spent Total Time Spent with Patient: Total time spent is greater than 50% in coordination of care (as documented) at patient's floor/unit and/or counseling patient: Coding Level of Care Code 81278 SUB INP/OBS CARE 350MIN Diagnoses Acute and chronic respiratory failure with hypoxia J96.21 Pleural effusion on right J90 COPD (chronic obstructive pulmonary disease) J44.9 COPD type: unspecified COPD BHAVIK on CPAP G47.33; Z99.89 CHF (congestive heart failure) I50.9 Heart failure chronicity: acute on chronic Heart failure type: unspecified Metastatic lung cancer (metastasis from lung to other site) C34.90 Laterality: unspecified laterality
[2023-03-22] MEDS: INSULIN ASPART PER UNIT CHARGE SC SCH ×4 (09:39→20:27)
[2023-03-22 10:07] LABS: Partial Thromboplastin Ratio 1.2
[2023-03-22] MEDS: ASPIRIN 81 MG ECTAB PO SCH (11:13)
--- NOTE | 2023-03-22 11:34 | Cardiology Progress Note ---
Date of Service March 22, 2023 Assessment & Plan (1) Acute and chronic respiratory failure with hypoxia: (2) COPD (chronic obstructive pulmonary disease): (3) Metastatic lung cancer (metastasis from lung to other site): (4) PAF (paroxysmal atrial fibrillation): Plan I reviewed the patient's telemetry. No additional atrial fibrillation since yesterday morning. She is currently clinically stable. She continues to be on heparin and consideration can be given for long-term anticoagulation with Eliquis depending on the patient's clinical course. Cardiology has nothing additional to add at this time. Admission and Anticipated Discharge Date Admission Date: March 17, 2023 Subjective The patient had an uneventful night. Review of Systems Review of Systems: Review of Systems: See HPI for pertinent positives. All other 10 point review of systems are negative. Physical Exam Physical Exam: General: no acute distress and stated age Head: normocephalic, no masses, lesions, tenderness or abnormalities Eyes: conjunctiva are pink and non-injected, sclera clear Neck: supple, no adenopathy, no bruits, normal jugular venous pulse, no hepatojugular reflux Chest: normal shape and normal respiratory effort Lungs: clear to auscultation and percussion Cardiac Exam: - regular rate & rhythm, no murmurs gallops or rubs - normal S1, normal S2 Pulses: 2(+) throughout Abdomen: abdomen soft, non-tender, no abnormal masses and no hepatosplenomegaly Musculoskeletal: no gait disturbance, no joint inflammation, no deforming arthritis Extremities: no edema and no cyanosis Neuro: grossly normal exam Results & Data Vital Signs (Past 12 Hours) Vital Signs Temp Pulse Pulse Pulse Resp BP Pulse Ox 03/22/23 10:02 74 03/22/23 08:00 36.4 C L 73 24 114/74 90 03/22/23 07:23 78 18 91 03/22/23 03:29 37.0 C 82 18 97/57 L 95 03/22/23 02:25 76 93 03/21/23 23:33 36.7 C 78 16 102/66 93 O2 Del Method O2 Flow Rate FiO2 03/22/23 10:02 03/22/23 08:00 High Flow Nasal Cannula 25 80 03/22/23 07:23 High Flow Nasal Cannula 25 80 03/22/23 03:29 High Flow Nasal Cannula 25 80 03/22/23 02:25 High Flow Nasal Cannula 25 80 03/21/23 23:33 BiPAP 85 Laboratory Results Laboratory Results - last 24 hr 03/21/23 03/21/23 03/21/23 12:12 16:37 17:14 WBC RBC Hgb Hct MCV MCH MCHC RDW Std Deviation RDW Coeff of Naa Plt Count MPV Immature Gran % (Auto) Neut % (Auto) Lymph % (Auto) [place] % (Auto) Eos % (Auto) Baso % (Auto) Neut # (Auto) Lymph # (Auto) [place] # (Auto) Eos # (Auto) Baso # (Auto) Immature Gran # (Auto) APTT 30.7 PTT Ratio 1.1 Sodium Potassium Chloride Carbon Dioxide Anion Gap BUN Creatinine Est Cr Clr Drug Dosing Est GFR ( Amer) Est GFR (Non-Af Amer) BUN/Creatinine Ratio Glucose POC Glucose 142 H 139 H Calcium Magnesium 03/21/23 03/22/23 03/22/23 20:03 01:49 01:49 WBC 14.67 H RBC 3.58 L Hgb 9.9 L Hct 33.3 L MCV 93.0 MCH 27.7 MCHC 29.7 L RDW Std Deviation 51.7 H RDW Coeff of Naa 15.2 H Plt Count 300 MPV 10.6 Immature Gran % (Auto) 0.5 Neut % (Auto) 83.3 Lymph % (Auto) 4.9 [place] % (Auto) 7.3 Eos % (Auto) 3.5 Baso % (Auto) 0.5 Neut # (Auto) 12.22 H Lymph # (Auto) 0.72 L [place] # (Auto) 1.07 H Eos # (Auto) 0.52 H Baso # (Auto) 0.07 Immature Gran # (Auto) 0.07 APTT PTT Ratio Sodium 137 Potassium 3.9 Chloride 93 L Carbon Dioxide 39 H Anion Gap 5 BUN 18 Creatinine 0.51 L Est Cr Clr Drug Dosing 112.4 Est GFR ( Amer) 116.1 Est GFR (Non-Af Amer) 100.2 BUN/Creatinine Ratio 35.3 H Glucose 147 H POC Glucose 122 H Calcium 8.5 L Magnesium 1.8 03/22/23 03/22/23 03/22/23 01:49 07:51 09:23 WBC RBC Hgb Hct MCV MCH MCHC RDW Std Deviation RDW Coeff of Naa Plt Count MPV Immature Gran % (Auto) Neut % (Auto) Lymph % (Auto) [place] % (Auto) Eos % (Auto) Baso % (Auto) Neut # (Auto) Lymph # (Auto) [place] # (Auto) Eos # (Auto) Baso # (Auto) Immature Gran # (Auto) APTT 31.7 H 33.0 H PTT Ratio 1.1 1.2 Sodium Potassium Chloride Carbon Dioxide Anion Gap BUN Creatinine Est Cr Clr Drug Dosing Est GFR ( Amer) Est GFR (Non-Af Amer) BUN/Creatinine Ratio Glucose POC Glucose 112 H Calcium Magnesium Medications Administered Current Inpatient Medications Acetaminophen (Acetaminophen 325 Mg Tab) 650 mg PO Q4H PRN PRN Reason: pain/fever Stop: 04/16/23 14:34 Last Admin: 03/22/23 09:42 Dose: 650 mg Amlodipine Besylate (Amlodipine Besylate 5 Mg Tab) 2.5 mg PO DAILY NABEEL Stop: 04/17/23 08:59 Last Admin: 03/22/23 09:35 Dose: 2.5 mg Aspirin (Aspirin 81 Mg Ectab) 81 mg PO DAILY NABEEL Stop: 04/17/23 08:59 Last Admin: 03/22/23 11:13 Dose: 81 mg Dextrose (Dextrose 50% 50 Ml Syringe) 25 - 50 ml IV UD PRN; Protocol PRN Reason: Hypoglycemia Protocol Stop: 04/16/23 14:34 Ezetimibe (Ezetimibe 10 Mg Tablet) 10 mg PO DAILY NABEEL Stop: 04/17/23 08:59 Last Admin: 03/22/23 09:35 Dose: 10 mg Fluticasone Furoate (Fluticasone Furoate 100mcg 14 Puffs/Inhaler) 1 puffs INH DAILY NABEEL Stop: 04/17/23 08:59 Last Admin: 03/22/23 09:34 Dose: 1 puffs Furosemide (Furosemide 40 Mg Tab) 40 mg PO QAM NABEEL Stop: 04/17/23 08:59 Last Admin: 03/22/23 09:35 Dose: 40 mg Furosemide (Furosemide 20 Mg Tab) 20 mg PO DAILY@1700 NABEEL Stop: 04/16/23 18:14 Last Admin: 03/21/23 18:08 Dose: 20 mg Glucagon (Glucagon For Inj 1 Mg Vial) 1 mg SQ UD PRN; Protocol PRN Reason: Hypoglycemia Protocol Stop: 04/16/23 14:34 Glucose (Glucose 10 Tab/Tube) 4 - 8 tab PO UD PRN; Protocol PRN Reason: Hypoglycemia Treatment Stop: 04/16/23 14:34 Glucose (Glucose 40% Gel 15 Gm Tube) 15 - 30 gm PO UD PRN; Protocol PRN Reason: Hypoglycemia Protocol Stop: 04/16/23 14:34 Heparin Sodium/Dextrose (Heparin Sodium/Dextrose) 25,000 units in 500 mls @ 25 mls/hr IV .Q20H NABEEL; Protocol Stop: 04/20/23 02:49 Last Titration: 03/22/23 07:12 Dose: 1,250 units/hr, 25 mls/hr Insulin Aspart (Insulin Aspart Per Unit Charge) 0 units SC ACHS [facility] Stop: 04/20/23 07:29 Last Admin: 03/22/23 09:39 Dose: 2 units Levothyroxine Sodium (Levothyroxine Sodium 150 Mcg Tablet) 150 mcg PO DAILYBB [facility] Stop: 04/17/23 06:29 Last Admin: 03/22/23 05:41 Dose: 150 mcg Magnesium Hydroxide (Magnesium Hydroxide Susp 30 Ml Udc) 30 ml PO Q6H PRN PRN Reason: Constipation Stop: 04/16/23 14:34 Metoprolol Succinate (Metoprolol Succ 25mg Ext Rel Tab) 12.5 mg PO BID [facility] Stop: 04/16/23 20:59 Last Admin: 03/22/23 09:34 Dose: 12.5 mg Metoprolol Tartrate (Metoprolol Tartrate 1 Mg/Ml Vial) 5 mg IV Q6 PRN PRN Reason: Tachycardia Stop: 04/20/23 02:49 Miconazole Nitrate (Miconazole Nitrate Powder 85 Gm) 1 appln EXT BID PRN PRN Reason: Affected Skin Folds Stop: 04/18/23 18:41 Miscellaneous (Carbohydrates For Hypoglycemia ) 15 - 30 gm PO UD PRN PRN Reason: Hypoglycemia Protocol Stop: 04/16/23 14:34 Ondansetron HCl (Ondansetron Inj 2 Mg/Ml 2 Ml Vial) 4 mg IV Q6H PRN PRN Reason: Nausea Stop: 04/16/23 14:34 Polyethylene Glycol (Polyethylene (Miralax) 17 Gm Pack) 17 gm PO DAILY PRN PRN Reason: Constipation Stop: 04/16/23 14:34 Potassium Chloride (Potassium Chloride 10 Meq Tabcr) 10 meq PO QAM [facility] Stop: 04/17/23 08:59 Last Admin: 03/22/23 09:37 Dose: 10 meq Pravastatin Sodium (Pravastatin Sod 40 Mg Tab) 40 mg PO HS NABEEL Stop: 04/16/23 20:59 Last Admin: 03/21/23 20:17 Dose: 40 mg Umeclidinium/Vilanterol (Umeclidinium/Vilanterol 62.5/25mcg 7 Puffs/Inhaler) 1 puffs INH DAILY NABEEL Stop: 04/17/23 08:59 Last Admin: 03/22/23 09:36 Dose: 1 puffs (2) COPD (chronic obstructive pulmonary disease) COPD type: unspecified COPD Qualified Code(s): J44.9 - Chronic obstructive pulmonary disease, unspecified (3) Metastatic lung cancer (metastasis from lung to other site) Laterality: unspecified laterality Qualified Code(s): C34.90 - Malignant neoplasm of unspecified part of unspecified bronchus or lung
--- NOTE | 2023-03-22 12:37 | Hospitalist Progress Note ---
Date of Service March 22, 2023 Assessment & Plan (1) Acute and chronic respiratory failure with hypoxia: Plan: presented in respiratory distress that rapidly improved with Lasix, BiPAP, and pleural cath drainage Imaging consistent with acute on chronic HFpEF and worsened pleural effusion d/t underlying lung ca Pt reports medication compliance no e/o COPD exacerbation on exam continue with supplemental O2, BiPAP for sleep and prn, Furosemide, and daily drainage of pleural cath for now (normally done at home by family members and ZINC SKIMMER) Has been feeling much better with daily drainage from the pleural catheter Discussed with the feed mixer helper and the drainage will be done daily as planned She has been feeling a lot better and will have PT OT evaluation Clinically not yet any better to be discharged Has been requiring more oxygen Will give an extra Lasix today We will get a repeat chest x-ray tomorrow to evaluate congestion further Seems to be not yet ready to go home and is still requiring 10 L of oxygen to maintain saturation Chest x-ray showed increasing congestion mostly on the right side with effusion Will give extra dose of 40 mg Lasix IV and continue drainage She has been getting intravenous Lasix to have more diuresis Condition got worse with the atrial fibrillation and more shortness of breath Chest x-ray showed more effusion on the right side otherwise clear Appreciate cardiology input and recommendation CTA did not show any pulmonary embolism We will continue with current medications as recommended including Lasix for more diuresis A-fib with RVR The patient developed atrial fibrillation with RVR last night Started with intravenous heparin and subcu Lovenox is discontinued Echo of the heart showed-normal LV size, LV systolic function is normal, EF 60 to 65%, grade 1 diastolic dysfunction, no significant valvular pathology, no pericardial effusion and mild pulmonary hypertension Rate is controlled this morning Appreciate cardiology input and recommendation Has been on beta-mike and the rate is controlled now Heart rate is controlled and is still on intravenous heparin and will go for [facility] likely for long-term anticoagulation (2) Pleural effusion on right: Plan: Metastatic lung cancer with pleural effusion continue to drain with catheter, for now increase to daily continue to treat HFpEF continue to treat lung ca, recently started Keytruda Will have drainage from the Pleurx catheter daily Catheter management will be done by stake setter as an outpatient Will have more drainage from the right pleural effusion this morning (3) Acute and chronic respiratory failure with hypercapnia: Plan: as above under acute and chronic respiratory failure with hypoxia continue BiPAP for sleep Denies any significant respiratory symptoms Patient got worse and requiring more oxygen to maintain saturation (4) Chronic diastolic (congestive) heart failure: Plan: acute on chronic diastolic CHF, + vascular congestion on imaging improved with IV Furosemide and BiPAP continue home dose of furosemide, titrate up if needed No significant fluid overload Continue the current dose of medication Received 1 dose of Lasix intravenously today with potassium supplement We will be getting more Lasix for diuresis (5) Pulmonary hypertension: Plan: continue furosemide, BiPAP (6) CAD (coronary artery disease): Plan: no complaints at this time continue BB, asa, statin therapy (7) Diabetes mellitus, type II: Plan: continue metformin, diabetic diet, hypoglycemic protocol glucose checks achs, CDI if needed (8) Metastatic lung cancer (metastasis from lung to other site): Plan: recently started Keytruda We will continue current dose of Keytruda We will ask for palliative care consult tomorrow after discussion with the patient (9) COPD, group D, by GOLD 2017 classification: Plan: continue Trelegy Ellipita not currently with exacerbation Will give 1 treatment of nebulized bronchodilator (10) HTN (hypertension): Plan: continue metoprolol, furosemide (titrate up if needed) (11) Hypothyroid: Plan: continue levothyroxine no indication to check TSH at this time (12) HLD (hyperlipidemia): Plan: continue statin therapy no indication to check a lipid panel at this time Admission and Anticipated Discharge Date Admission Date: March 17, 2023 Subjective 03/18/2023 The patient was seen and examined in medical telemetry unit She has been feeling much better since admission Denies any significant shortness of breath at rest We will get PT and OT evaluation Discussed with the powered bridge specialist and advised to have daily drainages of fluid 03/19/2023 The patient was seen and examined in medical telemetry unit She is requiring more oxygen to maintain saturation A little shortness of breath at rest Denies any chest pain and/or palpitation 03/20/2023 The patient was seen and examined in medical telemetry unit She has been more wheezy today and is still requiring 10 L to maintain saturation Chest x-ray done and showed more congestion specially in the right lung She will have another dose of Lasix today and will not be discharged 03/21/2023 The patient was seen and examined in telemetry unit She went into atrial fibrillation with more shortness of breath last night and was transferred to telemetry unit Has been requiring more oxygen to maintain saturation Has been feeling much better this morning when I saw her Still complains to have shortness of breath with minimal exertion 03/22/2023 The patient was seen and examined in telemetry unit She has been feeling better at rest but is still requiring 80% of FiO2 with 25 L flow Denies any symptoms at rest but gets short of breath with minimal exertion Denies any chest pain and/or palpitation Review of Systems Review of Systems: All systems reviewed and are unremarkable except as noted below Physical Exam Physical Exam: Sitting at the side of the bed without any acute distress Constitutional: well developed, well nourished, + ill appearing and + obese Eyes: PERRL, conjunctivae normal, anicteric sclerae ENMT: external ear and nose normal, oropharynx normal Neck: trachea midline, no thyromegaly Respiratory: no respiratory distress Auscultation: + diminished lung sounds and + crackles (Minimal crackles. More on the right side at the base) Cardiovascular: Rate/Rhythm: regular rate and regular rhythm; not tachycardic Heart Sounds: normal S1 and normal S2; no murmur Extremities: no edema Gastrointestinal (Abdomen): Inspection/Auscultation: normal bowel sounds; abdomen not distended Percussion/Palpation: abdomen soft; abdomen nontender Neurologic: normal touch/pain/proprioception and moves all extremities; no focal motor deficits Psychiatric: A+Ox3, euthymic affect Lymphatic: no cervical or axillary lymphadenopathy Results & Data Results & Data Vital Signs (Past 12 Hours) Vital Signs Temp Pulse Pulse Pulse Resp BP BP 03/22/23 12:11 03/22/23 11:45 75 16 03/22/23 12:00 37.0 C 77 22 116/74 03/22/23 10:02 74 03/22/23 08:00 36.4 C L 73 24 114/74 03/22/23 07:23 78 18 03/22/23 03:29 37.0 C 82 18 97/57 L 03/22/23 02:25 76 Pulse Ox O2 Del Method O2 Flow Rate FiO2 03/22/23 12:11 High Flow Nasal Cannula 25 80 03/22/23 11:45 90 High Flow Nasal Cannula 25 75 03/22/23 12:00 94 High Flow Nasal Cannula 25 80 03/22/23 10:02 03/22/23 08:00 90 High Flow Nasal Cannula 25 80 03/22/23 07:23 91 High Flow Nasal Cannula 25 80 03/22/23 03:29 95 High Flow Nasal Cannula 25 80 03/22/23 02:25 93 High Flow Nasal Cannula 25 80 Laboratory Results Short CBC 03/22/23 Range/Units 01:49 WBC 14.67 H (4.8-10.8) K/ul Hgb 9.9 L (12.0-16.0) g/dl Hct 33.3 L (37.0-47.0) % Plt Count 300 (130-400) K/uL BMP 03/22/23 01:49 Sodium 137 Potassium 3.9 Chloride 93 L Carbon Dioxide 39 H BUN 18 Creatinine 0.51 L Glucose 147 H Calcium 8.5 L Medications Administered Current Inpatient Medications Acetaminophen (Acetaminophen 325 Mg Tab) 650 mg PO Q4H PRN PRN Reason: pain/fever Stop: 04/16/23 14:34 Last Admin: 03/22/23 09:42 Dose: 650 mg Amlodipine Besylate (Amlodipine Besylate 5 Mg Tab) 2.5 mg PO DAILY NABEEL Stop: 04/17/23 08:59 Last Admin: 03/22/23 09:35 Dose: 2.5 mg Aspirin (Aspirin 81 Mg Ectab) 81 mg PO DAILY NABEEL Stop: 04/17/23 08:59 Last Admin: 03/22/23 11:13 Dose: 81 mg Dextrose (Dextrose 50% 50 Ml Syringe) 25 - 50 ml IV UD PRN; Protocol PRN Reason: Hypoglycemia Protocol Stop: 04/16/23 14:34 Ezetimibe (Ezetimibe 10 Mg Tablet) 10 mg PO DAILY NABEEL Stop: 04/17/23 08:59 Last Admin: 03/22/23 09:35 Dose: 10 mg Fluticasone Furoate (Fluticasone Furoate 100mcg 14 Puffs/Inhaler) 1 puffs INH DAILY NABEEL Stop: 04/17/23 08:59 Last Admin: 03/22/23 09:34 Dose: 1 puffs Furosemide (Furosemide 40 Mg Tab) 40 mg PO QAM NABEEL Stop: 04/17/23 08:59 Last Admin: 03/22/23 09:35 Dose: 40 mg Furosemide (Furosemide 20 Mg Tab) 20 mg PO DAILY@1700 [facility] Stop: 04/16/23 18:14 Last Admin: 03/21/23 18:08 Dose: 20 mg Glucagon (Glucagon For Inj 1 Mg Vial) 1 mg SQ UD PRN; Protocol PRN Reason: Hypoglycemia Protocol Stop: 04/16/23 14:34 Glucose (Glucose 10 Tab/Tube) 4 - 8 tab PO UD PRN; Protocol PRN Reason: Hypoglycemia Treatment Stop: 04/16/23 14:34 Glucose (Glucose 40% Gel 15 Gm Tube) 15 - 30 gm PO UD PRN; Protocol PRN Reason: Hypoglycemia Protocol Stop: 04/16/23 14:34 Heparin Sodium/Dextrose (Heparin Sodium/Dextrose) 25,000 units in 500 mls @ 28 mls/hr IV .[id number] [facility]; Protocol Stop: 04/20/23 02:49 Last Titration: 03/22/23 11:31 Dose: 1,400 units/hr, 28 mls/hr Insulin Aspart (Insulin Aspart Per Unit Charge) 0 units SC ACHS [facility] Stop: 04/20/23 07:29 Last Admin: 03/22/23 09:39 Dose: 2 units Levothyroxine Sodium (Levothyroxine Sodium 150 Mcg Tablet) 150 mcg PO DAILYBB [facility] Stop: 04/17/23 06:29 Last Admin: 03/22/23 05:41 Dose: 150 mcg Magnesium Hydroxide (Magnesium Hydroxide Susp 30 Ml Udc) 30 ml PO Q6H PRN PRN Reason: Constipation Stop: 04/16/23 14:34 Metoprolol Succinate (Metoprolol Succ 25mg Ext Rel Tab) 12.5 mg PO BID [facility] Stop: 04/16/23 20:59 Last Admin: 03/22/23 09:34 Dose: 12.5 mg Metoprolol Tartrate (Metoprolol Tartrate 1 Mg/Ml Vial) 5 mg IV Q6 PRN PRN Reason: Tachycardia Stop: 04/20/23 02:49 Miconazole Nitrate (Miconazole Nitrate Powder 85 Gm) 1 appln EXT BID PRN PRN Reason: Affected Skin Folds Stop: 04/18/23 18:41 Miscellaneous (Carbohydrates For Hypoglycemia ) 15 - 30 gm PO UD PRN PRN Reason: Hypoglycemia Protocol Stop: 04/16/23 14:34 Ondansetron HCl (Ondansetron Inj 2 Mg/Ml 2 Ml Vial) 4 mg IV Q6H PRN PRN Reason: Nausea Stop: 04/16/23 14:34 Polyethylene Glycol (Polyethylene (Miralax) 17 Gm Pack) 17 gm PO DAILY PRN PRN Reason: Constipation Stop: 04/16/23 14:34 Potassium Chloride (Potassium Chloride 10 Meq Tabcr) 10 meq PO QAM NABEEL Stop: 04/17/23 08:59 Last Admin: 03/22/23 09:37 Dose: 10 meq Pravastatin Sodium (Pravastatin Sod 40 Mg Tab) 40 mg PO HS NABEEL Stop: 04/16/23 20:59 Last Admin: 03/21/23 20:17 Dose: 40 mg Umeclidinium/Vilanterol (Umeclidinium/Vilanterol 62.5/25mcg 7 Puffs/Inhaler) 1 puffs INH DAILY NABEEL Stop: 04/17/23 08:59 Last Admin: 03/22/23 09:36 Dose: 1 puffs (8) Metastatic lung cancer (metastasis from lung to other site) Laterality: unspecified laterality Qualified Code(s): C34.90 - Malignant neoplasm of unspecified part of unspecified bronchus or lung
[2023-03-22] MEDS: FUROSEMIDE 20 MG TAB PO SCH (18:12)
[2023-03-22 19:21] LABS: Partial Thromboplastin Ratio 1.2; Partial Thromboplastin Time 34.5 Seconds (21.0-31.0)
[2023-03-22] MEDS: PRAVASTATIN SOD 40 MG TAB PO SCH (20:28)
[2023-03-22] MEDS ORDERED: METOPROLOL TARTRATE 1 MG/ML VIAL IV STA (23:28)
[2023-03-22] MEDS ORDERED: SODIUM CHLORIDE 0.9% 500 ML IV SCH (23:30)
[2023-03-23] MEDS ORDERED: SODIUM CHLORIDE 0.9% 500 ML IV SCH (00:30)
[2023-03-23] MEDS ORDERED: dilTIAZem HCl 5 MG/ML 5 ML VIAL IV STA ×3 (01:10→15:47)
[2023-03-23] MEDS: MAGNESIUM SULFATE / D5W 1 GM/100 ML BAG IV SCH ×2 (01:52→03:47)
[2023-03-23] MEDS ORDERED: METOPROLOL TARTRATE 25 MG TAB PO STA (02:12)
[2023-03-23 03:11] LABS: Basophils # (auto) 0.08 K/uL (0-0.2); Basophils % (auto) 0.5 %; Eosinophils # (auto) 0.44 K/uL (0-0.50); Eosinophils % (auto) 2.6 %; Hematocrit (blood only) 32.9 % (37.0-47.0); Hemoglobin 9.9 g/dl (12.0-16.0); Immature Granulocytes # (auto) 0.11 K/uL (0.01-0.20); Immature Granulocytes % (auto) 0.7 %; Lymphocytes # (auto) 0.62 K/uL (1.2-3.4); Lymphocytes % (auto) 3.7 %; Mean Corpuscular Hemoglobin 27.8 pg (25.0-34.0); Mean Corpuscular Hgb Conc 30.1 g/dL (32.0-36.0); Mean Corpuscular Volume 92.4 fL (80.0-100.0); Mean Platelet Volume 10.7 fL (9.4-12.4); Monocytes # (auto) 1.44 K/uL (0.11-0.59); Monocytes % (auto) 8.7 %; Neutrophils # (auto) 13.94 K/uL (1.40-6.50); Neutrophils % (auto) 83.8 %; Platelet Count 305 K/uL (130-400); RDW Coefficient of Variation 15.1 % (11.5-14.5); RDW Standard Deviation 51.8 fL (36.4-46.3); Red Blood Count 3.56 M/uL (4.20-5.40); White Blood Count 16.63 K/ul (4.8-10.8)
[2023-03-23 03:22] LABS: BUN Creatinine Ratio 31.3 (10-20); Calcium 8.7 mg/dl (8.6-10.3); Est GFR (African American) 118.5 ml/min; Est GFR (Non-African American) 102.2 ml/min; Potassium 3.8 mmol/L (3.5-5.1)
[2023-03-23] MEDS ORDERED: DIGOXIN 500 MCG in SYRINGE 8 ML IV ONE (03:30)
[2023-03-23 03:33] LABS: Partial Thromboplastin Ratio 1.4; Partial Thromboplastin Time 38.2 Seconds (21.0-31.0)
[2023-03-23] MEDS: LEVOTHYROXINE SODIUM 150 MCG TABLET PO SCH (05:37)
[2023-03-23] MEDS ORDERED: METOPROLOL TARTRATE 1 MG/ML VIAL IV STA (05:57)
[2023-03-23] MEDS: HEPARIN SODIUM/DEXTROSE 25,000 UNITS/500 ML BAG IV SCH ×2 (07:11→14:06)
--- NOTE | 2023-03-23 07:44 | XRay Report ---
XR chest 1V portable CLINICAL HISTORY: congestion? TECHNIQUE: Single frontal radiograph of the chest was obtained. Comparison: Comparison is made to chest radiographs 03/20/2023 FINDINGS: No lines and tubes are seen. The cardiomediastinal silhouette is obscured. Previously noted right air space opacity is minimally less prominent. Moderate right pleural effusion is unchanged. IMPRESSION: Interval stability of moderate right pleural effusion. Right airspace opacity is minimally improved. ACT 112: Negative or not required by law. Electronically signed by: Marco A Dozier M.D. 03/23/2023 7:41 AM
--- NOTE | 2023-03-23 08:25 | Pulmonology Progress Note ---
Date of Service March 23, 2023 Assessment & Plan (1) Acute and chronic respiratory failure with hypoxia: (2) Pleural effusion on right: (3) COPD (chronic obstructive pulmonary disease): COPD type: unspecified COPD Qualified Code(s): J44.9 - Chronic obstructive pulmonary disease, unspecified (4) BHAVIK on CPAP: (5) CHF (congestive heart failure): Heart failure chronicity: acute on chronic Heart failure type: unspecified Qualified Code(s): I50.9 - Heart failure, unspecified (6) Metastatic lung cancer (metastasis from lung to other site): Laterality: unspecified laterality Qualified Code(s): C34.90 - Malignant neoplasm of unspecified part of unspecified bronchus or lung Plan Impression: 67-year-old female with overlap syndrome (obstructive lung disease/sleep disordered breathing) on CPAP as well as metastatic adenocarcinoma (Mets to bone and liver). She status post Pleurx catheter placement for malignant effusion. She has not been able to remain out of the hospital long enough to initiate chemotherapy. Recommendations: 1. Sleep disordered breathing: Continue nightly CPAP. She can follow-up with the [facility] outpatient sleep physicians with whom she is established. 2. Hypoxemic respiratory failure: Diastolic dysfunction morbid obesity with hypercarbia and fluid overload with malignant pleural effusion. Would not try and target oxygen saturations much above 86 to 90% given concomitant hypercarbia. Suspect the patient would do better if her heart rate can be better controlled given her underlying diastolic dysfunction. 3. Morbid obesity: Weight loss is imperative. 4. COPD: Patient was on Symbicort Spiriva and as needed albuterol in the outpatient setting. Continue for now. She is not bronchospastic and I do not think she would benefit from additional steroids at this point time. 5. Metastatic adenocarcinoma of the lung with malignant pleural effusion: We will continue to drain the Pleurx catheter on a daily basis. 6. Hypercarbic respiratory failure: The patient's pH is controlled currently. Would not try and normalize her CO2 levels. We will continue to follow. Feel free to contact us with questions or concerns 50 minutes spent reviewing case and coordinating care Admission and Anticipated Discharge Date Admission Date: March 17, 2023 Subjective Patient seen and examined. EMR reviewed. 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 The patient is seen in the patient's room. She is currently on fullface CPAP. She is doing well clinically. She states her breathing is better. She riya nues to have issues with palpitations. No chest pain. No significant lower extremity edema. Review of Systems Review of Systems: All systems reviewed & are unremarkable except as noted in Subjective Physical Exam Constitutional: WD/WN, vitals as above + morbidly obese Neck: trachea midline, no thyromegaly Respiratory: no respiratory distress, no labored breathing and not tachypneic Auscultation: + diminished lung sounds; no crackles and no wheezes Cardiovascular: Rate/Rhythm: + tachycardic and + irregularly irregular Heart Sounds: normal S1 and normal S2 Gastrointestinal (Abdomen): normal bowel sounds, soft, nontender, no hepatosplenomegaly Musculoskeletal: Extremities: extremities normal to inspection Skin: no rashes, warm and dry Lymphatic: no cervical lymphadenopathy Results & Data Results & Data Vital Signs (Past 12 Hours) Vital Signs Temp Pulse Pulse Pulse Resp BP BP 03/23/23 07:34 37.4 C 143 H 20 03/23/23 07:32 143 H 24 03/23/23 06:47 141 H 03/23/23 06:17 140 H 98/62 L 03/23/23 06:02 142 H 100/68 03/23/23 05:50 144 H 03/23/23 05:07 143 H 03/23/23 03:05 155 H 26 H 03/23/23 03:33 163 H 03/23/23 02:53 36.7 C 162 H 19 03/23/23 02:09 150 H 03/23/23 01:32 101/69 03/23/23 01:05 150 H 03/23/23 00:50 157 H 03/22/23 23:48 142 H 127/80 03/22/23 22:10 76 03/23/23 00:23 153 H 03/22/23 23:33 156 H 126/82 03/22/23 22:56 36.8 C 76 18 126/82 03/22/23 22:15 75 03/22/23 20:26 83 BP Pulse Ox O2 Del Method O2 Flow Rate FiO2 03/23/23 07:34 103/70 92 BiPAP 85 03/23/23 07:32 95 100 03/23/23 06:47 100/68 03/23/23 06:17 03/23/23 06:02 03/23/23 05:50 100/68 03/23/23 05:07 91 High Flow Nasal Cannula 35 85 03/23/23 03:05 88 L 100 03/23/23 03:33 03/23/23 02:53 99/68 L 97 BiPAP 03/23/23 02:09 113/77 03/23/23 01:32 101/69 03/23/23 01:05 95/61 L 03/23/23 00:50 96/66 L 03/22/23 23:48 03/22/23 22:10 03/23/23 00:23 105/74 03/22/23 23:33 03/22/23 22:56 98 BiPAP 03/22/23 22:15 94 High Flow Nasal Cannula 25 75 03/22/23 20:26 104/68 Laboratory Results 03/23/23 02:53 03/23/23 02:53 Diagnostic Findings Chest x-ray from this morning shows reaccumulation of the pleural effusion on the right. PG Care Time/CCT Total # of Minutes Spent Total Time Spent with Patient: Total time spent is greater than 50% in coordination of care (as documented) at patient's floor/unit and/or counseling patient: Coding Level of Care Code 02665 SUB INP/OBS CARE 3/50MIN Diagnoses Acute and chronic respiratory failure with hypoxia J96.21 Pleural effusion on right J90 COPD (chronic obstructive pulmonary disease) J44.9 COPD type: unspecified COPD BHAVIK on CPAP G47.33; Z99.89 CHF (congestive heart failure) I50.9 Heart failure chronicity: acute on chronic Heart failure type: unspecified Metastatic lung cancer (metastasis from lung to other site) C34.90 Laterality: unspecified laterality
[2023-03-23] MEDS: EZETIMIBE 10 MG TABLET PO SCH (08:51)
[2023-03-23] MEDS: ASPIRIN 81 MG ECTAB PO SCH (08:51)
[2023-03-23] MEDS: FUROSEMIDE 40 MG TAB PO SCH (08:51)
[2023-03-23] MEDS: FLUTICASONE FUROATE 100MCG 14 PUFFS/INHALER INH SCH (08:52)
[2023-03-23] MEDS: METOPROLOL SUCC 25MG EXT REL TAB PO SCH (08:54)
[2023-03-23] MEDS: UMECLIDINIUM/VILANTEROL 62.5/25MCG 7 PUFFS/INHALER INH SCH (08:54)
[2023-03-23] MEDS: INSULIN ASPART PER UNIT CHARGE SC SCH ×3 (09:01→20:44)
[2023-03-23] MEDS: POTASSIUM CHLORIDE 10 MEQ TABCR PO SCH (10:00)
--- NOTE | 2023-03-23 10:19 | Palliative Care Consultation ---
Date of Consultation March 23, 2023 Assessment & Plan (1) Palliative care by specialist: Summer is well aware of pall med services from numerous prior admissions. (2) Advanced care planning/counseling discussion: She has continued trouble connecting frequency of readmission, recurrent effusions as sign of cancer complications. We spoke for about 35min about the nature of her illness, recurrent admissions, resp failure and continued delay in pursuing her cancer therapy due to her recurrent admissions. We spoke about the concerns medical teams have for current complication with PAF, tachy, cardizem as well as rising oxygenation needs - we spoke about how high flow cannot be given at home or in a SNF setting. She remains very resistant to SNF placement. This is unchanged from prior discussions. She does not want a family meeting at this time and states "I just want to know if I'm getting my chemo, that's what I need to know right now. When is my chemo starting so I can get better?" We spoke awhile about reasons we may not be able to safely administer cancer directed therapy with current complications as well as the need for PS to be stable before proceeding. She tells me she is "fully independent" but has needed staff assistance through her admissions and while SNF rehab has been offered in the past, she continues to refuse. She voices the same concerns as prior: dme/wants an electric wheelchair that folds bc she's on her own for some cancer clinic appointments and can't tolerate the walk from main entrance to chemo clinic as well as her ongoing financial struggles - still awaiting auth for albuterol, >10 days / cannot afford self pay. I will share this note with cancer navigator team for follow up. (3) Dyspnea and respiratory abnormalities: Summer is currently on hi flow FiO2 80% She remains tachycardic and is now on cardizem drip (4) PAF (paroxysmal atrial fibrillation): (5) 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: (6) Acute and chronic respiratory failure with hypercapnia: (7) Pleural effusion, right: (8) COPD (chronic obstructive pulmonary disease): (9) COPD (chronic obstructive pulmonary disease): COPD type: unspecified COPD Qualified Code(s): J44.9 - Chronic obstructive pulmonary disease, unspecified (10) Pulmonary hypertension: Plan Summer has continued trouble connecting frequency of readmission, recurrent effusions as sign of cancer complications. She wants to remain full code, feels this is needed to assure cancer care continues. Her information processing seems limited but does better when information is provided in succinct, simple language. Summer equates everything being done as the measures needed to receive cancer directed therapy. If she is reaching/has reached a point where cancer directed therapies may no longer be an option/offer meaningful benefit, then she wants to hear this from oncology/Dr. Redmond, before making any further decisions. She is not ready to contemplate potential scenarios of what she would do/might want if/when cancer therapy isn't an option. I have asked Dr. Torrez for input re can we give pembro dose while inpatient and in current cardioresp conditions (PAF, tachy, cardizem gtt, HFNC at 80% FiO2 now). Please note that Dr Redmond is away for 2 weeks, pt has been notified of same by me today as well. I will follow Summer peripherally. She does not have acute inpatient needs warranting a daily visit at this time and she is clear that she does not want to talk about anything other than when she will have her cancer directed therapies. She does not want to consider or engage discussions about GOC/ACP. She wants to stay full code. I am available to assist with a discussion with [facility] provider team if desired. Thank you for allowing us to participate in the ongoing care of this patient. Please don't hesitate to call or page with any additional concerns. Dr. Charisma Hartmann DNP Director, Palliative Care History of Present Illness Reason for Consultation: Goals of care Attending Physician: Vidal Elkins MD History of Present Illness Summer is well known to me from prior inpatient admissions. Met adenoca lung/mets to bone and liver with recurrent effusions with worsening oxygen needs; she's had numerous admissions for the same complicated by smoking related COPD and hypox resp failure. She remains reluctant to discuss ACP or GOC, she perceives her cancer is curable and wants 'to do everything I can to cure it.' Per admitting note: Ms. Ga is a 68 year old female with pmhx including but not limited to COPD, pulmonary hypertension, BHAVIK, lung cancer (s/p pleural catheter to drain pleural effusion every other day, started Keytruda 2.5 weeks ago), chronic respiratory failure with hypoxia and hypercapnia on 5 LPM O2 with BiPAP for sleep, CAD, carotid stenosis, chronic HFpEF, NIDDM-II (associated with HTN and HLP), hypothyroidism, and chronic alcohol use. She presented with acute onset of respiratory failure, likely due to worsening pleural effusions as well as equipment malfunction at home. Ms. Ga states she was in her usual health up through Thursday. Thursday her O2 concentrator was not working so the O2 company delivered a new one. She instructed the person who delivered it that she is on 5L. Somehow they set it at 4 LPM and she did not realize it. When she woke up Thursday morning she was ex tremely short of breath, struggling to breath. Her daughter arrived and drained the Pleurex catheter and adjusted the concentrator. Ms. Ga was feeling much better afterward. She woke up today () feeling as though she was extremely short of breath again. She denies any associated dizziness, lightheadedness, f/c/n/v, POZO, change in appetite, malaise, fatigue, weakness, CP/pressure/tightness, palpitations, abdominal pain, and dysuria. She has intermittent diarrhea at baseline since her gallbladder was removed, that remains at baseline. She has no other complaints. By the time of my exam she is feeling much better. ED Course: VS notable for: BP 166/69. HR 108, RR 33, O2 80% ORA, 89% on BiPAP. Afebrile. b/w notable for: wbc 18.5, CO2 37, Alk Phos 148. Remaining CMP, CBC unimpressive. PT INR wnl. CXR read as right pleural effusion, RLL dense opacities worse since February. Notable for vascular congestion. She was placed on BiPAP and given Furosemide. Pulm was consulted and drained her pleural catheter. BP normalized. By the time of my exam she is feeling much better Allergies Allergy/AdvReac Type Severity Reaction Status Date / Time tetracycline AdvReac Mild HEADACHE Verified 02/24/23 09:38 Home Medications Medication Instructions Recorded Confirmed Type aspirin 81 mg tablet,delayed 81 mg PO QAM 01/13/19 02/24/23 History release furosemide 40 mg tablet (Lasix) 40 mg PO QAM #30 tabs 01/16/19 03/17/23 Rx amlodipine 2.5 mg tablet 2.5 mg PO DAILY 03/18/21 03/17/23 History elderberry fruit 200 mg capsule 200 mg PO QAM ##0 03/18/21 02/24/23 History ezetimibe 10 mg tablet 10 mg PO DAILY 03/18/21 03/17/23 History metformin 500 mg tablet 500 mg PO BIDM 03/18/21 03/17/23 History levothyroxine 150 mcg tablet 150 mcg PO QAM 10/24/22 03/17/23 History turmeric 400 mg capsule 400 mg PO DAILY 10/24/22 02/24/23 History metoprolol succinate 25 mg 12.5 mg PO BID 12/02/22 03/17/23 History tablet,extended release 24 hr fluticasone fur. 100 mcg-umeclid 1 inh inhalation QAM 01/03/23 03/17/23 History 62.5 mcg-vilant 25 mcg inhalat.powder (Trelegy Ellipta) pravastatin 40 mg tablet 40 mg PO HS 01/30/23 03/17/23 History ondansetron HCl 8 mg tablet 8 mg PO Q8H PRN Nausea or Vomiting 03/17/23 03/17/23 History potassium chloride 10 mEq 10 meq PO QAM 03/17/23 03/17/23 History tablet,extended release Patient History Medical History (Updated 03/23/23 @ 11:54 by Charisma Hartmann, GALDINO) Acute and chronic respiratory failure with hypoxia 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 Alcohol use Alkalosis, metabolic CAD (coronary artery disease) NSTEMI 2008 - moderate nonobstructive disease, no stenting Carotid stenosis Chronic diastolic (congestive) heart failure Chronic respiratory failure with hypoxia Constipation COPD, group D, by GOLD 2017 classification Diabetes mellitus, type II HLD (hyperlipidemia) HTN (hypertension) Hypothyroid Malignant pleural effusion Metastatic lung cancer (metastasis from lung to other site) (12/11/22) Obesity (BMI 30.0-34.9) BHAVIK on CPAP Primary cancer of right lower lobe of lung (01/31/22) s/p radiation Pulmonary hypertension Right lower lobe pneumonia Surgical History S/P cholecystectomy Family History Mother , age 69 Heart disease Rheumatoid arthritis Osteoarthritis Father , age 69 Myocardial infarction Asthma COPD (chronic obstructive pulmonary disease) Sister , age 29 Lung disease Other Diabetes Social History Smoking Status: Former smoker Tobacco Type: Cigarettes Age Started Using Tobacco: 18; Age Quit Using Tobacco: 60; packs per day: 2; Second Hand Exposure: No; Do You Dip or Chew Tobacco: No; Hx Alcohol Use: Yes Alcohol type: beer Alcohol type Comment: 2-3 beers per week Alcohol Intake Frequency: 2-3 x/Week Hx Substance Use: No Preferred Language: Croatian Communication Ability: Effective Patent Litigation Associate Required: No Beliefs That Will Affect Care: None marital status: / Current Living Situation: Alone Current Living Situation Comment: Pt's daughters lives near by current occupational status: retired and disabled 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 [employer] How many Children do You have: 3 Feels Safe at Home: Yes caffeine: Yes (Diet pepsi - 4 cans/day) Assistive Devices: CPAP, Glasses and Oxygen - Continuous Review of Systems Review of Systems: All systems reviewed & are unremarkable except as noted in Subjective Physical Exam Constitutional: + ill appearing and + physical limitations Eyes: PERRL, conjunctivae normal, anicteric sclerae ENMT: mucosa sl dry, dentition fair, no obvious thrush Neck: trachea midline, no thyromegaly no stridor Respiratory: + labored breathing, + uses accessory muscles, + cough, + tachypneic and + tripod positioning Auscultation: + breath sounds absent (right), + diminished lung sounds (left) and + crackles (left) Cardiovascular: Rate/Rhythm: + tachycardic and + irregularly irregular Gastrointestinal (Abdomen): normal bowel sounds, soft, nontender, no hepatosplenomegaly Musculoskeletal: deconditioned Skin: + turgor decreased and + dry skin Neurologic: PERRL, EOMI, accommodation nl, no face palsy, no dysarthria Psychiatric: Affect: + anxious affect Results & Data Vital Signs (Past 12 Hours) Vital Signs Temp Pulse Pulse Pulse Resp BP BP 03/23/23 09:47 149 H 27 H 03/23/23 08:40 145 H 22 03/23/23 07:34 37.4 C 143 H 20 03/23/23 07:32 143 H 24 07/10/23 06:47 141 H 03/23/23 06:17 140 H 98/62 L 03/23/23 06:02 142 H 100/68 03/23/23 05:50 144 H 03/23/23 05:07 143 H 03/23/23 03:05 155 H 26 H 03/23/23 03:33 163 H 03/23/23 02:53 36.7 C 162 H 19 03/23/23 02:09 150 H 03/23/23 01:32 101/69 03/23/23 01:05 150 H 03/23/23 00:50 157 H 03/22/23 23:48 142 H 127/80 03/23/23 00:23 153 H 03/22/23 23:33 156 H 126/82 03/22/23 22:56 36.8 C 76 18 126/82 BP Pulse Ox O2 Del Method O2 Flow Rate FiO2 03/23/23 09:47 97 85 03/23/23 08:40 95 High Flow Nasal Cannula 35 85 03/23/23 07:34 103/70 92 BiPAP 85 03/23/23 07:32 95 100 03/23/23 06:47 100/68 03/23/23 06:17 03/23/23 06:02 03/23/23 05:50 100/68 03/23/23 05:07 91 High Flow Nasal Cannula 35 85 03/23/23 03:05 88 L 100 03/23/23 03:33 03/23/23 02:53 99/68 L 97 BiPAP 03/23/23 02:09 113/77 03/23/23 01:32 101/69 03/23/23 01:05 95/61 L 03/23/23 00:50 96/66 L 03/22/23 23:48 03/23/23 00:23 105/74 03/22/23 23:33 03/22/23 22:56 98 BiPAP Laboratory Results data reviewed Diagnostic Findings data reviewed PG Care Time/CCT Total # of Minutes Spent Total Time Spent: 90 Total Time Spent with Patient: Total time spent is greater than 50% in coordination of care (as documented) at patient's floor/unit and/or counseling patient: I spent 90 minutes overall addressing this case: 10 in medical data review/discussion with referring provider(s) and/or preparation for the visit 25 in direct interaction with the patient 35 Advance Care Planning/Goals of Care discussions as detailed above in note (must be >16min) 5 in subsequent review and synthesis of assessment and plan 15 in communicating with other providers regarding the patient's case: primary team, nursing, oncology Advanced Care Planning 02316 Advanced Care Planning 30 Min [place] [address] IN/OBS CONSULT LVL 5,80M Patient Type New History Comprehensive Exam Comprehensive Medical Decision Making High Complexity Diagnoses Palliative care by specialist Z51.5 Advanced care planning/counseling discussion Z71.89 Dyspnea and respiratory abnormalities R06.00; R06.89 PAF (paroxysmal atrial fibrillation) I48.0 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 C34.90; C78.7 Acute and chronic respiratory failure with hypercapnia J96.22 Pleural effusion, right J90 COPD (chronic obstructive pulmonary disease) J44.9 Pulmonary hypertension I27.20 Additional Codes Advanced Care Planning - 10360 Advanced Care Planning 30 Min: 43666 Advanced Care Planning 30 Min ([id number])
--- NOTE | 2023-03-23 10:33 | Cardiology Progress Note ---
Date of Service March 23, 2023 Assessment & Plan (1) Acute and chronic respiratory failure with hypoxia: (2) COPD (chronic obstructive pulmonary disease): (3) Metastatic lung cancer (metastasis from lung to other site): (4) PAF (paroxysmal atrial fibrillation): Plan Discontinue amlodipine. Initiate IV Cardizem at 5, without bolus. Supplement potassium orally. Hold oral furosemide. 20 mg IV furosemide this afternoon, reassess in AM Metoprolol tartrate 12.5 mg TID for rate control. Admission and Anticipated Discharge Date Admission Date: March 17, 2023 Supervising Physician Co-Signing Physician Notes 68-year-old female seen and examined at the bedside. Patient with multifactorial respiratory failure primarily related to underlying COPD with metastatic lung cancer and malignant pleural effusion status post Pleurx catheter placement. She remains hypoxic which is driving her atrial dysrhythmias. Borderline asymptomatic hypotension limiting treatment options at this time. Patient denies chest pain, shortness of breath, or palpitations. No lightheadedness or dizziness. PE: Tachycardic, borderline hypotensive. Heart: Regular rhythm, tachycardic, no murmur. Lungs: Diminished breath sounds bilaterally with expiratory wheezing. Extremities: No edema. A/P: Agree with above PA-C history, physical exam, assessment and plan with the following additions. Recommend dose of IV diltiazem, 15 mg. Continue IV diltiazem infusion and oral beta-mike. Consider additional dose of IV digoxin this afternoon pending clinical response. She is not a strong candidate for amiodarone with significant underlying lung pathology and hypoxia. Cardioversion unlikely to be successful in the setting of ongoing hypoxia. Pro gnosis is poor. Subjective Chart, medications, and telemetry reviewed. Admitted with acute on chronic hypoxic respiratory failure On March 17, 2023 Two days ago the patient developed atrial fibrillation with a rapid ventricular response and was started on IV heparin and spontaneously converted after receiving IV Lopressor. Resting echocardiography on March 21, 2023 demonstrated: Normal size LV and systolic function. EF 60 to 65%. Grade 1 diastolic dysfunction. No significant valvular pathology. No pericardial effusion. Mild pulmonary hy pertension. At March 22, 2023 at 22:54 the patient developed atrial flutter with rapid ventricular response. As best I can tell, the patient received 15 mg of Cardizem, IV and oral metoprolol, and 500 mcg of IV digoxin. She remains in atrial flutter at 140 to 150 bpm. Patient seen and examined. Patient sitting up at bedside, in no acute distress. She describes her breathing is fine. She denies palpitations. She denies chest pain or discomfort. Review of Systems Review of Systems: Complete ROS is as stated above, negative, or noncontributory. Physical Exam Physical Exam: General: A&Ox3. NAD. On high flow supplemental oxygen. HENT: Normocephalic. Atraumatic. Eyes: PER. Conjunctiva pink, sclera clear. Neck: No overt JVD. Heart: Distant heart sounds. RRR, 150 bpm. No murmur appreciated. Lungs: Diminished. Decreased. No wheeze. Abdomen: +BS. Soft. Nontender. No organomegaly. Extremities: 1+ chronic indurated edema. No cyanosis. Limited neurological examination is without focal deficits. Results & Data Vital Signs (Past 12 Hours) Vital Signs Temp Pulse Pulse Pulse Resp BP BP 03/23/23 09:47 149 H 27 H 03/23/23 08:40 145 H 22 03/23/23 07:34 37.4 C 143 H 20 03/23/23 07:32 143 H 24 03/23/23 06:47 141 H 03/23/23 06:17 140 H 98/62 L 03/23/23 06:02 142 H 100/68 03/23/23 05:50 144 H 03/23/23 05:07 143 H 03/23/23 03:05 155 H 26 H 03/23/23 03:33 163 H 03/23/23 02:53 36.7 C 162 H 19 03/23/23 02:09 150 H 03/23/23 01:32 101/69 03/23/23 01:05 150 H 03/23/23 00:50 157 H 03/22/23 23:48 142 H 127/80 03/23/23 00:23 153 H 03/22/23 23:33 156 H 126/82 03/22/23 22:56 36.8 C 76 18 126/82 BP Pulse Ox O2 Del Method O2 Flow Rate FiO2 03/23/23 09:47 97 85 03/23/23 08:40 95 High Flow Nasal Cannula 35 85 03/23/23 07:34 103/70 92 BiPAP 85 03/23/23 07:32 95 100 07/10/23 06:47 100/68 03/23/23 06:17 03/23/23 06:02 03/23/23 05:50 100/68 03/23/23 05:07 91 High Flow Nasal Cannula 35 85 03/23/23 03:05 88 L 100 03/23/23 03:33 03/23/23 02:53 99/68 L 97 BiPAP 03/23/23 02:09 113/77 03/23/23 01:32 101/69 03/23/23 01:05 95/61 L 03/23/23 00:50 96/66 L 03/22/23 23:48 03/23/23 00:23 105/74 03/22/23 23:33 03/22/23 22:56 98 BiPAP Laboratory Results Cardiac Enzymes 03/23/23 03/23/23 Range/Units 02:53 05:05 Troponin I High Sens 6.1 8.0 (0-14) pg/ml Coagulation 03/22/23 03/23/23 Range/Units 18:35 02:53 APTT 34.5 H 38.2 H (21.0-31.0) Seconds CBC 03/23/23 Range/Units 02:53 WBC 16.63 H (4.8-10.8) K/ul RBC 3.56 L (4.20-5.40) M/uL Hgb 9.9 L (12.0-16.0) g/dl Hct 32.9 L (37.0-47.0) % Plt Count 305 (130-400) K/uL Neut # (Auto) 13.94 H (1.40-6.50) K/uL Lymph # (Auto) 0.62 L (1.2-3.4) K/uL Rooks # (Auto) 1.44 H (0.11-0.59) K/uL Eos # (Auto) 0.44 (0-0.50) K/uL Baso # (Auto) 0.08 (0-0.2) K/uL Comprehensive Metabolic Panel 03/23/23 Range/Units 02:53 Sodium 135 L (136-145) mmol/L Potassium 3.8 (3.5-5.1) mmol/L Chloride 94 L (98-107) mmol/L Carbon Dioxide 36 H (21-32) mmol/L BUN 15 (6-23) mg/dl Creatinine 0.48 L (0.6-1.2) mg/dl Glucose 167 H (70-99(Fasting)) mg/dl Calcium 8.7 (8.6-10.3) mg/dl Intake and Output 03/22/23 03/23/23 03/23/23 22:59 06:59 14:59 Intake Total 690.117 / 2447.050 1609.433 / 2447.050 97.6 / 97.6 Output Total 450 / 650 200 / 650 300 / 300 Balance 240.117 / 3264.838 7029.433 / 1797.050 -202.4 / -202.4 Intake: IV 315.117 / 0567.415 1914.433 / 1832.050 97.6 / 97.6 Heparin Sodium/Dextrose 25,000 315.117 / 636.217 173.6 / 636.217 97.6 / 97.6 units In 500 ml @ 1,600 UNITS/ HR 32 mls/hr IV .[id number] [facility] Rx #:[id number] Magnesium Sulfate / D5w 1 gm In 195.833 / 195.833 100 ml @ 50 mls/hr IV Q2H [facility] Rx#:[id number] Sodium Chloride 0.9% 500 ml @ 1000 / 1000 500 mls/hr IV .Q1H [facility] Rx#: [id number] Oral 375 / 615 240 / 615 Output: Urine 450 / 650 200 / 650 300 / 300 Other: Weight 94.1 kg Weight Measurement Method Standing Scale (2) COPD (chronic obstructive pulmonary disease) COPD type: unspecified COPD Qualified Code(s): J44.9 - Chronic obstructive pulmonary disease, unspecified (3) Metastatic lung cancer (metastasis from lung to other site) Laterality: unspecified laterality Qualified Code(s): C34.90 - Malignant neoplasm of unspecified part of unspecified bronchus or lung
[2023-03-23] MEDS ORDERED: STAT IV Infusion **Titration per Protocol STA (10:45)
[2023-03-23] MEDS ORDERED: Nursing to Pharmacy Communication SCH ×3 (10:45→17:15)
[2023-03-23] MEDS ORDERED: POTASSIUM CHLORIDE CRTAB 20 MEQ TABCR PO ONE (10:46)
[2023-03-23 11:26] LABS: Partial Thromboplastin Ratio 1.2; Partial Thromboplastin Time 33.9 Seconds (21.0-31.0)
[2023-03-23] MEDS: dilTIAZem HCL 125 MG in DEXTROSE 5% 100 ML IV SCH ×2 (11:30→22:21)
[2023-03-23] MEDS ORDERED: HEPARIN IV BOLUS 3,000 UNITS in SYRINGE 0 ML IV ONE (11:45)
[2023-03-23] MEDS ORDERED: INSULIN ASPART PER UNIT CHARGE SC SCH (12:00)
--- NOTE | 2023-03-23 13:58 | Hospitalist Progress Note ---
Date of Service March 23, 2023 Assessment & Plan (1) Acute and chronic respiratory failure with hypoxia: Plan: presented in respiratory distress that rapidly improved with Lasix, BiPAP, and pleural cath drainage Imaging consistent with acute on chronic HFpEF and worsened pleural effusion d/t underlying lung ca Pt reports medication compliance no e/o COPD exacerbation on exam continue with supplemental O2, BiPAP for sleep and prn, Furosemide, and daily drainage of pleural cath for now (normally done at home by family members and LIE DETECTOR OPERATOR) Has been feeling much better with daily drainage from the pleural catheter Discussed with the dock operator and the drainage will be done daily as planned She has been feeling a lot better and will have PT OT evaluation Clinically not yet any better to be discharged Has been requiring more oxygen Will give an extra Lasix today We will get a repeat chest x-ray tomorrow to evaluate congestion further Seems to be not yet ready to go home and is still requiring 10 L of oxygen to maintain saturation Chest x-ray showed increasing congestion mostly on the right side with effusion Will give extra dose of 40 mg Lasix IV and continue drainage Her oral Lasix was changed to intravenously and will continue drainage of right pleural fluid as planned The numbers are looking better during writing of this note as she has been requiring less FiO2 maintain saturation Palliative care encounter Appreciate palliative input and recommendation The patient wants to try Keytruda Her compensation analyst is on vacation right now and Keytruda cannot be given in the hospital We will try to discharge patient in a few days with further improvement of her respiratory condition Condition got worse with the atrial fibrillation and more shortness of breath Chest x-ray showed more effusion on the right side otherwise clear Appreciate cardiology input and recommendation CTA did not show any pulmonary embolism We will continue with current medications as recommended including Lasix for more diuresis A-fib with RVR The patient developed atrial fibrillation with RVR last night Started with intravenous heparin and subcu Lovenox is discontinued Echo of the heart showed-normal LV size, LV systolic function is normal, EF 60 to 65%, grade 1 diastolic dysfunction, no significant valvular pathology, no pericardial effusion and mild pulmonary hypertension Rate is controlled this morning Appreciate cardiology input and recommendation Has been on beta-mike and the rate is controlled now Heart rate is controlled and is still on intravenous heparin and will go for Eliquis likely for long-term anticoagulation Received intravenous Cardizem, Lopressor and also digoxin overnight to control the heart rate Appreciate cardiology recommendation this morning to continue with the Cardizem drip and increasing the beta-mike (2) Pleural effusion on right: Plan: Metastatic lung cancer with pleural effusion continue to drain with catheter, for now increase to daily continue to treat HFpEF continue to treat lung ca, recently started Keytruda Will have drainage from the Pleurx catheter daily Catheter management will be done by sample mounter as an outpatient Will have more drainage from the right pleural effusion this morning Continue with drainage through the Pleurx catheter daily (3) Acute and chronic respiratory failure with hypercapnia: Plan: as above under acute and chronic respiratory failure with hypoxia continue BiPAP for sleep Denies any significant respiratory symptoms Patient got worse and requiring more oxygen to maintain saturation (4) Chronic diastolic (congestive) heart failure: Plan: acute on chronic diastolic CHF, + vascular congestion on imaging improved with IV Furosemide and BiPAP continue home dose of furosemide, titrate up if needed No significant fluid overload Continue the current dose of medication Received 1 dose of Lasix intravenously today with potassium supplement We will be getting more Lasix for diuresis (5) Pulmonary hypertension: Plan: continue furosemide, BiPAP (6) CAD (coronary artery disease): Plan: no complaints at this time continue BB, asa, statin therapy (7) Diabetes mellitus, type II: Plan: continue metformin, diabetic diet, hypoglycemic protocol glucose checks achs, CDI if needed (8) Metastatic lung cancer (metastasis from lung to other site): Plan: recently started Keytruda We will continue current dose of Keytruda when appropriate We will ask for palliative care consult tomorrow after discussion with the patient Keytruda has been on hold and will be restarted as soon as possible (9) COPD, group D, by GOLD 2017 classification: Plan: continue Trelegy Ellipita not currently with exacerbation Will give 1 treatment of nebulized bronchodilator (10) HTN (hypertension): Plan: continue metoprolol, furosemide (titrate up if needed) (11) Hypothyroid: Plan: continue levothyroxine no indication to check TSH at this time (12) HLD (hyperlipidemia): Plan: continue statin therapy no indication to check a lipid panel at this time Admission and Anticipated Discharge Date Admission Date: March 17, 2023 Subjective 03/18/2023 The patient was seen and examined in medical telemetry unit She has been feeling much better since admission Denies any significant shortness of breath at rest We will get PT and OT evaluation Discussed with the predictive maintenance specialist and advised to have daily drainages of fluid 03/19/2023 The patient was seen and examined in medical telemetry unit She is requiring more oxygen to maintain saturation A little shortness of breath at rest Denies any chest pain and/or palpitation 03/20/2023 The patient was seen and examined in medical telemetry unit She has been more wheezy today and is still requiring 10 L to maintain saturation Chest x-ray done and showed more congestion specially in the right lung She will have another dose of Lasix today and will not be discharged 03/21/2023 The patient was seen and examined in telemetry unit She went into atrial fibrillation with more shortness of breath last night and was transferred to telemetry unit Has been requiring more oxygen to maintain saturation Has been feeling much better this morning when I saw her Still complains to have shortness of breath with minimal exertion 03/22/2023 The patient was seen and examined in telemetry unit She has been feeling better at rest but is still requiring 80% of FiO2 with 25 L flow Denies any symptoms at rest but gets short of breath with minimal exertion Denies any chest pain and/or palpitation 03/23/2023 The patient was seen and examined in telemetry unit She has had a rough night yesterday with persistent tachycardia and received multiple medications to control the heart rate as noted Remains stable this morning without any significant symptoms specially no palpitation and no increasing shortness of breath at rest Still requiring high flow oxygen Review of Systems Review of Systems: All systems reviewed and are unremarkable except as noted below Physical Exam Physical Exam: Sitting at the side of the bed without any acute distress Constitutional: well developed, well nourished, + ill appearing and + obese Eyes: PERRL, conjunctivae normal, anicteric sclerae ENMT: external ear and nose normal, oropharynx normal Neck: trachea midline, no thyromegaly Respiratory: no respiratory distress Auscultation: + diminished lung sounds and + crackles (Minimal crackles. More on the right side at the base) Cardiovascular: Rate/Rhythm: regular rate and regular rhythm; not tachycardic Heart Sounds: normal S1 and normal S2; no murmur Extremities: no edema Gastrointestinal (Abdomen): Inspection/Auscultation: normal bowel sounds; abdomen not distended Percussion/Palpation: abdomen soft; abdomen nontender Neurologic: normal touch/pain/proprioception and moves all extremities; no focal motor deficits Psychiatric: A+Ox3, euthymic affect Lymphatic: no cervical or axillary lymphadenopathy Results & Data Results & Data Vital Signs (Past 12 Hours) Vital Signs Temp Pulse Pulse Pulse Resp BP BP 03/23/23 12:07 36.5 C 149 H 22 93/68 L 03/23/23 11:23 145 H 22 03/23/23 08:00 03/23/23 09:47 149 H 27 H 03/23/23 08:40 145 H 22 03/23/23 07:34 37.4 C 143 H 20 103/70 03/23/23 07:32 143 H 24 03/23/23 06:47 141 H 100/68 03/23/23 06:17 140 H 98/62 L 03/23/23 06:02 142 H 100/68 03/23/23 05:50 144 H 100/68 03/23/23 05:07 143 H 03/23/23 03:05 155 H 26 H 03/23/23 03:33 163 H 03/23/23 02:53 36.7 C 162 H 19 99/68 L 03/23/23 02:09 150 H 113/77 Pulse Ox O2 Del Method O2 Flow Rate FiO2 03/23/23 12:07 92 High Flow Nasal Cannula 35 7 03/23/23 11:23 93 High Flow Nasal Cannula 35 90 03/23/23 08:00 High Flow Nasal Cannula 03/23/23 09:47 97 85 03/23/23 08:40 95 High Flow Nasal Cannula 35 85 03/23/23 07:34 92 BiPAP 85 03/23/23 07:32 95 100 03/23/23 06:47 03/23/23 06:17 03/23/23 06:02 03/23/23 05:50 03/23/23 05:07 91 High Flow Nasal Cannula 35 85 03/23/23 03:05 88 L 100 03/23/23 03:33 03/23/23 02:53 97 BiPAP 03/23/23 02:09 Laboratory Results Short CBC 03/23/23 Range/Units 02:53 WBC 16.63 H (4.8-10.8) K/ul Hgb 9.9 L (12.0-16.0) g/dl Hct 32.9 L (37.0-47.0) % Plt Count 305 (130-400) K/uL BMP 03/23/23 02:53 Sodium 135 L Potassium 3.8 Chloride 94 L Carbon Dioxide 36 H BUN 15 Creatinine 0.48 L Glucose 167 H Calcium 8.7 Medications Administered Current Inpatient Medications Acetaminophen (Acetaminophen 325 Mg Tab) 650 mg PO Q4H PRN PRN Reason: pain/fever Stop: 04/16/23 14:34 Last Admin: 03/22/23 21:32 Dose: 650 mg Aspirin (Aspirin 81 Mg Ectab) 81 mg PO DAILY [facility] Stop: 04/17/23 08:59 Last Admin: 03/23/23 08:51 Dose: 81 mg Dextrose (Dextrose 50% 50 Ml Syringe) 25 - 50 ml IV UD PRN; Protocol PRN Reason: Hypoglycemia Protocol Stop: 04/16/23 14:34 Ezetimibe (Ezetimibe 10 Mg Tablet) 10 mg PO DAILY N[facility] Stop: 04/17/23 08:59 Last Admin: 03/23/23 08:51 Dose: 10 mg Fluticasone Furoate (Fluticasone Furoate 100mcg 14 Puffs/Inhaler) 1 puffs INH DAILY [facility] Stop: 04/17/23 08:59 Last Admin: 03/23/23 08:52 Dose: 1 puffs Furosemide (Furosemide 40 Mg Tab) 40 mg PO QAM [facility] Stop: 04/17/23 08:59 Last Admin: 03/23/23 08:51 Dose: 40 mg Furosemide (Furosemide 20 Mg Tab) 20 mg PO DAILY@1700 [facility] Stop: 04/16/23 18:14 Last Admin: 03/22/23 18:12 Dose: 20 mg Furosemide (Furosemide Inj 20 Mg/2 Ml Vial) 20 mg IV ONE ONE Stop: 03/23/23 15:01 Glucagon (Glucagon For Inj 1 Mg Vial) 1 mg SQ UD PRN; Protocol PRN Reason: Hypoglycemia Protocol Stop: 04/16/23 14:34 Glucose (Glucose 10 Tab/Tube) 4 - 8 tab PO UD PRN; Protocol PRN Reason: Hypoglycemia Treatment Stop: 04/16/23 14:34 Glucose (Glucose 40% Gel 15 Gm Tube) 15 - 30 gm PO UD PRN; Protocol PRN Reason: Hypoglycemia Protocol Stop: 04/16/23 14:34 Heparin Sodium/Dextrose (Heparin Sodium/Dextrose) 25,000 units in 500 mls @ 35 mls/hr IV .[id number] [facility]; Protocol Stop: 04/20/23 02:49 Last Titration: 03/23/23 12:10 Dose: 1,750 units/hr, 35 mls/hr Diltiazem HCl 125 mg/ Dextrose 125 mls @ 7.5 mls/hr IV .[id number] [facility]; Protocol Stop: 04/22/23 10:44 Last Titration: 03/23/23 13:18 Dose: 7.5 mg/hr, 7.5 mls/hr Insulin Aspart (Insulin Aspart Per Unit Charge) 0 units SC Q6 [facility] Stop: 04/20/23 07:29 Last Admin: 03/23/23 12:01 Dose: Not Given Levothyroxine Sodium (Levothyroxine Sodium 150 Mcg Tablet) 150 mcg PO DAILYBB [facility] Stop: 04/17/23 06:29 Last Admin: 03/23/23 05:37 Dose: 150 mcg Magnesium Hydroxide (Magnesium Hydroxide Susp 30 Ml Udc) 30 ml PO Q6H PRN PRN Reason: Constipation Stop: 04/16/23 14:34 Metoprolol Tartrate (Metoprolol Tartrate 1 Mg/Ml Vial) 5 mg IV Q6 PRN PRN Reason: Tachycardia Stop: 04/20/23 02:49 Metoprolol Tartrate (Metoprolol Tartrate 25 Mg Tab) 12.5 mg PO TID [facility] Stop: 04/22/23 13:59 Miconazole Nitrate (Miconazole Nitrate Powder 85 Gm) 1 appln EXT BID PRN PRN Reason: Affected Skin Folds Stop: 04/18/23 18:41 Miscellaneous (Carbohydrates For Hypoglycemia ) 15 - 30 gm PO UD PRN PRN Reason: Hypoglycemia Protocol Stop: 04/16/23 14:34 Ondansetron HCl (Ondansetron Inj 2 Mg/Ml 2 Ml Vial) 4 mg IV Q6H PRN PRN Reason: Nausea Stop: 04/16/23 14:34 Polyethylene Glycol (Polyethylene (Miralax) 17 Gm Pack) 17 gm PO DAILY PRN PRN Reason: Constipation Stop: 04/16/23 14:34 Potassium Chloride (Potassium Chloride 10 Meq Tabcr) 10 meq PO QAM [facility] Stop: 04/17/23 08:59 Last Admin: 03/23/23 10:00 Dose: 10 meq Pravastatin Sodium (Pravastatin Sod 40 Mg Tab) 40 mg PO HS [facility] Stop: 04/16/23 20:59 Last Admin: 03/22/23 20:28 Dose: 40 mg Umeclidinium/Vilanterol (Umeclidinium/Vilanterol 62.5/25mcg 7 Puffs/Inhaler) 1 puffs INH DAILY [facility] Stop: 04/17/23 08:59 Last Admin: 03/23/23 08:54 Dose: 1 puffs (8) Metastatic lung cancer (metastasis from lung to other site) Laterality: unspecified laterality Qualified Code(s): C34.90 - Malignant neoplasm of unspecified part of unspecified bronchus or lung
[2023-03-23] MEDS: METOPROLOL TARTRATE 25 MG TAB PO SCH ×2 (14:17→21:11)
[2023-03-23] MEDS ORDERED: FUROSEMIDE INJ 20 MG/2 ML VIAL IV ONE (15:00)
[2023-03-23] MEDS: ACETAMINOPHEN 325 MG TAB PO PRN (17:22)
[2023-03-23] MEDS ORDERED: DIGOXIN 250 MCG in SYRINGE 9 ML IV STA (18:08)
--- NOTE | 2023-03-23 18:11 | Electrocardiogram Report ---
Test Reason : Blood Pressure : / mmHG Vent. Rate : 150 BPM Atrial Rate : 150 BPM P-R Int : 126 ms QRS Dur : 080 ms QT Int : 260 ms P-R-T Axes : 071 058 226 degrees QTc Int : 410 ms Sinus tachycardia vs atrial flutter Abnormal ECG When compared with ECG of 21-MAR-2023 02:06, Sinus rhythm has replaced Atrial fibrillation Confirmed by Tushar Munoz ([id number] on 03/23/2023 6:11:21 PM Referred By: REFERRED SELF Confirmed By:Vinicio Munoz
--- NOTE | 2023-03-23 18:12 | Electrocardiogram Report ---
Test Reason : Blood Pressure : / mmHG Vent. Rate : 154 BPM Atrial Rate : 098 BPM P-R Int : 000 ms QRS Dur : 076 ms QT Int : 332 ms P-R-T Axes : 000 032 212 degrees QTc Int : 531 ms Atrial fibrillation Abnormal ECG When compared with ECG of 22-MAR-2023 23:23, (unconfirmed) ST no longer depressed in Inferior leads T wave inversion less evident in Anterolateral leads Confirmed by Tushar Munoz ([id number] on 03/23/2023 6:11:56 PM Referred By: REFERRED SELF Confirmed By:Vinicio Munoz
[2023-03-23 19:39] LABS: Partial Thromboplastin Ratio 1.5
[2023-03-23] MEDS: PRAVASTATIN SOD 40 MG TAB PO SCH (21:11)
[2023-03-24] MEDS: HEPARIN SODIUM/DEXTROSE 25,000 UNITS/500 ML BAG IV SCH ×3 (03:02→13:50)
[2023-03-24] MEDS: ACETAMINOPHEN 325 MG TAB PO PRN ×3 (03:49→21:52)
[2023-03-24 04:25] LABS: Basophils # (auto) 0.06 K/uL (0-0.2); Basophils % (auto) 0.4 %; Eosinophils # (auto) 0.53 K/uL (0-0.50); Eosinophils % (auto) 3.9 %; Hematocrit (blood only) 31.9 % (37.0-47.0); Hemoglobin 9.7 g/dl (12.0-16.0); Immature Granulocytes % (auto) 0.7 %; Lymphocytes # (auto) 0.83 K/uL (1.2-3.4); Lymphocytes % (auto) 6.1 %; Mean Corpuscular Hemoglobin 27.7 pg (25.0-34.0); Mean Corpuscular Hgb Conc 30.4 g/dL (32.0-36.0); Mean Corpuscular Volume 91.1 fL (80.0-100.0); Mean Platelet Volume 10.9 fL (9.4-12.4); Monocytes # (auto) 1.31 K/uL (0.11-0.59); Monocytes % (auto) 9.7 %; Neutrophils # (auto) 10.67 K/uL (1.40-6.50); Neutrophils % (auto) 79.2 %; Platelet Count 318 K/uL (130-400); RDW Coefficient of Variation 15.4 % (11.5-14.5); RDW Standard Deviation 51.6 fL (36.4-46.3)
[2023-03-24 04:32] LABS: BUN Creatinine Ratio 30.9 (10-20); Calcium 8.8 mg/dl (8.6-10.3); Creatinine Clr Calc Pharmacy 105.3 ml/min; Est GFR (African American) 113.3 ml/min; Est GFR (Non-African American) 97.7 ml/min; Magnesium 2.1 mg/dl (1.7-2.4)
[2023-03-24 04:56] LABS: Partial Thromboplastin Ratio 1.4; Partial Thromboplastin Time 39.3 Seconds (21.0-31.0)
[2023-03-24] MEDS: LEVOTHYROXINE SODIUM 150 MCG TABLET PO SCH (05:05)
--- NOTE | 2023-03-24 08:00 | Pulmonology Progress Note ---
Date of Service March 24, 2023 Assessment & Plan (1) Acute and chronic respiratory failure with hypoxia: (2) Pleural effusion on right: (3) COPD (chronic obstructive pulmonary disease): COPD type: unspecified COPD Qualified Code(s): J44.9 - Chronic obstructive pulmonary disease, unspecified (4) BHAVIK on CPAP: (5) CHF (congestive heart failure): Heart failure chronicity: acute on chronic Heart failure type: unspecified Qualified Code(s): I50.9 - Heart failure, unspecified (6) Metastatic lung cancer (metastasis from lung to other site): Laterality: unspecified laterality Qualified Code(s): C34.90 - Malignant neoplasm of unspecified part of unspecified bronchus or lung Plan Impression: 67-year-old female with overlap syndrome (obstructive lung disease/sleep disordered breathing) on CPAP as well as metastatic adenocarcinoma (Mets to bone and liver). She status post Pleurx catheter placement for malignant effusion. She has not been able to remain out of the hospital long enough to initiate chemotherapy. Recommendations: 1. Sleep disordered breathing: Continue nightly CPAP. She can follow-up with the [facility] outpatient sleep physicians with whom she is established. 2. Hypoxemic respiratory failure: Diastolic dysfunction morbid obesity with hypercarbia and fluid overload with malignant pleural effusion. Would not try and target oxygen saturations much above 86 to 90% given concomitant hypercarbia. Would favor continued diuretics however these have been held by cardiology so will defer additional diuresis to them. 3. Morbid obesity: Weight loss is imperative. 4. COPD: Patient was on Symbicort Spiriva and as needed albuterol in the outpatient setting. Continue for now. She is not bronchospastic and I do not think she would benefit from additional steroids at this point time. 5. Metastatic adenocarcinoma of the lung with malignant pleural effusion: Catheter was drained yesterday. We will repeat chest x-ray tomorrow to reassess. Her CT scan shows persistent consolidation in the lower lobe with significant shunt physiology which is unlikely to improve. I suspect this is related to the patient's underlying malignancy. In addition she now has increased interstitial markings which may represent lymphangitic spread of tumor. The patient is at risk for tumor emboli syndrome which ultimately is treatable only with chemotherapy. I am not convinced the patient's oxygenation will improve without treatment of her malignancy and her current performance status may limit the ability to administer systemic chemotherapy. Radiation therapy would not be an option for this patient. Patient is met with palliative care but apparently is not willing to engage on overall poor prognosis. Unfortunately I am not sure that this may have a favorable outcome as the patient's shunt physiology may be refractory to medical therapy. We will continue to address with the patient 6. Hypercarbic respiratory failure: The patient's pH is controlled currently. Would not try and normalize her CO2 levels. We will continue to follow. Feel free to contact us with questions or concerns Admission and Anticipated Discharge Date Admission Date: March 17, 2023 Subjective Patient seen and examined. EMR reviewed. The patient is sitting up at bedside. She has been transitioned off of positive airway pressure to high flow. Her oxygen requirement is weaning somewhat. Her Pleurx was drained yesterday and she felt relief. She is coughing a minimal amount and not expectorating any phlegm. Her arrhythmia apparently broke. She felt flushed when this happened. She now appears to be in sinus. Review of Systems Review of Systems: All systems reviewed & are unremarkable except as noted in Subjective Physical Exam Constitutional: WD/WN, vitals as above + morbidly obese Neck: trachea midline, no thyromegaly Respiratory: no respiratory distress, no labored breathing and not tachypneic Auscultation: + diminished lung sounds; no crackles and no wheezes Cardiovascular: Heart Sounds: normal S1 and normal S2 Gastrointestinal (Abdomen): normal bowel sounds, soft, nontender, no hepatosplenomegaly Musculoskeletal: Extremities: extremities normal to inspection Skin: no rashes, warm and dry Lymphatic: no cervical lymphadenopathy Results & Data Results & Data Vital Signs (Past 12 Hours) Vital Signs Temp Pulse Pulse Pulse Resp BP BP 03/24/23 07:00 68 20 03/24/23 04:34 117 H 22 97/50 L 03/24/23 03:30 87 22 91/64 L 03/24/23 02:35 78 90/63 L 03/24/23 02:36 88 20 03/24/23 01:32 85 97/62 L 03/24/23 01:21 74 03/24/23 00:40 87 93/63 L 03/23/23 23:35 36.4 C L 86 24 100/67 03/23/23 22:44 03/23/23 22:28 24 03/23/23 20:10 100 H 99/62 L 03/23/23 22:35 78 95/63 L 03/23/23 21:09 92 H 102/71 Pulse Ox O2 Del Method O2 Flow Rate FiO2 03/24/23 07:00 94 High Flow Nasal Cannula 30 60 03/24/23 04:34 93 High Flow Nasal Cannula 35 73 03/24/23 03:30 92 CPAP 03/24/23 02:35 03/24/23 02:36 90 100 03/24/23 01:32 03/24/23 01:21 03/24/23 00:40 03/23/23 23:35 92 CPAP 03/23/23 22:44 BiPAP, High Flow Nasal Cannula 03/23/23 22:28 100 03/23/23 20:10 03/23/23 22:35 03/23/23 21:09 Laboratory Results 03/24/23 03:40 03/24/23 03:40 Diagnostic Findings No new films PG Care Time/CCT Total # of Minutes Spent Total Time Spent with Patient: Total time spent is greater than 50% in coordination of care (as documented) at patient's floor/unit and/or counseling patient: Coding Level of Care Code 15486 SUB INP/OBS CARE 2/35MIN Diagnoses Acute and chronic respiratory failure with hypoxia J96.21 Pleural effusion on right J90 COPD (chronic obstructive pulmonary disease) J44.9 COPD type: unspecified COPD BHAVIK on CPAP G47.33; Z99.89 CHF (congestive heart failure) I50.9 Heart failure chronicity: acute on chronic Heart failure type: unspecified Metastatic lung cancer (metastasis from lung to other site) C34.90 Laterality: unspecified laterality
[2023-03-24] MEDS: EZETIMIBE 10 MG TABLET PO SCH (09:11)
[2023-03-24] MEDS: FLUTICASONE FUROATE 100MCG 14 PUFFS/INHALER INH SCH (09:11)
[2023-03-24] MEDS: INSULIN ASPART PER UNIT CHARGE SC SCH ×4 (09:11→20:31)
[2023-03-24] MEDS: ASPIRIN 81 MG ECTAB PO SCH (09:11)
[2023-03-24] MEDS: UMECLIDINIUM/VILANTEROL 62.5/25MCG 7 PUFFS/INHALER INH SCH (09:12)
[2023-03-24] MEDS: POTASSIUM CHLORIDE 10 MEQ TABCR PO SCH (09:14)
--- NOTE | 2023-03-24 11:16 | Cardiology Progress Note ---
Date of Service March 24, 2023 Assessment & Plan (1) Acute and chronic respiratory failure with hypoxia: (2) COPD (chronic obstructive pulmonary disease): (3) Metastatic lung cancer (metastasis from lung to other site): (4) PAF (paroxysmal atrial fibrillation): (5) Heart failure, diastolic, with acute decompensation: Plan IV furosemide today along with additional oral potassium supplementation. Continue metoprolol tartrate as prescribed. Admission and Anticipated Discharge Date Admission Date: March 17, 2023 Supervising Physician Co-Signing Physician Notes 68-year-old female seen and examined at the bedside. Converted to sinus rhythm overnight. Postconversion pause noted. Remains in sinus rhythm this morning. Received additional IV digoxin, 250 mcg last evening in addition to IV diltiazem, 15 mg. Feeling better today. Denies palpitations. Dyspnea unchanged. Bilateral lower extremity edema noted. PE: VSS. Heart: Regular rhythm, normal S1, S2. No murmur. Lungs: Diminished breath sounds bilaterally with expiratory wheezing. Extremities: No edema. A/P: Agree with above PA-C history, physical exam, assessment and plan with the following additions. Continue metoprolol tartrate 12.5 mg 3 times daily. IV diltiazem discontinued. Continue telemetry monitoring. Subjective Patient seen and examined just after completing therapy. Chart, medications, and telemetry reviewed. Status post spontaneous conversion from atrial flutter to sinus rhythm with a symptomatic 4.3-second conversion pause at 4:47:52 on 03/24/2023. Feeling OK, not significantly different despite improvement in heart rates. Denies chest pain or palpitations. + Peripheral edema. No dizziness or near syncope Oral furosemide held yesterday, receiving low-dose (20 mg) IV furosemide administered yesterday afternoon without difficulty. Review of Systems Review of Systems: Complete ROS is as stated above, negative, or noncontributory. Physical Exam Physical Exam: General: A&Ox3. NAD. HENT: Normocephalic. Atraumatic. Eyes: PER. Conjunctiva pink, sclera clear. Neck: No overt JVD. Heart: Distant heart sounds. Regular at 70 bpm. No murmur appreciated. Lungs: Diminished. Decreased. Right basilar rales. No wheeze. Abdomen: +BS. Soft. Nontender. No organomegaly. Extremities: 1+ chronic indurated edema. No cyanosis. Limited neurological examination is without focal deficits. Results & Data Vital Signs (Past 12 Hours) Vital Signs Temp Pulse Pulse Pulse Resp BP Pulse Ox 03/24/23 10:58 03/24/23 08:13 36.6 C 68 22 99/64 L 92 03/24/23 07:00 68 20 94 03/24/23 04:34 117 H 22 97/50 L 93 03/24/23 03:30 87 22 91/64 L 92 03/24/23 02:35 78 90/63 L 03/24/23 02:36 88 20 90 03/24/23 01:32 85 97/62 L 03/24/23 01:21 74 03/24/23 00:40 87 93/63 L 03/23/23 23:35 36.4 C L 86 24 100/67 92 O2 Del Method O2 Flow Rate FiO2 03/24/23 10:58 Room Air 03/24/23 08:13 High Flow Nasal Cannula 03/24/23 07:00 High Flow Nasal Cannula 30 60 03/24/23 04:34 High Flow Nasal Cannula 35 73 03/24/23 03:30 CPAP 03/24/23 02:35 03/24/23 02:36 100 03/24/23 01:32 03/24/23 01:21 03/24/23 00:40 03/23/23 23:35 CPAP Laboratory Results Coagulation 03/23/23 03/23/23 03/24/23 Range/Units 10:22 18:39 03:40 APTT 33.9 H 41.0 H* 39.3 H (21.0-31.0) Seconds CBC 03/24/23 Range/Units 03:40 WBC 13.50 H (4.8-10.8) K/ul RBC 3.50 L (4.20-5.40) M/uL Hgb 9.7 L (12.0-16.0) g/dl Hct 31.9 L (37.0-47.0) % Plt Count 318 (130-400) K/uL Neut # (Auto) 10.67 H (1.40-6.50) K/uL Lymph # (Auto) 0.83 L (1.2-3.4) K/uL [place] # (Auto) 1.31 H (0.11-0.59) K/uL Eos # (Auto) 0.53 H (0-0.50) K/uL Baso # (Auto) 0.06 (0-0.2) K/uL Comprehensive Metabolic Panel 03/24/23 Range/Units 03:40 Sodium 135 L (136-145) mmol/L Potassium 4.0 (3.5-5.1) mmol/L Chloride 92 L (98-107) mmol/L Carbon Dioxide 37 H (21-32) mmol/L BUN 17 (6-23) mg/dl Creatinine 0.55 L (0.6-1.2) mg/dl Glucose 130 H (70-99(Fasting)) mg/dl Calcium 8.8 (8.6-10.3) mg/dl Intake and Output 03/23/23 03/24/23 03/24/23 22:59 06:59 14:59 Intake Total 292.584 / 1563.343 937.025 / 1563.343 0 / 0 Balance 292.584 / 163.343 937.025 / 163.343 0 / 0 Intake: IV 292.584 / 1103.343 477.025 / 1103.343 0 / 0 Heparin Sodium/Dextrose 25,000 199.500 / 917.384 393.150 / 917.384 units In 500 ml @ 1,800 UNITS/ HR 36 mls/hr IV .[id number] [facility] Rx #:[id number] dilTIAZem HCL 125 mg In 93.084 / 185.959 83.875 / 185.959 0 / 0 Dextrose 5% 100 ml @ 12.5 MG/HR 12.5 mls/hr IV .Q10H NABEEL Rx#: [id number] Oral 460 / 460 Other: Weight 94.8 kg Weight Measurement Method Standing Scale (2) COPD (chronic obstructive pulmonary disease) COPD type: unspecified COPD Qualified Code(s): J44.9 - Chronic obstructive pulmonary disease, unspecified (3) Metastatic lung cancer (metastasis from lung to other site) Laterality: unspecified laterality Qualified Code(s): C34.90 - Malignant neoplasm of unspecified part of unspecified bronchus or lung
[2023-03-24] MEDS ORDERED: FUROSEMIDE 40 MG/4 ML VIAL IV ONE (11:20)
[2023-03-24] MEDS ORDERED: POTASSIUM CHLORIDE CRTAB 20 MEQ TABCR PO ONE (11:21)
[2023-03-24] MEDS: METOPROLOL TARTRATE 25 MG TAB PO SCH ×3 (12:17→20:33)
[2023-03-24 12:27] LABS: Partial Thromboplastin Ratio 1.2; Partial Thromboplastin Time 34.8 Seconds (21.0-31.0)
[2023-03-24] MEDS: APIXABAN 5 MG TABLET PO SCH ×2 (12:28→20:33)
--- NOTE | 2023-03-24 16:20 | Hospitalist Progress Note ---
Date of Service March 24, 2023 Assessment & Plan (1) Acute and chronic respiratory failure with hypoxia: Plan: presented in respiratory distress that rapidly improved with Lasix, BiPAP, and pleural cath drainage Imaging consistent with acute on chronic HFpEF and worsened pleural effusion d/t underlying lung ca Pt reports medication compliance no e/o COPD exacerbation on exam continue with supplemental O2, BiPAP for sleep and prn, Furosemide, and daily drainage of pleural cath for now (normally done at home by family members and MOBILE DEVICE ENGINEER) Has been feeling much better with daily drainage from the pleural catheter Discussed with the laser printing operator and the drainage will be done daily as planned She has been feeling a lot better and will have PT OT evaluation Clinically not yet any better to be discharged Has been requiring more oxygen Will give an extra Lasix today We will get a repeat chest x-ray tomorrow to evaluate congestion further Seems to be not yet ready to go home and is still requiring 10 L of oxygen to maintain saturation Chest x-ray showed increasing congestion mostly on the right side with effusion Will give extra dose of 40 mg Lasix IV and continue drainage Her oral Lasix was changed to intravenously and will continue drainage of right pleural fluid as planned The numbers are looking better during writing of this note as she has been requiring less FiO2 maintain saturation Symptomatically improved but still requiring very high flow oxygen especially with ambulation Likely not to improve further as long as her cancer is improved We will continue to give more Lasix today for bilateral leg edema and fluid overload as per keymodule assembly machine tender Palliative care encounter Appreciate palliative input and recommendation The patient wants to try Keytruda Her cotton picker is on vacation right now and Keytruda cannot be given in the hospital We will try to discharge patient in a few days with further improvement of her respiratory condition Not yet ready for comfort measures or hospice care Condition got worse with the atrial fibrillation and more shortness of breath Chest x-ray showed more effusion on the right side otherwise clear Appreciate cardiology input and recommendation CTA did not show any pulmonary embolism We will continue with current medications as recommended including Lasix for more diuresis A-fib with RVR The patient developed atrial fibrillation with RVR last night Started with intravenous heparin and subcu Lovenox is discontinued Echo of the heart showed-normal LV size, LV systolic function is normal, EF 60 to 65%, grade 1 diastolic dysfunction, no significant valvular pathology, no pericardial effusion and mild pulmonary hypertension Rate is controlled this morning Appreciate cardiology input and recommendation Has been on beta-mike and the rate is controlled now Heart rate is controlled and is still on intravenous heparin and will go for Eliquis likely for long-term anticoagulation Received intravenous Cardizem, Lopressor and also digoxin overnight to control the heart rate Appreciate cardiology recommendation this morning to continue with the Cardizem drip and increasing the beta-mike Off Cardizem drip-heart rate is controlled Heparin discontinued and Eliquis added (2) Pleural effusion on right: Plan: Metastatic lung cancer with pleural effusion continue to drain with catheter, for now increase to daily continue to treat HFpEF continue to treat lung ca, recently started Keytruda Will have drainage from the Pleurx catheter daily Catheter management will be done by auto bumper straightener as an outpatient Will have more drainage from the right pleural effusion this morning Continue with drainage through the Pleurx catheter daily (3) Acute and chronic respiratory failure with hypercapnia: Plan: as above under acute and chronic respiratory failure with hypoxia continue BiPAP for sleep Denies any significant respiratory symptoms Patient got worse and requiring more oxygen to maintain saturation (4) Chronic diastolic (congestive) heart failure: Plan: acute on chronic diastolic CHF, + vascular congestion on imaging improved with IV Furosemide and BiPAP continue home dose of furosemide, titrate up if needed No significant fluid overload Continue the current dose of medication Received 1 dose of Lasix intravenously today with potassium supplement We will be getting more Lasix for diuresis (5) Pulmonary hypertension: Plan: continue furosemide, BiPAP (6) CAD (coronary artery disease): Plan: no complaints at this time continue BB, asa, statin therapy (7) Diabetes mellitus, type II: Plan: continue metformin, diabetic diet, hypoglycemic protocol glucose checks achs, CDI if needed (8) Metastatic lung cancer (metastasis from lung to other site): Plan: recently started Keytruda We will continue current dose of Keytruda when appropriate We will ask for palliative care consult tomorrow after discussion with the patient Keytruda has been on hold and will be restarted as soon as possible (9) COPD, group D, by GOLD 2017 classification: Plan: continue Trelegy Ellipita not currently with exacerbation Will give 1 treatment of nebulized bronchodilator (10) HTN (hypertension): Plan: continue metoprolol, furosemide (titrate up if needed) (11) Hypothyroid: Plan: continue levothyroxine no indication to check TSH at this time (12) HLD (hyperlipidemia): Plan: continue statin therapy no indication to check a lipid panel at this time Admission and Anticipated Discharge Date Admission Date: March 17, 2023 Subjective 03/18/2023 The patient was seen and examined in medical telemetry unit She has been feeling much better since admission Denies any significant shortness of breath at rest We will get PT and OT evaluation Discussed with the digital product specialist and advised to have daily drainages of fluid 03/19/2023 The patient was seen and examined in medical telemetry unit She is requiring more oxygen to maintain saturation A little shortness of breath at rest Denies any chest pain and/or palpitation 03/20/2023 The patient was seen and examined in medical telemetry unit She has been more wheezy today and is still requiring 10 L to maintain saturation Chest x-ray done and showed more congestion specially in the right lung She will have another dose of Lasix today and will not be discharged 03/21/2023 The patient was seen and examined in telemetry unit She went into atrial fibrillation with more shortness of breath last night and was transferred to telemetry unit Has been requiring more oxygen to maintain saturation Has been feeling much better this morning when I saw her Still complains to have shortness of breath with minimal exertion 03/22/2023 The patient was seen and examined in telemetry unit She has been feeling better at rest but is still requiring 80% of FiO2 with 25 L flow Denies any symptoms at rest but gets short of breath with minimal exertion Denies any chest pain and/or palpitation 03/23/2023 The patient was seen and examined in telemetry unit She has had a rough night yesterday with persistent tachycardia and received multiple medications to control the heart rate as noted Remains stable this morning without any significant symptoms specially no palpitation and no increasing shortness of breath at rest Still requiring high flow oxygen 03/24/2023 The patient was seen and examined in telemetry unit She has had bradycardia last night and Cardizem drip was stopped Reverted to sinus rhythm and denies any cardiac symptoms No significant shortness of breath at rest but is still requiring high flow oxygen Review of Systems Review of Systems: All systems reviewed and are unremarkable except as noted below Physical Exam Physical Exam: Sitting at the side of the bed without any acute distress Constitutional: well developed, well nourished, + ill appearing and + obese Eyes: PERRL, conjunctivae normal, anicteric sclerae ENMT: external ear and nose normal, oropharynx normal Neck: trachea midline, no thyromegaly Respiratory: no respiratory distress Auscultation: + diminished lung sounds and + crackles (Minimal crackles. More on the right side at the base) Cardiovascular: Rate/Rhythm: regular rate and regular rhythm; not tachycardic Heart Sounds: normal S1 and normal S2; no murmur Extremities: + edema (1+ bilaterally) Gastrointestinal (Abdomen): Inspection/Auscultation: normal bowel sounds; abdomen not distended Percussion/Palpation: abdomen soft; abdomen nontender Musculoskeletal: No acute arthritis involving any of the joint Neurologic: normal touch/pain/proprioception and moves all extremities; no focal motor deficits Psychiatric: A+Ox3, euthymic affect Lymphatic: no cervical or axillary lymphadenopathy Results & Data Results & Data Vital Signs (Past 12 Hours) Vital Signs Temp Pulse Pulse Pulse Resp BP Pulse Ox 03/24/23 16:06 36.5 C 63 24 99/65 L 95 03/24/23 15:46 100 H 18 90 03/24/23 12:24 80 22 90 03/24/23 12:04 71 03/24/23 11:22 36.4 C L 68 22 103/67 95 03/24/23 10:58 03/24/23 08:13 36.6 C 68 22 99/64 L 92 03/24/23 07:00 68 20 94 03/24/23 04:34 117 H 22 97/50 L 93 O2 Del Method O2 Flow Rate FiO2 03/24/23 16:06 High Flow Nasal Cannula 03/24/23 15:46 High Flow Nasal Cannula 35 65 03/24/23 12:24 High Flow Nasal Cannula 35 65 03/24/23 12:04 03/24/23 11:22 BiPAP 03/24/23 10:58 Room Air 03/24/23 08:13 High Flow Nasal Cannula 03/24/23 07:00 High Flow Nasal Cannula 30 60 03/24/23 04:34 High Flow Nasal Cannula 35 73 Laboratory Results Short CBC 03/24/23 Range/Units 03:40 WBC 13.50 H (4.8-10.8) K/ul Hgb 9.7 L (12.0-16.0) g/dl Hct 31.9 L (37.0-47.0) % Plt Count 318 (130-400) K/uL BMP 03/24/23 03:40 Sodium 135 L Potassium 4.0 Chloride 92 L Carbon Dioxide 37 H BUN 17 Creatinine 0.55 L Glucose 130 H Calcium 8.8 Medications Administered Current Inpatient Medications Acetaminophen (Acetaminophen 325 Mg Tab) 650 mg PO Q4H PRN PRN Reason: pain/fever Stop: 04/16/23 14:34 Last Admin: 03/24/23 12:28 Dose: 650 mg Apixaban (Apixaban 5 Mg Tablet) 5 mg PO BID NABEEL Stop: 04/23/23 11:59 Last Admin: 03/24/23 12:28 Dose: 5 mg Aspirin (Aspirin 81 Mg Ectab) 81 mg PO DAILY NABEEL Stop: 04/17/23 08:59 Last Admin: 03/24/23 09:11 Dose: 81 mg Dextrose (Dextrose 50% 50 Ml Syringe) 25 - 50 ml IV UD PRN; Protocol PRN Reason: Hypoglycemia Protocol Stop: 04/16/23 14:34 Ezetimibe (Ezetimibe 10 Mg Tablet) 10 mg PO DAILY NABEEL Stop: 04/17/23 08:59 Last Admin: 03/24/23 09:11 Dose: 10 mg Fluticasone Furoate (Fluticasone Furoate 100mcg 14 Puffs/Inhaler) 1 puffs INH DAILY NABEEL Stop: 04/17/23 08:59 Last Admin: 03/24/23 09:11 Dose: 1 puffs Furosemide (Furosemide 40 Mg Tab) 40 mg PO QAM NABEEL Stop: 04/17/23 08:59 Last Admin: 03/23/23 08:51 Dose: 40 mg Furosemide (Furosemide 20 Mg Tab) 20 mg PO DAILY@1700 [facility] Stop: 04/16/23 18:14 Last Admin: 03/22/23 18:12 Dose: 20 mg Glucagon (Glucagon For Inj 1 Mg Vial) 1 mg SQ UD PRN; Protocol PRN Reason: Hypoglycemia Protocol Stop: 04/16/23 14:34 Glucose (Glucose 10 Tab/Tube) 4 - 8 tab PO UD PRN; Protocol PRN Reason: Hypoglycemia Treatment Stop: 04/16/23 14:34 Glucose (Glucose 40% Gel 15 Gm Tube) 15 - 30 gm PO UD PRN; Protocol PRN Reason: Hypoglycemia Protocol Stop: 04/16/23 14:34 Diltiazem HCl 125 mg/ Dextrose 125 mls @ 0 mls/hr IV .Q0M [facility]; Protocol Stop: 04/22/23 10:44 Last Titration: 03/24/23 10:51 Dose: Infused Insulin Aspart (Insulin Aspart Per Unit Charge) 0 units SC ACHS [facility] Stop: 04/22/23 17:44 Last Admin: 03/24/23 13:00 Dose: 4 units Levothyroxine Sodium (Levothyroxine Sodium 150 Mcg Tablet) 150 mcg PO DAILYBB [facility] Stop: 04/17/23 06:29 Last Admin: 03/24/23 05:05 Dose: 150 mcg Magnesium Hydroxide (Magnesium Hydroxide Susp 30 Ml Udc) 30 ml PO Q6H PRN PRN Reason: Constipation Stop: 04/16/23 14:34 Metoprolol Tartrate (Metoprolol Tartrate 1 Mg/Ml Vial) 5 mg IV Q6 PRN PRN Reason: Tachycardia Stop: 04/20/23 02:49 Metoprolol Tartrate (Metoprolol Tartrate 25 Mg Tab) 12.5 mg PO TID [facility] Stop: 04/22/23 13:59 Last Admin: 03/24/23 12:17 Dose: 12.5 mg Miconazole Nitrate (Miconazole Nitrate Powder 85 Gm) 1 appln EXT BID PRN PRN Reason: Affected Skin Folds Stop: 04/18/23 18:41 Miscellaneous (Carbohydrates For Hypoglycemia ) 15 - 30 gm PO UD PRN PRN Reason: Hypoglycemia Protocol Stop: 04/16/23 14:34 Ondansetron HCl (Ondansetron Inj 2 Mg/Ml 2 Ml Vial) 4 mg IV Q6H PRN PRN Reason: Nausea Stop: 04/16/23 14:34 Polyethylene Glycol (Polyethylene (Miralax) 17 Gm Pack) 17 gm PO DAILY PRN PRN Reason: Constipation Stop: 04/16/23 14:34 Potassium Chloride (Potassium Chloride 10 Meq Tabcr) 10 meq PO QAM [facility] Stop: 04/17/23 08:59 Last Admin: 03/24/23 09:14 Dose: 10 meq Pravastatin Sodium (Pravastatin Sod 40 Mg Tab) 40 mg PO HS [facility] Stop: 04/16/23 20:59 Last Admin: 03/23/23 21:11 Dose: 40 mg Umeclidinium/Vilanterol (Umeclidinium/Vilanterol 62.5/25mcg 7 Puffs/Inhaler) 1 puffs INH DAILY NABEEL Stop: 04/17/23 08:59 Last Admin: 03/24/23 09:12 Dose: 1 puffs (8) Metastatic lung cancer (metastasis from lung to other site) Laterality: unspecified laterality Qualified Code(s): C34.90 - Malignant neoplasm of unspecified part of unspecified bronchus or lung
--- NOTE | 2023-03-24 18:01 | Electrocardiogram Report ---
Test Reason : Blood Pressure : / mmHG Vent. Rate : 068 BPM Atrial Rate : 068 BPM P-R Int : 136 ms QRS Dur : 082 ms QT Int : 354 ms P-R-T Axes : 031 054 187 degrees QTc Int : 376 ms Normal sinus rhythm Low voltage QRS Nonspecific ST and T wave abnormality Abnormal ECG When compared with ECG of 23-MAR-2023 01:39, Sinus rhythm has replaced Atrial fibrillation Vent. rate has decreased BY 86 BPM Confirmed by Tushar Munoz ([id number]) on 03/24/2023 6:01:21 PM Referred By: REFERRED SELF Confirmed By:Vinicio Munoz
[2023-03-24] MEDS: PRAVASTATIN SOD 40 MG TAB PO SCH (20:33)
[2023-03-25] MEDS: LEVOTHYROXINE SODIUM 150 MCG TABLET PO SCH (05:13)
[2023-03-25 06:13] LABS: Basophils # (auto) 0.08 K/uL (0-0.2); Basophils % (auto) 0.6 %; Eosinophils # (auto) 0.45 K/uL (0-0.50); Eosinophils % (auto) 3.4 %; Hemoglobin 9.6 g/dl (12.0-16.0); Immature Granulocytes # (auto) 0.21 K/uL (0.01-0.20); Immature Granulocytes % (auto) 1.6 %; Lymphocytes # (auto) 0.53 K/uL (1.2-3.4); Mean Corpuscular Hemoglobin 27.5 pg (25.0-34.0); Mean Corpuscular Volume 91.7 fL (80.0-100.0); Mean Platelet Volume 10.5 fL (9.4-12.4); Monocytes # (auto) 0.99 K/uL (0.11-0.59); Monocytes % (auto) 7.5 %; Neutrophils # (auto) 10.91 K/uL (1.40-6.50); Neutrophils % (auto) 82.9 %; Platelet Count 298 K/uL (130-400); RDW Coefficient of Variation 15.2 % (11.5-14.5); RDW Standard Deviation 51.1 fL (36.4-46.3); Red Blood Count 3.49 M/uL (4.20-5.40); White Blood Count 13.17 K/ul (4.8-10.8)
[2023-03-25 06:30] LABS: BUN Creatinine Ratio 29.6 (10-20); Calcium 8.5 mg/dl (8.6-10.3); Creatinine Clr Calc Pharmacy 107.7 ml/min; Est GFR (Non-African American) 98.3 ml/min; Potassium 3.8 mmol/L (3.5-5.1)
[2023-03-25] MEDS: UMECLIDINIUM/VILANTEROL 62.5/25MCG 7 PUFFS/INHALER INH SCH (08:40)
[2023-03-25] MEDS: ASPIRIN 81 MG ECTAB PO SCH (08:40)
[2023-03-25] MEDS: FLUTICASONE FUROATE 100MCG 14 PUFFS/INHALER INH SCH (08:40)
[2023-03-25] MEDS: METOPROLOL TARTRATE 25 MG TAB PO SCH ×3 (08:41→19:37)
[2023-03-25] MEDS: APIXABAN 5 MG TABLET PO SCH ×2 (08:41→19:37)
[2023-03-25] MEDS: EZETIMIBE 10 MG TABLET PO SCH (08:41)
[2023-03-25] MEDS: POTASSIUM CHLORIDE 10 MEQ TABCR PO SCH (08:41)
[2023-03-25] MEDS: INSULIN ASPART PER UNIT CHARGE SC SCH ×4 (09:14→20:17)
--- NOTE | 2023-03-25 11:14 | Cardiology Progress Note ---
Date of Service March 25, 2023 Assessment & Plan (1) Acute and chronic respiratory failure with hypoxia: (2) COPD (chronic obstructive pulmonary disease): (3) Metastatic lung cancer (metastasis from lung to other site): (4) PAF (paroxysmal atrial fibrillation): (5) Heart failure, diastolic, with acute decompensation: Plan Continue IV diuresis and oral potassium supplementation. Continue metoprolol tartrate as prescribed. Admission and Anticipated Discharge Date Admission Date: March 17, 2023 Supervising Physician Co-Signing Physician Notes 68-year-old female seen and examined at the bedside. Remains in sinus rhythm. Tolerating low-dose metoprolol 3 times daily. Denies palpitations. Dyspnea unchanged. Bilateral lower extremity edema noted. PE: VSS. Heart: Regular rhythm, normal S1, S2. No murmur. Lungs: Diminished breath sounds bilaterally with expiratory wheezing. Extremities: 1+ bilateral pedal and ankle edema. A/P: Agree with above PA-C history, physical exam, assessment and plan with the following additions. Continue metoprolol tartrate 12.5 mg 3 times daily and IV Lasix. Monitor fluid balance, daily weight, GFR, and electrolytes. Continue telemetry monitoring. Subjective Patient seen and examined. Chart, medications, and telemetry reviewed. Patient received 40 mg of IV furosemide yesterday with an additional 20 mEq of potassium chloride without difficulty. I's/O's negative 1,248 mL's over the last 24 hours. Patient notes may be minimal improvement in lower extremity peripheral edema. Breathing is stable. No chest pain. No palpitations. Continuous phototypesetting equipment monitor reveals sinus rhythm in the 70s to 90s. Review of Systems Review of Systems: Complete ROS is as stated above, negative, or noncontributory. Physical Exam Physical Exam: General: A&Ox3. NAD. HENT: Normocephalic. Atraumatic. Eyes: PER. Conjunctiva pink, sclera clear. Neck: No overt JVD. Heart: Distant heart sounds. Regular at 70 bpm. No murmur appreciated. Lungs: Diminished. Decreased. Right basilar rales. No wheeze. Abdomen: +BS. Soft. Nontender. No organomegaly. Extremities: 1+ chronic indurated edema. No cyanosis. Limited neurological examination is without focal deficits. Results & Data Vital Signs (Past 12 Hours) Vital Signs Temp Pulse Pulse Pulse Resp BP Pulse Ox 03/25/23 08:45 82 L 03/25/23 07:33 03/25/23 08:48 80 20 90 03/25/23 07:26 36.4 C L 70 22 119/65 93 03/25/23 07:11 63 03/25/23 07:01 80 24 90 03/25/23 06:41 90 03/25/23 06:40 84 L 03/25/23 06:31 87 L 03/25/23 06:25 85 L 03/25/23 03:31 36.5 C 64 20 103/60 93 03/25/23 03:09 63 19 90 03/24/23 23:50 O2 Del Method O2 Flow Rate FiO2 03/25/23 08:45 High Flow Nasal Cannula 30 65 03/25/23 07:33 BiPAP, High Flow Nasal Cannula 03/25/23 08:48 High Flow Nasal Cannula 35 80 03/25/23 07:26 High Flow Nasal Cannula 03/25/23 07:11 03/25/23 07:01 90 03/25/23 06:41 BiPAP 90 03/25/23 06:40 BiPAP 80 03/25/23 06:31 BiPAP 80 03/25/23 06:25 BiPAP 70 03/25/23 03:31 High Flow Nasal Cannula 30 65 03/25/23 03:09 High Flow Nasal Cannula 30 65 03/24/23 23:50 BiPAP 70 Laboratory Results Coagulation 03/24/23 Range/Units 11:26 APTT 34.8 H (21.0-31.0) Seconds CBC 03/25/23 Range/Units 05:53 WBC 13.17 H (4.8-10.8) K/ul RBC 3.49 L (4.20-5.40) M/uL Hgb 9.6 L (12.0-16.0) g/dl Hct 32.0 L (37.0-47.0) % Plt Count 298 (130-400) K/uL Neut # (Auto) 10.91 H (1.40-6.50) K/uL Lymph # (Auto) 0.53 L (1.2-3.4) K/uL Vernon # (Auto) 0.99 H (0.11-0.59) K/uL Eos # (Auto) 0.45 (0-0.50) K/uL Baso # (Auto) 0.08 (0-0.2) K/uL Comprehensive Metabolic Panel 03/25/23 Range/Units 05:53 Sodium 138 (136-145) mmol/L Potassium 3.8 (3.5-5.1) mmol/L Chloride 96 L (98-107) mmol/L Carbon Dioxide 37 H (21-32) mmol/L BUN 16 (6-23) mg/dl Creatinine 0.54 L (0.6-1.2) mg/dl Glucose 226 H (70-99(Fasting)) mg/dl Calcium 8.5 L (8.6-10.3) mg/dl Intake and Output 03/24/23 03/25/23 03/25/23 22:59 06:59 14:59 Intake Total 1005 / 1627.4 440 / 1627.4 Output Total 1376 / 2876 1500 / 2876 Balance -371 / -1248.6 -1060 / -1248.6 -1 Intake: Oral 1005 / 1445 440 / 1445 Output: Urine 1050 / 2550 1500 / 2550 Drain Output 325 / 325 Right Back 325 / 325 # Bowel Movements Other: # Unmeasured Voids 1 Weight 94.8 kg Patient Weight 03/26/23 06:59 Weight 94.8 kg (2) COPD (chronic obstructive pulmonary disease) COPD type: unspecified COPD Qualified Code(s): J44.9 - Chronic obstructive pulmonary disease, unspecified (3) Metastatic lung cancer (metastasis from lung to other site) Laterality: unspecified laterality Qualified Code(s): C34.90 - Malignant neoplasm of unspecified part of unspecified bronchus or lung
[2023-03-25] MEDS ORDERED: POTASSIUM CHLORIDE CRTAB 20 MEQ TABCR PO ONE (11:17)
--- NOTE | 2023-03-25 11:23 | Palliative Care Progress Note ---
Date of Service March 25, 2023 Assessment & Plan (1) Palliative care by specialist: (2) Advanced care planning/counseling discussion: Plan: Spoke with pt face to face x 45min, brother was present We spoke about the news she has been hearing in regards to her lung failure, HFNC dependency, worsening resp dynamics and concerns of disease progression without being able to make it to chemo. She shares her perception "I've been coming back and forth and back and forth for a while and they just found the problem but they should have done something about it sooner and I wouldn't be here." When asked what specifically was not "found" until this admission, she shrugged and said "my lungs getting worse I guess." We spoke about the recurrent admissions, each time recovering to a lower PS and further weakness, and that oxygen needs have been rising. She tells me she was told she cannot go back home with current oxygen needs aka HFNC. I asked her what that means from a moving forward/what is next step perspective and she replied "I guess that's what we need to talk about at a family meeting." I shared with pt and her brother that I returned Farrah's call and LMVM earlier this morning requesting a call back. pt states Farrah works and may have gone back to school as well, it may be tough for her to call back the same day. I asked patient who she wants at the meeting and she states she would like Farrah as well as both daughters and other family who may be available. Pt notes both of her daughters work until about 2-3pm, so a meeting would likely need to be held in the 330pm range unless arrangements are made in advance for daughters to leave early. Summer remains unwilling to further explore the issues of advanced illness planning or even code status. She very decisively states these are matters to be discussed in the bigger group. I asked Summer to use the next day or so to begin thinking about what matters the most to her when time may be limited and options are now evolving to be different than what was initially felt to be feasible potentials. I also asked her to consider where and with whom she would want to be, what are the top 3 priorities for her knowing what she knows now about her progressive resp decline and worsening cancer, etc. I suggested she write down the top "what matters most to me" items in anticipation of the meeting and advised her these priorities she identifies would be the guide posts we use to develop a plan of care moving forward that is in alignment with and respects/honors her wishes and priorities. She expressed understanding and replied she would try to do so in next day or so. Her brother denied having additional questions or concerns but was observed to be distressed/sl tearful with patient's news and the implications thereof. Plan * Advised by nursing "Family for room [address] was wondering about maybe having a family discussion regarding goals of care ( next time you talk). I told her we were still waiting to hear from the oncology doc but just so you have her info, her name was Farrah. She is the daughter in law. [phone]." * I called Farrah this morning and [facility] requesting call back/asking what day and time work for a meeting. I updated pt and her brother about attempt to reach Farrah. * patient remains unwilling to discuss ACP/GOC or code but states she feels these are matters to be discussed with the entire family group. She agrees to begin thinking about what matters most to her as a guide to help shape the best plan of care we can for her wishes. * I will wait for Farrah to call me back. I have updated primary, oncology and pulmonary medicine teams as well as nursing. Thank you for allowing us to participate in the ongoing care of this patient. Please don't hesitate to call or page with any additional concerns. Dr. Charisma Hartmann DNP Director, Palliative Care Admission and Anticipated Discharge Date Admission Date: March 17, 2023 Subjective Oxygen needs remain hi still on HFNC hovers around FiO2 80% - it is worrisome that she is not tolerating weaning attempts Resp status is tenuous She is still unwilling to discuss code status and goals, continues to express wish for/conviction that chemo will cure these issues and perceives that "this stuff wasn't caught sooner and now I have no options" Struggles to align the worsening resp status + progression of disease and lower utility/feasibility for chemo which would not be curative at this time. her brother is visiting at bedside. Review of Systems Review of Systems: All systems reviewed & are unremarkable except as noted in Subjective Physical Exam Physical Exam: Inc res effort, +conversational dyspnea, use of accessory muscles noted remains on HFNC with FiO2 80% Very diminished absent right lung linder, diminished with crackles on left tachycardic abd soft, NT, no guarding BLE 1+ edema, +vasc insuff changes Skin pale, scatt echymoses throughout, +friable skin, +dry skin AAOx3 +Anxious Results & Data Vital Signs (Past 12 Hours) Vital Signs Temp Pulse Pulse Pulse Resp BP Pulse Ox 03/25/23 08:45 82 L 03/25/23 07:33 03/25/23 08:48 80 20 90 03/25/23 07:26 36.4 C L 70 22 119/65 93 03/25/23 07:11 63 03/25/23 07:01 80 24 90 03/25/23 06:41 90 03/25/23 06:40 84 L 03/25/23 06:31 87 L 03/25/23 06:25 85 L 03/25/23 03:31 36.5 C 64 20 103/60 93 03/25/23 03:09 63 19 90 03/24/23 23:50 O2 Del Method O2 Flow Rate FiO2 03/25/23 08:45 High Flow Nasal Cannula 30 65 03/25/23 07:33 BiPAP, High Flow Nasal Cannula 03/25/23 08:48 High Flow Nasal Cannula 35 80 03/25/23 07:26 High Flow Nasal Cannula 03/25/23 07:11 03/25/23 07:01 90 03/25/23 06:41 BiPAP 90 03/25/23 06:40 BiPAP 80 03/25/23 06:31 BiPAP 80 03/25/23 06:25 BiPAP 70 03/25/23 03:31 High Flow Nasal Cannula 30 65 03/25/23 03:09 High Flow Nasal Cannula 30 65 03/24/23 23:50 BiPAP 70 Laboratory Results data reviewed Diagnostic Findings data reviewed PG Care Time/CCT Total # of Minutes Spent Total Time Spent: 65 Total Time Spent with Patient: Total time spent is greater than 50% in coordination of care (as documented) at patient's floor/unit and/or counseling patient: Advanced Care Planning 52193 Advanced Care Planning 30 Min [place] [address] SUB INP/OBS CARE 3/50MIN Patient Type Established History Comprehensive Exam Comprehensive Medical Decision Making High Complexity Diagnoses Palliative care by specialist Z51.5 Advanced care planning/counseling discussion Z71.89 Additional Codes Advanced Care Planning - 01396 Advanced Care Planning 30 Min: 52186 Advanced Care Planning 30 Min ([id number])
--- NOTE | 2023-03-25 11:33 | Pulmonology Progress Note ---
Date of Service March 25, 2023 Assessment & Plan (1) Acute and chronic respiratory failure with hypoxia: (2) Pleural effusion on right: (3) COPD (chronic obstructive pulmonary disease): COPD type: unspecified COPD Qualified Code(s): J44.9 - Chronic obstructive pulmonary disease, unspecified (4) BHAVIK on CPAP: (5) CHF (congestive heart failure): Heart failure chronicity: acute on chronic Heart failure type: unspecified Qualified Code(s): I50.9 - Heart failure, unspecified (6) Metastatic lung cancer (metastasis from lung to other site): Laterality: unspecified laterality Qualified Code(s): C34.90 - Malignant neoplasm of unspecified part of unspecified bronchus or lung Plan Impression: 67-year-old female with overlap syndrome (obstructive lung disease/sleep disordered breathing) on CPAP as well as metastatic adenocarcinoma (Mets to bone and liver). She status post Pleurx catheter placement for malignant effusion. She received only 1 dose of pembrolizumab as an outpatient and has not been able to remain out of the hospital or be stable enough to initiate any additional chemotherapy or immunotherapy Recommendations: 1. Sleep disordered breathing: Continue nightly CPAP. She can follow-up with the [facility] outpatient sleep physicians with whom she is established. 2. Hypoxemic respiratory failure: I reviewed the patient's CT scans independently and showed the patient the pictures. She has complete consolidation of the right lower lobe with tumor replacement. I do not think this is a pneumonic process and is directly attributable to her cancer. She also has what appears to be probable lymphangitic involvement and potential tumor emboli syndrome. Unfortunately none of these etiologies are potentially reversible. The patient will continue to demonstrate significant shunt physiology with high oxygen requirement due to shunting through the nonfunctional right lower lobe. There is no therapy available for this. This will not respond to antibiotics or diuretics. 3. Morbid obesity: Weight loss is imperative. 4. COPD: Patient was on Symbicort Spiriva and as needed albuterol in the outpatient setting. Continue for now. She is not bronchospastic and I do not think she would benefit from additional steroids at this point time. 5. 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 There is minimal fluid on the repeat CT scan. The abnormality identified on chest x-ray demonstrates consolidation in the right lower lobe, not pleural fluid. I discussed with oncology today. They state there is no role for additional chemotherapy or immunotherapy currently and they recommended a palliative approach. Patient is too ill and unstable to consider initiation of any additional chemotherapeutic or immune therapy. Her prognosis is very poor 6. Hypercarbic respiratory failure: The patient's pH is controlled currently. Would not try and normalize her CO2 levels. Palliative care is following the patient and apparently after my discussion with the patient family has requested a meeting. I think it is reasonable as I think it is unlikely that the patient will be able to go home with such a high oxygen requirement. Ultimate disposition is unclear. While the patient appears quite comfortable on high flow oxygen, unfortunately I do not think this is going to be a reversible condition and expectation that the patient's oxygen requirement will decrease enough to allow her to be transitioned back to home or to an alternative setting outside the hospital seems unlikely. The patient was obviously quite distraught with this information and will need some time to process. Apparently family members are becoming involved as well which I ce rtainly think is reasonable. Redefining goals of therapy would be highly recommended and reasonable. There may be some disconnect between the patient's goals and what is medically feasible at this point time Will continue to follow with you. Please contact me with questions. 50 minutes evaluating and managing and coordinating care of this highly complex patient including end-of-life issues Admission and Anticipated Discharge Date Admission Date: March 17, 2023 Subjective Patient seen and examined sitting at the side of the bed. She is on high flow and has had her oxygen requirement increased to 80% FiO2. She continues to drain her Pleurx catheter on a daily basis and got only about 300 cc out in the last 24 hours. She is not coughing or expectorating any phlegm. Review of Systems Review of Systems: All systems reviewed & are unremarkable except as noted in Subjective Physical Exam Constitutional: WD/WN, vitals as above + morbidly obese Neck: trachea midline, no thyromegaly Respiratory: no respiratory distress, no labored breathing and not tachypneic Auscultation: + diminished lung sounds; no crackles and no wheezes Cardiovascular: Rate/Rhythm: + tachycardic and + irregularly irregular Heart Sounds: normal S1 and normal S2 Gastrointestinal (Abdomen): normal bowel sounds, soft, nontender, no hepatosplenomegaly Musculoskeletal: Extremities: extremities normal to inspection Skin: no rashes, warm and dry Lymphatic: no cervical lymphadenopathy Results & Data Results & Data Vital Signs (Past 12 Hours) Vital Signs Temp Pulse Pulse Pulse Resp BP Pulse Ox 03/25/23 08:45 82 L 03/25/23 07:33 03/25/23 08:48 80 20 90 03/25/23 07:26 36.4 C L 70 22 119/65 93 03/25/23 07:11 63 03/25/23 07:01 80 24 90 03/25/23 06:41 90 03/25/23 06:40 84 L 03/25/23 06:31 87 L 03/25/23 06:25 85 L 03/25/23 03:31 36.5 C 64 20 103/60 93 03/25/23 03:09 63 19 90 03/24/23 23:50 O2 Del Method O2 Flow Rate FiO2 03/25/23 08:45 High Flow Nasal Cannula 30 65 03/25/23 07:33 BiPAP, High Flow Nasal Cannula 03/25/23 08:48 High Flow Nasal Cannula 35 80 03/25/23 07:26 High Flow Nasal Cannula 03/25/23 07:11 03/25/23 07:01 90 03/25/23 06:41 BiPAP 90 03/25/23 06:40 BiPAP 80 03/25/23 06:31 BiPAP 80 03/25/23 06:25 BiPAP 70 03/25/23 03:31 High Flow Nasal Cannula 30 65 03/25/23 03:09 High Flow Nasal Cannula 30 65 03/24/23 23:50 BiPAP 70 Laboratory Results 03/25/23 05:53 03/25/23 05:53 Diagnostic Findings No new imaging PG Care Time/CCT Total # of Minutes Spent Total Time Spent with Patient: Total time spent is greater than 50% in coordination of care (as documented) at patient's floor/unit and/or counseling patient: Coding Level of Care Code 07626 SUB INP/OBS CARE 3/50MIN Diagnoses Acute and chronic respiratory failure with hypoxia J96.21 Pleural effusion on right J90 COPD (chronic obstructive pulmonary disease) J44.9 COPD type: unspecified COPD BHAVIK on CPAP G47.33; Z99.89 CHF (congestive heart failure) I50.9 Heart failure chronicity: acute on chronic Heart failure type: unspecified Metastatic lung cancer (metastasis from lung to other site) C34.90 Laterality: unspecified laterality
[2023-03-25] MEDS: FUROSEMIDE 40 MG/4 ML VIAL IV SCH (11:51)
--- NOTE | 2023-03-25 14:58 | Hospitalist Progress Note ---
Date of Service March 25, 2023 Assessment & Plan (1) Acute and chronic respiratory failure with hypoxia: Plan: presented in respiratory distress that rapidly improved with Lasix, BiPAP, and pleural cath drainage Imaging consistent with acute on chronic HFpEF and worsened pleural effusion d/t underlying lung ca Pt reports medication compliance no e/o COPD exacerbation on exam continue with supplemental O2, BiPAP for sleep and prn, Furosemide, and daily drainage of pleural cath for now (normally done at home by family members and LEAD RADIOLOGIC TECHNOLOGIST) Has been feeling much better with daily drainage from the pleural catheter Discussed with the video game developer and the drainage will be done daily as planned She has been feeling a lot better and will have PT OT evaluation Clinically not yet any better to be discharged Has been requiring more oxygen Will give an extra Lasix today We will get a repeat chest x-ray tomorrow to evaluate congestion further Seems to be not yet ready to go home and is still requiring 10 L of oxygen to maintain saturation Chest x-ray showed increasing congestion mostly on the right side with effusion Will give extra dose of 40 mg Lasix IV and continue drainage Her oral Lasix was changed to intravenously and will continue drainage of right pleural fluid as planned The numbers are looking better during writing of this note as she has been requiring less FiO2 maintain saturation Symptomatically improved but still requiring very high flow oxygen especially with ambulation Likely not to improve further as long as her cancer is improved We will continue to give more Lasix today for bilateral leg edema and fluid overload as per turnstile collector Condition has been worse today and does not any sign of improvement Palliative care encounter Appreciate palliative input and recommendation The patient wants to try Keytruda Her technical training manager is on vacation right now and Keytruda cannot be given in the hospital We will try to discharge patient in a few days with further improvement of her respiratory condition Palliative care is going to have a meeting with family members to decide further goals of care from here Condition got worse with the atrial fibrillation and more shortness of breath Chest x-ray showed more effusion on the right side otherwise clear Appreciate cardiology input and recommendation CTA did not show any pulmonary embolism We will continue with current medications as recommended including Lasix for more diuresis A-fib with RVR The patient developed atrial fibrillation with RVR last night Started with intravenous heparin and subcu Lovenox is discontinued Echo of the heart showed-normal LV size, LV systolic function is normal, EF 60 to 65%, grade 1 diastolic dysfunction, no significant valvular pathology, no pericardial effusion and mild pulmonary hypertension Rate is controlled this morning Appreciate cardiology input and recommendation Has been on beta-mike and the rate is controlled now Heart rate is controlled and is still on intravenous heparin and will go for Eliquis likely for long-term anticoagulation Received intravenous Cardizem, Lopressor and also digoxin overnight to control the heart rate Appreciate cardiology recommendation this morning to continue with the Cardizem drip and increasing the beta-mike Off Cardizem drip-heart rate is controlled Heparin discontinued and Eliquis added (2) Pleural effusion on right: Plan: Metastatic lung cancer with pleural effusion continue to drain with catheter, for now increase to daily continue to treat HFpEF continue to treat lung ca, recently started Keytruda Will have drainage from the Pleurx catheter daily Catheter management will be done by content manager as an outpatient Will have more drainage from the right pleural effusion this morning Continue with drainage through the Pleurx catheter daily (3) Metastatic lung cancer (metastasis from lung to other site): Plan: recently started Keytruda We will continue current dose of Keytruda when appropriate We will ask for palliative care consult tomorrow after discussion with the patient Keytruda has been on hold and will be restarted as soon as possible Likely his cancer has been progressing with increasing symptoms of shortness of breath and also cardiac arrhythmias Not being improving to have any therapy for the cancer as an outpatient Appreciate palliative care involvement and family meeting to decide the goals of care from here (4) Acute and chronic respiratory failure with hypercapnia: Plan: as above under acute and chronic respiratory failure with hypoxia continue BiPAP for sleep Denies any significant respiratory symptoms Patient got worse and requiring more oxygen to maintain saturation (5) Chronic diastolic (congestive) heart failure: Plan: acute on chronic diastolic CHF, + vascular congestion on imaging improved with IV Furosemide and BiPAP continue home dose of furosemide, titrate up if needed No significant fluid overload Continue the current dose of medication Received 1 dose of Lasix intravenously today with potassium supplement We will be getting more Lasix for diuresis (6) Pulmonary hypertension: Plan: continue furosemide, BiPAP (7) CAD (coronary artery disease): Plan: no complaints at this time continue BB, asa, statin therapy (8) Diabetes mellitus, type II: Plan: continue metformin, diabetic diet, hypoglycemic protocol glucose checks achs, CDI if needed (9) COPD, group D, by GOLD 2017 classification: Plan: continue Trethania Almaguer not currently with exacerbation Will give 1 treatment of nebulized bronchodilator (10) HTN (hypertension): Plan: continue metoprolol, furosemide (titrate up if needed) (11) Hypothyroid: Plan: continue levothyroxine no indication to check TSH at this time (12) HLD (hyperlipidemia): Plan: continue statin therapy no indication to check a lipid panel at this time Admission and Anticipated Discharge Date Admission Date: March 17, 2023 Subjective 03/18/2023 The patient was seen and examined in medical telemetry unit She has been feeling much better since admission Denies any significant shortness of breath at rest We will get PT and OT evaluation Discussed with the audiovisual production specialist and advised to have daily drainages of fluid 03/19/2023 The patient was seen and examined in medical telemetry unit She is requiring more oxygen to maintain saturation A little shortness of breath at rest Denies any chest pain and/or palpitation 03/20/2023 The patient was seen and examined in medical telemetry unit She has been more wheezy today and is still requiring 10 L to maintain saturation Chest x-ray done and showed more congestion specially in the right lung She will have another dose of Lasix today and will not be discharged 03/21/2023 The patient was seen and examined in telemetry unit She went into atrial fibrillation with more shortness of breath last night and was transferred to telemetry unit Has been requiring more oxygen to maintain saturation Has been feeling much better this morning when I saw her Still complains to have shortness of breath with minimal exertion 03/22/2023 The patient was seen and examined in telemetry unit She has been feeling better at rest but is still requiring 80% of FiO2 with 25 L flow Denies any symptoms at rest but gets short of breath with minimal exertion Denies any chest pain and/or palpitation 03/23/2023 The patient was seen and examined in telemetry unit She has had a rough night yesterday with persistent tachycardia and received multiple medications to control the heart rate as noted Remains stable this morning without any significant symptoms specially no palpitation and no increasing shortness of breath at rest Still requiring high flow oxygen 03/24/2023 The patient was seen and examined in telemetry unit She has had bradycardia last night and Cardizem drip was stopped Reverted to sinus rhythm and denies any cardiac symptoms No significant shortness of breath at rest but is still requiring high flow oxygen 03/25/2023 The patient was seen and examined in telemetry unit She she is much worse today with increasing shortness of breath even at rest Denies any chest pain and/or palpitation No nausea or vomiting and no fever and or chills Review of Systems Review of Systems: All systems reviewed and are unremarkable except as noted below Physical Exam Physical Exam: Sitting at the side of the bed with moderate distress due to shortness of breath Constitutional: well developed, well nourished, + ill appearing and + obese Eyes: PERRL, conjunctivae normal, anicteric sclerae ENMT: external ear and nose normal, oropharynx normal Neck: trachea midline, no thyromegaly Respiratory: no respiratory distress Auscultation: + diminished lung sounds and + crackles (Minimal crackles. More on the right side at the base) Cardiovascular: Rate/Rhythm: regular rate and regular rhythm; not tachycardic Heart Sounds: normal S1 and normal S2; no murmur Extremities: + edema (1+ bilaterally) Gastrointestinal (Abdomen): Inspection/Auscultation: normal bowel sounds; abdomen not distended Percussion/Palpation: abdomen soft; abdomen nontender Musculoskeletal: No acute arthritis involving any of the joint Neurologic: normal touch/pain/proprioception and moves all extremities; no focal motor deficits Psychiatric: A+Ox3, euthymic affect Lymphatic: no cervical or axillary lymphadenopathy Results & Data Results & Data Vital Signs (Past 12 Hours) Vital Signs Temp Pulse Pulse Pulse Resp BP Pulse Ox 03/25/23 11:53 78 22 93 03/25/23 11:21 36.9 C 72 22 123/74 95 03/25/23 08:45 82 L 03/25/23 07:33 03/25/23 08:48 80 20 90 03/25/23 07:26 36.4 C L 70 22 119/65 93 03/25/23 07:11 63 03/25/23 07:01 80 24 90 03/25/23 06:41 90 03/25/23 06:40 84 L 03/25/23 06:31 87 L 03/25/23 06:25 85 L 03/25/23 03:31 36.5 C 64 20 103/60 93 03/25/23 03:09 63 19 90 O2 Del Method O2 Flow Rate FiO2 07/12/23 11:53 High Flow Nasal Cannula 35 80 03/25/23 11:21 High Flow Nasal Cannula 03/25/23 08:45 High Flow Nasal Cannula 30 65 03/25/23 07:33 BiPAP, High Flow Nasal Cannula 03/25/23 08:48 High Flow Nasal Cannula 35 80 03/25/23 07:26 High Flow Nasal Cannula 03/25/23 07:11 03/25/23 07:01 90 03/25/23 06:41 BiPAP 90 03/25/23 06:40 BiPAP 80 03/25/23 06:31 BiPAP 80 03/25/23 06:25 BiPAP 70 03/25/23 03:31 High Flow Nasal Cannula 30 65 03/25/23 03:09 High Flow Nasal Cannula 30 65 Laboratory Results Short CBC 03/25/23 Range/Units 05:53 WBC 13.17 H (4.8-10.8) K/ul Hgb 9.6 L (12.0-16.0) g/dl Hct 32.0 L (37.0-47.0) % Plt Count 298 (130-400) K/uL BMP 03/25/23 05:53 Sodium 138 Potassium 3.8 Chloride 96 L Carbon Dioxide 37 H BUN 16 Creatinine 0.54 L Glucose 226 H Calcium 8.5 L Medications Administered Current Inpatient Medications Acetaminophen (Acetaminophen 325 Mg Tab) 650 mg PO Q4H PRN PRN Reason: pain/fever Stop: 04/16/23 14:34 Last Admin: 03/24/23 21:52 Dose: 650 mg Apixaban (Apixaban 5 Mg Tablet) 5 mg PO BID NABEEL Stop: 04/23/23 11:59 Last Admin: 03/25/23 08:41 Dose: 5 mg Aspirin (Aspirin 81 Mg Ectab) 81 mg PO DAILY NABEEL Stop: 04/17/23 08:59 Last Admin: 03/25/23 08:40 Dose: 81 mg Dextrose (Dextrose 50% 50 Ml Syringe) 25 - 50 ml IV UD PRN; Protocol PRN Reason: Hypoglycemia Protocol Stop: 04/16/23 14:34 Ezetimibe (Ezetimibe 10 Mg Tablet) 10 mg PO DAILY NABEEL Stop: 04/17/23 08:59 Last Admin: 03/25/23 08:41 Dose: 10 mg Fluticasone Furoate (Fluticasone Furoate 100mcg 14 Puffs/Inhaler) 1 puffs INH DAILY NABEEL Stop: 04/17/23 08:59 Last Admin: 03/25/23 08:40 Dose: 1 puffs Furosemide (Furosemide 40 Mg/4 Ml Vial) 40 mg IV DAILY NABEEL Stop: 04/24/23 11:29 Last Admin: 03/25/23 11:51 Dose: 40 mg Glucagon (Glucagon For Inj 1 Mg Vial) 1 mg SQ UD PRN; Protocol PRN Reason: Hypoglycemia Protocol Stop: 04/16/23 14:34 Glucose (Glucose 10 Tab/Tube) 4 - 8 tab PO UD PRN; Protocol PRN Reason: Hypoglycemia Treatment Stop: 04/16/23 14:34 Glucose (Glucose 40% Gel 15 Gm Tube) 15 - 30 gm PO UD PRN; Protocol PRN Reason: Hypoglycemia Protocol Stop: 04/16/23 14:34 Diltiazem HCl 125 mg/ Dextrose 125 mls @ 0 mls/hr IV .Q0M NABEEL; Protocol Stop: 04/22/23 10:44 Last Titration: 03/24/23 10:51 Dose: Infused Insulin Aspart (Insulin Aspart Per Unit Charge) 0 units SC ACHS [facility] Stop: 04/22/23 17:44 Last Admin: 03/25/23 12:14 Dose: 2 units Levothyroxine Sodium (Levothyroxine Sodium 150 Mcg Tablet) 150 mcg PO DAILYBB [facility] Stop: 04/17/23 06:29 Last Admin: 03/25/23 05:13 Dose: 150 mcg Magnesium Hydroxide (Magnesium Hydroxide Susp 30 Ml Udc) 30 ml PO Q6H PRN PRN Reason: Constipation Stop: 04/16/23 14:34 Metoprolol Tartrate (Metoprolol Tartrate 1 Mg/Ml Vial) 5 mg IV Q6 PRN PRN Reason: Tachycardia Stop: 04/20/23 02:49 Metoprolol Tartrate (Metoprolol Tartrate 25 Mg Tab) 12.5 mg PO TID [facility] Stop: 04/22/23 13:59 Last Admin: 03/25/23 08:41 Dose: 12.5 mg Miconazole Nitrate (Miconazole Nitrate Powder 85 Gm) 1 appln EXT BID PRN PRN Reason: Affected Skin Folds Stop: 04/18/23 18:41 Miscellaneous (Carbohydrates For Hypoglycemia ) 15 - 30 gm PO UD PRN PRN Reason: Hypoglycemia Protocol Stop: 04/16/23 14:34 Ondansetron HCl (Ondansetron Inj 2 Mg/Ml 2 Ml Vial) 4 mg IV Q6H PRN PRN Reason: Nausea Stop: 04/16/23 14:34 Polyethylene Glycol (Polyethylene (Miralax) 17 Gm Pack) 17 gm PO DAILY PRN PRN Reason: Constipation Stop: 04/16/23 14:34 Potassium Chloride (Potassium Chloride 10 Meq Tabcr) 10 meq PO QAM NABEEL Stop: 04/17/23 08:59 Last Admin: 03/25/23 08:41 Dose: 10 meq Pravastatin Sodium (Pravastatin Sod 40 Mg Tab) 40 mg PO HS NABEEL Stop: 04/16/23 20:59 Last Admin: 03/24/23 20:33 Dose: 40 mg Umeclidinium/Vilanterol (Umeclidinium/Vilanterol 62.5/25mcg 7 Puffs/Inhaler) 1 puffs INH DAILY NABEEL Stop: 04/17/23 08:59 Last Admin: 03/25/23 08:40 Dose: 1 puffs (3) Metastatic lung cancer (metastasis from lung to other site) Laterality: unspecified laterality Qualified Code(s): C34.90 - Malignant neoplasm of unspecified part of unspecified bronchus or lung
[2023-03-25] MEDS: ACETAMINOPHEN 325 MG TAB PO PRN (19:36)
[2023-03-25] MEDS: PRAVASTATIN SOD 40 MG TAB PO SCH (19:37)
[2023-03-26] MEDS: LEVOTHYROXINE SODIUM 150 MCG TABLET PO SCH (05:03)
[2023-03-26 06:50] LABS: Calcium 8.9 mg/dl (8.6-10.3); Creatinine Clr Calc Pharmacy 116.4 ml/min; Est GFR (African American) 116.9 ml/min; Est GFR (Non-African American) 100.9 ml/min; Magnesium 2.2 mg/dl (1.7-2.4); Phosphorus 4.2 mg/dl (2.5-4.9); Potassium 4.2 mmol/L (3.5-5.1)
[2023-03-26 07:43] LABS: Base Excess ABG 13.3 mEq/L (-9-1.8); HCO3 ABG 41 mmol/L (19-24); Oxygen Saturation ABG 97.7 % (90-95); PCO2 ABG 67 mmHg (35-46); PO2 ABG 87 mmHg (80-95); pH ABG 7.39 (7.35-7.45)
[2023-03-26 07:51] LABS: Allen Test Pos (Pos)
[2023-03-26] MEDS: APIXABAN 5 MG TABLET PO SCH (08:16)
[2023-03-26] MEDS: ASPIRIN 81 MG ECTAB PO SCH (08:17)
[2023-03-26] MEDS: EZETIMIBE 10 MG TABLET PO SCH (08:17)
[2023-03-26] MEDS: FUROSEMIDE 40 MG/4 ML VIAL IV SCH (08:18)
[2023-03-26] MEDS: POTASSIUM CHLORIDE 10 MEQ TABCR PO SCH (08:19)
[2023-03-26] MEDS: METOPROLOL TARTRATE 25 MG TAB PO SCH (08:19)
[2023-03-26] MEDS: FLUTICASONE FUROATE 100MCG 14 PUFFS/INHALER INH SCH (08:20)
--- NOTE | 2023-03-26 09:24 | Pulmonology Progress Note ---
Date of Service March 26, 2023 Assessment & Plan (1) Acute and chronic respiratory failure with hypoxia: (2) Pleural effusion on right: (3) COPD (chronic obstructive pulmonary disease): COPD type: unspecified COPD Qualified Code(s): J44.9 - Chronic obstructive pulmonary disease, unspecified (4) BHAVIK on CPAP: (5) CHF (congestive heart failure): Heart failure chronicity: acute on chronic Heart failure type: unspecified Qualified Code(s): I50.9 - Heart failure, unspecified (6) Metastatic lung cancer (metastasis from lung to other site): Laterality: unspecified laterality Qualified Code(s): C34.90 - Malignant neoplasm of unspecified part of unspecified bronchus or lung Plan Impression: 67-year-old female with overlap syndrome (obstructive lung disease/sleep disordered breathing) on CPAP as well as metastatic adenocarcinoma (Mets to bone and liver). She status post Pleurx catheter placement for malignant effusion. She received only 1 dose of pembrolizumab as an outpatient and has not been able to remain out of the hospital or be stable enough to initiate any additional chemotherapy or immunotherapy Recommendations: 1. Sleep disordered breathing: Continue nightly CPAP. 2. Hypoxemic respiratory failure: This is due to shunt physiology through the completely consolidated right lower lobe and potential left lytic spread with possible tumor emboli syndrome. Unfortunately none of these etiologies are reversible and the patient's oxygen requirement continues to increase. 3. Morbid obesity: Weight loss is imperative. 4. COPD: Patient was on Symbicort Spiriva and as needed albuterol in the outpatient setting. Continue for now. No indication for steroids 5. 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 There is minimal fluid on the repeat CT scan. The abnormality identified on chest x-ray demonstrates consolidation in the right lower lobe, not pleural fluid. I discussed with oncology today. They state there is no role for additional chemotherapy or immunotherapy currently and they recommended a palliative approach. Patient is too ill and unstable to consider initiation of any additional chemotherapeutic or immune therapy. Her prognosis is very poor 6. Hypercarbic respiratory failure: The patient's pH is controlled currently. Would not try and normalize her CO2 levels. Patient has no good endpoints. She is not able to go home with hospice with high flow. Her oxygen requirements would preclude transfer to care home or skilled facility. We are going to approach the point where we are no longer able to achieve adequate oxygenation. There is no role for noninvasive positive pressure ventilation or mechanical ventilation as he is would not solve the patient's underlying gas exchange issues. I suspect this is a terminal event. The patient is not a candidate for additional chemotherapy or immunotherapy at this point in time. She will pass away due to her malignant disease. A family meeting has been scheduled with palliative today. Regardless of their decision, I think addressing CODE STATUS with providers is appropriate as again there is no role for intubation or mechanical ventilation in this patient. Unfortunately, I think there is little of this to offer from a pulmonary standpoint. We will follow intermittently, available to see or consult with questions Admission and Anticipated Discharge Date Admission Date: March 17, 2023 Subjective Patient seen and examined. EMR reviewed. The patient continues to decline. She is now on an FiO2 of 90% with saturations in the low 80% range. She is quite despondent today after our discussions yesterday. There is apparently a family meeting being arranged later today. She is not coughing or expectorating phlegm. This catheter. Review of Systems Review of Systems: All systems reviewed & are unremarkable except as noted in Subjective Physical Exam Constitutional: WD/WN, vitals as above + morbidly obese Neck: trachea midline, no thyromegaly Respiratory: no respiratory distress, no labored breathing and not tachypneic Auscultation: + diminished lung sounds; no crackles and no wheezes Cardiovascular: Rate/Rhythm: + tachycardic and + irregularly irregular Heart Sounds: normal S1 and normal S2 Gastrointestinal (Abdomen): normal bowel sounds, soft, nontender, no hepatosplenomegaly Musculoskeletal: Extremities: extremities normal to inspection Skin: no rashes, warm and dry Lymphatic: no cervical lymphadenopathy Results & Data Results & Data Vital Signs (Past 12 Hours) Vital Signs Temp Pulse Pulse Resp BP Pulse Ox O2 Del Method 03/26/23 07:15 36.6 C 70 22 118/72 95 BiPAP 03/26/23 07:28 78 24 90 03/26/23 03:02 88 L BiPAP 03/26/23 02:52 85 L BiPAP 03/26/23 02:50 84 L BiPAP 03/26/23 02:49 82 L BiPAP 03/26/23 02:56 36.4 C L 69 18 120/78 86 L BiPAP 03/26/23 02:05 96 H 32 H 94 03/25/23 22:52 36.3 C L 61 18 98/63 L 93 BiPAP 03/25/23 22:17 59 L 20 93 FiO2 03/26/23 07:15 03/26/23 07:28 95 03/26/23 03:02 95 03/26/23 02:52 95 03/26/23 02:50 90 03/26/23 02:49 80 03/26/23 02:56 03/26/23 02:05 80 03/25/23 22:52 03/25/23 22:17 90 Laboratory Results 03/25/23 05:53 03/26/23 05:50 Diagnostic Findings No new imaging PG Care Time/CCT Total # of Minutes Spent Total Time Spent with Patient: Total time spent is greater than 50% in coordination of care (as documented) at patient's floor/unit and/or counseling patient: Coding Level of Care Code 86835 SUB INP/OBS CARE 3/50MIN Diagnoses Acute and chronic respiratory failure with hypoxia J96.21 Pleural effusion on right J90 COPD (chronic obstructive pulmonary disease) J44.9 COPD type: unspecified COPD BHAVIK on CPAP G47.33; Z99.89 CHF (congestive heart failure) I50.9 Heart failure chronicity: acute on chronic Heart failure type: unspecified Metastatic lung cancer (metastasis from lung to other site) C34.90 Laterality: unspecified laterality
[2023-03-26] MEDS: INSULIN ASPART PER UNIT CHARGE SC SCH ×2 (09:33→15:41)
[2023-03-26] MEDS: UMECLIDINIUM/VILANTEROL 62.5/25MCG 7 PUFFS/INHALER INH SCH (09:41)
[2023-03-26 11:08] VITALS: O2SAT 90
[2023-03-26 11:11] VITALS: BP 108/68; TEMP 98.1
[2023-03-26] MEDS ORDERED: LORazepam 2 MG/1 ML VIAL IV PRN (11:38)
[2023-03-26] MEDS ORDERED: GLYCOPYRROLATE 0.2 MG/ML VIAL IV PRN (11:38)
[2023-03-26] MEDS ORDERED: HYDROmorphone INJ 0.5 MG/0.5 ML SYR IV PRN (11:38)
[2023-03-26] MEDS ORDERED: haloperidoL 1 MG TAB PO PRN (11:38)
--- NOTE | 2023-03-26 12:04 | Palliative Care Progress Note ---
Date of Service March 26, 2023 Assessment & Plan (1) Palliative care by specialist: (2) Advanced care planning/counseling discussion: Plan: I met with pt and daughter, Nigel, and dtr in law Yan, at bedside from 1108- 1150am/42 min face to face. Summer initiated discussion by telling her family about prior conversations with oncology and pulmonary, that her cancer is progressing, chemo is no longer an option and she was able to review her lung imaging with Dr gauthier and saw the progression of disease and better grasp the un-fixable nature of her illness. We spoke about progressive lung cancer and rising oxygen needs, worsening symptom burden and declining PS. We talked about how high flow cannot be done at home or SNFs and will need management in hospital. We discussed code status: CPR survival: Only about 10% of patients who have hot-vm-vrocnfdc sudden cardiac arrest survive to hospital discharge, with many survivors having neurologic impairment. This rate is even lower among patients with serious coexisting conditions, ie chance of survival to hospital discharge for in-hospital CPR in older people is low to moderate (15%) and decreases with age, comorbidities, performance status and frailty: for pts > 70 yo, more than half of the patients who initially survived resuscitation in the hospital before hospital discharge. The pooled survival to discharge after in-hospital CPR was 18% for patients between 70 and 79 years old, 15% for patients between 80 and 89 years old and 11% for patients of 90 years and older. (Vu ECHAVARRIA, Cristopher LJ, Salvador F, et al. Trends in short- and long-term survival among pvu-hy-tprtbalj cardiac arrest patients alive at hospital arrival. Circulation 2014;130:7690-9732. AND Lilliam Evans, Yahir T, Kentrell R, et al. Performance of clinical risk scores to predict mortality and neurological outcome in cardiac arrest patients. Resuscitation 2019;136:21-29.) Summer states she does not want to be on life support or on it; She elects DNR/DNI and family expressed agreement after asking if ventilator would help her lung recover enough to be able to get chemo - we discussed that with the adv nature of her cancer, the vent will not reverse or cure the cancer and its complications, so ultimately the vent would not change outcome. Summer pickard snot want to be limited in ability to interact with her family. We discussed comfort care and the transition it entails. She would like to begin comfort care and Farrah asked about IP hospice vs transfer to the [facility] [place] but unfortunately Summer is not stable to be transported that far away on so much high flow. We spoke about hospice: We discussed the goals of hospice as a patient service and the goals of care; we discussed EOL trajectories and transitions carlos the emotional impact of realizing mortality as a concrete reality from prior abstract considerations. Pt was reassured that no matter where they are along this trajectory, they are not alone - their medical team will remain by their side through their journey. Discussed the pros/cons of accepting help when especially weakened and distressed by pain-which would also help provide relief/decrease caregiver burden/strain. I provided education about the hospice benefit: an interdisciplinary program offered by nurses, nurses aides, social workers, chaplains and a medical cash poster for patients with a terminal condition and a life expectancy of less than 6 months. This is covered by Medicare at 100%/no out of pocket expense to patient and all meds/supplies needed by patient for the reason they are on hospice are paid for/covered by hospice. The goal is assure quality of life of the patient in their home setting (home, prison, inpatient hospice setting) by providing symptoms management, psychosocial and spiritual support. However, they cannot offer 24 hours care and if the family is unable to provide that care, they will have to consider personal care with out of pocket cost vs. prison placement. We discussed the goals of hospice as a patient service and the goals of care; we discussed EOL trajectories and transitions carlos the emotional impact of realizing mortality as a concrete reality from prior abstract considerations. Pt was reassured that no matter where they are along this trajectory, they are not alone - their medical team will remain by their side through their journey. Discussed the pros/cons of accepting help when especially weakened and distressed by pain-which would also help provide relief/decrease caregiver burden/strain. Summer and family would like a GIP eval. Due to her high flow oxygen dependency and worsening dyspnea + declining PS + worsening resp dynamics, she cannot have her needs met at home. She is not ready for formalized HFNC de-escalation but agrees she does not want anything escalated beyond current settings. (3) Dyspnea and respiratory abnormalities: Plan: If pt requests HFNC de escalation OR she becomes unresponsive and HFNC can be de escalated in accordance with the comfort plan of care, please refer to the following High flow weaning protocol: Although the role of high flow oxygen via nasal cannula (HFNC) in patients with life-limiting respiratory illnesses is not well-defined, weaning high flow oxygen in a conscious and interactive patient at the end of life presents unique challenges but allows for meaningful life-closure moments. Recommended Protocol: * Provider, RN, and RT discuss plan * engage additional MDT as needed: social work, gamma ray operator, etc. * Stop monitors, ensure working IV * Pre-wean medications: Begin hydromorphone infusion, prn dose and Lorazepam 1mg IV * Consider Hydromorphone 0.5-1mg per hour infusion * Consider Hydromorphone 1mg IV Q10min prn air hunger * Four Down Titrations: Approximately 25% Reduction every 10 minutes (reduce FiO2 and liter flow) - Medicate - Wait for 10 min for peak effect, decrease liter flow and FiO2 by 25% followed by immediate repeat bolusing - Wait 10 min then decrease liter flow and FiO2 by 25%, followed by immediate repeat bolusing - Give another Lorazepam 1mg IV bolus - Wait another 10 min then decrease liter flow and FiO2 by 25% followed by immediate repeat bolusing - Wait another 10 min then decrease liter flow and FiO2 by the final 25% followed by immediate repeat bolusing - Give another 1mg Lorazepam 1mg IV if needed * Observe for and treat symptoms * Provide anticipatory guidance (4) Acute and chronic respiratory failure with hypoxia: (5) 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: (6) Heart failure, diastolic, with acute decompensation: (7) COPD (chronic obstructive pulmonary disease): (8) Metastatic lung cancer (metastasis from lung to other site): Plan * Family meeting as noted above * Patient elects DNR/DNI and transition to comfort focused plan of care. Orders written. * She is not ready to formally de escalate high flow but a HFNC weaning protocol is outlined above for use when needed. * I have requested a GIP consult * I have updated primary team, nursing, care mgt and RT. Thank you for allowing us to participate in the ongoing care of this patient. Please don't hesitate to call or page with any additional concerns. Dr. Charisma Hartmann DNP Director, Palliative Care Admission and Anticipated Discharge Date Admission Date: March 17, 2023 Subjective Patient seen at bedside with her daughter, Nigel, and daughter in law, Farrah present. A family meeting was held for ACP/goals of care as outlined below. Summer remains on HFNC currently around 40% She has not tolerated weaning Dyspneic with minimal exertion or conversation More tired Appetite ok Had a good discussion last night with Dr Torrez/med onc and tells me she had a lot to think about overnight, feels like she has made some tough decisions and wants to discuss today with family. Review of Systems Review of Systems: All systems reviewed & are unremarkable except as noted in Subjective Physical Exam Physical Exam: deferred Patient family meeting Results & Data Vital Signs (Past 12 Hours) Vital Signs Temp Pulse Pulse Pulse Resp BP Pulse Ox 03/26/23 10:45 36.7 C 82 20 108/68 90 03/26/23 11:07 76 22 90 03/26/23 08:30 80 24 91 03/26/23 07:15 36.6 C 70 22 118/72 95 03/26/23 07:28 78 24 90 03/26/23 03:02 88 L 03/26/23 02:52 85 L 03/26/23 02:50 84 L 03/26/23 02:49 82 L 03/26/23 02:56 36.4 C L 69 18 120/78 86 L 03/26/23 02:05 96 H 32 H 94 O2 Del Method O2 Flow Rate FiO2 03/26/23 10:45 High Flow Nasal Cannula 03/26/23 11:07 High Flow Nasal Cannula 40 100 03/26/23 08:30 High Flow Nasal Cannula 40 90 03/26/23 07:15 BiPAP 03/26/23 07:28 95 03/26/23 03:02 BiPAP 95 03/26/23 02:52 BiPAP 95 03/26/23 02:50 BiPAP 90 03/26/23 02:49 BiPAP 80 03/26/23 02:56 BiPAP 03/26/23 02:05 80 Laboratory Results data reviewed Diagnostic Findings data reviewed PG Care Time/CCT Total # of Minutes Spent Total Time Spent with Patient: Total time spent is greater than 50% in coordination of care (as documented) at patient's floor/unit and/or counseling patient: I spent 107 minutes overall addressing this case: 15 in medical data review/discussion with referring provider(s) and/or preparation for the visit 15 in direct interaction with the patient 42 Advance Care Planning/Goals of Care discussions as detailed above in note (must be >16min) 15 in subsequent review and synthesis of assessment and plan 20 in communicating with other providers regarding the patient's case: primary team attending, nursing, oncology, pulm, care mgt and RT Prolonged Care Time Prolonged Care Time: Yes Advanced Care Planning 81136 Advanced Care Planning 30 Min 80095 Advanced Care Planning Additional 30 Min [place] [address] SUB INP/OBS CARE 3/50MIN Patient Type Established Medical Decision Making High Complexity Diagnoses Palliative care by specialist Z51.5 Advanced care planning/counseling discussion Z71.89 Dyspnea and respiratory abnormalities R06.00; R06.89 Acute and chronic respiratory failure with hypoxia J96.21 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 C34.90; C78.7 Heart failure, diastolic, with acute decompensation I50.33 COPD (chronic obstructive pulmonary disease) J44.9 COPD type: unspecified COPD Metastatic lung cancer (metastasis from lung to other site) C34.90 Laterality: unspecified laterality Additional Codes Prolonged Care Time - Prolonged Care Time: Yes ([id number]) Advanced Care Planning - 06146 Advanced Care Planning 30 Min: 14406 Advanced Care Planning 30 Min ([id number]) Advanced Care Planning - 87149 Advanced Care Planning Additional 30 Min: 87214 Advanced Care Planning Additional 30 Min ([id number]) (7) COPD (chronic obstructive pulmonary disease) COPD type: unspecified COPD Qualified Code(s): J44.9 - Chronic obstructive pulmonary disease, unspecified (8) Metastatic lung cancer (metastasis from lung to other site) Laterality: unspecified laterality Qualified Code(s): C34.90 - Malignant neoplasm of unspecified part of unspecified bronchus or lung
[2023-03-26] MEDS ORDERED: HYDROmorphone INJ 1 MG/ML SYRINGE IV PRN (12:31)
--- NOTE | 2023-03-26 13:01 | Cardiology Progress Note ---
Date of Service March 26, 2023 Assessment & Plan (1) Acute and chronic respiratory failure with hypoxia: (2) COPD (chronic obstructive pulmonary disease): (3) Metastatic lung cancer (metastasis from lung to other site): (4) PAF (paroxysmal atrial fibrillation): (5) Heart failure, diastolic, with acute decompensation: Plan Discontinue IV Lasix Start/resume oral furosemide in AM Continue metoprolol tartrate as prescribed. Please contact with any questions or concerns. Admission and Anticipated Discharge Date Admission Date: March 17, 2023 Supervising Physician Co-Signing Physician Notes 68-year-old female seen and examined at the bedside. Remains in sinus rhythm. Tolerating low-dose metoprolol 3 times daily. Denies palpitations. Dyspnea unchanged. Bilateral lower extremity edema noted. PE: VSS. Heart: Regular rhythm, normal S1, S2. No murmur. Lungs: Diminished breath sounds bilaterally with expiratory wheezing. Extremities: trace to mild bilateral pedal and ankle edema. A/P: Agree with above PA-C history, physical exam, assessment and plan. Continue metoprolol tartrate 12.5 mg 3 times daily. Resume oral furosemide. Monitor fluid balance, daily weight, GFR, and electrolytes. Continue telemetry monitoring. Cardiology will sign off. Please call with questions. Subjective Patient seen and examined. Chart, medications, and telemetry reviewed. Patient feels as though her breathing may be a little worse today. No chest pain. No palpitations. Review of the patient's continuous marketing analytics manager reveals sinus rhythm to be maintained over the last 24 hours, currently sinus at 62 bpm. Review of Systems Review of Systems: Complete ROS is as stated above, negative, or noncontributory. Physical Exam Physical Exam: General: A&Ox3. NAD. HENT: Normocephalic. Atraumatic. Eyes: PER. Conjunctiva pink, sclera clear. Neck: No overt JVD. Heart: Distant heart sounds. Regular at 60 bpm. No murmur appreciated. Lungs: Diminished. Decreased. Absent breath sounds on the right. No wheeze. Abdomen: +BS. Soft. Nontender. No organomegaly. Extremities: Minimal edema. No cyanosis. Limited neurological examination is without focal deficits. Results & Data Vital Signs (Past 12 Hours) Vital Signs Temp Pulse Pulse Pulse Resp BP Pulse Ox 03/26/23 10:45 36.7 C 82 20 108/68 90 03/26/23 11:07 76 22 90 03/26/23 08:30 80 24 91 03/26/23 07:15 36.6 C 70 22 118/72 95 03/26/23 07:28 78 24 90 03/26/23 03:02 88 L 03/26/23 02:52 85 L 03/26/23 02:50 84 L 03/26/23 02:49 82 L 03/26/23 02:56 36.4 C L 69 18 120/78 86 L 03/26/23 02:05 96 H 32 H 94 O2 Del Method O2 Flow Rate FiO2 03/26/23 10:45 High Flow Nasal Cannula 03/26/23 11:07 High Flow Nasal Cannula 40 100 03/26/23 08:30 High Flow Nasal Cannula 40 90 03/26/23 07:15 BiPAP 03/26/23 07:28 95 03/26/23 03:02 BiPAP 95 03/26/23 02:52 BiPAP 95 03/26/23 02:50 BiPAP 90 03/26/23 02:49 BiPAP 80 03/26/23 02:56 BiPAP 03/26/23 02:05 80 Laboratory Results Comprehensive Metabolic Panel 03/26/23 Range/Units 05:50 Sodium 140 (136-145) mmol/L Potassium 4.2 (3.5-5.1) mmol/L Chloride 96 L (98-107) mmol/L Carbon Dioxide 41 H* (21-32) mmol/L BUN 15 (6-23) mg/dl Creatinine 0.50 L (0.6-1.2) mg/dl Glucose 105 H (70-99(Fasting)) mg/dl Calcium 8.9 (8.6-10.3) mg/dl Intake and Output 03/25/23 03/26/23 03/26/23 22:59 06:59 14:59 Intake Total 240 / 240 Output Total 1249 Balance -1009 - Intake: Oral 240 / 240 Output: Urine 1249 (2) COPD (chronic obstructive pulmonary disease) COPD type: unspecified COPD Qualified Code(s): J44.9 - Chronic obstructive pulmonary disease, unspecified (3) Metastatic lung cancer (metastasis from lung to other site) Laterality: unspecified laterality Qualified Code(s): C34.90 - Malignant neoplasm of unspecified part of unspecified bronchus or lung
[2023-03-26 15:04] VITALS: PULSE 72
--- NOTE | 2023-03-26 16:12 | Discharge Summary ---
Date of Service March 26, 2023 Admission HPI Per Admitting Provider Ms. Ga is a 68 year old female with pmhx including but not limited to COPD, pulmonary hypertension, BHAVIK, lung cancer (s/p pleural catheter to drain pleural effusion every other day, started Keytruda 2.5 weeks ago), chronic respiratory failure with hypoxia and hypercapnia on 5 LPM O2 with BiPAP for sleep, CAD, carotid stenosis, chronic HFpEF, NIDDM-II (associated with HTN and HLP), hypothyroidism, and chronic alcohol use. She presented with acute onset of respiratory failure, likely due to worsening pleural effusions as well as equipment malfunction at home. Ms. Ga states she was in her usual health up through Thursday. Thursday her O2 concentrator was not working so the O2 company delivered a new one. She instructed the person who delivered it that she is on 5L. Somehow they set it at 4 LPM and she did not realize it. When she woke up Thursday morning she was extremely short of breath, struggling to breath. Her daughter arrived and drained the Pleurex catheter and adjusted the concentrator. Ms. Ga was feeling much better afterward. She woke up today () feeling as though she was extremely short of breath again. She denies any associated dizziness, lightheadedness, f/c/n/v, POZO, change in appetite, malaise, fatigue, weakness, CP/pressure/tightness, palpitations, abdominal pain, and dysuria. She has intermittent diarrhea at baseline since her gallbladder was removed, that remains at baseline. She has no other complaints. By the time of my exam she is feeling much better. ED Course: VS notable for: BP 166/69. HR 108, RR 33, O2 80% ORA, 89% on BiPAP. Afebrile. b/w notable for: wbc 18.5, CO2 37, Alk Phos 148. Remaining CMP, CBC unimpressive. PT INR wnl. CXR read as right pleural effusion, RLL dense opacities worse since February. Notable for vascular congestion. She was placed on BiPAP and given Furosemide. Pulm was consulted and drained her pleural catheter. BP normalized. By the time of my exam she is feeling much better Admission Exam Per Admitting Provider General:NAD, non-toxic appearing, appears comfortable on BiPAP, speaking in full sentences, obese (BMI 40) Head:NC AT Eyes: anicteric sclera, no conjunctival injection Nose:nares patent, normal Mouth:MMM, poor dentition Neck:supple, trachea midline CV:RRR S1 S2 Pulm:+ crackles, rhonchi Abd/GI:+ BS, soft, NT, ND, no guarding :no sherman Ext:no pretibial edema, peripheral pulses intact MSK:normal bulk and tone Neuro:no gross deficits, moving all 4 extremities symmetrically Psych:pleasant mood and affect Skin:visible skin is warm, dry, and without rash. Pt not fully undressed for exam. Principal Diagnosis Respiratory failure Discharge Exam General: Alert, oriented. No acute distress sitting up in bed with nasal cannula in nares. Skin: No noted rashes or bruises Psych: Appropriate mood and affect Neuro: moves with difficulty HEENT: NC/AT CV: RRR Resp: Breath sounds decreased bilaterally Abdomen:Soft, nontender, nondistended. Extremities: No edema in lower extremities bilaterally. Discharge Data Allergies Allergy/AdvReac Type Severity Reaction Status Date / Time tetracycline AdvReac Mild HEADACHE Verified 02/24/23 09:38 Consultations 03/17/23 13:27 ED Decision to Admit Stat 03/21/23 08:00 Consult Cardiology Routine 03/21/23 08:24 Consult Pulmonology Routine 03/23/23 09:14 Consult Palliative Care Routine Ordered Studies 03/21/23 10:33 CT angio chest PE protocol Urgent Hospital Course (1) Acute and chronic respiratory failure with hypoxia: Pt is a 68yoF with PMHx significant for metastatic lung cancer admitted with respiratory distress. Currently comfort measures and being transitioned to inpatient hospice care. Palliative on board. Respiratory Distress in the setting of acute on chronic HFpEF and worsening pleural effusion d/t underlying lung ca Has PleurX catheter Atrial fibrillation with RVR (2) Pleural effusion on right: Had pleurX catheter Comfort measures (3) Metastatic lung cancer (metastasis from lung to other site): recently started Keytruda Comfort measures (4) Acute and chronic respiratory failure with hypercapnia: as above under acute and chronic respiratory failure with hypoxia Comfort measures (5) Chronic diastolic (congestive) heart failure: acute on chronic diastolic CHF, + vascular congestion on imaging Comfort measures (6) Pulmonary hypertension: comfort measures (7) CAD (coronary artery disease): comfort measures (8) Diabetes mellitus, type II: comfort measures (9) COPD, group D, by GOLD 2017 classification: comfort measures (10) HTN (hypertension): comfort measures (11) Hypothyroid: comfort measures (12) HLD (hyperlipidemia): comfort measures Total Time Total Time Spent Total Time Spent (In Minutes): >30 Discharge Plan Discharge Items Patient Disposition: Home - Home Health Services Reason For Visit: RESPIRATORY DISTRESS Discharge Diagnosis: Comfort measures, Respiratory distress Activity: Resume your previous activity Non-emergency contact: Primary Care Provider and Hospitalist Call non-emergency contact if: your symptoms worsen Follow-up/Referrals: Jc Anthony PA-C [Hospitalist] - Bipin Ramos MD [Primary Care Provider] - () Diet: Regular Addtl Attending Provider Instructions: You are being discharged to hospice for comfort measures/care. Pending Studies at Discharge: No Stand-Alone Forms: My [facility] [employer], Smoking Cessation Medications and DC Order Prescriptions: Discontinued metoprolol succinate 25 mg tablet extended release 24 hr 12.5 mg PO BID aspirin 81 mg Tablet,Delayed Release (Dr/Ec) 81 mg PO QAM furosemide [Lasix] 40 mg tablet 40 mg PO QAM Qty: 30 0RF pravastatin 40 mg tablet 40 mg PO HS metformin 500 mg tablet 500 mg PO BIDM amlodipine 2.5 mg tablet 2.5 mg PO DAILY ezetimibe 10 mg tablet 10 mg PO DAILY Elderberry 200 mg Capsule 200 mg PO QAM Qty: 0 levothyroxine 150 mcg tablet 150 mcg PO QAM turmeric 400 mg Capsule 400 mg PO DAILY Trelegy Ellipta 100-62.5-25 mcg blister with device 1 inh INHALATION QAM ondansetron HCl 8 mg tablet 8 mg PO Q8H PRN (Reason: Nausea or Vomiting) potassium chloride 10 mEq tablet extended release 10 meq PO QAM Discharge Orders: Discharge Order (Routine); Ordered 03/26/23 Ordered By: Naz Moreno Admission Data Admit Date/Time: 03/17/23 14:40 Attending Provider: Naz Moreno Admit Provider: Bettye Hernandez Primary Care Provider: Bipin Ramos Other Providers: Vidal Elkins ; [facility],Home [facility] ; Bettye Hernandez ; Bob Jameson ; Frank El ; Shira Kothari
[2023-03-27] MEDS ORDERED: FUROSEMIDE 40 MG TAB PO SCH (09:00)
== END 2023-03-26 16:29 | disposition home health service (06) | DRG 291 ==
LOC: ED 11:06 → 2W 14:40 → SUATTDRO 14:40 → 2W 17:19 → 4W 03-21 02:49 → 3E 03-26 15:39

== ENCOUNTER 2023-03-26 14:40 | Inpatient (IN) ==
[2023-03-26] MEDS ORDERED: GLYCOPYRROLATE 0.2 MG/ML VIAL IV PRN (16:44)
[2023-03-26] MEDS ORDERED: ONDANSETRON INJ 2 MG/ML 2 ML VIAL IV PRN (16:44)
[2023-03-26] MEDS ORDERED: ACETAMINOPHEN 325 MG TAB PO PRN (16:44)
[2023-03-26] MEDS ORDERED: ONDANSETRON 4 MG OD TAB SL PRN (16:44)
[2023-03-26] MEDS ORDERED: MoRPHine SULFATE 10 MG/0.5 ML UDP PO PRN (16:44)
[2023-03-26] MEDS ORDERED: HYDROmorphone BOLUS from BAG IV PRN (16:44)
[2023-03-26] MEDS ORDERED: LORazepam 0.5 MG TAB PO PRN (16:44)
[2023-03-26] MEDS ORDERED: LORazepam 2 MG/1 ML VIAL IV PRN (16:44)
[2023-03-26] MEDS ORDERED: HYDROmorphone/NSS 100 MG/100 ML BAG IV SCH (16:45)
--- NOTE | 2023-03-26 16:49 | History & Physical Report ---
Date of Service March 26, 2023 Assessment & Plan (1) Comfort measures only status: Plan: Pt is a 68yoF with PMHx significant for metastatic lung cancer admitted with respiratory distress. Currently comfort measures and being transitioned to inpatient hospice care. Palliative on board. 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 Made comfort care today and re-admitted for inpatient hospice care. Following with palliative medicine. Allergies Allergy/AdvReac Type Severity Reaction Status Date / Time tetracycline AdvReac Mild HEADACHE Verified 02/24/23 09:38 Home Medications Medication Instructions Recorded Confirmed Type aspirin 81 mg tablet,delayed 81 mg PO QAM 01/13/19 02/24/23 History release furosemide 40 mg tablet (Lasix) 40 mg PO QAM #30 tabs 01/16/19 03/17/23 Rx amlodipine 2.5 mg tablet 2.5 mg PO DAILY 03/18/21 03/17/23 History elderberry fruit 200 mg capsule 200 mg PO QAM ##0 03/18/21 02/24/23 History ezetimibe 10 mg tablet 10 mg PO DAILY 03/18/21 03/17/23 History metformin 500 mg tablet 500 mg PO BIDM 03/18/21 03/17/23 History levothyroxine 150 mcg tablet 150 mcg PO QAM 10/24/22 03/17/23 History turmeric 400 mg capsule 400 mg PO DAILY 10/24/22 02/24/23 History metoprolol succinate 25 mg 12.5 mg PO BID 12/02/22 03/17/23 History tablet,extended release 24 hr fluticasone fur. 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 Alcohol use Alkalosis, metabolic CAD (coronary artery disease) NSTEMI 2008 - moderate nonobstructive disease, no stenting Carotid stenosis Chronic diastolic (congestive) heart failure Chronic respiratory failure with hypoxia Constipation COPD, group D, by GOLD 2017 classification Diabetes mellitus, type II HLD (hyperlipidemia) HTN (hypertension) Hypothyroid Malignant pleural effusion Metastatic lung cancer (metastasis from lung to other site) (12/11/22) Obesity (BMI 30.0-34.9) BHAVIK on CPAP Primary cancer of right lower lobe of lung (01/31/22) s/p radiation Pulmonary hypertension Right lower lobe pneumonia Surgical History S/P cholecystectomy Family History Mother , age 69 Heart disease Rheumatoid arthritis Osteoarthritis Father , age 69 Myocardial infarction Asthma COPD (chronic obstructive pulmonary disease) Sister , age 29 Lung disease Other Diabetes Social History Smoking Status: Former smoker Tobacco Type: Cigarettes Age Started Using Tobacco: 18; Age Quit Using Tobacco: 60; packs per day: 2; Second Hand Exposure: No; Do You Dip or Chew Tobacco: No; Hx Alcohol Use: Yes Alcohol type: beer Alcohol type Comment: 2-3 beers per week Alcohol Intake Frequency: 2-3 x/Week Hx Substance Use: No Preferred Language: Stateless Communication Ability: Effective Heat Treater Helper Required: No Beliefs That Will Affect Care: Spiritual marital status: / Current Living Situation: Alone Current Living Situation Comment: Pt's daughters lives near by current occupational status: retired and disabled current occupation: [employer] How many Children do You have: 3 Feels Safe at Home: Yes caffeine: Yes (Diet pepsi - 4 cans/day) Assistive Devices: CPAP, Glasses and Oxygen - Continuous Review of Systems Review of Systems: All systems reviewed & are unremarkable except as noted in HPI & below Physical Exam Physical Exam: General: Alert, oriented. No acute distress sitting up in bed with nasal cannula in nares. Skin: No noted rashes or bruises Psych: Appropriate mood and affect Neuro: moves with difficulty HEENT: NC/AT CV: RRR Resp: Breath sounds decreased bilaterally Abdomen:Soft, nontender, nondistended. Extremities: No edema in lower extremities bilaterally. (7) COPD (chronic obstructive pulmonary disease) COPD type: unspecified COPD Qualified Code(s): J44.9 - Chronic obstructive pulmonary disease, unspecified
[2023-03-27 08:20] VITALS: PULSE 105; O2SAT 90
--- NOTE | 2023-03-27 10:49 | Death Pronouncement Note ---
Date of Service March 27, 2023 Pronouncement Note Admission Date Admission Date: March 26, 2023 Date and Time of Date of : 03/27/23 Time of : 10:05 PCOD Preliminary cause of : Respiratory failure Contributing Factors (1) Comfort measures only status: (2) Acute and chronic respiratory failure with hypoxia: (3) 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: (4) Pleural effusion on right: (5) Heart failure, diastolic, with acute decompensation: (6) PAF (paroxysmal atrial fibrillation): (7) COPD (chronic obstructive pulmonary disease): Hospital Course Hospital Course: Pt with complicated medical history significant for metastatic lung cancer admitted with acute respiratory failure. Followed with palliative medicine, was made comfort measures on 03/26/23, and admitted for inpatient hospice. Passed on 03/27/2023. Summary Additional details: Notified that patient had passed after being on comfort measures on 03/26/2023 and admitted for inpatient hospice care. Additional Data Confirmation of : no pulse, no respirations, no heart sounds and pupils fixed and dilated Family: contacted Attending/PCP notified?: Yes Attending physician: Naz Moreno MD
--- NOTE | 2023-03-27 11:00 | Discharge Summary ---
Date of Service March 27, 2023 Admission HPI Per Admitting Provider 68yoF with a complicated PMHx of metastatic lung cancer with malignant pleural effusion and respiratory distress. Made comfort care today and re-admitted for inpatient hospice care. Following with palliative medicine. Admission Exam Per Admitting Provider General: Alert, oriented. No acute distress sitting up in bed with nasal cannula in nares. Skin: No noted rashes or bruises Psych: Appropriate mood and affect Neuro: moves with difficulty HEENT: NC/AT CV: RRR Resp: Breath sounds decreased bilaterally Abdomen:Soft, nontender, nondistended. Extremities: No edema in lower extremities bilaterally. Principal Diagnosis Acute respiratory failure Discharge Exam General: laying in bed with eyes closed Skin: No noted rashes or bruises Neuro: not moving HEENT: NC/AT CV: No pulse or heart sounds Resp: no breath sounds bilaterally Discharge Data Allergies Allergy/AdvReac Type Severity Reaction Status Date / Time tetracycline AdvReac Mild HEADACHE Verified 02/24/23 09:38 Consultations 03/26/23 17:23 Consult Palliative Care Routine Hospital Course (1) Comfort measures only status: 68yoF with PMHx significant for metastatic lung cancer admitted with respiratory distress. Was comfort measures and transitioned to inpatient hospice care on 03/27/23. Passed at about 10:05AM on 03/27/2023. (2) Acute and chronic respiratory failure with hypoxia: comfort measures (3) 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: comfort measures (4) Pleural effusion on right: comfort measures (5) Heart failure, diastolic, with acute decompensation: comfort measures (6) PAF (paroxysmal atrial fibrillation): comfort measures (7) COPD (chronic obstructive pulmonary disease): comfort measures Total Time Total Time Spent Total Time Spent (In Minutes): >30 minutes in pronouncing, contacting family and documentation (including signing certificate) Discharge Plan Discharge Items Patient Disposition: Other Date/Time: 03/27/23 14:27
--- NOTE | 2023-03-27 11:57 | Palliative Care Progress Note ---
Date of Service March 27, 2023 Assessment & Plan (1) Palliative care by specialist: (2) Dyspnea and respiratory abnormalities: (3) Acute and chronic respiratory failure with hypoxia: (4) 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: (5) Heart failure, diastolic, with acute decompensation: (6) COPD (chronic obstructive pulmonary disease): (7) Metastatic lung cancer (metastasis from lung to other site): Plan * Actively dying * no changes; EOL mgt per hospice orders Thank you for allowing us to participate in the ongoing care of this patient. Please don't hesitate to call or page with any additional concerns. Dr. Charisma Hartmann DNP Director, Palliative Care Admission and Anticipated Discharge Date Admission Date: March 26, 2023 Subjective pt transitioned to comfort care yesterday and a GIP consult was requested. 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 was initiated by hospice patient desired comfort approach, no prolongation of life support and peaceful EOL no interactive this AM Review of Systems Review of Systems: Unobtainable due to reduced consciousness Physical Exam Physical Exam: sedated, inc resp effort noted consistent with terminal lung failure color pale skin cool cyanotic changes with mottling noted Results & Data Vital Signs (Past 12 Hours) Vital Signs Pulse Resp Pulse Ox O2 Del Method O2 Flow Rate FiO2 03/27/23 08:15 105 H 32 H 90 100 03/27/23 07:45 28 H High Flow Nasal Cannula 40 100 03/27/23 03:04 High Flow Nasal Cannula 40 100 PG Care Time/CCT Total # of Minutes Spent Total Time Spent: 45 Total Time Spent with Patient: Total time spent is greater than 50% in coordination of care (as documented) at patient's floor/unit and/or counseling patient: Coding [place] [address] SUB INP/OBS CARE 2/35MIN Patient Type Established History Expanded Problem Focused Exam Expanded Problem Focused Medical Decision Making Moderate Complexity Diagnoses Palliative care by specialist Z51.5 Dyspnea and respiratory abnormalities R06.00; R06.89 Acute and chronic respiratory failure with hypoxia J96.21 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 C34.90; C78.7 Heart failure, diastolic, with acute decompensation I50.33 COPD (chronic obstructive pulmonary disease) J44.9 COPD type: unspecified COPD Metastatic lung cancer (metastasis from lung to other site) C34.90 Laterality: unspecified laterality (6) COPD (chronic obstructive pulmonary disease) COPD type: unspecified COPD Qualified Code(s): J44.9 - Chronic obstructive pulmonary disease, unspecified (7) Metastatic lung cancer (metastasis from lung to other site) Laterality: unspecified laterality Qualified Code(s): C34.90 - Malignant neoplasm of unspecified part of unspecified bronchus or lung
== END 2023-03-27 17:41 | disposition expired | DRG 951 ==
LOC: 3E 14:40